=== PATIENT | female | born 1945 | race Caucasian/White ===

== ENCOUNTER → 2016-07-13 | Outpatient (CLI) | payer MEDICARE, BC ==
[2016-07-13 13:29] LABS: Basophils % (A) 1 %; CH 30.3; CHCM 31.4; Eosinophils # (A) 0.2 k/uL (0-0.7); Eosinophils % (A) 3 %; HCT 40.3 % (34.0-46.0); HDW 2.13; HGB 12.6 gm/dL (11.4-16.0); Luc # (Auto) 0.13; Luc % (Auto) 2; Lymphocytes # (A) 1.3 k/uL (1.0-4.8); Lymphocytes % (A) 18 %; MCH 30.4 pg (25.0-35.0); MCHC 31.3 g/dL (31.0-37.0); MCV 96.9 fL (80.0-100.0); Monocytes # (A) 0.4 k/uL (0-1.0); Monocytes % (A) 5 %; Neutrophils % (A) 72 %; RBC 4.16 m/uL (3.80-5.40); RDW 13.5 % (11.5-15.5); WBC (Perox) 7.72
[2016-07-13 13:45] LABS: ALT 46 U/L (9-52); AST 38 U/L (14-36); Alkaline Phosphatase 121 U/L (38-126); Anion Gap 8 mmol/L; Blood Urea Nitrogen 20 mg/dL (7-17); Calcium 9.8 mg/dL (8.4-10.2); Carbon Dioxide 29 mmol/L (22-30); Chloride 103 mmol/L (98-107); Cholesterol 197 mg/dL (<200); Glucose 152 mg/dL (74-99); HDL Cholesterol 80 mg/dL (40-60); Iron 117 ug/dL (37-170); Magnesium 1.7 mg/dL (1.6-2.3); Non-African American GFR(MDRD) >60 (>60 ml/min/1.73 sqM); Potassium 4.8 mmol/L (3.5-5.1); Sodium 140 mmol/L (137-145); Total Bilirubin 0.4 mg/dL (0.2-1.3); Total Protein 6.9 g/dL (6.3-8.2); Triglycerides 158 mg/dL (<150); Uric Acid 3.4 mg/dL (3.7-7.4)
[2016-07-13 13:54] LABS: % Iron Saturation 39.9 % (20-50); Total Iron Binding Capacity 293 ug/dL (265-497)
== END | disposition home or self-care (01) ==
LOC: LABWHC1 11:26
PROVIDERS: ATTEND Internal Medicine Nephrology
DX: N18.3 Chronic kidney disease, stage 3 (moderate) (principal); D64.9 Anemia, unspecified; E55.9 Vitamin D deficiency, unspecified; E11.65 Type 2 diabetes mellitus with hyperglycemia; N25.81 Secondary hyperparathyroidism of renal origin; M10.9 Gout, unspecified
CPT/HCPCS: 36415; 80053; 80061; 82306; 82728; 83540; 83550; 83735; 83970; 84100; 84443; 84550; 85025

== ENCOUNTER → 2016-10-18 | Outpatient (CLI) | payer MEDICARE, BC ==
[2016-10-18 12:18] LABS: ALT 34 U/L (9-52); AST 35 U/L (14-36); Alkaline Phosphatase 128 U/L (38-126); Anion Gap 9 mmol/L; Blood Urea Nitrogen 27 mg/dL (7-17); Calcium 9.7 mg/dL (8.4-10.2); Carbon Dioxide 29 mmol/L (22-30); Chloride 101 mmol/L (98-107); Cholesterol 220 mg/dL (<200); Glucose 217 mg/dL (74-99); HDL Cholesterol 85 mg/dL (40-60); Non-African American GFR(MDRD) >60 (>60 ml/min/1.73 sqM); Potassium 4.5 mmol/L (3.5-5.1); Sodium 139 mmol/L (137-145); Total Bilirubin 0.6 mg/dL (0.2-1.3); Total Protein 7.4 g/dL (6.3-8.2); Triglycerides 114 mg/dL (<150)
== END | disposition home or self-care (01) ==
LOC: LABWHC1 11:16
PROVIDERS: ATTEND Internal Medicine Endocrinology, Diabetes & Metabolism
DX: E11.65 Type 2 diabetes mellitus with hyperglycemia (principal)
CPT/HCPCS: 36415; 80053; 80061; 84443

== ENCOUNTER → 2016-11-05 | Outpatient (CLI) | payer MEDICARE, BC ==
[2016-11-05 11:51] LABS: Basophils % (A) 0 %; CH 30.6; CHCM 31.8; Eosinophils # (A) 0.2 k/uL (0-0.7); Eosinophils % (A) 3 %; HCT 40.8 % (34.0-46.0); HGB 12.8 gm/dL (11.4-16.0); Luc # (Auto) 0.12; Luc % (Auto) 2; Lymphocytes # (A) 1.5 k/uL (1.0-4.8); Lymphocytes % (A) 20 %; MCH 30.5 pg (25.0-35.0); MCHC 31.4 g/dL (31.0-37.0); MCV 96.9 fL (80.0-100.0); Monocytes # (A) 0.3 k/uL (0-1.0); Monocytes % (A) 4 %; Neutrophils # (A) 5.5 k/uL (1.3-7.7); Neutrophils % (A) 72 %; RBC 4.21 m/uL (3.80-5.40); RDW 13.3 % (11.5-15.5); WBC 7.7 k/uL (3.8-10.6); WBC (Perox) 7.88
[2016-11-05 12:10] LABS: Anion Gap 8 mmol/L; Blood Urea Nitrogen 20 mg/dL (7-17); Carbon Dioxide 30 mmol/L (22-30); Chloride 103 mmol/L (98-107); Glucose 134 mg/dL (74-99); Iron 143 ug/dL (37-170); Magnesium 1.8 mg/dL (1.6-2.3); Non-African American GFR(MDRD) >60 (>60 ml/min/1.73 sqM); Potassium 4.6 mmol/L (3.5-5.1); Sodium 141 mmol/L (137-145); Uric Acid 3.3 mg/dL (3.7-7.4)
[2016-11-05 12:21] LABS: % Iron Saturation 48.8 % (20-50); Prealbumin 19 mg/dL (18-36); Total Iron Binding Capacity 293 ug/dL (265-497)
[2016-11-05 12:26] LABS: Creatinine,Urine Random 198.4 mg/dL
[2016-11-05 12:59] LABS: Vitamin B12 625 pg/mL
== END | disposition home or self-care (01) ==
LOC: LABWHC1 10:56
PROVIDERS: ATTEND Nurse Practitioner Family
DX: D64.9 Anemia, unspecified (principal); M10.9 Gout, unspecified; N39.0 Urinary tract infection, site not specified; E55.9 Vitamin D deficiency, unspecified; N18.3 Chronic kidney disease, stage 3 (moderate); R53.83 Other fatigue; Z98.84 Bariatric surgery status
CPT/HCPCS: 36415; 80048; 82040; 82306; 82570; 82607; 82728; 82747; 83540; 83550; 83735; 83970; 84100; 84134; 84156; 84425; 84550; 84630; 85025

== ENCOUNTER 2016-12-16 02:56 | Observation (INO) | payer MEDICARE, BC ==
[2016-12-16 04:07] LABS: Appearance,Urine Clear (Clear); Bacteria,Urine Occasional /hpf; Bilirubin,Urine Negative (Negative); Glucose,Urine (UA) 4+ (Negative); Ketones,Urine Negative (Negative); Leukocyte Esterase,Urine Small (Negative); Nitrite,Urine Negative (Negative); Particle Count 7001; Protein,Urine 2+ (Negative); RBC,Urine 1 /hpf (0-5); Specific Gravity,Urine 1.018 (1.001-1.035); Squamous Epithelial Cell,Urine <1 /hpf (0-4); UA Billing (MACRO vs. MICRO) MICRO; Urobilinogen,Urine <2.0 mg/dL (<2.0); WBC,Urine 5 /hpf (0-5)
[2016-12-16] MEDS ORDERED: SODIUM CHLORIDE 0.9% 1,000 ML IV ONE (04:08)
--- NOTE | 2016-12-16 04:08 | ED ---
Fall HPI - General Chief Complaint: Fall Stated Complaint: altered mental status,fall Time Seen by Provider: 12/16/16 03:00 Source: EMS Mode of arrival: EMS - History of Present Illness Initial Comments: Patient is a 71-year-old woman brought by EMS to be evaluated after family found her lying on the floor. The patient does not recall how she came to be on the floor. She is denying any trauma or injury. MD Complaint: fall -: hour(s) When Fall Occurred: unsure Fall Witnessed: no Place Fall Occurred: home Loss of Consciousness: unsure Prolonged Down Time?: unclear - Related Data Home Medications Medication Instructions Recorded Confirmed Bumetanide [BUMEX] 2 mg PO QAM PRN 10/02/14 12/16/16 Cholecalciferol [Vitamin D3] 2,000 unit PO TID 10/02/14 12/16/16 Clopidogrel [Plavix] 75 mg PO AC-SUPPER 10/02/14 12/16/16 Doxercalciferol [Hectorol] 0.5 mcg PO MOTUWETHFR 10/02/14 12/16/16 Fluticasone Propionate [Flonase 2 spray EA NOSTRIL BID 10/02/14 12/16/16 Allergy Relief] Gabapentin [Neurontin] 100 mg PO QAM 10/02/14 12/16/16 Insulin Detemir [Levemir] 10 unit SQ HS 10/02/14 12/16/16 Loteprednol Etabonate [Lotemax] 1 drop BOTH EYES DAILY 10/02/14 12/16/16 Pantoprazole Sodium 40 mg PO AC-BRKFST 10/02/14 12/16/16 Refresh Optive Tears 1 drops BOTH EYES DAILY 10/02/14 12/16/16 cycloSPORINE [Restasis] 1 drop BOTH EYES BID 10/02/14 12/16/16 DULoxetine HCL [Cymbalta] 60 mg PO HS 04/16/15 12/16/16 hydrOXYzine PAMOATE [Vistaril] 50 mg PO TID PRN 04/16/15 12/16/16 traZODone HCL [Desyrel] 50 mg PO HS 06/06/15 12/16/16 ALPRAZolam [Xanax] 0.5 mg PO TID PRN 12/16/16 12/16/16 Diclofenac Sodium [Voltaren Gel] 2 gram TOPICAL DAILY PRN 12/16/16 12/16/16 Doxercalciferol [Hectorol] 0.5 mcg PO MOTUWETHFRSA 12/16/16 12/16/16 Gabapentin [Neurontin] 100 mg PO AC-SUPPER 12/16/16 12/16/16 Levothyroxine Sodium [Synthroid] 137 mcg PO AC-BRKFST 12/16/16 12/16/16 Milk Thistle 200 mg PO DAILY 12/16/16 12/16/16 amLODIPine BESYLATE [Norvasc] 5 tab PO AC-BRKFST 12/16/16 12/16/16 glipiZIDE [Glucotrol] 2.5 mg PO AC-BID 12/16/16 12/16/16 oxyCODONE-APAP 7.5-325MG [Percocet 1 tab PO BID 12/16/16 12/16/16 7.5-325 mg] Allergies Allergy/AdvReac Type Severity Reaction Status Date / Time triamcinolone Allergy Unknown Verified 12/16/16 07:59 caffeine AdvReac Nausea & Verified 12/16/16 07:59 Vomiting & Diarrhea hydrocodone bitartrate AdvReac Itching Verified 12/16/16 07:59 [From Lorcet (hydrocodone)] Penicillins AdvReac Nausea & Verified 12/16/16 07:59 Vomiting & Diarrhea tramadol HCl [From Ultram] AdvReac Itching Verified 12/16/16 07:59 ADHESIVE TAPE Allergy Rash/Hives Uncoded 12/16/16 03:20 BEE STINGS Allergy Swelling Uncoded 12/16/16 03:20 Review of Systems ROS Statement: Those systems with pertinent positive or pertinent negative responses have been documented in the HPI. ROS Other: All systems not noted in ROS Statement are negative. Constitutional: Denies: fever, chills, weakness Eyes: Denies: vision change Respiratory: Denies: cough, dyspnea Cardiovascular: Denies: chest pain Gastrointestinal: Denies: abdominal pain, vomiting Musculoskeletal: Denies: back pain Neurological: Denies: headache Past Medical History Past Medical History: Chest Pain / Angina, Diabetes Mellitus, Fibromyalgia, GERD /Reflux, Hyperlipidemia, Hypertension, Osteoarthritis (OA), Renal Disease, Rheumatoid Arthritis (RA), Thyroid Disorder Additional Past Medical History / Comment(s): BURSITIS, falls, chronic sacral wound(wcc) History of Any Multi-Drug Resistant Organisms: None Reported Past Surgical History: Adenoidectomy, Cholecystectomy, Hysterectomy, Orthopedic Surgery, Tonsillectomy Additional Past Surgical History / Comment(s): 3 RIGHT KNEE SURGERIES AND 2 LEFT TOTAL KNEE REPLACEMENTS SURGERIES. D&C'S. Lap Ignacio-en-Y gastric bypass [place] [address] Zambrano , total hysterectomy for fibroid tumor, tubal ligation Past Anesthesia/Blood Transfusion Reactions: Motion Sickness Past Psychological History: Anxiety, Depression Smoking Status: Never smoker Past Alcohol Use History: None Reported Past Drug Use History: None Reported - Past Family History Mother Family Medical History: Coronary Artery Disease (CAD) Additional Family Medical History / Comment(s): age 90 of heart failure. Had hx of Parkinsons and Narcolepsy Father Family Medical History: Coronary Artery Disease (CAD) Additional Family Medical History / Comment(s): age 73 of massive heart attack General Exam Limitations: altered mental status General appearance: alert, in no apparent distress, obese Head exam: Present: atraumatic, normocephalic, normal inspection Eye exam: Present: normal appearance, PERRL, EOMI. Absent: scleral icterus, conjunctival injection Neck exam: Present: normal inspection, tenderness (There is tenderness over the low cervical spine in the midline.), other (In cervical collar) Respiratory exam: Present: rales (Bilateral bases). Absent: respiratory distress, wheezes, rhonchi, stridor, chest wall tenderness Cardiovascular Exam: Present: regular rate, normal rhythm, systolic murmur GI/Abdominal exam: Present: soft. Absent: distended, tenderness, guarding, rebound, rigid Back exam: Present: normal inspection. Absent: CVA tenderness (R), CVA tenderness (L) Neurological exam: Present: alert, CN II-XII intact. Absent: oriented X3 ( Patient oriented to person and realizes that she is a hospital, she did not recall the exact date), motor sensory deficit Skin exam: Present: warm, dry, intact, normal color Course Vital Signs 12/16/16 12/16/16 12/16/16 03:14 04:12 06:24 Temperature 97.1 F L Pulse Rate 83 74 Respiratory 18 18 Rate Blood Pressure 188/74 179/81 170/81 O2 Sat by Pulse 94 L 98 94 L Oximetry 12/16/16 12/16/16 12/16/16 07:28 07:45 08:06 Temperature 97.9 F Pulse Rate 63 Respiratory 18 Rate Blood Pressure 200/94 186/89 O2 Sat by Pulse 97 Oximetry Medical Decision Making - Lab Data Result diagrams: 12/17/16 05:37 12/17/16 05:37 Lab Results 12/16/16 12/16/16 12/16/16 Range/Units 03:30 03:30 03:30 WBC 7.1 (3.8-10.6) k/uL RBC 3.95 (3.80-5.40) m/uL Hgb 12.3 (11.4-16.0) gm/dL Hct 37.0 (34.0-46.0) % MCV 93.6 (80.0-100.0) fL MCH 31.0 (25.0-35.0) pg MCHC 33.1 (31.0-37.0) g/dL RDW 13.8 (11.5-15.5) % Plt Count 240 (150-450) k/uL Neutrophils % 73 % Lymphocytes % 16 % Monocytes % 6 % Eosinophils % 3 % Basophils % 1 % Neutrophils # 5.2 (1.3-7.7) k/uL Lymphocytes # 1.2 (1.0-4.8) k/uL Monocytes # 0.4 (0-1.0) k/uL Eosinophils # 0.2 (0-0.7) k/uL Basophils # 0.1 (0-0.2) k/uL PT 10.1 (9.0-12.0) sec INR 1.0 (<1.1) APTT 23.1 (22.0-30.0) sec D-Dimer 0.99 H (<0.60) mg/L FEU Sodium 138 (137-145) mmol/L Potassium 4.7 (3.5-5.1) mmol/L Chloride 103 (98-107) mmol/L Carbon Dioxide 24 (22-30) mmol/L Anion Gap 11 mmol/L BUN 30 H (7-17) mg/dL Creatinine 0.80 (0.52-1.04) mg/dL Est GFR (MDRD) Af Amer >60 (>60 ml/min/1.73 sqM) Est GFR (MDRD) Non-Af >60 (>60 ml/min/1.73 sqM) Glucose 390 H (74-99) mg/dL Estimated Ave Glu mg/dL mg/dL Hemoglobin A1c (4.2-6.1) % Calcium 9.3 (8.4-10.2) mg/dL Magnesium 1.9 (1.6-2.3) mg/dL Iron (37-170) ug/dL TIBC (265-497) ug/dL % Saturation (20-50) % Total Bilirubin 0.4 (0.2-1.3) mg/dL AST 30 (14-36) U/L ALT 36 (9-52) U/L Alkaline Phosphatase 116 (38-126) U/L Troponin I (0.000-0.034) ng/mL Total Protein 6.4 (6.3-8.2) g/dL Albumin 3.7 (3.5-5.0) g/dL TSH (0.465-4.680) mIU/L Free T4 (0.78-2.19) ng/dL Free T3 pg/mL (2.8-5.3) pg/ml Urine Color Urine Appearance (Clear) Urine pH (5.0-8.0) Ur Specific [place] (1.001-1.035) Urine Protein (Negative) Urine Glucose (UA) (Negative) Urine Ketones (Negative) Urine Blood (Negative) Urine Nitrite (Negative) Urine Bilirubin (Negative) Urine Urobilinogen (<2.0) mg/dL Ur Leukocyte Esterase (Negative) Urine RBC (0-5) /hpf Urine WBC (0-5) /hpf Ur Squamous Epith Cells (0-4) /hpf Urine Bacteria (None) /hpf Hyaline Casts (0-2) /lpf 12/16/16 12/16/16 12/16/16 Range/Units 03:30 03:30 03:30 WBC (3.8-10.6) k/uL RBC (3.80-5.40) m/uL Hgb (11.4-16.0) gm/dL Hct (34.0-46.0) % MCV (80.0-100.0) fL MCH (25.0-35.0) pg MCHC (31.0-37.0) g/dL RDW (11.5-15.5) % Plt Count (150-450) k/uL Neutrophils % % Lymphocytes % % Monocytes % % Eosinophils % % Basophils % % Neutrophils # (1.3-7.7) k/uL Lymphocytes # (1.0-4.8) k/uL Monocytes # (0-1.0) k/uL Eosinophils # (0-0.7) k/uL Basophils # (0-0.2) k/uL PT (9.0-12.0) sec INR (<1.1) APTT (22.0-30.0) sec D-Dimer (<0.60) mg/L FEU Sodium (137-145) mmol/L Potassium (3.5-5.1) mmol/L Chloride (98-107) mmol/L Carbon Dioxide (22-30) mmol/L Anion Gap mmol/L BUN (7-17) mg/dL Creatinine (0.52-1.04) mg/dL Est GFR (MDRD) Af Amer (>60 ml/min/1.73 sqM) Est GFR (MDRD) Non-Af (>60 ml/min/1.73 sqM) Glucose (74-99) mg/dL Estimated Ave Glu mg/dL 186 mg/dL Hemoglobin A1c 8.1 H (4.2-6.1) % Calcium (8.4-10.2) mg/dL Magnesium (1.6-2.3) mg/dL Iron (37-170) ug/dL TIBC (265-497) ug/dL % Saturation (20-50) % Total Bilirubin (0.2-1.3) mg/dL AST (14-36) U/L ALT (9-52) U/L Alkaline Phosphatase (38-126) U/L Troponin I <0.012 (0.000-0.034) ng/mL Total Protein (6.3-8.2) g/dL Albumin (3.5-5.0) g/dL TSH (0.465-4.680) mIU/L Free T4 1.14 (0.78-2.19) ng/dL Free T3 pg/mL 2.6 L (2.8-5.3) pg/ml Urine Color Urine Appearance (Clear) Urine pH (5.0-8.0) Ur Specific [place] (1.001-1.035) Urine Protein (Negative) Urine Glucose (UA) (Negative) Urine Ketones (Negative) Urine Blood (Negative) Urine Nitrite (Negative) Urine Bilirubin (Negative) Urine Urobilinogen (<2.0) mg/dL Ur Leukocyte Esterase (Negative) Urine RBC (0-5) /hpf Urine WBC (0-5) /hpf Ur Squamous Epith Cells (0-4) /hpf Urine Bacteria (None) /hpf Hyaline Casts (0-2) /lpf 12/16/16 12/16/16 Range/Units 03:30 03:50 WBC (3.8-10.6) k/uL RBC (3.80-5.40) m/uL Hgb (11.4-16.0) gm/dL Hct (34.0-46.0) % MCV (80.0-100.0) fL MCH (25.0-35.0) pg MCHC (31.0-37.0) g/dL RDW (11.5-15.5) % Plt Count (150-450) k/uL Neutrophils % % Lymphocytes % % Monocytes % % Eosinophils % % Basophils % % Neutrophils # (1.3-7.7) k/uL Lymphocytes # (1.0-4.8) k/uL Monocytes # (0-1.0) k/uL Eosinophils # (0-0.7) k/uL Basophils # (0-0.2) k/uL PT (9.0-12.0) sec INR (<1.1) APTT (22.0-30.0) sec D-Dimer (<0.60) mg/L FEU Sodium (137-145) mmol/L Potassium (3.5-5.1) mmol/L Chloride (98-107) mmol/L Carbon Dioxide (22-30) mmol/L Anion Gap mmol/L BUN (7-17) mg/dL Creatinine (0.52-1.04) mg/dL Est GFR (MDRD) Af Amer (>60 ml/min/1.73 sqM) Est GFR (MDRD) Non-Af (>60 ml/min/1.73 sqM) Glucose (74-99) mg/dL Estimated Ave Glu mg/dL mg/dL Hemoglobin A1c (4.2-6.1) % Calcium (8.4-10.2) mg/dL Magnesium (1.6-2.3) mg/dL Iron 100 (37-170) ug/dL TIBC 293 (265-497) ug/dL % Saturation 34.1 (20-50) % Total Bilirubin (0.2-1.3) mg/dL AST (14-36) U/L ALT (9-52) U/L Alkaline Phosphatase (38-126) U/L Troponin I (0.000-0.034) ng/mL Total Protein (6.3-8.2) g/dL Albumin (3.5-5.0) g/dL TSH 2.090 (0.465-4.680) mIU/L Free T4 (0.78-2.19) ng/dL Free T3 pg/mL (2.8-5.3) pg/ml Urine Color Light Yellow Urine Appearance Clear (Clear) Urine pH 6.0 (5.0-8.0) Ur Specific [place] 1.018 (1.001-1.035) Urine Protein 2+ H (Negative) Urine Glucose (UA) 4+ H (Negative) Urine Ketones Negative (Negative) Urine Blood Negative (Negative) Urine Nitrite Negative (Negative) Urine Bilirubin Negative (Negative) Urine Urobilinogen <2.0 (<2.0) mg/dL Ur Leukocyte Esterase Small H (Negative) Urine RBC 1 (0-5) /hpf Urine WBC 5 (0-5) /hpf Ur Squamous Epith Cells <1 (0-4) /hpf Urine Bacteria Occasional H (None) /hpf Hyaline Casts 3 H (0-2) /lpf Disposition Clinical Impression: Syncope, Fall Disposition: ADMITTED IP TO THIS HOSP Condition: Fair
[2016-12-16 04:26] LABS: Basophils # (A) 0.1 k/uL (0-0.2); Basophils % (A) 1 %; CH 30.2; CHCM 32.5; Eosinophils # (A) 0.2 k/uL (0-0.7); Eosinophils % (A) 3 %; HDW 2.16; HGB 12.3 gm/dL (11.4-16.0); Luc # (Auto) 0.09; Luc % (Auto) 1; Lymphocytes # (A) 1.2 k/uL (1.0-4.8); Lymphocytes % (A) 16 %; MCHC 33.1 g/dL (31.0-37.0); MCV 93.6 fL (80.0-100.0); Mean Platelet Volume 7.6; Monocytes # (A) 0.4 k/uL (0-1.0); Monocytes % (A) 6 %; Neutrophils # (A) 5.2 k/uL (1.3-7.7); Neutrophils % (A) 73 %; RBC 3.95 m/uL (3.80-5.40); RDW 13.8 % (11.5-15.5); WBC 7.1 k/uL (3.8-10.6); WBC (Perox) 7.02
[2016-12-16 04:35] LABS: ALT 36 U/L (9-52); AST 30 U/L (14-36); Alkaline Phosphatase 116 U/L (38-126); Anion Gap 11 mmol/L; Blood Urea Nitrogen 30 mg/dL (7-17); Calcium 9.3 mg/dL (8.4-10.2); Carbon Dioxide 24 mmol/L (22-30); Chloride 103 mmol/L (98-107); Glucose 390 mg/dL (74-99); Magnesium 1.9 mg/dL (1.6-2.3); Non-African American GFR(MDRD) >60 (>60 ml/min/1.73 sqM); Potassium 4.7 mmol/L (3.5-5.1); Sodium 138 mmol/L (137-145); Total Bilirubin 0.4 mg/dL (0.2-1.3); Total Protein 6.4 g/dL (6.3-8.2)
[2016-12-16 04:42] LABS: Partial Thromboplastin Time 23.1 sec (22.0-30.0); Prothrombin Time 10.1 sec (9.0-12.0)
--- NOTE | 2016-12-16 05:04 | CT ---
EXAM: CT Head Without Intravenous Contrast CLINICAL HISTORY: Reason: syncope TECHNIQUE: Axial computed tomography images of the head/brain without intravenous contrast. CTDI is 60.30 mGy and DLP is 1072.30 mGy-cm. This CT exam was performed using one or more of the following dose reduction techniques: automated exposure control, adjustment of the mA and/or kV according to patient size, and/or use of iterative reconstruction technique. COMPARISON: 04/16/2015. FINDINGS: Brain: Probable mild microangiopathy.. No hemorrhage. No significant white matter disease. No edema. Ventricles: Unremarkable. No ventriculomegaly. Bones/joints: Unremarkable. No acute fracture. Soft tissues: Unremarkable. Sinuses: Unremarkable as visualized. No acute sinusitis. Mastoid air cells: Unremarkable as visualized. No mastoid effusion. IMPRESSION: Probable mild microangiopathy. No evidence of acute transcortical infarct or acute intracranial hemorrhage. EXAM: CT Cervical Spine Without Intravenous Contrast CLINICAL HISTORY: Reason: syncope TECHNIQUE: Axial computed tomography images of the cervical spine without intravenous contrast. CTDI is 21.40 mGy and DLP is 406.40mGy-cm. This CT exam was performed using one or more of the following dose reduction techniques: automated exposure control, adjustment of the mA and/or kV according to patient size, and/or use of iterative reconstruction technique. COMPARISON: 04/16/2015 FINDINGS: Vertebrae: Unremarkable. No acute fracture. Discs/spinal canal/neural foramina: Multilevel mild to moderate degenerative changes are again present in the cervical spine especially at the levels of C3-C4, C4-C5 and C5-C6. Findings are unchanged from the prior study. Mild narrowing of the canal is again seen. Soft tissues: Unremarkable. Vasculature: Carotid artery calcifications are again noted. Lung apices: Unremarkable as visualized. IMPRESSION: No acute findings. Multilevel mild to moderate iterative changes in cervical spine, as seen on prior study.
--- NOTE | 2016-12-16 05:06 | XR ---
EXAM: XR Chest, 1 View CLINICAL HISTORY: Reason: syncope TECHNIQUE: Frontal view of the chest. COMPARISON: 07/01/2015 FINDINGS: Lungs: Probable linear atelectasis involving the left lower lung zone, as seen on prior study. No evidence of consolidation. Pleural space: Unremarkable. No pneumothorax. Heart: Unremarkable. No cardiomegaly. Mediastinum: Unremarkable. Bones/joints: Unremarkable. IMPRESSION: No acute findings.
[2016-12-16] MEDS ORDERED: INSULIN REGULAR 100 UNIT/ML VIAL SQ STA (06:07)
[2016-12-16] MEDS ORDERED: RX INFO: IV CONTRAST WAS GIVEN 1 EACH MISC MISCELLANE PRN (06:08)
[2016-12-16] MEDS ORDERED: NITROGLYCERIN SL TABS 0.4 MG TAB SUBLINGUAL PRN (06:32)
[2016-12-16] MEDS ORDERED: SODIUM CHLORIDE 0.9% 1,000 ML IV SCH (06:45)
--- NOTE | 2016-12-16 07:27 | CT ---
EXAMINATION TYPE: CT chest angio for PE DATE OF EXAM: 12/16/2016 COMPARISON: NONE HISTORY: Elevated D dimer with pain CT DLP: 378.2 mGycm. Automated Exposure Control for Dose Reduction was Utilized. CONTRAST: CTA scan of the thorax is performed with IV Contrast, patient injected with 75 mL of Omnipaque 350, p ulmonary embolism protocol. MIP Images are created on CT scanner and reviewed. FINDINGS: LUNGS: There are some dependent and linear atelectasis in both lung bases. There is trace left-sided pleural effusion and/or thickening. There is mild biapical pleural thickening. No suspicious nodule o r mass is present bilaterally. No pneumothorax is seen bilaterally. No worrisome consolidation or foc al groundglass opacity is seen MEDIASTINUM: There is slightly suboptimal bolus with heterogeneity and contrast noted in left heart s ystem but there is no convincing CT evidence for pulmonary embolism. There are no greater than 1 cm hilar or mediastinal lymph nodes. No significant pericardial effusion is seen. Cardiomegaly is iden tified with mild to moderate left ventricular dilatation. Thyroid gland is small in size. There is pr ominent coronary artery calcification and/or stent in the LAD distribution. Main pulmonary artery ronal sures 3.0 cm diameter on axial image 51, adjacent ascending aorta measures 3.7 cm in diameter. OTHER: Surgical sutures from gastric bypass surgery are seen at epigastric region. Cholecystectomy cl ips are present. Osseous structures are demineralized. Multilevel spurring throughout the spine is pr esent. IMPRESSION: 1. No CT evidence for pulmonary embolism. 2. Scattered fibrosis and atelectatic change, no suspicious acute pulmonary process identified. There is cardiomegaly with left ventricular dilatation and trace left effusion noted.
[2016-12-16] MEDS ORDERED: hydrOXYzine PAMOATE 25 MG CAP PO PRN (07:36)
[2016-12-16] MEDS ORDERED: Acetaminophen-Codeine 300-30mg TAB PO PRN ×2 (07:36→14:51)
[2016-12-16] MEDS ORDERED: prednisoLONE ACETATE 1% OPHTH DROPS 1 ML BTL BOTH EYES PRN (07:36)
[2016-12-16] MEDS ORDERED: ALPRAZolam 0.25 MG TAB PO PRN ×2 (07:36→14:52)
[2016-12-16] MEDS ORDERED: cycloSPORINE 0.05% OPHTH 0.4 ML DROPERETTE BOTH EYES PRN (07:36)
[2016-12-16] MEDS ORDERED: IBUPROFEN 600 MG TAB PO PRN (07:36)
[2016-12-16] MEDS ORDERED: HEPARIN SODIUM,PORCINE 5,000 UNIT/ML 1 ML VIAL SQ SCH (08:00)
[2016-12-16 08:49] LABS: Glucose,Whole Blood 96 mg/dL (75-99)
[2016-12-16] MEDS ORDERED: amLODIPine 10 MG TAB PO SCH (09:00)
[2016-12-16] MEDS ORDERED: CYCLOBENZAPRINE 10 MG TAB PO SCH (09:00)
[2016-12-16] MEDS ORDERED: NON-FORMULARY DRUG (Dapagliflozin Propanediol [Farxiga] 5 MG) PO SCH (09:00)
[2016-12-16] MEDS ORDERED: DULoxetine HCL 60 MG CAPSULE.DR PO SCH ×2 (09:00→12:07)
[2016-12-16] MEDS ORDERED: CIPROFLOXACIN HCL 500 MG TAB PO SCH (09:00)
[2016-12-16 09:59] LABS: Creatine Kinase 88 U/L (30-135)
[2016-12-16 10:10] LABS: Creatine Kinase MB 1.3 ng/mL (0.0-2.4); Troponin I <0.012 ng/mL (0.000-0.034)
--- NOTE | 2016-12-16 11:36 | P.HPIM ---
History of Present Illness H&P Date: 12/16/16 Chief Complaint: Passed out This is a 71-year-old female with a known history of diabetes mellitus, fibromyalgia, hyperlipidemia, hypertension, rheumatoid arthritis and hypothyroidism. Patient was brought into the emergency room after syncopal episode. Patient reports she got up around midnight to go use the bathroom to urinate. She was walking across the kitchen to get to the bathroom when she passed out. Patient doesn't recall the event. She may have been on the floor for about 2 hours. was at bedside. It appears that their daughter is on that found the patient about 2:00 in the morning. And ambulance was called. When the ambulance arrived. Patient was awake and alert. Patient reports feeling very fatigued and drowsy throughout the day. She had a rough day. She had to put her dog down as well as attend her son's [id number] . Patient has been admitted to the observation unit. Initially her blood pressures were elevated in the emergency room. She had a blood pressure as high as 200/94. She was restarted on her home medications and blood pressures are 153/73. Patient was evaluated by cardiology they have decreased the Norvasc to 5 mg daily and started metoprolol 12.5 mg twice a day. Carotid and echo have been ordered a computed tomography scan the brain showed probable mild microangiopathy. And CTA of the chest was negative for PE did revealed scattered fibrosis and atelectatic changes. EKG showed sinus rhythm with PACs. Patient's blood sugar was 390. She received 8 units of NovoLog in the emergency room. Blood sugars have shown improvement. Patient reports that she had been eating and drinking yesterday. But she did eat a later dinner due to being at the home and falling asleep earlier in the day. Patient denies any chest pain or shortness of breath. Denies any nausea or vomiting. Denies any bowel movement changes or urinary symptoms. Denies any cough fever chills or sweats. Patient reports that she didn't trip or fall. She does not know why she fell to the floor except that she had been stressed earlier in the day. Nursing staff did mention that patient was having some episodes of forgetfulness. They gave the example of patient ordered lunch and then later asked "what did I order for lunch." Review of Systems Please refer to HPI otherwise unremarkable Past Medical History Past Medical History: Chest Pain / Angina, Diabetes Mellitus, Fibromyalgia, GERD /Reflux, Hyperlipidemia, Hypertension, Osteoarthritis (OA), Renal Disease, Rheumatoid Arthritis (RA), Skin Disorder, Thyroid Disorder Additional Past Medical History / Comment(s): IDDM type II, PUD, hemorrhoids, UTIs, R lower extremity cellulitis in past, chronic sacral wound now healed-tx in [facility] in past, iron deficiency anemia, eczema, DDD, chronic back pain, spinal stenosis C6-C7, bilateral shoulder bursitis, past L rib fracture, falls, hypothyroid, sinus problems. History of Any Multi-Drug Resistant Organisms: None Reported Past Surgical History: Adenoidectomy, Appendectomy, Bariatric Surgery, Breast Surgery, Cholecystectomy, Hysterectomy, Joint Replacement, Orthopedic Surgery, Tonsillectomy, Tubal Ligation Additional Past Surgical History / Comment(s): L knee scope and replacement, R knee 2 scopes and replaced, D&C'S, Lap Ignacio-en-Y gastric bypass [place] [address] Zambrano , total hysterectomy for fibroid tumor, tubal ligation, EGD/colonoscopy, L breast benign bx. Past Anesthesia/Blood Transfusion Reactions: Motion Sickness, Postoperative Nausea & Vomiting (PONV) Additional Past Anesthesia/Blood Transfusion Reaction / Comment(s): Pt received blood in 2012 without reaction. Smoking Status: Never smoker - Past Family History Mother Family Medical History: Coronary Artery Disease (CAD) Additional Family Medical History / Comment(s): age 90 of heart failure. Had hx of Parkinsons and Narcolepsy Father Family Medical History: Coronary Artery Disease (CAD) Additional Family Medical History / Comment(s): age 73 of massive heart attack Medications and Allergies Home Medications Medication Instructions Recorded Confirmed Type Bumetanide [BUMEX] 2 mg PO QAM PRN 10/02/14 12/16/16 History Cholecalciferol [Vitamin D3] 2,000 unit PO TID 10/02/14 12/16/16 History Clopidogrel [Plavix] 75 mg PO AC-SUPPER 10/02/14 12/16/16 History Doxercalciferol [Hectorol] 0.5 mcg PO MOTUWETHFR 10/02/14 12/16/16 History Fluticasone Propionate [Flonase 2 spray EA NOSTRIL BID 10/02/14 12/16/16 History Allergy Relief] Gabapentin [Neurontin] 100 mg PO QAM 10/02/14 12/16/16 History Insulin Detemir [Levemir] 10 unit SQ HS 10/02/14 12/16/16 History Loteprednol Etabonate [Lotemax] 1 drop BOTH EYES DAILY 10/02/14 12/16/16 History Pantoprazole Sodium 40 mg PO AC-BRKFST 10/02/14 12/16/16 History Refresh Optive Tears 1 drops BOTH EYES DAILY 10/02/14 12/16/16 History cycloSPORINE [Restasis] 1 drop BOTH EYES BID 10/02/14 12/16/16 History DULoxetine HCL [Cymbalta] 60 mg PO HS 04/16/15 12/16/16 History hydrOXYzine PAMOATE [Vistaril] 50 mg PO TID PRN 04/16/15 12/16/16 History traZODone HCL [Desyrel] 50 mg PO HS 06/06/15 12/16/16 History ALPRAZolam [Xanax] 0.5 mg PO TID PRN 12/16/16 12/16/16 History Diclofenac Sodium [Voltaren Gel] 2 gram TOPICAL DAILY PRN 12/16/16 12/16/16 History Doxercalciferol [Hectorol] 0.5 mcg PO MOTUWETHFRSA 12/16/16 12/16/16 History Gabapentin [Neurontin] 100 mg PO AC-SUPPER 12/16/16 12/16/16 History Levothyroxine Sodium [Synthroid] 137 mcg PO AC-BRKFST 12/16/16 12/16/16 History Milk Thistle 200 mg PO DAILY 12/16/16 12/16/16 History amLODIPine BESYLATE [Norvasc] 5 tab PO AC-BRKFST 12/16/16 12/16/16 History glipiZIDE [Glucotrol] 2.5 mg PO AC-BID 12/16/16 12/16/16 History oxyCODONE-APAP 7.5-325MG [Percocet 1 tab PO BID 12/16/16 12/16/16 History 7.5-325 mg] Allergies Allergy/AdvReac Type Severity Reaction Status Date / Time triamcinolone Allergy Unknown Verified 12/16/16 07:59 caffeine AdvReac Nausea & Verified 12/16/16 07:59 Vomiting & Diarrhea hydrocodone bitartrate AdvReac Itching Verified 12/16/16 07:59 [From Lorcet (hydrocodone)] Penicillins AdvReac Nausea & Verified 12/16/16 07:59 Vomiting & Diarrhea tramadol HCl [From Ultram] AdvReac Itching Verified 12/16/16 07:59 ADHESIVE TAPE Allergy Rash/Hives Uncoded 12/16/16 03:20 BEE STINGS Allergy Swelling Uncoded 12/16/16 03:20 Physical Exam Vitals: Vital Signs Temp Pulse Pulse Resp BP BP BP 12/16/16 09:59 74 153/73 12/16/16 08:55 63 18 12/16/16 08:34 97.4 F L 63 18 196/84 12/16/16 08:06 186/89 12/16/16 07:45 200/94 12/16/16 07:28 97.9 F 63 18 12/16/16 06:24 170/81 12/16/16 04:12 74 18 179/81 12/16/16 03:14 97.1 F L 83 18 188/74 Pulse Ox 12/16/16 09:59 12/16/16 08:55 12/16/16 08:34 99 12/16/16 08:06 12/16/16 07:45 12/16/16 07:28 97 12/16/16 06:24 94 L 12/16/16 04:12 98 12/16/16 03:14 94 L Intake and Output 12/15/16 12/16/16 12/16/16 22:59 06:59 14:59 Intake Total 420 Output Total 400 Balance 20 Intake: Oral 420 Output: Urine 400 Other: Voiding Method Toilet Weight 158.757 kg 83.9 kg Patient Weight 12/17/16 06:59 Weight 83.9 kg Head normocephalic Neck supple Lungs clear to auscultation bilaterally no wheezing or crackles Heart regular rate and rhythm S1-S2, no rub or gallop Abdomen is soft nontender nondistended positive bowel sounds no hepatosplenomegaly Extremities no edema Neuro alert and orientated to 3. Hand employment manager equal bilaterally lower extremity strength equal bilaterally no facial droop or slurred speech. Initially during exam patient was sleeping but she was arousable and able to answer questions appropriately Results CBC & Chem 7: 12/16/16 03:30 12/16/16 03:30 Labs: Abnormal Lab Results - Last 24 Hours (Table) 12/16/16 12/16/16 12/16/16 Range/Units 03:30 03:30 03:50 D-Dimer 0.99 H (<0.60) mg/L FEU BUN 30 H (7-17) mg/dL Glucose 390 H (74-99) mg/dL Urine Protein 2+ H (Negative) Urine Glucose (UA) 4+ H (Negative) Ur Leukocyte Esterase Small H (Negative) Urine Bacteria Occasional H (None) /hpf Hyaline Casts 3 H (0-2) /lpf Thrombosis Risk Factor Assmnt - Choose All That Apply Any of the Below Risk Factors Present?: Yes Each Factor Represents 1 point: Obesity (BMI >25) Other Risk Factors: Yes Each Risk Factor Represents 2 Points: Age 61-74 years Other congenital or acquired thrombophilia - If yes, enter type in comment: No Thrombosis Risk Factor Assessment Total Risk Factor Score: 3 Thrombosis Risk Factor Assessment Level: Moderate Risk Assessment and Plan Plan: 1. Syncopal episode: Workup in progress. EKG and telemetry is showing sinus rhythm. Check echo and carotid ultrasound. Computed tomography scan of the brain showed no acute Changes. It did show probable mild microangiopathy. CTA of the chest was negative for PE did show scattered fibrosis and atelectatic changes. Troponins are negative 3 sets. Cardiology and neurology have been consulted. Check for orthostatic hypotension. Patient admits to having a stressful day she had to put her dog down as well as attend a 2. Accelerated hypertension with hypertensive emergency on admission on patient was restarted on her Norvasc and Bumex. Cardiology has evaluated patient and has decreased the Norvasc to 5 mg daily and added metoprolol 12.5 mg twice a day. Blood pressures are showing improvement. Last blood pressure was 153/73. Continue to monitor. 3. Diabetes mellitus type 2: Patient did have elevated blood sugar on admission. She received an extra 8 units of Humalog. Continue with her Levemir 10 units at sliding scale coverage resume her glipizide. Check hemoglobin A1c. 4. Hypothyroidism resume her home Synthroid 137 g daily. Agree with checking a TSH and free T3 and T4 5. History of rheumatoid arthritis 6. History of fibromyalgia 7. Hyperlipidemia 8. Urinalysis showing small leukocyte esterase with no symptoms. Check urine culture. Hold off on antibiotics for now. 9. Hemorrhoids add Anusol suppositories GI prophylaxis protonix and DVT prophylaxis Lovenox Time with Patient: Greater than 30 (Greater than 50% of the total time spent in counseling and coordination of care.I performed an examination of the patient and discussed their management with the physician [employer]. I have reviewed the Physician [employer]'s notes and agree with the documented findings and plan of care)
[2016-12-16] MEDS: BUMETANIDE 1 MG TAB PO SCH ×2 (11:58→17:58)
[2016-12-16] MEDS: ARTIFICIAL TEARS-HYPROMELLOSE DROPS 15 ML BTL BOTH EYES SCH (11:58)
[2016-12-16] MEDS: CHOLECALCIFEROL 1,000 UNIT TAB PO SCH ×2 (11:58→21:14)
[2016-12-16] MEDS: GABAPENTIN 100 MG CAP PO SCH ×2 (11:59→21:15)
[2016-12-16] MEDS: FLUTICASONE 50MCG/SPRAY NASAL 16GM EA NOSTRIL SCH ×3 (11:59→21:15)
[2016-12-16] MEDS: PANTOPRAZOLE 40 MG TABLET PO SCH (11:59)
[2016-12-16] MEDS: LEVOTHYROXINE 137 MCG TAB PO SCH (12:00)
[2016-12-16] MEDS ORDERED: DOXERCALCIFEROL 0.5 MCG CAP PO SCH ×2 (12:00→21:00)
[2016-12-16] MEDS: MULTIVITAMINS, THERA 1 EACH TAB PO SCH (12:00)
[2016-12-16 12:02] LABS: Glucose,Whole Blood 93 mg/dL (75-99)
[2016-12-16] MEDS: HYDROCORTISONE SUPPOSITORY 25 MG SUPP RECTAL SCH ×2 (12:02→21:16)
[2016-12-16] MEDS: INSULIN LISPRO (humaLOG) 300 UNIT/3 ML VIAL SQ SCH ×3 (12:24→21:16)
[2016-12-16 13:03] LABS: Hemoglobin A1C 8.1 % (4.2-6.1)
--- NOTE | 2016-12-16 13:09 | US ---
EXAMINATION TYPE: US carotid duplex BILAT DATE OF EXAM: 12/16/2016 COMPARISON: Carotid ultrasound May 05, 2014. CTA chest from earlier today. CLINICAL HISTORY: syncope. EXAM MEASUREMENTS: RIGHT: Peak Systolic Velocity (PSV) cm/sec ----- Right CCA: 47.2 ----- Right ICA: 60.1 ----- Right ECA: 56.9 ICA/CCA ratio: 1.3 RIGHT: End Diastole cm/sec ----- Right CCA: 8.4 ----- Right ICA: 18.1 ----- Right ECA: 0 LEFT: Peak Systolic Velocity (PSV) cm/sec ----- Left CCA: 62.9 ----- Left ICA: 67.6 ----- Left ECA: 63.7 ICA/CCA ratio: 1.1 LEFT: End Diastole cm/sec ----- Left CCA: 11.2 ----- Left ICA: 19.7 ----- Left ECA: 0 VERTEBRALS (direction of flow): Right Vertebral: Antegrade Left Vertebral: Antegrade No significant stenosis visualized. Grayscale images show mild eccentric hyperechoic plaque at right carotid bulb which shadowing. Simila r mild eccentric shadowing hyperechoic plaque left carotid bulb is seen. Velocity measurements and ra tios remain within normal limits bilaterally. IMPRESSION: Mild atherosclerotic changes bilaterally without hemodynamically significant stenosis se en in either internal carotid artery. Criteria for Assigning % of Stenosis / Diameter reduction (Estimation based on the indirect measurements of the internal carotid artery velocities (ICA PSV). 1. Normal (no stenosis)=ICA PSV < 125 cm/s: ratio < 2.0: ICA EDV<40 cm/s. 2. Less than 50% stenosis=ICA PSV < 125 cm/s: ratio < 2.0: ICA EDV<40 cm/s. 3. 50 to 69% stenosis=ICA PSV of 125 to 230 cm/s: ration 2.0 ? 4.0: ICA EDV 40-100 cm/s. 4. Greater than 70% stenosis to near occlusion= ICA PSV > 230 cm/s: ratio > 4.0: ICA EDV > 100 cm/s. 5. Near occlusion= ICA PSV velocities may be low or undetectable: variable ratio and ICA EDV. 6. Total occlusion=unable to detect flow.
--- NOTE | 2016-12-16 14:32 | CONS ---
Mirian Briceno presents here with an episode of being found unresponsive at home by her daughter. Apparently, this lady went to her neurologist, Dr. Molina who evaluated her and did some EMG-type studies and she came home, was resting comfortably and she took a nap on her recliner and then she woke up and the next she remembers and she was trying to go to bed at about 2:30 in the morning , her daughter found her on the floor in the kitchen. Patient does not recall any information. She did feel exhausted all of yesterday, did not have much energy but does not have any recollection. There is no injury, there is no loss of bladder or bowel control. She is resting comfortably without symptoms. She has a history of type 2 diabetes, hypertension, hyperlipidemia, rheumatoid arthritis and thyroid disorder. There is no documented evidence of myocardial infarction or CVA. She is resting comfortably at the time of my evaluation gives some history but she is somewhat slow and seems a bit lethargic. ALLERGIES: She is allergic to CAFFEINE, HYDROCODONE, TRAMADOL and TRIAMCINOLONE. Past medical history includes type 2 diabetes mellitus, hypertension, hyperlipidemia and also has some neurological issues and is under the care of Dr. Molina. Medications include Protonix, trazodone, amlodipine, levothyroxine, insulin, gabapentin and she takes Bumex 1 mg b.i.d., Plavix 75 mg daily and Flonase inhaler. This patient also had a CT angiography performed because of elevated d-dimer and this was normal without any evidence of pulmonary embolism. She also had a CT of her head and cervical spine performed which did not reveal any significant abnormalities. On examination, blood pressure is 150/73, pulse rate is 70 per minute, regular. HEENT: Unremarkable. Fundus was not examined by me. Neck is supple, there is JVD of 1 cm, no carotid bruit. Heart exam reveals S1, S2 heard normally with irregular rhythm. Short systolic murmur at the base. Lungs reveal diminished air entry. Abdomen is distended, nontender, lower extremities reveal diminished pulses. Central system grossly no focal deficits. There is generalized weakness EKG reveals sinus mechanism, there are some PAC's, minor IVCD, poor R-wave progression. IMPRESSION: 1. Episode of unresponsiveness, unlikely to be cardiac, syncope. Rule out any neurologic issues. Patient is already under the care of a neurologist. 2. Probable sleep disorder. This needs to be investigated. 3. Type 2 diabetes mellitus. 4. Hypertension. 5. History of some recent workup for Neurology. Details are unclear. RECOMMENDATION: I am recommending that we place her on a small dose of beta annita, Lopressor 12.5 mg b.i.d., give her Lovenox subQ. Her troponin levels are normal. I will give a Lovenox, Lopressor and will also check thyroid function testing, await input from Neurology. I suspect were are probably dealing more with a neurological issue than a cardiac issue, but we will continue monitoring closely and check echocardiogram. Abnormal d-dimer was noted and CT angio did not reveal pulmonary embolism. Based on the echo findings and telemetry monitoring, I will make further recommendations. Thank you very much for the consult. HANK
[2016-12-16] MEDS ORDERED: CYCLOBENZAPRINE 10 MG TAB PO PRN (14:52)
[2016-12-16 16:40] LABS: % Iron Saturation 34.1 % (20-50)
[2016-12-16 17:06] LABS: Glucose,Whole Blood 160 mg/dL (75-99)
[2016-12-16 17:07] LABS: Creatine Kinase 83 U/L (30-135)
[2016-12-16 17:19] LABS: Creatine Kinase MB 1.2 ng/mL (0.0-2.4); Troponin I <0.012 ng/mL (0.000-0.034)
[2016-12-16] MEDS ORDERED: CLOPIDOGREL 75 MG TAB PO SCH (17:30)
[2016-12-16 20:56] LABS: Glucose,Whole Blood 142 mg/dL (75-99)
[2016-12-16] MEDS ORDERED: traZODone HCL 50 MG TAB PO SCH (21:00)
[2016-12-16] MEDS ORDERED: INSULIN DETEMIR 100 UNIT/ML 10 ML VIAL SQ SCH (21:00)
[2016-12-16] MEDS: ENOXAPARIN 80 MG/0.8 ML SYRINGE SQ SCH (21:15)
[2016-12-16] MEDS: METOPROLOL TARTRATE 12.5 MG TAB PO SCH (21:16)
--- NOTE | 2016-12-16 21:19 | P.CNNES ---
History of Present Illness Consult date: 12/16/16 Requesting physician: Sharona Clark Reason for Consult: Syncope Chief complaint: Syncope History of Present Illness: Patient is 71-year-old female with request for consultation by neurology for evaluation possible syncope. Patient also has a known history of diabetes mellitus, fibromyalgia, hyperlipidemia, hypertension, rheumatoid arthritis and hypothyroidism. Patient was transported to the ED post-syncopal episode while at home. Patient reportedly attempted to ambulate during nighttime within the home and was walking through the kitchen when she "passed out." Patient cannot recall the event or prior events before going to bed last night. It is approximated that she may have been on the floor for approximately 2 or more hours. The patient was found, EMS was summoned and on arrival of EMS patient was alert and oriented. Patient did have increased activity level yesterday and reportedly advised EMS that she was fatigued and drowsy throughout the day. Patient has multiple personal stressors within the last several days including of the family pet and a of a close family associate. Patient is currently supine in bed resting and in no acute distress. Patient is alert and oriented 3 But does appear to be very fatigued and has to be repeatedly prompted to answer questions and maintain thought. Her is also noted to be at the bedside. Spouse states that a similar incident occurred approximately 2 years ago while the couple was vacationing in [place]. She was taken to the hospital and numerous tests are conducted but no definitive diagnosis was able to be ascertained. Spouse also stated that the patient's meal pattern for a typical day was altered and her meal was pushed into the late evening hours prior to the occurrence. states that the patient's blood glucose is intermittently well controlled. However, after reviewing laboratory analysis results, patient's hemoglobin A1c is noted at 8.1. Further pertinent laboratory testing noted glucose at 390, T3 decreased at 2.6, urinalysis noted proteinuria at 2+ glucose at 4+ as well as positive leuk esterase and casts in the urine. Carotid Doppler studies were also completed and found to have no hemodynamically significant stenosis. Patient is currently on telemetry monitoring. Review of Systems Systems not noted in HPI or negative Past Medical History Past Medical History: Chest Pain / Angina, Diabetes Mellitus, Fibromyalgia, GERD /Reflux, Hyperlipidemia, Hypertension, Osteoarthritis (OA), Renal Disease, Rheumatoid Arthritis (RA), Skin Disorder, Thyroid Disorder Additional Past Medical History / Comment(s): IDDM type II, PUD, hemorrhoids, UTIs, R lower extremity cellulitis in past, chronic sacral wound now healed-tx in C in past, iron deficiency anemia, eczema, DDD, chronic back pain, spinal stenosis C6-C7, bilateral shoulder bursitis, past L rib fracture, falls, hypothyroid, sinus problems. History of Any Multi-Drug Resistant Organisms: None Reported Past Surgical History: Adenoidectomy, Appendectomy, Bariatric Surgery, Breast Surgery, Cholecystectomy, Hysterectomy, Joint Replacement, Orthopedic Surgery, Tonsillectomy, Tubal Ligation Additional Past Surgical History / Comment(s): L knee scope and replacement, R knee 2 scopes and replaced, D&C'S, Lap Ignacio-en-Y gastric bypass [place] [address] Zambrano , total hysterectomy for fibroid tumor, tubal ligation, EGD/colonoscopy, L breast benign bx. Past Anesthesia/Blood Transfusion Reactions: Motion Sickness, Postoperative Nausea & Vomiting (PONV) Additional Past Anesthesia/Blood Transfusion Reaction / Comment(s): Pt received blood in 2012 without reaction. Smoking Status: Never smoker - Past Family History Mother Family Medical History: Coronary Artery Disease (CAD) Additional Family Medical History / Comment(s): age 90 of heart failure. Had hx of Parkinsons and Narcolepsy Father Family Medical History: Coronary Artery Disease (CAD) Additional Family Medical History / Comment(s): age 73 of massive heart attack Medications and Allergies Home Medications Medication Instructions Recorded Confirmed Type Bumetanide [BUMEX] 2 mg PO QAM PRN 10/02/14 12/16/16 History Cholecalciferol [Vitamin D3] 2,000 unit PO TID 10/02/14 12/16/16 History Clopidogrel [Plavix] 75 mg PO AC-SUPPER 10/02/14 12/16/16 History Doxercalciferol [Hectorol] 0.5 mcg PO MOTUWETHFR 10/02/14 12/16/16 History Fluticasone Propionate [Flonase 2 spray EA NOSTRIL BID 10/02/14 12/16/16 History Allergy Relief] Gabapentin [Neurontin] 100 mg PO QAM 10/02/14 12/16/16 History Insulin Detemir [Levemir] 10 unit SQ HS 10/02/14 12/16/16 History Loteprednol Etabonate [Lotemax] 1 drop BOTH EYES DAILY 10/02/14 12/16/16 History Pantoprazole Sodium 40 mg PO AC-BRKFST 10/02/14 12/16/16 History Refresh Optive Tears 1 drops BOTH EYES DAILY 10/02/14 12/16/16 History cycloSPORINE [Restasis] 1 drop BOTH EYES BID 10/02/14 12/16/16 History DULoxetine HCL [Cymbalta] 60 mg PO HS 04/16/15 12/16/16 History hydrOXYzine PAMOATE [Vistaril] 50 mg PO TID PRN 04/16/15 12/16/16 History traZODone HCL [Desyrel] 50 mg PO HS 06/06/15 12/16/16 History ALPRAZolam [Xanax] 0.5 mg PO TID PRN 12/16/16 12/16/16 History Diclofenac Sodium [Voltaren Gel] 2 gram TOPICAL DAILY PRN 12/16/16 12/16/16 History Doxercalciferol [Hectorol] 0.5 mcg PO MOTUWETHFRSA 12/16/16 12/16/16 History Gabapentin [Neurontin] 100 mg PO AC-SUPPER 12/16/16 12/16/16 History Levothyroxine Sodium [Synthroid] 137 mcg PO AC-BRKFST 12/16/16 12/16/16 History Milk Thistle 200 mg PO DAILY 12/16/16 12/16/16 History amLODIPine BESYLATE [Norvasc] 5 tab PO AC-BRKFST 12/16/16 12/16/16 History glipiZIDE [Glucotrol] 2.5 mg PO AC-BID 12/16/16 12/16/16 History oxyCODONE-APAP 7.5-325MG [Percocet 1 tab PO BID 12/16/16 12/16/16 History 7.5-325 mg] Allergies Allergy/AdvReac Type Severity Reaction Status Date / Time triamcinolone Allergy Unknown Verified 12/16/16 07:59 caffeine AdvReac Nausea & Verified 12/16/16 07:59 Vomiting & Diarrhea hydrocodone bitartrate AdvReac Itching Verified 12/16/16 07:59 [From Lorcet (hydrocodone)] Penicillins AdvReac Nausea & Verified 12/16/16 07:59 Vomiting & Diarrhea tramadol HCl [From [facility]] AdvReac Itching Verified 12/16/16 07:59 ADHESIVE TAPE Allergy Rash/Hives Uncoded 12/16/16 03:20 BEE STINGS Allergy Swelling Uncoded 12/16/16 03:20 Physical Examination - Vital Signs Vital Signs: Vital Signs Temp Pulse Pulse Resp BP BP BP 12/16/16 19:43 97.7 F 70 16 146/70 12/16/16 16:00 97.4 F L 64 18 166/80 12/16/16 12:00 74 18 12/16/16 09:59 74 153/73 12/16/16 08:55 63 18 12/16/16 08:34 97.4 F L 63 18 196/84 12/16/16 08:06 186/89 12/16/16 07:45 200/94 12/16/16 07:28 97.9 F 63 18 12/16/16 06:24 170/81 12/16/16 04:12 74 18 179/81 12/16/16 03:14 97.1 F L 83 18 188/74 Pulse Ox 12/16/16 19:43 95 12/16/16 16:00 98 12/16/16 12:00 12/16/16 09:59 12/16/16 08:55 12/16/16 08:34 99 12/16/16 08:06 12/16/16 07:45 12/16/16 07:28 97 12/16/16 06:24 94 L 12/16/16 04:12 98 12/16/16 03:14 94 L Intake and Output 12/16/16 12/16/16 12/16/16 06:59 14:59 22:59 Intake Total 776 720 Output Total 400 Balance 376 720 Intake: Oral 776 720 Output: Urine 400 Other: Voiding Method Toilet Toilet # Voids 1 Weight 158.757 kg 83.9 kg Patient Weight 12/17/16 06:59 Weight 83.9 kg Constitutional: AOx3, cooperative, but very drowsy HEENT: NC/AT, no facial asymmetry is seen. Throat: Supple, no masses Respiratory: No increased work of breathing Cardiac: Regular rate and Rhythm GI: non tender, non distended Musculoskeletal: Sensitizer strengths are equal bilaterally 4/5, Lower extremity strengths are equal bilaterally at 4/5. Neurological: CN II-XII in tact, patient was AOx3, speech and language are normal but slow, no unilateralizing weakness, no seizure activity note on physical exam. Sensation was normal. Upper [place] nystagmus exam, patient was unable to track laterally or vertically at all. Visual guo do appear to be intact however. Integementary: no rash, no erythema Psychiatric: flat, appropriate Results - Laboratory Findings CBC and BMP: 12/16/16 03:30 12/16/16 03:30 Abnormal Lab Findings: Abnormal Labs 12/16/16 12/16/16 12/16/16 03:30 03:30 03:30 D-Dimer 0.99 H BUN 30 H Glucose 390 H POC Glucose (mg/dL) Hemoglobin A1c 8.1 H Free T3 pg/mL Urine Protein Urine Glucose (UA) Ur Leukocyte Esterase Urine Bacteria Hyaline Casts 12/16/16 12/16/16 12/16/16 03:30 03:50 17:04 D-Dimer BUN Glucose POC Glucose (mg/dL) 160 H Hemoglobin A1c Free T3 pg/mL 2.6 L Urine Protein 2+ H Urine Glucose (UA) 4+ H Ur Leukocyte Esterase Small H Urine Bacteria Occasional H Hyaline Casts 3 H Assessment and Plan (1) Fall Status: Acute (2) Syncope Status: Acute (3) Generalized weakness Status: Acute (4) Hypothyroidism Status: Acute (5) UTI (urinary tract infection) Status: Acute (6) Diabetes type 2, uncontrolled Status: Acute Plan: Patient does have a history of similar occurrence actually 2 years ago. Patient also has uncontrolled type 2 diabetes with noted A1c of 8.1 and a glucose on arrival at 390. Positive urine glucose at 4+. Patient also has hypothyroidism and is managed with Synthroid. Patient also has appears to be an infectious process based on the positive leuk esterase in the urine. Patient does have a history of fibromyalgia which is being managed With cymbalta and gabapentin. It does appear that the patient's current status may be multifactorial in etiology. Patient does have type 2 diabetes which does appear to be relatively uncontrolled. However, on physical exam, the patient was unable to visually track laterally or vertically. Given the predominance to female gender and the patient's ocular component, myasthenia gravis must also be ruled out. Ordered: EEG myasthenia gravis panel MRI of the Brain TSH iron Level CK Telemetry monitoring Orthostatics every shift Neuro checks every shift Status: Neurology will continue to follow him provide updates as needed or warranted. I discussed the patient's pertinent medical information with Dr. Seals. He agrees with the plan of care as implemented.
[2016-12-17 05:55] LABS: Basophils % (A) 1 %; CH 29.9; CHCM 32.2; Eosinophils # (A) 0.2 k/uL (0-0.7); Eosinophils % (A) 3 %; HCT 38.2 % (34.0-46.0); HDW 2.21; HGB 12.6 gm/dL (11.4-16.0); Luc # (Auto) 0.15; Luc % (Auto) 2; Lymphocytes # (A) 1.8 k/uL (1.0-4.8); Lymphocytes % (A) 22 %; MCH 30.7 pg (25.0-35.0); MCHC 32.9 g/dL (31.0-37.0); MCV 93.2 fL (80.0-100.0); Mean Platelet Volume 7.2; Monocytes # (A) 0.5 k/uL (0-1.0); Monocytes % (A) 6 %; Neutrophils # (A) 5.4 k/uL (1.3-7.7); Neutrophils % (A) 67 %; RBC 4.09 m/uL (3.80-5.40); RDW 13.6 % (11.5-15.5); WBC 8.1 k/uL (3.8-10.6); WBC (Perox) 8.13
[2016-12-17 06:33] LABS: Glucose,Whole Blood 79 mg/dL (75-99)
[2016-12-17 06:49] LABS: ALT 63 U/L (9-52); AST 155 U/L (14-36); Alkaline Phosphatase 140 U/L (38-126); Anion Gap 7 mmol/L; Blood Urea Nitrogen 22 mg/dL (7-17); Calcium 9.2 mg/dL (8.4-10.2); Carbon Dioxide 29 mmol/L (22-30); Chloride 105 mmol/L (98-107); Cholesterol 197 mg/dL (<200); Glucose 77 mg/dL (74-99); HDL Cholesterol 75 mg/dL (40-60); Non-African American GFR(MDRD) >60 (>60 ml/min/1.73 sqM); Potassium 3.8 mmol/L (3.5-5.1); Sodium 141 mmol/L (137-145); Total Bilirubin 0.4 mg/dL (0.2-1.3); Triglycerides 111 mg/dL (<150)
[2016-12-17 07:27] VITALS: RESP 16
[2016-12-17] MEDS ORDERED: LEVOTHYROXINE 125 MCG TAB PO SCH (07:30)
[2016-12-17] MEDS ORDERED: ASPIRIN 325 MG TAB PO SCH (09:00)
[2016-12-17] MEDS ORDERED: amLODIPine 5 MG TAB PO SCH (09:00)
[2016-12-17] MEDS: INSULIN LISPRO (humaLOG) 300 UNIT/3 ML VIAL SQ SCH ×2 (09:46→12:35)
[2016-12-17] MEDS: LEVOTHYROXINE 137 MCG TAB PO SCH (09:54)
[2016-12-17] MEDS: BUMETANIDE 1 MG TAB PO SCH ×2 (09:54→16:49)
[2016-12-17] MEDS: CHOLECALCIFEROL 1,000 UNIT TAB PO SCH (09:54)
[2016-12-17] MEDS: METOPROLOL TARTRATE 12.5 MG TAB PO SCH (09:54)
[2016-12-17] MEDS: ENOXAPARIN 80 MG/0.8 ML SYRINGE SQ SCH (09:55)
[2016-12-17] MEDS: GABAPENTIN 100 MG CAP PO SCH (09:55)
[2016-12-17] MEDS: PANTOPRAZOLE 40 MG TABLET PO SCH (09:55)
[2016-12-17] MEDS: FLUTICASONE 50MCG/SPRAY NASAL 16GM EA NOSTRIL SCH (09:56)
[2016-12-17] MEDS: ARTIFICIAL TEARS-HYPROMELLOSE DROPS 15 ML BTL BOTH EYES SCH (09:56)
[2016-12-17] MEDS: HYDROCORTISONE SUPPOSITORY 25 MG SUPP RECTAL SCH (09:57)
--- NOTE | 2016-12-17 11:51 | ECHOF ---
Referral Reason:syncope MEASUREMENTS -------- HEIGHT: 149.9 cm WEIGHT: 83.5 kg BP: RVIDd: 2.1 cm (< 3.3) IVSd: 1.0 cm (0.6 - 1.1) LVIDd: 5.3 cm (3.9 - 5.3) LVPWd: 1.0 cm (0.6 - 1.1) IVSs: 1.6 cm LVIDs: 3.7 cm LVPWs: 1.6 cm LAESV Index (A-L): 33.47 ml/m Ao Diam: 3.5 cm (2.0 - 3.7) AV Cusp: 1.9 cm (1.5 - 2.6) LA Diam: 3.4 cm (2.7 - 3.8) MV EXCURSION: 13.666 mm (> 18.000) MV EF SLOPE: 76 mm/s (70 - 150) EPSS: 1.6 cm MV E Ruben: 0.98 m/s MV DecT: 277 ms MV A Ruben: 0.66 m/s MV E/A Ratio: 1.47 RAP: 5.00 mmHg RVSP: 41.00 mmHg FINDINGS -------- Sinus rhythm. This was a technically adequate study. The left ventricular size is normal. Left ventricular wall thickness is normal. Overall left ventricular systolic function is low-normal with, an EF between 50 - 55 %. The right ventricle is normal in size and function. LA is midly dilated 29-33ml/m2. The right atrium is normal in size. There is mild aortic valve sclerosis. There is no evidence of aortic regurgitation. Mild mitral annular calcification present. Mild mitral regurgitation is present. Mild tricuspid regurgitation present. There is mild pulmonary hypertension. The right ventricular systolic pressure, as measured by Doppler, is 41.00mmHg. There is no pulmonic regurgitation present. The aortic root size is normal. Normal inferior vena cava with normal inspiratory collapse consistent with estimated right atrial pressure of 5 mmHg. There is no pericardial effusion. CONCLUSIONS -------- 1. Sinus rhythm. 2. There is no pericardial effusion. 3. This was a technically adequate study. 4. Overall left ventricular systolic function is low-normal with, an EF between 50 - 55 %. 5. LA is midly dilated 29-33ml/m2. 6. There is mild aortic valve sclerosis. 7. Mild mitral annular calcification present. 8. Mild tricuspid regurgitation present. 9. There is mild pulmonary hypertension. 10. There is no pulmonic regurgitation present. [employer] INTERFERENCE TROUBLE SHOOTER: Neal Hankins RDCS
[2016-12-17 11:58] LABS: Glucose,Whole Blood 231 mg/dL (75-99)
[2016-12-17] MEDS: MULTIVITAMINS, THERA 1 EACH TAB PO SCH (12:35)
--- NOTE | 2016-12-17 13:44 | PN ---
This is a 71-year-old lady who came in with episode of having been found unresponsive. No arrhythmia noted here on the telemetry unit. Echocardiogram will be performed today. She is having a neuro workup. Vital signs are stable. s1, S2 heard normally. Lungs are clear. Abdomen and lower extremity exam is unchanged. I do not believe we are dealing with any active cardiac problems. I agree with neuro workup and I will see her as needed or if any arrhythmia is noted. She had a CT performed which was negative for pulmonary embolism because of elevated d-dimer. MTDD
--- NOTE | 2016-12-17 14:52 | MR ---
EXAMINATION TYPE: MR brain wo con DATE OF EXAM: 12/17/2016 COMPARISON: NONE HISTORY: Dizziness, AMS T1-weighted sagittal, T2, FLAIR, and diffusion axial, and T2 coronal coronal views of the brain are s ubmitted. There is no evidence of acute ischemia. Mild to moderate generalized degenerative cyst change seen. There is diffuse and focal areas of abnormal signal within the white matter bilaterally. Confluent ar eas of signal the periventricular white matter seen. No callosal lesions. At least 30 focal areas of abnormal signal are noted. Craniocervical junction maintained. Sella turcica has a normal appearance. Abnormal signal the basal ganglia bilaterally may represent a prominent Virchow-Pollo space or tiny r emote lacunar infarction. No cerebellopontine angle mass. IMPRESSION: 1. No acute intracranial process. 2. Degenerative and nonspecific white matter changes. Remote microvascular ischemia is the most likel y etiology. Demyelinating process and other etiologies not entirely excluded.
--- NOTE | 2016-12-17 15:20 | P.PN ---
Progress Note - Text Patient was on at available to be examined today. Tried to evaluate patient on 2 different occasions. Once she was in the restroom. Second time she was down for her MRI.
[2016-12-17 15:49] VITALS: BP 159/81; PULSE 63; TEMP 98
--- NOTE | 2016-12-17 16:23 | P.DS ---
Providers Date of admission: 12/16/16 06:32 Expected date of discharge: 12/17/16 Attending physician: Taina Vergara Consults: 12/16/16 06:32 Consult Physician Routine Consulting Provider: Brian Catalan Consult Reason/Comments: syncope Do you want consulting provider notified?: Yes 12/16/16 10:44 Consult Physician Routine Consulting Provider: Allen Seals Consult Reason/Comments: syncope Do you want consulting provider notified?: Yes Primary care physician: Reji Bartholomew [facility] Course: Discharge diagnosis 1. Syncopal episode: Workup in progress. EKG and telemetry is showing sinus rhythm. Check echo and carotid ultrasound. Computed tomography scan of the brain showed no acute Changes. It did show probable mild microangiopathy. CTA of the chest was negative for PE did show scattered fibrosis and atelectatic changes. Troponins are negative 3 sets. Cardiology and neurology have been consulted. Patient admits to having a stressful day she had to put her dog down as well as attend a 2. Accelerated hypertension with hypertensive emergency on admission on patient was restarted on her Norvasc and Bumex. Cardiology has evaluated patient and has decreased the Norvasc to 5 mg daily and added metoprolol 12.5 mg twice a day. Blood pressures are showing improvement. Last blood pressure was 153/73. Continue to monitor. 3. Diabetes mellitus type 2: Patient did have elevated blood sugar on admission. She received an extra 8 units of Humalog. Continue with her Levemir 10 units at sliding scale coverage resume her glipizide. Check hemoglobin A1c. 4. Hypothyroidism resume her home Synthroid 137 g daily. 5. History of rheumatoid arthritis 6. History of fibromyalgia 7. Hyperlipidemia 8. UTI: Urine culture growing gram-negative bacilli. She'll be sent home with antibiotics Hospital course This is a 71-year-old female with a known history of diabetes mellitus, fibromyalgia, hyperlipidemia, hypertension, rheumatoid arthritis and hypothyroidism. Patient was brought into the emergency room after syncopal episode. Patient reports she got up around midnight to go use the bathroom to urinate. She was walking across the kitchen to get to the bathroom when she passed out. Patient doesn't recall the event. She may have been on the floor for about 2 hours. was at bedside. It appears that their daughter is on that found the patient about 2:00 in the morning. And ambulance was called. When the ambulance arrived. Patient was awake and alert. Patient reports feeling very fatigued and drowsy throughout the day. She had a rough day. She had to put her dog down as well as attend her son's [id number]'s . Patient has been admitted to the observation unit. Initially her blood pressures were elevated in the emergency room. She had a blood pressure as high as 200/94. She was restarted on her home medications and blood pressures are 153/73. Patient was evaluated by cardiology they have decreased the Norvasc to 5 mg daily and started metoprolol 12.5 mg twice a day. Carotid and echo have been ordered a computed tomography scan the brain showed probable mild microangiopathy. And CTA of the chest was negative for PE did revealed scattered fibrosis and atelectatic changes. EKG showed sinus rhythm with PACs. Patient's blood sugar was 390. She received 8 units of NovoLog in the emergency room. Blood sugars have shown improvement. Patient reports that she had been eating and drinking yesterday. But she did eat a later dinner due to being at the home and falling asleep earlier in the day. Patient denies any chest pain or shortness of breath. Denies any nausea or vomiting. Denies any bowel movement changes or urinary symptoms. Denies any cough fever chills or sweats. Patient reports that she didn't trip or fall. She does not know why she fell to the floor except that she had been stressed earlier in the day. Nursing staff did mention that patient was having some episodes of forgetfulness. They gave the example of patient ordered lunch and then later asked "what did I order for lunch." Patient was seen by cardiology and neurology. Cardiology is cleared for discharge. Neurology ordered an MRI of the brain which showed no acute intracranial process. Did reveal degenerative and nonspecific white matter changes. Remote microvascular ischemia is most likely etiology. Demyelinating process and other etiologies are not entirely excluded. Echo shows an EF of 50-55% and mild pulmonary hypertension. EEG results are pending. Carotid Doppler was negative. Patient's symptoms have improved 1. Back on a lot of her pain medications and anxiety medications. Her Xanax was decreased to 0.25 mg twice a day as needed. Change Flexeril to as needed. Percocets were made to as needed twice a day and Vistaril was changed to as needed. Patient is more awake and alert. She is eager for discharge. Patient will follow-up with her neurologist, Dr. Molina in 1 week. Patient also completed treatment for her UTI. She has elevated LFTs at discharge. AST 155 ALT 63 and alk phos 140 recommend repeating LFTs in 1 week. Patient has no abdominal pain and history of cholecystectomy. Patient is medical stable for discharge. Recommend checking LFTs in 1 week Patient Condition at Discharge: Stable Plan - Discharge Summary New Discharge Prescriptions: New ALPRAZolam [Xanax] 0.25 mg PO BID PRN #20 tab PRN Reason: Anxiety Cyclobenzaprine [Flexeril] 10 mg PO BID PRN tab PRN Reason: Muscle Spasm Dapagliflozin Propanediol [Farxiga] 5 mg PO DAILY Ibuprofen [Motrin] 600 mg PO Q6HR PRN tab PRN Reason: Pain Metoprolol Tartrate [Lopressor] 12.5 mg PO BID #60 tab Multivitamins, Thera [Multivitamin (formulary)] 1 each PO DAILY@1200 tab Continue Insulin Detemir [Levemir] 10 unit SQ HS Clopidogrel [Plavix] 75 mg PO AC-SUPPER Bumetanide [BUMEX] 2 mg PO QAM PRN PRN Reason: FLUID RETENTION cycloSPORINE [Restasis] 1 drop BOTH EYES BID Gabapentin [Neurontin] 100 mg PO QAM Doxercalciferol [Hectorol] 0.5 mcg PO MOTUWETHFR Cholecalciferol [Vitamin D3] 2,000 unit PO TID Fluticasone Propionate [Flonase Allergy Relief] 2 spray EA NOSTRIL BID Loteprednol Etabonate [Lotemax] 1 drop BOTH EYES DAILY Pantoprazole Sodium 40 mg PO AC-BRKFST Refresh Optive Tears 1 drops BOTH EYES DAILY DULoxetine HCL [Cymbalta] 60 mg PO HS traZODone HCL [Desyrel] 50 mg PO HS amLODIPine BESYLATE [Norvasc] 5 tab PO AC-BRKFST Gabapentin [Neurontin] 100 mg PO AC-SUPPER Milk Thistle 200 mg PO DAILY Doxercalciferol [Hectorol] 0.5 mcg PO MOTUWETHFRSA Levothyroxine Sodium [Synthroid] 137 mcg PO AC-BRKFST glipiZIDE [Glucotrol] 2.5 mg PO AC-BID Diclofenac Sodium [Voltaren Gel] 2 gram TOPICAL DAILY PRN PRN Reason: Pain Changed hydrOXYzine PAMOATE [Vistaril] 50 mg PO BID PRN #0 PRN Reason: Pain oxyCODONE-APAP 7.5-325MG [Percocet 7.5-325 mg] 1 tab PO BID PRN #0 PRN Reason: Pain Discontinued ALPRAZolam [Xanax] 0.5 mg PO TID PRN PRN Reason: Anxiety Discharge Medication List Bumetanide [BUMEX] 2 mg PO QAM PRN 10/02/14 [History] Cholecalciferol [Vitamin D3] 2,000 unit PO TID 10/02/14 [History] Clopidogrel [Plavix] 75 mg PO AC-SUPPER 10/02/14 [History] Doxercalciferol [Hectorol] 0.5 mcg PO MOTUWETHFR 10/02/14 [History] Fluticasone Propionate [Flonase Allergy Relief] 2 spray EA NOSTRIL BID 10/02/14 [History] Gabapentin [Neurontin] 100 mg PO QAM 10/02/14 [History] Insulin Detemir [Levemir] 10 unit SQ HS 10/02/14 [History] Loteprednol Etabonate [Lotemax] 1 drop BOTH EYES DAILY 10/02/14 [History] Pantoprazole Sodium 40 mg PO AC-BRKFST 10/02/14 [History] Refresh Optive Tears 1 drops BOTH EYES DAILY 10/02/14 [History] cycloSPORINE [Restasis] 1 drop BOTH EYES BID 10/02/14 [History] DULoxetine HCL [Cymbalta] 60 mg PO HS 04/16/15 [History] traZODone HCL [Desyrel] 50 mg PO HS 06/06/15 [History] Diclofenac Sodium [Voltaren Gel] 2 gram TOPICAL DAILY PRN 12/16/16 [History] Doxercalciferol [Hectorol] 0.5 mcg PO MOTUWETHFRSA 12/16/16 [History] Gabapentin [Neurontin] 100 mg PO AC-SUPPER 12/16/16 [History] Levothyroxine Sodium [Synthroid] 137 mcg PO AC-BRKFST 12/16/16 [History] Milk Thistle 200 mg PO DAILY 12/16/16 [History] amLODIPine BESYLATE [Norvasc] 5 tab PO AC-BRKFST 12/16/16 [History] glipiZIDE [Glucotrol] 2.5 mg PO AC-BID 12/16/16 [History] ALPRAZolam [Xanax] 0.25 mg PO BID PRN #20 tab 12/17/16 [Rx] Cyclobenzaprine [Flexeril] 10 mg PO BID PRN tab 12/17/16 [Rx] Dapagliflozin Propanediol [Farxiga] 5 mg PO DAILY 12/17/16 [Rx] Ibuprofen [Motrin] 600 mg PO Q6HR PRN tab 12/17/16 [Rx] Metoprolol Tartrate [Lopressor] 12.5 mg PO BID #60 tab 12/17/16 [Rx] Multivitamins, Thera [Multivitamin (formulary)] 1 each PO DAILY@1200 tab [Rx] hydrOXYzine PAMOATE [Vistaril] 50 mg PO BID PRN #0 12/17/16 [Rx] oxyCODONE-APAP 7.5-325MG [Percocet 7.5-325 mg] 1 tab PO BID PRN #0 12/17/16 [Rx ] Follow up Appointment(s)/Referral(s): Taina Vergara MD [STAFF PHYSICIAN] - 1 Week Khang Molina MD [STAFF PHYSICIAN] - 1 Week Activity/Diet/Wound Care/Special Instructions: Diet: diabetic, cardiac Activity: as tolerated Discharge Disposition: HOME SELF-CARE
== END 2016-12-17 16:56 | disposition home or self-care (01) ==
LOC: EC 02:56 → 3OBS 06:32
PROVIDERS: ADMIT Internal Medicine; ATTEND Internal Medicine
DX: R55 Syncope and collapse (principal); M19.90 Unspecified osteoarthritis, unspecified site; I10 Essential (primary) hypertension; E78.5 Hyperlipidemia, unspecified; F41.9 Anxiety disorder, unspecified; F32.9 Major depressive disorder, single episode, unspecified; M79.7 Fibromyalgia; M06.9 Rheumatoid arthritis, unspecified; I16.1 Hypertensive emergency; E03.9 Hypothyroidism, unspecified; E11.65 Type 2 diabetes mellitus with hyperglycemia; K64.9 Unspecified hemorrhoids; N39.0 Urinary tract infection, site not specified; K21.9 Gastro-esophageal reflux disease without esophagitis; Z98.84 Bariatric surgery status; I27.2 Other secondary pulmonary hypertension; Z87.11 Personal history of peptic ulcer disease; Z91.02 Food additives allergy status; Z79.899 Other long term (current) drug therapy; Z79.4 Long term (current) use of insulin; Z79.02 Long term (current) use of antithrombotics/antiplatelets; Z79.84 Long term (current) use of oral hypoglycemic drugs; Z79.891 Long term (current) use of opiate analgesic; Z91.030 Bee allergy status; Z88.5 Allergy status to narcotic agent; Z88.0 Allergy status to penicillin; Z88.8 Allergy status to other drugs, medicaments and biological substances; Z91.048 Other nonmedicinal substance allergy status; Z82.49 Family history of ischemic heart disease and other diseases of the circulatory system; Z91.81 History of falling
CPT/HCPCS: 96361 ×3; 96360 ×2; 99285 ×2; 96372 ×2; 36415; 94760; 95816; 93005; 93306; 85379; 84439; 83519; 84481; 80061; 80053 ×2; 84443; 83036; 82550; 82553; 83540; 83550; 83735; 84484; 85025 ×2; 85610; 85730; 81001; 83516; 87086; 87077; 87186; 71010; 93880; 72125; 70450; 71275; 70551; G0378 ×2; Q9967; J1650 ×2

== ENCOUNTER 2017-04-13 01:43 | Observation (INO) | payer MEDICARE, BC ==
[2017-04-13 02:01] LABS: Glucose,Whole Blood 242 mg/dL (75-99)
[2017-04-13] MEDS ORDERED: SODIUM CHLORIDE 0.9% 500 ML IV STA (02:01)
[2017-04-13] MEDS ORDERED: cloNIDine HCL 0.1 MG TAB PO STA (02:03)
--- NOTE | 2017-04-13 02:05 | ED ---
Weakness HPI - General Chief complaint: Weakness Stated complaint: Weakness Time Seen by Provider: 04/13/17 01:54 Source: patient, EMS, RN notes reviewed Mode of arrival: EMS Limitations: no limitations - History of Present Illness Initial comments: This is a 71-year-old female with multiple comorbidities who presents emergency department via EMS chief complaint weakness. Patient states that she normally has weakness per family states that she seems to be more weak than usual in the last hour. Patient does admit that she feels very tired and run down. She has no other specific complaints. She denies headache, dizziness, chest pain, shortness breath, blurred vision, nausea, vomiting, diarrhea constipation. She states she does have a history of high blood pressure and did take her Norvasc in the morning. Patient states that she's had no recent cold-like symptoms no sick contacts. Patient denies history of CVA/TIA. Patient states that she normally can ambulate with no difficulty states that she's had no change in this. - Related Data Home Medications Medication Instructions Recorded Confirmed Bumetanide [BUMEX] 1 mg PO QAM PRN 10/02/14 04/13/17 Cholecalciferol [Vitamin D3] 2,000 unit PO TID 10/02/14 12/16/16 Clopidogrel [Plavix] 75 mg PO AC-SUPPER 10/02/14 12/16/16 Fluticasone Propionate [Flonase 2 spray EA NOSTRIL BID 10/02/14 12/16/16 Allergy Relief] Gabapentin [Neurontin] 100 mg PO QAM 10/02/14 12/16/16 Insulin Detemir [Levemir] 10 unit SQ HS 10/02/14 12/16/16 Pantoprazole Sodium 40 mg PO AC-BRKFST 10/02/14 12/16/16 Refresh Optive Tears 1 drops BOTH EYES DAILY 10/02/14 12/16/16 cycloSPORINE [Restasis] 1 drop BOTH EYES BID 10/02/14 12/16/16 DULoxetine HCL [Cymbalta] 60 mg PO HS 04/16/15 12/16/16 traZODone HCL [Desyrel] 50 mg PO HS 06/06/15 12/16/16 Diclofenac Sodium [Voltaren Gel] 2 gram TOPICAL DAILY PRN 12/16/16 12/16/16 Doxercalciferol [Hectorol] 0.5 mcg PO MOTUWETHFRSA 12/16/16 12/16/16 Gabapentin [Neurontin] 100 mg PO AC-SUPPER 12/16/16 12/16/16 Levothyroxine Sodium [Synthroid] 137 mcg PO AC-BRKFST 12/16/16 12/16/16 Milk Thistle 200 mg PO DAILY 12/16/16 12/16/16 amLODIPine BESYLATE [Norvasc] 5 tab PO AC-BRKFST 12/16/16 12/16/16 glipiZIDE [Glucotrol] 2.5 mg PO AC-BID 12/16/16 12/16/16 hydrOXYzine PAMOATE [Vistaril] 50 mg PO TID 04/13/17 04/13/17 Previous Rx's Medication Instructions Recorded ALPRAZolam [Xanax] 0.25 mg PO BID PRN #20 tab 12/17/16 Cyclobenzaprine [Flexeril] 10 mg PO BID PRN tab 12/17/16 Ibuprofen [Motrin] 600 mg PO Q6HR PRN tab 12/17/16 Metoprolol Tartrate [Lopressor] 12.5 mg PO BID #60 tab 12/17/16 Multivitamins, Thera [Multivitamin 1 each PO DAILY@1200 tab 12/17/16 (formulary)] oxyCODONE-APAP 7.5-325MG [Percocet 1 tab PO BID PRN #0 12/17/16 7.5-325 mg] Allergies Allergy/AdvReac Type Severity Reaction Status Date / Time triamcinolone Allergy Unknown Verified 04/13/17 01:44 caffeine AdvReac Nausea & Verified 04/13/17 01:44 Vomiting & Diarrhea hydrocodone bitartrate AdvReac Itching Verified 04/13/17 01:44 [From Lorcet (hydrocodone)] Penicillins AdvReac Nausea & Verified 04/13/17 01:44 Vomiting & Diarrhea tramadol HCl [From Ultram] AdvReac Itching Verified 04/13/17 01:44 ADHESIVE TAPE Allergy Rash/Hives Uncoded 12/16/16 03:20 BEE STINGS Allergy Swelling Uncoded 12/16/16 03:20 Review of Systems ROS Statement: Those systems with pertinent positive or pertinent negative responses have been documented in the HPI. ROS Other: All systems not noted in ROS Statement are negative. Past Medical History Past Medical History: Chest Pain / Angina, Diabetes Mellitus, Fibromyalgia, GERD /Reflux, Hyperlipidemia, Hypertension, Osteoarthritis (OA), Renal Disease, Rheumatoid Arthritis (RA), Thyroid Disorder Additional Past Medical History / Comment(s): BURSITIS, falls, chronic sacral wound(wcc) History of Any Multi-Drug Resistant Organisms: None Reported Past Surgical History: Adenoidectomy, Cholecystectomy, Hysterectomy, Orthopedic Surgery, Tonsillectomy Additional Past Surgical History / Comment(s): 3 RIGHT KNEE SURGERIES AND 2 LEFT TOTAL KNEE REPLACEMENTS SURGERIES. D&C'S. Lap Ignacio-en-Y gastric [place] [address] Zambrano , total hysterectomy for fibroid tumor, tubal ligation Past Anesthesia/Blood Transfusion Reactions: Motion Sickness Additional Past Anesthesia/Blood Transfusion Reaction / Comment(s): Pt received blood in 2012 without reaction. Past Psychological History: Anxiety, Depression Smoking Status: Never smoker Past Alcohol Use History: None Reported Past Drug Use History: None Reported - Past Family History Mother Family Medical History: Coronary Artery Disease (CAD) Additional Family Medical History / Comment(s): age 90 of heart failure. Had hx of Parkinsons and Narcolepsy Father Family Medical History: Coronary Artery Disease (CAD) Additional Family Medical History / Comment(s): age 73 of massive heart attack General Exam Limitations: no limitations General appearance: alert, in no apparent distress Head exam: Present: atraumatic, normocephalic, normal inspection Eye exam: Present: normal appearance, PERRL, EOMI. Absent: scleral icterus, conjunctival injection, periorbital swelling Pupils: Present: normal accommodation ENT exam: Present: normal exam, normal oropharynx, mucous membranes moist Neck exam: Present: normal inspection, full ROM. Absent: tenderness, meningismus, lymphadenopathy Respiratory exam: Present: normal lung sounds bilaterally. Absent: respiratory distress, wheezes, rales, rhonchi, stridor Cardiovascular Exam: Present: regular rate, normal rhythm, normal heart sounds. Absent: systolic murmur, diastolic murmur, rubs, gallop, clicks GI/Abdominal exam: Present: soft, normal bowel sounds. Absent: distended, tenderness, guarding, rebound, rigid Neurological exam: Present: alert, oriented X3, CN II-XII intact, reflexes normal, other (Finger to nose intact bilaterally without shooting). Absent: motor sensory deficit Skin exam: Present: warm, dry, intact, normal color. Absent: rash Course Vital Signs 04/13/17 04/13/17 01:44 03:01 Temperature 97.2 F L Pulse Rate 66 56 L Respiratory 18 18 Rate Blood Pressure 203/96 160/76 O2 Sat by Pulse 98 100 Oximetry EKG Findings - EKG Comments: EKG Findings:: EKG performed at 1:48 sinus bradycardia with sinus arrhythmia, left axis deviation rate of 58 MA 172 QRS 116 QT/QTC 396/388 Medical Decision Making - Medical Decision Making 71-year-old female presented emergency from for weakness. Patient's laboratory does reveal some mild hyperglycemia CT no acute changes x-ray does show some mild pulmonary congestion. BNP at 339. Patient states that this is more of a sudden onset of weakness patient has no focal deficits on exam and H is 0 GCS 15. room states that she just seems to be more weak than usual but no specific complaints. Patient be admitted for observation. - Lab Data Result diagrams: 04/13/17 01:50 04/13/17 01:50 Lab Results 04/13/17 04/13/17 04/13/17 Range/Units 01:50 01:50 01:50 WBC 10.6 (3.8-10.6) k/uL RBC 4.36 (3.80-5.40) m/uL Hgb 13.0 (11.4-16.0) gm/dL Hct 43.0 (34.0-46.0) % MCV 98.5 (80.0-100.0) fL MCH 29.8 (25.0-35.0) pg MCHC 30.3 L (31.0-37.0) g/dL RDW 13.2 (11.5-15.5) % Plt Count 312 (150-450) k/uL Neutrophils % 72 % Lymphocytes % 17 % Monocytes % 6 % Eosinophils % 3 % Basophils % 1 % Neutrophils # 7.6 (1.3-7.7) k/uL Lymphocytes # 1.8 (1.0-4.8) k/uL Monocytes # 0.6 (0-1.0) k/uL Eosinophils # 0.3 (0-0.7) k/uL Basophils # 0.1 (0-0.2) k/uL PT (9.0-12.0) sec INR (<1.2) APTT (22.0-30.0) sec Sodium 137 (137-145) mmol/L Potassium 4.5 (3.5-5.1) mmol/L Chloride 103 (98-107) mmol/L Carbon Dioxide 27 (22-30) mmol/L Anion Gap 7 mmol/L BUN 24 H (7-17) mg/dL Creatinine 0.80 (0.52-1.04) mg/dL Est GFR (MDRD) Af Amer >60 (>60 ml/min/1.73 sqM) Est GFR (MDRD) Non-Af >60 (>60 ml/min/1.73 sqM) Glucose 265 H (74-99) mg/dL POC Glucose (mg/dL) (75-99) mg/dL POC Glu Electronic Induction Hardener ID Calcium 10.0 (8.4-10.2) mg/dL Magnesium 1.8 (1.6-2.3) mg/dL Total Bilirubin 0.2 (0.2-1.3) mg/dL AST 37 H (14-36) U/L ALT 48 (9-52) U/L Alkaline Phosphatase 117 (38-126) U/L Total Creatine Kinase 46 (30-135) U/L CK-MB (CK-2) 0.8 (0.0-2.4) ng/mL CK-MB (CK-2) Rel Index 1.7 Troponin I <0.012 (0.000-0.034) ng/mL NT-Pro-B Natriuret Pep pg/mL Total Protein 7.2 (6.3-8.2) g/dL Albumin 4.1 (3.5-5.0) g/dL Urine Color Urine Appearance (Clear) Urine pH (5.0-8.0) Ur Specific [place] (1.001-1.035) Urine Protein (Negative) Urine Glucose (UA) (Negative) Urine Ketones (Negative) Urine Blood (Negative) Urine Nitrite (Negative) Urine Bilirubin (Negative) Urine Urobilinogen (<2.0) mg/dL Ur Leukocyte Esterase (Negative) Urine RBC (0-5) /hpf Urine WBC (0-5) /hpf Ur Squamous Epith Cells (0-4) /hpf Hyaline Casts (0-2) /lpf Urine Mucus (None) /hpf 04/13/17 04/13/17 04/13/17 Range/Units 01:50 01:50 01:55 WBC (3.8-10.6) k/uL RBC (3.80-5.40) m/uL Hgb (11.4-16.0) gm/dL Hct (34.0-46.0) % MCV (80.0-100.0) fL MCH (25.0-35.0) pg MCHC (31.0-37.0) g/dL RDW (11.5-15.5) % Plt Count (150-450) k/uL Neutrophils % % Lymphocytes % % Monocytes % % Eosinophils % % Basophils % % Neutrophils # (1.3-7.7) k/uL Lymphocytes # (1.0-4.8) k/uL Monocytes # (0-1.0) k/uL Eosinophils # (0-0.7) k/uL Basophils # (0-0.2) k/uL PT 9.8 (9.0-12.0) sec INR 1.0 (<1.2) APTT 22.5 (22.0-30.0) sec Sodium (137-145) mmol/L Potassium (3.5-5.1) mmol/L Chloride (98-107) mmol/L Carbon Dioxide (22-30) mmol/L Anion Gap mmol/L BUN (7-17) mg/dL Creatinine (0.52-1.04) mg/dL Est GFR (MDRD) Af Amer (>60 ml/min/1.73 sqM) Est GFR (MDRD) Non-Af (>60 ml/min/1.73 sqM) Glucose (74-99) mg/dL POC Glucose (mg/dL) 242 H (75-99) mg/dL POC Glu Electronic Induction Hardener ID Maicol Shipman Calcium (8.4-10.2) mg/dL Magnesium (1.6-2.3) mg/dL Total Bilirubin (0.2-1.3) mg/dL AST (14-36) U/L ALT (9-52) U/L Alkaline Phosphatase (38-126) U/L Total Creatine Kinase (30-135) U/L CK-MB (CK-2) (0.0-2.4) ng/mL CK-MB (CK-2) Rel Index Troponin I (0.000-0.034) ng/mL NT-Pro-B Natriuret Pep 339 pg/mL Total Protein (6.3-8.2) g/dL Albumin (3.5-5.0) g/dL Urine Color Urine Appearance (Clear) Urine pH (5.0-8.0) Ur Specific [place] (1.001-1.035) Urine Protein (Negative) Urine Glucose (UA) (Negative) Urine Ketones (Negative) Urine Blood (Negative) Urine Nitrite (Negative) Urine Bilirubin (Negative) Urine Urobilinogen (<2.0) mg/dL Ur Leukocyte Esterase (Negative) Urine RBC (0-5) /hpf Urine WBC (0-5) /hpf Ur Squamous Epith Cells (0-4) /hpf Hyaline Casts (0-2) /lpf Urine Mucus (None) /hpf 04/13/17 Range/Units 02:30 WBC (3.8-10.6) k/uL RBC (3.80-5.40) m/uL Hgb (11.4-16.0) gm/dL Hct (34.0-46.0) % MCV (80.0-100.0) fL MCH (25.0-35.0) pg MCHC (31.0-37.0) g/dL RDW (11.5-15.5) % Plt Count (150-450) k/uL Neutrophils % % Lymphocytes % % Monocytes % % Eosinophils % % Basophils % % Neutrophils # (1.3-7.7) k/uL Lymphocytes # (1.0-4.8) k/uL Monocytes # (0-1.0) k/uL Eosinophils # (0-0.7) k/uL Basophils # (0-0.2) k/uL PT (9.0-12.0) sec INR (<1.2) APTT (22.0-30.0) sec Sodium (137-145) mmol/L Potassium (3.5-5.1) mmol/L Chloride (98-107) mmol/L Carbon Dioxide (22-30) mmol/L Anion Gap mmol/L BUN (7-17) mg/dL Creatinine (0.52-1.04) mg/dL Est GFR (MDRD) Af Amer (>60 ml/min/1.73 sqM) Est GFR (MDRD) Non-Af (>60 ml/min/1.73 sqM) Glucose (74-99) mg/dL POC Glucose (mg/dL) (75-99) mg/dL POC Glu Electronic Induction Hardener ID Calcium (8.4-10.2) mg/dL Magnesium (1.6-2.3) mg/dL Total Bilirubin (0.2-1.3) mg/dL AST (14-36) U/L ALT (9-52) U/L Alkaline Phosphatase (38-126) U/L Total Creatine Kinase (30-135) U/L CK-MB (CK-2) (0.0-2.4) ng/mL CK-MB (CK-2) Rel Index Troponin I (0.000-0.034) ng/mL NT-Pro-B Natriuret Pep pg/mL Total Protein (6.3-8.2) g/dL Albumin (3.5-5.0) g/dL Urine Color Light Yellow Urine Appearance Clear (Clear) Urine pH 6.0 (5.0-8.0) Ur Specific [place] 1.012 (1.001-1.035) Urine Protein 1+ H (Negative) Urine Glucose (UA) 3+ H (Negative) Urine Ketones Negative (Negative) Urine Blood Negative (Negative) Urine Nitrite Negative (Negative) Urine Bilirubin Negative (Negative) Urine Urobilinogen <2.0 (<2.0) mg/dL Ur Leukocyte Esterase Trace H (Negative) Urine RBC 1 (0-5) /hpf Urine WBC 6 H (0-5) /hpf Ur Squamous Epith Cells 1 (0-4) /hpf Hyaline Casts 1 (0-2) /lpf Urine Mucus Rare H (None) /hpf Disposition Clinical Impression: Weakness, Hyperglycemia, HTN (hypertension) Disposition: ADMITTED IP TO THIS HOSP Condition: Fair Referrals: Reji Bartholomew MD [Primary Care Provider] - 1-2 days
[2017-04-13 02:16] LABS: Basophils # (A) 0.1 k/uL (0-0.2); Basophils % (A) 1 %; CH 30.5; CHCM 31.2; Eosinophils # (A) 0.3 k/uL (0-0.7); Eosinophils % (A) 3 %; HDW 2.15; Luc # (Auto) 0.17; Luc % (Auto) 2; Lymphocytes # (A) 1.8 k/uL (1.0-4.8); Lymphocytes % (A) 17 %; MCH 29.8 pg (25.0-35.0); MCHC 30.3 g/dL (31.0-37.0); MCV 98.5 fL (80.0-100.0); Mean Platelet Volume 6.9; Monocytes # (A) 0.6 k/uL (0-1.0); Monocytes % (A) 6 %; Neutrophils # (A) 7.6 k/uL (1.3-7.7); Neutrophils % (A) 72 %; RBC 4.36 m/uL (3.80-5.40); RDW 13.2 % (11.5-15.5); WBC 10.6 k/uL (3.8-10.6); WBC (Perox) 10.24
[2017-04-13 02:24] LABS: Partial Thromboplastin Time 22.5 sec (22.0-30.0); Prothrombin Time 9.8 sec (9.0-12.0)
[2017-04-13 02:25] LABS: ALT 48 U/L (9-52); AST 37 U/L (14-36); Alkaline Phosphatase 117 U/L (38-126); Anion Gap 7 mmol/L; Blood Urea Nitrogen 24 mg/dL (7-17); Carbon Dioxide 27 mmol/L (22-30); Chloride 103 mmol/L (98-107); Glucose 265 mg/dL (74-99); Magnesium 1.8 mg/dL (1.6-2.3); Non-African American GFR(MDRD) >60 (>60 ml/min/1.73 sqM); Potassium 4.5 mmol/L (3.5-5.1); Sodium 137 mmol/L (137-145); Total Bilirubin 0.2 mg/dL (0.2-1.3); Total Protein 7.2 g/dL (6.3-8.2)
--- NOTE | 2017-04-13 02:34 | CT ---
EXAMINATION TYPE: CT brain wo con DATE OF EXAM: 04/13/2017 COMPARISON: 12/16/2016 HISTORY: weakness CT DLP: 1012 mGycm Automated exposure control for dose reduction was used. FINDINGS: There is patchy hypodensity in the periventricular white matter. There is no mass effect nor midline shift. There is no sign of intracranial hemorrhage. The calvarium is intact. IMPRESSION: CEREBRAL ATROPHY AND CHRONIC SMALL VESSEL ISCHEMIA. NO ACUTE INTRACRANIAL ABNORMALITY. NO CHANGE.
--- NOTE | 2017-04-13 02:36 | XR ---
EXAMINATION TYPE: XR chest 2V DATE OF EXAM: 04/13/2017 COMPARISON: 12/16/2016 HISTORY: Weakness TECHNIQUE: Frontal and lateral views of the chest are obtained. FINDINGS: Heart is enlarged. There is mild pulmonary vascular congestion. There is mild linear densi ty at the left lung base. There are chest leads. IMPRESSION: Mild pulmonary congestion without overt heart failure.. No pulmonary consolidation. Stab le mild scarring or subsegmental atelectasis at the left lung base.
[2017-04-13 02:38] LABS: Creatine Kinase 46 U/L (30-135)
[2017-04-13 02:44] LABS: Appearance,Urine Clear (Clear); Bilirubin,Urine Negative (Negative); Glucose,Urine (UA) 3+ (Negative); Ketones,Urine Negative (Negative); Leukocyte Esterase,Urine Trace (Negative); Mucus,Urine Rare /hpf; Nitrite,Urine Negative (Negative); Particle Count 862; Protein,Urine 1+ (Negative); RBC,Urine 1 /hpf (0-5); Specific Gravity,Urine 1.012 (1.001-1.035); Squamous Epithelial Cell,Urine 1 /hpf (0-4); UA Billing (MACRO vs. MICRO) MICRO; Urobilinogen,Urine <2.0 mg/dL (<2.0); WBC,Urine 6 /hpf (0-5)
[2017-04-13 02:51] LABS: Creatine Kinase MB 0.8 ng/mL (0.0-2.4); Troponin I <0.012 ng/mL (0.000-0.034)
[2017-04-13] MEDS ORDERED: ONDANSETRON 4 MG/2 ML VIAL IVP PRN (03:06)
[2017-04-13 05:25] VITALS: BMI 37.0
[2017-04-13 07:11] LABS: Glucose,Whole Blood 198 mg/dL (75-99)
[2017-04-13] MEDS: INSULIN LISPRO (humaLOG) 300 UNIT/3 ML VIAL SQ SCH ×2 (08:46→13:19)
[2017-04-13 10:57] LABS: Glucose,Whole Blood 191 mg/dL (75-99)
[2017-04-13] MEDS ORDERED: ALPRAZolam 0.5 MG TAB PO PRN (12:21)
[2017-04-13] MEDS ORDERED: FLUTICASONE 50MCG/SPRAY NASAL 16GM EA NOSTRIL PRN (12:21)
[2017-04-13] MEDS ORDERED: BUMETANIDE 1 MG TAB PO PRN (12:21)
[2017-04-13] MEDS ORDERED: DICLOFENAC SODIUM GEL 100 GM TUBE TOPICAL PRN (12:21)
--- NOTE | 2017-04-13 12:42 | P.HPIM ---
History of Present Illness H&P Date: 04/13/17 Chief Complaint: weakness Mirian Briceno is a 71 year old female who presented to [facility] emergency room with feeling of generalized weakness, patient states that for the last couple of days she was feeling very fatigued and weak, she was sleeping most of the time while she was sitting in her home, prior to presentation she walked to the bathroom she sat on the toilet, her found her later sitting on the toilet poorly responsive and leaning to the right , he tried to get her up but he was not successful EMS were called and patient was brought into emergency room. She was evaluated in the emergency room computed tomography scan of the brain revealed chronic atrophy but no acute changes, EKG reveals sinus bradycardia with QRS widening, troponin was negative, blood pressure on presentation was significantly high at 203/96 , glucose level was elevated at 265, otherwise no significant abnormality found . patient was admitted to medical floor for further evaluation. Past Medical History Past Medical History: Chest Pain / Angina, Diabetes Mellitus, Fibromyalgia, GERD /Reflux, Hyperlipidemia, Hypertension, Osteoarthritis (OA), Renal Disease, Rheumatoid Arthritis (RA), Thyroid Disorder Additional Past Medical History / Comment(s): BURSITIS, falls, chronic sacral wound(wcc) History of Any Multi-Drug Resistant Organisms: None Reported Past Surgical History: Adenoidectomy, Cholecystectomy, Hysterectomy, Orthopedic Surgery, Tonsillectomy Additional Past Surgical History / Comment(s): 3 RIGHT KNEE SURGERIES AND 2 LEFT TOTAL KNEE REPLACEMENTS SURGERIES. D&C'S. Lap Ignacio-en-Y gastric [place] [address] Zambrano , total hysterectomy for fibroid tumor, tubal ligation Past Anesthesia/Blood Transfusion Reactions: Motion Sickness Additional Past Anesthesia/Blood Transfusion Reaction / Comment(s): Pt received blood in 2012 without reaction. Past Psychological History: Anxiety, Depression Additional Psychological History / Comment(s): PT'S 44 YEAR OLD SON JANUARY 2014 AND THEY HAVE GAURDIANSHIP OF HIS DAUGHTER. Smoking Status: Never smoker Past Alcohol Use History: None Reported Past Drug Use History: None Reported - Past Family History Mother Family Medical History: Coronary Artery Disease (CAD) Additional Family Medical History / Comment(s): age 90 of heart failure. Had hx of Parkinsons and Narcolepsy Father Family Medical History: Coronary Artery Disease (CAD) Additional Family Medical History / Comment(s): age 73 of massive heart attack Medications and Allergies Home Medications Medication Instructions Recorded Confirmed Type Bumetanide [BUMEX] 1 - 2 mg PO DAILY PRN 10/02/14 04/13/17 History Cholecalciferol [Vitamin D3] 2,000 unit PO TID 10/02/14 04/13/17 History Clopidogrel [Plavix] 75 mg PO AC-SUPPER 10/02/14 04/13/17 History Fluticasone Propionate [Flonase 1 - 2 spray EA NOSTRIL DAILY PRN 10/02/14 History Allergy Relief] Gabapentin [Neurontin] 100 mg PO DAILY 10/02/14 04/13/17 History Insulin Detemir [Levemir] 10 unit SQ HS 10/02/14 04/13/17 History Pantoprazole Sodium 40 mg PO AC-BRKFST 10/02/14 04/13/17 History cycloSPORINE [Restasis] 1 drop BOTH EYES BID 10/02/14 04/13/17 History DULoxetine HCL [Cymbalta] 60 mg PO HS 04/16/15 04/13/17 History traZODone HCL [Desyrel] 50 mg PO HS 06/06/15 04/13/17 History Diclofenac Sodium [Voltaren Gel] 2 gram TOPICAL DAILY PRN 12/16/16 04/13/17 History Doxercalciferol [Hectorol] 0.5 mcg PO MOTUWETHFR 12/16/16 04/13/17 History Gabapentin [Neurontin] 100 mg PO AC-SUPPER 12/16/16 04/13/17 History Levothyroxine Sodium [Synthroid] 137 mcg PO AC-BRKFST 12/16/16 04/13/17 History Milk Thistle 200 mg PO DAILY 12/16/16 04/13/17 History amLODIPine BESYLATE [Norvasc] 5 tab PO AC-BRKFST 12/16/16 04/13/17 History glipiZIDE [Glucotrol] 2.5 mg PO AC-BID 12/16/16 04/13/17 History ALPRAZolam [Xanax] 0.5 mg PO Q8H PRN 04/13/17 04/13/17 History Estrogens, Conjugated [Premarin] 0.3 mg PO DAILY 04/13/17 04/13/17 History Ferrous Sulfate [Iron] 325 mg PO DAILY 04/13/17 04/13/17 History HYDROcodone/APAP 7.5-325MG [[place] 1 tab PO BID PRN 04/13/17 04/13/17 History 7.5-325] Loteprednol Etabonate [Lotemax] 1 drop OP DAILY 04/13/17 04/13/17 History Metoprolol Tartrate [Lopressor] 12.5 mg PO BID 04/13/17 04/13/17 History hydrOXYzine PAMOATE [Vistaril] 50 mg PO TID 04/13/17 04/13/17 History tiZANidine HCL [Zanaflex] 4 mg PO BID PRN 04/13/17 04/13/17 History Allergies Allergy/AdvReac Type Severity Reaction Status Date / Time triamcinolone Allergy Unknown Verified 04/13/17 08:52 caffeine AdvReac Nausea & Verified 04/13/17 08:52 Vomiting & Diarrhea hydrocodone bitartrate AdvReac Itching Verified 04/13/17 08:52 [From Lorcet (hydrocodone)] Penicillins AdvReac Nausea & Verified 04/13/17 08:52 Vomiting & Diarrhea tramadol HCl [From Ultram] AdvReac Itching Verified 04/13/17 08:52 ADHESIVE TAPE Allergy Rash/Hives Uncoded 12/16/16 03:20 BEE STINGS Allergy Swelling Uncoded 12/16/16 03:20 Physical Exam Vitals: Vital Signs Temp Pulse Pulse Resp BP BP Pulse Ox 04/13/17 07:00 97.7 F 64 16 142/76 96 04/13/17 04:25 18 04/13/17 04:11 98.3 F 56 L 18 180/88 98 04/13/17 03:48 97.6 F 72 16 142/64 100 04/13/17 03:01 56 L 18 160/76 100 04/13/17 01:44 97.2 F L 66 18 203/96 98 Intake and Output 04/12/17 04/13/17 04/13/17 22:59 06:59 14:59 Intake Total 240 Balance 240 Intake: Oral 240 Other: Voiding Method Toilet Toilet # Voids 1 Weight 80.558 kg In general patient is alert and oriented 3 in no apparent distress HEENT head normocephalic and atraumatic Neck is supple no JVD no goiter no lymphadenopathy Chest exam reveals a few scattered rhonchi no wheezing Cardiac exam reveals regular heart sounds S1 and S2 no gallops no murmurs Abdomen is soft nontender no organomegaly Extremity exam reveals no edema no cyanosis or clubbing Results CBC & Chem 7: 04/13/17 01:50 04/13/17 01:50 Labs: Abnormal Lab Results - Last 24 Hours (Table) 04/13/17 04/13/17 04/13/17 Range/Units 01:50 01:50 01:55 MCHC 30.3 L (31.0-37.0) g/dL BUN 24 H (7-17) mg/dL Glucose 265 H (74-99) mg/dL POC Glucose (mg/dL) 242 H (75-99) mg/dL AST 37 H (14-36) U/L Urine Protein (Negative) Urine Glucose (UA) (Negative) Ur Leukocyte Esterase (Negative) Urine WBC (0-5) /hpf Urine Mucus (None) /hpf 04/13/17 04/13/17 04/13/17 Range/Units 02:30 07:10 10:55 MCHC (31.0-37.0) g/dL BUN (7-17) mg/dL Glucose (74-99) mg/dL POC Glucose (mg/dL) 198 H 191 H (75-99) mg/dL AST (14-36) U/L Urine Protein 1+ H (Negative) Urine Glucose (UA) 3+ H (Negative) Ur Leukocyte Esterase Trace H (Negative) Urine WBC 6 H (0-5) /hpf Urine Mucus Rare H (None) /hpf Thrombosis Risk Factor Assmnt - Choose All That Apply Any of the Below Risk Factors Present?: Yes Each Factor Represents 1 point: Obesity (BMI >25) Other Risk Factors: Yes Each Risk Factor Represents 2 Points: Age 61-74 years Thrombosis Risk Factor Assessment Total Risk Factor Score: 3 Thrombosis Risk Factor Assessment Level: Moderate Risk Assessment and Plan Plan: #1 generalized weakness #2 episode of syncope prior to admission, it's not clear whether patient totally lost consciousness and for how long #3 hypertensive emergency on presentation #4 hyperglycemia #5 underlying history of diabetes mellitus requiring insulin At this time will check echocardiogram and carotid Doppler will consult cardiology with recheck labs in a.m. Will consult physical therapy and occupational therapy
[2017-04-13] MEDS: HYDROcodone/APAP 7.5-325MG 1 EACH TAB PO PRN ×2 (13:16→22:12)
[2017-04-13] MEDS: amLODIPine 5 MG TAB PO SCH (13:17)
[2017-04-13] MEDS: DOXERCALCIFEROL 0.5 MCG CAP PO SCH (13:17)
--- NOTE | 2017-04-13 14:00 | P.CRDCN ---
History of Present Illness Consult date: 04/13/17 History of present illness: This is a 71-year-old female with past medical history significant for diabetes mellitus, hypertension, hyperlipidemia, hypothyroid, rheumatoid arthritis and fibromyalgia. We have been asked to see her in consultation today for c/o weakness and near syncope. She apparently woke up in the night to go to the bathroom and became weak on the toilet and was unable to stand up. Her states she seemed loopy and sleepy but didn't lose consciousness. Per the patient she didn't have a bowel movement. She denies symptoms of chest pain , palpitations, dizziness, diaphoresis, nausea or vomiting prior to the event as well as after. At the time of my exam she is sitting up in bed in no acute distress. She was recently admitted in December with a similar episode and underwent a cardiac evaluation at that time which revealed normal carotid arteries and normal echocardiogram. EKG on arrival revealed sinus mechanism with criteria for left ventricular hypertrophy with QRS widening and nonspecific T-wave abnormalities. This is consistent with previous EKG. Chest x-ray reveals mild pulmonary congestion without heart failure. Blood pressure 142/76 with heart rate is 64. Hemoglobin 13.0, platelets 312, potassium 4.5, magnesium 1.8, BUN 24, creatinine 0.8, cardiac enzymes negative 2. Current cardiac medications include Norvasc 5 mg daily, Lopressor 12.5 mg twice a day, Plavix 75 mg daily and Bumex when necessary for lower extremity swelling. Review of Systems CONSTITUTIONAL: Denies fever. Denies chills. EYES: Denies blurred vision. Denies vision changes. Denies eye pain. EARS, NOSE, MOUTH & THROAT: Denies headache. Denies sore throat. Denies ear pain. CARDIOVASCULAR: Denies chest pain. Denies shortness of breath. Denies orthopnea. Denies PND. Denies palpitations. RESPIRATORY: Denies cough. GASTROINTESTINAL: Denies abdominal pain. Denies diarrhea. Denies constipation. Denies nausea. Denies vomiting. MUSCULOSKELETAL: Denies myalgias. INTEGUMENTARY: Denies pruitis. Denies rash. NEUROLOGIC: Denies numbness. Denies tingling. Complains of weakness. PSYCHIATRIC: Denies anxiety. Denies depression. ENDOCRINE: Denies fatigue. Denies weight change. Denies polydipsia. Denies polyurina. GENITOURINARY: Denies burning, hematuria or urgency with micturation. HEMATOLOGIC: Denies history of anemia. Denies bleeding. Past Medical History Past Medical History: Chest Pain / Angina, Diabetes Mellitus, Fibromyalgia, GERD /Reflux, Hyperlipidemia, Hypertension, Osteoarthritis (OA), Renal Disease, Rheumatoid Arthritis (RA), Thyroid Disorder Additional Past Medical History / Comment(s): BURSITIS, falls, chronic sacral wound(wcc) History of Any Multi-Drug Resistant Organisms: None Reported Past Surgical History: Adenoidectomy, Cholecystectomy, Hysterectomy, Orthopedic Surgery, Tonsillectomy Additional Past Surgical History / Comment(s): 3 RIGHT KNEE SURGERIES AND 2 LEFT TOTAL KNEE REPLACEMENTS SURGERIES. D&C'S. Lap Ignacio-en-Y gastric bypass [place] [address] Zambrano , total hysterectomy for fibroid tumor, tubal ligation Past Anesthesia/Blood Transfusion Reactions: Motion Sickness Additional Past Anesthesia/Blood Transfusion Reaction / Comment(s): Pt received blood in 2012 without reaction. Past Psychological History: Anxiety, Depression Additional Psychological History / Comment(s): PT'S 44 YEAR OLD SON JANUARY 2014 AND THEY HAVE GAURDIANSHIP OF HIS DAUGHTER. Smoking Status: Never smoker Past Alcohol Use History: None Reported Past Drug Use History: None Reported - Past Family History Mother Family Medical History: Coronary Artery Disease (CAD) Additional Family Medical History / Comment(s): age 90 of heart failure. Had hx of Parkinsons and Narcolepsy Father Family Medical History: Coronary Artery Disease (CAD) Additional Family Medical History / Comment(s): age 73 of massive heart attack Medications and Allergies Home Medications Medication Instructions Recorded Confirmed Type Bumetanide [BUMEX] 1 - 2 mg PO DAILY PRN 10/02/14 04/13/17 History Cholecalciferol [Vitamin D3] 2,000 unit PO TID 10/02/14 04/13/17 History Clopidogrel [Plavix] 75 mg PO AC-SUPPER 10/02/14 04/13/17 History Fluticasone Propionate [Flonase 1 - 2 spray EA NOSTRIL DAILY PRN 10/02/14 History Allergy Relief] Gabapentin [Neurontin] 100 mg PO DAILY 10/02/14 04/13/17 History Insulin Detemir [Levemir] 10 unit SQ HS 10/02/14 04/13/17 History Pantoprazole Sodium 40 mg PO AC-BRKFST 10/02/14 04/13/17 History cycloSPORINE [Restasis] 1 drop BOTH EYES BID 10/02/14 04/13/17 History DULoxetine HCL [Cymbalta] 60 mg PO HS 04/16/15 04/13/17 History traZODone HCL [Desyrel] 50 mg PO HS 06/06/15 04/13/17 History Diclofenac Sodium [Voltaren Gel] 2 gram TOPICAL DAILY PRN 12/16/16 04/13/17 History Doxercalciferol [Hectorol] 0.5 mcg PO MOTUWETHFR 12/16/16 04/13/17 History Gabapentin [Neurontin] 100 mg PO AC-SUPPER 12/16/16 04/13/17 History Levothyroxine Sodium [Synthroid] 137 mcg PO AC-BRKFST 12/16/16 04/13/17 History Milk Thistle 200 mg PO DAILY 12/16/16 04/13/17 History amLODIPine BESYLATE [Norvasc] 5 tab PO AC-BRKFST 12/16/16 04/13/17 History glipiZIDE [Glucotrol] 2.5 mg PO AC-BID 12/16/16 04/13/17 History ALPRAZolam [Xanax] 0.5 mg PO Q8H PRN 04/13/17 04/13/17 History Estrogens, Conjugated [Premarin] 0.3 mg PO DAILY 04/13/17 04/13/17 History Ferrous Sulfate [Iron] 325 mg PO DAILY 04/13/17 04/13/17 History HYDROcodone/APAP 7.5-325MG [[place] 1 tab PO BID PRN 04/13/17 04/13/17 History 7.5-325] Loteprednol Etabonate [Lotemax] 1 drop OP DAILY 04/13/17 04/13/17 History Metoprolol Tartrate [Lopressor] 12.5 mg PO BID 04/13/17 04/13/17 History hydrOXYzine PAMOATE [Vistaril] 50 mg PO TID 04/13/17 04/13/17 History tiZANidine HCL [Zanaflex] 4 mg PO BID PRN 04/13/17 04/13/17 History Allergies Allergy/AdvReac Type Severity Reaction Status Date / Time triamcinolone Allergy Unknown Verified 04/13/17 08:52 caffeine AdvReac Nausea & Verified 04/13/17 08:52 Vomiting & Diarrhea hydrocodone bitartrate AdvReac Itching Verified 04/13/17 08:52 [From Lorcet (hydrocodone)] Penicillins AdvReac Nausea & Verified 04/13/17 08:52 Vomiting & Diarrhea tramadol HCl [From Ultram] AdvReac Itching Verified 04/13/17 08:52 ADHESIVE TAPE Allergy Rash/Hives Uncoded 12/16/16 03:20 BEE STINGS Allergy Swelling Uncoded 12/16/16 03:20 Physical Exam Vitals: Vital Signs Temp Pulse Pulse Resp BP BP Pulse Ox 04/13/17 07:00 97.7 F 64 16 142/76 96 04/13/17 04:25 18 04/13/17 04:11 98.3 F 56 L 18 180/88 98 04/13/17 03:48 97.6 F 72 16 142/64 100 04/13/17 03:01 56 L 18 160/76 100 04/13/17 01:44 97.2 F L 66 18 203/96 98 Intake and Output 04/12/17 04/13/17 04/13/17 22:59 06:59 14:59 Intake Total 240 Balance 240 Intake: Oral 240 Other: Voiding Method Toilet Toilet # Voids 1 Weight 80.558 kg GENERAL: This is a 71-year-old female in no apparent distress at the time of my examination. HEENT: Head is atraumatic, normocephalic. Pupils are equal, round. Sclerae anicteric. Conjunctivae are clear. Mucous membranes of the mouth are moist. Neck is supple. There is no jugular venous distention. No carotid bruit is heard. LUNGS: Clear to auscultation no wheezes, rales or rhonchi. No chest wall tenderness is noted on palpation or with deep breathing. HEART: Regular rate and rhythm without murmurs, rubs or gallops. S1 and S2 heard. ABDOMEN: Soft, nontender. Bowel sounds are heard. No organomegaly noted. EXTREMITIES: 2+ peripheral pulses with no evidence of peripheral edema and no calf tenderness noted. NEUROLOGIC: Patient is awake, alert and oriented x3. Results 04/13/17 01:50 04/13/17 01:50 Cardiac Enzymes 04/13/17 04/13/17 04/13/17 Range/Units 01:50 01:50 10:44 AST 37 H (14-36) U/L CK-MB (CK-2) 0.8 (0.0-2.4) ng/mL Troponin I <0.012 <0.012 (0.000-0.034) ng/mL Coagulation 04/13/17 Range/Units 01:50 PT 9.8 (9.0-12.0) sec APTT 22.5 (22.0-30.0) sec CBC 04/13/17 Range/Units 01:50 WBC 10.6 (3.8-10.6) k/uL RBC 4.36 (3.80-5.40) m/uL Hgb 13.0 (11.4-16.0) gm/dL Hct 43.0 (34.0-46.0) % Plt Count 312 (150-450) k/uL Comprehensive Metabolic Panel 04/13/17 Range/Units 01:50 Sodium 137 (137-145) mmol/L Potassium 4.5 (3.5-5.1) mmol/L Chloride 103 (98-107) mmol/L Carbon Dioxide 27 (22-30) mmol/L BUN 24 H (7-17) mg/dL Creatinine 0.80 (0.52-1.04) mg/dL Glucose 265 H (74-99) mg/dL Calcium 10.0 (8.4-10.2) mg/dL AST 37 H (14-36) U/L ALT 48 (9-52) U/L Alkaline Phosphatase 117 (38-126) U/L Total Protein 7.2 (6.3-8.2) g/dL Albumin 4.1 (3.5-5.0) g/dL Current Medications Generic Name Dose Route Start Last Admin Trade Name Freq PRN Reason Stop Dose Admin Hydrocodone Bitart/Acetaminophen 1 each 04/13/17 13:05 04/13/17 13:16 [place] 7.5-325 PO 1 each Q6H PRN Administration Pain Alprazolam 0.5 mg 04/13/17 12:21 Xanax PO Q8H PRN Anxiety Amlodipine Besylate 5 mg 04/13/17 12:30 04/13/17 13:17 Norvasc PO 5 mg AC-BRKFST [facility] Administration Bumetanide 1 mg 04/13/17 12:21 Bumex PO DAILY PRN FLUID RETENTION Cholecalciferol 2,000 unit 04/13/17 16:00 Vitamin D3 PO TID [facility] Clopidogrel Bisulfate 75 mg 04/13/17 17:30 Plavix PO AC-SUPPER [facility] Cyclosporine 1 drops 04/13/17 21:00 Restasis 0.05% Ophth Soln BOTH EYES BID [facility] Diclofenac Sodium 2 gm 04/13/17 12:21 Voltaren Gel TOPICAL DAILY PRN Pain Doxercalciferol 0.5 mcg 04/13/17 12:30 04/13/17 13:17 Hectorol PO 0.5 mcg MOTUWETHFR [facility] Administration Duloxetine HCl 60 mg 04/13/17 21:00 Cymbalta PO HS [facility] Estrogens Conjugated 0.3 mg 04/14/17 09:00 Premarin PO DAILY [facility] Ferrous Sulfate 325 mg 04/14/17 09:00 Feosol PO DAILY [facility] Fluticasone Propionate 1 spray 04/13/17 12:21 Flonase Nasal [place] EA NOSTRIL DAILY PRN Allergy Symptoms Insulin Human Lispro 0 unit 04/13/17 07:30 04/13/17 13:19 Humalog SQ 2 unit [facility] Administration Protocol Ondansetron HCl 4 mg 04/13/17 03:06 Zofran IVP Q8HR PRN Nausea And Vomiting Intake and Output 04/12/17 04/13/17 04/13/17 22:59 06:59 14:59 Intake Total 240 Balance 240 Intake: Oral 240 Other: Voiding Method Toilet Toilet # Voids 1 Weight 80.558 kg 04/13/17 01:50 04/13/17 01:50 Assessment and Plan Assessment: ASSESSMENT 1. Weakness with near syncopal episode on the toilet most likely vasovagal hypotension 2. Essential hypertension 3. Diabetes mellitus type 2 4. Hyperlipidemia PLAN Apply cardiac cath lab radiology technologist to evaluate for arrhythmia. Obtain orthostatic vital signs. From a cardiac perspective this does not appear to have cardiac etiology. Her last admission it was recommended that the patient have a sleep study performed to evaluate for some sleep disorder. This again is recommended to be evaluated by her primary medical team. Follow-up with her neurologist, Dr. Molina is also recommended. Thank you kindly for this consultation. Nurse Practitioner note has been reviewed, I agree with a documented findings and plan of care. Patient was seen and examined.
--- NOTE | 2017-04-13 15:21 | US ---
EXAMINATION TYPE: US carotid duplex BILAT DATE OF EXAM: 04/13/2017 COMPARISON: US carotids 12/16/2016 CLINICAL HISTORY: syncope. Syncope EXAM MEASUREMENTS: RIGHT: Peak Systolic Velocity (PSV) cm/sec ----- Right CCA: 48.3 ----- Right ICA: 74.9 ----- Right ECA: 62.7 ICA/CCA ratio: 1.6 RIGHT: End Diastole cm/sec ----- Right CCA: 9.2 ----- Right ICA: 22.6 ----- Right ECA: 6.0 LEFT: Peak Systolic Velocity (PSV) cm/sec ----- Left CCA: 66.2 ----- Left ICA: 73.5 ----- Left ECA: 81.2 ICA/CCA ratio: 1.1 LEFT: End Diastole cm/sec ----- Left CCA: 17.4 ----- Left ICA: 20.8 ----- Left ECA: 7.6 VERTEBRALS (direction of flow): Right Vertebral: Antegrade Left Vertebral: Antegrade Rhythm: Arrhythmia No significant stenosis seen Grayscale, color Doppler, spectral Doppler imaging performed of the carotid arteries. IMPRESSION: No hemodynamic significant stenosis of the proximal internal carotid arteries bilaterall y by Doppler criteria, and indirect measurement of carotid stenosis Criteria for Assigning % of Stenosis / Diameter reduction (Estimation based on the indirect measurements of the internal carotid artery velocities (ICA PSV). 1. Normal (no stenosis)=ICA PSV < 125 cm/s: ratio < 2.0: ICA EDV<40 cm/s. 2. Less than 50% stenosis=ICA PSV < 125 cm/s: ratio < 2.0: ICA EDV<40 cm/s. 3. 50 to 69% stenosis=ICA PSV of 125 to 230 cm/s: ration 2.0 ? 4.0: ICA EDV 40-100 cm/s. 4. Greater than 70% stenosis to near occlusion= ICA PSV > 230 cm/s: ratio > 4.0: ICA EDV > 100 cm/s. 5. Near occlusion= ICA PSV velocities may be low or undetectable: variable ratio and ICA EDV. 6. Total occlusion=unable to detect flow.
[2017-04-13] MEDS: CHOLECALCIFEROL 1,000 UNIT TAB PO SCH ×2 (16:52→21:34)
[2017-04-13] MEDS: INSULIN ASPART 100 UNIT/ML 1 ML 10 ML VIAL SQ SCH ×2 (16:55→21:44)
[2017-04-13 16:57] LABS: Glucose,Whole Blood 112 mg/dL (75-99)
[2017-04-13] MEDS ORDERED: CLOPIDOGREL 75 MG TAB PO SCH (17:30)
[2017-04-13 19:54] LABS: Glucose,Whole Blood 180 mg/dL (75-99)
[2017-04-13] MEDS ORDERED: DULoxetine HCL 60 MG CAPSULE.DR PO SCH (21:00)
[2017-04-13] MEDS: cycloSPORINE 0.05% OPHTH 0.4 ML DROPERETTE BOTH EYES SCH (21:34)
[2017-04-14 08:05] LABS: Glucose,Whole Blood 140 mg/dL (75-99)
[2017-04-14] MEDS: amLODIPine 5 MG TAB PO SCH (08:06)
[2017-04-14] MEDS: cycloSPORINE 0.05% OPHTH 0.4 ML DROPERETTE BOTH EYES SCH (08:07)
[2017-04-14] MEDS: CHOLECALCIFEROL 1,000 UNIT TAB PO SCH (08:07)
[2017-04-14 08:16] VITALS: RESP 18; TEMP 98
[2017-04-14] MEDS: INSULIN ASPART 100 UNIT/ML 1 ML 10 ML VIAL SQ SCH ×2 (08:19→12:58)
[2017-04-14] MEDS: HYDROcodone/APAP 7.5-325MG 1 EACH TAB PO PRN (08:23)
[2017-04-14] MEDS ORDERED: ESTROGENS, CONJUGATED 0.3 MG TAB PO SCH (09:00)
[2017-04-14] MEDS ORDERED: FERROUS SULFATE 325 MG TAB PO SCH (09:00)
[2017-04-14] MEDS ORDERED: METOPROLOL TARTRATE 12.5 MG TAB PO SCH (10:00)
--- NOTE | 2017-04-14 10:03 | P.DS ---
Providers Date of admission: 04/13/17 03:06 Expected date of discharge: 04/14/17 Attending physician: Taina Vergara Consults: 04/13/17 12:34 Consult Physician Routine Consulting Provider: Eli Kebede Consult Reason/Comments: syncope Do you want consulting provider notified?: Yes Primary care physician: Reji May [facility] Course: Discharge diagnosis #1 generalized weakness with near syncopal episode on the toilet. Most likely vasovagal hypotension. Patient seen evaluated by cardiology. Carotid Doppler negative for any significant hemodynamic stenosis. Recent echo in December 2016 with no severe valvular abnormality. EF of 50-55%. Orthostatic blood pressures were checked and negative area cardiology has cleared her for discharge. #2 diabetes mellitus type 2 #3 hypertensive emergency on presentation #4 essential hypertension Hospital course This is a 71-year-old female with past medical history significant for diabetes mellitus, hypertension, hyperlipidemia, hypothyroid, rheumatoid arthritis and fibromyalgia. We have been asked to see her in consultation today for c/o weakness and near syncope. She apparently woke up in the night to go to the bathroom and became weak on the toilet and was unable to stand up. Her states she seemed loopy and sleepy but didn't lose consciousness. Per the patient she didn't have a bowel movement. She denies symptoms of chest pain , palpitations, dizziness, diaphoresis, nausea or vomiting prior to the event as well as after. At the time of my exam she is sitting up in bed in no acute distress. She was recently admitted in December with a similar episode and underwent a cardiac evaluation at that time which revealed normal carotid arteries and normal echocardiogram. EKG on arrival revealed sinus mechanism with criteria for left ventricular hypertrophy with QRS widening and nonspecific T-wave abnormalities. This is consistent with previous EKG. Chest x-ray reveals mild pulmonary congestion without heart failure. Blood pressure 142/76 with heart rate is 64. Hemoglobin 13.0, platelets 312, potassium 4.5, magnesium 1.8, BUN 24, creatinine 0.8, cardiac enzymes negative 2. Current cardiac medications include Norvasc 5 mg daily, Lopressor 12.5 mg twice a day, Plavix 75 mg daily and Bumex when necessary for lower extremity swelling. Patient seen evaluated by cardiology. He felt that her symptoms were likely related to vasovagal hypotension. Patient has been up and ambulating with no dizziness or chest pain. She's had no further near syncopal episodes. Orthostatic blood pressures were checked and negative. Carotid Doppler was negative. And her last echo was December 2016 with a normal EF and no significant valvular abnormality. Patient is feeling better and eager for discharge home. I performed an examination of the patient and discussed their management with the physician Hypo Dipper. I have reviewed the Physician Hypo Dipper's notes and agree with the documented findings and plan of care Patient Condition at Discharge: Stable Plan - Discharge Summary New Discharge Prescriptions: Continue Insulin Detemir [Levemir] 10 unit SQ HS Clopidogrel [Plavix] 75 mg PO AC-SUPPER Bumetanide [BUMEX] 1 - 2 mg PO DAILY PRN PRN Reason: FLUID RETENTION cycloSPORINE [Restasis] 1 drop BOTH EYES BID Gabapentin [Neurontin] 100 mg PO DAILY Cholecalciferol [Vitamin D3] 2,000 unit PO TID Fluticasone Propionate [Flonase Allergy Relief] 1 - 2 spray EA NOSTRIL DAILY PRN PRN Reason: Allergy Symptoms Pantoprazole Sodium 40 mg PO AC-BRKFST DULoxetine HCL [Cymbalta] 60 mg PO HS traZODone HCL [Desyrel] 50 mg PO HS amLODIPine BESYLATE [Norvasc] 5 tab PO AC-BRKFST Gabapentin [Neurontin] 100 mg PO AC-SUPPER Milk Thistle 200 mg PO DAILY Doxercalciferol [Hectorol] 0.5 mcg PO MOTUWETHFR Levothyroxine Sodium [Synthroid] 137 mcg PO AC-BRKFST glipiZIDE [Glucotrol] 2.5 mg PO AC-BID Diclofenac Sodium [Voltaren Gel] 2 gram TOPICAL DAILY PRN PRN Reason: Pain hydrOXYzine PAMOATE [Vistaril] 50 mg PO TID ALPRAZolam [Xanax] 0.5 mg PO Q8H PRN PRN Reason: Anxiety Estrogens, Conjugated [Premarin] 0.3 mg PO DAILY Ferrous Sulfate [Iron] 325 mg PO DAILY HYDROcodone/APAP 7.5-325MG [[place] 7.5-325] 1 tab PO BID PRN PRN Reason: Pain Loteprednol Etabonate [Lotemax] 1 drop OP DAILY Metoprolol Tartrate [Lopressor] 12.5 mg PO BID tiZANidine HCL [Zanaflex] 4 mg PO BID PRN PRN Reason: Pain/Spasms Discharge Medication List Bumetanide [BUMEX] 1 - 2 mg PO DAILY PRN 10/02/14 [History] Cholecalciferol [Vitamin D3] 2,000 unit PO TID 10/02/14 [History] Clopidogrel [Plavix] 75 mg PO AC-SUPPER 10/02/14 [History] Fluticasone Propionate [Flonase Allergy Relief] 1 - 2 spray EA NOSTRIL DAILY PRN 10/02/14 [History] Gabapentin [Neurontin] 100 mg PO DAILY 10/02/14 [History] Insulin Detemir [Levemir] 10 unit SQ HS 10/02/14 [History] Pantoprazole Sodium 40 mg PO AC-BRKFST 10/02/14 [History] cycloSPORINE [Restasis] 1 drop BOTH EYES BID 10/02/14 [History] DULoxetine HCL [Cymbalta] 60 mg PO HS 04/16/15 [History] traZODone HCL [Desyrel] 50 mg PO HS 06/06/15 [History] Diclofenac Sodium [Voltaren Gel] 2 gram TOPICAL DAILY PRN 12/16/16 [History] Doxercalciferol [Hectorol] 0.5 mcg PO MOTUWETHFR 12/16/16 [History] Gabapentin [Neurontin] 100 mg PO AC-SUPPER 12/16/16 [History] Levothyroxine Sodium [Synthroid] 137 mcg PO AC-BRKFST 12/16/16 [History] Milk Thistle 200 mg PO DAILY 12/16/16 [History] amLODIPine BESYLATE [Norvasc] 5 tab PO AC-BRKFST 12/16/16 [History] glipiZIDE [Glucotrol] 2.5 mg PO AC-BID 12/16/16 [History] ALPRAZolam [Xanax] 0.5 mg PO Q8H PRN 04/13/17 [History] Estrogens, Conjugated [Premarin] 0.3 mg PO DAILY 04/13/17 [History] Ferrous Sulfate [Iron] 325 mg PO DAILY 04/13/17 [History] HYDROcodone/APAP 7.5-325MG [[place] 7.5-325] 1 tab PO BID PRN 04/13/17 [History] Loteprednol Etabonate [Lotemax] 1 drop OP DAILY 04/13/17 [History] Metoprolol Tartrate [Lopressor] 12.5 mg PO BID 04/13/17 [History] hydrOXYzine PAMOATE [Vistaril] 50 mg PO TID 04/13/17 [History] tiZANidine HCL [Zanaflex] 4 mg PO BID PRN 04/13/17 [History] Follow up Appointment(s)/Referral(s): Reji Bartholomew MD [Primary Care Provider] - 1 Week Activity/Diet/Wound Care/Special Instructions: Diet: cardiac, diabetic Activity: as tolerated Discharge Disposition: HOME SELF-CARE
[2017-04-14] MEDS: DOXERCALCIFEROL 0.5 MCG CAP PO SCH (11:18)
[2017-04-14 11:41] LABS: Glucose,Whole Blood 231 mg/dL (75-99)
--- NOTE | 2017-04-14 12:59 | P.PN ---
Subjective Progress Note Date: 04/14/17 Mrs. Horowitz is a 8-year-old female with past medical history significant for diabetes mellitus, hypertension, hyper-lipidemia, hypothyroid, rheumatoid arthritis and fibromyalgia. We are seeing her today in follow-up from an initial consultation yesterday for complaints of weakness and near syncopal episode. We have monitored her on telemetry for the previous 24 hours and there has been no significant arrhythmia noted. Orthostatic vital signs and negative for changes. Although she did have hypertension this morning. After receiving her typical dose of amlodipine and this appeared to be resolved. At the time of my examination she is seen sitting up in the chairs socializing with her in no acute distress. She denies chest pain, shortness of breath, dizziness, palpitations or nausea. She states she has had no further episodes similar to what brought her to the hospital. She has been up ambulating without difficulty and denies symptoms with exertion. Objective - Vital Signs Vital signs: Vital Signs Temp 98 F 04/14/17 08:14 Pulse 66 04/14/17 10:10 Resp 18 04/14/17 08:14 BP 168/76 04/14/17 10:10 Pulse Ox 94 L 04/14/17 08:14 Intake & Output 04/13/17 04/14/17 04/14/17 18:59 06:59 18:59 Intake Total 710 Balance 710 Intake: Oral 710 Other: Voiding Method Toilet Toilet Toilet # Voids 3 2 - Exam GENERAL: Well-appearing, well-nourished and in no acute distress. NECK: Supple without JVD or thyromegaly. LUNGS: Breath sounds clear to auscultation bilaterally. Respiration equal and unlabored. No wheezes, rales or rhonchi. HEART: Regular rate and rhythm without murmurs, rubs or gallops. S1 and S2 heard. EXTREMITIES: Normal range of motion, no edema. No clubbing or cyanosis. Peripheral pulses intact and strong. - Labs CBC & Chem 7: 04/13/17 01:50 04/13/17 01:50 Labs: Abnormal Lab Results - Last 24 Hours (Table) 04/13/17 04/13/17 04/13/17 Range/Units 01:50 16:55 19:53 POC Glucose (mg/dL) 112 H 180 H (75-99) mg/dL Hemoglobin A1c 8.6 H (4.0-6.0) % 04/14/17 04/14/17 Range/Units 08:04 11:39 POC Glucose (mg/dL) 140 H 231 H (75-99) mg/dL Hemoglobin A1c (4.0-6.0) % Assessment and Plan Assessment: ASSESSMENT 1. Weakness with near syncopal episode on the toilet most likely vasovagal hypotension 2. Essential hypertension 3. Diabetes mellitus type 2 4. Hyperlipidemia PLAN Telemetry has shown no signs of significant arrhythmia. This episode is most likely secondary to a vasovagal reaction. She should follow-up with her neurologist and her primary care physician after discharge. Nurse Practitioner note has been reviewed, I agree with a documented findings and plan of care. Patient was seen and examined.
[2017-04-14 13:06] VITALS: BP 168/77; PULSE 51
== END 2017-04-14 14:00 | disposition home or self-care (01) ==
LOC: EC 01:43 → 5ONC 03:06 → 5MS5E 22:00
PROVIDERS: ADMIT Internal Medicine; ATTEND Internal Medicine
DX: R53.1 Weakness (principal); R55 Syncope and collapse; E11.65 Type 2 diabetes mellitus with hyperglycemia; I16.1 Hypertensive emergency; I10 Essential (primary) hypertension; E78.5 Hyperlipidemia, unspecified; M06.9 Rheumatoid arthritis, unspecified; E03.9 Hypothyroidism, unspecified; M79.7 Fibromyalgia; K21.9 Gastro-esophageal reflux disease without esophagitis; F41.9 Anxiety disorder, unspecified; F32.9 Major depressive disorder, single episode, unspecified; M19.90 Unspecified osteoarthritis, unspecified site; N28.9 Disorder of kidney and ureter, unspecified; E66.9 Obesity, unspecified; Z68.37 Body mass index [BMI] 37.0-37.9, adult; G47.9 Sleep disorder, unspecified; Z79.899 Other long term (current) drug therapy; Z79.01 Long term (current) use of anticoagulants; Z79.51 Long term (current) use of inhaled steroids; Z79.4 Long term (current) use of insulin; Z79.84 Long term (current) use of oral hypoglycemic drugs; Z91.030 Bee allergy status; Z88.5 Allergy status to narcotic agent; Z88.0 Allergy status to penicillin; Z88.8 Allergy status to other drugs, medicaments and biological substances; Z91.048 Other nonmedicinal substance allergy status; Z98.84 Bariatric surgery status; Z82.49 Family history of ischemic heart disease and other diseases of the circulatory system; Z82.0 Family history of epilepsy and other diseases of the nervous system
CPT/HCPCS: 36415; 70450; 71020; 80053; 81001; 82550; 82553; 83036; 83735; 83880; 84484; 85025; 85610; 85730; 93005; 93880; 96360; 99285

== ENCOUNTER 2017-04-22 13:03 | Emergency (ER) | payer MEDICARE, BC ==
[2017-04-22 13:09] VITALS: TEMP 98.5
[2017-04-22] MEDS ORDERED: ONDANSETRON 4 MG/2 ML VIAL IVP STA (13:51)
[2017-04-22] MEDS ORDERED: HYDROmorphone 1 MG/ML 1 ML SYRINGE IVP STA (13:51)
[2017-04-22 14:15] VITALS: RESP 18
[2017-04-22 14:16] LABS: Basophils % (A) 0 %; CH 29.6; CHCM 31.2; Eosinophils # (A) 0.2 k/uL (0-0.7); Eosinophils % (A) 2 %; HCT 37.7 % (34.0-46.0); HDW 2.12; HGB 11.8 gm/dL (11.4-16.0); Luc # (Auto) 0.12; Luc % (Auto) 1; Lymphocytes % (A) 8 %; MCH 29.9 pg (25.0-35.0); MCHC 31.3 g/dL (31.0-37.0); MCV 95.5 fL (80.0-100.0); Monocytes # (A) 0.7 k/uL (0-1.0); Monocytes % (A) 5 %; Neutrophils # (A) 10.4 k/uL (1.3-7.7); Neutrophils % (A) 84 %; RBC 3.95 m/uL (3.80-5.40); RDW 14.4 % (11.5-15.5); WBC 12.3 k/uL (3.8-10.6); WBC (Perox) 13.19
[2017-04-22 14:26] LABS: INR 1.1 (<1.2); Prothrombin Time 10.8 sec (9.0-12.0)
[2017-04-22 14:29] LABS: Amylase <30 U/L (30-110); Chloride 103 mmol/L (98-107); Glucose 279 mg/dL (74-99); Total Protein 6.3 g/dL (6.3-8.2)
[2017-04-22 14:30] LABS: ALT 35 U/L (9-52); AST 30 U/L (14-36); Alkaline Phosphatase 110 U/L (38-126); Anion Gap 8 mmol/L; Blood Urea Nitrogen 29 mg/dL (7-17); Calcium 9.5 mg/dL (8.4-10.2); Carbon Dioxide 25 mmol/L (22-30); Magnesium 1.9 mg/dL (1.6-2.3); Non-African American GFR(MDRD) >60 (>60 ml/min/1.73 sqM); Potassium 5.2 mmol/L (3.5-5.1); Sodium 136 mmol/L (137-145); Total Bilirubin 0.4 mg/dL (0.2-1.3)
--- NOTE | 2017-04-22 14:35 | XR ---
EXAMINATION TYPE: XR chest 2V DATE OF EXAM: 04/22/2017 COMPARISON: 04/13/2017 TECHNIQUE: PA and lateral views submitted. HISTORY: Shortness of breath FINDINGS: The lungs are clear and there is no pneumothorax, pleural effusion, or focal pneumonia. Arthropathy of the shoulders noted. Density overlying the left humerus may represent calcified patient or small bone island. Calcific tendinosis in the differential diagnosis. Degenerative change of the spine note d. Heart size stable. IMPRESSION: 1. No acute process.
[2017-04-22 14:36] LABS: Creatine Kinase 52 U/L (30-135)
[2017-04-22 14:48] LABS: Creatine Kinase MB 0.7 ng/mL (0.0-2.4); Troponin I <0.012 ng/mL (0.000-0.034)
[2017-04-22 15:25] VITALS: BP 137/62; PULSE 58
[2017-04-22 15:30] LABS: Appearance,Urine Cloudy (Clear); Bilirubin,Urine 1+ (Negative); Glucose,Urine (UA) Trace (Negative); Ketones,Urine Negative (Negative); Leukocyte Esterase,Urine Small (Negative); Mucus,Urine Rare /hpf; Nitrite,Urine Negative (Negative); PH, Urine 5.5 (5.0-8.0); Particle Count 7953; Protein,Urine 3+ (Negative); RBC,Urine 3 /hpf (0-5); Specific Gravity,Urine 1.023 (1.001-1.035); Squamous Epithelial Cell,Urine 6 /hpf (0-4); UA Billing (MACRO vs. MICRO) MICRO; WBC,Urine 5 /hpf (0-5)
--- NOTE | 2017-04-22 16:12 | ED ---
Back Pain HPI - General Chief Complaint: Back Pain/Injury Stated Complaint: shoulder pain/female Time Seen by Provider: 04/22/17 13:30 Source: patient, RN notes reviewed Mode of arrival: ambulatory Limitations: no limitations - History of Present Illness Initial Comments: 71-year-old female presents emergency Department with chief complaint of left- sided pain rating from her left shoulder to her left low back. She states she has 5 miles an the pain is worse with movement at this time. Denies a child. States that she's been having on and off issues last couple weeks. Patient was admitted to the hospital for evaluation approximate 9 days ago. Patient has equal episodes. He states that there was nothing found to be abnormal at that time. Patient denies chest pain, shortness breath, headache, dizziness, nausea vomiting. She does complain of some urinary frequency but no dysuria. - Related Data Home Medications Medication Instructions Recorded Confirmed Bumetanide [BUMEX] 1 - 2 mg PO DAILY PRN 10/02/14 04/22/17 Cholecalciferol [Vitamin D3] 2,000 unit PO TID 10/02/14 04/22/17 Clopidogrel [Plavix] 75 mg PO AC-SUPPER 10/02/14 04/22/17 Fluticasone Propionate [Flonase 1 - 2 spray EA NOSTRIL DAILY PRN 10/02/14 Allergy Relief] Insulin Detemir [Levemir] 10 unit SQ HS 10/02/14 04/22/17 Pantoprazole Sodium 40 mg PO AC-BRKFST 10/02/14 04/22/17 cycloSPORINE [Restasis] 1 drop BOTH EYES BID 10/02/14 04/22/17 DULoxetine HCL [Cymbalta] 60 mg PO HS 04/16/15 04/22/17 traZODone HCL [Desyrel] 50 mg PO HS 06/06/15 04/22/17 Diclofenac Sodium [Voltaren Gel] 2 gram TOPICAL DAILY PRN 12/16/16 04/22/17 Doxercalciferol [Hectorol] 0.5 mcg PO MOTUWETHFR 12/16/16 04/22/17 Gabapentin [Neurontin] 100 mg PO AC-BID 12/16/16 04/22/17 Levothyroxine Sodium [Synthroid] 137 mcg PO AC-BRKFST 12/16/16 04/22/17 Milk Thistle 200 mg PO DAILY 12/16/16 04/22/17 amLODIPine BESYLATE [Norvasc] 5 tab PO AC-BRKFST 12/16/16 04/22/17 glipiZIDE [Glucotrol] 2.5 mg PO AC-BID 12/16/16 04/22/17 ALPRAZolam [Xanax] 0.5 mg PO Q8H PRN 04/13/17 04/22/17 HYDROcodone/APAP 7.5-325MG [[place] 1 tab PO BID PRN 04/13/17 04/22/17 7.5-325] Loteprednol Etabonate [Lotemax] 1 drop OP DAILY 04/13/17 04/22/17 Metoprolol Tartrate [Lopressor] 12.5 mg PO BID 04/13/17 04/22/17 glipiZIDE [Glucotrol] 5 mg PO AC-SUPPER 04/22/17 04/22/17 Allergies Allergy/AdvReac Type Severity Reaction Status Date / Time triamcinolone Allergy Unknown Verified 04/22/17 13:19 caffeine AdvReac Nausea & Verified 04/22/17 13:19 Vomiting & Diarrhea hydrocodone bitartrate AdvReac Itching Verified 04/22/17 13:19 [From Lorcet (hydrocodone)] Penicillins AdvReac Nausea & Verified 04/22/17 13:19 Vomiting & Diarrhea tramadol HCl [From Ultram] AdvReac Itching Verified 04/22/17 13:19 ADHESIVE TAPE Allergy Rash/Hives Uncoded 04/22/17 13:10 BEE STINGS Allergy Swelling Uncoded 04/22/17 13:10 Review of Systems ROS Statement: Those systems with pertinent positive or pertinent negative responses have been documented in the HPI. ROS Other: All systems not noted in ROS Statement are negative. Past Medical History Past Medical History: Chest Pain / Angina, Diabetes Mellitus, Fibromyalgia, GERD /Reflux, Hyperlipidemia, Hypertension, Osteoarthritis (OA), Renal Disease, Rheumatoid Arthritis (RA), Thyroid Disorder Additional Past Medical History / Comment(s): BURSITIS, falls, chronic sacral wound(wcc) History of Any Multi-Drug Resistant Organisms: None Reported Past Surgical History: Adenoidectomy, Cholecystectomy, Hysterectomy, Orthopedic Surgery, Tonsillectomy Additional Past Surgical History / Comment(s): 3 RIGHT KNEE SURGERIES AND 2 LEFT TOTAL KNEE REPLACEMENTS SURGERIES. D&C'S. Lap Ignacio-en-Y gastric [place] [address] Zambrano , total hysterectomy for fibroid tumor, tubal ligation Past Anesthesia/Blood Transfusion Reactions: Motion Sickness Additional Past Anesthesia/Blood Transfusion Reaction / Comment(s): Pt received blood in 2013 without reaction. Past Psychological History: No Psychological Hx Reported Smoking Status: Never smoker Past Alcohol Use History: None Reported Past Drug Use History: None Reported - Past Family History Mother Family Medical History: Coronary Artery Disease (CAD) Additional Family Medical History / Comment(s): age 90 of heart failure. Had hx of Parkinsons and Narcolepsy Father Family Medical History: Coronary Artery Disease (CAD) Additional Family Medical History / Comment(s): age 73 of massive heart attack General Exam Limitations: no limitations General appearance: alert, in no apparent distress Head exam: Present: atraumatic, normocephalic, normal inspection Respiratory exam: Present: normal lung sounds bilaterally. Absent: respiratory distress, wheezes, rales, rhonchi, stridor Cardiovascular Exam: Present: regular rate, normal rhythm, normal heart sounds. Absent: systolic murmur, diastolic murmur, rubs, gallop, clicks GI/Abdominal exam: Present: soft, normal bowel sounds. Absent: distended, tenderness, guarding, rebound, rigid Extremities exam: Present: other (Tenderness over the left scapula, pain with range of motion of left shoulder) Back exam: Present: full ROM, tenderness, CVA tenderness (L). Absent: CVA tenderness (R) Neurological exam: Present: alert, oriented X3, CN II-XII intact, reflexes normal. Absent: motor sensory deficit Skin exam: Present: warm, dry, intact, normal color. Absent: rash Course Vital Signs 04/22/17 04/22/17 04/22/17 13:06 14:09 15:00 Temperature 98.5 F Pulse Rate 64 62 58 L Respiratory 16 18 18 Rate Blood Pressure 126/56 138/64 137/62 O2 Sat by Pulse 96 93 L 96 Oximetry Medical Decision Making - Medical Decision Making 71-year-old female presented emergency department for left-sided pain just not feeling well. Patient's labwork is essentially unremarkable other than some hyperglycemia in which she is poorly controlled diabetic. This most likely is causing urinary frequency. I discussed with patient that she is to control her blood sugars more closely that she is follow-up with Dr. Rodriguez her primary care physician and her pain is related to more muscular in nature as it is reproducible. She states that she's had problems with this in the past with her fibromyalgia. - Lab Data Result diagrams: 04/22/17 14:04 04/22/17 14:04 Lab Results 04/22/17 04/22/17 04/22/17 Range/Units 14:04 14:04 14:04 WBC 12.3 H (3.8-10.6) k/uL RBC 3.95 (3.80-5.40) m/uL Hgb 11.8 (11.4-16.0) gm/dL Hct 37.7 (34.0-46.0) % MCV 95.5 (80.0-100.0) fL MCH 29.9 (25.0-35.0) pg MCHC 31.3 (31.0-37.0) g/dL RDW 14.4 (11.5-15.5) % Plt Count 261 (150-450) k/uL Neutrophils % 84 % Lymphocytes % 8 % Monocytes % 5 % Eosinophils % 2 % Basophils % 0 % Neutrophils # 10.4 H (1.3-7.7) k/uL Lymphocytes # 1.0 (1.0-4.8) k/uL Monocytes # 0.7 (0-1.0) k/uL Eosinophils # 0.2 (0-0.7) k/uL Basophils # 0.0 (0-0.2) k/uL PT (9.0-12.0) sec INR (<1.2) APTT (22.0-30.0) sec Sodium 136 L (137-145) mmol/L Potassium 5.2 H (3.5-5.1) mmol/L Chloride 103 (98-107) mmol/L Carbon Dioxide 25 (22-30) mmol/L Anion Gap 8 mmol/L BUN 29 H (7-17) mg/dL Creatinine 0.90 (0.52-1.04) mg/dL Est GFR (MDRD) Af Amer >60 (>60 ml/min/1.73 sqM) Est GFR (MDRD) Non-Af >60 (>60 ml/min/1.73 sqM) Glucose 279 H (74-99) mg/dL Calcium 9.5 (8.4-10.2) mg/dL Magnesium 1.9 (1.6-2.3) mg/dL Total Bilirubin 0.4 (0.2-1.3) mg/dL AST 30 (14-36) U/L ALT 35 (9-52) U/L Alkaline Phosphatase 110 (38-126) U/L Total Creatine Kinase 52 (30-135) U/L CK-MB (CK-2) 0.7 (0.0-2.4) ng/mL CK-MB (CK-2) Rel Index 1.3 Troponin I <0.012 (0.000-0.034) ng/mL Total Protein 6.3 (6.3-8.2) g/dL Albumin 3.5 (3.5-5.0) g/dL Amylase <30 L (30-110) U/L Lipase 29 (23-300) U/L Urine Color Urine Appearance (Clear) Urine pH (5.0-8.0) Ur Specific [place] (1.001-1.035) Urine Protein (Negative) Urine Glucose (UA) (Negative) Urine Ketones (Negative) Urine Blood (Negative) Urine Nitrite (Negative) Urine Bilirubin (Negative) Urine Urobilinogen (<2.0) mg/dL Ur Leukocyte Esterase (Negative) Urine RBC (0-5) /hpf Urine WBC (0-5) /hpf Ur Squamous Epith Cells (0-4) /hpf Hyaline Casts (0-2) /lpf Urine Mucus (None) /hpf 04/22/17 04/22/17 Range/Units 14:04 15:16 WBC (3.8-10.6) k/uL RBC (3.80-5.40) m/uL Hgb (11.4-16.0) gm/dL Hct (34.0-46.0) % MCV (80.0-100.0) fL MCH (25.0-35.0) pg MCHC (31.0-37.0) g/dL RDW (11.5-15.5) % Plt Count (150-450) k/uL Neutrophils % % Lymphocytes % % Monocytes % % Eosinophils % % Basophils % % Neutrophils # (1.3-7.7) k/uL Lymphocytes # (1.0-4.8) k/uL Monocytes # (0-1.0) k/uL Eosinophils # (0-0.7) k/uL Basophils # (0-0.2) k/uL PT 10.8 (9.0-12.0) sec INR 1.1 (<1.2) APTT 25.0 (22.0-30.0) sec Sodium (137-145) mmol/L Potassium (3.5-5.1) mmol/L Chloride (98-107) mmol/L Carbon Dioxide (22-30) mmol/L Anion Gap mmol/L BUN (7-17) mg/dL Creatinine (0.52-1.04) mg/dL Est GFR (MDRD) Af Amer (>60 ml/min/1.73 sqM) Est GFR (MDRD) Non-Af (>60 ml/min/1.73 sqM) Glucose (74-99) mg/dL Calcium (8.4-10.2) mg/dL Magnesium (1.6-2.3) mg/dL Total Bilirubin (0.2-1.3) mg/dL AST (14-36) U/L ALT (9-52) U/L Alkaline Phosphatase (38-126) U/L Total Creatine Kinase (30-135) U/L CK-MB (CK-2) (0.0-2.4) ng/mL CK-MB (CK-2) Rel Index Troponin I (0.000-0.034) ng/mL Total Protein (6.3-8.2) g/dL Albumin (3.5-5.0) g/dL Amylase (30-110) U/L Lipase (23-300) U/L Urine Color Yellow Urine Appearance Cloudy H (Clear) Urine pH 5.5 (5.0-8.0) Ur Specific [place] 1.023 (1.001-1.035) Urine Protein 3+ H (Negative) Urine Glucose (UA) Trace H (Negative) Urine Ketones Negative (Negative) Urine Blood Negative (Negative) Urine Nitrite Negative (Negative) Urine Bilirubin 1+ H (Negative) Urine Urobilinogen 4.0 (<2.0) mg/dL Ur Leukocyte Esterase Small H (Negative) Urine RBC 3 (0-5) /hpf Urine WBC 5 (0-5) /hpf Ur Squamous Epith Cells 6 H (0-4) /hpf Hyaline Casts 10 H (0-2) /lpf Urine Mucus Rare H (None) /hpf 04/22/17 16:11 EKG performed at 614:07 sinus bradycardia with left axis deviation rate of 56 VA 146 QRS duration 108 [id number] Disposition Clinical Impression: Left shoulder pain, Hyperglycemia, Back pain Disposition: HOME SELF-CARE Condition: Stable Instructions: Back Pain (ED) Additional Instructions: Please return to the Emergency Department if symptoms worsen or any other concerns. Referrals: Reji Bartholomew MD [Primary Care Provider] - 1-2 days Time of Disposition: 16:11
== END 2017-04-22 16:15 | disposition home or self-care (01) ==
LOC: EC 13:03
DX: M54.5 Low back pain (principal); M25.512 Pain in left shoulder; E11.65 Type 2 diabetes mellitus with hyperglycemia; R00.1 Bradycardia, unspecified; K21.9 Gastro-esophageal reflux disease without esophagitis; E78.5 Hyperlipidemia, unspecified; I10 Essential (primary) hypertension; M19.90 Unspecified osteoarthritis, unspecified site; M06.9 Rheumatoid arthritis, unspecified; E07.9 Disorder of thyroid, unspecified; M79.7 Fibromyalgia; Z98.84 Bariatric surgery status; Z88.0 Allergy status to penicillin; Z88.5 Allergy status to narcotic agent; Z88.8 Allergy status to other drugs, medicaments and biological substances; Z91.030 Bee allergy status; Z91.048 Other nonmedicinal substance allergy status; Z79.02 Long term (current) use of antithrombotics/antiplatelets; Z79.4 Long term (current) use of insulin; Z79.84 Long term (current) use of oral hypoglycemic drugs; Z79.899 Other long term (current) drug therapy
CPT/HCPCS: 99284; 96374; 96375; 36415; 93005; 80053; 82150; 82550; 82553; 83690; 83735; 84484; 85025; 85610; 85730; 81001; 71020; J2405; J1170

== ENCOUNTER → 2017-06-17 | Outpatient (CLI) | payer MEDICARE, BC ==
--- NOTE | 2017-06-21 09:07 | MM ---
Reason for exam: screening (asymptomatic). Last mammogram was performed 1 year and 5 months ago. History: Patient is postmenopausal. MG discontinued stereo core RT of the right breast, October 14, 2014. Benign left mammotome panel of the left breast, April 24, 2007. Took estrogen for 21 years beginning at age 42. Physical Findings: A clinical breast exam by your physician is recommended on an annual basis and results should be correlated with mammographic findings. MG 3D Screening Mammo W/Cad Bilateral CC and MLO view(s) were taken. Prior study comparison: January 01, 2016, bilateral MG screening mammo w CAD. December 05, 2014, bilateral MG diagnostic mammo w CAD GAEL. The breast tissue is heterogeneously dense. This may lower the sensitivity of mammography. Finding: There are typically benign vascular, luis f-like calcifications. Stable grouped dystrophic calcifications posterior right breast. No significant changes in finding since January 01, 2016 and December 05, 2014. ASSESSMENT: Negative, BI-RAD 1 RECOMMENDATION: Routine screening mammogram of both breasts in 1 year.
== END | disposition home or self-care (01) ==
LOC: RADMAMWWP 13:25
PROVIDERS: ATTEND Internal Medicine
DX: Z12.31 Encounter for screening mammogram for malignant neoplasm of breast (principal)
CPT/HCPCS: 77063; 77067

== ENCOUNTER 2017-07-04 09:14 | Emergency (ER) | payer MEDICARE, BC ==
[2017-07-04] MEDS ORDERED: ACETAMINOPHEN TAB 325 MG TAB PO STA (09:34)
[2017-07-04] MEDS ORDERED: SODIUM CHLORIDE 0.9% 500 ML IV STA (09:34)
[2017-07-04 10:15] LABS: Basophils % (A) 0 %; Eosinophils # (A) 0.1 k/uL (0-0.7); Eosinophils % (A) 1 %; HCT 40.4 % (34.0-46.0); Lymphocytes # (A) 0.8 k/uL (1.0-4.8); Lymphocytes % (A) 8 %; MCH 29.8 pg (25.0-35.0); MCHC 32.2 g/dL (31.0-37.0); MCV 92.6 fL (80.0-100.0); Mean Platelet Volume 7.8; Monocytes # (A) 0.6 k/uL (0-1.0); Monocytes % (A) 6 %; Neutrophils % (A) 83 %; Platelet Count 300 k/uL (150-450); RBC 4.36 m/uL (3.80-5.40); RDW 15.1 % (11.5-15.5); WBC 9.6 k/uL (3.8-10.6)
--- NOTE | 2017-07-04 10:39 | XR ---
EXAMINATION TYPE: XR chest 2V DATE OF EXAM: 07/04/2017 COMPARISON: 04/22/2017 INDICATION: Cough and congestion TECHNIQUE: Frontal and lateral views of the chest are obtained. FINDINGS: The heart size is normal. The pulmonary vasculature is normal. There is some linear opacity near the cardiac apex. This can be compatible with scarring present prev iously in 2017. No suspicious acute infiltrates are evident.. IMPRESSION: 1. No acute pulmonary process.
[2017-07-04 10:41] LABS: ALT 27 U/L (9-52); AST 29 U/L (14-36); Albumin 3.8 g/dL (3.5-5.0); Alkaline Phosphatase 127 U/L (38-126); Anion Gap 11 mmol/L; Blood Urea Nitrogen 22 mg/dL (7-17); Calcium 9.8 mg/dL (8.4-10.2); Carbon Dioxide 25 mmol/L (22-30); Chloride 101 mmol/L (98-107); Glucose 262 mg/dL (74-99); Potassium 3.9 mmol/L (3.5-5.1); Sodium 137 mmol/L (137-145); Total Bilirubin 0.5 mg/dL (0.2-1.3); Total Protein 7.1 g/dL (6.3-8.2)
[2017-07-04] MEDS ORDERED: OSELTAMIVIR 75 MG CAP PO STA (10:47)
--- NOTE | 2017-07-04 11:33 | ED ---
Fever HPI - General Chief Complaint: Fever Stated Complaint: FLU LIKE SYMPTOMS Time Seen by Provider: 07/04/17 09:21 Source: patient, RN notes reviewed Mode of arrival: wheelchair Limitations: no limitations - History of Present Illness Initial Comments: 72-year-old female presents emergency Department with chief complaint of fever cough congestion started yesterday. Patient states that she did not take any Tylenol or Motrin as morning. Patient states her cough is nonproductive denies any ear pain does complain of mild sore throat. Patient denies any headache, dizziness or confusion. Patient denies any nausea vomiting diarrhea constipation. - Related Data Home Medications Medication Instructions Recorded Confirmed Bumetanide [BUMEX] 1 - 2 mg PO DAILY PRN 10/02/14 07/04/17 Cholecalciferol [Vitamin D3] 2,000 unit PO TID 10/02/14 07/04/17 Clopidogrel [Plavix] 75 mg PO AC-SUPPER 10/02/14 07/04/17 Fluticasone Propionate [Flonase 2 spray EA NOSTRIL DAILY 10/02/14 07/04/17 Allergy Relief] Insulin Detemir [Levemir] 10 unit SQ HS 10/02/14 07/04/17 Pantoprazole Sodium 40 mg PO AC-BRKFST 10/02/14 07/04/17 cycloSPORINE [Restasis] 1 drop BOTH EYES BID 10/02/14 07/04/17 DULoxetine HCL [Cymbalta] 60 mg PO HS 04/16/15 07/04/17 traZODone HCL [Desyrel] 50 mg PO HS 06/06/15 07/04/17 Diclofenac Sodium [Voltaren Gel] 2 gram TOPICAL DAILY PRN 12/16/16 07/04/17 Gabapentin [Neurontin] 100 mg PO AC-BID 12/16/16 07/04/17 Levothyroxine Sodium [Synthroid] 137 mcg PO AC-BRKFST 12/16/16 07/04/17 Milk Thistle 200 mg PO DAILY 12/16/16 07/04/17 ALPRAZolam [Xanax] 0.5 mg PO BID PRN 04/13/17 07/04/17 HYDROcodone/APAP 7.5-325MG [[place] 1 tab PO TID PRN 04/13/17 07/04/17 7.5-325] Loteprednol Etabonate [Lotemax] 1 drop BOTH EYES DAILY 04/13/17 07/04/17 Metoprolol Tartrate [Lopressor] 12.5 mg PO BID 04/13/17 07/04/17 Doxercalciferol [Hectorol] 0.5 mcg PO MOTUWETHFR@2100 07/04/17 07/04/17 Repaglinide [Prandin] 2 mg PO AC-TID 07/04/17 07/04/17 SILVER sulfADIAZINE Cream 1 applic TOPICAL DAILY PRN 07/04/17 07/04/17 [Silvadene 1% Cream] amLODIPine [Norvasc] 5 mg PO DAILY 07/04/17 07/04/17 Previous Rx's Medication Instructions Recorded Oseltamivir [Tamiflu] 75 mg PO Q12HR #10 cap 07/04/17 Allergies Allergy/AdvReac Type Severity Reaction Status Date / Time adhesive tape Allergy Rash/Hives Verified 07/04/17 09:58 insect venom Allergy Swelling Verified 07/04/17 09:58 triamcinolone Allergy Unknown Verified 07/04/17 09:58 venom-honey bee Allergy Swelling Verified 07/04/17 09:58 caffeine AdvReac Nausea & Verified 07/04/17 09:58 Vomiting & Diarrhea hydrocodone bitartrate AdvReac Itching Verified 07/04/17 09:58 [From Lorcet (hydrocodone)] Penicillins AdvReac Nausea & Verified 07/04/17 09:58 Vomiting & Diarrhea tramadol HCl [From Ultram] AdvReac Itching Verified 07/04/17 09:58 Review of Systems ROS Statement: Those systems with pertinent positive or pertinent negative responses have been documented in the HPI. ROS Other: All systems not noted in ROS Statement are negative. Past Medical History Past Medical History: Chest Pain / Angina, Diabetes Mellitus, Fibromyalgia, GERD /Reflux, Hyperlipidemia, Hypertension, Osteoarthritis (OA), Renal Disease, Rheumatoid Arthritis (RA), Thyroid Disorder Additional Past Medical History / Comment(s): BURSITIS, falls, chronic sacral wound(wcc) History of Any Multi-Drug Resistant Organisms: None Reported Past Surgical History: Adenoidectomy, Cholecystectomy, Hysterectomy, Orthopedic Surgery, Tonsillectomy Additional Past Surgical History / Comment(s): 3 RIGHT KNEE SURGERIES AND 2 LEFT TOTAL KNEE REPLACEMENTS SURGERIES. D&C'S. Lap Ignacio-en-Y gastric [place] [address] Zambrano , total hysterectomy for fibroid tumor, tubal ligation Past Anesthesia/Blood Transfusion Reactions: Motion Sickness Additional Past Anesthesia/Blood Transfusion Reaction / Comment(s): Pt received blood in 2013 without reaction. Past Psychological History: No Psychological Hx Reported Smoking Status: Never smoker Past Alcohol Use History: None Reported Past Drug Use History: None Reported - Past Family History Mother Family Medical History: Coronary Artery Disease (CAD) Additional Family Medical History / Comment(s): age 90 of heart failure. Had hx of Parkinsons and Narcolepsy Father Family Medical History: Coronary Artery Disease (CAD) Additional Family Medical History / Comment(s): age 73 of massive heart attack General Exam Limitations: no limitations General appearance: alert, in no apparent distress Head exam: Present: atraumatic, normocephalic, normal inspection Eye exam: Present: normal appearance, PERRL, EOMI. Absent: scleral icterus, conjunctival injection, periorbital swelling ENT exam: Present: normal exam, normal oropharynx, mucous membranes moist, TM's normal bilaterally Neck exam: Present: normal inspection, full ROM. Absent: tenderness, meningismus, lymphadenopathy Respiratory exam: Present: normal lung sounds bilaterally. Absent: respiratory distress, wheezes, rales, rhonchi, stridor Cardiovascular Exam: Present: regular rate, normal rhythm, normal heart sounds. Absent: systolic murmur, diastolic murmur, rubs, gallop, clicks GI/Abdominal exam: Present: soft, normal bowel sounds. Absent: distended, tenderness, guarding, rebound, rigid Neurological exam: Present: alert, oriented X3, CN II-XII intact, reflexes normal. Absent: motor sensory deficit Skin exam: Present: warm, dry, intact, normal color. Absent: rash Course Vital Signs 07/04/17 07/04/17 09:15 10:31 Temperature 98.2 F 99.5 F Pulse Rate 66 Respiratory 20 Rate Blood Pressure 128/79 O2 Sat by Pulse 100 Oximetry Medical Decision Making - Medical Decision Making 72-year-old female presented emergency from for fever cough congestion. Patient his influenza A+. Chest x-ray reviewed no acute abnormality. Patient stable she is normal sort of stress. We discussed patient was started on Tamiflu was given initial dose here. Patient follow-up with primary care physician tomorrow and return for any worsening symptoms. - Lab Data Result diagrams: 07/04/17 09:47 07/04/17 09:47 Lab Results 07/04/17 07/04/17 07/04/17 Range/Units 09:47 09:47 09:47 WBC 9.6 (3.8-10.6) k/uL RBC 4.36 (3.80-5.40) m/uL Hgb 13.0 (11.4-16.0) gm/dL Hct 40.4 (34.0-46.0) % MCV 92.6 (80.0-100.0) fL MCH 29.8 (25.0-35.0) pg MCHC 32.2 (31.0-37.0) g/dL RDW 15.1 (11.5-15.5) % Plt Count 300 (150-450) k/uL Neutrophils % 83 % Lymphocytes % 8 % Monocytes % 6 % Eosinophils % 1 % Basophils % 0 % Neutrophils # 8.0 H (1.3-7.7) k/uL Lymphocytes # 0.8 L (1.0-4.8) k/uL Monocytes # 0.6 (0-1.0) k/uL Eosinophils # 0.1 (0-0.7) k/uL Basophils # 0.0 (0-0.2) k/uL Sodium 137 (137-145) mmol/L Potassium 3.9 (3.5-5.1) mmol/L Chloride 101 (98-107) mmol/L Carbon Dioxide 25 (22-30) mmol/L Anion Gap 11 mmol/L BUN 22 H (7-17) mg/dL Creatinine 0.86 (0.52-1.04) mg/dL Est GFR (MDRD) Af Amer >60 (>60 ml/min/1.73 sqM) Est GFR (MDRD) Non-Af >60 (>60 ml/min/1.73 sqM) Glucose 262 H (74-99) mg/dL Plasma Lactic Acid [place] (0.7-2.0) mmol/L Calcium 9.8 (8.4-10.2) mg/dL Total Bilirubin 0.5 (0.2-1.3) mg/dL AST 29 (14-36) U/L ALT 27 (9-52) U/L Alkaline Phosphatase 127 H (38-126) U/L Total Protein 7.1 (6.3-8.2) g/dL Albumin 3.8 (3.5-5.0) g/dL Influenza Type A RNA Detected H (Not Detectd) Influenza Type B (PCR) Not Detected (Not Detectd) 07/04/17 Range/Units 09:47 WBC (3.8-10.6) k/uL RBC (3.80-5.40) m/uL Hgb (11.4-16.0) gm/dL Hct (34.0-46.0) % MCV (80.0-100.0) fL MCH (25.0-35.0) pg MCHC (31.0-37.0) g/dL RDW (11.5-15.5) % Plt Count (150-450) k/uL Neutrophils % % Lymphocytes % % Monocytes % % Eosinophils % % Basophils % % Neutrophils # (1.3-7.7) k/uL Lymphocytes # (1.0-4.8) k/uL Monocytes # (0-1.0) k/uL Eosinophils # (0-0.7) k/uL Basophils # (0-0.2) k/uL Sodium (137-145) mmol/L Potassium (3.5-5.1) mmol/L Chloride (98-107) mmol/L Carbon Dioxide (22-30) mmol/L Anion Gap mmol/L BUN (7-17) mg/dL Creatinine (0.52-1.04) mg/dL Est GFR (MDRD) Af Amer (>60 ml/min/1.73 sqM) Est GFR (MDRD) Non-Af (>60 ml/min/1.73 sqM) Glucose (74-99) mg/dL Plasma Lactic Acid [place] 1.5 (0.7-2.0) mmol/L Calcium (8.4-10.2) mg/dL Total Bilirubin (0.2-1.3) mg/dL AST (14-36) U/L ALT (9-52) U/L Alkaline Phosphatase (38-126) U/L Total Protein (6.3-8.2) g/dL Albumin (3.5-5.0) g/dL Influenza Type A RNA (Not Detectd) Influenza Type B (PCR) (Not Detectd) Disposition Clinical Impression: Influenza A Disposition: HOME SELF-CARE Condition: Stable Instructions: Influenza (ED) Additional Instructions: Please return to the Emergency Department if symptoms worsen or any other concerns. Prescriptions: Oseltamivir [Tamiflu] 75 mg PO Q12HR #10 cap Referrals: Reji Bartholomew MD [Primary Care Provider] - 1-2 days Time of Disposition: 11:33
[2017-07-04 11:44] LABS: Appearance,Urine Cloudy (Clear); Bacteria,Urine Many /hpf; Bilirubin,Urine 1+ (Negative); Blood,Urine Trace (Negative); Color,Urine Dark Yellow; Glucose,Urine (UA) Trace (Negative); Hyaline Casts,Urine 21 /lpf (0-2); Ketones,Urine Trace (Negative); Leukocyte Esterase,Urine Large (Negative); Mucus,Urine Many /hpf; Nitrite,Urine Positive (Negative); Protein,Urine 3+ (Negative); RBC,Urine 5 /hpf (0-5); Specific Gravity,Urine 1.025 (1.001-1.035); Squamous Epithelial Cell,Urine 7 /hpf (0-4); WBC,Urine 149 /hpf (0-5)
[2017-07-04 12:00] VITALS: BP 133/77; PULSE 77; RESP 16; TEMP 97
== END 2017-07-04 11:57 | disposition home or self-care (01) ==
LOC: EC 09:14
DX: J10.1 Influenza due to other identified influenza virus with other respiratory manifestations (principal); I10 Essential (primary) hypertension; E11.9 Type 2 diabetes mellitus without complications; K21.9 Gastro-esophageal reflux disease without esophagitis; M06.9 Rheumatoid arthritis, unspecified; M79.7 Fibromyalgia; E07.9 Disorder of thyroid, unspecified; Z79.02 Long term (current) use of antithrombotics/antiplatelets; Z79.51 Long term (current) use of inhaled steroids; Z79.4 Long term (current) use of insulin; Z79.52 Long term (current) use of systemic steroids; Z79.899 Other long term (current) drug therapy; Z88.0 Allergy status to penicillin; Z88.5 Allergy status to narcotic agent; Z88.8 Allergy status to other drugs, medicaments and biological substances; Z91.048 Other nonmedicinal substance allergy status; Z86.79 Personal history of other diseases of the circulatory system
CPT/HCPCS: 36415; 71046; 80053; 81001; 83605; 85025; 87040; 87502; 96360; 99283

== ENCOUNTER → 2017-08-22 | Outpatient (CLI) | payer MEDICARE, BC ==
[2017-08-22 12:46] LABS: Appearance,Urine Cloudy (Clear); Bacteria,Urine Moderate /hpf; Bilirubin,Urine 1+ (Negative); Blood,Urine Trace (Negative); Color,Urine Yellow; Glucose,Urine (UA) Negative (Negative); Ketones,Urine Negative (Negative); Leukocyte Esterase,Urine Large (Negative); Mucus,Urine Occasional /hpf; Nitrite,Urine Negative (Negative); Protein,Urine 3+ (Negative); RBC,Urine 25 /hpf (0-5); Specific Gravity,Urine 1.028 (1.001-1.035); Squamous Epithelial Cell,Urine 14 /hpf (0-4); WBC,Urine >182 /hpf (0-5)
[2017-08-22 12:51] LABS: Basophils # (A) 0.1 k/uL (0-0.2); Basophils % (A) 1 %; Eosinophils # (A) 0.2 k/uL (0-0.7); Eosinophils % (A) 2 %; HCT 39.2 % (34.0-46.0); HGB 12.7 gm/dL (11.4-16.0); Lymphocytes # (A) 1.4 k/uL (1.0-4.8); Lymphocytes % (A) 21 %; MCH 30.1 pg (25.0-35.0); MCHC 32.4 g/dL (31.0-37.0); Mean Platelet Volume 6.9; Monocytes # (A) 0.3 k/uL (0-1.0); Monocytes % (A) 5 %; Neutrophils # (A) 4.7 k/uL (1.3-7.7); Neutrophils % (A) 70 %; Platelet Count 302 k/uL (150-450); RBC 4.22 m/uL (3.80-5.40); WBC 6.7 k/uL (3.8-10.6)
[2017-08-22 13:08] LABS: Anion Gap 8 mmol/L; Blood Urea Nitrogen 22 mg/dL (7-17); Calcium 9.8 mg/dL (8.4-10.2); Carbon Dioxide 31 mmol/L (22-30); Chloride 102 mmol/L (98-107); Glucose 152 mg/dL (74-99); Magnesium 1.8 mg/dL (1.6-2.3); Phosphorus 3.9 mg/dL (2.5-4.5); Potassium 4.6 mmol/L (3.5-5.1); Sodium 141 mmol/L (137-145)
[2017-08-22 13:50] LABS: Creatinine,Urine Random 236.4 mg/dL
[2017-08-22 20:37] LABS: Iron Saturation 38.28 (12.00-45.00)
[2017-08-22 20:45] LABS: Vitamin D 25 Hydroxy 47.4 ng/mL (30.0-100.0)
[2017-08-22 21:17] LABS: Parathyroid Hormone Intact 99.4 pg/mL (14.0-72.0)
== END | disposition home or self-care (01) ==
LOC: LABWHC1 11:52
PROVIDERS: ATTEND Internal Medicine Nephrology
DX: N18.3 Chronic kidney disease, stage 3 (moderate) (principal); D64.9 Anemia, unspecified; N39.0 Urinary tract infection, site not specified; N25.81 Secondary hyperparathyroidism of renal origin; E55.9 Vitamin D deficiency, unspecified
CPT/HCPCS: 36415; 80048; 81001; 82306; 82570; 82728; 83540; 83550; 83735; 83970; 84100; 84156; 85025

== ENCOUNTER → 2017-11-21 | Outpatient (CLI) | payer MEDICARE, BC ==
[2017-11-21 11:39] LABS: HCT 37.8 % (34.0-46.0); HGB 12.1 gm/dL (11.4-16.0); MCH 30.3 pg (25.0-35.0); MCHC 32.1 g/dL (31.0-37.0); MCV 94.4 fL (80.0-100.0); Mean Platelet Volume 7.1; Platelet Count 312 k/uL (150-450); RBC 4.01 m/uL (3.80-5.40); RDW 13.7 % (11.5-15.5); WBC 6.8 k/uL (3.8-10.6)
[2017-11-21 11:46] LABS: ALT 50 U/L (9-52); AST 45 U/L (14-36); Albumin 3.8 g/dL (3.5-5.0); Alkaline Phosphatase 101 U/L (38-126); Anion Gap 10 mmol/L; Blood Urea Nitrogen 26 mg/dL (7-17); Calcium 9.6 mg/dL (8.4-10.2); Carbon Dioxide 29 mmol/L (22-30); Chloride 102 mmol/L (98-107); Glucose 85 mg/dL (74-99); Potassium 4.7 mmol/L (3.5-5.1); Sodium 141 mmol/L (137-145); Total Bilirubin 0.4 mg/dL (0.2-1.3); Total Protein 6.5 g/dL (6.3-8.2)
[2017-11-21 16:43] LABS: Iron Saturation 34.18 (12.00-45.00)
[2017-11-21 16:51] LABS: Vitamin D 25 Hydroxy 75.7 ng/mL (30.0-100.0)
[2017-11-24 10:13] LABS: Methylmalonic Acid 0.48 umol/L (<0.40)
== END | disposition home or self-care (01) ==
LOC: LABWHC1 10:06
PROVIDERS: ATTEND Internal Medicine
DX: D64.9 Anemia, unspecified (principal); R53.83 Other fatigue; E03.9 Hypothyroidism, unspecified; Z98.84 Bariatric surgery status
CPT/HCPCS: 36415; 80053; 82306; 82525; 82607; 82728; 82747; 83540; 83550; 83921; 84134; 84425; 84443; 84630; 85027

== ENCOUNTER → 2018-04-13 | Outpatient (CLI) | payer MEDICARE, BC ==
[2018-04-13 19:33] LABS: Albumin 4.2 g/dL (3.80-4.90); Albumin/Globulin Ratio 1.75 (1.20-2.10); Anion Gap 6.9 mmol/L (4.00-12.00); Calcium 9.8 mg/dL (8.7-10.3); Carbon Dioxide 29.1 mmol/L (21.6-31.8); Globulin 2.4 g/dL (2.1-3.7); Potassium 4.9 mmol/L (3.5-5.5); Total Bilirubin 0.4 mg/dL (0.3-1.2); Total Protein 6.6 g/dL (6.2-8.2)
[2018-04-14 01:31] LABS: Hemoglobin A1C 9.3 % (4.0-6.0)
== END | disposition home or self-care (01) ==
LOC: LABWHC1 11:02
PROVIDERS: ATTEND Internal Medicine Endocrinology, Diabetes & Metabolism
DX: E11.65 Type 2 diabetes mellitus with hyperglycemia (principal)
CPT/HCPCS: 36415; 80053; 80061; 82043; 82570; 83036

== ENCOUNTER → 2018-07-24 | Outpatient (CLI) | payer MEDICARE, BC ==
[2018-07-24 19:22] LABS: Albumin 3.9 g/dL (3.80-4.90); Albumin/Globulin Ratio 1.7 (1.60-3.17); Anion Gap 7.1 mmol/L (4.00-12.00); Calcium 9.7 mg/dL (8.7-10.3); Carbon Dioxide 30.9 mmol/L (21.6-31.8); Globulin 2.3 g/dL (1.6-3.3); Potassium 4.6 mmol/L (3.5-5.5); Total Bilirubin 0.3 mg/dL (0.2-1.2); Total Protein 6.2 g/dL (6.2-8.2)
[2018-07-24 22:14] LABS: Hemoglobin A1C 9.3 % (4.0-6.0)
== END | disposition home or self-care (01) ==
LOC: LABWHC1 11:23
PROVIDERS: ATTEND Internal Medicine Endocrinology, Diabetes & Metabolism
DX: E11.65 Type 2 diabetes mellitus with hyperglycemia (principal)
CPT/HCPCS: 36415; 80053; 80061; 83036; 84443

== ENCOUNTER → 2018-08-16 | Outpatient (CLI) | payer MEDICARE, BC ==
--- NOTE | 2018-08-16 14:59 | MM ---
Reason for exam: screening (asymptomatic). Last mammogram was performed 1 year and 2 months ago. History: Patient is postmenopausal. MG discontinued stereo core RT of the right breast, October 14, 2014. Benign left mammotome panel of the left breast, April 24, 2007. Took estrogen for 21 years beginning at age 42. Physical Findings: A clinical breast exam by your physician is recommended on an annual basis and results should be correlated with mammographic findings. MG 3D Screening Mammo W/Cad Bilateral CC and MLO view(s) were taken. Prior study comparison: June 17, 2017, bilateral MG 3d screening mammo w/cad. January 01, 2016, bilateral MG screening mammo w CAD. The breast tissue is heterogeneously dense. This may lower the sensitivity of mammography. Finding: There are typically benign dystrophic, round, linear calcifications. There is no discrete abnormality. ASSESSMENT: Benign, BI-RAD 2 RECOMMENDATION: Routine screening mammogram of both breasts in 1 year.
== END ==
LOC: RADMAMWWP 11:34
PROVIDERS: ATTEND Internal Medicine
DX: Z12.31 Encounter for screening mammogram for malignant neoplasm of breast (principal)
CPT/HCPCS: 77063; 77067

== ENCOUNTER → 2018-09-18 | Outpatient (CLI) | payer MEDICARE, BC ==
[2018-09-18 13:33] LABS: Basophils % (A) 1 %; Eosinophils # (A) 0.2 k/uL (0-0.7); Eosinophils % (A) 2 %; HCT 36.7 % (34.0-46.0); HGB 11.8 gm/dL (11.4-16.0); Lymphocytes # (A) 1.2 k/uL (1.0-4.8); Lymphocytes % (A) 14 %; MCH 30.9 pg (25.0-35.0); MCHC 32.1 g/dL (31.0-37.0); MCV 96.3 fL (80.0-100.0); Mean Platelet Volume 7.4; Monocytes # (A) 0.4 k/uL (0-1.0); Monocytes % (A) 5 %; Neutrophils # (A) 6.4 k/uL (1.3-7.7); Neutrophils % (A) 77 %; Platelet Count 310 k/uL (150-450); RBC 3.81 m/uL (3.80-5.40); RDW 13.9 % (11.5-15.5); WBC 8.3 k/uL (3.8-10.6)
[2018-09-18 13:48] LABS: Appearance,Urine Cloudy (Clear); Bacteria,Urine Many /hpf; Bilirubin,Urine Negative (Negative); Blood,Urine Negative (Negative); Color,Urine Yellow; Glucose,Urine (UA) Negative (Negative); Ketones,Urine Negative (Negative); Leukocyte Esterase,Urine Large (Negative); Mucus,Urine Rare /hpf; Nitrite,Urine Negative (Negative); PH, Urine 5.5 (5.0-8.0); Protein,Urine 2+ (Negative); RBC,Urine 7 /hpf (0-5); Specific Gravity,Urine 1.029 (1.001-1.035); Squamous Epithelial Cell,Urine 6 /hpf (0-4); Urobilinogen,Urine <2.0 mg/dL (<2.0); WBC,Urine 45 /hpf (0-5)
[2018-09-18 18:32] LABS: Iron Saturation 25.81 (12.00-45.00)
[2018-09-18 18:41] LABS: Vitamin D 25 Hydroxy 52.4 ng/mL (30.0-100.0)
[2018-09-18 18:51] LABS: Calcium 9.3 mg/dL (8.7-10.3); Magnesium 1.8 mg/dL (1.5-2.4); Phosphorus 4.4 mg/dL (2.4-5.1); Uric Acid 4.9 mg/dL (2.9-7.7)
[2018-09-18 18:59] LABS: T4, Free (Free Thyroxine) 1.5 ng/dL (0.80-1.80)
[2018-09-18 20:39] LABS: Parathyroid Hormone Intact 96.5 pg/mL (14.0-72.0)
[2018-09-18 20:53] LABS: Hemoglobin A1C 10.3 % (4.0-6.0)
== END | disposition home or self-care (01) ==
LOC: LABWHC1 11:51
PROVIDERS: ATTEND Internal Medicine Nephrology
DX: E11.22 Type 2 diabetes mellitus with diabetic chronic kidney disease (principal); N18.3 Chronic kidney disease, stage 3 (moderate); D63.1 Anemia in chronic kidney disease; N25.81 Secondary hyperparathyroidism of renal origin; N39.0 Urinary tract infection, site not specified; E11.29 Type 2 diabetes mellitus with other diabetic kidney complication; M10.9 Gout, unspecified; E03.9 Hypothyroidism, unspecified
CPT/HCPCS: 36415; 80048; 81001; 82306; 82728; 83036; 83540; 83550; 83735; 83970; 84100; 84439; 84443; 84550; 85025; 87086

== ENCOUNTER 2018-09-27 10:37 | Emergency (ER) | payer MEDICARE, BC ==
--- NOTE | 2018-09-27 11:19 | ED ---
Lower Extremity Injury HPI - General Chief Complaint: Extremity Injury, Lower Stated Complaint: Fall, hip pain Time Seen by Provider: 09/27/18 10:37 Source: patient, EMS, RN notes reviewed Mode of arrival: EMS Limitations: no limitations - History of Present Illness Initial Comments: This is a 73-year-old female history of multiple medical issues who states she was try to put on some pain goes when she fell off the top of her toilet onto the floor. She complained of pain to her right hip she later for about 5 minutes. She get assistance he not. She denies any head neck or back pain or other injuries. She was brought in by EMS for evaluation. She recently did start Eliquis 01 week ago. - Related Data Home Medications Medication Instructions Recorded Confirmed Bumetanide [BUMEX] 2 mg PO DAILY PRN 10/02/14 09/27/18 Cholecalciferol [Vitamin D3] 2,000 unit PO TID 10/02/14 09/27/18 Fluticasone Propionate [Flonase 2 spray EA NOSTRIL BID 10/02/14 09/27/18 Allergy Relief] Insulin Detemir (Levemir) [Levemir] 8 unit SQ HS 10/02/14 09/27/18 Pantoprazole Sodium 40 mg PO AC-BRKFST 10/02/14 09/27/18 cycloSPORINE [Restasis] 1 drop BOTH EYES BID 10/02/14 09/27/18 DULoxetine HCL [Cymbalta] 60 mg PO HS 04/16/15 09/27/18 traZODone HCL [Desyrel] 50 mg PO HS 06/06/15 09/27/18 Diclofenac Sodium [Voltaren Gel] 2 gram TOPICAL DAILY PRN 12/16/16 09/27/18 Gabapentin [Neurontin] 100 mg PO AC-BID 12/16/16 09/27/18 Levothyroxine Sodium [Synthroid] 137 mcg PO AC-BRKFST 12/16/16 09/27/18 HYDROcodone/APAP 7.5-325MG [[employer] 1 tab PO TID PRN 04/13/17 09/27/18 7.5-325] Loteprednol Etabonate [Lotemax] 1 drop BOTH EYES DAILY 04/13/17 09/27/18 Metoprolol Tartrate [Lopressor] 12.5 mg PO BID 04/13/17 09/27/18 Doxercalciferol [Hectorol] 0.5 mcg PO MOTUWETHFR@2100 07/04/17 09/27/18 Repaglinide [Prandin] 2 mg PO AC-TID 07/04/17 09/27/18 SILVER sulfADIAZINE Cream 1 applic TOPICAL DAILY PRN 07/04/17 09/27/18 [Silvadene 1% Cream] Apixaban [Eliquis] 5 mg PO BID 09/27/18 09/27/18 Diltiazem Cd [Cardizem Cd] 180 mg PO W/SUPPER 09/27/18 09/27/18 Milk Thistle 150 mg PO DAILY 09/27/18 09/27/18 Optive Eye Drop 1 drop BOTH EYES DAILY 09/27/18 09/27/18 Pravastatin Sodium [Pravachol] 20 mg PO AC-SUPPER 09/27/18 09/27/18 glipiZIDE [Glucotrol] 5 mg PO AC-BRKFST 09/27/18 09/27/18 Allergies Allergy/AdvReac Type Severity Reaction Status Date / Time adhesive tape Allergy Rash/Hives Verified 09/27/18 11:08 insect venom Allergy Swelling Verified 09/27/18 11:08 triamcinolone Allergy Unknown Verified 09/27/18 11:08 venom-honey bee Allergy Swelling Verified 09/27/18 11:08 caffeine AdvReac Nausea & Verified 09/27/18 11:08 Vomiting & Diarrhea hydrocodone bitartrate AdvReac Itching Verified 09/27/18 11:08 [From Lorcet (hydrocodone)] Penicillins AdvReac Nausea & Verified 09/27/18 11:08 Vomiting & Diarrhea tramadol HCl [From Ultram] AdvReac Itching Verified 09/27/18 11:08 Review of Systems ROS Statement: Those systems with pertinent positive or pertinent negative responses have been documented in the HPI. ROS Other: All systems not noted in ROS Statement are negative. Past Medical History Past Medical History: Chest Pain / Angina, Diabetes Mellitus, Fibromyalgia, GERD/Reflux, Hyperlipidemia, Hypertension, Osteoarthritis (OA), Renal Disease, Rheumatoid Arthritis (RA), Thyroid Disorder Additional Past Medical History / Comment(s): BURSITIS, falls, chronic sacral wound(wcc) History of Any Multi-Drug Resistant Organisms: None Reported Past Surgical History: Adenoidectomy, Cholecystectomy, Hysterectomy, Orthopedic Surgery, Tonsillectomy Additional Past Surgical History / Comment(s): 3 RIGHT KNEE SURGERIES AND 2 LEFT TOTAL KNEE REPLACEMENTS SURGERIES. D&C'S. Lap Ignacio-en-Y gastric bypass [place] [address] Zambrano , total hysterectomy for fibroid tumor, tubal ligation Past Anesthesia/Blood Transfusion Reactions: Motion Sickness Additional Past Anesthesia/Blood Transfusion Reaction / Comment(s): Pt received blood in 2013 without reaction. Past Psychological History: No Psychological Hx Reported Smoking Status: Never smoker Past Alcohol Use History: None Reported Past Drug Use History: None Reported - Past Family History Mother Family Medical History: Coronary Artery Disease (CAD) Additional Family Medical History / Comment(s): age 90 of heart failure. Had hx of Parkinsons and Narcolepsy Father Family Medical History: Coronary Artery Disease (CAD) Additional Family Medical History / Comment(s): age 73 of massive heart attack General Exam - General Exam Comments Initial Comments: This is a well-developed well-nourished awake alert oriented 3 female with a [place] Coma Scale of 15 Limitations: no limitations General appearance: alert, in no apparent distress Head exam: Present: atraumatic, normocephalic, normal inspection Eye exam: Present: normal appearance, PERRL, EOMI. Absent: scleral icterus, conjunctival injection, periorbital swelling ENT exam: Present: normal exam, mucous membranes moist Neck exam: Present: normal inspection. Absent: tenderness, meningismus, lymphadenopathy Respiratory exam: Present: normal lung sounds bilaterally. Absent: respiratory distress, wheezes, rales, rhonchi, stridor Cardiovascular Exam: Present: normal rhythm, bradycardia, normal heart sounds. Absent: systolic murmur, diastolic murmur, rubs, gallop, clicks GI/Abdominal exam: Present: soft, normal bowel sounds. Absent: distended, tenderness, guarding, rebound, rigid Extremities exam: Present: normal inspection, full ROM, tenderness (Tennis over both hips more so on the right than the left no step-off no crepitation no shortening or rotation of the lower extremities.), normal capillary refill. Absent: pedal edema, joint swelling, calf tenderness Back exam: Present: normal inspection. Absent: tenderness, CVA tenderness (R), CVA tenderness (L) Neurological exam: Present: alert, oriented X3, CN II-XII intact Psychiatric exam: Present: normal affect, normal mood Skin exam: Present: warm, dry, intact, normal color. Absent: rash Course Vital Signs 09/27/18 10:38 Temperature 98.8 F Pulse Rate 54 L Respiratory 17 Rate Blood Pressure 144/73 O2 Sat by Pulse 98 Oximetry Medical Decision Making - Medical Decision Making The patient was able ambulate with her usual gait she normally uses a walker. She will be discharged to a fracture - Radiology Data Radiology results: report reviewed (I did review the imaging and report no evidence of acute findings.), image reviewed Disposition Clinical Impression: Contusion of right hip Disposition: HOME SELF-CARE Condition: Good Instructions (If sedation given, give patient instructions): Hip Contusion (ED) Is patient prescribed a controlled substance at d/c from ED?: No Referrals: Reji Bartholomew MD [Primary Care Provider] - 1-2 days
--- NOTE | 2018-09-27 11:32 | XR ---
EXAMINATION TYPE: XR Hip Bilateral and AP pelvis DATE OF EXAM: 09/27/2018 COMPARISON: NONE HISTORY: Pelvic pain after fall TECHNIQUE: A single AP view of the pelvis is obtained. Two views of the bilateral hips were obtained. FINDINGS: There is no acute fracture/dislocation evident in the pelvis. The hip and sacroiliac join ts appear symmetric and unremarkable. The overlying soft tissue appears unremarkable. There is an ol d well-corticated left inferior pubic ramus fracture. Two views of bilateral hips show no acute fracture or dislocation. Moderate bilateral femoral acetabu lar arthropathy and degenerative change of the lumbosacral junction are seen. No focal lytic or scler otic lesion seen in either proximal femur. The overlying soft tissue is unremarkable. IMPRESSION: There is no acute fracture or dislocation in the pelvis or either hip. Old well-corticat ed inferior left pubic rami fracture.
[2018-09-27 12:58] VITALS: BP 155/83; PULSE 65; RESP 18; TEMP 98.1
== END 2018-09-27 12:49 | disposition home or self-care (01) ==
LOC: EC 10:37
DX: S70.01XA Contusion of right hip, initial encounter (principal); E11.9 Type 2 diabetes mellitus without complications; K21.9 Gastro-esophageal reflux disease without esophagitis; E78.5 Hyperlipidemia, unspecified; I10 Essential (primary) hypertension; M19.90 Unspecified osteoarthritis, unspecified site; E07.9 Disorder of thyroid, unspecified; Z79.51 Long term (current) use of inhaled steroids; Z79.4 Long term (current) use of insulin; Z79.01 Long term (current) use of anticoagulants; Z79.899 Other long term (current) drug therapy; Z91.048 Other nonmedicinal substance allergy status; Z88.0 Allergy status to penicillin; Z88.8 Allergy status to other drugs, medicaments and biological substances; Z91.018 Allergy to other foods; Z91.030 Bee allergy status; Z88.5 Allergy status to narcotic agent; Z96.652 Presence of left artificial knee joint; Z98.84 Bariatric surgery status; W18.11XA Fall from or off toilet without subsequent striking against object, initial encounter
CPT/HCPCS: 73521; 99283

== ENCOUNTER 2018-11-14 16:59 | Emergency (ER) | payer MEDICARE, BC ==
[2018-11-14] MEDS ORDERED: SODIUM CHLORIDE 0.9% 1,000 ML IV STA (17:10)
[2018-11-14 17:13] VITALS: RESP 16; TEMP 97.9
[2018-11-14 17:45] LABS: Basophils % (A) 0 %; Eosinophils # (A) 0.2 k/uL (0-0.7); Eosinophils % (A) 2 %; HCT 34.4 % (34.0-46.0); HGB 10.8 gm/dL (11.4-16.0); Lymphocytes # (A) 1.2 k/uL (1.0-4.8); Lymphocytes % (A) 13 %; MCH 29.6 pg (25.0-35.0); MCHC 31.6 g/dL (31.0-37.0); MCV 93.9 fL (80.0-100.0); Mean Platelet Volume 7.1; Monocytes # (A) 0.5 k/uL (0-1.0); Monocytes % (A) 5 %; Neutrophils # (A) 6.8 k/uL (1.3-7.7); Neutrophils % (A) 77 %; Platelet Count 324 k/uL (150-450); RBC 3.66 m/uL (3.80-5.40); RDW 13.8 % (11.5-15.5); WBC 8.8 k/uL (3.8-10.6)
[2018-11-14 17:46] LABS: ALT 48 U/L (9-52); AST 46 U/L (14-36); African American GFR (CKD) >90 (>60 ml/min/1.73 sqM); Albumin 3.6 g/dL (3.5-5.0); Alkaline Phosphatase 112 U/L (38-126); Anion Gap 5 mmol/L; Blood Urea Nitrogen 22 mg/dL (7-17); Calcium 9.4 mg/dL (8.4-10.2); Carbon Dioxide 27 mmol/L (22-30); Chloride 103 mmol/L (98-107); Glucose 313 mg/dL (74-99); Magnesium 1.8 mg/dL (1.6-2.3); Phosphorus 3.1 mg/dL (2.5-4.5); Potassium 4.5 mmol/L (3.5-5.1); Sodium 135 mmol/L (137-145); Total Bilirubin 0.2 mg/dL (0.2-1.3); Total Protein 6.4 g/dL (6.3-8.2)
[2018-11-14 17:51] LABS: INR 0.9 (<1.2); Partial Thromboplastin Time 24.6 sec (22.0-30.0); Prothrombin Time 9.8 sec (9.0-12.0)
--- NOTE | 2018-11-14 18:19 | ED ---
Syncope HPI - General Chief Complaint: Dizziness Stated Complaint: Dizziness Time Seen by Provider: 11/14/18 17:10 Source: EMS, RN notes reviewed, old records reviewed Mode of arrival: EMS Limitations: physical limitation - History of Present Illness Initial Comments: This is a 73-year-old female the ER for evaluation. Patient resents today for evaluation of dizziness. No history of CVA, patient does admit history of prior vertigo. States the room does spin around significantly. No headaches. No recent change in medications no travel she no sick contacts. No prior history of similar complaint. Patient symptoms were resolved upon prior to upon arrival to emergency room. Patient has no history of fevers. Patient again states symptoms are resolved, EMS deny patient having complained prior to arrival MD Complaint: other (Vertigo) -: minutes(s) Prodromal Symptoms: none -: second(s) Witnessed: no Current Symptoms: none, vertigo Context: standing up Treatments Prior to Arrival: none - Related Data Home Medications Medication Instructions Recorded Confirmed Bumetanide [BUMEX] 2 mg PO DAILY PRN 10/02/14 11/14/18 Cholecalciferol [Vitamin D3 (25 2,000 unit PO TID 10/02/14 11/14/18 Mcg = 1000 Iu)] Fluticasone Propionate [Flonase 2 spray EA NOSTRIL BID 10/02/14 11/14/18 Allergy Relief] Insulin Detemir (Levemir) [Levemir] 8 unit SQ HS 10/02/14 11/14/18 Pantoprazole Sodium 40 mg PO AC-BRKFST 10/02/14 11/14/18 cycloSPORINE [Restasis] 1 drop BOTH EYES BID 10/02/14 11/14/18 DULoxetine HCL [Cymbalta] 60 mg PO HS 04/16/15 11/14/18 traZODone HCL [Desyrel] 50 mg PO HS 06/06/15 11/14/18 Diclofenac Sodium [Voltaren Gel] 2 gram TOPICAL DAILY PRN 12/16/16 11/14/18 Gabapentin [Neurontin] 100 mg PO AC-BID 12/16/16 11/14/18 Levothyroxine Sodium [Synthroid] 137 mcg PO AC-BRKFST 12/16/16 11/14/18 HYDROcodone/APAP 7.5-325MG [[place] 1 tab PO TID PRN 04/13/17 11/14/18 7.5-325] Loteprednol Etabonate [Lotemax] 1 drop BOTH EYES DAILY 04/13/17 11/14/18 Metoprolol Tartrate [Lopressor] 12.5 mg PO BID 04/13/17 11/14/18 Doxercalciferol [Hectorol] 0.5 mcg PO MOTUWETHFR@2100 07/04/17 11/14/18 Repaglinide [Prandin] 2 mg PO AC-TID 07/04/17 11/14/18 SILVER sulfADIAZINE Cream 1 applic TOPICAL DAILY PRN 07/04/17 11/14/18 [Silvadene 1% Cream] Apixaban [Eliquis] 5 mg PO BID 09/27/18 11/14/18 Diltiazem Cd [Cardizem Cd] 180 mg PO W/SUPPER 09/27/18 11/14/18 Milk Thistle 150 mg PO DAILY 09/27/18 11/14/18 Optive Eye Drop 1 drop BOTH EYES DAILY 09/27/18 11/14/18 Pravastatin Sodium [Pravachol] 20 mg PO AC-SUPPER 09/27/18 11/14/18 glipiZIDE [Glucotrol] 5 mg PO AC-BRKFST 09/27/18 11/14/18 Allergies Allergy/AdvReac Type Severity Reaction Status Date / Time adhesive tape Allergy Rash/Hives Verified 11/14/18 17:40 insect venom Allergy Swelling Verified 11/14/18 17:40 triamcinolone Allergy Unknown Verified 11/14/18 17:40 venom-honey bee Allergy Swelling Verified 11/14/18 17:40 caffeine AdvReac Nausea & Verified 11/14/18 17:40 Vomiting & Diarrhea hydrocodone bitartrate AdvReac Itching Verified 11/14/18 17:40 [From Lorcet (hydrocodone)] Penicillins AdvReac Nausea & Verified 11/14/18 17:40 Vomiting & Diarrhea tramadol HCl [From Ultram] AdvReac Itching Verified 11/14/18 17:40 Review of Systems ROS Statement: Those systems with pertinent positive or pertinent negative responses have been documented in the HPI. ROS Other: All systems not noted in ROS Statement are negative. Past Medical History Past Medical History: Chest Pain / Angina, Diabetes Mellitus, Fibromyalgia, GERD/Reflux, Hyperlipidemia, Hypertension, Osteoarthritis (OA), Renal Disease, Rheumatoid Arthritis (RA), Thyroid Disorder Additional Past Medical History / Comment(s): BURSITIS, falls, chronic sacral wound(wcc) Vertigo History of Any Multi-Drug Resistant Organisms: None Reported Past Surgical History: Adenoidectomy, Cholecystectomy, Hysterectomy, Orthopedic Surgery, Tonsillectomy Additional Past Surgical History / Comment(s): 3 RIGHT KNEE SURGERIES AND 2 LEFT TOTAL KNEE REPLACEMENTS SURGERIES. D&C'S. Lap Ignacio-en-Y gastric [place] [address] Zambrano , total hysterectomy for fibroid tumor, tubal ligation Past Anesthesia/Blood Transfusion Reactions: Motion Sickness Additional Past Anesthesia/Blood Transfusion Reaction / Comment(s): Pt received blood in 2012 without reaction. Past Psychological History: No Psychological Hx Reported Smoking Status: Never smoker Past Alcohol Use History: None Reported Past Drug Use History: None Reported - Past Family History Mother Family Medical History: Coronary Artery Disease (CAD) Additional Family Medical History / Comment(s): age 90 of heart failure. Had hx of Parkinsons and Narcolepsy Father Family Medical History: Coronary Artery Disease (CAD) Additional Family Medical History / Comment(s): age 73 of massive heart attack General Exam Limitations: physical limitation General appearance: alert, in no apparent distress Head exam: Present: atraumatic, normocephalic, normal inspection Eye exam: Present: normal appearance, PERRL, EOMI. Absent: scleral icterus, conjunctival injection, nystagmus, periorbital swelling ENT exam: Present: normal exam, mucous membranes moist Neck exam: Present: normal inspection. Absent: tenderness, meningismus, lymphadenopathy Respiratory exam: Present: normal lung sounds bilaterally. Absent: respiratory distress, wheezes, rales, rhonchi, stridor Cardiovascular Exam: Present: regular rate, normal rhythm, normal heart sounds. Absent: systolic murmur, diastolic murmur, rubs, gallop, clicks GI/Abdominal exam: Present: soft, normal bowel sounds. Absent: distended, tenderness, guarding, rebound, rigid Extremities exam: Present: normal inspection, full ROM, normal capillary refill. Absent: tenderness, pedal edema, joint swelling, calf tenderness Back exam: Present: normal inspection Neurological exam: Present: alert, oriented X3, CN II-XII intact Psychiatric exam: Present: normal affect, normal mood Skin exam: Present: warm, dry, intact, normal color. Absent: rash Course Vital Signs 11/14/18 11/14/18 11/14/18 17:03 19:28 20:34 Temperature 97.9 F Pulse Rate 58 L 59 L 68 Respiratory 16 16 16 Rate Blood Pressure 178/101 188/87 198/103 O2 Sat by Pulse 98 100 98 Oximetry - Reevaluation(s) Reevaluation #1: 11/14/18 20:49 Medical record is reviewed Reevaluation #2: 11/14/18 20:49 Patient with no nystagmus heel to monae and finger-nose negative EKG Findings - EKG Comments: EKG Findings:: EKG shows sinus rhythm at 61, KS 156, QRS 08, QTc 434 Medical Decision Making - Medical Decision Making 73 female the ER for evaluation. Patient resents today for evaluation regarding dizziness vertigo history of vertigo, patient is able to ambulate without difficulty and can be discharged home - Lab Data Result diagrams: 11/14/18 17:25 11/14/18 17:25 Lab Results 11/14/18 11/14/18 11/14/18 Range/Units 17:25 17:25 17:25 WBC 8.8 (3.8-10.6) k/uL RBC 3.66 L (3.80-5.40) m/uL Hgb 10.8 L (11.4-16.0) gm/dL Hct 34.4 (34.0-46.0) % MCV 93.9 (80.0-100.0) fL MCH 29.6 (25.0-35.0) pg MCHC 31.6 (31.0-37.0) g/dL RDW 13.8 (11.5-15.5) % Plt Count 324 (150-450) k/uL Neutrophils % 77 % Lymphocytes % 13 % Monocytes % 5 % Eosinophils % 2 % Basophils % 0 % Neutrophils # 6.8 (1.3-7.7) k/uL Lymphocytes # 1.2 (1.0-4.8) k/uL Monocytes # 0.5 (0-1.0) k/uL Eosinophils # 0.2 (0-0.7) k/uL Basophils # 0.0 (0-0.2) k/uL PT (9.0-12.0) sec INR (<1.2) APTT (22.0-30.0) sec Sodium 135 L (137-145) mmol/L Potassium 4.5 (3.5-5.1) mmol/L Chloride 103 (98-107) mmol/L Carbon Dioxide 27 (22-30) mmol/L Anion Gap 5 mmol/L BUN 22 H (7-17) mg/dL Creatinine 0.71 (0.52-1.04) mg/dL Est GFR (CKD-EPI)AfAm >90 (>60 ml/min/1.73 sqM) Est GFR (CKD-EPI)NonAf 86 (>60 ml/min/1.73 sqM) Glucose 313 H (74-99) mg/dL Plasma Lactic Acid [place] 1.7 (0.7-2.0) mmol/L Calcium 9.4 (8.4-10.2) mg/dL Phosphorus 3.1 (2.5-4.5) mg/dL Magnesium 1.8 (1.6-2.3) mg/dL Total Bilirubin 0.2 (0.2-1.3) mg/dL AST 46 H (14-36) U/L ALT 48 (9-52) U/L Alkaline Phosphatase 112 (38-126) U/L Troponin I (0.000-0.034) ng/mL Total Protein 6.4 (6.3-8.2) g/dL Albumin 3.6 (3.5-5.0) g/dL Urine Color Urine Appearance (Clear) Urine pH (5.0-8.0) Ur Specific [place] (1.001-1.035) Urine Protein (Negative) Urine Glucose (UA) (Negative) Urine Ketones (Negative) Urine Blood (Negative) Urine Nitrite (Negative) Urine Bilirubin (Negative) Urine Urobilinogen (<2.0) mg/dL Ur Leukocyte Esterase (Negative) Urine RBC (0-5) /hpf Urine WBC (0-5) /hpf Urine Bacteria (None) /hpf 11/14/18 11/14/18 11/14/18 Range/Units 17:25 17:25 18:30 WBC (3.8-10.6) k/uL RBC (3.80-5.40) m/uL Hgb (11.4-16.0) gm/dL Hct (34.0-46.0) % MCV (80.0-100.0) fL MCH (25.0-35.0) pg MCHC (31.0-37.0) g/dL RDW (11.5-15.5) % Plt Count (150-450) k/uL Neutrophils % % Lymphocytes % % Monocytes % % Eosinophils % % Basophils % % Neutrophils # (1.3-7.7) k/uL Lymphocytes # (1.0-4.8) k/uL Monocytes # (0-1.0) k/uL Eosinophils # (0-0.7) k/uL Basophils # (0-0.2) k/uL PT 9.8 (9.0-12.0) sec INR 0.9 (<1.2) APTT 24.6 (22.0-30.0) sec Sodium (137-145) mmol/L Potassium (3.5-5.1) mmol/L Chloride (98-107) mmol/L Carbon Dioxide (22-30) mmol/L Anion Gap mmol/L BUN (7-17) mg/dL Creatinine (0.52-1.04) mg/dL Est GFR (CKD-EPI)AfAm (>60 ml/min/1.73 sqM) Est GFR (CKD-EPI)NonAf (>60 ml/min/1.73 sqM) Glucose (74-99) mg/dL Plasma Lactic Acid [place] (0.7-2.0) mmol/L Calcium (8.4-10.2) mg/dL Phosphorus (2.5-4.5) mg/dL Magnesium (1.6-2.3) mg/dL Total Bilirubin (0.2-1.3) mg/dL AST (14-36) U/L ALT (9-52) U/L Alkaline Phosphatase (38-126) U/L Troponin I <0.012 (0.000-0.034) ng/mL Total Protein (6.3-8.2) g/dL Albumin (3.5-5.0) g/dL Urine Color Light Yellow Urine Appearance Clear (Clear) Urine pH 6.5 (5.0-8.0) Ur Specific [place] 1.009 (1.001-1.035) Urine Protein 1+ H (Negative) Urine Glucose (UA) 4+ H (Negative) Urine Ketones Negative (Negative) Urine Blood Negative (Negative) Urine Nitrite Negative (Negative) Urine Bilirubin Negative (Negative) Urine Urobilinogen <2.0 (<2.0) mg/dL Ur Leukocyte Esterase Small H (Negative) Urine RBC 1 (0-5) /hpf Urine WBC 6 H (0-5) /hpf Urine Bacteria Occasional H (None) /hpf - Radiology Data Radiology results: report reviewed (CT brain chest x-rays negative for acute disease), image reviewed Disposition Clinical Impression: Benign paroxysmal positional vertigo Disposition: HOME SELF-CARE Condition: Good Instructions (If sedation given, give patient instructions): Vertigo (ED) Is patient prescribed a controlled substance at d/c from ED?: No Referrals: Reji Bartholomew MD [Primary Care Provider] - 1-2 days
[2018-11-14 18:42] LABS: Appearance,Urine Clear (Clear); Bacteria,Urine Occasional /hpf; Bilirubin,Urine Negative (Negative); Blood,Urine Negative (Negative); Color,Urine Light Yellow; Glucose,Urine (UA) 4+ (Negative); Ketones,Urine Negative (Negative); Leukocyte Esterase,Urine Small (Negative); Nitrite,Urine Negative (Negative); PH, Urine 6.5 (5.0-8.0); Protein,Urine 1+ (Negative); RBC,Urine 1 /hpf (0-5); Specific Gravity,Urine 1.009 (1.001-1.035); Urobilinogen,Urine <2.0 mg/dL (<2.0); WBC,Urine 6 /hpf (0-5)
--- NOTE | 2018-11-14 18:58 | CT ---
EXAMINATION: CT brain wo con DATE AND TIME: 11/14/2018 6:45 PM CLINICAL INDICATION: PHH; weakness TECHNIQUE: Standard departmental protocol.; 1129.4; COMPARISON: CT 02/12/2018 FINDINGS: The calvarium is intact. There is no intracranial hemorrhage. There is no intracranial mass or mass effect. No definite new intra-axial or extra-axial attenuation defect. The paranasal sinuses, middle ear cavities, and mastoid sinus air cells are clear. The orbits are unremarkable. IMPRESSION: NO ACUTE PROCESS.
--- NOTE | 2018-11-14 19:18 | XR ---
EXAMINATION: XR chest 2V DATE AND TIME: 11/14/2018 6:44 PM CLINICAL INDICATION: PHH; Weakness TECHNIQUE: Departmental protocol COMPARISON: 02/12/2018 FINDINGS: The lungs are clear. The pleural spaces are negative. The cardiac silhouette is mild moderately enlarged. The remainder of the mediastinal silhouette is un remarkable. The skeletal structures and soft tissues are negative for acute findings. IMPRESSION: NO ACUTE PROCESS.
[2018-11-14 20:42] VITALS: BP 198/103; PULSE 68
== END 2018-11-14 20:42 | disposition home or self-care (01) ==
LOC: EC 16:59
DX: H81.10 Benign paroxysmal vertigo, unspecified ear (principal); E11.9 Type 2 diabetes mellitus without complications; M79.7 Fibromyalgia; K21.9 Gastro-esophageal reflux disease without esophagitis; E78.5 Hyperlipidemia, unspecified; I10 Essential (primary) hypertension; M19.90 Unspecified osteoarthritis, unspecified site; E07.9 Disorder of thyroid, unspecified; Z88.0 Allergy status to penicillin; Z88.5 Allergy status to narcotic agent; Z88.8 Allergy status to other drugs, medicaments and biological substances; Z91.030 Bee allergy status; Z91.038 Other insect allergy status; Z91.048 Other nonmedicinal substance allergy status; Z79.01 Long term (current) use of anticoagulants; Z79.4 Long term (current) use of insulin; Z79.51 Long term (current) use of inhaled steroids; Z79.890 Hormone replacement therapy; Z79.899 Other long term (current) drug therapy; Z96.652 Presence of left artificial knee joint
CPT/HCPCS: 36415; 70450; 71046; 80053; 81001; 83605; 83735; 84100; 84484; 85025; 85610; 85730; 87086; 93005; 96360; 96361; 99285

== ENCOUNTER 2018-11-25 09:13 | Emergency (ER) | payer MEDICARE, BC ==
[2018-11-25 09:20] LABS: Glucose,Whole Blood 311 mg/dL (75-99)
[2018-11-25 10:34] LABS: Basophils % (A) 0 %; Eosinophils # (A) 0.2 k/uL (0-0.7); Eosinophils % (A) 2 %; HGB 11.7 gm/dL (11.4-16.0); Lymphocytes # (A) 1.3 k/uL (1.0-4.8); Lymphocytes % (A) 14 %; MCH 29.4 pg (25.0-35.0); MCHC 31.6 g/dL (31.0-37.0); MCV 93.1 fL (80.0-100.0); Monocytes # (A) 0.7 k/uL (0-1.0); Monocytes % (A) 8 %; Neutrophils # (A) 6.4 k/uL (1.3-7.7); Neutrophils % (A) 73 %; Platelet Count 360 k/uL (150-450); RBC 3.97 m/uL (3.80-5.40); RDW 13.2 % (11.5-15.5); WBC 8.8 k/uL (3.8-10.6)
[2018-11-25 10:36] LABS: INR 0.9 (<1.2); Partial Thromboplastin Time 25.2 sec (22.0-30.0)
[2018-11-25 10:44] LABS: African American GFR (CKD) 56 (>60 ml/min/1.73 sqM); Albumin 4.2 g/dL (3.5-5.0); Anion Gap 8 mmol/L; Blood Urea Nitrogen 45 mg/dL (7-17); Calcium 9.9 mg/dL (8.4-10.2); Carbon Dioxide 31 mmol/L (22-30); Chloride 96 mmol/L (98-107); Glucose 333 mg/dL (74-99); Sodium 135 mmol/L (137-145); Total Bilirubin 0.5 mg/dL (0.2-1.3); Total Protein 7.9 g/dL (6.3-8.2)
[2018-11-25 10:58] LABS: ALT 42 U/L (9-52); AST 49 U/L (14-36); Alkaline Phosphatase 118 U/L (38-126); Magnesium 2.1 mg/dL (1.6-2.3)
[2018-11-25] MEDS ORDERED: SODIUM CHLORIDE 0.9% 1,000 ML IV ONE (11:17)
--- NOTE | 2018-11-25 11:43 | ED ---
General Adult HPI - General Chief complaint: Recheck/Abnormal Lab/Rx Stated complaint: high blood sugar Time Seen by Provider: 11/25/18 09:49 Source: EMS Mode of arrival: EMS Limitations: no limitations - History of Present Illness Initial comments: 73-year-old female with history of fibromyalgia, diabetes, high blood pressure residing today for elevated blood glucose. Family also states he did not feel she has been acting normal since the of her son, who in the home. Patient family states she was sobbing in the mirror and would not stop today. They states she has had memory changes since her son , more foregetful for months, increasing at night. Patient AAOx3 on arrival. Patient family was concerned that her blood glucose was elevated today and patient was not acting like herself, so they presented to the ER for evaluation. Upon arrival patient has no complaints. She appears well, no acute distress. Patient denies any recent fever, chills, shortness of breath, chest pain, back pain, abdominal pain, nausea or vomiting, numbness or tingling, dysuria or hematuria, constipation or diarrhea, headaches or visual changes, suicidal ideations or any other complaints. - Related Data Home Medications Medication Instructions Recorded Confirmed Bumetanide [BUMEX] 1 mg PO BID 10/02/14 11/25/18 Cholecalciferol [Vitamin D3 (25 2,000 unit PO TID 10/02/14 11/25/18 Mcg = 1000 Iu)] Fluticasone Propionate [Flonase 2 spray EA NOSTRIL BID 10/02/14 11/25/18 Allergy Relief] Insulin Detemir (Levemir) [Levemir] 5 unit SQ HS 10/02/14 11/25/18 Pantoprazole Sodium 40 mg PO AC-BRKFST 10/02/14 11/25/18 cycloSPORINE [Restasis] 1 drop BOTH EYES BID 10/02/14 11/25/18 DULoxetine HCL [Cymbalta] 60 mg PO HS 04/16/15 11/25/18 traZODone HCL [Desyrel] 50 mg PO HS 06/06/15 11/25/18 Diclofenac Sodium [Voltaren Gel] 2 gram TOPICAL DAILY PRN 12/16/16 11/25/18 Gabapentin [Neurontin] 100 mg PO AC-BID 12/16/16 11/25/18 Levothyroxine Sodium [Synthroid] 137 mcg PO AC-BRKFST 12/16/16 11/25/18 HYDROcodone/APAP 7.5-325MG [[place] 1 tab PO TID PRN 04/13/17 11/25/18 7.5-325] Loteprednol Etabonate [Lotemax] 1 drop BOTH EYES DAILY 04/13/17 11/25/18 Metoprolol Tartrate [Lopressor] 12.5 mg PO BID 04/13/17 11/25/18 Doxercalciferol [Hectorol] 0.5 mcg PO MOTUWETHFR@2100 07/04/17 11/25/18 Repaglinide [Prandin] 2 mg PO AC-TID 07/04/17 11/25/18 SILVER sulfADIAZINE Cream 1 applic TOPICAL DAILY PRN 07/04/17 11/25/18 [Silvadene 1% Cream] Apixaban [Eliquis] 5 mg PO BID 09/27/18 11/25/18 Diltiazem Cd [Cardizem Cd] 180 mg PO W/SUPPER 09/27/18 11/25/18 Milk Thistle 150 mg PO DAILY 09/27/18 11/25/18 Optive Eye Drop 1 drop BOTH EYES DAILY 09/27/18 11/25/18 Pravastatin Sodium [Pravachol] 20 mg PO AC-SUPPER 09/27/18 11/25/18 glipiZIDE [Glucotrol] 5 mg PO BID 09/27/18 11/25/18 Cephalexin [Keflex] 500 mg PO Q6HR 11/25/18 11/25/18 Allergies Allergy/AdvReac Type Severity Reaction Status Date / Time adhesive tape Allergy Rash/Hives Verified 11/25/18 09:24 insect venom Allergy Swelling Verified 11/25/18 09:24 triamcinolone Allergy Unknown Verified 11/25/18 09:24 venom-honey bee Allergy Swelling Verified 11/25/18 09:24 caffeine AdvReac Nausea & Verified 11/25/18 09:24 Vomiting & Diarrhea hydrocodone bitartrate AdvReac Itching Verified 11/25/18 09:24 [From Lorcet (hydrocodone)] Penicillins AdvReac Nausea & Verified 11/25/18 09:24 Vomiting & Diarrhea tramadol HCl [From Ultram] AdvReac Itching Verified 11/25/18 09:24 Review of Systems ROS Statement: Those systems with pertinent positive or pertinent negative responses have been documented in the HPI. ROS Other: All systems not noted in ROS Statement are negative. Past Medical History Past Medical History: Chest Pain / Angina, Diabetes Mellitus, Fibromyalgia, GERD/Reflux, Hyperlipidemia, Hypertension, Osteoarthritis (OA), Renal Disease, Rheumatoid Arthritis (RA), Thyroid Disorder Additional Past Medical History / Comment(s): BURSITIS, falls, chronic sacral wound(wcc) Vertigo History of Any Multi-Drug Resistant Organisms: None Reported Past Surgical History: Adenoidectomy, Cholecystectomy, Hysterectomy, Orthopedic Surgery, Tonsillectomy Additional Past Surgical History / Comment(s): 3 RIGHT KNEE SURGERIES AND 2 LEFT TOTAL KNEE REPLACEMENTS SURGERIES. D&C'S. Lap Ignacio-en-Y gastric bypass [place] [address] Zambrano , total hysterectomy for fibroid tumor, tubal ligation Past Anesthesia/Blood Transfusion Reactions: Motion Sickness Additional Past Anesthesia/Blood Transfusion Reaction / Comment(s): Pt received blood in 2012 without reaction. Past Psychological History: No Psychological Hx Reported Smoking Status: Never smoker Past Alcohol Use History: None Reported Past Drug Use History: None Reported - Past Family History Mother Family Medical History: Coronary Artery Disease (CAD) Additional Family Medical History / Comment(s): age 90 of heart failure. Had hx of Parkinsons and Narcolepsy Father Family Medical History: Coronary Artery Disease (CAD) Additional Family Medical History / Comment(s): age 73 of massive heart attack General Exam - General Exam Comments Initial Comments: General: The patient is awake and alert, in no distress, and does not appear acutely ill. Eye: +3 mm pupils are equal, round and reactive to light, extra-ocular movements are intact. No nystagmus. There is normal conjunctiva bilaterally. No signs of icterus. Ears, nose, mouth and throat: There are moist mucous membranes and no oral lesions. Neck: The neck is supple, there is no tenderness or JVD. Cardiovascular: There is a regular rate and rhythm. No murmur, rub or gallop is appreciated. Respiratory: Lungs are clear to auscultation, respirations are non-labored, breath sounds are equal. No wheezes, stridor, rales, or rhonchi. Gastrointestinal: Soft, non-distended, non-tender abdomen without masses or organomegaly noted. There is no rebound or guarding present. No CVA tenderness. Bowel sounds are unremarkable. Musculoskeletal: Normal ROM, no tenderness. Strength 5/5 of the upper extremity is and lower extremities equal comparison bilaterally. Sensation intact. Radila pulses equal bilaterally 2+. Neurological: A&O x 3. CN II-XII intact, There are no obvious motor or sensory deficits. Coordination appears grossly intact. Speech is normal. No pronator drift. Ambulatory without difficulty no signs of ataxia smooth and coronary [id number] finger to nose. Skin: Skin is warm and dry and no rashes or lesions are noted. Psychiatric: Cooperative, appropriate mood & affect, normal judgment. Limitations: no limitations Course Vital Signs 11/25/18 11/25/18 11/25/18 09:14 09:30 10:00 Temperature 98.5 F Pulse Rate 54 L 48 L 51 L Respiratory 18 16 7 L Rate Blood Pressure 163/68 163/68 158/65 O2 Sat by Pulse 100 97 100 Oximetry 11/25/18 11/25/18 11/25/18 10:30 11:00 13:34 Temperature Pulse Rate 51 L 63 65 Respiratory 9 L 12 18 Rate Blood Pressure 172/89 173/76 143/75 O2 Sat by Pulse 98 94 L 98 Oximetry EKG Findings - EKG Comments: EKG Findings:: Ventricular rate 54 bpm, SC interval 158 ms, QRS administration 114 ms, QT/QTC 474/449. This is sinus bradycardia with premature atrial complexes left axis noted. No ST elevation or depression. Premature atrial co mplex is more in the pattern of bigeminy. I reviewed EKG with Dr. Zuñiga. Medical Decision Making - Medical Decision Making 73-year-old female presented for elevated blood glucose. Patient blood glucose elevated on arrival. Patient given IV fluids. Family felt patient has had memory changes over the past few months. Denies any focal neurological deficits. CT of the brain was obtained revealing no acute changes. Patient had no focal neurological deficits on examination. Patient is currently being treated for urinary tract infection that was recently diagnosed. Urinalysis reveals findings consistent with a mild urinary tract infection. Patient will be instructed to continue antibiotic for treatment and follow-up with primary care provider. Otherwise laboratory studies appear near baseline. There is a slight increase in creatinine. Chest x-ray within normal limits. EKG no acute findings. Patient was denied by EPS nurse give her family stating they feel patient has been crying uncontrollably not acting like herself. They recommended outpatient counseling and feel patient be best at home with her family. Patient denies any suicidal ideation. After discussing the case in detail with attending provider Dr. Zuñiga reviewed EKG and laboratory studies patient will be discharged home patient is requesting discharge home and is agreeable care. At this time. Patient was picked up by her . - Lab Data Result diagrams: 11/25/18 09:24 11/25/18 09:24 Lab Results 11/25/18 11/25/18 11/25/18 Range/Units 09:18 09:24 09:24 WBC 8.8 (3.8-10.6) k/uL RBC 3.97 (3.80-5.40) m/uL Hgb 11.7 (11.4-16.0) gm/dL Hct 37.0 (34.0-46.0) % MCV 93.1 (80.0-100.0) fL MCH 29.4 (25.0-35.0) pg MCHC 31.6 (31.0-37.0) g/dL RDW 13.2 (11.5-15.5) % Plt Count 360 (150-450) k/uL Neutrophils % 73 % Lymphocytes % 14 % Monocytes % 8 % Eosinophils % 2 % Basophils % 0 % Neutrophils # 6.4 (1.3-7.7) k/uL Lymphocytes # 1.3 (1.0-4.8) k/uL Monocytes # 0.7 (0-1.0) k/uL Eosinophils # 0.2 (0-0.7) k/uL Basophils # 0.0 (0-0.2) k/uL PT (9.0-12.0) sec INR (<1.2) APTT (22.0-30.0) sec Sodium 135 L (137-145) mmol/L Potassium (3.5-5.1) mmol/L Chloride 96 L (98-107) mmol/L Carbon Dioxide 31 H (22-30) mmol/L Anion Gap 8 mmol/L BUN 45 H (7-17) mg/dL Creatinine 1.14 H (0.52-1.04) mg/dL Est GFR (CKD-EPI)AfAm 56 (>60 ml/min/1.73 sqM) Est GFR (CKD-EPI)NonAf 48 (>60 ml/min/1.73 sqM) Glucose 333 H (74-99) mg/dL POC Glucose (mg/dL) 311 H (75-99) mg/dL POC Glu Web Project Manager ID Kelly Ramirez Plasma Lactic Acid Chucky (0.7-2.0) mmol/L Calcium 9.9 (8.4-10.2) mg/dL Magnesium 2.1 (1.6-2.3) mg/dL Total Bilirubin 0.5 (0.2-1.3) mg/dL AST 49 H (14-36) U/L ALT 42 (9-52) U/L Alkaline Phosphatase 118 (38-126) U/L Troponin I (0.000-0.034) ng/mL NT-Pro-B Natriuret Pep pg/mL Total Protein 7.9 (6.3-8.2) g/dL Albumin 4.2 (3.5-5.0) g/dL Urine Color Urine Appearance (Clear) Urine pH (5.0-8.0) Ur Specific Hiller (1.001-1.035) Urine Protein (Negative) Urine Glucose (UA) (Negative) Urine Ketones (Negative) Urine Blood (Negative) Urine Nitrite (Negative) Urine Bilirubin (Negative) Urine Urobilinogen (<2.0) mg/dL Ur Leukocyte Esterase (Negative) Urine WBC (0-5) /hpf Ur Squamous Epith Cells (0-4) /hpf Hyaline Casts (0-2) /lpf Urine Mucus (None) /hpf Acetone, Qual Negative (Negative) 11/25/18 11/25/18 11/25/18 Range/Units 09:24 09:24 09:24 WBC (3.8-10.6) k/uL RBC (3.80-5.40) m/uL Hgb (11.4-16.0) gm/dL Hct (34.0-46.0) % MCV (80.0-100.0) fL MCH (25.0-35.0) pg MCHC (31.0-37.0) g/dL RDW (11.5-15.5) % Plt Count (150-450) k/uL Neutrophils % % Lymphocytes % % Monocytes % % Eosinophils % % Basophils % % Neutrophils # (1.3-7.7) k/uL Lymphocytes # (1.0-4.8) k/uL Monocytes # (0-1.0) k/uL Eosinophils # (0-0.7) k/uL Basophils # (0-0.2) k/uL PT 10.0 (9.0-12.0) sec INR 0.9 (<1.2) APTT 25.2 (22.0-30.0) sec Sodium (137-145) mmol/L Potassium (3.5-5.1) mmol/L Chloride (98-107) mmol/L Carbon Dioxide (22-30) mmol/L Anion Gap mmol/L BUN (7-17) mg/dL Creatinine (0.52-1.04) mg/dL Est GFR (CKD-EPI)AfAm (>60 ml/min/1.73 sqM) Est GFR (CKD-EPI)NonAf (>60 ml/min/1.73 sqM) Glucose (74-99) mg/dL POC Glucose (mg/dL) (75-99) mg/dL POC Glu Web Project Manager ID Plasma Lactic Acid Chucky 1.2 (0.7-2.0) mmol/L Calcium (8.4-10.2) mg/dL Magnesium (1.6-2.3) mg/dL Total Bilirubin (0.2-1.3) mg/dL AST (14-36) U/L ALT (9-52) U/L Alkaline Phosphatase (38-126) U/L Troponin I <0.012 (0.000-0.034) ng/mL NT-Pro-B Natriuret Pep pg/mL Total Protein (6.3-8.2) g/dL Albumin (3.5-5.0) g/dL Urine Color Urine Appearance (Clear) Urine pH (5.0-8.0) Ur Specific Hiller (1.001-1.035) Urine Protein (Negative) Urine Glucose (UA) (Negative) Urine Ketones (Negative) Urine Blood (Negative) Urine Nitrite (Negative) Urine Bilirubin (Negative) Urine Urobilinogen (<2.0) mg/dL Ur Leukocyte Esterase (Negative) Urine WBC (0-5) /hpf Ur Squamous Epith Cells (0-4) /hpf Hyaline Casts (0-2) /lpf Urine Mucus (None) /hpf Acetone, Qual (Negative) 11/25/18 11/25/18 11/25/18 Range/Units 09:24 12:50 15:32 WBC (3.8-10.6) k/uL RBC (3.80-5.40) m/uL Hgb (11.4-16.0) gm/dL Hct (34.0-46.0) % MCV (80.0-100.0) fL MCH (25.0-35.0) pg MCHC (31.0-37.0) g/dL RDW (11.5-15.5) % Plt Count (150-450) k/uL Neutrophils % % Lymphocytes % % Monocytes % % Eosinophils % % Basophils % % Neutrophils # (1.3-7.7) k/uL Lymphocytes # (1.0-4.8) k/uL Monocytes # (0-1.0) k/uL Eosinophils # (0-0.7) k/uL Basophils # (0-0.2) k/uL PT (9.0-12.0) sec INR (<1.2) APTT (22.0-30.0) sec Sodium (137-145) mmol/L Potassium (3.5-5.1) mmol/L Chloride (98-107) mmol/L Carbon Dioxide (22-30) mmol/L Anion Gap mmol/L BUN (7-17) mg/dL Creatinine (0.52-1.04) mg/dL Est GFR (CKD-EPI)AfAm (>60 ml/min/1.73 sqM) Est GFR (CKD-EPI)NonAf (>60 ml/min/1.73 sqM) Glucose (74-99) mg/dL POC Glucose (mg/dL) 259 H (75-99) mg/dL POC Glu Web Project Manager ID [place], Subha Plasma Lactic Acid Chucky (0.7-2.0) mmol/L Calcium (8.4-10.2) mg/dL Magnesium (1.6-2.3) mg/dL Total Bilirubin (0.2-1.3) mg/dL AST (14-36) U/L ALT (9-52) U/L Alkaline Phosphatase (38-126) U/L Troponin I (0.000-0.034) ng/mL NT-Pro-B Natriuret Pep 356 pg/mL Total Protein (6.3-8.2) g/dL Albumin (3.5-5.0) g/dL Urine Color Light Yellow Urine Appearance Clear (Clear) Urine pH 6.5 (5.0-8.0) Ur Specific Hiller 1.014 (1.001-1.035) Urine Protein 1+ H (Negative) Urine Glucose (UA) 3+ H (Negative) Urine Ketones Negative (Negative) Urine Blood Negative (Negative) Urine Nitrite Negative (Negative) Urine Bilirubin Negative (Negative) Urine Urobilinogen <2.0 (<2.0) mg/dL Ur Leukocyte Esterase Small H (Negative) Urine WBC 6 H (0-5) /hpf Ur Squamous Epith Cells 1 (0-4) /hpf Hyaline Casts 1 (0-2) /lpf Urine Mucus Rare H (None) /hpf Acetone, Qual (Negative) Disposition Clinical Impression: UTI (urinary tract infection), Depression, Blood glucose elevated Disposition: HOME SELF-CARE Condition: Good Instructions (If sedation given, give patient instructions): Urinary Tract Infection in Women (ED), Depression (ED), Diabetes and Nutrition (ED) Additional Instructions: Please use medication as discussed. Please follow-up with family doctor in the next 2 days.. Please return to emergency room if the symptoms increase or worsen or for any other concerns. Is patient prescribed a controlled substance at d/c from ED?: No Referrals: Reji Bartholomew MD [Primary Care Provider] - 1-2 days Time of Disposition: 15:39
--- NOTE | 2018-11-25 12:48 | CT ---
EXAMINATION TYPE: CT brain wo con DATE OF EXAM: 11/25/2018 COMPARISON: Previous study dated 11/14/2018 HISTORY: elevated blood sugar, weakness CT DLP: Not supplied mGycm Automated exposure control for dose reduction was used. FINDINGS: There are mild, generalized changes of sulcal prominence and ventriculomegaly, compatible with mild a trophic change. There is diffuse periventricular white matter lucency, compatible small vessel ischem ic change. There is no acute focal lesion, mass effect or midline shift identified. I do not see evid ence of intracranial blood Visualized portions of the paranasal sinuses and mastoids are clear. The bony calvarium is intact. IMPRESSION: 1. NO ACUTE INTRACRANIAL ABNORMALITY. 2. MILD ATROPHIC CHANGE. 3. CHRONIC WHITE MATTER ISCHEMIC CHANGE.
[2018-11-25 13:07] LABS: Appearance,Urine Clear (Clear); Bilirubin,Urine Negative (Negative); Blood,Urine Negative (Negative); Color,Urine Light Yellow; Glucose,Urine (UA) 3+ (Negative); Hyaline Casts,Urine 1 /lpf (0-2); Ketones,Urine Negative (Negative); Leukocyte Esterase,Urine Small (Negative); Mucus,Urine Rare /hpf; Nitrite,Urine Negative (Negative); PH, Urine 6.5 (5.0-8.0); Protein,Urine 1+ (Negative); Specific Gravity,Urine 1.014 (1.001-1.035); Squamous Epithelial Cell,Urine 1 /hpf (0-4); Urobilinogen,Urine <2.0 mg/dL (<2.0); WBC,Urine 6 /hpf (0-5)
[2018-11-25 13:34] VITALS: BP 143/75; RESP 18
--- NOTE | 2018-11-25 14:08 | XR ---
EXAMINATION TYPE: XR chest 2V DATE OF EXAM: 11/25/2018 COMPARISON: 11/14/2018 HISTORY: Weakness TECHNIQUE: Frontal and lateral views of the chest are obtained. FINDINGS: There is no heart failure nor confluent pneumonic infiltrate. Costophrenic angles are luis angel r. Bony thorax is intact. IMPRESSION: No active cardiopulmonary disease. No change.
[2018-11-25 15:35] LABS: Glucose,Whole Blood 259 mg/dL (75-99)
[2018-11-25 16:01] VITALS: PULSE 72; TEMP 98.3
== END 2018-11-25 16:01 | disposition home or self-care (01) ==
LOC: EC 09:13
DX: E11.65 Type 2 diabetes mellitus with hyperglycemia (principal); N39.0 Urinary tract infection, site not specified; F32.9 Major depressive disorder, single episode, unspecified; E78.5 Hyperlipidemia, unspecified; E07.9 Disorder of thyroid, unspecified; I10 Essential (primary) hypertension; K21.9 Gastro-esophageal reflux disease without esophagitis; Z79.01 Long term (current) use of anticoagulants; Z79.4 Long term (current) use of insulin; Z79.899 Other long term (current) drug therapy; Z88.0 Allergy status to penicillin; Z79.890 Hormone replacement therapy; Z88.5 Allergy status to narcotic agent; Z88.6 Allergy status to analgesic agent; Z91.030 Bee allergy status; Z91.048 Other nonmedicinal substance allergy status; Z88.8 Allergy status to other drugs, medicaments and biological substances; Z98.84 Bariatric surgery status; Z96.653 Presence of artificial knee joint, bilateral; Z98.51 Tubal ligation status
CPT/HCPCS: 36415; 70450; 71046; 80053; 81001; 82009; 83605; 83735; 83880; 84484; 85025; 85610; 85730; 93005; 96360; 99285

== ENCOUNTER → 2019-03-13 | Outpatient (CLI) | payer MEDICARE, BC ==
[2019-03-13 11:45] LABS: Basophils % (A) 0 %; Eosinophils # (A) 0.2 k/uL (0-0.7); Eosinophils % (A) 3 %; HCT 33.7 % (34.0-46.0); Hypochromasia Moderate; Lymphocytes # (A) 1.4 k/uL (1.0-4.8); Lymphocytes % (A) 15 %; MCH 27.7 pg (25.0-35.0); MCHC 29.6 g/dL (31.0-37.0); MCV 93.7 fL (80.0-100.0); Monocytes # (A) 0.6 k/uL (0-1.0); Monocytes % (A) 6 %; Neutrophils # (A) 6.9 k/uL (1.3-7.7); Neutrophils % (A) 74 %; Platelet Count 379 k/uL (150-450); RBC 3.59 m/uL (3.80-5.40); RDW 13.7 % (11.5-15.5); WBC 9.4 k/uL (3.8-10.6)
[2019-03-13 11:47] LABS: Appearance,Urine Cloudy (Clear); Bilirubin,Urine Negative (Negative); Blood,Urine Moderate (Negative); Color,Urine Yellow; Glucose,Urine (UA) Negative (Negative); Hyaline Casts,Urine 5 /lpf (0-2); Ketones,Urine Negative (Negative); Leukocyte Esterase,Urine Large (Negative); Mucus,Urine Rare /hpf; Nitrite,Urine Negative (Negative); Protein,Urine 3+ (Negative); RBC,Urine >182 /hpf (0-5); Specific Gravity,Urine 1.028 (1.001-1.035); Squamous Epithelial Cell,Urine 8 /hpf (0-4); WBC,Urine 36 /hpf (0-5)
[2019-03-13 17:40] LABS: Iron Saturation 8.06 (12.00-45.00)
[2019-03-13 17:49] LABS: African American GFR (CKD) 58.1 (60.0-200.0); Albumin 4.1 g/dL (3.80-4.90); Albumin/Globulin Ratio 1.86 (1.60-3.17); Anion Gap 6.5 mmol/L (4.00-12.00); BUN/Creat Ratio 29.09 Ratio (12.00-20.00); Calcium 9.2 mg/dL (8.7-10.3); Carbon Dioxide 27.5 mmol/L (21.6-31.8); Chol/HDL Ratio 2.21; Globulin 2.2 g/dL (1.6-3.3); Magnesium 1.8 mg/dL (1.5-2.4); Phosphorus 4.3 mg/dL (2.4-5.1); Potassium 4.7 mmol/L (3.5-5.5); Total Bilirubin 0.2 mg/dL (0.3-1.2); Total Protein 6.3 g/dL (6.2-8.2); Uric Acid 4.4 mg/dL (2.9-7.7); Vitamin D 25 Hydroxy 37.8 ng/mL (30.0-100.0)
[2019-03-13 17:52] LABS: Ferritin 12.5 ng/mL (10.0-291.0)
[2019-03-13 19:31] LABS: Creatinine,Urine Random 189.6 mg/dL
[2019-03-13 19:35] LABS: Total Protein,Urine Random 467.3 mg/dL (0.0-13.5)
[2019-03-13 23:09] LABS: Hemoglobin A1C 9.1 % (4.0-6.0)
[2019-03-14 13:49] LABS: Zinc, Serum 57 ug/dL (60-130)
[2019-03-14 14:44] LABS: Vit B1(Thiamine) 70 ug/L (38-122)
[2019-03-15 09:50] LABS: Methylmalonic Acid 0.59 umol/L (<0.40)
== END | disposition home or self-care (01) ==
LOC: LABWHC1 10:19
PROVIDERS: ATTEND Internal Medicine Nephrology
DX: N39.0 Urinary tract infection, site not specified (principal); N18.3 Chronic kidney disease, stage 3 (moderate); E11.65 Type 2 diabetes mellitus with hyperglycemia; R53.83 Other fatigue; E55.9 Vitamin D deficiency, unspecified; N25.81 Secondary hyperparathyroidism of renal origin; M10.9 Gout, unspecified; D63.1 Anemia in chronic kidney disease; R80.9 Proteinuria, unspecified; Z98.84 Bariatric surgery status
CPT/HCPCS: 36415; 80053; 80061; 81001; 82306; 82525; 82570; 82607; 82728; 82747; 83036; 83540; 83550; 83735; 83921; 83970; 84100; 84134; 84156; 84425; 84443; 84550; 84630; 85025

== ENCOUNTER 2019-04-04 23:26 | Emergency (ER) | payer MEDICARE, BC ==
[2019-04-04 23:33] VITALS: RESP 18; TEMP 98.4
[2019-04-04] MEDS ORDERED: HYDROmorphone 1 MG/ML 1 ML SYRINGE IVP STA (23:51)
--- NOTE | 2019-04-05 00:02 | ED ---
Extremity Problem HPI - General Source: patient, RN notes reviewed Mode of arrival: EMS Limitations: no limitations - History of Present Illness MD Complaint: extremity pain <Brodie Parikh - Last Filed: 04/05/19 01:04> <Deyanira Belcher - Last Filed: 04/05/19 03:17> - General Chief complaint: Extremity Problem,Nontraumatic Stated complaint: Hip pain Time Seen by Provider: 04/04/19 23:32 - History of Present Illness Initial comments: This is a 73-year-old female with a history of chronic low back and hip pain who states she's had increasing pain over last month or so and get really bad tonight 67/10 severity sharp and achy in nature radiating down her lateral right leg no loss of function no urinary or fecal incontinence. He states is an exacerbation of her chronic pain per her and made been triggered when she was pulled by a small dog about a month ago. She has tried Tylenol she does use hydrocodone without much relief tonight no fevers chills sweats or other symptomatology (Brodie Parikh) - Related Data Home Medications Medication Instructions Recorded Confirmed Bumetanide [BUMEX] 1 mg PO BID 10/02/14 04/03/19 Cholecalciferol [Vitamin D3 (25 2,000 unit PO TID 10/02/14 04/03/19 Mcg = 1000 Iu)] Fluticasone Propionate [Flonase 2 spray EA NOSTRIL BID 10/02/14 04/03/19 Allergy Relief] Pantoprazole Sodium 40 mg PO AC-BRKFST 10/02/14 04/03/19 cycloSPORINE [Restasis] 1 drop BOTH EYES BID 10/02/14 04/03/19 DULoxetine HCL [Cymbalta] 60 mg PO HS 04/16/15 04/03/19 traZODone HCL [Desyrel] 50 mg PO HS 06/06/15 04/03/19 Diclofenac Sodium [Voltaren Gel] 2 gram TOPICAL DAILY PRN 12/16/16 04/03/19 Gabapentin [Neurontin] 100 mg PO AC-BID 12/16/16 04/03/19 Levothyroxine Sodium [Synthroid] 137 mcg PO AC-BRKFST 12/16/16 04/03/19 HYDROcodone/APAP 7.5-325MG [[place] 1 tab PO TID PRN 04/13/17 04/03/19 7.5-325] Loteprednol Etabonate [Lotemax] 1 drop BOTH EYES DAILY 04/13/17 04/03/19 Metoprolol Tartrate [Lopressor] 12.5 mg PO BID 04/13/17 04/03/19 Doxercalciferol [Hectorol] 0.5 mcg PO MOTUWETHFR@2100 07/04/17 04/03/19 Repaglinide [Prandin] 2 mg PO AC-TID 07/04/17 04/03/19 SILVER sulfADIAZINE Cream 1 applic TOPICAL DAILY PRN 07/04/17 04/03/19 [Silvadene 1% Cream] Apixaban [Eliquis] 5 mg PO BID 09/27/18 04/03/19 Milk Thistle 200 mg PO DAILY 09/27/18 04/03/19 Optive Eye Drop 1 drop BOTH EYES DAILY 09/27/18 04/03/19 Pravastatin Sodium [Pravachol] 20 mg PO AC-SUPPER 09/27/18 04/03/19 Acetaminophen [Tylenol] 500 mg PO Q4-6H PRN 04/03/19 04/03/19 Cinnamon Bark [Cinnamon] 250 mg PO BID 04/03/19 04/03/19 Insulin Aspart [NovoLOG Flexpen] 6 units SQ AC-BRKFST 04/03/19 04/03/19 Insulin Aspart [NovoLOG Flexpen] 12 units SQ AC-SUPPER 04/03/19 04/03/19 Insulin Detemir [Levemir Flextouch] 26 units SQ AC-SUPPER 04/03/19 04/03/19 Allergies Allergy/AdvReac Type Severity Reaction Status Date / Time adhesive tape Allergy Rash/Hives Verified 04/04/19 23:28 insect venom Allergy Swelling Verified 04/04/19 23:28 triamcinolone Allergy Unknown Verified 04/04/19 23:28 venom-honey bee Allergy Swelling Verified 04/04/19 23:28 caffeine AdvReac Nausea & Verified 04/04/19 23:28 Vomiting & Diarrhea hydrocodone bitartrate AdvReac Itching Verified 04/04/19 23:28 [From Lorcet (hydrocodone)] Penicillins AdvReac Nausea & Verified 04/04/19 23:28 Vomiting & Diarrhea tramadol HCl [From Ultram] AdvReac Itching Verified 04/04/19 23:28 Review of Systems ROS Other: All systems not noted in ROS Statement are negative. <Brodie Parikh - Last Filed: 04/05/19 01:04> ROS Other: All systems not noted in ROS Statement are negative. <BelcherKimberlyDeyanira P - Last Filed: 04/05/19 03:17> ROS Statement: Those systems with pertinent positive or pertinent negative responses have been documented in the HPI. Past Medical History Past Medical History: Chest Pain / Angina, Diabetes Mellitus, Fibromyalgia, GERD/Reflux, Hyperlipidemia, Hypertension, Osteoarthritis (OA), Renal Disease, Rheumatoid Arthritis (RA), Thyroid Disorder Additional Past Medical History / Comment(s): BURSITIS, falls, chronic sacral wound(wcc) Vertigo, anemia History of Any Multi-Drug Resistant Organisms: None Reported Past Surgical History: Adenoidectomy, Cholecystectomy, Hysterectomy, Orthopedic Surgery, Tonsillectomy Additional Past Surgical History / Comment(s): 3 RIGHT KNEE SURGERIES AND 2 LEFT TOTAL KNEE REPLACEMENTS SURGERIES. D&C'S. Lap Ignacio-en-Y gastric bypass [place] [address] Zambrano , total hysterectomy for fibroid tumor, tubal ligation Past Anesthesia/Blood Transfusion Reactions: Motion Sickness Additional Past Anesthesia/Blood Transfusion Reaction / Comment(s): Pt received blood in 2012 without reaction. Past Psychological History: No Psychological Hx Reported Smoking Status: Never smoker Past Alcohol Use History: None Reported Past Drug Use History: None Reported - Past Family History Mother Family Medical History: Coronary Artery Disease (CAD) Additional Family Medical History / Comment(s): age 90 of heart failure. Had hx of Parkinsons and Narcolepsy Father Family Medical History: Coronary Artery Disease (CAD) Additional Family Medical History / Comment(s): age 73 of massive heart attack <Brodie Parikh - Last Filed: 04/05/19 01:04> General Exam Limitations: no limitations General appearance: alert, anxious Head exam: Present: atraumatic, normocephalic, normal inspection Eye exam: Present: normal appearance, PERRL, EOMI. Absent: scleral icterus, conjunctival injection, periorbital swelling ENT exam: Present: normal exam, mucous membranes moist Neck exam: Present: normal inspection. Absent: tenderness, meningismus, l ymphadenopathy Respiratory exam: Present: normal lung sounds bilaterally. Absent: respiratory distress, wheezes, rales, rhonchi, stridor Cardiovascular Exam: Present: regular rate, normal rhythm, normal heart sounds. Absent: systolic murmur, diastolic murmur, rubs, gallop, clicks GI/Abdominal exam: Present: soft, normal bowel sounds. Absent: distended, tenderness, guarding, rebound, rigid Rectal exam: Present: deferred Extremities exam: Present: normal inspection, tenderness (Tennis palpation of the lateral leg musculature on the right no overt hip pain or pelvis pain to rock some mild gluteal pain and paraspinous muscle pain in the right lumbar region. No step-off or crepitation), normal capillary refill. Absent: pedal edema, joint swelling, calf tenderness Back exam: Present: normal inspection Neurological exam: Present: alert, oriented X3, CN II-XII intact Psychiatric exam: Present: normal affect, normal mood Skin exam: Present: warm, dry, intact, normal color. Absent: rash <Brodie Parikh - Last Filed: 04/05/19 01:04> - General Exam Comments Initial Comments: This is a well-developed well-nourished awake alert oriented 3 female (Brodie Parikh) Course <Brodie Parikh - Last Filed: 04/05/19 01:04> Vital Signs 04/04/19 04/05/19 04/05/19 23:29 01:02 02:40 Temperature 98.4 F Pulse Rate 61 66 61 Respiratory 18 18 18 Rate Blood Pressure 179/82 206/87 171/76 O2 Sat by Pulse 100 95 95 Oximetry - Reevaluation(s) Reevaluation #1: 04/05/19 01:04 The case is endorsed to Dr. Belcher at shift change (Brodie Parikh) Medical Decision Making - Lab Data Result diagrams: 04/05/19 00:20 <Brodie Parikh - Last Filed: 04/05/19 01:04> - Lab Data Result diagrams: 04/05/19 00:20 04/05/19 00:20 <Deyanira Belcher - Last Filed: 04/05/19 03:17> - Medical Decision Making Patient care was signed out to me by Dr. Parikh. This is 73-year-old female who presented with worsening left hip pain, patient has developed chronic pain for a long period of time, today she was walking when her small dog pulled on her and she feels a pulling which did not cause her to fall to the ground may have exacerbated her hip pain. Patient was treated with Dilaudid with minimal improvement, patient was then given Fentanyl. On my evaluation the patient repo rts her only pain now is listening to the crying baby in the neighboring room, her hip pains much better she's been able to ambulate independently to the restroom. All questions pertaining care were answered, return parameters were discussed patient was discharged home in stable condition and advised to follow-up with her primary care physician for reevaluation of her chronic hip pain. (Deyanira Belcher) - Lab Data Lab Results 04/05/19 04/05/19 04/05/19 Range/Units 00:20 00:20 00:40 WBC 9.8 (3.8-10.6) k/uL RBC 3.82 (3.80-5.40) m/uL Hgb 10.3 L (11.4-16.0) gm/dL Hct 33.4 L (34.0-46.0) % MCV 87.4 D (80.0-100.0) fL MCH 26.8 (25.0-35.0) pg MCHC 30.7 L (31.0-37.0) g/dL RDW 14.4 (11.5-15.5) % Plt Count 394 (150-450) k/uL Neutrophils % 73 % Lymphocytes % 16 % Monocytes % 6 % Eosinophils % 2 % Basophils % 0 % Neutrophils # 7.2 (1.3-7.7) k/uL Lymphocytes # 1.6 (1.0-4.8) k/uL Monocytes # 0.6 (0-1.0) k/uL Eosinophils # 0.2 (0-0.7) k/uL Basophils # 0.0 (0-0.2) k/uL Sodium 141 (137-145) mmol/L Potassium 4.8 (3.5-5.1) mmol/L Chloride 108 H (98-107) mmol/L Carbon Dioxide 26 (22-30) mmol/L Anion Gap 7 mmol/L BUN 27 H (7-17) mg/dL Creatinine 0.91 (0.52-1.04) mg/dL Est GFR (CKD-EPI)AfAm 73 (>60 ml/min/1.73 sqM) Est GFR (CKD-EPI)NonAf 63 (>60 ml/min/1.73 sqM) Glucose 85 (74-99) mg/dL Calcium 10.5 H (8.4-10.2) mg/dL Magnesium 2.0 (1.6-2.3) mg/dL Total Bilirubin 0.4 (0.2-1.3) mg/dL AST 36 (14-36) U/L ALT 20 (9-52) U/L Alkaline Phosphatase 108 (38-126) U/L Creatine Kinase 155 H (30-135) U/L Total Protein 7.6 (6.3-8.2) g/dL Albumin 4.1 (3.5-5.0) g/dL Urine Color Light Yellow Urine Appearance Clear (Clear) Urine pH 7.0 (5.0-8.0) Ur Specific [place] 1.015 (1.001-1.035) Urine Protein 2+ H (Negative) Urine Glucose (UA) Negative (Negative) Urine Ketones Negative (Negative) Urine Blood Trace H (Negative) Urine Nitrite Negative (Negative) Urine Bilirubin Negative (Negative) Urine Urobilinogen <2.0 (<2.0) mg/dL Ur Leukocyte Esterase Small H (Negative) Urine RBC 1 (0-5) /hpf Urine WBC 6 H (0-5) /hpf Ur Squamous Epith Cells 1 (0-4) /hpf Urine Bacteria Rare H (None) /hpf Disposition <Brodie Parikh - Last Filed: 04/05/19 01:04> Is patient prescribed a controlled substance at d/c from ED?: No <Deyanira Belcher - Last Filed: 04/05/19 03:17> Clinical Impression: Chronic hip pain Disposition: HOME SELF-CARE Condition: Stable Instructions (If sedation given, give patient instructions): Hip Pain (ED) Referrals: Reji Bartholomew MD [Primary Care Provider] - 1-2 days
[2019-04-05 00:45] LABS: Basophils % (A) 0 %; Eosinophils # (A) 0.2 k/uL (0-0.7); Eosinophils % (A) 2 %; HCT 33.4 % (34.0-46.0); HGB 10.3 gm/dL (11.4-16.0); Lymphocytes # (A) 1.6 k/uL (1.0-4.8); Lymphocytes % (A) 16 %; MCH 26.8 pg (25.0-35.0); MCHC 30.7 g/dL (31.0-37.0); Mean Platelet Volume 6.5; Monocytes # (A) 0.6 k/uL (0-1.0); Monocytes % (A) 6 %; Neutrophils # (A) 7.2 k/uL (1.3-7.7); Neutrophils % (A) 73 %; Platelet Count 394 k/uL (150-450); RBC 3.82 m/uL (3.80-5.40); RDW 14.4 % (11.5-15.5); WBC 9.8 k/uL (3.8-10.6)
[2019-04-05 00:46] LABS: MCV 87.4 fL (80.0-100.0)
[2019-04-05 00:48] LABS: Appearance,Urine Clear (Clear); Bacteria,Urine Rare /hpf; Bilirubin,Urine Negative (Negative); Blood,Urine Trace (Negative); Color,Urine Light Yellow; Glucose,Urine (UA) Negative (Negative); Ketones,Urine Negative (Negative); Leukocyte Esterase,Urine Small (Negative); Nitrite,Urine Negative (Negative); Protein,Urine 2+ (Negative); RBC,Urine 1 /hpf (0-5); Specific Gravity,Urine 1.015 (1.001-1.035); Squamous Epithelial Cell,Urine 1 /hpf (0-4); Urobilinogen,Urine <2.0 mg/dL (<2.0); WBC,Urine 6 /hpf (0-5)
[2019-04-05] MEDS ORDERED: fentaNYL (PF) 50 MCG/ML 2 ML AMP IV STA (00:52)
[2019-04-05 01:31] LABS: Albumin 4.1 g/dL (3.5-5.0); Calcium 10.5 mg/dL (8.4-10.2); Potassium 4.8 mmol/L (3.5-5.1); Total Bilirubin 0.4 mg/dL (0.2-1.3); Total Protein 7.6 g/dL (6.3-8.2)
[2019-04-05 02:48] VITALS: BP 171/76; PULSE 61
== END 2019-04-05 03:15 | disposition home or self-care (01) ==
LOC: EC 23:26
DX: G89.29 Other chronic pain (principal); M25.551 Pain in right hip; E11.9 Type 2 diabetes mellitus without complications; M79.7 Fibromyalgia; K21.9 Gastro-esophageal reflux disease without esophagitis; E78.5 Hyperlipidemia, unspecified; I10 Essential (primary) hypertension; M19.90 Unspecified osteoarthritis, unspecified site; M06.9 Rheumatoid arthritis, unspecified; E07.9 Disorder of thyroid, unspecified; Z88.0 Allergy status to penicillin; Z88.5 Allergy status to narcotic agent; Z88.8 Allergy status to other drugs, medicaments and biological substances; Z91.030 Bee allergy status; Z91.038 Other insect allergy status; Z91.048 Other nonmedicinal substance allergy status; Z79.01 Long term (current) use of anticoagulants; Z79.4 Long term (current) use of insulin; Z79.51 Long term (current) use of inhaled steroids; Z79.890 Hormone replacement therapy; Z79.899 Other long term (current) drug therapy; Z96.652 Presence of left artificial knee joint
CPT/HCPCS: 36415; 80053; 81001; 82550; 83735; 85025; 96374; 96375; 99284

== ENCOUNTER 2019-04-30 20:16 | Inpatient (IN) | payer MEDICARE, BC ==
[2019-04-30] MEDS ORDERED: SODIUM CHLORIDE 0.9% 500 ML 500 ML IV ONE (20:31)
[2019-04-30 20:47] LABS: Anisocytosis Slight; Basophils # (A) 0.1 k/uL (0-0.2); Basophils % (A) 1 %; Eosinophils # (A) 0.2 k/uL (0-0.7); Eosinophils % (A) 3 %; HCT 37.6 % (34.0-46.0); HGB 12.1 gm/dL (11.4-16.0); Lymphocytes # (A) 1.1 k/uL (1.0-4.8); Lymphocytes % (A) 13 %; MCH 30.2 pg (25.0-35.0); MCHC 32.1 g/dL (31.0-37.0); Monocytes # (A) 0.6 k/uL (0-1.0); Monocytes % (A) 7 %; Neutrophils # (A) 6.5 k/uL (1.3-7.7); Neutrophils % (A) 76 %; Platelet Count 282 k/uL (150-450); RDW 17.5 % (11.5-15.5); WBC 8.5 k/uL (3.8-10.6)
[2019-04-30 20:51] LABS: MCV 93.9 fL (80.0-100.0)
[2019-04-30 20:55] LABS: Albumin 3.9 g/dL (3.5-5.0); Calcium 9.7 mg/dL (8.4-10.2); Potassium 3.8 mmol/L (3.5-5.1); Total Bilirubin 0.3 mg/dL (0.2-1.3)
[2019-04-30 20:56] LABS: INR 0.9 (<1.2); Partial Thromboplastin Time 25.4 sec (22.0-30.0); Prothrombin Time 9.8 sec (9.0-12.0)
--- NOTE | 2019-04-30 20:56 | CT ---
EXAMINATION TYPE: CT brain wo con DATE OF EXAM: 04/30/2019 COMPARISON: 11/25/2018 HISTORY: ALTERED MENTAL STATUS CT DLP: 1066.4 mGycm Automated exposure control for dose reduction was used. FINDINGS: There is some patchy hypodensity in the periventricular white matter. There is no mass effect nor mid line shift. There is no sign of intracranial hemorrhage. Calvarium is intact. IMPRESSION: PATCHY WHITE MATTER HYPODENSITY THAT COULD RELATE TO CHRONIC SMALL VESSEL ISCHEMIA. NO ACUTE INTRACRA NIAL ABNORMALITY. NO CHANGE.
--- NOTE | 2019-04-30 21:05 | XR ---
EXAMINATION TYPE: XR chest 1V portable DATE OF EXAM: 04/30/2019 COMPARISON: 11/25/2018 HISTORY: Altered mental status TECHNIQUE: Single frontal view of the chest is obtained. FINDINGS: There is some mild infiltrate left lower lobe. The other lung guo are clear. There is n o heart failure. There are chest leads. There is no pleural effusion. IMPRESSION: Mild left lower lobe pneumonia. No heart failure seen. Inspiration decreased compared to old exam.
[2019-04-30] MEDS ORDERED: AZITHROMYCIN 500 MG in SODIUM CHLORIDE 0.9% 250 ML IVPB STA (21:36)
[2019-04-30 21:46] LABS: Appearance,Urine Clear (Clear); Bilirubin,Urine Negative (Negative); Blood,Urine Negative (Negative); Color,Urine Light Yellow; Glucose,Urine (UA) Negative (Negative); Ketones,Urine Negative (Negative); Leukocyte Esterase,Urine Trace (Negative); Mucus,Urine Rare /hpf; Nitrite,Urine Negative (Negative); PH, Urine 6.5 (5.0-8.0); Protein,Urine 2+ (Negative); RBC,Urine <1 /hpf (0-5); Specific Gravity,Urine 1.011 (1.001-1.035); Squamous Epithelial Cell,Urine <1 /hpf (0-4); Urobilinogen,Urine <2.0 mg/dL (<2.0); WBC,Urine 4 /hpf (0-5)
[2019-04-30 21:57] LABS: Amphetamine Screen,Urine Not Detected (NotDetected); Barbiturate Screen,Urine Not Detected (NotDetected); Benzodiazepines Screen,Urine Not Detected (NotDetected); Cocaine Screen,Urine Not Detected (NotDetected); Methadone Screen, Urine Not Detected (NotDetected); Opiate Screen,Urine Detected (NotDetected); Oxycodone Screen, Urine Not Detected (NotDetected); Phencyclidine Screen,Urine Not Detected (NotDetected); Tricyclic Antidepressant,Urine Not Detected (NotDetected); Urn Cannabinoid Scrn Not Detected (NotDetected)
[2019-04-30] MEDS ORDERED: ACETAMINOPHEN TAB 325 MG TAB PO PRN (22:15)
[2019-04-30] MEDS ORDERED: PNEUMONIA PROTOCOL UTILIZED 1 EACH MISC PO PRN (22:15)
[2019-04-30] MEDS ORDERED: NALOXONE 0.4 MG/ML 1 ML VIAL IV PRN (22:15)
[2019-04-30] MEDS ORDERED: SODIUM CHLORIDE 0.9% 1,000 ML IV SCH (22:15)
--- NOTE | 2019-04-30 22:18 | ED ---
General Adult HPI - General Chief complaint: Recheck/Abnormal Lab/Rx Stated complaint: hypoglycemia Time Seen by Provider: 04/30/19 20:21 Source: patient, EMS, RN notes reviewed, old records reviewed Mode of arrival: EMS - History of Present Illness Initial comments: 73-year-old female patient with past history of type 2 diabetes, fibromyalgia, hypertension hyperlipidemia chronic kidney disease presents ED chief complaint altered mental status. Per patient did not eat dinner then became acting strange. He checked her blood sugar and it was approximately 31. Patient reports that he gave her something to drink but is not improved. They then called EMS. About an EMS she was given 1 amp of dextrose. On review of systems patient complains of a mild headache. However does not complain of any other focal symptoms reports that she does not feel well. Denies any chest pain or abdominal pain. Declines any other complaints. Systemic: Pt denies fatigue, fever/chills, rash. Pt denies weakness, night sweats, weight loss. Neuro: Pt denies visual disturbances, syncope or pre-syncope. HEENT: Pt denies ocular discharge or irritation, otalgia, rhinorrhea, pharyngit is or notable lymphadenopathy. Cardiopulmonary: Pt denies chest pain, SOB, heart palpitations, dyspnea on exertion. Abdominal/GI: Pt denies abdominal pain, n/v/d. : Pt denies dysuria, burning w/ urination, frequency/urgency. Denies new onset urinary or bowel incontinence. MSK: Pt denies myalgia, loss of strength or function in extremities. Neuro: Pt denies new onset weakness, paresthesias. - Related Data Home Medications Medication Instructions Recorded Confirmed Bumetanide [BUMEX] 1 mg PO BID 10/02/14 04/09/19 Cholecalciferol [Vitamin D3 (25 2,000 unit PO TID 10/02/14 04/09/19 Mcg = 1000 Iu)] Fluticasone Propionate [Flonase 2 spray EA NOSTRIL BID 10/02/14 04/09/19 Allergy Relief] Pantoprazole Sodium 40 mg PO AC-BRKFST 10/02/14 04/09/19 cycloSPORINE [Restasis] 1 drop BOTH EYES BID 10/02/14 04/09/19 DULoxetine HCL [Cymbalta] 60 mg PO HS 04/16/15 04/09/19 traZODone HCL [Desyrel] 50 mg PO HS 06/06/15 04/09/19 Diclofenac Sodium [Voltaren Gel] 2 gram TOPICAL DAILY PRN 12/16/16 04/09/19 Gabapentin [Neurontin] 100 mg PO AC-BID 12/16/16 04/09/19 Levothyroxine Sodium [Synthroid] 137 mcg PO AC-BRKFST 12/16/16 04/09/19 HYDROcodone/APAP 7.5-325MG [[place] 1 tab PO TID PRN 04/13/17 04/09/19 7.5-325] Loteprednol Etabonate [Lotemax] 1 drop BOTH EYES DAILY 04/13/17 04/09/19 Metoprolol Tartrate [Lopressor] 12.5 mg PO BID 04/13/17 04/09/19 Doxercalciferol [Hectorol] 0.5 mcg PO MOTUWETHFR@2100 07/04/17 04/09/19 Repaglinide [Prandin] 2 mg PO AC-TID 07/04/17 04/09/19 SILVER sulfADIAZINE Cream 1 applic TOPICAL DAILY PRN 07/04/17 04/09/19 [Silvadene 1% Cream] Apixaban [Eliquis] 5 mg PO BID 09/27/18 04/09/19 Milk Thistle 200 mg PO DAILY 09/27/18 04/09/19 Optive Eye Drop 1 drop BOTH EYES DAILY 09/27/18 04/09/19 Pravastatin Sodium [Pravachol] 20 mg PO AC-SUPPER 09/27/18 04/09/19 Acetaminophen [Tylenol] 500 mg PO Q4-6H PRN 04/03/19 04/09/19 Cinnamon Bark [Cinnamon] 250 mg PO BID 04/03/19 04/09/19 Insulin Aspart [NovoLOG Flexpen] 6 units SQ AC-BRKFST 04/03/19 04/09/19 Insulin Aspart [NovoLOG Flexpen] 12 units SQ AC-SUPPER 04/03/19 04/09/19 Insulin Detemir [Levemir Flextouch] 26 units SQ AC-SUPPER 04/03/19 04/09/19 Allergies Allergy/AdvReac Type Severity Reaction Status Date / Time adhesive tape Allergy Rash/Hives Verified 04/09/19 11:46 insect venom Allergy Swelling Verified 04/09/19 11:46 triamcinolone Allergy Unknown Verified 04/09/19 11:46 venom-honey bee Allergy Swelling Verified 04/09/19 11:46 caffeine AdvReac Nausea & Verified 04/09/19 11:46 Vomiting & Diarrhea hydrocodone bitartrate AdvReac Itching Verified 04/09/19 11:46 [From Lorcet (hydrocodone)] Penicillins AdvReac Nausea & Verified 04/09/19 11:46 Vomiting & Diarrhea tramadol HCl [From Ultram] AdvReac Itching Verified 04/09/19 11:46 Review of Systems ROS Statement: Those systems with pertinent positive or pertinent negative responses have been documented in the HPI. ROS Other: All systems not noted in ROS Statement are negative. Past Medical History Past Medical History: Chest Pain / Angina, Diabetes Mellitus, Fibromyalgia, GERD/Reflux, Hyperlipidemia, Hypertension, Osteoarthritis (OA), Renal Disease, Rheumatoid Arthritis (RA), Thyroid Disorder Additional Past Medical History / Comment(s): BURSITIS, falls, chronic sacral wound(wcc) Vertigo, anemia History of Any Multi-Drug Resistant Organisms: None Reported Past Surgical History: Adenoidectomy, Cholecystectomy, Hysterectomy, Orthopedic Surgery, Tonsillectomy Additional Past Surgical History / Comment(s): 3 RIGHT KNEE SURGERIES AND 2 LEFT TOTAL KNEE REPLACEMENTS SURGERIES. D&C'S. Lap Ignacio-en-Y gastric [place] [address] Zambrano , total hysterectomy for fibroid tumor, tubal ligation Past Anesthesia/Blood Transfusion Reactions: Motion Sickness Additional Past Anesthesia/Blood Transfusion Reaction / Comment(s): Pt received blood in 2012 without reaction. Past Psychological History: No Psychological Hx Reported Smoking Status: Never smoker - Past Family History Mother Family Medical History: Coronary Artery Disease (CAD) Additional Family Medical History / Comment(s): age 90 of heart failure. Had hx of Parkinsons and Narcolepsy Father Family Medical History: Coronary Artery Disease (CAD) Additional Family Medical History / Comment(s): age 73 of massive heart attack General Exam - General Exam Comments Initial Comments: Constitutional: NAD, AOX3. HEENT: NC/AT, trachea midline, neck supple, no lymphadenopathy. Posterior pharynx non erythematous, without exudates. External ears appear normal, without discharge. Mucous membranes moist. Eyes PERRLA, EOM intact. There is no scleral icterus. No pallor noted. Cardiopulmonary: RRR, no murmurs, rubs or gallops, no JVD noted. Lungs CTAB in anterior and posterior guo. No peripheral edema. Abdominal exam: Abdomen soft and non-distended. Abdomen non-tender to palpation in all 4 quadrants. Bowel sounds active in LLQ. No hepatosplenomegaly. No ecc hymosis Neuro: CN II-XII intact. No nuchal rigidity. No raccon eyes, no goldsmith sign, no hemotympanum. No cervical spinal tenderness. MSK: No posterior calf tenderness bilaterally, homans sign negative bilaterally. Posterior tibialis and radial pulse +2 bilaterally. Sensation intact in upper and lower extremities. Full active ROM in upper and lower extremities, 5/5 stregnth. Course Vital Signs 04/30/19 04/30/19 04/30/19 20:17 20:26 20:30 Temperature 97 F L Pulse Rate 60 60 Respiratory 16 18 Rate Blood Pressure 176/82 176/82 168/98 O2 Sat by Pulse 99 99 97 Oximetry 04/30/19 04/30/19 21:00 21:30 Temperature Pulse Rate 65 60 Respiratory 16 16 Rate Blood Pressure 178/93 181/88 O2 Sat by Pulse 99 Oximetry Medical Decision Making - Medical Decision Making 73-year-old female patient with past history of type 2 diabetes, fibromyalgia, hypertension hyperlipidemia chronic kidney disease presents ED chief complaint altered mental status. Per patient did not eat dinner then became acting strange. He checked her blood sugar and it was approximately 31. Patient reports that he gave her something to drink but is not improved. They then called EMS. About an EMS she was given 1 amp of dextrose. On review of systems patient complains of a mild headache. However does not complain of any other focal symptoms reports that she does not feel well. Denies any chest pain or abdominal pain. Declines any other complaints. Patient also displayed mild hypertension otherwise stable. Physical exam displayed neurologic exam within normal limits. NIH is 0. No acute pathology displayed. Laboratory investigations revealed mildly increased BUN. Otherwise noncompressive. EKG nonischemic. CT brain displayed patchy white matter hypodensity likely related to chronic small vessel ischemia. No acute intracranial abnormality. No change. Chest x-ray displayed mild left lower lobe pneumonia. Patient be admitted for continued quite pneumonia. Initiated on azithromycin. Case discussed with Dr. Belcher. - Lab Data Result diagrams: 04/30/19 20:23 04/30/19 20:23 Lab Results 04/30/19 04/30/19 04/30/19 Range/Units 20:23 20:23 20:23 WBC 8.5 (3.8-10.6) k/uL RBC 4.00 (3.80-5.40) m/uL Hgb 12.1 (11.4-16.0) gm/dL Hct 37.6 (34.0-46.0) % MCV 93.9 D (80.0-100.0) fL MCH 30.2 (25.0-35.0) pg MCHC 32.1 (31.0-37.0) g/dL RDW 17.5 H (11.5-15.5) % Plt Count 282 (150-450) k/uL Neutrophils % 76 % Lymphocytes % 13 % Monocytes % 7 % Eosinophils % 3 % Basophils % 1 % Neutrophils # 6.5 (1.3-7.7) k/uL Lymphocytes # 1.1 (1.0-4.8) k/uL Monocytes # 0.6 (0-1.0) k/uL Eosinophils # 0.2 (0-0.7) k/uL Basophils # 0.1 (0-0.2) k/uL Anisocytosis Slight PT 9.8 (9.0-12.0) sec INR 0.9 (<1.2) APTT 25.4 (22.0-30.0) sec Sodium 141 (137-145) mmol/L Potassium 3.8 (3.5-5.1) mmol/L Chloride 109 H (98-107) mmol/L Carbon Dioxide 25 (22-30) mmol/L Anion Gap 7 mmol/L BUN 27 H (7-17) mg/dL Creatinine 0.81 (0.52-1.04) mg/dL Est GFR (CKD-EPI)AfAm 85 (>60 ml/min/1.73 sqM) Est GFR (CKD-EPI)NonAf 73 (>60 ml/min/1.73 sqM) Glucose 105 H (74-99) mg/dL Calcium 9.7 (8.4-10.2) mg/dL Total Bilirubin 0.3 (0.2-1.3) mg/dL AST 52 H (14-36) U/L ALT 51 (9-52) U/L Alkaline Phosphatase 86 (38-126) U/L Troponin I (0.000-0.034) ng/mL Total Protein 7.0 (6.3-8.2) g/dL Albumin 3.9 (3.5-5.0) g/dL Urine Color Urine Appearance (Clear) Urine pH (5.0-8.0) Ur Specific Gilbert (1.001-1.035) Urine Protein (Negative) Urine Glucose (UA) (Negative) Urine Ketones (Negative) Urine Blood (Negative) Urine Nitrite (Negative) Urine Bilirubin (Negative) Urine Urobilinogen (<2.0) mg/dL Ur Leukocyte Esterase (Negative) Urine RBC (0-5) /hpf Urine WBC (0-5) /hpf Ur Squamous Epith Cells (0-4) /hpf Urine Mucus (None) /hpf Urine Opiates Screen (NotDetected) Ur Oxycodone Screen (NotDetected) Urine Methadone Screen (NotDetected) Ur Propoxyphene Screen (NotDetected) Ur Barbiturates Screen (NotDetected) U Tricyclic Antidepress (NotDetected) Ur Phencyclidine Scrn (NotDetected) Ur Amphetamines Screen (NotDetected) U Methamphetamines Scrn (NotDetected) U Benzodiazepines Scrn (NotDetected) Urine Cocaine Screen (NotDetected) U Marijuana (THC) Screen (NotDetected) 04/30/19 04/30/19 04/30/19 Range/Units 20:23 21:30 21:30 WBC (3.8-10.6) k/uL RBC (3.80-5.40) m/uL Hgb (11.4-16.0) gm/dL Hct (34.0-46.0) % MCV (80.0-100.0) fL MCH (25.0-35.0) pg MCHC (31.0-37.0) g/dL RDW (11.5-15.5) % Plt Count (150-450) k/uL Neutrophils % % Lymphocytes % % Monocytes % % Eosinophils % % Basophils % % Neutrophils # (1.3-7.7) k/uL Lymphocytes # (1.0-4.8) k/uL Monocytes # (0-1.0) k/uL Eosinophils # (0-0.7) k/uL Basophils # (0-0.2) k/uL Anisocytosis PT (9.0-12.0) sec INR (<1.2) APTT (22.0-30.0) sec Sodium (137-145) mmol/L Potassium (3.5-5.1) mmol/L Chloride (98-107) mmol/L Carbon Dioxide (22-30) mmol/L Anion Gap mmol/L BUN (7-17) mg/dL Creatinine (0.52-1.04) mg/dL Est GFR (CKD-EPI)AfAm (>60 ml/min/1.73 sqM) Est GFR (CKD-EPI)NonAf (>60 ml/min/1.73 sqM) Glucose (74-99) mg/dL Calcium (8.4-10.2) mg/dL Total Bilirubin (0.2-1.3) mg/dL AST (14-36) U/L ALT (9-52) U/L Alkaline Phosphatase (38-126) U/L Troponin I <0.012 (0.000-0.034) ng/mL Total Protein (6.3-8.2) g/dL Albumin (3.5-5.0) g/dL Urine Color Light Yellow Urine Appearance Clear (Clear) Urine pH 6.5 (5.0-8.0) Ur Specific Gilbert 1.011 (1.001-1.035) Urine Protein 2+ H (Negative) Urine Glucose (UA) Negative (Negative) Urine Ketones Negative (Negative) Urine Blood Negative (Negative) Urine Nitrite Negative (Negative) Urine Bilirubin Negative (Negative) Urine Urobilinogen <2.0 (<2.0) mg/dL Ur Leukocyte Esterase Trace H (Negative) Urine RBC <1 (0-5) /hpf Urine WBC 4 (0-5) /hpf Ur Squamous Epith Cells <1 (0-4) /hpf Urine Mucus Rare H (None) /hpf Urine Opiates Screen Detected H (NotDetected) Ur Oxycodone Screen Not Detected (NotDetected) Urine Methadone Screen Not Detected (NotDetected) Ur Propoxyphene Screen Not Detected (NotDetected) Ur Barbiturates Screen Not Detected (NotDetected) U Tricyclic Antidepress Not Detected (NotDetected) Ur Phencyclidine Scrn Not Detected (NotDetected) Ur Amphetamines Screen Not Detected (NotDetected) U Methamphetamines Scrn Not Detected (NotDetected) U Benzodiazepines Scrn Not Detected (NotDetected) Urine Cocaine Screen Not Detected (NotDetected) U Marijuana (THC) Screen Not Detected (NotDetected) - EKG Data -: EKG Interpreted by Me (and Dr. Belcher) EKG Comments: Integrate 60, when necessary for 160, QRS 118, QT/QTc 464/464. Dorsalis rhythm with sinus arrhythmia. Left axis deviation. Left ventricular hypertrophy with QRS widening. cannot Rule out septal infarct. No significant change from prior. No concern for acute ischemia. Disposition Clinical Impression: Community acquired pneumonia Disposition: ADMITTED IP TO THIS HOSP Condition: Serious Is patient prescribed a controlled substance at d/c from ED?: No Referrals: Reji Bartholomew MD [Primary Care Provider] - 1-2 days
[2019-04-30 22:51] LABS: Glucose,Whole Blood 123 mg/dL (75-99)
[2019-05-01 06:04] LABS: Glucose,Whole Blood 105 mg/dL (75-99)
[2019-05-01] MEDS ORDERED: ACETAMINOPHEN TAB 500 MG TAB PO PRN (08:13)
[2019-05-01] MEDS ORDERED: BUMETANIDE 1 MG TAB PO PRN (08:13)
[2019-05-01] MEDS ORDERED: IPRATROPIUM-ALBUTEROL 3 ML NEB INHALATION PRN (08:21)
[2019-05-01] MEDS: HYDROcodone/APAP 7.5-325MG 1 EACH TAB PO PRN ×2 (08:53→16:54)
[2019-05-01 09:00] LABS: Glucose,Whole Blood 142 mg/dL (75-99)
[2019-05-01] MEDS ORDERED: prednisoLONE ACETATE 1% OPHTH DROPS 5 ML BTL BOTH EYES SCH (09:00)
[2019-05-01] MEDS: CARVEDILOL 6.25 MG TAB PO SCH ×2 (09:07→16:54)
[2019-05-01] MEDS: PANTOPRAZOLE 40 MG TABLET PO SCH (09:07)
[2019-05-01] MEDS: CHOLECALCIFEROL 1,000 UNIT TAB PO SCH ×3 (09:07→20:25)
[2019-05-01] MEDS: amLODIPine 5 MG TAB PO SCH (09:07)
[2019-05-01] MEDS: INSULIN ASPART (NovoLOG) 100 UNIT/ML VIAL SQ SCH ×4 (09:12→20:31)
--- NOTE | 2019-05-01 11:17 | P.HPIM ---
History of Present Illness H&P Date: 05/01/19 This is a 73-year-old female patient of Dr. Bartholomew. Patient presented with altered mental status changes. Per patient's patient was acting strange and was found to have a low blood sugar of 31. patient also reports that she overall has not been feeling well including nausea and some coughing. Patient also having chills. Patient also has extensive medical history including chest pain, diabetes mellitus, fibromyalgia, GERD, hyperlipidemia, hypertension, arthritis, renal disease, rheumatoid arthritis, hypothyroidism, cholecystectomy and previous Ignacio-en-Y gastric bypass surgery. Patient also is currently on eliquis in which patient and patient's unable to state why. 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 Denies any history of atrial fibrillation, PE or DVT. CT completed showing patchy white matter hypodensity that could relate to chronic small vessel ischemia. No acute intracranial abnormality. No change. Chest x-ray completed showing mild left lower lobe pneumonia. No heart failure seen. Inspiration decreased compared to old exam. Urinary analysis showing trace amount of leukocyte Estrace. Urine culture will be ordered. Started on Rocephin and azithromycin for pneumonia. DuoNeb breathing treatments ordered. Pulmonary and cardiology services have been consulted. Blood and sputum cultures ordered. Review of Systems please refer to HPI otherwise unremarkable Past Medical History Past Medical History: Chest Pain / Angina, Diabetes Mellitus, Fibromyalgia, GERD/Reflux, Hyperlipidemia, Hypertension, Osteoarthritis (OA), Renal Disease, Rheumatoid Arthritis (RA), Thyroid Disorder Additional Past Medical History / Comment(s): BURSITIS, falls, chronic sacral wound(wcc) Vertigo, anemia History of Any Multi-Drug Resistant Organisms: None Reported Past Surgical History: Adenoidectomy, Cholecystectomy, Hysterectomy, Orthopedic Surgery, Tonsillectomy Additional Past Surgical History / Comment(s): 3 RIGHT KNEE SURGERIES AND 2 LEFT TOTAL KNEE REPLACEMENTS SURGERIES. D&C'S. Lap Ignacio-en-Y gastric [place] [address] Zambrano , total hysterectomy for fibroid tumor, tubal ligation Past Anesthesia/Blood Transfusion Reactions: Motion Sickness Additional Past Anesthesia/Blood Transfusion Reaction / Comment(s): Pt received blood in 2012 without reaction. Past Psychological History: No Psychological Hx Reported Smoking Status: Never smoker - Past Family History Mother Family Medical History: Coronary Artery Disease (CAD) Additional Family Medical History / Comment(s): age 90 of heart failure. Had hx of Parkinsons and Narcolepsy Father Family Medical History: Coronary Artery Disease (CAD) Additional Family Medical History / Comment(s): age 73 of massive heart attack Medications and Allergies Home Medications Medication Instructions Recorded Confirmed Type Bumetanide [BUMEX] 1 mg PO BID PRN 10/02/14 05/01/19 History Cholecalciferol [Vitamin D3 (25 2,000 unit PO TID 10/02/14 05/01/19 History Mcg = 1000 Iu)] Fluticasone Propionate [Flonase 2 spray EA NOSTRIL BID 10/02/14 05/01/19 History Allergy Relief] Pantoprazole Sodium 40 mg PO AC-BRKFST 10/02/14 05/01/19 History cycloSPORINE [Restasis] 1 drop BOTH EYES BID 10/02/14 05/01/19 History DULoxetine HCL [Cymbalta] 60 mg PO HS 04/16/15 05/01/19 History traZODone HCL [Desyrel] 50 mg PO HS 06/06/15 05/01/19 History Diclofenac Sodium [Voltaren Gel] 2 gram TOPICAL DAILY PRN 12/16/16 05/01/19 History Gabapentin [Neurontin] 100 mg PO AC-BID@1200,1800 12/16/16 05/01/19 History Levothyroxine Sodium [Synthroid] 137 mcg PO AC-BRKFST 12/16/16 05/01/19 History HYDROcodone/APAP 7.5-325MG [[place] 1 tab PO TID PRN 04/13/17 05/01/19 History 7.5-325] Loteprednol Etabonate [Lotemax] 1 drop BOTH EYES DAILY 04/13/17 05/01/19 History Doxercalciferol [Hectorol] 0.5 mcg PO MOTUWETHFR@2100 07/04/17 05/01/19 History Repaglinide [Prandin] 2 mg PO AC-TID 07/04/17 05/01/19 History SILVER sulfADIAZINE Cream 1 applic TOPICAL DAILY PRN 07/04/17 05/01/19 History [Silvadene 1% Cream] Apixaban [Eliquis] 5 mg PO BID-W/MEALS 09/27/18 05/01/19 History Optive Eye Drop 1 drop BOTH EYES DAILY 09/27/18 05/01/19 History Pravastatin Sodium [Pravachol] 20 mg PO AC-SUPPER 09/27/18 05/01/19 History Acetaminophen [Tylenol] 500 mg PO Q4H PRN 04/03/19 05/01/19 History Insulin Aspart [NovoLOG Flexpen] See Protocol SQ AC-TID 04/03/19 05/01/19 History Insulin Detemir [Levemir Flextouch] See Protocol SQ HS 04/03/19 05/01/19 History Carvedilol [Coreg] 6.25 mg PO BID-W/MEALS 05/01/19 05/01/19 History Cinnamon 250 Mg 250 mg PO AC-BID@0700,1200 05/01/19 05/01/19 History Milk Thistle 200 Mg 200 mg PO W/LUNCH 05/01/19 05/01/19 History amLODIPine [Norvasc] 5 mg PO DAILY 05/01/19 05/01/19 History Allergies Allergy/AdvReac Type Severity Reaction Status Date / Time adhesive tape Allergy Rash/Hives Verified 05/01/19 07:47 insect venom Allergy Swelling Verified 05/01/19 07:47 triamcinolone Allergy Unknown Verified 05/01/19 07:47 venom-honey bee Allergy Swelling Verified 05/01/19 07:47 caffeine AdvReac Nausea & Verified 05/01/19 07:47 Vomiting & Diarrhea hydrocodone bitartrate AdvReac Itching Verified 05/01/19 07:47 [From Lorcet (hydrocodone)] Penicillins AdvReac Nausea & Verified 05/01/19 07:47 Vomiting & Diarrhea tramadol HCl [From Ultram] AdvReac Itching Verified 05/01/19 07:47 Physical Exam Vitals: Vital Signs Temp Pulse Resp BP Pulse Ox 05/01/19 08:15 98.1 F 82 18 142/78 97 05/01/19 07:15 71 16 160/75 99 04/30/19 22:00 60 17 158/84 100 04/30/19 21:30 60 16 181/88 04/30/19 21:00 65 16 178/93 99 04/30/19 20:30 60 18 168/98 97 04/30/19 20:26 176/82 99 04/30/19 20:17 97 F L 60 16 176/82 99 Intake and Output 04/30/19 05/01/19 05/01/19 22:59 06:59 14:59 Other: Weight 95.254 kg Head normocephalic Neck supple Lungs diminished bilaterally Heart regular rate and rhythm S1-S2, no rub or gallop Abdomen is soft nontender nondistended positive bowel sounds no hepatosplenomegaly Extremities +1 bilateral lower extremity edema. Per patient and family this is chronic Neuro alert and orientated to 3 Results CBC & Chem 7: 04/30/19 20:23 04/30/19 20:23 Labs: Abnormal Lab Results - Last 24 Hours (Table) 04/30/19 04/30/19 04/30/19 Range/Units 20:23 20:23 21:30 RDW 17.5 H (11.5-15.5) % Chloride 109 H (98-107) mmol/L BUN 27 H (7-17) mg/dL Glucose 105 H (74-99) mg/dL POC Glucose (mg/dL) (75-99) mg/dL AST 52 H (14-36) U/L Urine Protein (Negative) Ur Leukocyte Esterase (Negative) Urine Mucus (None) /hpf Urine Opiates Screen Detected H (NotDetected) 04/30/19 04/30/19 05/01/19 Range/Units 21:30 22:48 06:02 RDW (11.5-15.5) % Chloride (98-107) mmol/L BUN (7-17) mg/dL Glucose (74-99) mg/dL POC Glucose (mg/dL) 123 H 105 H (75-99) mg/dL AST (14-36) U/L Urine Protein 2+ H (Negative) Ur Leukocyte Esterase Trace H (Negative) Urine Mucus Rare H (None) /hpf Urine Opiates Screen (NotDetected) 05/01/19 Range/Units 08:58 RDW (11.5-15.5) % Chloride (98-107) mmol/L BUN (7-17) mg/dL Glucose (74-99) mg/dL POC Glucose (mg/dL) 142 H (75-99) mg/dL AST (14-36) U/L Urine Protein (Negative) Ur Leukocyte Esterase (Negative) Urine Mucus (None) /hpf Urine Opiates Screen (NotDetected) Assessment and Plan Assessment: 1. Altered mental status changes likely secondary to hypoglycemia and pneumonia. Head CT completed showing patchy white matter hypodensity that could relate to chronic small vessel ischemia. No acute intracranial abnormality. No change. 2. Left lower lobe Pneumonia. Chest x-ray completed showing mild left lower lobe pneumonia. No heart failure seen. Inspiration decreased compared to old exam. Patient on azithromycin and Rocephin. Sputum culture ordered. Blood culture ordered. Pulmonary service is consulted 3. Diabetes mellitus type 2. All home medications currently on hold sliding scale insulin added. Will order hemoglobin A1c 4. Urinary tract infection. Urine showing small amount of leukocyte Estrace. Urine culture added. Patient currently covered with Rocephin 5. Currently maintained on eliquis. Patient and family unsure of reasoning for eliquis. 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 Denies any history of atrial fibrillation, PE or DVT. Will consult cardiology services to further investigate. EKG has been ordered 6. History of essential hypertension. Home medications resumed 7. History of fibromyalgia 8. History of hyperlipidemia. Maintained on statin 9. History of rheumatoid arthritis 10. History of hypothyroidism. Maintained on Synthroid. TSH level ordered DVT prophylaxis eliquis. GI prophylaxis Protonix Time with Patient: Greater than 30 (Greater than 60% of the total time spent in counseling and coordination of care. I performed an examination of the patient and discussed their management with the Nurse Practitioner. I have reviewed the Nurse Practitioner's notes and agree with the documented findings and plan of care)
[2019-05-01] MEDS: IPRATROPIUM-ALBUTEROL 3 ML NEB INHALATION SCH ×3 (11:24→20:24)
[2019-05-01] MEDS: SODIUM CHLORIDE 0.9% 1,000 ML IV SCH (11:27)
[2019-05-01] MEDS: cycloSPORINE 0.05% OPHTH 0.4 ML DROPERETTE BOTH EYES SCH ×2 (11:30→23:08)
[2019-05-01] MEDS: LEVOTHYROXINE 137 MCG TAB PO SCH (11:30)
[2019-05-01] MEDS: FLUTICASONE 50MCG/SPRAY NASAL 16GM EA NOSTRIL SCH ×2 (11:32→20:25)
[2019-05-01] MEDS: GABAPENTIN 100 MG CAP PO SCH ×2 (11:32→17:50)
[2019-05-01 13:08] LABS: T4, Free (Free Thyroxine) 1.35 ng/dL (0.78-2.19)
[2019-05-01 13:44] LABS: Glucose,Whole Blood 186 mg/dL (75-99)
--- NOTE | 2019-05-01 14:25 | CDI ---
Documentation Clarification Form Date: 05/01/2019 2:01:59 PM From: Sharlene Marcos RN, CCDS Admit Date: 04/30/2019 10:15:00 PM Patient Name: Mirian Briceno Visit Number: [id number] Discharge Date: ATTENTION: The Clinical Documentation Specialists (CDI) and [facility] Coding Staff appreciate your assistance in clarifying documentation. Please respond to the clarification below the line at the bottom and electronically sign. The CDI & [facility] Coding staff will review the response and follow-up if needed. Please note: Queries are made part of the Legal Health Record. If you have any questions, please contact the author of this message via ITS. Dr. Taina Vergara Altered Mental Status was documented in the ER evaluation and your History and Physical and further clarification is needed. History/Risk Factors: Diabetes Mellitus type 2, Hypertension Clinical Indicators: 73-year-old female with present with altered mental status changes found blood sugar of 31. In our History and Physical you have indicated it is likely secondary to hypoglycemia and pneumonia. Urine also showing small amount of leukocyte Esterace and you have indicated urinary tract infection. Labs: WBC 8.5, Glucose 123, 105, 142, 186 Urine Drug screen positive for Opiates; UA Trace leukocyte Esterase Chest X Ray: Mild left lower lobe pneumonia CT brain: Chronic small vessel ischemia Treatment: Neurovascular checks per protocol Monitor Blood sugars, (cover per orders) Rocephin IV, Azithromycin PO In your professional opinion, please clarify the etiology of the Altered Mental Status, if known. Metabolic Encephalopathy ( and Underlying Medical Illness) Other condition (please specify) Unable to determine (Last Revision: September 2017) Unable to determine MTDD
[2019-05-01 16:45] LABS: Glucose,Whole Blood 174 mg/dL (75-99)
[2019-05-01] MEDS: APIXABAN 5 MG TAB PO SCH (16:54)
[2019-05-01] MEDS ORDERED: PRAVASTATIN SODIUM 20 MG TAB PO SCH (17:30)
[2019-05-01 19:44] LABS: Hemoglobin A1C 7.2 % (4.0-6.0)
[2019-05-01] MEDS ORDERED: HYDROmorphone 0.5 MG/0.5 ML SYRINGE IVP PRN (20:04)
[2019-05-01 20:11] LABS: Glucose,Whole Blood 187 mg/dL (75-99)
[2019-05-01] MEDS: AZITHROMYCIN 500 MG TAB PO SCH (20:24)
[2019-05-01] MEDS ORDERED: DOXERCALCIFEROL 0.5 MCG CAP PO SCH (21:00)
[2019-05-01] MEDS ORDERED: DULoxetine HCL 60 MG CAPSULE.DR PO SCH (21:00)
[2019-05-01] MEDS ORDERED: traZODone HCL 50 MG TAB PO SCH (21:00)
[2019-05-01] MEDS ORDERED: AZITHROMYCIN 500 MG in SODIUM CHLORIDE 0.9% 250 ML IVPB SCH (21:00)
[2019-05-02] MEDS: HYDROcodone/APAP 7.5-325MG 1 EACH TAB PO PRN (02:06)
[2019-05-02] MEDS: SODIUM CHLORIDE 0.9% 1,000 ML IV SCH (03:58)
[2019-05-02 06:42] LABS: Glucose,Whole Blood 178 mg/dL (75-99)
[2019-05-02 07:31] VITALS: BP 192/81; PULSE 74; RESP 12; TEMP 97.8
[2019-05-02] MEDS: INSULIN ASPART (NovoLOG) 100 UNIT/ML VIAL SQ SCH (07:52)
[2019-05-02] MEDS: CARVEDILOL 6.25 MG TAB PO SCH (07:53)
[2019-05-02] MEDS: APIXABAN 5 MG TAB PO SCH (07:53)
[2019-05-02] MEDS: CHOLECALCIFEROL 1,000 UNIT TAB PO SCH (07:53)
[2019-05-02 07:54] LABS: African American GFR (CKD) >90 (>60 ml/min/1.73 sqM); Albumin 3.6 g/dL (3.5-5.0); Anion Gap 9 mmol/L; Blood Urea Nitrogen 18 mg/dL (7-17); Calcium 9.4 mg/dL (8.4-10.2); Carbon Dioxide 22 mmol/L (22-30); Chloride 109 mmol/L (98-107); Glucose 182 mg/dL (74-99); Non-African American GFR(CKD) 79 (>60 ml/min/1.73 sqM); Sodium 140 mmol/L (137-145); Total Bilirubin 0.6 mg/dL (0.2-1.3); Total Protein 6.7 g/dL (6.3-8.2)
[2019-05-02] MEDS: AZITHROMYCIN 500 MG TAB PO SCH (07:54)
[2019-05-02] MEDS: PANTOPRAZOLE 40 MG TABLET PO SCH (07:54)
[2019-05-02] MEDS: LEVOTHYROXINE 137 MCG TAB PO SCH (07:54)
[2019-05-02] MEDS: amLODIPine 5 MG TAB PO SCH (07:54)
[2019-05-02] MEDS: cycloSPORINE 0.05% OPHTH 0.4 ML DROPERETTE BOTH EYES SCH (07:55)
[2019-05-02] MEDS: FLUTICASONE 50MCG/SPRAY NASAL 16GM EA NOSTRIL SCH (07:57)
[2019-05-02 08:28] LABS: ALT 44 U/L (9-52); AST 58 U/L (14-36); Potassium 4.1 mmol/L (3.5-5.1)
[2019-05-02 08:29] LABS: Alkaline Phosphatase 89 U/L (38-126)
[2019-05-02] MEDS: IPRATROPIUM-ALBUTEROL 3 ML NEB INHALATION SCH ×3 (08:36→12:16)
[2019-05-02 09:25] LABS: Anisocytosis Slight; Basophils % (A) 1 %; Eosinophils # (A) 0.2 k/uL (0-0.7); Eosinophils % (A) 3 %; HCT 38.7 % (34.0-46.0); HGB 12.5 gm/dL (11.4-16.0); Lymphocytes # (A) 1.4 k/uL (1.0-4.8); Lymphocytes % (A) 23 %; MCH 30.1 pg (25.0-35.0); MCHC 32.3 g/dL (31.0-37.0); MCV 93.3 fL (80.0-100.0); Mean Platelet Volume 9.3; Monocytes # (A) 0.5 k/uL (0-1.0); Monocytes % (A) 8 %; Neutrophils # (A) 4.1 k/uL (1.3-7.7); Neutrophils % (A) 64 %; Platelet Count 179 k/uL (150-450); RBC 4.15 m/uL (3.80-5.40); RDW 17.9 % (11.5-15.5); WBC 6.4 k/uL (3.8-10.6)
--- NOTE | 2019-05-02 11:58 | P.CRDCN ---
History of Present Illness History of present illness: HISTORY OF PRESENTING ILLNESS This is a 73-year-old female past medical history significant for paroxysmal atrial fibrillation on long-term anticoagulation, dyslipidemia, hypertension, diabetes mellitus and pulmonary hypertension. She presented with hypoglycemia. She follows in the office with Alisia. We have been asked to see him in consultation secondary to being on eliquis for unknown reason. We request records from her primary oracle database manager and it indicated she has paroxysmal atrial fibrillation. She is seen and examined sitting up in bed in no acute distress. She denies chest pain, shortness of breath, dizziness, palpitations or cough. She has been diagnosed with pneumonia. The patient is quite rude and unwilling to allow complete exam to be completed. DIAGNOSTICS EKG reveals sinus mechanism with left axis deviation and wide QRS pattern and poor R-wave progression. Compared to EKG from her oracle database manager office in October 2018 and no acute changes. Chest xray left lower lobe pneumonia. CT brain with patchy white matter hypodensity could be related to chronic small vessel ischemia with no acute intracranial abnormality. Laboratory reviewed,WBC 6.4, hemoglobin 12.5, platelets 179, sodium 140, potassium 4.1, creatinine 0.76, troponin negative 1, TSH 0.248 and free T4 1 0.35. Current cardiac medications include Eliquis 5 mg twice a day, Bumex 1 mg twice a day as needed, carvedilol 6.25 mg twice a day, pravastatin 20 mg daily and amlodipine 5 mg daily. Most recent echocardiogram obtained with her primary oracle database manager in September 2018 reveals preserved LV systolic function with ejection fraction 60%, mild MR, mild left atrial enlargement, mild right atrial enlargement, mild aortic sclerosis. Most recent Lexiscan stress test performed with her primary oracle database manager in the office in October 2018 was negative for reversible cardiac ischemia. REVIEW OF SYSTEMS At the time of my exam: CONSTITUTIONAL: Denies fever or chills. CARDIOVASCULAR: Denies chest pain, shortness of breath, orthopnea, PND or palpitations. RESPIRATORY: Denies cough. GASTROINTESTINAL: Denies abdominal pain, diarrhea, constipation, nausea or vomiting. MUSCULOSKELETAL: Denies myalgias. NEUROLOGIC: Denies numbness, tingling or weakness. ENDOCRINE: Denies fatigue, weight change, polydipsia or polyurina. GENITOURINARY: Denies burning, hematuria or urgency with micturation. HEMATOLOGIC: Denies history of anemia or bleeding. PHYSICAL EXAMINATION Blood pressure 192/81 heart rate and before afebrile and maintaining oxygen saturation on room air. CONSTITUTIONAL: No apparent distress. HEENT: Head is normocephalic. Pupils are equal, round. Sclerae anicteric. Mucous membranes of the mouth are moist. No JVD. No carotid bruit. CHEST EXAMINATION: Lungs are clear to auscultation. No chest wall tenderness is noted on palpation or with deep breathing. HEART EXAMINATION: Regular rate and rhythm. S1, S2 heard. Systolic ejection murmur at the left sternal border, no gallops or rub. ABDOMEN: Soft, nontender. Positive bowel sounds. EXTREMITIES: 2+ peripheral pulses, trace bilateraly lower extremity non pitting edema with genearlized erythema and no hair growth suggestive of poor circu lation. No calf tenderness. NEUROLOGIC EXAMINATION: Patient is awake, alert and oriented to self, unwilling to answer questions about date and time. Quite agitated. ASSESSMENT Left lobe pneumonia Urinary trace infection Altered mental status Paroxysmal atrial fibrillation on correction anti-coagulation with Eliquis. Currently maintaining sinus mechanism. Hypertension Dyslipidemia Fibromyalgia Diabetes mellitus Obesity, BMI 38 PLAN Records requested from her oracle database manager indicate she has a history of paroxysmal atrial fibrillation and that is the reason for Eliquis. The patient herself is a poor historian. monitoring and evaluation advisor can be discontinued. Ongoing medical management of pneumonia and other co-morbid conditions. We will follow as needed, please call with further questions or concerns. Thank you kindly for this consultation. Nurse Practitioner note has been reviewed, I agree with a documented findings and plan of care. Patient was seen and examined. Past Medical History Past Medical History: Chest Pain / Angina, Diabetes Mellitus, Fibromyalgia, GERD/Reflux, Hyperlipidemia, Hypertension, Osteoarthritis (OA), Renal Disease, Rheumatoid Arthritis (RA), Thyroid Disorder Additional Past Medical History / Comment(s): BURSITIS, falls, chronic sacral wound, Vertigo, anemia History of Any Multi-Drug Resistant Organisms: None Reported Past Surgical History: Adenoidectomy, Cholecystectomy, Hysterectomy, Orthopedic Surgery, Tonsillectomy Additional Past Surgical History / Comment(s): 3 RIGHT KNEE SURGERIES AND 2 LEFT TOTAL KNEE REPLACEMENTS SURGERIES. D&C'S. Lap Ignacio-en-Y gastric bypass [place] [address] Zambrano , total hysterectomy for fibroid tumor, tubal ligation Past Anesthesia/Blood Transfusion Reactions: Motion Sickness Additional Past Anesthesia/Blood Transfusion Reaction / Comment(s): Pt received blood in 2012 without reaction. Past Psychological History: No Psychological Hx Reported Additional Psychological History / Comment(s): PT'S 44 YEAR OLD SON JANUARY 2014 AND THEY HAVE GAURDIANSHIP OF HIS DAUGHTER. Smoking Status: Never smoker Past Alcohol Use History: None Reported Past Drug Use History: None Reported - Past Family History Mother Family Medical History: Coronary Artery Disease (CAD) Additional Family Medical History / Comment(s): age 90 of heart failure. Had hx of Parkinsons and Narcolepsy Father Family Medical History: Coronary Artery Disease (CAD) Additional Family Medical History / Comment(s): age 73 of massive heart attack Medications and Allergies Home Medications Medication Instructions Recorded Confirmed Type Bumetanide [BUMEX] 1 mg PO BID PRN 10/02/14 05/01/19 History Cholecalciferol [Vitamin D3 (25 2,000 unit PO TID 10/02/14 05/01/19 History Mcg = 1000 Iu)] Fluticasone Propionate [Flonase 2 spray EA NOSTRIL BID 10/02/14 05/01/19 History Allergy Relief] Pantoprazole Sodium 40 mg PO AC-BRKFST 10/02/14 05/01/19 History cycloSPORINE [Restasis] 1 drop BOTH EYES BID 10/02/14 05/01/19 History DULoxetine HCL [Cymbalta] 60 mg PO HS 04/16/15 05/01/19 History traZODone HCL [Desyrel] 50 mg PO HS 06/06/15 05/01/19 History Diclofenac Sodium [Voltaren Gel] 2 gram TOPICAL DAILY PRN 12/16/16 05/01/19 History Gabapentin [Neurontin] 100 mg PO AC-BID@1200,1800 12/16/16 05/01/19 History Levothyroxine Sodium [Synthroid] 137 mcg PO AC-BRKFST 12/16/16 05/01/19 History HYDROcodone/APAP 7.5-325MG [M[place]ry 1 tab PO TID PRN 04/13/17 05/01/19 History 7.5-325] Loteprednol Etabonate [Lotemax] 1 drop BOTH EYES DAILY 04/13/17 05/01/19 History Doxercalciferol [Hectorol] 0.5 mcg PO MOTUWETHFR@2100 07/04/17 05/01/19 History Repaglinide [Prandin] 2 mg PO AC-TID 07/04/17 05/01/19 History SILVER sulfADIAZINE Cream 1 applic TOPICAL DAILY PRN 07/04/17 05/01/19 History [Silvadene 1% Cream] Apixaban [Eliquis] 5 mg PO BID-W/MEALS 09/27/18 05/01/19 History Optive Eye Drop 1 drop BOTH EYES DAILY 09/27/18 05/01/19 History Pravastatin Sodium [Pravachol] 20 mg PO AC-SUPPER 09/27/18 05/01/19 History Acetaminophen [Tylenol] 500 mg PO Q4H PRN 04/03/19 05/01/19 History Insulin Aspart [NovoLOG Flexpen] See Protocol SQ AC-TID 04/03/19 05/01/19 History Insulin Detemir [Levemir Flextouch] See Protocol SQ HS 04/03/19 05/01/19 History Carvedilol [Coreg] 6.25 mg PO BID-W/MEALS 05/01/19 05/01/19 History Cinnamon 250 Mg 250 mg PO AC-BID@0700,1200 05/01/19 05/01/19 History Milk Thistle 200 Mg 200 mg PO W/LUNCH 05/01/19 05/01/19 History amLODIPine [Norvasc] 5 mg PO DAILY 05/01/19 05/01/19 History Allergies Allergy/AdvReac Type Severity Reaction Status Date / Time adhesive tape Allergy Rash/Hives Verified 05/01/19 07:47 insect venom Allergy Swelling Verified 05/01/19 07:47 triamcinolone Allergy Unknown Verified 05/01/19 07:47 venom-honey bee Allergy Swelling Verified 05/01/19 07:47 caffeine AdvReac Nausea & Verified 05/01/19 07:47 Vomiting & Diarrhea hydrocodone bitartrate AdvReac Itching Verified 05/01/19 07:47 [From Lorcet (hydrocodone)] Penicillins AdvReac Nausea & Verified 05/01/19 07:47 Vomiting & Diarrhea tramadol HCl [From Ultram] AdvReac Itching Verified 05/01/19 07:47 Physical Exam Vitals: Vital Signs Temp Pulse Pulse Resp BP BP Pulse Ox 05/02/19 07:00 97.8 F 74 12 192/81 94 L 05/02/19 00:45 97.7 F 70 16 160/78 95 05/02/19 00:00 16 05/01/19 19:28 98.3 F 70 16 167/78 100 05/01/19 16:57 80 05/01/19 16:46 80 05/01/19 15:00 97.7 F 71 29 H 177/93 100 05/01/19 14:54 97.6 F 70 18 136/76 98 Intake and Output 05/01/19 05/02/19 05/02/19 22:59 06:59 14:59 Intake Total 1680 240 Balance 1680 240 Intake: IV 50 cefTRIAXone 1 gm In 50 Sodium Chloride 0.9% 50 ml @ 100 mls/hr IVPB Q24HR [facility] Rx#:[id number] Intake, IV Titration 650 Amount Sodium Chloride 0.9% 1, 650 000 ml @ 50 mls/hr IV . Q20H [facility] Rx#:[id number] Oral 980 240 Other: Voiding Method Toilet Toilet # Voids 1 1 # Bowel Movements 1 Weight 95.254 kg Results 05/02/19 07:05 05/02/19 07:05 Cardiac Enzymes 05/02/19 Range/Units 07:05 AST 58 H (14-36) U/L CBC 05/02/19 Range/Units 07:05 WBC 6.4 (3.8-10.6) k/uL RBC 4.15 (3.80-5.40) m/uL Hgb 12.5 (11.4-16.0) gm/dL Hct 38.7 (34.0-46.0) % Plt Count 179 (150-450) k/uL Comprehensive Metabolic Panel 05/02/19 Range/Units 07:05 Sodium 140 (137-145) mmol/L Potassium 4.1 (3.5-5.1) mmol/L Chloride 109 H (98-107) mmol/L Carbon Dioxide 22 (22-30) mmol/L BUN 18 H (7-17) mg/dL Creatinine 0.76 (0.52-1.04) mg/dL Glucose 182 H (74-99) mg/dL Calcium 9.4 (8.4-10.2) mg/dL AST 58 H (14-36) U/L ALT 44 (9-52) U/L Alkaline Phosphatase 89 (38-126) U/L Total Protein 6.7 (6.3-8.2) g/dL Albumin 3.6 (3.5-5.0) g/dL Current Medications Generic Name Dose Route Start Last Admin Trade Name Freq PRN Reason Stop Dose Admin Acetaminophen 650 mg 04/30/19 22:15 05/01/19 13:43 Tylenol Tab PO 650 mg Q6HR PRN Administration Mild Pain or Fever > 100.5 Hydrocodone Bitart/Acetaminophen 1 each 05/01/19 08:13 05/02/19 02:06 Mchenry 7.5-325 PO 1 each TID PRN Administration Pain Albuterol/Ipratropium 3 ml 05/01/19 12:00 05/02/19 08:36 Duoneb 0.5 Mg-3 Mg/3 Ml Soln INHALATION Not Given RT-QID BUTCH Albuterol/Ipratropium 3 ml 05/01/19 08:21 Duoneb 0.5 Mg-3 Mg/3 Ml Soln INHALATION RT-Q2H PRN Shortness Of Breath Or Wheezing Amlodipine Besylate 5 mg 05/01/19 09:00 05/02/19 07:54 Norvasc PO 5 mg DAILY BUTCH Administration Apixaban 5 mg 05/01/19 17:30 05/02/19 07:53 Eliquis PO 5 mg BID-W/MEALS BUTCH Administration Azithromycin 500 mg 05/01/19 22:16 05/02/19 07:54 Zithromax PO 500 mg DAILY BUTCH Administration Bumetanide 1 mg 05/01/19 08:13 Bumex PO BID PRN Edema Carvedilol 6.25 mg 05/01/19 08:30 05/02/19 07:53 Coreg PO 6.25 mg BID-W/MEALS BUTCH Administration Cholecalciferol 2,000 unit 05/01/19 09:00 05/02/19 07:53 Vitamin D3 (25 Mcg = 1000 Iu) PO 2,000 unit TID BUTCH Administration Cyclosporine 1 drops 05/01/19 09:00 05/02/19 07:55 Restasis 0.05% Ophth Soln BOTH EYES 1 drops BID BUTCH Administration Doxercalciferol 0.5 mcg 05/01/19 21:00 05/01/19 23:08 Hectorol PO 0.5 mcg MOTUWETHFR@2100 BUTCH Administration Duloxetine HCl 60 mg 05/01/19 21:00 05/01/19 20:24 Cymbalta PO 60 mg HS BUTCH Administration Fluticasone Propionate 2 spray 05/01/19 09:00 05/02/19 07:57 Flonase Nasal [place] EA NOSTRIL Not Given BID BUTCH Gabapentin 100 mg 05/01/19 12:00 05/01/19 17:50 Neurontin PO 100 mg AC-BID@1200,1800 BUTCH Administration Hydromorphone HCl 0.5 mg 05/01/19 20:04 05/01/19 20:26 Dilaudid IVP 0.5 mg Q3HR PRN Administration Pain Sodium Chloride 1,000 mls @ 50 mls/hr 04/30/19 22:15 05/02/19 03:58 Saline 0.9% IV Not Given .Q20H BUTCH Ceftriaxone Sodium 1 gm/ 50 mls @ 100 mls/hr 05/01/19 22:16 05/02/19 07:53 Sodium Chloride IVPB 05/04/19 22:17 100 mls/hr Q24HR BUTCH Administration Insulin Aspart 0 unit 05/01/19 07:30 05/02/19 07:52 Novolog SQ 2 unit ACHS BUTCH Administration Protocol Levothyroxine Sodium 137 mcg 05/01/19 08:30 05/02/19 07:54 Synthroid PO 137 mcg AC-BRKFST BUTCH Administration Miscellaneous Information 1 each 04/30/19 22:15 Pneumonia Protocol Utilized PO ONCE PRN Per Protocol Naloxone HCl 0.2 mg 04/30/19 22:15 Narcan IV Q2M PRN Opioid Reversal Pantoprazole Sodium 40 mg 05/01/19 08:30 05/02/19 07:54 Protonix PO 40 mg AC-BRKFST BUTCH Administration Pravastatin Sodium 20 mg 05/01/19 17:30 05/01/19 16:54 Pravachol PO 20 mg AC-SUPPER BUTCH Administration Prednisolone Acetate 1 drops 05/01/19 09:00 05/01/19 11:32 Pred Forte 1% BOTH EYES 1 drops DAILY BUTCH Administration Silver Sulfadiazine 1 applic 05/01/19 08:13 Silvadene Cream TOPICAL DAILY PRN Skin Irritation Trazodone HCl 50 mg 05/01/19 21:00 05/01/19 20:25 Desyrel PO 50 mg HS BUTCH Administration Intake and Output 05/01/19 05/02/19 05/02/19 22:59 06:59 14:59 Intake Total 1680 240 Balance 1680 240 Intake: IV 50 cefTRIAXone 1 gm In 50 Sodium Chloride 0.9% 50 ml @ 100 mls/hr IVPB Q24HR [facility] Rx#:[id number] Intake, IV Titration 650 Amount Sodium Chloride 0.9% 1, 650 000 ml @ 50 mls/hr IV . Q20H [facility] Rx#:[id number] Oral 980 240 Other: Voiding Method Toilet Toilet # Voids 1 1 # Bowel Movements 1 Weight 95.254 kg 05/02/19 07:05 05/02/19 07:05
--- NOTE | 2019-05-02 14:59 | P.DS ---
Providers Date of admission: 04/30/19 22:15 Expected date of discharge: 05/02/19 Attending physician: Taina Vergara Consults: 05/01/19 10:49 Consult Physician Routine Consulting Provider: Eli Kebede Consult Reason/Comments: On eliquis, follows with personal banking advisor out of [facility] Do you want consulting provider notified?: Yes 05/01/19 10:50 Consult Physician Routine Consulting Provider: Leilani Bailey Consult Reason/Comments: Pneumonia Do you want consulting provider notified?: Yes Primary care physician: Reji Bartholomew [facility] Course: Discharge diagnosis Patient left AGAINST MEDICAL ADVICE 1. Altered mental status changes likely secondary to hypoglycemia and pneumonia. Head CT completed showing patchy white matter hypodensity that could relate to chronic small vessel ischemia. No acute intracranial abnormality. No change. 2. Left lower lobe Pneumonia. Chest x-ray completed showing mild left lower lobe pneumonia. No heart failure seen. Inspiration decreased compared to old exam. Patient on azithromycin and Rocephin. Sputum culture ordered. Blood culture ordered. Pulmonary service is consulted 3. Diabetes mellitus type 2. All home medications currently on hold sliding scale insulin added. Will order hemoglobin A1c 4. Urinary tract infection. Urine showing small amount of leukocyte Estrace. Urine culture added. Patient currently covered with Rocephin 5. Currently maintained on eliquis. Patient and family unsure of reasoning for eliquis. Reports that this was started per her personal banking advisor out of her district. Denies any history of atrial fibrillation, PE or DVT. Will consult cardiology services to further investigate. EKG has been ordered 6. History of essential hypertension. Home medications resumed 7. History of fibromyalgia 8. History of hyperlipidemia. Maintained on statin 9. History of rheumatoid arthritis 10. History of hypothyroidism. Maintained on Synthroid. TSH level ordered Hospital course This is a 73-year-old female patient of Dr. Bartholomew. Patient presented with altered mental status changes. Per patient's patient was acting strange and was found to have a low blood sugar of 31. patient also reports that she overall has not been feeling well including nausea and some coughing. Patient also having chills. Patient also has extensive medical history including chest pain, diabetes mellitus, fibromyalgia, GERD, hyperlipidemia, hypertension, arthritis, renal disease, rheumatoid arthritis, hypothyroidism, cholecystectomy and previous Ignacio-en-Y gastric bypass surgery. Patient also is currently on eliquis in which patient and patient's unable to state why. Per patient's this was started per her personal banking advisor out of [facility]. Denies any history of atrial fibrillation, PE or DVT. CT completed showing patchy white matter hypodensity that could relate to chronic small vessel ischemia. No acute intracranial abnormality. No change. Chest x-ray completed showing mild left lower lobe pneumonia. No heart failure seen. Inspiration decreased compared to old exam. Urinary analysis showing trace amount of leukocyte Estrace. Urine culture will be ordered. Started on Rocephin and azithromycin for pneumonia. DuoNeb breathing treatments ordered. Pulmonary and cardiology services have been consulted. Blood and sputum cultures ordered. Patient has been verbally aggressive and uncooperative with multiple staff members including cardiology consult and nursing staff insisting that she is going to leave A. It was explained to patient she was diagnosed with pneumonia and pulmonary services are to see her. Patient insists that she is not a child and she is leaving. Patient's at bedside willing to take her home at this time. Per nursing staff it was advised that she follow-up closely with PCP I performed an examination of the patient and discussed their management with the Nurse Practitioner. I have reviewed the Nurse Practitioner's notes and agree with the documented findings and plan of care Patient Condition at Discharge: Stable Plan - Discharge Summary Discharge Rx Participant: No New Discharge Prescriptions: No Action Bumetanide [BUMEX] 1 mg PO BID PRN PRN Reason: Edema cycloSPORINE [Restasis] 1 drop BOTH EYES BID Cholecalciferol [Vitamin D3 (25 Mcg = 1000 Iu)] 2,000 unit PO TID Fluticasone Propionate [Flonase Allergy Relief] 2 spray EA NOSTRIL BID Pantoprazole Sodium 40 mg PO AC-BRKFST DULoxetine HCL [Cymbalta] 60 mg PO HS traZODone HCL [Desyrel] 50 mg PO HS Gabapentin [Neurontin] 100 mg PO AC-BID@1200,1800 Levothyroxine Sodium [Synthroid] 137 mcg PO AC-BRKFST Diclofenac Sodium [Voltaren Gel] 2 gram TOPICAL DAILY PRN PRN Reason: Pain HYDROcodone/APAP 7.5-325MG [[place] 7.5-325] 1 tab PO TID PRN PRN Reason: Pain Loteprednol Etabonate [Lotemax] 1 drop BOTH EYES DAILY SILVER sulfADIAZINE Cream [Silvadene 1% Cream] 1 applic TOPICAL DAILY PRN PRN Reason: Skin Irritation Doxercalciferol [Hectorol] 0.5 mcg PO MOTUWETHFR@2100 Repaglinide [Prandin] 2 mg PO AC-TID Optive Eye Drop 1 drop BOTH EYES DAILY Apixaban [Eliquis] 5 mg PO BID-W/MEALS Pravastatin Sodium [Pravachol] 20 mg PO AC-SUPPER Acetaminophen [Tylenol] 500 mg PO Q4H PRN PRN Reason: Pain Insulin Detemir [Levemir Flextouch] See Protocol SQ HS Insulin Aspart [NovoLOG Flexpen] See Protocol SQ AC-TID Cinnamon 250 Mg 250 mg PO AC-BID@0700,1200 Milk Thistle 200 Mg 200 mg PO W/LUNCH amLODIPine [Norvasc] 5 mg PO DAILY Carvedilol [Coreg] 6.25 mg PO BID-W/MEALS Discharge Medication List Bumetanide [BUMEX] 1 mg PO BID PRN 10/02/14 [History] Cholecalciferol [Vitamin D3 (25 Mcg = 1000 Iu)] 2,000 unit PO TID 10/02/14 [History] Fluticasone Propionate [Flonase Allergy Relief] 2 spray EA NOSTRIL BID 10/02/14 [History] Pantoprazole Sodium 40 mg PO AC-BRKFST 10/02/14 [History] cycloSPORINE [Restasis] 1 drop BOTH EYES BID 10/02/14 [History] DULoxetine HCL [Cymbalta] 60 mg PO HS 04/16/15 [History] traZODone HCL [Desyrel] 50 mg PO HS 06/06/15 [History] Diclofenac Sodium [Voltaren Gel] 2 gram TOPICAL DAILY PRN 12/16/16 [History] Gabapentin [Neurontin] 100 mg PO AC-BID@1200,1800 12/16/16 [History] Levothyroxine Sodium [Synthroid] 137 mcg PO AC-BRKFST 12/16/16 [History] HYDROcodone/APAP 7.5-325MG [[place] 7.5-325] 1 tab PO TID PRN 04/13/17 [History] Loteprednol Etabonate [Lotemax] 1 drop BOTH EYES DAILY 04/13/17 [History] Doxercalciferol [Hectorol] 0.5 mcg PO MOTUWETHFR@2100 07/04/17 [History] Repaglinide [Prandin] 2 mg PO AC-TID 07/04/17 [History] SILVER sulfADIAZINE Cream [Silvadene 1% Cream] 1 applic TOPICAL DAILY PRN 07/04/17 [History] Apixaban [Eliquis] 5 mg PO BID-W/MEALS 09/27/18 [History] Optive Eye Drop 1 drop BOTH EYES DAILY 09/27/18 [History] Pravastatin Sodium [Pravachol] 20 mg PO AC-SUPPER 09/27/18 [History] Acetaminophen [Tylenol] 500 mg PO Q4H PRN 04/03/19 [History] Insulin Aspart [NovoLOG Flexpen] See Protocol SQ AC-TID 04/03/19 [History] Insulin Detemir [Levemir Flextouch] See Protocol SQ HS 04/03/19 [History] Carvedilol [Coreg] 6.25 mg PO BID-W/MEALS 05/01/19 [History] Cinnamon 250 Mg 250 mg PO AC-BID@0700,1200 05/01/19 [History] Milk Thistle 200 Mg 200 mg PO W/LUNCH 05/01/19 [History] amLODIPine [Norvasc] 5 mg PO DAILY 05/01/19 [History] Follow up Appointment(s)/Referral(s): Reji Bartholomew MD [Primary Care Provider] - 1-2 days Discharge Disposition: Left Against Medical Advice
== END 2019-05-02 12:45 | disposition left against medical advice (07) | DRG 194 ==
LOC: EC 20:16 → 4SSUR 22:15
PROVIDERS: ADMIT Internal Medicine; ATTEND Internal Medicine
DX: J18.9 Pneumonia, unspecified organism (principal); N39.0 Urinary tract infection, site not specified; E03.9 Hypothyroidism, unspecified; E11.22 Type 2 diabetes mellitus with diabetic chronic kidney disease; E11.649 Type 2 diabetes mellitus with hypoglycemia without coma; E66.9 Obesity, unspecified; Z68.38 Body mass index [BMI] 38.0-38.9, adult; E78.5 Hyperlipidemia, unspecified; I12.9 Hypertensive chronic kidney disease with stage 1 through stage 4 chronic kidney disease, or unspecified chronic kidney disease; I27.20 Pulmonary hypertension, unspecified; I48.0 Paroxysmal atrial fibrillation; M06.9 Rheumatoid arthritis, unspecified; M79.7 Fibromyalgia; N18.9 Chronic kidney disease, unspecified; Z79.01 Long term (current) use of anticoagulants; Z79.4 Long term (current) use of insulin; Z79.890 Hormone replacement therapy; Z79.899 Other long term (current) drug therapy; Z82.0 Family history of epilepsy and other diseases of the nervous system; Z82.49 Family history of ischemic heart disease and other diseases of the circulatory system; Z90.710 Acquired absence of both cervix and uterus; Z98.84 Bariatric surgery status; Z91.81 History of falling; Z96.652 Presence of left artificial knee joint; I08.0 Rheumatic disorders of both mitral and aortic valves; Z88.5 Allergy status to narcotic agent; Z88.0 Allergy status to penicillin; Z91.030 Bee allergy status; M19.90 Unspecified osteoarthritis, unspecified site
CPT/HCPCS: 36415; 70450; 71045; 80053; 80306; 81001; 83036; 84439; 84443; 84484; 85025; 85610; 85730; 87040; 87086; 93005; 94640; 96361; 96365; 96366; 99285

== ENCOUNTER 2019-06-08 21:14 | Observation (INO) | payer MEDICARE, BC ==
[2019-06-08] MEDS ORDERED: SODIUM CHLORIDE 0.9% 1,000 ML IV STA (21:41)
--- NOTE | 2019-06-08 21:45 | ED ---
Altered Mental Status HPI - General Stated Complaint: Altered Mental Status Time Seen by Provider: 06/08/19 21:41 Source: RN notes reviewed, old records reviewed Limitations: no limitations - History of Present Illness Initial Comments: This is a 74-year-old female here for evaluation patient is a poor historian brought in with bedbugs, patient is cleaned here in the ER and brought into room. Patient is unresponsive is found to have low blood sugar which, due to poor mental status is patient is poor historian, brought to ED by EMS MD Complaint: confusion, decreased responsiveness, weakness -: unknown Severity: severe Context: history of similar presentation Associated Symptoms: nausea/vomiting, weakness Treatments Prior to Arrival: glucose - Related Data Home Medications Medication Instructions Recorded Confirmed Bumetanide [BUMEX] 1 mg PO BID PRN 10/02/14 06/09/19 Cholecalciferol [Vitamin D3 (25 2,000 unit PO TID 10/02/14 06/09/19 Mcg = 1000 Iu)] Fluticasone Propionate [Flonase 2 spray EA NOSTRIL BID 10/02/14 06/09/19 Allergy Relief] Pantoprazole Sodium 40 mg PO AC-BRKFST 10/02/14 06/09/19 cycloSPORINE [Restasis] 1 drop BOTH EYES BID 10/02/14 06/09/19 DULoxetine HCL [Cymbalta] 60 mg PO HS 04/16/15 06/09/19 traZODone HCL [Desyrel] 50 mg PO HS 06/06/15 06/09/19 Diclofenac Sodium [Voltaren Gel] 2 gram TOPICAL DAILY PRN 12/16/16 06/09/19 Gabapentin [Neurontin] 100 mg PO AC-BID@1200,1800 12/16/16 06/09/19 Levothyroxine Sodium [Synthroid] 137 mcg PO AC-BRKFST 12/16/16 06/09/19 HYDROcodone/APAP 7.5-325MG [[place] 1 tab PO TID PRN 04/13/17 06/09/19 7.5-325] Loteprednol Etabonate [Lotemax] 1 drop BOTH EYES DAILY 04/13/17 06/09/19 Doxercalciferol [Hectorol] 0.5 mcg PO MOTUWETHFR@2100 07/04/17 06/09/19 SILVER sulfADIAZINE Cream 1 applic TOPICAL DAILY PRN 07/04/17 06/09/19 [Silvadene 1% Cream] Apixaban [Eliquis] 5 mg PO BID-W/MEALS 09/27/18 06/09/19 Optive Eye Drop 1 drop BOTH EYES DAILY 09/27/18 06/09/19 Pravastatin Sodium [Pravachol] 20 mg PO AC-SUPPER 09/27/18 06/09/19 Acetaminophen [Tylenol] 500 mg PO Q4H PRN 04/03/19 06/09/19 Carvedilol [Coreg] 6.25 mg PO BID-W/MEALS 05/01/19 06/09/19 Cinnamon 250 Mg 250 mg PO AC-BID@0700,1200 05/01/19 06/09/19 Milk Thistle 200 Mg 200 mg PO W/LUNCH 05/01/19 06/09/19 Previous Rx's Medication Instructions Recorded Insulin Aspart [NovoLOG Flexpen] See Protocol SQ AC-TID #0 06/11/19 Insulin Detemir [Levemir Flextouch] 10 units SQ HS #0 06/11/19 Levofloxacin [Levaquin] 250 mg PO DAILY #5 tab 06/11/19 amLODIPine [Norvasc] 5 mg PO BID #60 tab 06/11/19 Allergies Allergy/AdvReac Type Severity Reaction Status Date / Time adhesive tape Allergy Rash/Hives Verified 06/09/19 10:17 insect venom Allergy Swelling Verified 06/09/19 10:17 triamcinolone Allergy Unknown Verified 06/09/19 10:17 venom-honey bee Allergy Swelling Verified 06/09/19 10:17 caffeine AdvReac Nausea & Verified 06/09/19 10:17 Vomiting & Diarrhea hydrocodone bitartrate AdvReac Itching Verified 06/09/19 10:17 [From Lorcet (hydrocodone)] Penicillins AdvReac Nausea & Verified 06/09/19 10:17 Vomiting & Diarrhea tramadol HCl [From Ultram] AdvReac Itching Verified 06/09/19 10:17 Review of Systems ROS Statement: Those systems with pertinent positive or pertinent negative responses have been documented in the HPI. ROS Other: All systems not noted in ROS Statement are negative. Past Medical History Past Medical History: Chest Pain / Angina, Diabetes Mellitus, Fibromyalgia, GERD/Reflux, Hyperlipidemia, Hypertension, Osteoarthritis (OA), Renal Disease, Rheumatoid Arthritis (RA), Thyroid Disorder Additional Past Medical History / Comment(s): BURSITIS, falls, chronic sacral wound, Vertigo, anemia History of Any Multi-Drug Resistant Organisms: None Reported Past Surgical History: Adenoidectomy, Cholecystectomy, Hysterectomy, Orthopedic Surgery, Tonsillectomy Additional Past Surgical History / Comment(s): 3 RIGHT KNEE SURGERIES AND 2 LEFT TOTAL KNEE REPLACEMENTS SURGERIES. D&C'S. Lap Ignacio-en-Y gastric bypass [place] [address] Zambrano , total hysterectomy for fibroid tumor, tubal ligation Past Anesthesia/Blood Transfusion Reactions: Motion Sickness Additional Past Anesthesia/Blood Transfusion Reaction / Comment(s): Pt received blood in 2012 without reaction. Past Psychological History: No Psychological Hx Reported Additional Psychological History / Comment(s): PT'S 44 YEAR OLD SON JANUARY 2014 AND THEY HAVE GAURDIANSHIP OF HIS DAUGHTER. Smoking Status: Never smoker Past Alcohol Use History: None Reported Past Drug Use History: None Reported - Past Family History Mother Family Medical History: Coronary Artery Disease (CAD) Additional Family Medical History / Comment(s): age 90 of heart failure. Had hx of Parkinsons and Narcolepsy Father Family Medical History: Coronary Artery Disease (CAD) Additional Family Medical History / Comment(s): age 73 of massive heart attack General Exam Limitations: altered mental status General appearance: alert, in no apparent distress Head exam: Present: atraumatic, normocephalic, normal inspection Eye exam: Present: normal appearance, PERRL, EOMI. Absent: scleral icterus, conjunctival injection, periorbital swelling ENT exam: Present: normal exam, mucous membranes moist Neck exam: Present: normal inspection. Absent: tenderness, meningismus, lymphadenopathy Respiratory exam: Present: normal lung sounds bilaterally. Absent: respiratory distress, wheezes, rales, rhonchi, stridor Cardiovascular Exam: Present: regular rate, normal rhythm, normal heart sounds. Absent: systolic murmur, diastolic murmur, rubs, gallop, clicks GI/Abdominal exam: Present: soft, normal bowel sounds. Absent: distended, tenderness, guarding, rebound, rigid Extremities exam: Present: normal inspection, full ROM, normal capillary refill. Absent: tenderness, pedal edema, joint swelling, calf tenderness Back exam: Present: normal inspection Neurological exam: Present: alert, oriented X3, CN II-XII intact Psychiatric exam: Present: normal affect, normal mood Skin exam: Present: warm, dry, intact, normal color. Absent: rash Course Vital Signs 06/08/19 06/09/19 21:43 01:28 Temperature 98.7 F 97.4 F L Pulse Rate 53 L Pulse Rate [ 65 Left Sitting Pulse Oximetery ] Respiratory 18 16 Rate Blood Pressure 148/93 Blood Pressure 150/77 [Left Arm Sitting] O2 Sat by Pulse 96 98 Oximetry - Reevaluation(s) Reevaluation #1: 06/08/19 23:23 Medical record is reviewed Reevaluation #2: 06/08/19 23:23 Sugar low which is improved here in the ER with administration of sugar Medical Decision Making - Medical Decision Making 74 female here for evaluation of altered mental status significant hypoglycemia symptoms are improved here in the ER patient distal anterior feel weak, does not feel herself. She does take medication as prescribed - Lab Data Result diagrams: 06/09/19 00:00 06/11/19 09:00 Lab Results 06/08/19 06/08/19 06/09/19 Range/Units 21:47 22:50 00:00 WBC 9.4 (3.8-10.6) k/uL RBC 4.20 (3.80-5.40) m/uL Hgb 12.5 (11.4-16.0) gm/dL Hct 40.1 (34.0-46.0) % MCV 95.6 (80.0-100.0) fL MCH 29.9 (25.0-35.0) pg MCHC 31.3 (31.0-37.0) g/dL RDW 16.8 H (11.5-15.5) % Plt Count 237 (150-450) k/uL Neutrophils % 84 % Lymphocytes % 9 % Monocytes % 4 % Eosinophils % 2 % Basophils % 0 % Neutrophils # 7.9 H (1.3-7.7) k/uL Lymphocytes # 0.8 L (1.0-4.8) k/uL Monocytes # 0.4 (0-1.0) k/uL Eosinophils # 0.1 (0-0.7) k/uL Basophils # 0.0 (0-0.2) k/uL Anisocytosis Slight Sodium (137-145) mmol/L Potassium (3.5-5.1) mmol/L Chloride (98-107) mmol/L Carbon Dioxide (22-30) mmol/L Anion Gap mmol/L BUN (7-17) mg/dL Creatinine (0.52-1.04) mg/dL Est GFR (CKD-EPI)AfAm (>60 ml/min/1.73 sqM) Est GFR (CKD-EPI)NonAf (>60 ml/min/1.73 sqM) Glucose (74-99) mg/dL POC Glucose (mg/dL) 85 56 L (75-99) mg/dL POC Glu Steel Rod Buster ID Callewaert, Nika Callmichelleaert, Nika Calcium (8.4-10.2) mg/dL Phosphorus (2.5-4.5) mg/dL Magnesium (1.6-2.3) mg/dL Total Bilirubin (0.2-1.3) mg/dL AST (14-36) U/L ALT (4-34) U/L Alkaline Phosphatase (38-126) U/L Troponin I (0.000-0.034) ng/mL Total Protein (6.3-8.2) g/dL Albumin (3.5-5.0) g/dL TSH (0.465-4.680) mIU/L 06/09/19 06/09/19 06/09/19 Range/Units 00:00 00:00 00:01 WBC (3.8-10.6) k/uL RBC (3.80-5.40) m/uL Hgb (11.4-16.0) gm/dL Hct (34.0-46.0) % MCV (80.0-100.0) fL MCH (25.0-35.0) pg MCHC (31.0-37.0) g/dL RDW (11.5-15.5) % Plt Count (150-450) k/uL Neutrophils % % Lymphocytes % % Monocytes % % Eosinophils % % Basophils % % Neutrophils # (1.3-7.7) k/uL Lymphocytes # (1.0-4.8) k/uL Monocytes # (0-1.0) k/uL Eosinophils # (0-0.7) k/uL Basophils # (0-0.2) k/uL Anisocytosis Sodium 137 (137-145) mmol/L Potassium 3.9 (3.5-5.1) mmol/L Chloride 102 (98-107) mmol/L Carbon Dioxide 26 (22-30) mmol/L Anion Gap 9 mmol/L BUN 39 H (7-17) mg/dL Creatinine 1.14 H (0.52-1.04) mg/dL Est GFR (CKD-EPI)AfAm 55 (>60 ml/min/1.73 sqM) Est GFR (CKD-EPI)NonAf 48 (>60 ml/min/1.73 sqM) Glucose 165 H (74-99) mg/dL POC Glucose (mg/dL) 177 H (75-99) mg/dL POC Glu Steel Rod Buster Jennifer Anderson Calcium 9.7 (8.4-10.2) mg/dL Phosphorus 4.2 (2.5-4.5) mg/dL Magnesium 1.9 (1.6-2.3) mg/dL Total Bilirubin 0.6 (0.2-1.3) mg/dL AST 358 H (14-36) U/L ALT 106 H (4-34) U/L Alkaline Phosphatase 164 H (38-126) U/L Troponin I <0.012 (0.000-0.034) ng/mL Total Protein 7.1 (6.3-8.2) g/dL Albumin 4.0 (3.5-5.0) g/dL TSH 2.170 (0.465-4.680) mIU/L - EKG Data -: EKG Interpreted by Me (EKG shows sinus bradycardia rate of 51,MN 176, QRS 126, QTc 449) - Radiology Data Radiology results: report reviewed (Chest x-ray CT brain negative for acute disease), image reviewed Disposition Clinical Impression: Hypoglycemia, Insulin dependent type 2 diabetes mellitus, Altered mental status Disposition: ADMITTED IP TO THIS HOSP Condition: Stable Is patient prescribed a controlled substance at d/c from ED?: No
[2019-06-08 21:48] LABS: Glucose,Whole Blood 85 mg/dL (75-99)
--- NOTE | 2019-06-08 22:29 | CT ---
EXAMINATION TYPE: CT brain wo con DATE OF EXAM: 06/08/2019 COMPARISON: 04/30/2019 HISTORY: Weakness and altered mental status. CT DLP: 1047.4 mGycm Automated exposure control for dose reduction was used. There is mild hypodensity in the periventricular white matter. There is no mass effect or midline leonela ft. There is no sign of intracranial hemorrhage. There is no evidence of cortical infarct. Calvarium is intact. IMPRESSION: White matter hypodensity could relate to chronic small vessel ischemia or demyelinating disease. No a cute intracranial abnormality. No significant change.
--- NOTE | 2019-06-08 22:40 | XR ---
EXAMINATION TYPE: XR chest 2V DATE OF EXAM: 06/08/2019 COMPARISON: 04/30/2019 HISTORY: Altered mental status TECHNIQUE: 2 views FINDINGS: There is some linear density at the left lung base. There is no heart failure. There are ch est leads. Heart is probably enlarged. Bony thorax is intact. IMPRESSION: There is mild atelectasis left lung base improved compared to last exam. No heart failure seen. Inspiration improved compared to last exam.
[2019-06-08] MEDS ORDERED: DEXTROSE 50% SYRINGE 50 ML IVP STA (22:55)
[2019-06-08 23:01] LABS: Glucose,Whole Blood 56 mg/dL (75-99)
[2019-06-09 00:11] LABS: Glucose,Whole Blood 177 mg/dL (75-99)
[2019-06-09 00:42] LABS: Anisocytosis Slight; Basophils % (A) 0 %; Eosinophils # (A) 0.1 k/uL (0-0.7); Eosinophils % (A) 2 %; HCT 40.1 % (34.0-46.0); HGB 12.5 gm/dL (11.4-16.0); Lymphocytes # (A) 0.8 k/uL (1.0-4.8); Lymphocytes % (A) 9 %; MCH 29.9 pg (25.0-35.0); MCHC 31.3 g/dL (31.0-37.0); MCV 95.6 fL (80.0-100.0); Mean Platelet Volume 8.6; Monocytes # (A) 0.4 k/uL (0-1.0); Monocytes % (A) 4 %; Neutrophils # (A) 7.9 k/uL (1.3-7.7); Neutrophils % (A) 84 %; Platelet Count 237 k/uL (150-450); RDW 16.8 % (11.5-15.5); WBC 9.4 k/uL (3.8-10.6)
[2019-06-09 00:46] LABS: Calcium 9.7 mg/dL (8.4-10.2); Magnesium 1.9 mg/dL (1.6-2.3); Phosphorus 4.2 mg/dL (2.5-4.5); Potassium 3.9 mmol/L (3.5-5.1); Total Bilirubin 0.6 mg/dL (0.2-1.3); Total Protein 7.1 g/dL (6.3-8.2)
[2019-06-09 00:50] LABS: Appearance,Urine Clear (Clear); Bacteria,Urine Rare /hpf; Bilirubin,Urine Negative (Negative); Blood,Urine Small (Negative); Color,Urine Light Yellow; Glucose,Urine (UA) Negative (Negative); Hyaline Casts,Urine 1 /lpf (0-2); Ketones,Urine Negative (Negative); Leukocyte Esterase,Urine Moderate (Negative); Nitrite,Urine Negative (Negative); PH, Urine 6.5 (5.0-8.0); Protein,Urine 1+ (Negative); RBC,Urine 1 /hpf (0-5); Specific Gravity,Urine 1.009 (1.001-1.035); Squamous Epithelial Cell,Urine 2 /hpf (0-4); Urobilinogen,Urine <2.0 mg/dL (<2.0); WBC,Urine 2 /hpf (0-5)
[2019-06-09 01:24] LABS: Glucose,Whole Blood 186 mg/dL (75-99)
[2019-06-09 02:53] LABS: Glucose,Whole Blood 180 mg/dL (75-99)
[2019-06-09 07:03] LABS: Glucose,Whole Blood 162 mg/dL (75-99)
[2019-06-09] MEDS ORDERED: BUMETANIDE 1 MG TAB PO PRN (10:59)
[2019-06-09] MEDS ORDERED: DICLOFENAC SODIUM GEL 100 GM TUBE TOPICAL PRN (10:59)
[2019-06-09] MEDS ORDERED: ACETAMINOPHEN TAB 500 MG TAB PO PRN (10:59)
[2019-06-09 11:14] LABS: Glucose,Whole Blood 304 mg/dL (75-99)
[2019-06-09] MEDS ORDERED: LEVOFLOXACIN 500MG-D5W PMX 500 MG in DEXTROSE/WATER 1 100ML.BAG IVPB SCH (12:00)
[2019-06-09] MEDS: cycloSPORINE 0.05% OPHTH 0.4 ML DROPERETTE BOTH EYES SCH ×2 (12:14→20:05)
[2019-06-09] MEDS: CHOLECALCIFEROL 1,000 UNIT TAB PO SCH ×3 (12:14→22:45)
[2019-06-09] MEDS: REPAGLINIDE 1 MG TAB PO SCH ×2 (12:14→17:10)
[2019-06-09] MEDS: amLODIPine 5 MG TAB PO SCH (12:14)
[2019-06-09] MEDS: GABAPENTIN 100 MG CAP PO SCH ×2 (12:14→17:10)
[2019-06-09] MEDS: INSULIN ASPART (NovoLOG) 100 UNIT/ML VIAL SQ SCH ×3 (12:15→20:09)
--- NOTE | 2019-06-09 14:03 | HP ---
HISTORY AND PHYSICAL Mirian Briceno is a 74-year-old female who presented to the ER when she had some emesis. She had been doing fairly well when she had emesis and subsequently felt woozy. She was unresponsive per her and subsequently brought into the ER and found to have low blood sugar. They had been dealing with a bedbug problem at home. She has a known history of diabetes mellitus. She subsequently was admitted for further evaluation and management. PAST MEDICAL HISTORY: Positive for diabetes mellitus type 2 for which she is on insulin, history of angina and chest pain. History of fibromyalgia, rheumatoid arthritis, hypothyroidism, hyperlipidemia, hypertension, bursitis, chronic sacral wound, adenoidectomy, cholecystectomy, hysterectomy, tonsillectomy, 3 right knee surgeries, two left total knee replacement surgeries, D and C, laparoscopic Ignacio-en-Y gastric bypass, tubal ligation. SOCIAL HISTORY: Patient is a never smoker. Does not drink alcohol excessively. FAMILY HISTORY: Positive for coronary artery disease in her mother and father. REVIEW OF SYSTEMS: Noncontributory, other than for what is described in the history of present illness and past medical history. MEDICATIONS: Prior to admission were trazodone, Restasis, Norvasc, Silvadene cream, Prandin, Pravachol, pantoprazole, Lotemax, Synthroid, Levemir, NovoLog, [place], Neurontin, Flonase, Hectorol, Voltaren, Cymbalta, cinnamon, coli calciferol, Coreg, Bumex, Eliquis, and Tylenol. PHYSICAL EXAMINATION: She was lying in bed. She was relatively comfortable. She had some mild epigastric distress. Her blood pressure is 145/84, respiratory rate of 16, pulse 87, temperature 97.8, O2 saturation on room air is 100%. HEENT reveals pupils are equal. No jugular venous distention. Chest reveals decreased breath sounds. No clear wheeze. Cardiovascular system reveals an S1, S2. Abdomen is soft. There is no pedal edema. UA showed small blood, moderate leukocyte esterases. AST was 358, ALT 106, alkaline phosphatase 164. Glucose is 56. White count 9.4, hemoglobin of 12.5. IMPRESSION: 1. Metabolic encephalopathy. 2. Hypoglycemia, recurrent. 3. Possible bedbug infestation. 4. Acute gastritis. 5. Elevated liver enzymes, etiology which is unclear. 6. Urinary tract infection. 7. History of decubitus ulcer. At this point in time, would keep the patient in the hospital with the expectation that she would stay for at least 2 midnights, adjust her insulin. Start her on antibiotics, while checking her urine culture and sensitivity. Have GI and ID further evaluate the patient. Depending on how she does, we shall make further changes to her care. MMODL / IJN: [id number] /
--- NOTE | 2019-06-09 16:00 | CONS ---
CONSULTATION REASON FOR CONSULT: Chronic kidney disease. HISTORY OF PRESENT ILLNESS: Patient is a 74-year-old female who was admitted to the hospital with complaints of not feeling well and confusion. She was also hypoglycemic at home. Blood sugar here was 56 at one time. Patient's creatinine has been 1.14. She does have underlying CKD stage III, with previous creatinine at 1.1-0.9 mg/dL. The patient denies any other significant complaints. She was, however, found to have bedbugs and has been treated in the ER. PAST MEDICAL HISTORY: CKD stage 3, hypertension, type 2 diabetes, fibromyalgia, gastroesophageal reflux disease, osteoarthritis, rheumatoid arthritis, hyperlipidemia, hypertension, history of sacral wound, history of bursitis. PAST SURGICAL HISTORY: Adenoidectomy, cholecystectomy, hysterectomy, tonsillectomy, right knee surgery, left total knee arthroplasty, Ignacio-en-Y gastric bypass, tubal ligation. SOCIAL HISTORY: Negative for smoking, drug abuse or alcohol abuse. MEDICATIONS: Medications at home prior to admission included Bumex, vitamin D3, Flonase, pantoprazole, Cymbalta, Desyrel, Voltaren, Neurontin, Synthroid, Hectorol, Prandin, Eliquis, Pravachol, Tylenol, insulin, Coreg, amlodipine. ALLERGIES: Are multiple including ADHESIVE TAPE, INSECT VENOM, HONEY BEE VENOM, CAFFEINE, HYDROCODONE, PENICILLIN, TRAMADOL. REVIEW OF SYSTEMS: As per HPI. Other systems negative. PHYSICAL EXAMINATION: On examination, patient is comfortable, awake, alert, oriented x3, not in any acute distress. Blood pressure is 145/84, heart rate 71 per minute, she is afebrile. Examination of the heart S1, S2. Examination of the lungs, bilateral breath sounds are heard. Abdomen is soft, nontender. Examination of lower extremities shows no significant edema. EMERGENCY OPERATOR exam grossly intact. LAB: Show sodium 137, potassium 3.9, chloride 102, BUN 39, creatinine 1.14, hemoglobin 12.5 g/dL. ASSESSMENT: 1. Chronic kidney disease stage 3 with an element of acute kidney injury, possibly prerenal, currently continue without IV fluids. Renal function is not far from baseline. The patient does have mild lower extremity edema. No nephrotoxic agents on board. Okay to resume all home medications. 2. Hypoglycemia, currently improved. Medications will be adjusted per primary service. 3. History of chronic lower extremity edema, maintained on Bumex at home. 4. Hypertension, currently controlled. 5. Bed bug infestation status post treatment in ER. PLAN: Continue home medications. Continue off IV fluids. Avoid nephrotoxic medications. Repeat labs in a.m. KM / MARCO: [id number] /
[2019-06-09 16:52] LABS: Glucose,Whole Blood 221 mg/dL (75-99)
[2019-06-09] MEDS ORDERED: ALPRAZolam 0.25 MG TAB PO PRN (17:07)
[2019-06-09] MEDS: CARVEDILOL 6.25 MG TAB PO SCH (17:10)
[2019-06-09] MEDS: APIXABAN 5 MG TAB PO SCH (17:10)
[2019-06-09] MEDS: FLUTICASONE 50MCG/SPRAY NASAL 16GM EA NOSTRIL SCH (20:00)
[2019-06-09] MEDS: traZODone HCL 50 MG TAB PO SCH (20:00)
[2019-06-09] MEDS: DULoxetine HCL 60 MG CAPSULE.DR PO SCH (20:01)
[2019-06-09 20:05] LABS: Glucose,Whole Blood 286 mg/dL (75-99)
[2019-06-09] MEDS ORDERED: INSULIN DETEMIR SQ SCH (21:00)
[2019-06-09] MEDS: HYDROcodone/APAP 7.5-325MG 1 EACH TAB PO PRN (22:51)
[2019-06-10 01:55] LABS: Glucose,Whole Blood 169 mg/dL (75-99)
[2019-06-10] MEDS: INSULIN ASPART (NovoLOG) 100 UNIT/ML VIAL SQ SCH ×5 (02:07→20:13)
[2019-06-10 06:58] LABS: Glucose,Whole Blood 123 mg/dL (75-99)
[2019-06-10] MEDS: CHOLECALCIFEROL 1,000 UNIT TAB PO SCH ×3 (08:47→20:13)
[2019-06-10] MEDS: PANTOPRAZOLE 40 MG TABLET PO SCH (08:47)
[2019-06-10] MEDS: APIXABAN 5 MG TAB PO SCH ×2 (08:47→18:51)
[2019-06-10] MEDS: amLODIPine 5 MG TAB PO SCH (08:47)
[2019-06-10] MEDS: cycloSPORINE 0.05% OPHTH 0.4 ML DROPERETTE BOTH EYES SCH ×2 (08:48→20:11)
[2019-06-10] MEDS: LEVOTHYROXINE 137 MCG TAB PO SCH (08:48)
[2019-06-10] MEDS: CARVEDILOL 6.25 MG TAB PO SCH ×2 (08:48→18:51)
[2019-06-10] MEDS: REPAGLINIDE 1 MG TAB PO SCH ×3 (08:48→18:51)
[2019-06-10] MEDS: FLUTICASONE 50MCG/SPRAY NASAL 16GM EA NOSTRIL SCH ×2 (08:49→20:12)
[2019-06-10] MEDS: prednisoLONE ACETATE 1% OPHTH DROPS 5 ML BTL BOTH EYES SCH (08:49)
[2019-06-10] MEDS: LEVOFLOXACIN 250 MG TAB PO SCH (08:49)
[2019-06-10] MEDS: HYDROcodone/APAP 7.5-325MG 1 EACH TAB PO PRN (08:54)
[2019-06-10 11:08] LABS: Glucose,Whole Blood 230 mg/dL (75-99)
[2019-06-10] MEDS: GABAPENTIN 100 MG CAP PO SCH ×2 (11:57→18:51)
--- NOTE | 2019-06-10 12:47 | PN ---
PROGRESS NOTE She was seen on 06/10/2019. She has right hip pain at this time. She feels somewhat jittery and anxious. PHYSICAL EXAMINATION: Vitals are stable. She is afebrile. Her chest is clear. Cardiovascular system reveals an S1, S2. Abdomen is soft. There is no pedal edema. IMPRESSION: 1. Recurrent hypoglycemia for which we will be adjusting her current medications. 2. Elevated liver enzymes. 3. Urinary tract infection. 4. Metabolic encephalopathy. At this point in time continue her on her current medications and antibiotics. Await final recommendations by ID. Will send off a urine C and S or ensure there it has already been sent. Depending on how she does we should make further changes to her care. MMODL / IJN: [id number] /
--- NOTE | 2019-06-10 13:56 | P.CONS ---
History of Present Illness - Reason for Consult Consult date: 06/10/19 urinary tract infection and wound Requesting physician: Kishore Momin - Chief Complaint low blood sugar and mental status changes - History of Present Illness Patient is a 74-year-old female who was brought into the ER at [facility] 06/08/2019 for evaluation of her mental status changes and low blood sugar apparently the patient was noticed to be unresponsive and did have a low blood sugar she was also noticed to have some bedbugs and the patient was cleaned in the ER and brought into the room and the patient did have low blood sugar of 56 per who provided most of the history mentioning that she did have a weakness off and on for the last week and so however there is no clear history of any fever or chills oral intake has been about the same no history of nausea vomiting abdominal pain or any diarrhea she did have occasional burning of the urine no significant frequency suprapubic or flank pain some nausea but no vomiting further evaluation and D she was patient did have mildly elevated liver enzymes white count was normal, the patient did have positive UA with moderate leukocyte esterase and rare bacteria, the patient did have a mild atelectasis left lung on the basis of the chest x-ray the patient to be started on Levaquin and admitted to hospital for disease was consulted for further recommendation regarding urinary tract infection apparently the baby did have previous history of a wound to the segmental which is currently healed and patient has no symptoms referable to that, RN mention no bedbugs was noticed on the patient when she was brought to this room Review of Systems Positive point has been mentioned in the HPI rest of the systems are negative Past Medical History Past Medical History: Chest Pain / Angina, Diabetes Mellitus, Fibromyalgia, GERD/Reflux, Hyperlipidemia, Hypertension, Osteoarthritis (OA), Renal Disease, Rheumatoid Arthritis (RA), Thyroid Disorder Additional Past Medical History / Comment(s): BURSITIS, falls, chronic sacral wound, Vertigo, anemia, marina celluitis History of Any Multi-Drug Resistant Organisms: None Reported Past Surgical History: Adenoidectomy, Cholecystectomy, Hysterectomy, Orthopedic Surgery, Tonsillectomy Additional Past Surgical History / Comment(s): 3 RIGHT KNEE SURGERIES AND 2 LEFT TOTAL KNEE REPLACEMENTS SURGERIES. D&C'S. Lap Ignacio-en-Y gastric bypass [place] [address] Zambrano , total hysterectomy for fibroid tumor, tubal ligation Past Anesthesia/Blood Transfusion Reactions: Motion Sickness Additional Past Anesthesia/Blood Transfusion Reaction / Comm: Pt received blood in 2012 without reaction. Past Psychological History: No Psychological Hx Reported Additional Psychological History / Comment(s): PT'S 44 YEAR OLD SON JANUARY 2014 AND THEY HAVE GAURDIANSHIP OF HIS DAUGHTER. Smoking Status: Never smoker Past Alcohol Use History: None Reported Past Drug Use History: None Reported - Past Family History Mother Family Medical History: Coronary Artery Disease (CAD) Additional Family Medical History / Comment(s): age 90 of heart failure. Had hx of Parkinsons and Narcolepsy Father Family Medical History: Coronary Artery Disease (CAD) Additional Family Medical History / Comment(s): age 73 of massive heart attack Medications and Allergies Home Medications Medication Instructions Recorded Confirmed Type Bumetanide [BUMEX] 1 mg PO BID PRN 10/02/14 06/09/19 History Cholecalciferol [Vitamin D3 (25 2,000 unit PO TID 10/02/14 06/09/19 History Mcg = 1000 Iu)] Fluticasone Propionate [Flonase 2 spray EA NOSTRIL BID 10/02/14 06/09/19 History Allergy Relief] Pantoprazole Sodium 40 mg PO AC-BRKFST 10/02/14 06/09/19 History cycloSPORINE [Restasis] 1 drop BOTH EYES BID 10/02/14 06/09/19 History DULoxetine HCL [Cymbalta] 60 mg PO HS 04/16/15 06/09/19 History traZODone HCL [Desyrel] 50 mg PO HS 06/06/15 06/09/19 History Diclofenac Sodium [Voltaren Gel] 2 gram TOPICAL DAILY PRN 12/16/16 06/09/19 History Gabapentin [Neurontin] 100 mg PO AC-BID@1200,1800 12/16/16 06/09/19 History Levothyroxine Sodium [Synthroid] 137 mcg PO AC-BRKFST 12/16/16 06/09/19 History HYDROcodone/APAP 7.5-325MG [[place] 1 tab PO TID PRN 04/13/17 06/09/19 History 7.5-325] Loteprednol Etabonate [Lotemax] 1 drop BOTH EYES DAILY 04/13/17 06/09/19 History Doxercalciferol [Hectorol] 0.5 mcg PO MOTUWETHFR@2100 07/04/17 06/09/19 History Repaglinide [Prandin] 2 mg PO AC-TID 07/04/17 06/09/19 History SILVER sulfADIAZINE Cream 1 applic TOPICAL DAILY PRN 07/04/17 06/09/19 History [Silvadene 1% Cream] Apixaban [Eliquis] 5 mg PO BID-W/MEALS 09/27/18 06/09/19 History Optive Eye Drop 1 drop BOTH EYES DAILY 09/27/18 06/09/19 History Pravastatin Sodium [Pravachol] 20 mg PO AC-SUPPER 09/27/18 06/09/19 History Acetaminophen [Tylenol] 500 mg PO Q4H PRN 04/03/19 06/09/19 History Insulin Aspart [NovoLOG Flexpen] See Protocol SQ AC-TID 04/03/19 06/09/19 History Insulin Detemir [Levemir Flextouch] See Protocol SQ HS 04/03/19 06/09/19 History Carvedilol [Coreg] 6.25 mg PO BID-W/MEALS 05/01/19 06/09/19 History Cinnamon 250 Mg 250 mg PO AC-BID@0700,1200 05/01/19 06/09/19 History Milk Thistle 200 Mg 200 mg PO W/LUNCH 05/01/19 06/09/19 History amLODIPine [Norvasc] 5 mg PO DAILY 05/01/19 06/09/19 History Allergies Allergy/AdvReac Type Severity Reaction Status Date / Time adhesive tape Allergy Rash/Hives Verified 06/09/19 10:17 insect venom Allergy Swelling Verified 06/09/19 10:17 triamcinolone Allergy Unknown Verified 06/09/19 10:17 venom-honey bee Allergy Swelling Verified 06/09/19 10:17 caffeine AdvReac Nausea & Verified 06/09/19 10:17 Vomiting & Diarrhea hydrocodone bitartrate AdvReac Itching Verified 06/09/19 10:17 [From Lorcet (hydrocodone)] Penicillins AdvReac Nausea & Verified 06/09/19 10:17 Vomiting & Diarrhea tramadol HCl [From Ultram] AdvReac Itching Verified 06/09/19 10:17 Physical Exam Vitals: Vital Signs Temp Pulse Resp BP BP Pulse Ox 06/10/19 06:57 98.1 F 64 16 150/74 96 06/10/19 03:40 16 06/10/19 01:42 98.4 F 71 17 144/73 06/10/19 00:35 72 16 06/09/19 20:30 16 06/09/19 19:57 158/77 06/09/19 19:55 98.3 F 72 16 175/79 99 06/09/19 15:00 97.4 F L 66 16 132/64 100 Intake and Output 06/09/19 06/10/19 06/10/19 22:59 06:59 14:59 Intake Total 236 Balance 236 Intake: Oral 236 Other: Voiding Method Bedside Commode Bedside Commode # Voids 1 3 GENERAL DESCRIPTION: An elderly female up in bed, no distress. No tachypnea or accessory muscle of respiration use. HEENT: Shows Pallor , no scleral icterus. Oral mucous membrane is dry. No pharyngeal erythema or thrush NECK: Trachea central, no thyromegaly. LUNGS: Unlabored breathing. Clear to auscultation anteriorly. No wheeze or crackle. HEART: S1, S2, regular rate and rhythm. No loud murmur ABDOMEN: Soft, no tenderness , guarding or rigidity, no organomegaly EXTREMITIES: No edema of feet. SKIN: No rash, no masses palpable. NEUROLOGICAL: The patient is awake, alert, oriented x3, mood and affect normal. Results CBC & Chem 7: 06/09/19 00:00 06/09/19 00:00 Labs: Abnormal Lab Results - Last 24 Hours (Table) 06/09/19 06/09/19 06/10/19 Range/Units 16:51 20:04 01:54 POC Glucose (mg/dL) 221 H 286 H 169 H (75-99) mg/dL 06/10/19 06/10/19 Range/Units 06:57 11:07 POC Glucose (mg/dL) 123 H 230 H (75-99) mg/dL Assessment and Plan Assessment: 1-patient admitted to hospital with mental status changes she was noticed to have a low blood sugar did have a mildly positive UA with mild burning of urine the patient also elevated liver enzymes however no right upper quadrant abdominal pain and no tenderness was noticed (1) Elevated LFTs Current Visit: Yes Status: Acute Code(s): R94.5 - ABNORMAL RESULTS OF LIVER FUNCTION STUDIES SNOMED Code(s): 946860658 (2) UTI (lower urinary tract infection) Current Visit: No Status: Acute Code(s): N39.0 - URINARY TRACT INFECTION, SITE NOT SPECIFIED SNOMED Code(s): 3278180 Plan: 1-we'll obtain ultrasound of the liver and gallbladder area 2-Levaquin 250 by mouth daily to continue on waiting for the culture finalized 3-check hepatitis panel We will follow on clinical condition and cultures to further adjust medication if needed Thank you for this consultation will follow this patient with you Time with Patient: Greater than 30
--- NOTE | 2019-06-10 16:02 | XR ---
EXAMINATION TYPE: XR Hip RT and AP Pelvis DATE OF EXAM: 06/10/2019 COMPARISON: None HISTORY: Right hip pain TECHNIQUE: AP pelvis is performed. 2 views of the right hip are obtained. FINDINGS: Femoral head articulates with the acetabulum. No acute fracture or dislocation is evident. Large fecal bolus is present at the rectum. Correlate for fecal impaction. Symphysis pubis and sacroi liac joints are intact. IMPRESSION: 1. No acute osseous abnormality right hip. 2. Clinical consideration for fecal impaction is recommended.
[2019-06-10 16:38] LABS: Glucose,Whole Blood 210 mg/dL (75-99)
--- NOTE | 2019-06-10 19:04 | US ---
EXAMINATION TYPE: US abdomen complete DATE OF EXAM: 06/10/2019 COMPARISON: NONE CLINICAL HISTORY: elevated LFT and UTI. Nausea, elevated liver enzymes, UTI, history of gastric bypas s surgery and cholecystectomy EXAM MEASUREMENTS: Liver Length: 15.9 cm Gallbladder Wall: Surgically absent CBD: 0.9 cm Spleen: 9.2 cm Right Kidney: 9.4 x 4.4 x 5.2 cm Left Kidney: 10.5 x 4.8 x 4.2 cm Technical limitations due to patient's body habitus, large amount of overlying bowel content, and p atient uncooperative - unable to tolerate any pressure Pancreas: duct = 0.3cm Liver: appears wnl as visualized, only seen intercostally Gallbladder: Surgically absent Evidence for sonographic Vivas's sign: no CBD: appears wnl as visualized Spleen: appears wnl Right Kidney: no evidence of hydronephrosis Left Kidney: no evidence of hydronephrosis Upper IVC: wnl Abd Aorta: visualized portions appear wnl, bifurcation obscured IMPRESSION: 1. Normal abdomen ultrasound
[2019-06-10 20:07] LABS: Glucose,Whole Blood 279 mg/dL (75-99)
[2019-06-10] MEDS: DULoxetine HCL 60 MG CAPSULE.DR PO SCH (20:11)
[2019-06-10] MEDS: traZODone HCL 50 MG TAB PO SCH (20:11)
[2019-06-11 01:16] LABS: Glucose,Whole Blood 156 mg/dL (75-99)
[2019-06-11] MEDS: INSULIN ASPART (NovoLOG) 100 UNIT/ML VIAL SQ SCH ×3 (01:18→12:03)
[2019-06-11 06:56] LABS: Glucose,Whole Blood 153 mg/dL (75-99)
[2019-06-11 08:15] VITALS: RESP 16
[2019-06-11] MEDS: amLODIPine 5 MG TAB PO SCH (08:47)
[2019-06-11] MEDS: LEVOFLOXACIN 250 MG TAB PO SCH (08:48)
[2019-06-11] MEDS: PANTOPRAZOLE 40 MG TABLET PO SCH (08:48)
[2019-06-11] MEDS: CARVEDILOL 6.25 MG TAB PO SCH (08:48)
[2019-06-11] MEDS: CHOLECALCIFEROL 1,000 UNIT TAB PO SCH (08:48)
[2019-06-11] MEDS: APIXABAN 5 MG TAB PO SCH (08:48)
[2019-06-11] MEDS: LEVOTHYROXINE 137 MCG TAB PO SCH (08:49)
[2019-06-11] MEDS: cycloSPORINE 0.05% OPHTH 0.4 ML DROPERETTE BOTH EYES SCH (08:56)
[2019-06-11] MEDS: prednisoLONE ACETATE 1% OPHTH DROPS 5 ML BTL BOTH EYES SCH (08:56)
[2019-06-11] MEDS: FLUTICASONE 50MCG/SPRAY NASAL 16GM EA NOSTRIL SCH (08:56)
[2019-06-11] MEDS: REPAGLINIDE 1 MG TAB PO SCH ×2 (09:25→12:07)
[2019-06-11 09:34] LABS: Albumin 3.6 g/dL (3.5-5.0); Calcium 9.9 mg/dL (8.4-10.2); Total Bilirubin 0.5 mg/dL (0.2-1.3); Total Protein 6.5 g/dL (6.3-8.2)
[2019-06-11 11:54] LABS: Glucose,Whole Blood 235 mg/dL (75-99)
[2019-06-11] MEDS: GABAPENTIN 100 MG CAP PO SCH (12:03)
[2019-06-11 14:52] VITALS: BP 165/87; PULSE 68; TEMP 97.9
--- NOTE | 2019-06-11 15:26 | P.CNOR ---
History of Present Illness - [facility] Consult date: 06/11/19 Consult reason: joint pain History of present illness: Patient is a pleasant 74 year old female seen at bedside today in consultation for right hip pain. She states she has had intermittent right hip pain for past few months. It is not daily. She has minimal pain today. She describes pain at the outside of her right hip. She denies groin pain, numbness, tingling, or radicular symptoms. She has no other complaints Past Medical History Past Medical History: Chest Pain / Angina, Diabetes Mellitus, Fibromyalgia, GERD/Reflux, Hyperlipidemia, Hypertension, Osteoarthritis (OA), Renal Disease, Rheumatoid Arthritis (RA), Thyroid Disorder Additional Past Medical History / Comment(s): BURSITIS, falls, chronic sacral wound, Vertigo, anemia, marina celluitis History of Any Multi-Drug Resistant Organisms: None Reported Past Surgical History: Adenoidectomy, Cholecystectomy, Hysterectomy, Orthopedic Surgery, Tonsillectomy Additional Past Surgical History / Comment(s): 3 RIGHT KNEE SURGERIES AND 2 LEFT TOTAL KNEE REPLACEMENTS SURGERIES. D&C'S. Lap Ignacio-en-Y gastric [place] [address] Zambrano , total hysterectomy for fibroid tumor, tubal ligation Past Anesthesia/Blood Transfusion Reactions: Motion Sickness Additional Past Anesthesia/Blood Transfusion Reaction / Comm: Pt received blood in 2012 without reaction. Past Psychological History: No Psychological Hx Reported Additional Psychological History / Comment(s): PT'S 44 YEAR OLD SON JANUARY 2014 AND THEY HAVE GAURDIANSHIP OF HIS DAUGHTER. Smoking Status: Never smoker Past Alcohol Use History: None Reported Past Drug Use History: None Reported - Past Family History Mother Family Medical History: Coronary Artery Disease (CAD) Additional Family Medical History / Comment(s): age 90 of heart failure. Had hx of Parkinsons and Narcolepsy Father Family Medical History: Coronary Artery Disease (CAD) Additional Family Medical History / Comment(s): age 73 of massive heart attack Medications and Allergies Home Medications Medication Instructions Recorded Confirmed Type Bumetanide [BUMEX] 1 mg PO BID PRN 10/02/14 06/09/19 History Cholecalciferol [Vitamin D3 (25 2,000 unit PO TID 10/02/14 06/09/19 History Mcg = 1000 Iu)] Fluticasone Propionate [Flonase 2 spray EA NOSTRIL BID 10/02/14 06/09/19 History Allergy Relief] Pantoprazole Sodium 40 mg PO AC-BRKFST 10/02/14 06/09/19 History cycloSPORINE [Restasis] 1 drop BOTH EYES BID 10/02/14 06/09/19 History DULoxetine HCL [Cymbalta] 60 mg PO HS 04/16/15 06/09/19 History traZODone HCL [Desyrel] 50 mg PO HS 06/06/15 06/09/19 History Diclofenac Sodium [Voltaren Gel] 2 gram TOPICAL DAILY PRN 12/16/16 06/09/19 History Gabapentin [Neurontin] 100 mg PO AC-BID@1200,1800 12/16/16 06/09/19 History Levothyroxine Sodium [Synthroid] 137 mcg PO AC-BRKFST 12/16/16 06/09/19 History HYDROcodone/APAP 7.5-325MG [[place] 1 tab PO TID PRN 04/13/17 06/09/19 History 7.5-325] Loteprednol Etabonate [Lotemax] 1 drop BOTH EYES DAILY 04/13/17 06/09/19 History Doxercalciferol [Hectorol] 0.5 mcg PO MOTUWETHFR@2100 07/04/17 06/09/19 History Repaglinide [Prandin] 2 mg PO AC-TID 07/04/17 06/09/19 History SILVER sulfADIAZINE Cream 1 applic TOPICAL DAILY PRN 07/04/17 06/09/19 History [Silvadene 1% Cream] Apixaban [Eliquis] 5 mg PO BID-W/MEALS 09/27/18 06/09/19 History Optive Eye Drop 1 drop BOTH EYES DAILY 09/27/18 06/09/19 History Pravastatin Sodium [Pravachol] 20 mg PO AC-SUPPER 09/27/18 06/09/19 History Acetaminophen [Tylenol] 500 mg PO Q4H PRN 04/03/19 06/09/19 History Insulin Aspart [NovoLOG Flexpen] See Protocol SQ AC-TID 04/03/19 06/09/19 History Insulin Detemir [Levemir Flextouch] See Protocol SQ HS 04/03/19 06/09/19 History Carvedilol [Coreg] 6.25 mg PO BID-W/MEALS 05/01/19 06/09/19 History Cinnamon 250 Mg 250 mg PO AC-BID@0700,1200 05/01/19 06/09/19 History Milk Thistle 200 Mg 200 mg PO W/LUNCH 05/01/19 06/09/19 History amLODIPine [Norvasc] 5 mg PO DAILY 05/01/19 06/09/19 History Allergies Allergy/AdvReac Type Severity Reaction Status Date / Time adhesive tape Allergy Rash/Hives Verified 06/09/19 10:17 insect venom Allergy Swelling Verified 06/09/19 10:17 triamcinolone Allergy Unknown Verified 06/09/19 10:17 venom-honey bee Allergy Swelling Verified 06/09/19 10:17 caffeine AdvReac Nausea & Verified 06/09/19 10:17 Vomiting & Diarrhea hydrocodone bitartrate AdvReac Itching Verified 06/09/19 10:17 [From Lorcet (hydrocodone)] Penicillins AdvReac Nausea & Verified 06/09/19 10:17 Vomiting & Diarrhea tramadol HCl [From Ultram] AdvReac Itching Verified 06/09/19 10:17 Physical Examination Inspection of the right hip is benign. There are no wounds or erythema. There is tenderness at the greater trochanteric bursa. She has painless passive range of motion of the right hip with flexion to 90, IR 30, ER 40, abduction and adduction. Motor and sensation is intact throughout the lower extremity. Calf is SNT. 2+ DP pulse and less than 2 sec cap refill present. Results Xray of the pelvis and right hip show no acute bony injury. She has moderate DJD of the hip joint. No fractures or lesions - Labs Labs: Abnormal Lab Results - Last 24 Hours (Table) 06/10/19 06/10/19 06/11/19 Range/Units 16:38 20:06 01:13 BUN (7-17) mg/dL Glucose (74-99) mg/dL POC Glucose (mg/dL) 210 H 279 H 156 H (75-99) mg/dL AST (14-36) U/L ALT (4-34) U/L 06/11/19 06/11/19 06/11/19 Range/Units 06:55 09:00 11:53 BUN 20 H (7-17) mg/dL Glucose 234 H (74-99) mg/dL POC Glucose (mg/dL) 153 H 235 H (75-99) mg/dL AST 73 H (14-36) U/L ALT 87 H (4-34) U/L Microbiology - Last 24 Hours (Table) 06/10/19 17:15 Urine Culture - Preliminary Urine,Clean Catch H & H 06/09/19 Range/Units 00:00 Hgb 12.5 (11.4-16.0) gm/dL Hct 40.1 (34.0-46.0) % Result Diagrams: 06/09/19 00:00 06/11/19 09:00 - Diagnostic results Hip x-ray: report reviewed, image reviewed Assessment and Plan (1) Trochanteric bursitis of right hip Narrative/Plan: Recommend applying ice to the outside right hip 15-20 mins a few times per day prn. Also advised to avoid lying on that side. She cannot take NSAIDs due to being on Eloquis. She may follow up as an outpatient for possible injection, further evaluation and management. Current Visit: Yes Status: Acute Priority: Medium Code(s): M70.61 - TROCHANTERIC BURSITIS, RIGHT HIP SNOMED Code(s): 6161822 Time with Patient: Less than 30
--- NOTE | 2019-06-11 15:35 | P.DS ---
Providers Date of admission: 06/09/19 00:23 Expected date of discharge: 06/11/19 Attending physician: Taina Vergara Consults: 06/09/19 11:21 Consult Physician Routine Consulting Provider: Ajay Mead Consult Reason/Comments: bed bug, uti, wound Do you want consulting provider notified?: Yes 06/09/19 11:22 Consult Physician Routine Consulting Provider: Dami Treviño Consult Reason/Comments: elevated lft, gastritis Do you want consulting provider notified?: Yes 06/10/19 09:11 Consult Physician Routine Consulting Provider: Howard Vivas Consult Reason/Comments: hip pain Do you want consulting provider notified?: Yes Primary care physician: Reji May [facility] Course: Discharge diagnosis 1. UTI: Urine culture is pending. Patient will be discharged on Levaquin 250 daily for 5 more days. Follow up on urine culture results and office 2. Diabetes mellitus type 2: Patient has had episodes of hypoglycemia on admission. Initially her Levemir was held. She had been having some poor oral intake. Possibly related to her infection. Appetite is starting to improve. Blood sugars are now in the 200s. A1c is 7.2. Patient is reporting that she does not take the Prandin at home. This will be discontinued. She'll be discharged on Levemir 10 units at bedtime. And her sliding scale with NovoLog has been adjusted a new sliding scale has been given to patient. Patient will start receiving 1 unit of insulin for a blood sugar of 150. And if sugars greater than 300 she can receive 6 units. Patient to continue monitoring blood sugars at home will have her follow-up in the office for review. 3. Metabolic encephalopathy present on admission secondary to UTI now improved. Computed tomography scan of the brain was negative 4. Elevated LFTs possibly related to an underlying fatty liver. Patient has been seen by GI service. Abdominal ultrasound was essentially unremarkable. Hepatitis panel is pending. Patient follow-up with those results in the GI office in 2 weeks. LFTs are trending down. Per GI service patient can continue on her statin and Tylenol. 5. Acute kidney injury: Now resolved. Patient seen by nephrology. 6. Essential hypertension: Blood pressures have been elevated. Patient is currently on Norvasc and Coreg. Patient's Norvasc will be increased to 5 mg twice a day. We'll hold off on SHARMILA inhibitor at this time due to her recent acute kidney injury. 7. He had bug infestation status post treatment in ER 8. Chronic lower extremity edema maintained on Bumex at home as needed 9. History of paroxysmal atrial fibrillation anticoagulated with Eliquis 10. Right hip bursitis: X-ray of hip negative. Hospital course Patient presented to the emergency room with confusion and emesis. She was found to have a low blood sugar. She also was found have a bedbug problem at home. She has a history of diabetes. Her Levemir was initially held. A1c was 7.2. Blood sugars initially were in the 50s. And are now in the 200s. For discharge patient will be discharged on Levemir 10 units at bedtime which she was on at home. And her NovoLog sliding scale has been adjusted. Insulin will not be started until blood sugar is 150 and at that time 1 unit will be given and then continue following scale. Patient reports not being on Prandin at home. Patient will follow-up in the office for further adjustments. He did have elevated LFTs present on admission. Abdominal ultrasound was negative. Patient had hepatitis panel completed which is pending and she'll follow-up with GI service for those results and further workup on the elevated LFTs. She also is having some right hip pain and was seen by orthopedics and they felt that likely was up her sinus and recommended applying ice to the hip. They will follow up with her in 1 week in the office. Patient follow-up with Dr. Bartholomew tomorrow Follow-up with orthopedics in 1-2 weeks Follow-up with GI service in 2 weeks I performed an examination of the patient and discussed their management with the physician Rn Research. I have reviewed the Physician Rn Research's notes and agree with the documented findings and plan of care Patient Condition at Discharge: Stable Plan - Discharge Summary Discharge Rx Participant: No New Discharge Prescriptions: New Levofloxacin [Levaquin] 250 mg PO DAILY #5 tab Lisinopril [Zestril] 5 mg PO DAILY #30 tablet Continue Bumetanide [BUMEX] 1 mg PO BID PRN PRN Reason: Edema cycloSPORINE [Restasis] 1 drop BOTH EYES BID Cholecalciferol [Vitamin D3 (25 Mcg = 1000 Iu)] 2,000 unit PO TID Fluticasone Propionate [Flonase Allergy Relief] 2 spray EA NOSTRIL BID Pantoprazole Sodium 40 mg PO AC-BRKFST DULoxetine HCL [Cymbalta] 60 mg PO HS traZODone HCL [Desyrel] 50 mg PO HS Gabapentin [Neurontin] 100 mg PO AC-BID@1200,1800 Levothyroxine Sodium [Synthroid] 137 mcg PO AC-BRKFST Diclofenac Sodium [Voltaren Gel] 2 gram TOPICAL DAILY PRN PRN Reason: Pain HYDROcodone/APAP 7.5-325MG [Forest 7.5-325] 1 tab PO TID PRN PRN Reason: Pain Loteprednol Etabonate [Lotemax] 1 drop BOTH EYES DAILY SILVER sulfADIAZINE Cream [Silvadene 1% Cream] 1 applic TOPICAL DAILY PRN PRN Reason: Skin Irritation Doxercalciferol [Hectorol] 0.5 mcg PO MOTUWETHFR@2100 Optive Eye Drop 1 drop BOTH EYES DAILY Apixaban [Eliquis] 5 mg PO BID-W/MEALS Pravastatin Sodium [Pravachol] 20 mg PO AC-SUPPER Acetaminophen [Tylenol] 500 mg PO Q4H PRN PRN Reason: Pain Cinnamon 250 Mg 250 mg PO AC-BID@0700,1200 Milk Thistle 200 Mg 200 mg PO W/LUNCH amLODIPine [Norvasc] 5 mg PO DAILY Carvedilol [Coreg] 6.25 mg PO BID-W/MEALS Insulin Aspart [NovoLOG Flexpen] See Protocol SQ AC-TID #0 Changed Insulin Detemir [Levemir Flextouch] 10 units SQ HS #0 Discontinued Repaglinide [Prandin] 2 mg PO AC-TID Discharge Medication List Bumetanide [BUMEX] 1 mg PO BID PRN 10/02/14 [History] Cholecalciferol [Vitamin D3 (25 Mcg = 1000 Iu)] 2,000 unit PO TID 10/02/14 [History] Fluticasone Propionate [Flonase Allergy Relief] 2 spray EA NOSTRIL BID 10/02/14 [History] Pantoprazole Sodium 40 mg PO AC-BRKFST 10/02/14 [History] cycloSPORINE [Restasis] 1 drop BOTH EYES BID 10/02/14 [History] DULoxetine HCL [Cymbalta] 60 mg PO HS 04/16/15 [History] traZODone HCL [Desyrel] 50 mg PO HS 06/06/15 [History] Diclofenac Sodium [Voltaren Gel] 2 gram TOPICAL DAILY PRN 12/16/16 [History] Gabapentin [Neurontin] 100 mg PO AC-BID@1200,1800 12/16/16 [History] Levothyroxine Sodium [Synthroid] 137 mcg PO AC-BRKFST 12/16/16 [History] HYDROcodone/APAP 7.5-325MG [Forest 7.5-325] 1 tab PO TID PRN 04/13/17 [History] Loteprednol Etabonate [Lotemax] 1 drop BOTH EYES DAILY 04/13/17 [History] Doxercalciferol [Hectorol] 0.5 mcg PO MOTUWETHFR@2100 07/04/17 [History] SILVER sulfADIAZINE Cream [Silvadene 1% Cream] 1 applic TOPICAL DAILY PRN 07/04/17 [History] Apixaban [Eliquis] 5 mg PO BID-W/MEALS 09/27/18 [History] Optive Eye Drop 1 drop BOTH EYES DAILY 09/27/18 [History] Pravastatin Sodium [Pravachol] 20 mg PO AC-SUPPER 09/27/18 [History] Acetaminophen [Tylenol] 500 mg PO Q4H PRN 04/03/19 [History] Carvedilol [Coreg] 6.25 mg PO BID-W/MEALS 05/01/19 [History] Cinnamon 250 Mg 250 mg PO AC-BID@0700,1200 05/01/19 [History] Milk Thistle 200 Mg 200 mg PO W/LUNCH 05/01/19 [History] amLODIPine [Norvasc] 5 mg PO DAILY 05/01/19 [History] Insulin Aspart [NovoLOG Flexpen] See Protocol SQ AC-TID #0 06/11/19 [Rx] Insulin Detemir [Levemir Flextouch] 10 units SQ HS #0 06/11/19 [Rx] Levofloxacin [Levaquin] 250 mg PO DAILY #5 tab 06/11/19 [Rx] Lisinopril [Zestril] 5 mg PO DAILY #30 tablet 06/11/19 [Rx] Follow up Appointment(s)/Referral(s): None,Stated [REFERRING] - 1-2 days Katrin Doshi NPC [Nurse Practitioner] - 2 Weeks Howard Vivas MD [STAFF PHYSICIAN] - 2 Weeks Reji Bartholomew MD [Primary Care Provider] - 1-2 Days Activity/Diet/Wound Care/Special Instructions: Diet Diabetic Activity: as tolerated Discharge Disposition: HOME SELF-CARE
--- NOTE | 2019-06-11 19:09 | PN ---
PROGRESS NOTE DATE OF SERVICE: 06/11/2019. REASON FOR FOLLOWUP: Urinary tract infection. INTERVAL HISTORY: The patient is currently afebrile. The patient has been breathing comfortably. The patient denies having any chest pain, shortness of breath or cough. No nausea, vomiting, abdominal pain, no diarrhea. PHYSICAL EXAMINATION: Blood pressure is 165/87 with a pulse of 68. Temperature 97.9. She is 99% on room air. General description is an elderly female, lying in bed in no distress. Respiratory system: Unlabored breathing, clear to auscultation anteriorly. Heart S1, S2. Regular rate and rhythm. ABDOMEN: Soft. No tenderness. LABS: BUN of 27, creatinine 0.79. Urine culture is currently pending. DIAGNOSTIC IMPRESSION AND PLAN: Patient admitted to the hospital with mental status changes, confusion, which is likely multifactorial in this patient who did have hypoglycemia, positive urinalysis and concern for urinary tract infection. Patient is currently covered with Rocephin, however the patient insisting on going home. Antibiotic will be switched to oral Ceftin 500 mg twice a day for about a week and close outpatient followup. Plan of care discussed with the admitting physician. MMODL / IJN: [id number] /
--- NOTE | 2019-06-11 20:24 | CONS ---
CONSULTATION DATE OF DICTATION: June 11, 2019. REQUESTING PHYSICIAN: Dr. Vergara. REASON FOR CONSULTATION: Elevated LFTs. HISTORY OF PRESENT ILLNESS: The patient is a 74-year-old pleasant white female came to the emergency room for altered mental status. The states that he found the somewhat obtunded and foam in her mouth, became very concerned and brought her into the emergency room and she was noted to have hyperglycemia. She was subsequently treated and her symptoms have significantly improved. While in the hospital, she was noted to have elevated LFTs and hence we are consulted in regards to this issue. According to the patient, she states that 3 years ago she was noted to have elevated LFTs and did have workup done by her shareholder who recommended her to take . Apparently, she did have repeat LFTs done subsequently and they were all back to normal. No definitive diagnosis was made. She had her LFTs monitored on an outpatient basis and they were normal and as of April of 2019, serum transaminases was within normal limits. During this hospitalization, she was noted to have elevated ALT and AST in the range of 360 and 280 respectively and repeat labs from today showed significant improvement with AST and ALT at 73 and 87 respectively. The patient denies any abdominal pain. Reports no nausea, vomiting. No history of jaundice or hepatitis in the past. No history of alcohol use. No history of high-risk behavior. PAST MEDICAL HISTORY: Past medical history is significant with longstanding history of diabetes mellitus, hypertension, hyperlipidemia, has been on cholesterol medications for many years. She has history of degenerative joint disease, chronic kidney disease, gastroesophageal reflux disease, hypothyroidism and degenerative joint disease. PAST SURGICAL HISTORY: Had history of cholecystectomy, adenoidectomy, hysterectomy, 3 right knee surgeries, gastric bypass surgery, tubal ligation. FAMILY HISTORY: Mother had coronary artery disease. Father had coronary artery disease status post HI. MEDICATIONS: At home include Bumex, vitamin D3, Flonase, pantoprazole, Restasis, Lotemax, Synthroid, , Voltaren, Desyrel, Cymbalta, Prandin, Hectorol, Eliquis, Pravachol, Tylenol, NovoLog, Levemir, Coreg, milk thistle, and Norvasc. ALLERGIES: TO CAFFEINE, HYDROCODONE, PENICILLIN, TRAMADOL, TRIAMCINOLONE. SOCIAL HISTORY: No smoking. No alcohol use. FAMILY HISTORY: As mentioned above. REVIEW OF SYSTEMS: CARDIOPULMONARY: No chest pain, shortness of breath. GENITOURINARY: No dysuria or hematuria. MUSCULOSKELETAL unremarkable. SKIN unremarkable. ENDOCRINE unremarkable. PSYCHIATRIC unremarkable. NEUROLOGY unremarkable. ENT/vision unremarkable. CONSTITUTIONAL: No recent weight loss. No fever, chills, night sweats. PHYSICAL EXAMINATION: She appears comfortable. No apparent distress. VITAL SIGNS stable. Blood pressure is 167/73, pulse is 75, temperature 97.3. HEENT examination unremarkable. Conjunctivae pink. Sclerae anicteric. Oral cavity no lesions. NECK: No JVD or lymph node enlargement. CHEST was clear to auscultation. HEART: Regular rate and rhythm. ABDOMEN was soft, there was mild diastasis recti noted. The liver was not palpable. Spleen not palpable. EXTREMITIES no pedal edema. SKIN no rashes. NEUROLOGIC: Alert and oriented x3. No focal deficits. LABS: Done at the time of admission to the hospital WBC 9.4, hemoglobin 12.5, platelets are normal. Basic metabolic panel showed a BUN of 39, creatinine 1.14, AST 358, ALT 106, alkaline phosphatase 164, T- bilirubin is normal. Today AST and ALT are 73 and 84 respectively. Ultrasound of the right upper quadrant showed normal-appearing liver with no evidence of biliary ductal dilation. IMPRESSION: 1. Asymptomatic elevation of serum transaminases at the time of admission to the hospital which have significantly improved on today's labs. As per the patient as well as the family, she was noted to have elevated LFTs about 3 years ago, but no definite diagnosis was made at that time. She remains on milk thistle since then. At this time, possibility of medication induced hepatitis or a component of fatty liver disease because of the underlying history of obesity and a longstanding history of diabetes mellitus needs to be considered. In any event, her serum transaminases have significantly improved today. 2. Hypoglycemia. 3. History of urinary tract infection on antibiotics presently. RECOMMENDATIONS: 1. In regards to elevated serum transaminases have significantly improved. We will continue to watch them closely. We will obtain hepatitis viral serology for A, B and C. She was advised to continue with her current medication and based on her serum transaminases, we will consider if statins have to be discontinued, but for now we will repeat labs in the morning and further recommendations will follow. Thank you for this consultation. MMODL / IJN: [id number] /
[2019-06-11 20:41] LABS: Hepatitis A Antibody IgM Non-Reactive (Non-Reactive); Hepatitis B Core IgM Non-Reactive (Non-Reactive); Hepatitis B Surface Antigen Non-Reactive (Non-Reactive); Hepatitis C IgG Antibody Non-Reactive (Non-Reactive)
== END 2019-06-11 16:14 | disposition home or self-care (01) ==
LOC: EC 21:14 → 4SSUR 06-09 00:23
PROVIDERS: ADMIT Internal Medicine; ATTEND Internal Medicine
DX: N39.0 Urinary tract infection, site not specified (principal); E11.649 Type 2 diabetes mellitus with hypoglycemia without coma; G93.41 Metabolic encephalopathy; N17.9 Acute kidney failure, unspecified; R79.89 Other specified abnormal findings of blood chemistry; K76.0 Fatty (change of) liver, not elsewhere classified; M79.7 Fibromyalgia; K21.9 Gastro-esophageal reflux disease without esophagitis; E78.5 Hyperlipidemia, unspecified; M19.90 Unspecified osteoarthritis, unspecified site; M06.9 Rheumatoid arthritis, unspecified; I12.9 Hypertensive chronic kidney disease with stage 1 through stage 4 chronic kidney disease, or unspecified chronic kidney disease; N18.3 Chronic kidney disease, stage 3 (moderate); E03.9 Hypothyroidism, unspecified; T14.8XXA Other injury of unspecified body region, initial encounter; W57.XXXA Bitten or stung by nonvenomous insect and other nonvenomous arthropods, initial encounter; M70.61 Trochanteric bursitis, right hip; R60.0 Localized edema; I48.0 Paroxysmal atrial fibrillation; Z98.84 Bariatric surgery status; Z96.652 Presence of left artificial knee joint; Z82.49 Family history of ischemic heart disease and other diseases of the circulatory system; Z82.0 Family history of epilepsy and other diseases of the nervous system; Z90.710 Acquired absence of both cervix and uterus; Z88.5 Allergy status to narcotic agent; Z88.8 Allergy status to other drugs, medicaments and biological substances; Z91.030 Bee allergy status; Z79.01 Long term (current) use of anticoagulants; Z79.891 Long term (current) use of opiate analgesic; Z79.899 Other long term (current) drug therapy; Z79.890 Hormone replacement therapy; Z91.048 Other nonmedicinal substance allergy status; Z79.4 Long term (current) use of insulin; Z90.49 Acquired absence of other specified parts of digestive tract; Z90.89 Acquired absence of other organs
CPT/HCPCS: 96365; 96376; 96361 ×2; 99285; 36415 ×2; 93005; 97161; 80053 ×2; 80074; 83605; 83735; 84100; 84443; 84484; 85025; 81001; 87086; 73502; 71046; 76700; 70450; G0378 ×3; J1956

== ENCOUNTER → 2019-07-09 | Outpatient (CLI) | payer MEDICARE, BC ==
[2019-07-09 12:07] LABS: Basophils % (A) 1 %; Eosinophils # (A) 0.2 k/uL (0-0.7); Eosinophils % (A) 4 %; HCT 41.6 % (34.0-46.0); HGB 12.9 gm/dL (11.4-16.0); Lymphocytes # (A) 1.1 k/uL (1.0-4.8); Lymphocytes % (A) 17 %; MCH 30.1 pg (25.0-35.0); MCHC 30.9 g/dL (31.0-37.0); MCV 97.4 fL (80.0-100.0); Monocytes # (A) 0.3 k/uL (0-1.0); Monocytes % (A) 5 %; Neutrophils # (A) 4.5 k/uL (1.3-7.7); Neutrophils % (A) 72 %; Platelet Count 287 k/uL (150-450); RBC 4.27 m/uL (3.80-5.40); RDW 14.4 % (11.5-15.5); WBC 6.2 k/uL (3.8-10.6)
[2019-07-09 12:08] LABS: Appearance,Urine Cloudy (Clear); Bilirubin,Urine Negative (Negative); Blood,Urine Negative (Negative); Color,Urine Yellow; Glucose,Urine (UA) 2+ (Negative); Hyaline Casts,Urine 19 /lpf (0-2); Ketones,Urine Negative (Negative); Leukocyte Esterase,Urine Large (Negative); Mucus,Urine Rare /hpf; Nitrite,Urine Negative (Negative); PH, Urine 5.5 (5.0-8.0); Protein,Urine 2+ (Negative); RBC,Urine 4 /hpf (0-5); Specific Gravity,Urine 1.017 (1.001-1.035); Squamous Epithelial Cell,Urine 7 /hpf (0-4); Urobilinogen,Urine <2.0 mg/dL (<2.0); WBC,Urine 11 /hpf (0-5)
[2019-07-09 12:52] LABS: Protein/Creatinine Ratio,Urine 2.1
[2019-07-09 17:55] LABS: % Iron Saturation 31.17 (12.00-45.00); African American GFR (CKD) 64.7 (60.0-200.0); Albumin 4.3 g/dL (3.80-4.90); Anion Gap 5.9 mmol/L (4.00-12.00); Calcium 9.8 mg/dL (8.7-10.3); Carbon Dioxide 32.1 mmol/L (21.6-31.8); Magnesium 1.9 mg/dL (1.5-2.4); Non-African American GFR(CKD) 55.8 (60.0-200.0); Phosphorus 3.7 mg/dL (2.4-5.1); Potassium 4.5 mmol/L (3.5-5.5); Uric Acid 6.8 mg/dL (2.9-7.7)
[2019-07-09 18:04] LABS: Ferritin 101.6 ng/mL (10.0-291.0)
[2019-07-10 15:29] LABS: Zinc, Serum 71 ug/dL (60-130)
== END | disposition home or self-care (01) ==
LOC: LABWHC1 10:31
PROVIDERS: ATTEND Internal Medicine Nephrology
DX: D50.9 Iron deficiency anemia, unspecified (principal); D63.8 Anemia in other chronic diseases classified elsewhere; N18.3 Chronic kidney disease, stage 3 (moderate); Z98.84 Bariatric surgery status
CPT/HCPCS: 36415; 80048; 81001; 82040; 82306; 82570; 82607; 82728; 82747; 83540; 83550; 83735; 83970; 84100; 84134; 84156; 84425; 84550; 84630; 85025

== ENCOUNTER → 2019-08-08 | Day surgery (SDC) | payer MEDICARE, BC ==
[2019-08-06 17:42] VITALS: BMI 36.1
[~2019-08-08] MED LIST: LACTATED RINGERS 1,000 ML IV SCH; LIDOCAINE 1% (10MG/ML) FOR IV START INTRADERMA PRN; LIDOCAINE 1% INJ 10MG/ML (20 ML MDV) ONE; PROPOFOL 10 MG/ML 20 ML VIAL IV ONE
--- NOTE | 2019-08-08 08:29 | P.GSHP ---
History of Present Illness H&P Date: 08/08/19 CHIEF COMPLAINT: GERD and colon screen HISTORY OF PRESENT ILLNESS: The patient is a 74-year-old female who presents with gastroesophageal reflux disease and need for colon screen. Upper and lower endoscopy were offered for further evaluation and management. PAST MEDICAL HISTORY: Please see list. PAST SURGICAL HISTORY: Please see list. MEDICATIONS: Please see list. ALLERGIES: Please see list. SOCIAL HISTORY: No illicit drug use FAMILY HISTORY: No reports of Crohn disease or ulcerative colitis. REVIEW OF ORGAN SYSTEMS: CONSTITUTIONAL: No reports of fevers or chills. GI: Denies any blood in stools or constipation. PHYSICAL EXAM: VITAL SIGNS: Stable GENERAL: Well-developed pleasant in no acute distress. HEENT: No scleral icterus. Extraocular movements grossly intact. Moist buccal mucosa. NECK: Supple without lymphadenopathy. CHEST: Unlabored respirations. Equal bilateral excursions. CARDIOVASCULAR: Regular rate and rhythm. Distal 2+ pulses. ABDOMEN: Soft, nondistended. MUSCULOSKELETAL: No clubbing, cyanosis, or edema. ASSESSMENT: 1. Gastroesophageal reflux disease 2. Colon screen. PLAN: 1. Recommend proceeding with an upper and lower endoscopy Past Medical History Past Medical History: Atrial Fibrillation, Chest Pain / Angina, Diabetes Mellitus, Eye Disorder, Fibromyalgia, GERD/Reflux, Hyperlipidemia, Hypertension, Osteoarthritis (OA), Pneumonia, Renal Disease, Rheumatoid Arthritis (RA), Thyroid Disorder Additional Past Medical History / Comment(s): Mild glaucoma stabe. BURSITIS, hx falls, past chronic sacral wound, occ Vertigo, anemia, Constipation History of Any Multi-Drug Resistant Organisms: None Reported Past Surgical History: Adenoidectomy, Cholecystectomy, Hysterectomy, Joint Replacement, Orthopedic Surgery, Tonsillectomy Additional Past Surgical History / Comment(s): 3 RIGHT KNEE SURGERIES AND 2 LEFT, TOTAL KNEE REPLACEMENTS SURGERIES. D&C'S. Lap Ignacio-en-Y gastric bypass [place] [address] Zambrano , total hysterectomy for fibroid tumor, tubal ligation Past Anesthesia/Blood Transfusion Reactions: Motion Sickness Additional Past Anesthesia/Blood Transfusion Reaction / Comment(s): Pt received blood in 2012 without reaction. Smoking Status: Never smoker - Past Family History Mother Family Medical History: Coronary Artery Disease (CAD) Additional Family Medical History / Comment(s): age 90 of heart failure. Had hx of Parkinsons and Narcolepsy Father Family Medical History: Coronary Artery Disease (CAD) Additional Family Medical History / Comment(s): age 73 of massive heart attack Medications and Allergies Home Medications Medication Instructions Recorded Confirmed Type Bumetanide [BUMEX] 1 mg PO DAILY 10/02/14 08/06/19 History Cholecalciferol [Vitamin D3 (25 2,000 unit PO TID 10/02/14 08/06/19 History Mcg = 1000 Iu)] Fluticasone Propionate [Flonase 2 spray EA NOSTRIL BID PRN 10/02/14 08/06/19 H istory Allergy Relief] Pantoprazole Sodium 40 mg PO AC-BRKFST 10/02/14 08/06/19 History cycloSPORINE [Restasis] 1 drop BOTH EYES BID PRN 10/02/14 08/06/19 History DULoxetine HCL [Cymbalta] 60 mg PO HS 04/16/15 08/06/19 History traZODone HCL [Desyrel] 50 mg PO HS 06/06/15 08/06/19 History Diclofenac Sodium [Voltaren Gel] 2 gram TOPICAL DAILY PRN 12/16/16 08/06/19 History Gabapentin [Neurontin] 100 mg PO AC-BID@1200,1800 12/16/16 08/06/19 History Levothyroxine Sodium [Synthroid] 137 mcg PO AC-BRKFST 12/16/16 08/06/19 History Loteprednol Etabonate [Lotemax] 1 drop BOTH EYES DAILY 04/13/17 08/06/19 History Doxercalciferol [Hectorol] 0.5 mcg PO MOTUWETHFR@2100 07/04/17 08/06/19 History SILVER sulfADIAZINE Cream 1 applic TOPICAL DAILY PRN 07/04/17 08/06/19 History [Silvadene 1% Cream] Apixaban [Eliquis] 5 mg PO BID-W/MEALS 09/27/18 08/06/19 History Optive Eye Drop 1 drop BOTH EYES DAILY PRN 09/27/18 08/06/19 History Pravastatin Sodium [Pravachol] 20 mg PO AC-SUPPER 09/27/18 08/06/19 History Acetaminophen [Tylenol] 500 mg PO Q4H PRN 04/03/19 08/06/19 History Carvedilol [Coreg] 6.25 mg PO BID-W/MEALS 05/01/19 08/06/19 History Cinnamon 250 Mg 250 mg PO AC-BID@0700,1200 05/01/19 08/06/19 History Milk Thistle 200 Mg 200 mg PO BID 05/01/19 08/06/19 History Insulin Aspart [NovoLOG Flexpen] See Protocol SQ AC-TID #0 06/11/19 08/06/19 Rx amLODIPine [Norvasc] 5 mg PO BID #60 tab 06/11/19 08/06/19 Rx Hydrocodone/Acetaminophen [[place] 1 tab PO TID PRN 08/06/19 08/06/19 History 10-325] Insulin Detemir [Levemir Flextouch] 1 - 12 units SQ HS 08/06/19 08/06/19 History Allergies Allergy/AdvReac Type Severity Reaction Status Date / Time adhesive tape Allergy Rash/Hives Verified 08/06/19 17:06 triamcinolone Allergy Unknown Verified 08/06/19 17:06 venom-honey bee Allergy Swelling Verified 08/06/19 17:06 caffeine AdvReac Nausea & Verified 08/06/19 17:06 Vomiting & Diarrhea hydrocodone bitartrate AdvReac Itching Verified 08/06/19 17:06 [From Lorcet (hydrocodone)] Penicillins AdvReac Nausea & Verified 08/06/19 17:06 Vomiting & Diarrhea tramadol HCl [From Ultram] AdvReac Itching Verified 08/06/19 17:06
[2019-08-08 08:57] VITALS: TEMP 97.2
[2019-08-08 08:58] LABS: Glucose,Whole Blood 189 mg/dL (75-99)
--- NOTE | 2019-08-08 09:14 | P.PCN ---
Date of Procedure: 08/08/19 Description of Procedure: PREOPERATIVE DIAGNOSIS: Dysphagia. Nausea with vomiting. Morbid obesity. Chronic anticoagulant use POSTOPERATIVE DIAGNOSIS: Dysphagia. Nausea with vomiting. Morbid obesity. 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 SURGEON: Evelyn Weathers MD ANESTHESIA: MAC. INDICATIONS: The patient is a 74-year-old female who presents with a history of dysphagia including nausea and vomiting. Benefits and risks of the procedure were described. Informed consent was obtained. DESCRIPTION: The patient was brought into the endoscopy suite and laid in the left lateral decubitus position. After a timeout was confirmed, the procedure was initiated. An Olympus gastroscope was passed along the posterior oropharynx down to the distal esophagus where the squamocolumnar junction was unremarkable. The gastric pouch was entered. A gastrojejunal stricture of 15 mm was found as the adult gastroscope was 9.5 mm in size. A EPS balloon dilator was placed through the scope. Final insufflation up to 20 mm was performed with a total of 2 minutes. The scope was advanced up to 60 cm from the incisors into the Ignacio limb. The mucosa of the gastrojejunal anastomosis was intact. No chronic gastrojejunal marginal ulcer was encountered. No full-thickness injury was encountered. The GI tract was desufflated. The patient tolerated the procedure well. FINDINGS: Squamocolumnar junction unremarkable at 37 cm. Stricture of approximately 15 mm encountered. No chronic gastrojejunal ulceration encountered. Successful balloon dilatation to 20 mm. Gastric pouch 6 cm. Tertiary contractions of the esophagus, consistent with presbyesophagus RECOMMENDATIONS: Upper endoscopy as needed
--- NOTE | 2019-08-08 09:36 | P.PCN ---
Date of Procedure: 08/08/19 Description of Procedure: PREOPERATIVE DIAGNOSIS: Colonoscopy screening. POSTOPERATIVE DIAGNOSIS: Colonoscopy screening. Diverticulosis, scattered. External/internal hemorrhoids, grade 2 OPERATION: Colonoscopy to the ascending colon SURGEON: Evelyn Weathers MD. ANESTHESIA: MAC. INDICATIONS: The patient is a 74-year-old female who presents for colonoscopy screening. Last colonoscopy over 10 years ago. Benefits and risks were described and informed consent was obtained. DESCRIPTION OF PROCEDURE: The patient had undergone Gatorade, MiraLAX and Dulcolax prep. She had been brought into the operating room and laid in the left lateral decubitus position. After adequate intravenous sedation, the rectum was examined with 2% lidocaine jelly. External hemorrhoids were encountered. The rectal tone was within normal limits. No lesions were palpated in the rectal vault. An Olympus colonoscope was advanced to the ascending colon despite abdominal pressure. She had moderate redundant sigmoid colon. The prep was fair. Scattered diverticulosis was encountered. No large colonic polyps were found. No evidence of focal colitis was found. Retroflexion of the scope demonstrated grade 2 internal hemorrhoids without active bleeding or inflammation. The colon was desufflated. The patient had tolerated the procedure well. Withdrawal time was over 6 minutes. FINDINGS: Aronchick preparation quality scale 2 (1-5) Internal hemorrhoids, grade 2 External prolapsed hemorrhoids. Arteriovenous malformations along sigmoid colon without bleeding No large adenomatous polyps. No focal colitis. RECOMMENDATIONS: Recommend Cologaurd in 2 years, 2021 Barium enema for visualization of the cecum Plan - Discharge Summary Discharge Rx Participant: No New Discharge Prescriptions: Continue Bumetanide [BUMEX] 1 mg PO DAILY cycloSPORINE [Restasis] 1 drop BOTH EYES BID PRN PRN Reason: Eye Irritation Cholecalciferol [Vitamin D3 (25 Mcg = 1000 Iu)] 2,000 unit PO TID Fluticasone Propionate [Flonase Allergy Relief] 2 spray EA NOSTRIL BID PRN PRN Reason: ALLERGY SX Pantoprazole Sodium 40 mg PO AC-BRKFST DULoxetine HCL [Cymbalta] 60 mg PO HS traZODone HCL [Desyrel] 50 mg PO HS Gabapentin [Neurontin] 100 mg PO AC-BID@1200,1800 Levothyroxine Sodium [Synthroid] 137 mcg PO AC-BRKFST Diclofenac Sodium [Voltaren Gel] 2 gram TOPICAL DAILY PRN PRN Reason: Pain Loteprednol Etabonate [Lotemax] 1 drop BOTH EYES DAILY SILVER sulfADIAZINE Cream [Silvadene 1% Cream] 1 applic TOPICAL DAILY PRN PRN Reason: Skin Irritation Doxercalciferol [Hectorol] 0.5 mcg PO MOTUWETHFR@2100 Optive Eye Drop 1 drop BOTH EYES DAILY PRN PRN Reason: DRY EYES Apixaban [Eliquis] 5 mg PO BID-W/MEALS Pravastatin Sodium [Pravachol] 20 mg PO AC-SUPPER Acetaminophen [Tylenol] 500 mg PO Q4H PRN PRN Reason: Pain Cinnamon 250 Mg 250 mg PO AC-BID@0700,1200 Milk Thistle 200 Mg 200 mg PO BID Carvedilol [Coreg] 6.25 mg PO BID-W/MEALS Insulin Aspart [NovoLOG Flexpen] See Protocol SQ AC-TID #0 amLODIPine [Norvasc] 5 mg PO BID #60 tab Hydrocodone/Acetaminophen [[place] 10-325] 1 tab PO TID PRN PRN Reason: Pain Insulin Detemir [Levemir Flextouch] 1 - 12 units SQ HS Discharge Medication List Bumetanide [BUMEX] 1 mg PO DAILY 10/02/14 [History] Cholecalciferol [Vitamin D3 (25 Mcg = 1000 Iu)] 2,000 unit PO TID 10/02/14 [History] Fluticasone Propionate [Flonase Allergy Relief] 2 spray EA NOSTRIL BID PRN 10/02/14 [History] Pantoprazole Sodium 40 mg PO AC-BRKFST 10/02/14 [History] cycloSPORINE [Restasis] 1 drop BOTH EYES BID PRN 10/02/14 [History] DULoxetine HCL [Cymbalta] 60 mg PO HS 04/16/15 [History] traZODone HCL [Desyrel] 50 mg PO HS 06/06/15 [History] Diclofenac Sodium [Voltaren Gel] 2 gram TOPICAL DAILY PRN 12/16/16 [History] Gabapentin [Neurontin] 100 mg PO AC-BID@1200,1800 12/16/16 [History] Levothyroxine Sodium [Synthroid] 137 mcg PO AC-BRKFST 12/16/16 [History] Loteprednol Etabonate [Lotemax] 1 drop BOTH EYES DAILY 04/13/17 [History] Doxercalciferol [Hectorol] 0.5 mcg PO MOTUWETHFR@2100 07/04/17 [History] SILVER sulfADIAZINE Cream [Silvadene 1% Cream] 1 applic TOPICAL DAILY PRN 07/04/17 [History] Apixaban [Eliquis] 5 mg PO BID-W/MEALS 09/27/18 [History] Optive Eye Drop 1 drop BOTH EYES DAILY PRN 09/27/18 [History] Pravastatin Sodium [Pravachol] 20 mg PO AC-SUPPER 09/27/18 [History] Acetaminophen [Tylenol] 500 mg PO Q4H PRN 04/03/19 [History] Carvedilol [Coreg] 6.25 mg PO BID-W/MEALS 05/01/19 [History] Cinnamon 250 Mg 250 mg PO AC-BID@0700,1200 05/01/19 [History] Milk Thistle 200 Mg 200 mg PO BID 05/01/19 [History] Insulin Aspart [NovoLOG Flexpen] See Protocol SQ AC-TID #0 06/11/19 [Rx] amLODIPine [Norvasc] 5 mg PO BID #60 tab 06/11/19 [Rx] Hydrocodone/Acetaminophen [[place] 10-325] 1 tab PO TID PRN 08/06/19 [History] Insulin Detemir [Levemir Flextouch] 1 - 12 units SQ HS 08/06/19 [History] Follow up Appointment(s)/Referral(s): Evelyn Weathers MD [STAFF PHYSICIAN] - 08/21/19 Patient Instructions/Handouts: Diverticulosis (DC), Diverticulosis Diet (GEN), Esophageal Dilation (DC) Activity/Diet/Wound Care/Special Instructions: Start Eliquis tomorrow. Recommend Cologaurd in 2 years, 2021 Discharge Disposition: HOME SELF-CARE
[2019-08-08 09:59] LABS: Glucose,Whole Blood 152 mg/dL (75-99)
[2019-08-08 10:03] VITALS: PULSE 82; RESP 18
[2019-08-08 11:04] VITALS: BP 142/81
--- NOTE | 2019-08-08 12:56 | XR ---
EXAMINATION TYPE: XR abdomen 1V DATE OF EXAM: 08/08/2019 12:37 PM CLINICAL HISTORY: Failed colonoscopy. TECHNIQUE: Single upright image of the abdomen is obtained. COMPARISON: None. FINDINGS: Supine imaging limits evaluation for pneumoperitoneum. No gross evidence of pneumoperitoneu m is seen. Cholecystectomy clips are noted. Lung bases are well aerated. Surgical sutures in the left upper abdomen. Dextroscoliosis of the thoracolumbar junction and severe degenerative changes of the spine. Diffuse osseous demineralization noted. Surgical sutures are also seen in the left lower abdom en. IMPRESSION: Nonobstructive bowel gas pattern.
== END | disposition home or self-care (01) ==
LOC: ORWHC2ENDO 08:09
PROVIDERS: ATTEND Surgery Plastic and Reconstructive Surgery
DX: K56.699 Other intestinal obstruction unspecified as to partial versus complete obstruction (principal); K31.89 Other diseases of stomach and duodenum; K22.8 Other specified diseases of esophagus; Z12.11 Encounter for screening for malignant neoplasm of colon; K21.9 Gastro-esophageal reflux disease without esophagitis; K55.20 Angiodysplasia of colon without hemorrhage; K64.4 Residual hemorrhoidal skin tags; K57.30 Diverticulosis of large intestine without perforation or abscess without bleeding; K64.1 Second degree hemorrhoids; I48.91 Unspecified atrial fibrillation; I20.9 Angina pectoris, unspecified; I10 Essential (primary) hypertension; E11.9 Type 2 diabetes mellitus without complications; E78.5 Hyperlipidemia, unspecified; H40.9 Unspecified glaucoma; M79.7 Fibromyalgia; M19.90 Unspecified osteoarthritis, unspecified site; M06.9 Rheumatoid arthritis, unspecified; E07.9 Disorder of thyroid, unspecified; N28.9 Disorder of kidney and ureter, unspecified; D64.9 Anemia, unspecified; K59.00 Constipation, unspecified; M71.9 Bursopathy, unspecified; E66.01 Morbid (severe) obesity due to excess calories; Z87.01 Personal history of pneumonia (recurrent); Z91.81 History of falling; Z90.89 Acquired absence of other organs; Z90.49 Acquired absence of other specified parts of digestive tract; Z90.710 Acquired absence of both cervix and uterus; Z96.652 Presence of left artificial knee joint; Z98.84 Bariatric surgery status; Z98.51 Tubal ligation status; Z82.49 Family history of ischemic heart disease and other diseases of the circulatory system; Z82.0 Family history of epilepsy and other diseases of the nervous system; Z79.01 Long term (current) use of anticoagulants; Z79.890 Hormone replacement therapy; Z79.4 Long term (current) use of insulin; Z79.899 Other long term (current) drug therapy; Z91.030 Bee allergy status; Z88.5 Allergy status to narcotic agent; Z88.0 Allergy status to penicillin; Z88.8 Allergy status to other drugs, medicaments and biological substances; Z91.09 Other allergy status, other than to drugs and biological substances; Z68.35 Body mass index [BMI] 35.0-35.9, adult
CPT/HCPCS: 43245; 74018; G0121; J2001; J2704; C1726; 43249; 45378

== ENCOUNTER → 2019-11-05 | Outpatient (CLI) | payer MEDICARE, BC ==
[2019-11-05 12:36] LABS: HCT 37.6 % (34.0-46.0); HGB 12.2 gm/dL (11.4-16.0); MCH 32.7 pg (25.0-35.0); MCHC 32.5 g/dL (31.0-37.0); MCV 100.8 fL (80.0-100.0); Mean Platelet Volume 8.7; Platelet Count 298 k/uL (150-450); RBC 3.73 m/uL (3.80-5.40); RDW 13.2 % (11.5-15.5)
[2019-11-05 18:52] LABS: ALT 33 U/L (8-44); AST 36 U/L (13-35); African American GFR (CKD) 64.7 (60.0-200.0); Albumin/Globulin Ratio 1.79 (1.60-3.17); Alkaline Phosphatase 111 U/L (41-126); Bilirubin, Conjugated <0.20 mg/dL (0.20-0.40); Calcium 9.6 mg/dL (8.7-10.3); Chloride 102 mmol/L (96-109); Chol/HDL Ratio 2.27; Cholesterol 175 mg/dL (0-200); Globulin 2.4 g/dL (1.6-3.3); Glucose 145 mg/dL (70-110); LDL Cholesterol,Calculated 76.2 mg/dL (0.0-131.0); Non-African American GFR(CKD) 55.8 (60.0-200.0); Potassium 4.2 mmol/L (3.5-5.5); Sodium 139 mmol/L (135-145); Total Bilirubin 0.3 mg/dL (0.2-1.2); Total Protein 6.7 g/dL (6.2-8.2)
[2019-11-05 20:27] LABS: Hemoglobin A1C 8.6 % (4.0-6.0)
== END | disposition home or self-care (01) ==
LOC: LABWHC1 10:01
PROVIDERS: ATTEND Internal Medicine Endocrinology, Diabetes & Metabolism
DX: E11.65 Type 2 diabetes mellitus with hyperglycemia (principal); N18.9 Chronic kidney disease, unspecified; E11.22 Type 2 diabetes mellitus with diabetic chronic kidney disease; I48.0 Paroxysmal atrial fibrillation; E78.2 Mixed hyperlipidemia
CPT/HCPCS: 36415; 80053; 80061; 82248; 83036; 84443; 85027

== ENCOUNTER → 2019-12-11 | Outpatient (CLI) | payer MEDICARE, BC ==
[2019-12-11 12:37] LABS: Basophils % (A) 0 %; Eosinophils # (A) 0.2 k/uL (0-0.7); Eosinophils % (A) 2 %; HCT 38.1 % (34.0-46.0); HGB 11.8 gm/dL (11.4-16.0); Hypochromasia Slight; Lymphocytes # (A) 1.1 k/uL (1.0-4.8); Lymphocytes % (A) 13 %; MCH 31.4 pg (25.0-35.0); MCV 101.3 fL (80.0-100.0); Macrocytosis Slight; Mean Platelet Volume 7.4; Monocytes # (A) 0.6 k/uL (0-1.0); Monocytes % (A) 7 %; Neutrophils # (A) 6.7 k/uL (1.3-7.7); Neutrophils % (A) 76 %; Platelet Count 292 k/uL (150-450); RBC 3.76 m/uL (3.80-5.40); RDW 13.4 % (11.5-15.5); WBC 8.9 k/uL (3.8-10.6)
[2019-12-11 12:40] LABS: Appearance,Urine Clear (Clear); Bacteria,Urine Rare /hpf; Bilirubin,Urine Negative (Negative); Blood,Urine Moderate (Negative); Color,Urine Yellow; Glucose,Urine (UA) Negative (Negative); Hyaline Casts,Urine 4 /lpf (0-2); Ketones,Urine Negative (Negative); Leukocyte Esterase,Urine Small (Negative); Mucus,Urine Rare /hpf; Nitrite,Urine Negative (Negative); PH, Urine 5.5 (5.0-8.0); Protein,Urine 2+ (Negative); RBC,Urine 7 /hpf (0-5); Specific Gravity,Urine 1.024 (1.001-1.035); Squamous Epithelial Cell,Urine 3 /hpf (0-4); Urobilinogen,Urine <2.0 mg/dL (<2.0); WBC,Urine 6 /hpf (0-5)
[2019-12-11 12:42] LABS: Protein/Creatinine Ratio,Urine 0.784
[2019-12-11 20:15] LABS: % Iron Saturation 8.54 (12.00-45.00); African American GFR (CKD) 51.9 (60.0-200.0); Albumin 4.2 g/dL (3.80-4.90); Anion Gap 9.1 mmol/L (4.00-12.00); BUN/Creat Ratio 23.33 Ratio (12.00-20.00); Calcium 9.8 mg/dL (8.7-10.3); Carbon Dioxide 28.9 mmol/L (21.6-31.8); Ferritin 42.8 ng/mL (10.0-291.0); Magnesium 1.8 mg/dL (1.5-2.4); Non-African American GFR(CKD) 44.8 (60.0-200.0); Phosphorus 4.3 mg/dL (2.4-5.1); Potassium 4.3 mmol/L (3.5-5.5)
== END | disposition home or self-care (01) ==
LOC: LABWHC1 11:07
PROVIDERS: ATTEND Nurse Practitioner Family
DX: N18.3 Chronic kidney disease, stage 3 (moderate) (principal); E55.9 Vitamin D deficiency, unspecified; N25.81 Secondary hyperparathyroidism of renal origin; M10.9 Gout, unspecified; N39.0 Urinary tract infection, site not specified; R80.9 Proteinuria, unspecified; D50.9 Iron deficiency anemia, unspecified; D63.1 Anemia in chronic kidney disease
CPT/HCPCS: 36415; 80048; 81001; 82040; 82306; 82570; 82728; 83540; 83550; 83735; 83970; 84100; 84156; 84550; 85025

== ENCOUNTER → 2020-02-25 | Outpatient (CLI) | payer MEDICARE, BC ==
--- NOTE | 2020-02-25 18:21 | BD ---
EXAMINATION TYPE: Axial Bone Density DATE OF EXAM: 02/25/2020 COMPARISON: NONE CLINICAL HISTORY: Postmenopausal screening Height: 59 Weight: 190.3 FRAX RISK QUESTIONS: Alcohol (3 or more units per day): no Family History (Parent hip fracture): no Glucocorticoids (More than 3mos): no (Ex: prednisone, prednisolone, methylprednisolone, dexamethasone, and hydrocortisone). History of Fracture in Adulthood: yes Secondary Osteoporosis: 1. Type 1 Diabetes: yes 2. Hyperthyroidism: no 3. Menopause before 45: yes 4. Malnutrition: no 5. Chronic liver disease: no Rheumatoid Arthritis: yes Current Tobacco Use: no RISK FACTORS HISTORY OF: Family History of Osteoporosis: yes mother Active: no Diet low in dairy products/other sources of calcium: no Postmenopausal woman: hysterectomy age 41 Lost more than 2 inches in height since high school: yes Frequent falls: yes MEDICATIONS: cholesterol meds, rheumatoid meds, Thyroid Medications: synthroid How Lon plus years Additional History: EXAM MEASUREMENTS: Bone mineral densitometry was performed using the [email or web address] System. Bone mineral density as measured about the Lumbar spine is: ----- L1-L4(G/cm2): 1.223 T Score Values are as follows: ----- L2: 0.1 ----- L3: 1.2 ----- L4: 0.4 ----- L1-L4: 0.4 Bone mineral density has: decreased -5.9 % since study of: 04.18.2013 Bone mineral density about the R hip (g/cm2): 0.836 Bone mineral density about the L hip (g/cm2): 0.873 T Score values are as follows: -----R Neck: -1.5 -----L Neck: -1.2 -----R Total: -1.0 -----L Total: -1.2 Bone mineral density has: decreased -13.3 % since study of: 04.18.2013 IMPRESSION: Osteopenia (T Score between -2.5 and -1). There is slightly increased risk of fracture and the patient may be considered for treatment. Re-Screen 2-5 years. NOTE: T-SCORE=SD OF THE YOUNG ADULT MEAN.
--- NOTE | 2020-02-26 11:46 | MM ---
Reason for exam: screening (asymptomatic). Last mammogram was performed 1 year and 6 months ago. History: Patient is postmenopausal. MG discontinued stereo core RT of the right breast, October 14, 2014. Benign left mammotome panel of the left breast, April 24, 2007. Took estrogen for 21 years beginning at age 42. Physical Findings: A clinical breast exam by your physician is recommended on an annual basis and results should be correlated with mammographic findings. MG 3D Screening Mammo W/Cad Bilateral CC and MLO view(s) were taken. Prior study comparison: August 16, 2018, bilateral MG 3d screening mammo w/cad. June 17, 2017, bilateral MG 3d screening mammo w/cad. The breast tissue is heterogeneously dense. This may lower the sensitivity of mammography. Benign appearing bilateral calcifications. No significant changes when compared with prior studies. ASSESSMENT: Benign, BI-RAD 2 RECOMMENDATION: Routine screening mammogram of both breasts in 1 year.
== END | disposition home or self-care (01) ==
LOC: RADMAMWWP 10:00
PROVIDERS: ATTEND Internal Medicine
DX: Z12.31 Encounter for screening mammogram for malignant neoplasm of breast (principal); M85.80 Other specified disorders of bone density and structure, unspecified site; Z78.0 Asymptomatic menopausal state
CPT/HCPCS: 77063; 77067; 77080

== ENCOUNTER → 2020-04-22 | Outpatient (CLI) | payer MEDICARE, BC ==
[2020-04-22 12:41] LABS: Basophils % (A) 1 %; Eosinophils # (A) 0.3 k/uL (0-0.7); Eosinophils % (A) 4 %; HCT 38.7 % (34.0-46.0); HGB 12.3 gm/dL (11.4-16.0); Lymphocytes # (A) 1.2 k/uL (1.0-4.8); Lymphocytes % (A) 19 %; MCH 31.5 pg (25.0-35.0); MCHC 31.8 g/dL (31.0-37.0); MCV 99.1 fL (80.0-100.0); Mean Platelet Volume 7.6; Monocytes # (A) 0.4 k/uL (0-1.0); Monocytes % (A) 6 %; Neutrophils # (A) 4.4 k/uL (1.3-7.7); Neutrophils % (A) 68 %; Platelet Count 314 k/uL (150-450); RBC 3.91 m/uL (3.80-5.40); RDW 13.3 % (11.5-15.5); WBC 6.4 k/uL (3.8-10.6)
[2020-04-22 12:51] LABS: Appearance,Urine Clear (Clear); Bacteria,Urine Rare /hpf; Bilirubin,Urine Negative (Negative); Blood,Urine Negative (Negative); Color,Urine Yellow; Glucose,Urine (UA) Negative (Negative); Ketones,Urine Negative (Negative); Leukocyte Esterase,Urine Small (Negative); Mucus,Urine Rare /hpf; Nitrite,Urine Negative (Negative); PH, Urine 6.5 (5.0-8.0); Protein,Urine 1+ (Negative); RBC,Urine <1 /hpf (0-5); Specific Gravity,Urine 1.018 (1.001-1.035); Squamous Epithelial Cell,Urine 1 /hpf (0-4); Urobilinogen,Urine <2.0 mg/dL (<2.0); WBC,Urine 3 /hpf (0-5)
[2020-04-22 13:06] LABS: Creatinine,Urine Random 59.4 mg/dL; Protein/Creatinine Ratio,Urine 0.892
[2020-04-22 18:42] LABS: % Iron Saturation 34.98 (12.00-45.00); African American GFR (CKD) 57.7 (60.0-200.0); Albumin 4.2 g/dL (3.80-4.90); Anion Gap 8.3 mmol/L (4.00-12.00); BUN/Creat Ratio 26.36 Ratio (12.00-20.00); Carbon Dioxide 28.7 mmol/L (21.6-31.8); Non-African American GFR(CKD) 49.8 (60.0-200.0); Phosphorus 4.1 mg/dL (2.4-5.1); Potassium 4.5 mmol/L (3.5-5.5); Uric Acid 5.5 mg/dL (2.9-7.7)
[2020-04-22 18:50] LABS: Ferritin 173.7 ng/mL (10.0-291.0)
== END | disposition home or self-care (01) ==
LOC: LABWHC1 10:14
PROVIDERS: ATTEND Nurse Practitioner Family
DX: D63.8 Anemia in other chronic diseases classified elsewhere (principal); N18.30 Chronic kidney disease, stage 3 unspecified; E55.9 Vitamin D deficiency, unspecified; N25.81 Secondary hyperparathyroidism of renal origin; M10.9 Gout, unspecified; N39.0 Urinary tract infection, site not specified; R80.9 Proteinuria, unspecified
CPT/HCPCS: 36415; 80048; 81001; 82040; 82306; 82570; 82728; 83540; 83550; 83735; 83970; 84100; 84156; 84550; 85025

== ENCOUNTER → 2020-07-11 | Outpatient (CLI) | payer MEDICARE, BC ==
--- NOTE | 2020-07-11 13:33 | XR ---
EXAMINATION TYPE: XR chest 2V DATE OF EXAM: 07/11/2020 COMPARISON: 06/08/2019 HISTORY: Shortness of breath TECHNIQUE: Frontal and lateral views of the chest are obtained. FINDINGS: Scattered senescent parenchymal changes noted. Hyperinflation compatible with COPD. No evidence for infiltrate. No evidence for atelectasis. Heart size is stable. Mediastinal structures are stable and grossly unremarkable. No evidence for hilar prominence. Degenerative changes dorsal spine. IMPRESSION: 1. No evidence for acute pulmonary disease.
== END | disposition home or self-care (01) ==
LOC: RADXRMAIN 13:06
PROVIDERS: ATTEND Internal Medicine
DX: R06.02 Shortness of breath (principal); R06.2 Wheezing
CPT/HCPCS: 71046

== ENCOUNTER → 2020-07-29 | Outpatient (CLI) | payer MEDICARE, BC ==
[2020-07-29 13:18] LABS: Appearance,Urine Clear (Clear); Bacteria,Urine Rare /hpf; Bilirubin,Urine Negative (Negative); Blood,Urine Negative (Negative); Color,Urine Yellow; Glucose,Urine (UA) Negative (Negative); Ketones,Urine Negative (Negative); Leukocyte Esterase,Urine Small (Negative); Nitrite,Urine Negative (Negative); PH, Urine 7.5 (5.0-8.0); Protein,Urine 1+ (Negative); RBC,Urine 1 /hpf (0-5); Specific Gravity,Urine 1.016 (1.001-1.035); Squamous Epithelial Cell,Urine 1 /hpf (0-4); Urobilinogen,Urine <2.0 mg/dL (<2.0); WBC,Urine 4 /hpf (0-5)
[2020-07-29 13:54] LABS: Creatinine,Urine Random 67.3 mg/dL; Protein/Creatinine Ratio,Urine 0.773
[2020-07-29 19:17] LABS: HGB 11.3 g/dL (12.0-15.0); MCH 31.5 pg (27.0-32.0); MCHC 31.4 g/dL (32.0-37.0); MCV 100.3 fL (80.0-97.0); RBC 3.59 X 10*6/uL (4.10-5.20); RDW 14.1 % (11.5-14.5); WBC 6.75 X 10*3/uL (4.50-10.00)
[2020-07-29 19:18] LABS: Basophils # (A) 0.05 X 10*3/uL (0.00-0.10); Basophils % (A) 0.7 %; Eosinophils # (A) 0.28 X 10*3/uL (0.04-0.35); Eosinophils % (A) 4.1 %; Lymphocytes % (A) 20.7 %; Mean Platelet Volume 10.9 fL (9.5-12.2); Monocytes # (A) 0.64 X 10*3/uL (0.20-1.00); Monocytes % (A) 9.5 %; Neutrophils # (A) 4.36 X 10*3/uL (1.80-7.70); Neutrophils % (A) 64.7 %; Platelet Count 318 X 10*3/uL (140-440)
[2020-07-29 21:31] LABS: % Iron Saturation 24.07 (12.00-45.00); ALT 27 U/L (8-44); AST 35 U/L (13-35); African American GFR (CKD) 64.3 (60.0-200.0); Albumin/Globulin Ratio 1.91 (1.60-3.17); Alkaline Phosphatase 94 U/L (41-126); Bilirubin, Conjugated <0.20 mg/dL (0.20-0.40); Calcium 9.7 mg/dL (8.7-10.3); Chloride 103 mmol/L (96-109); Chol/HDL Ratio 2.33; Cholesterol 186 mg/dL (0-200); Globulin 2.3 g/dL (1.6-3.3); Glucose 135 mg/dL (70-110); Iron 71 ug/dL (50-170); LDL Cholesterol,Calculated 85.8 mg/dL (0.0-131.0); Non-African American GFR(CKD) 55.5 (60.0-200.0); Phosphorus 4.2 mg/dL (2.4-5.1); Potassium 4.5 mmol/L (3.5-5.5); Sodium 142 mmol/L (135-145); Total Bilirubin 0.3 mg/dL (0.2-1.2); Total Iron Binding Capacity 295 ug/dL (228-460); Total Protein 6.7 g/dL (6.2-8.2); Uric Acid 6.8 mg/dL (2.9-7.7)
== END | disposition home or self-care (01) ==
LOC: LABWHC1 10:54
PROVIDERS: ATTEND Internal Medicine Nephrology
DX: N25.81 Secondary hyperparathyroidism of renal origin (principal); E55.9 Vitamin D deficiency, unspecified; N18.30 Chronic kidney disease, stage 3 unspecified; M10.9 Gout, unspecified; N39.0 Urinary tract infection, site not specified; D63.1 Anemia in chronic kidney disease; R80.9 Proteinuria, unspecified; R41.3 Other amnesia; I48.0 Paroxysmal atrial fibrillation; I11.9 Hypertensive heart disease without heart failure
CPT/HCPCS: 36415; 80053; 80061; 81001; 82248; 82306; 82570; 82607; 82728; 83540; 83550; 83735; 83970; 84100; 84156; 84443; 84550; 85025

== ENCOUNTER → 2020-10-06 | Outpatient (CLI) | payer MEDICARE, BC ==
[2020-10-06 22:10] LABS: Chol/HDL Ratio 2.45; LDL Cholesterol,Calculated 91.4 mg/dL (0.0-131.0); VLDL Calculation 18.6 mg/dL (5.00-40.00)
== END | disposition home or self-care (01) ==
LOC: LABWHC1 10:52
PROVIDERS: ATTEND Psychiatry & Neurology Neurology
DX: E78.2 Mixed hyperlipidemia (principal); R41.3 Other amnesia
CPT/HCPCS: 36415; 80061; 82607; 84450; 84460

== ENCOUNTER → 2020-10-21 | Outpatient (CLI) | payer MEDICARE, BC ==
[2020-10-21 21:04] LABS: Albumin 4.5 g/dL (3.80-4.90); Albumin/Globulin Ratio 1.73 (1.60-3.17); Anion Gap 8.6 mmol/L (4.00-12.00); BUN/Creat Ratio 26.67 Ratio (12.00-20.00); Calcium 10.2 mg/dL (8.7-10.3); Carbon Dioxide 29.4 mmol/L (21.6-31.8); Chol/HDL Ratio 2.24; Globulin 2.6 g/dL (1.6-3.3); Potassium 4.2 mmol/L (3.5-5.5); Total Bilirubin 0.4 mg/dL (0.3-1.2); Total Protein 7.1 g/dL (6.2-8.2)
[2020-10-21 22:13] LABS: Hemoglobin A1C 6.7 % (4.0-6.0)
== END | disposition home or self-care (01) ==
LOC: LABWHC1 12:09
PROVIDERS: ATTEND Internal Medicine Endocrinology, Diabetes & Metabolism
DX: E11.65 Type 2 diabetes mellitus with hyperglycemia (principal)
CPT/HCPCS: 36415; 80053; 80061; 83036; 84443

== ENCOUNTER 2020-12-31 06:04 | Inpatient (IN) | payer MEDICARE, BC ==
[2020-12-31] MEDS ORDERED: SODIUM CHLORIDE 0.9% 500 ML 500 ML IV ONE (06:34)
--- NOTE | 2020-12-31 06:54 | ED ---
Altered Mental Status HPI - General Chief Complaint: Altered Mental Status Stated Complaint: Weakness Time Seen by Provider: 12/31/20 06:22 Source: patient, EMS, RN notes reviewed Mode of arrival: EMS Limitations: altered mental status - History of Present Illness Initial Comments: This is a 75-year-old female presents emergency Department via EMS with chief complaint of confusion. Patient states that she just has not felt last few days she has no specific complaints. Patient denies any headache, dizziness, blurred vision, abdominal pain, chest or shortness breath. Family states that she's been altered per EMS. This is unclear how long this has been going on Patient does ramble on about different things without making any clear complaint. Patient states of swelling in her legs is chronic. Denies any medications. Information is very limited. - Related Data Home Medications Medication Instructions Recorded Confirmed Bumetanide [BUMEX] 1 mg PO DAILY 10/02/14 01/03/20 Cholecalciferol [Vitamin D3 (25 2,000 unit PO TID 10/02/14 01/03/20 Mcg = 1000 Iu)] Fluticasone Propionate [Flonase 2 spray EA NOSTRIL BID PRN 10/02/14 01/03/20 Allergy Relief] Pantoprazole Sodium 40 mg PO AC-BRKFST 10/02/14 01/03/20 cycloSPORINE [Restasis] 1 drop BOTH EYES BID PRN 10/02/14 01/03/20 DULoxetine HCL [Cymbalta] 60 mg PO HS 04/16/15 01/03/20 traZODone HCL [Desyrel] 50 mg PO HS 06/06/15 01/03/20 Diclofenac Sodium [Voltaren Gel] 2 gram TOPICAL DAILY PRN 12/16/16 01/03/20 Gabapentin [Neurontin] 100 mg PO AC-BID@1200,1800 12/16/16 01/03/20 Levothyroxine Sodium [Synthroid] 137 mcg PO AC-BRKFST 12/16/16 01/03/20 Loteprednol Etabonate [Lotemax] 1 drop BOTH EYES DAILY 04/13/17 01/03/20 SILVER sulfADIAZINE Cream 1 applic TOPICAL DAILY PRN 07/04/17 01/03/20 [Silvadene 1% Cream] doxercalciferoL [Hectorol] 0.5 mcg PO MOTUWETHFR@2100 07/04/17 01/03/20 Apixaban [Eliquis] 5 mg PO BID-W/MEALS 09/27/18 01/03/20 Optive Eye Drop 1 drop BOTH EYES DAILY PRN 09/27/18 01/03/20 Pravastatin Sodium [Pravachol] 20 mg PO AC-SUPPER 09/27/18 01/03/20 Acetaminophen [Tylenol] 500 mg PO Q4H PRN 04/03/19 01/03/20 Cinnamon 250 Mg 250 mg PO AC-BID@0700,1200 05/01/19 01/03/20 Milk Thistle 200 Mg 200 mg PO BID 05/01/19 01/03/20 carvediloL [Coreg] 6.25 mg PO BID-W/MEALS 05/01/19 01/03/20 Hydrocodone/Acetaminophen [[place] 1 tab PO TID PRN 08/06/19 01/03/20 10-325] Insulin Detemir [Levemir Flextouch] 1 - 12 units SQ HS 08/06/19 01/03/20 Previous Rx's Medication Instructions Recorded Insulin Aspart [NovoLOG Flexpen] See Protocol SQ AC-TID #0 06/11/19 amLODIPine [Norvasc] 5 mg PO BID #60 tab 06/11/19 Allergies Allergy/AdvReac Type Severity Reaction Status Date / Time adhesive tape Allergy Rash/Hives Verified 01/03/20 11:11 triamcinolone Allergy Unknown Verified 01/03/20 11:11 venom-honey bee Allergy Swelling Verified 01/03/20 11:11 caffeine AdvReac Nausea & Verified 01/03/20 11:11 Vomiting & Diarrhea hydrocodone bitartrate AdvReac Itching Verified 01/03/20 11:11 [From Lorcet (hydrocodone)] Penicillins AdvReac Nausea & Verified 01/03/20 11:11 Vomiting & Diarrhea tramadol HCl [From Ultram] AdvReac Itching Verified 01/03/20 11:11 Review of Systems ROS Statement: Those systems with pertinent positive or pertinent negative responses have been documented in the HPI. ROS Other: All systems not noted in ROS Statement are negative. Past Medical History Past Medical History: Atrial Fibrillation, Chest Pain / Angina, Diabetes Mellitus, Eye Disorder, Fibromyalgia, GERD/Reflux, Hyperlipidemia, Hypertension, Osteoarthritis (OA), Pneumonia, Renal Disease, Rheumatoid Arthritis (RA), Thyroid Disorder Additional Past Medical History / Comment(s): Mild glaucoma stabe. BURSITIS, hx falls, past chronic sacral wound, occ Vertigo, anemia, Constipation History of Any Multi-Drug Resistant Organisms: None Reported Past Surgical History: Adenoidectomy, Cholecystectomy, Hysterectomy, Joint Replacement, Orthopedic Surgery, Tonsillectomy Additional Past Surgical History / Comment(s): 3 RIGHT KNEE SURGERIES AND 2 LEFT, TOTAL KNEE REPLACEMENTS SURGERIES. D&C'S. Lap Ignacio-en-Y gastric bypass [place] [address] Zambrano , total hysterectomy for fibroid tumor, tubal ligation Past Anesthesia/Blood Transfusion Reactions: Motion Sickness Additional Past Anesthesia/Blood Transfusion Reaction / Comment(s): Pt received blood in 2012 without reaction. Smoking Status: Never smoker - Past Family History Mother Family Medical History: Coronary Artery Disease (CAD) Additional Family Medical History / Comment(s): age 90 of heart failure. Had hx of Parkinsons and Narcolepsy Father Family Medical History: Coronary Artery Disease (CAD) Additional Family Medical History / Comment(s): age 73 of massive heart attack General Exam Limitations: altered mental status General appearance: alert, in no apparent distress Head exam: Present: atraumatic, normocephalic, normal inspection Eye exam: Present: normal appearance, PERRL, EOMI. Absent: scleral icterus, conjunctival injection, periorbital swelling ENT exam: Present: normal exam, normal oropharynx, mucous membranes moist Neck exam: Present: normal inspection, full ROM. Absent: tenderness, meningismus, lymphadenopathy Respiratory exam: Present: normal lung sounds bilaterally. Absent: respiratory distress, wheezes, rales, rhonchi, stridor Cardiovascular Exam: Present: regular rate, normal rhythm, normal heart sounds. Absent: systolic murmur, diastolic murmur, rubs, gallop, clicks GI/Abdominal exam: Present: soft, tenderness, normal bowel sounds. Absent: distended, guarding, rebound, rigid Extremities exam: Present: pedal edema (2+ with mild erythema distal portion) Neurological exam: Present: alert, CN II-XII intact, reflexes normal. Absent: oriented X3, motor sensory deficit Expanded Patient oriented to: Present: person, place. Absent: time Speech: Present: fluid speech Cranial nerves: EOM's Intact: Normal, Gag Reflex: Normal, Facial Sensation: Normal Cerebellar function: Finger to Nose: Normal Sensory exam: Upper Extremity Light Touch: Normal Motor strength exam: RUE: 5, LUE: 5, RLE: 5, LLE: 5 Eye Response: (4) open spontaneously Motor Response: (6) obeys commands Verbal Response: (5) oriented Ivy Total: 15 (NIH 1) Skin exam: Present: warm, dry, intact, normal color. Absent: rash Course Vital Signs 12/31/20 12/31/20 12/31/20 06:06 07:18 09:41 Temperature 98.2 F Pulse Rate 72 75 76 Respiratory 16 16 14 Rate Blood Pressure 172/81 176/87 143/77 O2 Sat by Pulse 99 96 97 Oximetry Medical Decision Making - Medical Decision Making Patient CT shows evidence of acute infarct. Patient has intermittent confusion. Patient be admitted for further evaluation and neurology evaluation. phlegm but does not reveal any acute changes. - Lab Data Result diagrams: 12/31/20 07:06 12/31/20 07:06 Lab Results 12/31/20 12/31/20 12/31/20 Range/Units 07:06 07:06 07:06 WBC 6.6 (3.8-10.6) k/uL RBC 3.71 L (3.80-5.40) m/uL Hgb 11.9 (11.4-16.0) gm/dL Hct 36.7 (34.0-46.0) % MCV 98.8 (80.0-100.0) fL MCH 32.0 (25.0-35.0) pg MCHC 32.4 (31.0-37.0) g/dL RDW 13.4 (11.5-15.5) % Plt Count 250 (150-450) k/uL MPV 8.5 Neutrophils % 66 % Lymphocytes % 19 % Monocytes % 8 % Eosinophils % 3 % Basophils % 1 % Neutrophils # 4.4 (1.3-7.7) k/uL Lymphocytes # 1.3 (1.0-4.8) k/uL Monocytes # 0.6 (0-1.0) k/uL Eosinophils # 0.2 (0-0.7) k/uL Basophils # 0.1 (0-0.2) k/uL PT 10.4 (9.0-12.0) sec INR 1.0 (<1.2) APTT 24.2 (22.0-30.0) sec Sodium 138 (137-145) mmol/L Potassium 4.3 (3.5-5.1) mmol/L Chloride 101 (98-107) mmol/L Carbon Dioxide 27 (22-30) mmol/L Anion Gap 10 mmol/L BUN 33 H (7-17) mg/dL Creatinine 0.77 (0.52-1.04) mg/dL Est GFR (CKD-EPI)AfAm 88 (>60 ml/min/1.73 sqM) Est GFR (CKD-EPI)NonAf 76 (>60 ml/min/1.73 sqM) Glucose 245 H (74-99) mg/dL Plasma Lactic Acid Chucky (0.7-2.0) mmol/L Calcium 10.6 H (8.4-10.2) mg/dL Total Bilirubin 0.3 (0.2-1.3) mg/dL AST 51 H (14-36) U/L ALT 38 H (4-34) U/L Alkaline Phosphatase 111 (38-126) U/L Ammonia (<30) umol/L Troponin I (0.000-0.034) ng/mL NT-Pro-B Natriuret Pep pg/mL Total Protein 7.4 (6.3-8.2) g/dL Albumin 4.5 (3.5-5.0) g/dL Urine Color Urine Appearance (Clear) Urine pH (5.0-8.0) Ur Specific [place] (1.001-1.035) Urine Protein (Negative) Urine Glucose (UA) (Negative) Urine Ketones (Negative) Urine Blood (Negative) Urine Nitrite (Negative) Urine Bilirubin (Negative) Urine Urobilinogen (<2.0) mg/dL Ur Leukocyte Esterase (Negative) Urine WBC (0-5) /hpf Ur Squamous Epith Cells (0-4) /hpf Urine Mucus (None) /hpf Urine Opiates Screen (NotDetected) Ur Oxycodone Screen (NotDetected) Urine Methadone Screen (NotDetected) Ur Propoxyphene Screen (NotDetected) Ur Barbiturates Screen (NotDetected) U Tricyclic Antidepress (NotDetected) Ur Phencyclidine Scrn (NotDetected) Ur Amphetamines Screen (NotDetected) U Methamphetamines Scrn (NotDetected) U Benzodiazepines Scrn (NotDetected) Urine Cocaine Screen (NotDetected) U Marijuana (THC) Screen (NotDetected) 12/31/20 12/31/20 12/31/20 Range/Units 07:06 07:06 07:22 WBC (3.8-10.6) k/uL RBC (3.80-5.40) m/uL Hgb (11.4-16.0) gm/dL Hct (34.0-46.0) % MCV (80.0-100.0) fL MCH (25.0-35.0) pg MCHC (31.0-37.0) g/dL RDW (11.5-15.5) % Plt Count (150-450) k/uL MPV Neutrophils % % Lymphocytes % % Monocytes % % Eosinophils % % Basophils % % Neutrophils # (1.3-7.7) k/uL Lymphocytes # (1.0-4.8) k/uL Monocytes # (0-1.0) k/uL Eosinophils # (0-0.7) k/uL Basophils # (0-0.2) k/uL PT (9.0-12.0) sec INR (<1.2) APTT (22.0-30.0) sec Sodium (137-145) mmol/L Potassium (3.5-5.1) mmol/L Chloride (98-107) mmol/L Carbon Dioxide (22-30) mmol/L Anion Gap mmol/L BUN (7-17) mg/dL Creatinine (0.52-1.04) mg/dL Est GFR (CKD-EPI)AfAm (>60 ml/min/1.73 sqM) Est GFR (CKD-EPI)NonAf (>60 ml/min/1.73 sqM) Glucose (74-99) mg/dL Plasma Lactic Acid Chucky 1.8 (0.7-2.0) mmol/L Calcium (8.4-10.2) mg/dL Total Bilirubin (0.2-1.3) mg/dL AST (14-36) U/L ALT (4-34) U/L Alkaline Phosphatase (38-126) U/L Ammonia 10 (<30) umol/L Troponin I <0.012 (0.000-0.034) ng/mL NT-Pro-B Natriuret Pep 362 pg/mL Total Protein (6.3-8.2) g/dL Albumin (3.5-5.0) g/dL Urine Color Urine Appearance (Clear) Urine pH (5.0-8.0) Ur Specific [place] (1.001-1.035) Urine Protein (Negative) Urine Glucose (UA) (Negative) Urine Ketones (Negative) Urine Blood (Negative) Urine Nitrite (Negative) Urine Bilirubin (Negative) Urine Urobilinogen (<2.0) mg/dL Ur Leukocyte Esterase (Negative) Urine WBC (0-5) /hpf Ur Squamous Epith Cells (0-4) /hpf Urine Mucus (None) /hpf Urine Opiates Screen (NotDetected) Ur Oxycodone Screen (NotDetected) Urine Methadone Screen (NotDetected) Ur Propoxyphene Screen (NotDetected) Ur Barbiturates Screen (NotDetected) U Tricyclic Antidepress (NotDetected) Ur Phencyclidine Scrn (NotDetected) Ur Amphetamines Screen (NotDetected) U Methamphetamines Scrn (NotDetected) U Benzodiazepines Scrn (NotDetected) Urine Cocaine Screen (NotDetected) U Marijuana (THC) Screen (NotDetected) 12/31/20 Range/Units 08:03 WBC (3.8-10.6) k/uL RBC (3.80-5.40) m/uL Hgb (11.4-16.0) gm/dL Hct (34.0-46.0) % MCV (80.0-100.0) fL MCH (25.0-35.0) pg MCHC (31.0-37.0) g/dL RDW (11.5-15.5) % Plt Count (150-450) k/uL MPV Neutrophils % % Lymphocytes % % Monocytes % % Eosinophils % % Basophils % % Neutrophils # (1.3-7.7) k/uL Lymphocytes # (1.0-4.8) k/uL Monocytes # (0-1.0) k/uL Eosinophils # (0-0.7) k/uL Basophils # (0-0.2) k/uL PT (9.0-12.0) sec INR (<1.2) APTT (22.0-30.0) sec Sodium (137-145) mmol/L Potassium (3.5-5.1) mmol/L Chloride (98-107) mmol/L Carbon Dioxide (22-30) mmol/L Anion Gap mmol/L BUN (7-17) mg/dL Creatinine (0.52-1.04) mg/dL Est GFR (CKD-EPI)AfAm (>60 ml/min/1.73 sqM) Est GFR (CKD-EPI)NonAf (>60 ml/min/1.73 sqM) Glucose (74-99) mg/dL Plasma Lactic Acid Chucky (0.7-2.0) mmol/L Calcium (8.4-10.2) mg/dL Total Bilirubin (0.2-1.3) mg/dL AST (14-36) U/L ALT (4-34) U/L Alkaline Phosphatase (38-126) U/L Ammonia (<30) umol/L Troponin I (0.000-0.034) ng/mL NT-Pro-B Natriuret Pep pg/mL Total Protein (6.3-8.2) g/dL Albumin (3.5-5.0) g/dL Urine Color Light Yellow Urine Appearance Clear (Clear) Urine pH 7.0 (5.0-8.0) Ur Specific [place] 1.009 (1.001-1.035) Urine Protein Trace H (Negative) Urine Glucose (UA) 2+ H (Negative) Urine Ketones Negative (Negative) Urine Blood Negative (Negative) Urine Nitrite Negative (Negative) Urine Bilirubin Negative (Negative) Urine Urobilinogen <2.0 (<2.0) mg/dL Ur Leukocyte Esterase Small H (Negative) Urine WBC 9 H (0-5) /hpf Ur Squamous Epith Cells <1 (0-4) /hpf Urine Mucus Rare H (None) /hpf Urine Opiates Screen Detected H (NotDetected) Ur Oxycodone Screen Not Detected (NotDetected) Urine Methadone Screen Not Detected (NotDetected) Ur Propoxyphene Screen Not Detected (NotDetected) Ur Barbiturates Screen Not Detected (NotDetected) U Tricyclic Antidepress Not Detected (NotDetected) Ur Phencyclidine Scrn Not Detected (NotDetected) Ur Amphetamines Screen Not Detected (NotDetected) U Methamphetamines Scrn Not Detected (NotDetected) U Benzodiazepines Scrn Not Detected (NotDetected) Urine Cocaine Screen Not Detected (NotDetected) U Marijuana (THC) Screen Not Detected (NotDetected) Disposition Clinical Impression: CVA (cerebral vascular accident) Disposition: ADMITTED IP TO THIS HOSP Condition: Fair Referrals: Taina Vergara MD [Primary Care Provider] - 1-2 days
--- NOTE | 2020-12-31 07:14 | XR ---
EXAMINATION TYPE: XR chest 2V DATE OF EXAM: 12/31/2020 COMPARISON: 07/11/2019 INDICATION: Altered mental status TECHNIQUE: Single frontal view of the chest is obtained. FINDINGS: The heart size is normal. The pulmonary vasculature is prominent. Mild diffuse increased lung markings are present and some linear opacity at the left base, present pr eviously, could represent some scarring. IMPRESSION: 1. Correlate for mild volume overload.
--- NOTE | 2020-12-31 07:16 | CT ---
EXAMINATION TYPE: CT brain wo con DATE OF EXAM: 12/31/2020 COMPARISON: 06/08/2019 INDICATION: Altered mental status DLP: 1088.4 mGycm, Automated exposure control for dose reduction was used. CONTRAST: None CT of the brain is performed utilizing 3 mm thick sections through the posterior fossa and 3 mm thick sections through the remaining calvarium. Study is performed within 24 hours of arrival to the hosp [facility]. No abnormal hyperdensity is present to suggest an acute intracranial hemorrhage. No mass lesion is evident. There is periventricular white matter hypodensity, likely on the basis of chronic white matter ischem ic change. There is some hypodensity within the right basal ganglion. Consider lacunar infarct. This is an inter ana finding. Ventricles and sulci are appropriate for the patient age. Paranasal sinuses and mastoid air cells within the [id number] are clear. IMPRESSIONS: 1. Clinical consideration for acute right basal ganglion lacunar infarct. This is a new finding in comparison 2. Chronic appearing. Ventricular white matter ischemic type changes present previously.
[2020-12-31 07:34] LABS: Basophils # (A) 0.1 k/uL (0-0.2); Basophils % (A) 1 %; Eosinophils # (A) 0.2 k/uL (0-0.7); Eosinophils % (A) 3 %; HCT 36.7 % (34.0-46.0); HGB 11.9 gm/dL (11.4-16.0); Lymphocytes # (A) 1.3 k/uL (1.0-4.8); Lymphocytes % (A) 19 %; MCHC 32.4 g/dL (31.0-37.0); MCV 98.8 fL (80.0-100.0); Mean Platelet Volume 8.5; Monocytes # (A) 0.6 k/uL (0-1.0); Monocytes % (A) 8 %; Neutrophils # (A) 4.4 k/uL (1.3-7.7); Neutrophils % (A) 66 %; Platelet Count 250 k/uL (150-450); RBC 3.71 m/uL (3.80-5.40); RDW 13.4 % (11.5-15.5); WBC 6.6 k/uL (3.8-10.6)
[2020-12-31 07:50] LABS: Partial Thromboplastin Time 24.2 sec (22.0-30.0); Prothrombin Time 10.4 sec (9.0-12.0)
[2020-12-31 07:52] LABS: Lactic Acid, Venous 1.8 mmol/L (0.7-2.0)
[2020-12-31 07:55] LABS: Albumin 4.5 g/dL (3.5-5.0); Calcium 10.6 mg/dL (8.4-10.2); Potassium 4.3 mmol/L (3.5-5.1); Total Bilirubin 0.3 mg/dL (0.2-1.3); Total Protein 7.4 g/dL (6.3-8.2)
[2020-12-31 09:27] LABS: Appearance,Urine Clear (Clear); Bilirubin,Urine Negative (Negative); Blood,Urine Negative (Negative); Color,Urine Light Yellow; Glucose,Urine (UA) 2+ (Negative); Ketones,Urine Negative (Negative); Leukocyte Esterase,Urine Small (Negative); Mucus,Urine Rare /hpf; Nitrite,Urine Negative (Negative); Protein,Urine Trace (Negative); Specific Gravity,Urine 1.009 (1.001-1.035); Squamous Epithelial Cell,Urine <1 /hpf (0-4); Urobilinogen,Urine <2.0 mg/dL (<2.0); WBC,Urine 9 /hpf (0-5)
[2020-12-31 09:29] LABS: Amphetamine Screen,Urine Not Detected (NotDetected); Barbiturate Screen,Urine Not Detected (NotDetected); Benzodiazepines Screen,Urine Not Detected (NotDetected); Cocaine Screen,Urine Not Detected (NotDetected); Methadone Screen, Urine Not Detected (NotDetected); Opiate Screen,Urine Detected (NotDetected); Oxycodone Screen, Urine Not Detected (NotDetected); Phencyclidine Screen,Urine Not Detected (NotDetected); Tricyclic Antidepressant,Urine Not Detected (NotDetected); Urn Cannabinoid Scrn Not Detected (NotDetected)
[2020-12-31] MEDS ORDERED: ASPIRIN 325 MG TAB PO STA (09:48)
[2020-12-31] MEDS ORDERED: ACETAMINOPHEN TAB 500 MG TAB PO PRN (12:42)
[2020-12-31] MEDS ORDERED: HYDROcodone/APAP 5-325MG 1 EACH TAB PO PRN (12:42)
--- NOTE | 2020-12-31 13:22 | P.HPIM ---
History of Present Illness H&P Date: 12/31/20 Chief Complaint: Altered mental status This is a 75-year-old female patient of Dr. Bartholomew. Patient presented to the ER with complaints of confusion. Patient reports that she has not felt like herself over the past few days. Patient denies any other neurological symptoms. Patient does appear to be a poor historian and unable to tell exactly when she felt the symptoms started. Patient does have past medical history of atrial fibrillation, chest pain, eye disorder, carbamazepine GERD, hyperlipidemia, osteoarthritis, renal disease, rheumatoid arthritis, hypothyroidism and Ignacio-en-Y gastric bypass surgery in 2011. Chest x-ray completed showing correlation for mild volume overload. Head CT completed showing clinical consideration for acute right basal ganglionic leukon or infarct this is a new finding in comparison. Chronic appearing ventricular white matter ischemic type changes present previously. EKG showing normal sinus rhythm. Patient noted to have +3 peripheral edema. Patient reports this is chronic for her some erythema noted to bilateral legs. At that time neurology service is consulted. Carotid Doppler and 2-D echo ordered. Repeat labs ordered. Urine culture ordered. Patient denies chest pain or shortness of breath. Patient denies nausea vomiting or diarrhea. Patient denies any urinary burning or frequency Review of Systems Please refer to HPI otherwise unremarkable Past Medical History Past Medical History: Atrial Fibrillation, Chest Pain / Angina, Diabetes Callie litus, Eye Disorder, Fibromyalgia, GERD/Reflux, Hyperlipidemia, Hypertension, Osteoarthritis (OA), Pneumonia, Renal Disease, Rheumatoid Arthritis (RA), Thyroid Disorder Additional Past Medical History / Comment(s): Mild glaucoma stabe. BURSITIS, hx falls, past chronic sacral wound, occ Vertigo, anemia, Constipation History of Any Multi-Drug Resistant Organisms: None Reported Past Surgical History: Adenoidectomy, Cholecystectomy, Hysterectomy, Joint Replacement, Orthopedic Surgery, Tonsillectomy Additional Past Surgical History / Comment(s): 3 RIGHT KNEE SURGERIES AND 2 LEFT, TOTAL KNEE REPLACEMENTS SURGERIES. D&C'S. Lap Ignacio-en-Y gastric bypass [place] [address] Zambrano , total hysterectomy for fibroid tumor, tubal ligation Past Anesthesia/Blood Transfusion Reactions: Motion Sickness Additional Past Anesthesia/Blood Transfusion Reaction / Comment(s): Pt received blood in 2012 without reaction. Past Psychological History: No Psychological Hx Reported Smoking Status: Never smoker - Past Family History Mother Family Medical History: Coronary Artery Disease (CAD) Additional Family Medical History / Comment(s): age 90 of heart failure. Had hx of Parkinsons and Narcolepsy Father Family Medical History: Coronary Artery Disease (CAD) Additional Family Medical History / Comment(s): age 73 of massive heart attack Medications and Allergies Home Medications Medication Instructions Recorded Confirmed Type Bumetanide [BUMEX] 1 mg PO BID@0700,1200 10/02/14 12/31/20 History Pantoprazole Sodium 40 mg PO AC-BRKFST 10/02/14 12/31/20 History DULoxetine HCL [Cymbalta] 60 mg PO HS 04/16/15 12/31/20 History traZODone HCL [Desyrel] 50 mg PO HS 06/06/15 12/31/20 History Gabapentin [Neurontin] 100 mg PO BID@1200,1800 12/16/16 12/31/20 History SILVER sulfADIAZINE Cream 1 applic TOPICAL DAILY PRN 07/04/17 12/31/20 History [Silvadene 1% Cream] Apixaban [Eliquis] 5 mg PO BID-W/MEALS 09/27/18 12/31/20 History Pravastatin Sodium [Pravachol] 20 mg PO W/SUPPER 09/27/18 12/31/20 History Acetaminophen [Tylenol] 500 mg PO Q4H PRN 04/03/19 12/31/20 History Cinnamon 250 Mg 250 mg PO AC-BID@0700,1200 05/01/19 12/31/20 History carvediloL [Coreg] 6.25 mg PO BID-W/MEALS 05/01/19 12/31/20 History Insulin Detemir [Levemir Flextouch] 12 units SQ HS 08/06/19 12/31/20 History Cholecalciferol [Vitamin D3 (25 125 mcg PO HS 12/31/20 12/31/20 History Mcg = 1000 Iu)] Cyanocobalamin (Vitamin B-12) 1,000 mcg PO AC-BRKFST 12/31/20 12/31/20 History [Vitamin B-12] Diclofenac Sodium [Voltaren 2 gm TOPICAL DAILY 12/31/20 12/31/20 History Arthritis Pain 1% Gel] HYDROcodone/APAP 5-325MG [[place] 1 tab PO TID PRN 12/31/20 12/31/20 History 5-325] Insulin Aspart [NovoLOG Flexpen] 12 units SQ AC-TID 12/31/20 12/31/20 History Levothyroxine Sodium [Synthroid] 125 mcg PO AC-BRKFST 12/31/20 12/31/20 History Milk Thistle 250mg 250 mg PO BID-W/MEALS 12/31/20 12/31/20 History Mupirocin 2% Oint [Bactroban 2% 1 applic TOPICAL TID 12/31/20 12/31/20 History Oint] Travoprost [Travatan Z 0.004%] 1 drop BOTH EYES HS 12/31/20 12/31/20 History amLODIPine [Norvasc] 5 mg PO BID-W/MEALS 12/31/20 12/31/20 History hydrALAZINE HCL [Apresoline] 10 mg PO BID-W/MEALS 12/31/20 12/31/20 History Allergies Allergy/AdvReac Type Severity Reaction Status Date / Time adhesive tape Allergy Rash/Hives Verified 12/31/20 10:56 triamcinolone Allergy Unknown Verified 12/31/20 10:56 venom-honey bee Allergy Swelling Verified 12/31/20 10:56 caffeine AdvReac Nausea & Verified 12/31/20 10:56 Vomiting & Diarrhea hydrocodone bitartrate AdvReac Itching Verified 12/31/20 10:56 [From Lorcet (hydrocodone)] Penicillins AdvReac Nausea & Verified 12/31/20 10:56 Vomiting & Diarrhea tramadol HCl [From Ultram] AdvReac Itching Verified 12/31/20 10:56 Physical Exam Vitals: Vital Signs Temp Pulse Resp BP Pulse Ox 12/31/20 11:26 98.0 F 77 16 155/83 95 12/31/20 09:41 76 14 143/77 97 12/31/20 07:18 75 16 176/87 96 12/31/20 06:06 98.2 F 72 16 172/81 99 Intake and Output 12/30/20 12/31/20 12/31/20 22:59 06:59 14:59 Other: Weight 81.647 kg Head normocephalic Neck supple Lungs clear to auscultation bilaterally no wheezing or crackles Heart regular rate and rhythm S1-S2, no rub or gallop Abdomen is soft nontender nondistended positive bowel sounds no hepatosplenomegaly Extremities no edema Neuro alert and orientated to 2. Intermittent episodes of confusion difficulty finding words. Motor strength 5 out of 5 to all extremities. No signs of facial droop Results CBC & Chem 7: 12/31/20 07:06 12/31/20 07:06 Labs: Abnormal Lab Results - Last 24 Hours (Table) 12/31/20 12/31/20 12/31/20 Range/Units 07:06 07:06 08:03 RBC 3.71 L (3.80-5.40) m/uL BUN 33 H (7-17) mg/dL Glucose 245 H (74-99) mg/dL Calcium 10.6 H (8.4-10.2) mg/dL AST 51 H (14-36) U/L ALT 38 H (4-34) U/L Urine Protein Trace H (Negative) Urine Glucose (UA) 2+ H (Negative) Ur Leukocyte Esterase Small H (Negative) Urine WBC 9 H (0-5) /hpf Urine Mucus Rare H (None) /hpf Urine Opiates Screen Detected H (NotDetected) Assessment and Plan Assessment: 1. Mental status changes secondary to acute right lacunar infarct. Neurology services consulted. 2-D echo and carotid Doppler ordered 2. Bilateral lower extremity edema. Patient reports this is chronic for her. Patient is maintained on Bumex 3. History of paroxysmal atrial fibrillation. Patient has been maintained on eliquis 4. History of essential hypertension 5. History of chronic renal disease 6. History of fibromyalgia 7. History of hyperlipidemia. Patient is maintained on statin 8. History of hypothyroidism. DVT prophylaxis eliquis. GI prophylaxis Protonix Neurology services consulted. Carotid and 2-D echo ordered. Repeat labs ordered TSH level ordered Urine Culture ordered Time with Patient: Greater than 30 (Greater than 60% of the total time spent in counseling and coordination of care)
[2020-12-31 16:38] LABS: Glucose,Whole Blood 246 mg/dL (75-99)
--- NOTE | 2020-12-31 17:00 | ECHOF ---
Referral Reason:cva MEASUREMENTS -------- HEIGHT: 165.1 cm WEIGHT: 81.6 kg BP: IVSd: 1.3 cm (0.6 - 1.1) LVIDd: 5.0 cm (3.9 - 5.3) LVPWd: 1.9 cm (0.6 - 1.1) IVSs: 1.7 cm LVIDs: 3.0 cm LVPWs: 1.8 cm LA Diam: 4.7 cm (2.7 - 3.8) Ao Diam: 3.3 cm (2.0 - 3.7) AV Cusp: 1.6 cm (1.5 - 2.6) MV EXCURSION: 15.618 mm (> 18.000) MV EF SLOPE: 49 mm/s (70 - 150) EPSS: 1.0 cm MV E Ruben: 0.93 m/s MV DecT: 204 ms MV A Ruben: 0.71 m/s MV E/A Ratio: 1.31 RAP: 5.00 mmHg RVSP: 51.73 mmHg FINDINGS -------- Sinus rhythm. This was a technically good study. LV size, wall thickness and systolic function are normal, with an EF greater than 55%. The left mag tricular size is normal. The right ventricle is normal in size. LA is moderately dilated 34-39 ml/m2 The right atrial size is normal. There is mild aortic valve sclerosis. There is no evidence of aortic regurgitation. Bicuspid aort ic valve Mild mitral regurgitation is present. Mild tricuspid regurgitation present. There is moderate pulmonary hypertension. The right ventric ular systolic pressure, as measured by Doppler, is 51.73mmHg. Trace/mild (physiologic) pulmonic regurgitation. The aortic root size is normal. There is a trivial pericardial effusion present. CONCLUSIONS -------- 1. LV size, wall thickness and systolic function are normal, with an EF greater than 55%. 2. The left ventricular size is normal. 3. The right ventricle is normal in size. 4. LA is moderately dilated 34-39 ml/m2 5. The right atrial size is normal. 6. There is mild aortic valve sclerosis. 7. Bicuspid aortic valve 8. Mild mitral regurgitation is present. 9. Mild tricuspid regurgitation present. 10. There is moderate pulmonary hypertension. 11. The right ventricular systolic pressure, as measured by Doppler, is 51.73mmHg. 12. Trace/mild (physiologic) pulmonic regurgitation. 13. The aortic root size is normal. 14. There is a trivial pericardial effusion present. [employer]: Tana Arellano RDCS
--- NOTE | 2020-12-31 17:04 | P.CNNES ---
History of Present Illness Consult date: 12/31/20 Requesting physician: Andrea Adame Reason for Consult: CVA History of Present Illness: Patient is a 75-year-old female came to the hospital because she was not feeling well for 1 week. Yesterday she started having trouble breathing. Patient denies any focal numbness tingling, weakness, slurred speech problem with the vision or facial droop. She gets headache "now and then", but does not have any headache now. No trauma. Denies any chest pain, nausea vomiting. As per EMS flow sheet, when they arrived patient was in a seated position accompanied by family in some distress and she makes eye contact upon greeting. She was alert 3 with chief complaints of altered mental status. The patient displayed some unusual behavior the previous evening per family, with some continued thought patterns irregularities this morning. Her blood glucose was 326 mg/dL blood pressure 179/105, pulse rate 76, respirations 16, saturation 100. Patient has history of diabetes for 10 years, hypertension. She was light smok er long time ago. She drinks alcohol very little. Patient states that she walks with a cane outside her home, but inside does not use any assistive device. Does not take any aspirin. CT head revealed clinical consideration for acute right basal ganglia on lacunar infarct. This is new finding in comparison to the previous computed tomography scan from 06/08/2019. On my review, it appears chronic rather than acute. There is periventricular white matter ischemic type changes. EKG shows anterior septal infarct, age indeterminate. Chest x-ray showed correlate for mild volume overload. Blood test shows WBC 6.6, hemoglobin 11.9, platelets 250. PT/PTT normal. Electrolytes normal, renal functions normal. AST 51, ALT 38. Troponin negative. TSH normal, UA small leukocyte Estrace. Urine drug screen positive for opiate. Patient's recent vitamin B12 1087 on 10/06/2020. Vitamin B1 62 which is normal. Vitamin D 46. RBC folate normal. Methylmalonic acid was mildly elevated 0.59 on 03/13/2019 Review of Systems As mentioned above in detail. Patient states she has history of strep throat infection numerous time in his childhood, that she was taken out of kindergarten. Denies any fever or chills. No abdominal pain. No chest pain. She has trouble breathing. Past Medical History Past Medical History: Atrial Fibrillation, Chest Pain / Angina, Diabetes Mellitus, Eye Disorder, Fibromyalgia, GERD/Reflux, Hyperlipidemia, Hypertension, Osteoarthritis (OA), Pneumonia, Renal Disease, Rheumatoid Arthritis (RA), T hyroid Disorder Additional Past Medical History / Comment(s): Mild glaucoma stabe. BURSITIS, hx falls, past chronic sacral wound, occ Vertigo, anemia, Constipation History of Any Multi-Drug Resistant Organisms: None Reported Past Surgical History: Adenoidectomy, Cholecystectomy, Hysterectomy, Joint Replacement, Orthopedic Surgery, Tonsillectomy Additional Past Surgical History / Comment(s): 3 RIGHT KNEE SURGERIES AND 2 LEFT, TOTAL KNEE REPLACEMENTS SURGERIES. D&C'S. Lap Ignacio-en-Y gastric [place] [address] Zambrano , total hysterectomy for fibroid tumor, tubal ligation Past Anesthesia/Blood Transfusion Reactions: Motion Sickness Additional Past Anesthesia/Blood Transfusion Reaction / Comment(s): Pt received blood in 2012 without reaction. Past Psychological History: No Psychological Hx Reported Smoking Status: Never smoker - Past Family History Mother Family Medical History: Coronary Artery Disease (CAD) Additional Family Medical History / Comment(s): age 90 of heart failure. Had hx of Parkinsons and Narcolepsy Father Family Medical History: Coronary Artery Disease (CAD) Additional Family Medical History / Comment(s): age 73 of massive heart attack Medications and Allergies Home Medications Medication Instructions Recorded Confirmed Type Bumetanide [BUMEX] 1 mg PO BID@0700,1200 10/02/14 12/31/20 History Pantoprazole Sodium 40 mg PO AC-BRKFST 10/02/14 12/31/20 History DULoxetine HCL [Cymbalta] 60 mg PO HS 04/16/15 12/31/20 History traZODone HCL [Desyrel] 50 mg PO HS 06/06/15 12/31/20 History Gabapentin [Neurontin] 100 mg PO BID@1200,1800 12/16/16 12/31/20 History SILVER sulfADIAZINE Cream 1 applic TOPICAL DAILY PRN 07/04/17 12/31/20 History [Silvadene 1% Cream] Apixaban [Eliquis] 5 mg PO BID-W/MEALS 09/27/18 12/31/20 History Pravastatin Sodium [Pravachol] 20 mg PO W/SUPPER 09/27/18 12/31/20 History Acetaminophen [Tylenol] 500 mg PO Q4H PRN 04/03/19 12/31/20 History Cinnamon 250 Mg 250 mg PO AC-BID@0700,1200 05/01/19 12/31/20 History carvediloL [Coreg] 6.25 mg PO BID-W/MEALS 05/01/19 12/31/20 History Insulin Detemir [Levemir Flextouch] 12 units SQ HS 08/06/19 12/31/20 History Cholecalciferol [Vitamin D3 (25 125 mcg PO HS 12/31/20 12/31/20 History Mcg = 1000 Iu)] Cyanocobalamin (Vitamin B-12) 1,000 mcg PO AC-BRKFST 12/31/20 12/31/20 History [Vitamin B-12] Diclofenac Sodium [Voltaren 2 gm TOPICAL DAILY 12/31/20 12/31/20 History Arthritis Pain 1% Gel] HYDROcodone/APAP 5-325MG [[place] 1 tab PO TID PRN 12/31/20 12/31/20 History 5-325] Insulin Aspart [NovoLOG Flexpen] 12 units SQ AC-TID 12/31/20 12/31/20 History Levothyroxine Sodium [Synthroid] 125 mcg PO AC-BRKFST 12/31/20 12/31/20 History Milk Thistle 250mg 250 mg PO BID-W/MEALS 12/31/20 12/31/20 History Mupirocin 2% Oint [Bactroban 2% 1 applic TOPICAL TID 12/31/20 12/31/20 History Oint] Travoprost [Travatan Z 0.004%] 1 drop BOTH EYES HS 12/31/20 12/31/20 History amLODIPine [Norvasc] 5 mg PO BID-W/MEALS 12/31/20 12/31/20 History hydrALAZINE HCL [Apresoline] 10 mg PO BID-W/MEALS 12/31/20 12/31/20 History Allergies Allergy/AdvReac Type Severity Reaction Status Date / Time adhesive tape Allergy Rash/Hives Verified 12/31/20 10:56 triamcinolone Allergy Unknown Verified 12/31/20 10:56 venom-honey bee Allergy Swelling Verified 12/31/20 10:56 caffeine AdvReac Nausea & Verified 12/31/20 10:56 Vomiting & Diarrhea hydrocodone bitartrate AdvReac Itching Verified 12/31/20 10:56 [From Lorcet (hydrocodone)] Penicillins AdvReac Nausea & Verified 12/31/20 10:56 Vomiting & Diarrhea tramadol HCl [From Ultram] AdvReac Itching Verified 12/31/20 10:56 Physical Examination - Vital Signs Vital Signs: Vital Signs Temp Pulse Pulse Resp BP BP Pulse Ox 12/31/20 13:15 98.2 F 71 20 156/77 98 12/31/20 11:26 98.0 F 77 16 155/83 95 12/31/20 09:41 76 14 143/77 97 12/31/20 07:18 75 16 176/87 96 12/31/20 06:06 98.2 F 72 16 172/81 99 Intake and Output 12/31/20 12/31/20 12/31/20 06:59 14:59 22:59 Other: Weight 81.647 kg 81.647 kg Patient is an elderly female, who is slightly edgy, gets upset easily. Patient is alert awake oriented to time place and person. Speech and language functions are normal. Attention, concentration and fund of knowledge is adequate. On cranial examination, pupils are equal, round and reacting to light, visual guo are full on confrontation, extraocular muscles are intact with no nystagmus. Face is symmetric, tongue protrudes to the midline. Palatal elevation and sensation normal, hearing and shoulder shrug normal, facial sensation normal. Shoulder shrug normal. On muscle strength testing, there is no pronator drift and the strength is no rmal in arms and legs distally and proximally. Deep tendon reflexes are 1 in the upper and lower limbs and plantars downgoing bilaterally. Sensory to touch is equal with no neglect. Cerebellar function showed no ataxia for [id number] testing. No dysdiadochokinesia. Tone and bulk of muscles normal. Gait not checked. On general examination, there is no carotid bruit or murmur, S1-S2 audible. Abdomen is soft nontender. Chest is clear. Patient has peripheral edema. Patient is some redness of the skin of the monae bilaterally. Results - Laboratory Findings CBC and BMP: 12/31/20 07:06 12/31/20 07:06 Abnormal Lab Findings: Abnormal Labs 12/31/20 12/31/2021 07:06 07:06 08:03 RBC 3.71 L BUN 33 H Glucose 245 H Calcium 10.6 H AST 51 H ALT 38 H Urine Protein Trace H Urine Glucose (UA) 2+ H Ur Leukocyte Esterase Small H Urine WBC 9 H Urine Mucus Rare H Urine Opiates Screen Detected H Assessment and Plan Assessment: * Abnormal computed tomography scan of head, revealed evidence of a possible lacunar CVA in the right basal ganglia. This is new as compared to the previ ous computed tomography scan from 06/08/2019, but appears chronic, not acute at this time. * Hypertension * Diabetes * Hyperlipidemia * Atrial fibrillation on anticoagulation. * History of B12 deficiency, on B12. Plan: * Agree with checking carotid Doppler. * 2-D echo pending. * Continue Apixaban 5 mg twice a day. * Patient was not on any antiplatelet medication at home. Consider adding aspirin 81 mg for stroke prevention related to small vessel disease. * Aggressive control of all of stroke risk factors * Hemoglobin A1c 6.7 on 10/21/2020. * Lipid panel with cholesterol 184, LDL 88, HDL 82 and triglycerides 70. Continue Pravachol 20 mg. * Telemetry monitoring * We will follow.
[2020-12-31] MEDS: INSULIN ASPART (NovoLOG) 100 UNIT/ML VIAL SQ SCH (17:28)
[2020-12-31] MEDS: PRAVASTATIN SODIUM 20 MG TAB PO SCH (17:29)
[2020-12-31] MEDS: hydrALAZINE HCL 10 MG TAB PO SCH (17:29)
[2020-12-31] MEDS: APIXABAN 5 MG TAB PO SCH (17:29)
[2020-12-31] MEDS: GABAPENTIN 100 MG CAP PO SCH (17:29)
[2020-12-31] MEDS: carvediloL 6.25 MG TAB PO SCH (17:29)
[2020-12-31] MEDS: amLODIPine 5 MG TAB PO SCH (17:30)
[2020-12-31] MEDS ORDERED: MILK THISTLE PO SCH (17:30)
--- NOTE | 2020-12-31 19:17 | US ---
EXAMINATION TYPE: US carotid duplex BILAT DATE OF EXAM: 12/31/2020 COMPARISON: NONE CLINICAL HISTORY: CVA. TIA EXAM MEASUREMENTS: RIGHT: Peak Systolic Velocity (PSV) cm/sec ----- Right CCA: 76.9 ----- Right ICA: 66.7 ----- Right ECA: 62.4 ICA/CCA ratio: 0.9 RIGHT: End Diastole cm/sec ----- Right CCA: 11.5 ----- Right ICA: 15.9 ----- Right ECA: 0 LEFT: Peak Systolic Velocity (PSV) cm/sec ----- Left CCA: 66.7 ----- Left ICA: 76.9 ----- Left ECA: 58.0 ICA/CCA ratio: 1.2 LEFT: End Diastole cm/sec ----- Left CCA: 14.4 ----- Left ICA: 17.3 ----- Left ECA: 8.6 VERTEBRALS (direction of flow): Right Vertebral: Antegrade Left Vertebral: Antegrade Rhythm: Normal No significant stenosis seen IMPRESSION: There is antegrade flow in the vertebral arteries. The images and measurements suggest less than 25% stenosis in both internal carotid arteries. NASCET criteria was used in interpretation of this exam? Criteria for Assigning % of Stenosis / Diameter reduction (Estimation based on the indirect measurements of the internal carotid artery velocities (ICA PSV). 1. Normal (no stenosis)=ICA PSV < 125 cm/s: ratio < 2.0: ICA EDV<40 cm/s. 2. Less than 50% stenosis=ICA PSV < 125 cm/s: ratio < 2.0: ICA EDV<40 cm/s. 3. 50 to 69% stenosis=ICA PSV of 125 to 230 cm/s: ration 2.0 ? 4.0: ICA EDV 40-100 cm/s. 4. Greater than 70% stenosis to near occlusion= ICA PSV > 230 cm/s: ratio > 4.0: ICA EDV > 100 cm/s. 5. Near occlusion= ICA PSV velocities may be low or undetectable: variable ratio and ICA EDV. 6. Total occlusion=unable to detect flow.
[2020-12-31 19:53] LABS: Glucose,Whole Blood 106 mg/dL (75-99)
[2020-12-31] MEDS: DULoxetine HCL 60 MG CAPSULE.DR PO SCH (20:30)
[2020-12-31] MEDS: CHOLECALCIFEROL 25 MCG (1000 IU) TABLET PO SCH (20:30)
[2020-12-31] MEDS: INSULIN DETEMIR (LEVEMIR) 100 UNIT/ML SYR SQ SCH (20:30)
[2020-12-31] MEDS: traZODone HCL 50 MG TAB PO SCH (20:30)
[2020-12-31] MEDS: LATANOPROST 0.005% OPHTH DROPS 2.5 ML BTL BOTH EYES SCH (20:30)
[2021-01-01 06:08] LABS: Glucose,Whole Blood 84 mg/dL (75-99)
[2021-01-01] MEDS: APIXABAN 5 MG TAB PO SCH ×2 (06:31→17:07)
[2021-01-01] MEDS: amLODIPine 5 MG TAB PO SCH ×2 (06:31→17:07)
[2021-01-01] MEDS: BUMETANIDE 1 MG TAB PO SCH ×2 (06:31→13:06)
[2021-01-01] MEDS: hydrALAZINE HCL 10 MG TAB PO SCH ×2 (06:32→17:07)
[2021-01-01] MEDS: LEVOTHYROXINE 125 MCG TAB PO SCH (06:32)
[2021-01-01] MEDS: PANTOPRAZOLE 40 MG TABLET PO SCH (06:32)
[2021-01-01] MEDS: carvediloL 6.25 MG TAB PO SCH ×2 (06:32→17:07)
[2021-01-01] MEDS: INSULIN ASPART (NovoLOG) 100 UNIT/ML VIAL SQ SCH ×3 (07:30→17:30)
[2021-01-01 07:43] LABS: Basophils % (A) 1 %; Eosinophils # (A) 0.3 k/uL (0-0.7); Eosinophils % (A) 4 %; HCT 38.6 % (34.0-46.0); HGB 12.5 gm/dL (11.4-16.0); Lymphocytes # (A) 1.6 k/uL (1.0-4.8); Lymphocytes % (A) 23 %; MCH 32.2 pg (25.0-35.0); MCHC 32.3 g/dL (31.0-37.0); MCV 99.7 fL (80.0-100.0); Mean Platelet Volume 8.5; Monocytes # (A) 0.5 k/uL (0-1.0); Monocytes % (A) 7 %; Neutrophils # (A) 4.4 k/uL (1.3-7.7); Neutrophils % (A) 64 %; Platelet Count 234 k/uL (150-450); RBC 3.87 m/uL (3.80-5.40); RDW 13.4 % (11.5-15.5); WBC 6.9 k/uL (3.8-10.6)
[2021-01-01 08:03] LABS: ALT 34 U/L (4-34); AST 42 U/L (14-36); African American GFR (CKD) >90 (>60 ml/min/1.73 sqM); Albumin 3.7 g/dL (3.5-5.0); Alkaline Phosphatase 105 U/L (38-126); Anion Gap 6 mmol/L; Blood Urea Nitrogen 18 mg/dL (7-17); Calcium 9.9 mg/dL (8.4-10.2); Carbon Dioxide 29 mmol/L (22-30); Chloride 105 mmol/L (98-107); Glucose 84 mg/dL (74-99); Non-African American GFR(CKD) >90 (>60 ml/min/1.73 sqM); Potassium 3.8 mmol/L (3.5-5.1); Sodium 140 mmol/L (137-145); Total Bilirubin 0.4 mg/dL (0.2-1.3); Total Protein 6.4 g/dL (6.3-8.2)
--- NOTE | 2021-01-01 09:11 | P.PN ---
Subjective Progress Note Date: 01/01/21 This is a 75-year-old female patient of Dr. Bartholomew. Patient presented to the ER with complaints of confusion. Patient reports that she has not felt like herself over the past few days. Patient denies any other neurological symptoms. Patient does appear to be a poor historian and unable to tell exactly when she felt the symptoms started. Patient does have past medical history of atrial fibrillation, chest pain, eye disorder, carbamazepine GERD, hyperlipidemia, osteoarthritis, renal disease, rheumatoid arthritis, hypothyroidism and Ignacio-en-Y gastric bypass surgery in 2011. Chest x-ray completed showing correlation for mild volume overload. Head CT completed showing clinical consideration for acute right basal ganglionic leukon or infarct this is a new finding in comparison. Chronic appearing ventricular white matter ischemic type changes present previously. EKG showing normal sinus rhythm. Patient noted to have +3 peripheral edema. Patient reports this is chronic for her some erythema noted to bilateral legs. At that time neurology service is consulted. Carotid Doppler and 2-D echo ordered. Repeat labs ordered. Urine culture ordered. Patient denies chest pain or shortness of breath. Patient denies nausea vomiting or diarrhea. Patient denies any urinary burning or frequency Objective - Vital Signs Vital signs: Vital Signs Temp 98 F 01/01/21 04:00 Pulse 66 01/01/21 04:00 Resp 18 01/01/21 04:00 BP 126/71 01/01/21 04:00 Pulse Ox 95 01/01/21 04:00 Intake & Output 12/31/20 12/31/20 01/01/21 06:59 18:59 06:59 Intake Total 180 Balance 180 Weight 81.647 kg 81.647 kg 81.7 kg Intake: Oral 180 Other: # Voids 5 1 - Exam In general patient is alert and oriented 3 in no apparent distress Head normocephalic and atraumatic Neck supple no JVD no goiter no lymphadenopathy Lungs clear to auscultation bilaterally no wheezing or crackles Heart regular rate and rhythm S1-S2, no rub or gallop Abdomen is soft nontender nondistended positive bowel sounds no hepatosplenomegaly Extremities no edema Neuro alert and orientated x 3 Intermittent episodes of confusion difficulty finding words yesterday, speech is fluent today. Motor strength 5 out of 5 to all extremities. No signs of facial droop, there is no sensory deficit - Labs CBC & Chem 7: 01/01/21 06:39 01/01/21 06:39 Labs: Abnormal Lab Results - Last 24 Hours (Table) 12/31/20 12/31/20 12/31/20 Range/Units 07:06 07:06 08:03 RBC 3.71 L (3.80-5.40) m/uL BUN 33 H (7-17) mg/dL Glucose 245 H (74-99) mg/dL POC Glucose (mg/dL) (75-99) mg/dL Calcium 10.6 H (8.4-10.2) mg/dL AST 51 H (14-36) U/L ALT 38 H (4-34) U/L Urine Protein Trace H (Negative) Urine Glucose (UA) 2+ H (Negative) Ur Leukocyte Esterase Small H (Negative) Urine WBC 9 H (0-5) /hpf Urine Mucus Rare H (None) /hpf Urine Opiates Screen Detected H (NotDetected) 12/31/20 12/31/20 Range/Units 16:34 19:51 RBC (3.80-5.40) m/uL BUN (7-17) mg/dL Glucose (74-99) mg/dL POC Glucose (mg/dL) 246 H 106 H (75-99) mg/dL Calcium (8.4-10.2) mg/dL AST (14-36) U/L ALT (4-34) U/L Urine Protein (Negative) Urine Glucose (UA) (Negative) Ur Leukocyte Esterase (Negative) Urine WBC (0-5) /hpf Urine Mucus (None) /hpf Urine Opiates Screen (NotDetected) Assessment and Plan Assessment: 1. Mental status changes secondary to acute right lacunar infarct. Neurology services consulted. 2-D echo and carotid Doppler ordered 2. Bilateral lower extremity edema. Patient reports this is chronic for her. Patient is maintained on Bumex 3. History of paroxysmal atrial fibrillation. Patient has been maintained on eliquis 4. History of essential hypertension 5. History of chronic renal disease 6. History of fibromyalgia 7. History of hyperlipidemia. Patient is maintained on statin 8. History of hypothyroidism. 9. Urinary tract infection urine culture is pending will start Levaquin 500 mg once daily by mouth patient has a penicillin ALLERGY DVT prophylaxis eliquis. GI prophylaxis Protonix Neurology services consulted. Carotid and 2-D echo ordered. Repeat labs ordered TSH level ordered Urine Culture ordered
[2021-01-01] MEDS: ASPIRIN 325 MG TAB PO SCH (09:24)
[2021-01-01] MEDS: LEVOFLOXACIN 500 MG TAB PO SCH (09:24)
--- NOTE | 2021-01-01 12:49 | CDI ---
Documentation Clarification Form Date: 01/01/2021 12:43:05 PM From: Ivy Ferreira RN, CCDS Admit Date: 12/31/2020 10:34:00 AM Patient Name: Mirian Briceno Visit Number: [id number] ATTENTION: The Clinical Documentation Specialists (CDI) and [facility] Coding Staff appreciate your assistance in clarifying documentation. Please respond to the clarification below the line at the bottom and electronically sign. The CDI & [facility] Coding staff will review the response and follow-up if needed. Please note: Queries are made part of the Legal Health Record. If you have any questions, please contact the author of this message via ITS. Dr. Taina Vergara Unspecified CKD is documented in the 12/31 H&P. Additional clarification regarding the stage of CKD is requested. History/Risk Factors: 10/21/20 Patients Historical BUN/CR/GFR 27/02/63 Chronic renal disease, Vitamin b12 deficiency, paroxysmal atrial fib, HTN, HLD, Hypothyroidism, Fibromyalgia, RA, Vertigo, anemia Clinical Indicators: Current BUN: 3318 CR: .77/.6 GFR: 76/>90 Treatment: Bumex 1 mg PO BID Vitamin D3 125mcg PO Q HS Apresoline 10 mg PO BID Please clarify the stage of the CKD, if known: [ ] CKD Stage 1 (GFR > 90) [ ] CKD Stage 2 (GFR 60-89) [ ] CKD Stage 3 (GFR 30-59) [ ] CKD Stage 3a (GFR 45-59) [ ] CKD Stage 3b (GFR 30-44) [ ] CKD Stage 4 (GFR 15-29) [ ] CKD Stage 5 (GFR <15) [ ] ESRD [ ] Other, please specify [ ] Unable to determine (Template Last revised: July 2020) CKD stage 2 MTDD
[2021-01-01] MEDS: GABAPENTIN 100 MG CAP PO SCH ×2 (13:07→17:07)
[2021-01-01 13:15] LABS: Glucose,Whole Blood 133 mg/dL (75-99)
[2021-01-01] MEDS: PRAVASTATIN SODIUM 20 MG TAB PO SCH (17:07)
[2021-01-01 17:10] LABS: Glucose,Whole Blood 79 mg/dL (75-99)
--- NOTE | 2021-01-01 17:53 | P.PN ---
Subjective Progress Note Date: 01/01/21 Patient was seen for a follow-up. Patient's is also present. Patient's provided additional piece of history. He states that for the last 2 years patient has been delusional, stating that her son who in 2013 and both of her parents are alive and living with them. Patient at this time is sitting comfortably in the bed, states her mother and father both are in 70s, alive and lives in a town, where they have lived before. Patient's denies depression. Patient apparently cooks for 7 people although there are only 4 people living in the house, including patient, her , their daughter and her boyfriend. Patient's also mentions that on the day of admission, at 5:30 AM she wanted to go to the bathroom. She grabbed her purse like she was going somewhere. After her visit to the bathroom, he got her back to the recliner. She sat there and was not responding, like "not there", "out of it". She did not pass out. It took half an hour for her to come around. This is the reason he brought her to the hospital. Objective - Vital Signs Vital signs: Vital Signs Temp 98.1 F 01/01/21 16:00 Pulse 70 01/01/21 16:00 Resp 20 01/01/21 16:00 BP 132/67 01/01/21 16:00 Pulse Ox 96 01/01/21 16:00 Intake & Output 12/31/20 01/01/21 01/01/21 18:59 06:59 18:59 Intake Total 180 236 Output Total 350 Balance 180 -114 Weight 81.647 kg 81.7 kg Intake: Oral 180 236 Output: Urine 350 Other: # Voids 5 1 1 - Exam Patient is alert and awake. Patient actually believes that her mother and father both in their 70s year of age and alive and lives in their home. - Labs CBC & Chem 7: 01/01/21 06:39 01/01/21 06:39 Labs: Abnormal Lab Results - Last 24 Hours (Table) 12/31/20 01/01/21 01/01/21 Range/Units 19:51 06:39 12:55 BUN 18 H (7-17) mg/dL POC Glucose (mg/dL) 106 H 133 H (75-99) mg/dL AST 42 H (14-36) U/L Microbiology - Last 24 Hours (Table) 01/01/21 08:31 Urine Culture - Preliminary Urine,Clean Catch Assessment and Plan Assessment: * Abnormal computed tomography scan of head, revealed evidence of a possible lacunar CVA in the right basal ganglia. This is new as compared to the previous computed tomography scan from 06/08/2019, but appears chronic, not acute at this time. * Delusional disorder, patient actually believes that her parents in her 70s are alive, and living in their home. She also believes her son is also alive. denies depression, but needs further evaluation. * Episode of unresponsiveness, uncertain related to hyperglycemia or some other process. * Hypertension * Diabetes * Hyperlipidemia * Atrial fibrillation on anticoagulation. * History of B12 deficiency, on B12. Plan: * Carotid Doppler showed antegrade flow in the vertebral arteries. Less than 25% stenosis in both ICA. * 2-D echo revealed normal left-ventricular size, wall thickness and systolic function. EF is greater than 55%. Telemetry is moderately dilated. Bicuspid aortic valve. Moderate pulmonary hypertension.. * Continue Apixaban 5 mg twice a day. * Patient was not on any antiplatelet medication at home. Consider adding aspirin 81 mg for stroke prevention related to small vessel disease. * Aggressive control of all of stroke risk factors * Hemoglobin A1c 6.7 on 10/21/2020. * Lipid panel with cholesterol 184, LDL 88, HDL 82 and triglycerides 70. Continue Pravachol 20 mg. * EEG to rule out epileptiform activity. MRI of the brain because of altered mentation, abnormal computed tomography scan for further evaluation. * Psychiatry consultation for delusional disorder. * Dr. Khang Borrero will follow patient in the morning.
[2021-01-01 20:45] LABS: Glucose,Whole Blood 273 mg/dL (75-99)
[2021-01-01] MEDS: CHOLECALCIFEROL 25 MCG (1000 IU) TABLET PO SCH (20:58)
[2021-01-01] MEDS: INSULIN DETEMIR (LEVEMIR) 100 UNIT/ML SYR SQ SCH (20:58)
[2021-01-01] MEDS: DULoxetine HCL 60 MG CAPSULE.DR PO SCH (20:58)
[2021-01-01] MEDS: LATANOPROST 0.005% OPHTH DROPS 2.5 ML BTL BOTH EYES SCH (20:59)
[2021-01-01] MEDS: traZODone HCL 50 MG TAB PO SCH (20:59)
[2021-01-01 22:47] LABS: Cholesterol 175 mg/dL (0-200); LDL Cholesterol,Calculated 82.6 mg/dL (0.0-131.0)
[2021-01-02 06:14] LABS: Glucose,Whole Blood 107 mg/dL (75-99)
[2021-01-02] MEDS: BUMETANIDE 1 MG TAB PO SCH ×2 (06:47→15:05)
[2021-01-02] MEDS: APIXABAN 5 MG TAB PO SCH ×2 (06:47→16:38)
[2021-01-02] MEDS: PANTOPRAZOLE 40 MG TABLET PO SCH (06:47)
[2021-01-02] MEDS: amLODIPine 5 MG TAB PO SCH ×2 (06:47→16:39)
[2021-01-02] MEDS: hydrALAZINE HCL 10 MG TAB PO SCH ×2 (06:47→16:39)
[2021-01-02] MEDS: carvediloL 6.25 MG TAB PO SCH ×2 (06:47→16:38)
[2021-01-02] MEDS: LEVOTHYROXINE 125 MCG TAB PO SCH (06:47)
[2021-01-02 07:26] LABS: Albumin 3.8 g/dL (3.5-5.0); Calcium 9.6 mg/dL (8.4-10.2); Potassium 3.7 mmol/L (3.5-5.1); Total Bilirubin 0.3 mg/dL (0.2-1.3); Total Protein 6.5 g/dL (6.3-8.2)
[2021-01-02 07:28] LABS: Basophils % (A) 1 %; Eosinophils # (A) 0.2 k/uL (0-0.7); Eosinophils % (A) 3 %; HCT 38.8 % (34.0-46.0); HGB 12.9 gm/dL (11.4-16.0); Lymphocytes # (A) 1.3 k/uL (1.0-4.8); Lymphocytes % (A) 17 %; MCH 32.9 pg (25.0-35.0); MCHC 33.3 g/dL (31.0-37.0); MCV 98.8 fL (80.0-100.0); Monocytes # (A) 0.7 k/uL (0-1.0); Monocytes % (A) 9 %; Neutrophils # (A) 5.2 k/uL (1.3-7.7); Neutrophils % (A) 68 %; Platelet Count 266 k/uL (150-450); RBC 3.93 m/uL (3.80-5.40); RDW 13.2 % (11.5-15.5); WBC 7.6 k/uL (3.8-10.6)
[2021-01-02] MEDS: LEVOFLOXACIN 500 MG TAB PO SCH (08:29)
[2021-01-02] MEDS: INSULIN ASPART (NovoLOG) 100 UNIT/ML VIAL SQ SCH ×3 (08:30→17:27)
[2021-01-02] MEDS: ASPIRIN 325 MG TAB PO SCH (08:30)
--- NOTE | 2021-01-02 09:55 | P.PN ---
Subjective Progress Note Date: 01/02/21 This is a 75-year-old female patient of Dr. Bartholomew. Patient presented to the ER with complaints of confusion. Patient reports that she has not felt like herself over the past few days. Patient denies any other neurological symptoms. Patient does appear to be a poor historian and unable to tell exactly when she felt the symptoms started. Patient does have past medical history of atrial fibrillation, chest pain, eye disorder, carbamazepine GERD, hyperlipidemia, osteoarthritis, renal disease, rheumatoid arthritis, hypothyroidism and Ignacio-en-Y gastric bypass surgery in 2011. Chest x-ray completed showing correlation for mild volume overload. Head CT completed showing clinical consideration for acute right basal ganglionic leukon or infarct this is a new finding in comparison. Chronic appearing ventricular white matter ischemic type changes present previously. EKG showing normal sinus rhythm. Patient noted to have +3 peripheral edema. Patient reports this is chronic for her some erythema noted to bilateral legs. At that time neurology service is consulted. Carotid Doppler and 2-D echo ordered. Repeat labs ordered. Urine culture ordered. Patient denies chest pain or shortness of breath. Patient denies nausea vomiting or diarrhea. Patient denies any urinary burning or frequency On 01/02/2021 patient alert and oriented 3 with intermittent episodes of confusion. Neurology services are following MRI and EEG has been ordered patient also currently on Levaquin for urinary tract infection. At this time patient denies chest pain or shortness of breath. Patient denies nausea vomiting or diarrhea. Patient denies any urinary burning or frequency Objective - Vital Signs Vital signs: Vital Signs Temp 97.3 F L 01/02/21 08:00 Pulse 82 01/02/21 08:00 Resp 16 01/02/21 08:00 BP 156/75 01/02/21 08:00 Pulse Ox 95 01/02/21 08:00 Intake & Output 01/01/21 01/02/21 01/02/21 18:59 06:59 18:59 Intake Total 472 120 Output Total 1475 300 Balance -1003 -300 120 Weight 79.5 kg Intake: Oral 472 120 Output: Urine 1475 300 Other: # Voids 4 0 - Exam In general patient is alert and oriented 3 in no apparent distress Head normocephalic and atraumatic Neck supple no JVD no goiter no lymphadenopathy Lungs clear to auscultation bilaterally no wheezing or crackles Heart regular rate and rhythm S1-S2, no rub or gallop Abdomen is soft nontender nondistended positive bowel sounds no hepatosplenomegaly Extremities no edema Neuro alert and orientated x 3 Intermittent episodes of confusion difficulty finding words yesterday, speech is fluent today. Motor strength 5 out of 5 to all extremities. No signs of facial droop, there is no sensory deficit - Labs CBC & Chem 7: 01/02/21 06:31 01/02/21 06:31 Labs: Abnormal Lab Results - Last 24 Hours (Table) 01/01/21 01/01/21 01/01/21 Range/Units 06:39 12:55 20:37 Carbon Dioxide (22-30) mmol/L BUN (7-17) mg/dL Glucose (74-99) mg/dL POC Glucose (mg/dL) 133 H 273 H (75-99) mg/dL HDL Cholesterol 73.0 H (40.0-60.0) mg/dL 01/02/21 01/02/21 Range/Units 06:01 06:31 Carbon Dioxide 32 H (22-30) mmol/L BUN 23 H (7-17) mg/dL Glucose 122 H (74-99) mg/dL POC Glucose (mg/dL) 107 H (75-99) mg/dL HDL Cholesterol (40.0-60.0) mg/dL Microbiology - Last 24 Hours (Table) 01/01/21 08:31 Urine Culture - Preliminary Urine,Clean Catch Assessment and Plan Assessment: 1. Mental status changes secondary to acute right lacunar infarct. Neurology services consulted. 2-D echo and carotid Doppler ordered 2. Bilateral lower extremity edema. Patient reports this is chronic for her. Patient is maintained on Bumex 3. History of paroxysmal atrial fibrillation. Patient has been maintained on eliquis 4. History of essential hypertension 5. History of chronic renal disease 6. History of fibromyalgia 7. History of hyperlipidemia. Patient is maintained on statin 8. History of hypothyroidism. 9. Urinary tract infection urine culture is pending will start Levaquin 500 mg once daily by mouth patient has a penicillin ALLERGY DVT prophylaxis eliquis. GI prophylaxis Protonix Neurology services consulted. MRI and EEG has been ordered
[2021-01-02 11:58] LABS: Glucose,Whole Blood 75 mg/dL (75-99)
--- NOTE | 2021-01-02 12:34 | P.PN ---
Subjective Progress Note Date: 01/02/21 I am seeing the patient for the first time. Please refer to Dr. Rodriguez's note for further neurological history and assessment and plan. The patient is accompanied by her and she feels she back to her baseline and denies of any new weakness, numbness, tingling, difficulty getting her words out, visual disturbance. She denies of any headaches. She is still pending MRI Brain and routine EEG. Objective - Vital Signs Vital signs: Vital Signs Temp 97.3 F L 01/02/21 08:00 Pulse 82 01/02/21 08:00 Resp 16 01/02/21 08:00 BP 156/75 01/02/21 08:00 Pulse Ox 95 01/02/21 08:00 Intake & Output 01/01/21 01/02/21 01/02/21 18:59 06:59 18:59 Intake Total 472 120 Output Total 1475 300 Balance -1003 -300 120 Weight 79.5 kg Intake: Oral 472 120 Output: Urine 1475 300 Other: # Voids 4 0 - Exam GENERAL: The patient is lying in bed and is not in acute distress. NEUROLOGICAL: Higher mental function: The patient is awake, alert, oriented to self and place. For the month she stated it was June and for the year with options she stated it was 2049. Patient is able to name some objects (pen, watch and glasses). She is following simple commands. No aphasia and no neglect. Cranial nerves: The pupils are round, equal and reactive to light. Visual guo are full to confrontation throughout. Extraocular movement is intact no nystagmus is noted. Facial sensation is normal to touch throughout. The facial strength is normal throughout. Hearing is moderated decreased bilaterally to hand rub. Tongue is midline and moved [id number] without any difficulty. No dysarthria is noted. Motor: The strength is 5 over 5 throughout. Normal tone and bulk. Cerebellum: Normal finger to nose bilaterally. Sensation: Sensation is normal to touch throughout. WORK-UP: * CT head revealed clinical consideration for acute right basal ganglia on lacunar infarct. This is new finding in comparison to the previous computed tomography scan from 06/08/2019. Per Dr. Rodriguez, it appears chronic rather than acute. There is periventricular white matter ischemic type changes. * Carotid duplex was reported as there is antegrade flow in the vertebral arteries. The images and measurements suggest less than 25% stenosis in both internal carotid arteries. * 2-D echo revealed normal left-ventricular size, wall thickness and systolic function. EF is greater than 55%. Telemetry is moderately dilated. Bicuspid aortic valve. Moderate pulmonary hypertension.. * Hemoglobin A1c 6.7 on 10/21/2020. * Lipid panel with cholesterol 184, LDL 88, HDL 82 and triglycerides 70. Continue Pravachol 20 mg. - Labs CBC & Chem 7: 01/02/21 06:31 01/02/21 06:31 Labs: Abnormal Lab Results - Last 24 Hours (Table) 01/01/21 01/01/21 01/01/21 Range/Units 06:39 12:55 20:37 Carbon Dioxide (22-30) mmol/L BUN (7-17) mg/dL Glucose (74-99) mg/dL POC Glucose (mg/dL) 133 H 273 H (75-99) mg/dL HDL Cholesterol 73.0 H (40.0-60.0) mg/dL 01/02/21 01/02/21 Range/Units 06:01 06:31 Carbon Dioxide 32 H (22-30) mmol/L BUN 23 H (7-17) mg/dL Glucose 122 H (74-99) mg/dL POC Glucose (mg/dL) 107 H (75-99) mg/dL HDL Cholesterol (40.0-60.0) mg/dL Microbiology - Last 24 Hours (Table) 01/01/21 08:31 Urine Culture - Final Urine,Clean Catch Assessment and Plan Assessment: * Abnormal computed tomography scan of head, revealed evidence of a possible lacunar CVA in the right basal ganglia. This is [facility] as [facility], but appears chronic, not acute at this time. * Delusional disorder, patient actually believes that her parents in her 70s are alive, and living in their home. She also believes her son is also alive. * Episode of unresponsiveness, uncertain related to hyperglycemia or some other process. * Hypertension * Diabetes * Hyperlipidemia * Atrial fibrillation on anticoagulation. * History of B12 deficiency, on B12. Plan: * Continue Apixaban 5 mg twice a day (home med) and was added on aspirin 325mg daily mg for stroke prevention related to small vessel disease (recommend decreasing to 81mg daily from neurological stand point). Continue Pravachol 20 mg. * Pending EEG to rule out epileptiform activity. MRI of the brain because of altered mentation, abnormal computed tomography scan for further evaluation. * Psychiatry was consulted for delusional disorder. The plan is discussed with the patient's nurse. UPDATE: Routine EEG (preliminary): The background slowing is suggestive of mild encephalopathy of unspecified etiology. There are no focal slowing, epileptiform discharges or seizures on the EEG. Pending MRI Brain. Dr. Rodriguez will provide neurology coverage tomorrow in the AM. Khang Borrero MD Neuro-Hospitalist. Time with Patient: Less than 30
[2021-01-02] MEDS: GABAPENTIN 100 MG CAP PO SCH ×2 (15:04→16:40)
--- NOTE | 2021-01-02 16:21 | EEG ---
ELECTROENCEPHALOGRAM REPORT DATE OF SERVICE: 01/02/2021. CLINICAL HISTORY: This is a 75-year-old woman with episode of confusion. The video EEG is obtained to evaluate for seizure and epileptiform activity. RELEVANT MEDICATION: The patient is not on any antiepileptic drugs. EEG TYPE: A routine 21 channel EEG is performed with video using the 10/20 electrode [employer] placement system. DESCRIPTION: Wakefulness is only obtained. During wakefulness, there is a posterior dominant rhythm of moderate voltage of 9.5-10.5 hertz activity that is well modulated and well sustained. Also the background at times consists of diffuse theta activity. There is no sleep architecture seen. There is no focal slowing. Interictal and ictal is none. ACTIVATION PROCEDURES: Photic stimulation did not evoke a posterior driving response. There is no abnormality during photic stimulation. Hyperventilation is not performed. CLINICAL INTERPRETATION: This is an abnormal routine EEG. The background slowing is suggestive of mild encephalopathy of unspecified etiology. There are no focal slowing, epileptiform discharges or seizure on the EEG. Clinical correlation is recommended. MMFARIDEH / VALERIAN: [id number] / MTDD
[2021-01-02] MEDS: PRAVASTATIN SODIUM 20 MG TAB PO SCH (16:44)
[2021-01-02 17:11] LABS: Glucose,Whole Blood 170 mg/dL (75-99)
--- NOTE | 2021-01-02 17:38 | MR ---
EXAMINATION TYPE: MR brain wo con DATE OF EXAM: 01/02/2021 COMPARISON: Correlation CT 12/31/2020 and 06/08/2019 HISTORY: 75-year-old female altered mental status, confusion, rule out CVA. TECHNIQUE: Multiplanar, multisequence images of the brain and brainstem were acquired without IV con trast. Fast brain protocol was utilized. Diffusion weighted imaging is performed. FINDINGS: There is an oblong focus of mild increased signal on DWI along the right noonan radiata measuring 2.3 x 0.8 cm, new or increased as compared to 06/08/2019 CT. There is corresponding increased T2/FLAIR connie ghted sequences as well. The signal here is new compared to prior MRI 12/17/2016. T2/FLAIR weighted sequences otherwise show background of moderate patchy and confluent burden of whit e matter change especially in the periventricular and deep white matter regions of both cerebral sahil spheres. There is moderate generalized supratentorial volume loss with secondary mild prominence of the ventri cular system. No evidence for mass, mass effect, midline shift, herniation, or effacement of the basal subarachnoid cisterns. No extra-axial fluid collection is seen. Major intracranial flow voids are intact. Midline structures demonstrate normal morphology. The craniocervical junction is normal. Paranasal sinuses appear clear. Globes are intact. IMPRESSION: 1. Holly focus of mild restricted diffusion along the right noonan radiata measuring 2.3 x 0.8 cm ne w from the 2017 MRI. Corresponding hypodensity on the patient's 12/31/2020 CT is new from 06/08/2019. Gi mag mild increased signal, an acute to subacute deep white matter infarct is suggested. No mass effec t or midline shift. 2. Moderate generalized atrophy and moderate patchy and confluent burden of chronic small vessel isch emic disease.
[2021-01-02 20:43] LABS: Glucose,Whole Blood 95 mg/dL (75-99)
[2021-01-02] MEDS: CHOLECALCIFEROL 25 MCG (1000 IU) TABLET PO SCH (20:53)
[2021-01-02] MEDS: INSULIN DETEMIR (LEVEMIR) 100 UNIT/ML SYR SQ SCH (20:53)
[2021-01-02] MEDS: DULoxetine HCL 60 MG CAPSULE.DR PO SCH (20:53)
[2021-01-02] MEDS: traZODone HCL 50 MG TAB PO SCH (20:54)
[2021-01-02] MEDS: LATANOPROST 0.005% OPHTH DROPS 2.5 ML BTL BOTH EYES SCH (20:54)
[2021-01-03 06:05] LABS: Glucose,Whole Blood 130 mg/dL (75-99)
[2021-01-03] MEDS: LEVOTHYROXINE 125 MCG TAB PO SCH (06:51)
[2021-01-03] MEDS: hydrALAZINE HCL 10 MG TAB PO SCH (06:51)
[2021-01-03] MEDS: carvediloL 6.25 MG TAB PO SCH (06:51)
[2021-01-03] MEDS: APIXABAN 5 MG TAB PO SCH (06:51)
[2021-01-03] MEDS: BUMETANIDE 1 MG TAB PO SCH ×2 (06:51→12:15)
[2021-01-03] MEDS: amLODIPine 5 MG TAB PO SCH (06:51)
[2021-01-03] MEDS: PANTOPRAZOLE 40 MG TABLET PO SCH (06:52)
[2021-01-03 07:59] VITALS: RESP 16; TEMP 97.8
[2021-01-03] MEDS: ASPIRIN 325 MG TAB PO SCH (08:00)
[2021-01-03] MEDS: INSULIN ASPART (NovoLOG) 100 UNIT/ML VIAL SQ SCH ×2 (08:00→11:55)
[2021-01-03] MEDS: LEVOFLOXACIN 500 MG TAB PO SCH (08:00)
[2021-01-03 08:28] LABS: HCT 40.1 % (34.0-46.0); HGB 12.7 gm/dL (11.4-16.0); MCH 32.1 pg (25.0-35.0); MCHC 31.7 g/dL (31.0-37.0); MCV 101.3 fL (80.0-100.0); Macrocytosis Slight; Mean Platelet Volume 7.8; Platelet Count 279 k/uL (150-450); RBC 3.96 m/uL (3.80-5.40); RDW 13.5 % (11.5-15.5); WBC 7.5 k/uL (3.8-10.6)
[2021-01-03 08:44] LABS: Albumin 3.7 g/dL (3.5-5.0); Calcium 9.4 mg/dL (8.4-10.2); Potassium 3.7 mmol/L (3.5-5.1); Total Bilirubin 0.4 mg/dL (0.2-1.3); Total Protein 6.4 g/dL (6.3-8.2)
--- NOTE | 2021-01-03 10:38 | P.DS ---
Providers Date of admission: 12/31/20 10:34 Expected date of discharge: 01/03/21 Attending physician: Taina Vergara Consults: 12/31/20 09:50 Consult Physician Urgent Consulting Provider: Alessandro Rodriguez Consult Reason/Comments: CVA Do you want consulting provider notified?: Yes 01/01/21 16:34 Consult Physician Routine Consulting Provider: Tunde Chisholm Consult Reason/Comments: AMS, two-year history of hallucinations, believing parent alive Do you want consulting provider notified?: Yes Primary care physician: [facility] Course: Diagnosis on discharge: 1. Mental status changes secondary to acute right lacunar infarct. Neurology services consulted. 2-D echo and carotid Doppler ordered 2. Bilateral lower extremity edema. Patient reports this is chronic for her. Patient is maintained on Bumex 3. History of paroxysmal atrial fibrillation. Patient has been maintained on eliquis 4. History of essential hypertension 5. History of chronic renal disease 6. History of fibromyalgia 7. History of hyperlipidemia. Patient is maintained on statin 8. History of hypothyroidism. 9. Urinary tract infection urine culture is pending will start Levaquin 500 mg once daily by mouth patient has a penicillin ALLERGY Hospital course: This is a 75-year-old female patient of Dr. Bartholomew. Patient presented to the ER with complaints of confusion. Patient reports that she has not felt like herself over the past few days. Patient denies any other neurological symptoms. Patient does appear to be a poor historian and unable to tell exactly when she felt the symptoms started. Patient does have past medical history of atrial fibrillation, chest pain, eye disorder, carbamazepine GERD, hyperlipidemia, osteoarthritis, renal disease, rheumatoid arthritis, hypothyroidism and Ignacio-en-Y gastric bypass surgery in 2011. Chest x-ray completed showing correlation for mild volume overload. Head CT completed showing clinical consideration for acute right basal ganglionic leukon or infarct this is a new finding in comparison. Chronic appearing ventricular white matter ischemic type changes present previously. EKG showing normal sinus rhythm. Patient noted to have +3 peripheral edema. Patient reports this is chronic for her some erythema noted to bilateral legs. At that time neurology service is consulted. Carotid Doppler and 2-D echo ordered. Repeat labs ordered. Urine culture ordered. Patient denies chest pain or shortness of breath. Patient denies nausea vomiting or diarrhea. Patient denies any urinary burning or frequency On 01/02/2021 patient alert and oriented 3 with intermittent episodes of confusion. Neurology services are following MRI and EEG has been ordered patient also currently on Levaquin for urinary tract infection. At this time patient denies chest pain or shortness of breath. Patient denies nausea vomiting or diarrhea. Patient denies any urinary burning or frequency On 01/03/2021 patient was seen and examined on the medical floor she is alert and oriented 3 in no apparent distress she denies any symptoms she is requesting to go home there is no fever or chills no headache or dizziness no chest pain or shortness of breath no cough no nausea or vomiting no abdominal pain no diarrhea and no urinary symptoms. MRI and EEG reports reviewed, patient will be discharged home today pending neurology clearance for discharge Patient Condition at Discharge: Fair Plan - Discharge Summary New Discharge Prescriptions: New Aspirin 325 mg PO DAILY tab Levofloxacin [Levaquin] 500 mg PO Q24H 4 Days #4 tab Continue Bumetanide [BUMEX] 1 mg PO BID@0700,1200 Pantoprazole Sodium 40 mg PO AC-BRKFST DULoxetine HCL [Cymbalta] 60 mg PO HS traZODone HCL [Desyrel] 50 mg PO HS Gabapentin [Neurontin] 100 mg PO BID@1200,1800 SILVER sulfADIAZINE Cream [Silvadene 1% Cream] 1 applic TOPICAL DAILY PRN PRN Reason: Skin Irritation Apixaban [Eliquis] 5 mg PO BID-W/MEALS Pravastatin Sodium [Pravachol] 20 mg PO W/SUPPER Acetaminophen [Tylenol] 500 mg PO Q4H PRN PRN Reason: Pain Or Fever > 100.5 Cinnamon 250 Mg 250 mg PO AC-BID@0700,1200 carvediloL [Coreg] 6.25 mg PO BID-W/MEALS Insulin Detemir [Levemir Flextouch] 12 units SQ HS HYDROcodone/APAP 5-325MG [[place] 5-325] 1 tab PO TID PRN PRN Reason: Pain Diclofenac Sodium [Voltaren Arthritis Pain 1% Gel] 2 gm TOPICAL DAILY Insulin Aspart [NovoLOG Flexpen] 12 units SQ AC-TID amLODIPine [Norvasc] 5 mg PO BID-W/MEALS Milk Thistle 250mg 250 mg PO BID-W/MEALS Travoprost [Travatan Z 0.004%] 1 drop BOTH EYES HS Levothyroxine Sodium [Synthroid] 125 mcg PO AC-BRKFST Cyanocobalamin (Vitamin B-12) [Vitamin B-12] 1,000 mcg PO AC-BRKFST Mupirocin 2% Oint [Bactroban 2% Oint] 1 applic TOPICAL TID hydrALAZINE HCL [Apresoline] 10 mg PO BID-W/MEALS Cholecalciferol [Vitamin D3 (25 Mcg = 1000 Iu)] 125 mcg PO HS Discharge Medication List Bumetanide [BUMEX] 1 mg PO BID@0700,1200 10/02/14 [History] Pantoprazole Sodium 40 mg PO AC-BRKFST 10/02/14 [History] DULoxetine HCL [Cymbalta] 60 mg PO HS 04/16/15 [History] traZODone HCL [Desyrel] 50 mg PO HS 06/06/15 [History] Gabapentin [Neurontin] 100 mg PO BID@1200,1800 12/16/16 [History] SILVER sulfADIAZINE Cream [Silvadene 1% Cream] 1 applic TOPICAL DAILY PRN 07/04/17 [History] Apixaban [Eliquis] 5 mg PO BID-W/MEALS 09/27/18 [History] Pravastatin Sodium [Pravachol] 20 mg PO W/SUPPER 09/27/18 [History] Acetaminophen [Tylenol] 500 mg PO Q4H PRN 04/03/19 [History] Cinnamon 250 Mg 250 mg PO AC-BID@0700,1200 05/01/19 [History] carvediloL [Coreg] 6.25 mg PO BID-W/MEALS 05/01/19 [History] Insulin Detemir [Levemir Flextouch] 12 units SQ HS 08/06/19 [History] Cholecalciferol [Vitamin D3 (25 Mcg = 1000 Iu)] 125 mcg PO HS 12/31/20 [History] Cyanocobalamin (Vitamin B-12) [Vitamin B-12] 1,000 mcg PO AC-BRKFST 12/31/20 [History] Diclofenac Sodium [Voltaren Arthritis Pain 1% Gel] 2 gm TOPICAL DAILY 12/31/20 [History] HYDROcodone/APAP 5-325MG [[place] 5-325] 1 tab PO TID PRN 12/31/20 [History] Insulin Aspart [NovoLOG Flexpen] 12 units SQ AC-TID 12/31/20 [History] Levothyroxine Sodium [Synthroid] 125 mcg PO AC-BRKFST 12/31/20 [History] Milk Thistle 250mg 250 mg PO BID-W/MEALS 12/31/20 [History] Mupirocin 2% Oint [Bactroban 2% Oint] 1 applic TOPICAL TID 12/31/20 [History] Travoprost [Travatan Z 0.004%] 1 drop BOTH EYES HS 12/31/20 [History] amLODIPine [Norvasc] 5 mg PO BID-W/MEALS 12/31/20 [History] hydrALAZINE HCL [Apresoline] 10 mg PO BID-W/MEALS 12/31/20 [History] Aspirin 325 mg PO DAILY tab 01/03/21 [Rx] Levofloxacin [Levaquin] 500 mg PO Q24H 4 Days #4 tab 01/03/21 [Rx] Follow up Appointment(s)/Referral(s): Taina Vergara MD [Primary Care Provider] - 1-2 days
[2021-01-03 10:55] LABS: Band Neutrophils % 1 %; Eosinophils # (M) 0.08 k/uL (0-0.7); Lymphocytes # (M) 1.05 k/uL (1.0-4.8); Neutrophils % (M) 76 %; Nucleated Red Blood Cells 0 /100 WBC (0-0); Total Cells Counted 100
[2021-01-03 11:45] VITALS: BP 117/69; PULSE 70
[2021-01-03 11:54] LABS: Glucose,Whole Blood 67 mg/dL (75-99)
[2021-01-03 12:12] LABS: Glucose,Whole Blood 84 mg/dL (75-99)
[2021-01-03] MEDS: GABAPENTIN 100 MG CAP PO SCH (12:15)
--- NOTE | 2021-01-03 17:07 | P.CN ---
Psychiatric Consult - . Consult date: 01/03/21 Consult:: 01/03/21 15:05 IDENTIFYING DATA: This patient is a [75-year-old female. She is the mother of 2 surviving children and also has a son. REASON FOR REFERRAL: Psychiatry was consulted for hallucinations HISTORY OF PRESENT ILLNESS: The patient presented to the hospital [due to altered mental status. The patient was found to have acute lacunar infarct and urinary tract infection. Neurology was consulted. According to the nurse on duty, the patient is a pleasant with no evidence of hallucinations. Met with the patient in the presence of her King . According to King the patient memory has been declining for about 2 years. At times the patient confused her as being her father. On number of occasions she thought her son still alive. The patient stopped driving due to her memory issues. It was reported that the patient is capable of taking her own showers and change her on close. She can feed herself and use the bathroom with no issues. The patient is oriented to self and location but not to time. It was reported that her confusion comes and goes . Patient denies having hallucinations. The patient's verified the patient reported. According to the the patient's neurologist mentioned that she might have dementia. Patient denies feeling depressed or anxious. At this time patient denies any suicidal or homical ideations, intent or plan. Patient denies any a uditory, visual hallucinations and denies any paranoia or delusions. PAST PSYCHIATRIC HISTORY: No history of inpatient psychiatric admissions. No history of having psychiatric issues such as depression, anxiety, bipolar or thought disorder. No history of receiving medications for any psychiatric issues. Should be noted the patient is currently on Cymbalta for fibromyalgia. No history of suicide attempts. PAST MEDICAL HISTORY: Patient was found to have acute lacunar infarct and urinary tract infection and she also has history of A. fib, angina, diabetes, I disorder, fibromyalgia, GERD/ReFlex, hyperlipidemia, hypertension, osteoarthritis, history of pneumonia and renal disease and thyroid disease ALLERGIES: as per EMR. CHEMICAL DEPENDENCY HISTORY: as per HPI. FAMILY PSYCHIATRIC/SUBSTANCE USE HISTORY: None reported SOCIAL HISTORY: Patient was born and raised in [place]. She has 2 brothers. Patient is currently to her current for over 50 years. They have 2 surviving children and one son who at the age of 14. MENTAL STATUS EXAM: General Appearance: Patient appears to be stated age is alert self and location but not to time. She appeared confused at times, cooperative. Patient appears to have fair hygiene Behavior: Patient is calmly lying in bed without any agitated behavior. Speech: Patient's speech is fluent and nonpressured. Mood/Affect: Patient reports their mood is " Fine ", affect is congruent Suicidality/Homicidality: Patient denies having any suicidal or homicidal ideation intent or plan. Perceptions: Patient denies any visual hallucinations and denies any auditory hallucinations Though content/process: There is no evidence of any delusional thought content and thought process is linear and goal-directed. Memory and concentration: Was difficult to assess her memory due to being confused Judgment and insight: limited IMPRESSIONS: Delirium due to general medical conditions Rule out dementia superimposed by delirium PLAN: -Delirium precautions recommended with patient including - avoiding use of narcotics and [employer] sedatives, limit anticholinergic medications when possible, frequent re-orientation, minimize use of restraints, open window shades during the day and close them at night. At the patient had hallucinations it would be most likely related to her delirium. Would recommend an antipsychotic such as Haldol if the patient becomes agitated. -Would recommend the following medication changes/additions: None -Communicated plan to patient's nurse -Will continue to follow along -Please contact with any questions. 01/03/21 16:51
--- NOTE | 2021-01-05 00:01 | P.PN ---
Subjective Progress Note Date: 01/03/21 01/03/2021: Patient was seen via Tele-neurology today on 01/03/2021. Patient is doing much better. She is more calm and pleasant. She knows her name and where at. Don't know the date. Psychiatrist also has seen the patient. Patient was mixing up her with her father. It was felt patient has delirium, rule out underlying dementia. Telemetry monitoring showing sinus rhythm. Patient at present believes her parents are alive, stating they are "hanging around for 50 years". Patient believes they are in their 70s. Patient does admit that her son , and that he is not alive. 01/01/2021: Patient was seen for a follow-up. Patient's is also pres ent. Patient's provided additional piece of history. He states that for the last 2 years patient has been delusional, stating that her son who in 2013 and both of her parents are alive and living with them. Patient at this time is sitting comfortably in the bed, states her mother and father both are in 70s, alive and lives in a town, where they have lived before. Patient's denies depression. Patient apparently cooks for 7 people although there are only 4 people living in the house, including patient, her , their daughter and her boyfriend. Patient's also mentions that on the day of admission, at 5:30 AM she wanted to go to the bathroom. She grabbed her purse like she was going somewhere. After her visit to the bathroom, he got her back to the recliner. She sat there and was not responding, like "not there", "out of it". She did not pass out. It took half an hour for her to come around. This is the reason he brought her to the hospital. Objective - Vital Signs Vital signs: Vital Signs Temp 97.8 F 01/03/21 07:58 Pulse 70 01/03/21 13:05 Resp 16 01/03/21 13:05 BP 117/69 01/03/21 11:42 Pulse Ox 98 01/03/21 11:42 - Exam Patient is alert and awake. Patient states it's June, then changes into December and the year is 1969 but then said "I don't know". Patient knows she is in [facility]. She was able to recognize her who was standing by her side. Results of the examination is unchanged. - Labs CBC & Chem 7: 01/03/21 08:08 01/03/21 08:08 Assessment and Plan Assessment: * Abnormal computed tomography scan of head, revealed evidence of a possible lacunar CVA in the right basal ganglia. MRI of the brain confirmed oblong focus of mild restricted diffusion along the right noonan radiate to measuring 2.3 x 0.8 cm, new from the 2017 MRI. Given mild increased signal, an acute to subacute deep white matter infarct is suggested. No mass effect or midline shift. * Delusional disorder, patient actually believes that her parents in her 70s are alive, and living in their home. She also believes her son is also alive. denies depression, but needs further evaluation. Patient seen by psychiatrist, who believes patient has delirium, rule out underlying dementia. * Episode of unresponsiveness, uncertain related to hyperglycemia or some other process. * Hypertension * Diabetes * Hyperlipidemia * Atrial fibrillation on anticoagulation. * History of B12 deficiency, on B12. Plan: * MRI report mentioned above. * EEG was abnormal. Background slowing is suggestive of mild encephalopathy of unspecified etiology. There are no focal slowing, epileptiform discharges or seizures on the EEG. Clinical correlation is recommended. * Carotid Doppler showed antegrade flow in the vertebral arteries. Less than 25% stenosis in both ICA. * 2-D echo revealed normal left-ventricular size, wall thickness and systolic function. EF is greater than 55%. Telemetry is moderately dilated. Bicuspid aortic valve. Moderate pulmonary hypertension.. * Continue Apixaban 5 mg twice a day. * Patient was not on any antiplatelet medication at home. Consider adding aspirin 81 mg for stroke prevention related to small vessel disease. * Aggressive control of all of stroke risk factors * Hemoglobin A1c 6.7 on 10/21/2020. * Lipid panel with cholesterol 184, LDL 88, HDL 82 and triglycerides 70. Continue Pravachol 20 mg. * Neurologically clear for discharge. Recommend follow-up with neurologist in 2-4 weeks.
== END 2021-01-03 15:36 | disposition home or self-care (01) | DRG 65 ==
LOC: EC 06:04 → 3SCARD 10:34
PROVIDERS: ADMIT Internal Medicine; ATTEND Internal Medicine
DX: I63.81 Other cerebral infarction due to occlusion or stenosis of small artery (principal); R44.3 Hallucinations, unspecified; F05 Delirium due to known physiological condition; N39.0 Urinary tract infection, site not specified; E53.8 Deficiency of other specified B group vitamins; E03.9 Hypothyroidism, unspecified; E11.22 Type 2 diabetes mellitus with diabetic chronic kidney disease; E78.5 Hyperlipidemia, unspecified; E87.70 Fluid overload, unspecified; F17.200 Nicotine dependence, unspecified, uncomplicated; F22 Delusional disorders; I12.9 Hypertensive chronic kidney disease with stage 1 through stage 4 chronic kidney disease, or unspecified chronic kidney disease; I48.0 Paroxysmal atrial fibrillation; M19.90 Unspecified osteoarthritis, unspecified site; M79.7 Fibromyalgia; N18.9 Chronic kidney disease, unspecified; Z79.01 Long term (current) use of anticoagulants; Z79.4 Long term (current) use of insulin; Z79.890 Hormone replacement therapy; Z79.899 Other long term (current) drug therapy; Z82.0 Family history of epilepsy and other diseases of the nervous system; Z82.49 Family history of ischemic heart disease and other diseases of the circulatory system; Z88.0 Allergy status to penicillin; Z90.710 Acquired absence of both cervix and uterus; Z98.84 Bariatric surgery status; M06.9 Rheumatoid arthritis, unspecified; K59.00 Constipation, unspecified; K21.9 Gastro-esophageal reflux disease without esophagitis
CPT/HCPCS: 36415; 70450; 70551; 71046; 80053; 80061; 80306; 81001; 82140; 83605; 83880; 84443; 84484; 85025; 85610; 85730; 87086; 93005; 93306; 93880; 95816; 96360; 96361; 99285

== ENCOUNTER → 2021-03-09 | Outpatient (CLI) | payer MEDICARE, BC ==
[2021-03-09 12:26] LABS: Appearance,Urine Clear (Clear); Bilirubin,Urine Negative (Negative); Blood,Urine Negative (Negative); Color,Urine Yellow; Glucose,Urine (UA) Negative (Negative); Ketones,Urine Negative (Negative); Leukocyte Esterase,Urine Small (Negative); Nitrite,Urine Negative (Negative); Protein,Urine 1+ (Negative); Specific Gravity,Urine 1.015 (1.001-1.035); Squamous Epithelial Cell,Urine 1 /hpf (0-4); Urobilinogen,Urine <2.0 mg/dL (<2.0); WBC,Urine 1 /hpf (0-5)
[2021-03-09 12:47] LABS: Creatinine,Urine Random 54.6 mg/dL; Protein/Creatinine Ratio,Urine 0.623
[2021-03-09 20:39] LABS: Basophils # (A) 0.06 X 10*3/uL (0.00-0.10); Basophils % (A) 0.9 %; Eosinophils # (A) 0.53 X 10*3/uL (0.04-0.35); Eosinophils % (A) 8.2 %; HCT 36.3 % (37.2-46.3); HGB 11.3 g/dL (12.0-15.0); Lymphocytes # (A) 1.31 X 10*3/uL (0.90-5.00); Lymphocytes % (A) 20.2 %; MCH 31.6 pg (27.0-32.0); MCHC 31.1 g/dL (32.0-37.0); MCV 101.4 fL (80.0-97.0); Mean Platelet Volume 10.9 fL (9.5-12.2); Monocytes # (A) 0.55 X 10*3/uL (0.20-1.00); Monocytes % (A) 8.5 %; Neutrophils # (A) 4.01 X 10*3/uL (1.80-7.70); Platelet Count 295 X 10*3/uL (140-440); RBC 3.58 X 10*6/uL (4.10-5.20); RDW 14.5 % (11.5-14.5); WBC 6.47 X 10*3/uL (4.50-10.00)
[2021-03-09 21:27] LABS: Chol/HDL Ratio 2.09 Ratio; Ferritin 87.5 ng/mL (10.0-291.0); HDL Cholesterol 91.4 mg/dL (40.00-60.00); Triglycerides 82.9 mg/dL (0.00-149.00); VLDL Calculation 16.58 mg/dL (5.00-40.00)
[2021-03-10 07:57] LABS: Albumin 4.2 g/dL (3.8-4.9); Albumin/Globulin Ratio 1.53 (1.60-3.17); BUN/Creat Ratio 32.17 Ratio (12.00-20.00); Blood Urea Nitrogen 27.7 mg/dL (9.0-27.0); Calcium 9.8 mg/dL (8.7-10.3); Globulin 2.7 g/dL (1.6-3.3); Magnesium 2.4 mg/dL (1.5-2.4); Non-African American GFR(CKD) 66.5 (60.0-200.0); Phosphorus 4.7 mg/dL (2.4-5.1); Potassium 4.6 mmol/L (3.5-5.5); Total Bilirubin 0.2 mg/dL (0.30-1.20); Total Protein 6.9 g/dL (6.2-8.2); Uric Acid 5.8 mg/dL (2.9-7.7)
[2021-03-10 18:22] LABS: % Iron Saturation 32.77 (12.00-45.00)
== END | disposition home or self-care (01) ==
LOC: LABWHC1 11:14
PROVIDERS: ATTEND Internal Medicine Nephrology
DX: I12.9 Hypertensive chronic kidney disease with stage 1 through stage 4 chronic kidney disease, or unspecified chronic kidney disease (principal); E11.22 Type 2 diabetes mellitus with diabetic chronic kidney disease; E03.9 Hypothyroidism, unspecified; E78.5 Hyperlipidemia, unspecified; N25.81 Secondary hyperparathyroidism of renal origin; N18.31 Chronic kidney disease, stage 3a; M10.9 Gout, unspecified; N39.0 Urinary tract infection, site not specified; D64.9 Anemia, unspecified; R80.9 Proteinuria, unspecified
CPT/HCPCS: 36415; 80053; 80061; 81001; 82306; 82570; 82728; 83036; 83540; 83550; 83735; 83970; 84100; 84156; 84443; 84550; 85025

== ENCOUNTER 2021-03-14 21:30 | Observation (INO) | payer MEDICARE, BC ==
[2021-03-14] MEDS ORDERED: DEXTROSE 50% SYRINGE 50 ML IVP STA (21:35)
[2021-03-14 21:45] LABS: Glucose,Whole Blood 185 mg/dL (75-99)
[2021-03-14 21:54] VITALS: RESP 18
[2021-03-14] MEDS ORDERED: SODIUM CHLORIDE 0.9% 1,000 ML IV STA (21:57)
[2021-03-14 22:09] LABS: Glucose,Whole Blood 106 mg/dL (75-99)
[2021-03-14] MEDS ORDERED: DEXTROSE 5%-0.45% NACL 1,000 ML IV ONE (22:10)
[2021-03-14 22:14] LABS: Basophils % (A) 1 %; Eosinophils # (A) 0.8 k/uL (0-0.7); Eosinophils % (A) 8 %; HCT 40.5 % (34.0-46.0); HGB 13.3 gm/dL (11.4-16.0); Lymphocytes # (A) 2.5 k/uL (1.0-4.8); Lymphocytes % (A) 26 %; MCH 32.6 pg (25.0-35.0); MCHC 32.9 g/dL (31.0-37.0); MCV 99.1 fL (80.0-100.0); Mean Platelet Volume 8.5; Monocytes # (A) 0.7 k/uL (0-1.0); Monocytes % (A) 7 %; Neutrophils # (A) 5.5 k/uL (1.3-7.7); Neutrophils % (A) 57 %; Platelet Count 327 k/uL (150-450); RBC 4.08 m/uL (3.80-5.40); RDW 13.4 % (11.5-15.5); WBC 9.7 k/uL (3.8-10.6)
--- NOTE | 2021-03-14 22:16 | ED ---
Altered Mental Status HPI - General Chief Complaint: Recheck/Abnormal Lab/Rx Stated Complaint: diaphoretic Time Seen by Provider: 03/14/21 21:47 Source: patient, RN notes reviewed, old records reviewed, Caregiver Mode of arrival: wheelchair Limitations: altered mental status, physical limitation - History of Present Illness Initial Comments: This is a 75-year-old female to the emergency department today. She presents today for evaluation regarding altered mental status. Patient's brought in by her to the emergency department not acting appropriately. Patient is unable to provide history history is provided by who states that she has not feeling awake and alert for [facility] all day and finally was able to take her. On arrival patient's blood sugar is noted to be low in the 30s MD Complaint: altered mental status, confusion, decreased responsiveness, weakness -: hour(s) Severity: moderate Consistency of Symptoms: getting worse Context: history of similar presentation Associated Symptoms: malaise - Related Data Home Medications Medication Instructions Recorded Confirmed Bumetanide [BUMEX] 1 mg PO BID@0700,1200 10/02/14 12/31/20 Pantoprazole Sodium 40 mg PO AC-BRKFST 10/02/14 12/31/20 DULoxetine HCL [Cymbalta] 60 mg PO HS 04/16/15 12/31/20 traZODone HCL [Desyrel] 50 mg PO HS 06/06/15 12/31/20 Gabapentin [Neurontin] 100 mg PO BID@1200,1800 12/16/16 12/31/20 SILVER sulfADIAZINE Cream 1 applic TOPICAL DAILY PRN 07/04/17 12/31/20 [Silvadene 1% Cream] Apixaban [Eliquis] 5 mg PO BID-W/MEALS 09/27/18 12/31/20 Pravastatin Sodium [Pravachol] 20 mg PO W/SUPPER 09/27/18 12/31/20 Acetaminophen [Tylenol] 500 mg PO Q4H PRN 04/03/19 12/31/20 Cinnamon 250 Mg 250 mg PO AC-BID@0700,1200 05/01/19 12/31/20 carvediloL [Coreg] 6.25 mg PO BID-W/MEALS 05/01/19 12/31/20 Insulin Detemir [Levemir Flextouch 12 units SQ HS 08/06/19 12/31/20 Pen] Cholecalciferol [Vitamin D3 (25 125 mcg PO HS 12/31/20 12/31/20 Mcg = 1000 Iu)] Cyanocobalamin (Vitamin B-12) 1,000 mcg PO AC-BRKFST 12/31/20 12/31/20 [Vitamin B-12] Diclofenac Sodium [Voltaren 2 gm TOPICAL DAILY 12/31/20 12/31/20 Arthritis Pain 1% Gel] HYDROcodone/APAP 5-325MG [[place] 1 tab PO TID PRN 12/31/20 12/31/20 5-325] Insulin Aspart [NovoLOG Flexpen] 12 units SQ AC-TID 12/31/20 12/31/20 Levothyroxine Sodium [Synthroid] 125 mcg PO AC-BRKFST 12/31/20 12/31/20 Milk Thistle 250mg 250 mg PO BID-W/MEALS 12/31/20 12/31/20 Mupirocin 2% Oint [Bactroban 2% 1 applic TOPICAL TID 12/31/20 12/31/20 Oint] Travoprost [Travatan Z 0.004%] 1 drop BOTH EYES HS 12/31/20 12/31/20 amLODIPine [Norvasc] 5 mg PO BID-W/MEALS 12/31/20 12/31/20 hydrALAZINE HCL [Apresoline] 10 mg PO BID-W/MEALS 12/31/20 12/31/20 Previous Rx's Medication Instructions Recorded Aspirin 81 mg PO DAILY #0 chewable 01/03/21 Aspirin 325 mg PO DAILY tab 01/03/21 Levofloxacin [Levaquin] 500 mg PO Q24H 4 Days #4 tab 01/03/21 Allergies Allergy/AdvReac Type Severity Reaction Status Date / Time adhesive tape Allergy Rash/Hives Verified 03/14/21 21:54 triamcinolone Allergy Unknown Verified 03/14/21 21:54 venom-honey bee Allergy Swelling Verified 03/14/21 21:54 caffeine AdvReac Nausea & Verified 03/14/21 21:54 Vomiting & Diarrhea hydrocodone bitartrate AdvReac Itching Verified 03/14/21 21:54 [From Lorcet (hydrocodone)] Penicillins AdvReac Nausea & Verified 10/09/21 21:54 Vomiting & Diarrhea tramadol HCl [From Ultram] AdvReac Itching Verified 03/14/21 21:54 Review of Systems ROS Statement: Those systems with pertinent positive or pertinent negative responses have been documented in the HPI. ROS Other: All systems not noted in ROS Statement are negative. Past Medical History Past Medical History: Atrial Fibrillation, Chest Pain / Angina, Diabetes Mellitus, Eye Disorder, Fibromyalgia, GERD/Reflux, Hyperlipidemia, Hypertension, Osteoarthritis (OA), Pneumonia, Renal Disease, Rheumatoid Arthritis (RA), Thyr oid Disorder Additional Past Medical History / Comment(s): Mild glaucoma stabe. BURSITIS, hx falls, past chronic sacral wound, occ Vertigo, anemia, Constipation History of Any Multi-Drug Resistant Organisms: None Reported Past Surgical History: Adenoidectomy, Cholecystectomy, Hysterectomy, Joint Replacement, Orthopedic Surgery, Tonsillectomy Additional Past Surgical History / Comment(s): 3 RIGHT KNEE SURGERIES AND 2 LEFT, TOTAL KNEE REPLACEMENTS SURGERIES. D&C'S. Lap Ignacio-en-Y gastric bypass [place] [address] Zambrano , total hysterectomy for fibroid tumor, tubal ligation Past Anesthesia/Blood Transfusion Reactions: Motion Sickness Additional Past Anesthesia/Blood Transfusion Reaction / Comment(s): Pt received blood in 2013 without reaction. Past Psychological History: No Psychological Hx Reported Smoking Status: Never smoker Past Alcohol Use History: Unable to Obtain Past Drug Use History: Unable to Obtain - Past Family History Mother Family Medical History: Coronary Artery Disease (CAD) Additional Family Medical History / Comment(s): age 90 of heart failure. Had hx of Parkinsons and Narcolepsy Father Family Medical History: Coronary Artery Disease (CAD) Additional Family Medical History / Comment(s): age 73 of massive heart attack General Exam Limitations: altered mental status, physical limitation General appearance: alert, in no apparent distress, lethargic Head exam: Present: atraumatic, normocephalic, normal inspection Eye exam: Present: normal appearance, PERRL, EOMI. Absent: scleral icterus, conjunctival injection, periorbital swelling ENT exam: Present: normal exam, mucous membranes moist Neck exam: Present: normal inspection. Absent: tenderness, meningismus, lymphadenopathy Respiratory exam: Present: normal lung sounds bilaterally. Absent: respiratory distress, wheezes, rales, rhonchi, stridor Cardiovascular Exam: Present: regular rate, normal rhythm, normal heart sounds. Absent: systolic murmur, diastolic murmur, rubs, gallop, clicks GI/Abdominal exam: Present: soft, normal bowel sounds. Absent: distended, tenderness, guarding, rebound, rigid Extremities exam: Present: normal inspection, full ROM, normal capillary refill. Absent: tenderness, pedal edema, joint swelling, calf tenderness Back exam: Present: normal inspection Neurological exam: Present: alert, oriented X3, CN II-XII intact Psychiatric exam: Present: normal affect, normal mood Skin exam: Present: warm, dry, intact, normal color. Absent: rash Course Vital Signs 03/14/21 03/14/21 21:52 23:58 Temperature 97.4 F L Pulse Rate 68 66 Respiratory 18 18 Rate Blood Pressure 158/78 115/59 O2 Sat by Pulse 97 97 Oximetry - Reevaluation(s) Reevaluation #1: 03/14/21 22:15 Medical records reviewed Reevaluation #2: 03/14/21 22:15 Initial blood sugar being low is corrected with blood sugar did drop back down Started on IV dextrose 03/15/21 00:18 Patient continues to remain borderline here in the emergency department Reevaluation #3: 03/15/21 00:18 patient patient informed results and questions answered - Consultations Consultation #1: Spoke with Dr. Vergara who will admit this patient Medical Decision Making - Medical Decision Making 75 female to the emergency department today. Patient presents today for evaluation regards to altered mental status found to be significantly hypoglycemic. With recurrent hypoglycemia started on IV dextrose and admitted f or further monitoring - Lab Data Result diagrams: 03/14/21 22:00 03/14/21 22:00 Lab Results 03/14/21 03/14/21 03/14/21 Range/Units 21:44 22:00 22:00 WBC 9.7 (3.8-10.6) k/uL RBC 4.08 (3.80-5.40) m/uL Hgb 13.3 (11.4-16.0) gm/dL Hct 40.5 (34.0-46.0) % MCV 99.1 (80.0-100.0) fL MCH 32.6 (25.0-35.0) pg MCHC 32.9 (31.0-37.0) g/dL RDW 13.4 (11.5-15.5) % Plt Count 327 (150-450) k/uL MPV 8.5 Neutrophils % 57 % Lymphocytes % 26 % Monocytes % 7 % Eosinophils % 8 % Basophils % 1 % Neutrophils # 5.5 (1.3-7.7) k/uL Lymphocytes # 2.5 (1.0-4.8) k/uL Monocytes # 0.7 (0-1.0) k/uL Eosinophils # 0.8 H (0-0.7) k/uL Basophils # 0.0 (0-0.2) k/uL PT 10.1 (9.0-12.0) sec INR 0.9 (<1.2) APTT 23.8 (22.0-30.0) sec Sodium (137-145) mmol/L Potassium (3.5-5.1) mmol/L Chloride (98-107) mmol/L Carbon Dioxide (22-30) mmol/L Anion Gap mmol/L BUN (7-17) mg/dL Creatinine (0.52-1.04) mg/dL Est GFR (CKD-EPI)AfAm (>60 ml/min/1.73 sqM) Est GFR (CKD-EPI)NonAf (>60 ml/min/1.73 sqM) Glucose (74-99) mg/dL POC Glucose (mg/dL) 185 H (75-99) mg/dL POC Glu Weaving Supervisor ID Alejo Mustafa Plasma Lactic Acid Chucky (0.7-2.0) mmol/L Calcium (8.4-10.2) mg/dL Phosphorus (2.5-4.5) mg/dL Magnesium (1.6-2.3) mg/dL Total Bilirubin (0.2-1.3) mg/dL AST (14-36) U/L ALT (4-34) U/L Alkaline Phosphatase (38-126) U/L Troponin I (0.000-0.034) ng/mL Total Protein (6.3-8.2) g/dL Albumin (3.5-5.0) g/dL 03/14/21 03/14/21 03/14/21 Range/Units 22:00 22:00 22:00 WBC (3.8-10.6) k/uL RBC (3.80-5.40) m/uL Hgb (11.4-16.0) gm/dL Hct (34.0-46.0) % MCV (80.0-100.0) fL MCH (25.0-35.0) pg MCHC (31.0-37.0) g/dL RDW (11.5-15.5) % Plt Count (150-450) k/uL MPV Neutrophils % % Lymphocytes % % Monocytes % % Eosinophils % % Basophils % % Neutrophils # (1.3-7.7) k/uL Lymphocytes # (1.0-4.8) k/uL Monocytes # (0-1.0) k/uL Eosinophils # (0-0.7) k/uL Basophils # (0-0.2) k/uL PT (9.0-12.0) sec INR (<1.2) APTT (22.0-30.0) sec Sodium 141 (137-145) mmol/L Potassium 3.6 (3.5-5.1) mmol/L Chloride 103 (98-107) mmol/L Carbon Dioxide 28 (22-30) mmol/L Anion Gap 10 mmol/L BUN 24 H (7-17) mg/dL Creatinine 0.84 (0.52-1.04) mg/dL Est GFR (CKD-EPI)AfAm 79 (>60 ml/min/1.73 sqM) Est GFR (CKD-EPI)NonAf 69 (>60 ml/min/1.73 sqM) Glucose 30 L* (74-99) mg/dL POC Glucose (mg/dL) (75-99) mg/dL POC Glu Weaving Supervisor ID Plasma Lactic Acid Chucky 1.3 (0.7-2.0) mmol/L Calcium 10.2 (8.4-10.2) mg/dL Phosphorus 3.8 (2.5-4.5) mg/dL Magnesium 2.0 (1.6-2.3) mg/dL Total Bilirubin 0.5 (0.2-1.3) mg/dL AST 57 H (14-36) U/L ALT 40 H (4-34) U/L Alkaline Phosphatase 95 (38-126) U/L Troponin I <0.012 (0.000-0.034) ng/mL Total Protein 8.5 H (6.3-8.2) g/dL Albumin 4.7 (3.5-5.0) g/dL 03/14/21 03/14/21 03/14/21 Range/Units 22:07 22:26 22:45 WBC (3.8-10.6) k/uL RBC (3.80-5.40) m/uL Hgb (11.4-16.0) gm/dL Hct (34.0-46.0) % MCV (80.0-100.0) fL MCH (25.0-35.0) pg MCHC (31.0-37.0) g/dL RDW (11.5-15.5) % Plt Count (150-450) k/uL MPV Neutrophils % % Lymphocytes % % Monocytes % % Eosinophils % % Basophils % % Neutrophils # (1.3-7.7) k/uL Lymphocytes # (1.0-4.8) k/uL Monocytes # (0-1.0) k/uL Eosinophils # (0-0.7) k/uL Basophils # (0-0.2) k/uL PT (9.0-12.0) sec INR (<1.2) APTT (22.0-30.0) sec Sodium (137-145) mmol/L Potassium (3.5-5.1) mmol/L Chloride (98-107) mmol/L Carbon Dioxide (22-30) mmol/L Anion Gap mmol/L BUN (7-17) mg/dL Creatinine (0.52-1.04) mg/dL Est GFR (CKD-EPI)AfAm (>60 ml/min/1.73 sqM) Est GFR (CKD-EPI)NonAf (>60 ml/min/1.73 sqM) Glucose (74-99) mg/dL POC Glucose (mg/dL) 106 H 94 79 (75-99) mg/dL POC Glu Weaving Supervisor Ayana Fitzgerald, Ayana Zelaya Plasma Lactic Acid Chucky (0.7-2.0) mmol/L Calcium (8.4-10.2) mg/dL Phosphorus (2.5-4.5) mg/dL Magnesium (1.6-2.3) mg/dL Total Bilirubin (0.2-1.3) mg/dL AST (14-36) U/L ALT (4-34) U/L Alkaline Phosphatase (38-126) U/L Troponin I (0.000-0.034) ng/mL Total Protein (6.3-8.2) g/dL Albumin (3.5-5.0) g/dL - EKG Data -: EKG Interpreted by Me (EKG is sinus rhythm 61 OK 136 QRS 124 QTc 479) - Radiology Data Radiology results: report reviewed (CT brain is negative for acute disease), image reviewed Critical Care Time Critical Care Time: Yes Total Critical Care Time: 31 Disposition Clinical Impression: Insulin dependent type 2 diabetes mellitus, Altered mental status, Generalized weakness, Hypoglycemia Narrative: Recurrent AMS w Hypoglycemia Disposition: ADMITTED IP TO THIS [facility] Condition: Fair Is patient prescribed a controlled substance at d/c from ED?: No
[2021-03-14 22:27] LABS: Glucose,Whole Blood 94 mg/dL (75-99)
[2021-03-14 22:35] LABS: INR 0.9 (<1.2); Partial Thromboplastin Time 23.8 sec (22.0-30.0); Prothrombin Time 10.1 sec (9.0-12.0)
[2021-03-14 22:39] LABS: Albumin 4.7 g/dL (3.5-5.0); Calcium 10.2 mg/dL (8.4-10.2); Phosphorus 3.8 mg/dL (2.5-4.5); Potassium 3.6 mmol/L (3.5-5.1); Total Bilirubin 0.5 mg/dL (0.2-1.3); Total Protein 8.5 g/dL (6.3-8.2)
[2021-03-14 22:46] LABS: Glucose,Whole Blood 79 mg/dL (75-99)
--- NOTE | 2021-03-14 23:13 | CT ---
EXAMINATION TYPE: CT brain wo con DATE OF EXAM: 03/14/2021 COMPARISON: 12/31/2020 HISTORY: AMS CT DLP: 1092.40 mGycm Automated exposure control for dose reduction was used. Ventricles have fairly normal size. There is patchy hypodensity in the periventricular white matter. There is no mass effect nor midline shift. There is no evidence of intracranial hemorrhage. Calvarium is intact. IMPRESSION: Mild atrophy. White matter patchy hypodensity consistent with chronic small vessel ischemia. No barrera e compared to old exam. No acute abnormality.
[2021-03-14] MEDS ORDERED: NALOXONE 0.4 MG/ML 1 ML VIAL IV PRN (23:18)
[2021-03-14] MEDS ORDERED: ONDANSETRON 4 MG/2 ML VIAL IVP PRN (23:18)
[2021-03-14 23:26] LABS: Glucose,Whole Blood 85 mg/dL (75-99)
[2021-03-15 00:42] LABS: Glucose,Whole Blood 148 mg/dL (75-99)
[2021-03-15 02:56] LABS: Glucose,Whole Blood 173 mg/dL (75-99)
[2021-03-15 04:53] LABS: Glucose,Whole Blood 226 mg/dL (75-99)
[2021-03-15 06:07] LABS: Glucose,Whole Blood 218 mg/dL (75-99)
[2021-03-15 06:35] VITALS: TEMP 97.9
[2021-03-15 07:30] LABS: Glucose,Whole Blood 197 mg/dL (75-99)
[2021-03-15] MEDS: INSULIN ASPART (NovoLOG) 100 UNIT/ML VIAL SQ SCH ×2 (07:47→16:37)
[2021-03-15 09:05] LABS: Basophils # (A) 0.1 k/uL (0-0.2); Basophils % (A) 1 %; Eosinophils # (A) 0.3 k/uL (0-0.7); Eosinophils % (A) 4 %; HCT 37.9 % (34.0-46.0); HGB 12.5 gm/dL (11.4-16.0); Lymphocytes # (A) 1.3 k/uL (1.0-4.8); Lymphocytes % (A) 17 %; MCH 32.7 pg (25.0-35.0); MCV 99.2 fL (80.0-100.0); Mean Platelet Volume 7.6; Monocytes # (A) 0.4 k/uL (0-1.0); Monocytes % (A) 4 %; Neutrophils # (A) 5.9 k/uL (1.3-7.7); Neutrophils % (A) 74 %; Platelet Count 291 k/uL (150-450); RBC 3.82 m/uL (3.80-5.40)
[2021-03-15 09:13] LABS: ALT 28 U/L (4-34); AST 44 U/L (14-36); African American GFR (CKD) >90 (>60 ml/min/1.73 sqM); Albumin 3.7 g/dL (3.5-5.0); Alkaline Phosphatase 84 U/L (38-126); Anion Gap 7 mmol/L; Blood Urea Nitrogen 22 mg/dL (7-17); Calcium 9.3 mg/dL (8.4-10.2); Carbon Dioxide 27 mmol/L (22-30); Chloride 103 mmol/L (98-107); Glucose 232 mg/dL (74-99); Magnesium 1.8 mg/dL (1.6-2.3); Non-African American GFR(CKD) 85 (>60 ml/min/1.73 sqM); Phosphorus 3.7 mg/dL (2.5-4.5); Potassium 4.1 mmol/L (3.5-5.1); Sodium 137 mmol/L (137-145); Total Bilirubin 0.4 mg/dL (0.2-1.3); Total Protein 6.5 g/dL (6.3-8.2)
[2021-03-15 09:40] LABS: Glucose,Whole Blood 140 mg/dL (75-99)
[2021-03-15 11:49] LABS: Glucose,Whole Blood 166 mg/dL (75-99)
[2021-03-15 16:39] LABS: Glucose,Whole Blood 345 mg/dL (75-99)
--- NOTE | 2021-03-15 16:53 | P.HPIM ---
History of Present Illness H&P Date: 03/15/21 Mirian Briceno, is a 75-year-old female who presented to [facility] emergency room with a chief complaint of altered mental status and confusion, state that her sugar was 106, she had 12 units of NovoLog and ate her meal subsequence reveals they are went out to a store, patient wear walking and she was getting disoriented and confused, she was brought into emergency room glucose level was down to 30, she received 1 amp of D50 and glucose went up to 150 however it went down to 30 again at that time decision was made to proceed with admitting patient to medical floor she was kept on D5W drip and her insulin were held. She was evaluated in the emergency room vital examination on presentation revealed a temperature of 97.4 pulse 68 respiration 18 blood pressure 158/78 pu lse ox 97% on room air Laboratory data revealed a white blood count of 9.7 hemoglobin 13.3 platelet count 327 sodium 141 potassium 3.6 chloride 103 CO2 28 BUN 24 creatinine 0.84 glucose was down to 30 AST 57 ALT 40 coronavirus PCR was negative Testing in the emergency room revealed computed tomography scan of the brain done in the emergency room without contrast revealed mild atrophy and white mat ter patchy hypodensity consistent with chronic small vessel ischemia no change to old exam no acute abnormality. EKG revealed normal sinus rhythm with left bundle branch block Patient was admitted to medical floor for further evaluation and treatment Past medical history is significant for atrial fibrillation maintained on Eliquis, history of hypertension, history of hyperlipidemia, history of insulin- dependent diabetes mellitus, history of rheumatoid arthritis, history of hypothyroidism and history of fibromyalgia On review of systems at this time patient is alert and oriented 3 in no appar ent distress glucose level is up to 200 and patient is denying any complaints there is no fever or chills no headache or dizziness no chest pain no shortness of breath no cough no nausea or vomiting no abdominal pain no diarrhea no blood in the stools no burning with urination no frequency or urgency and no hematuria Past Medical History Past Medical History: Atrial Fibrillation, Chest Pain / Angina, Diabetes Mellitus, Eye Disorder, Fibromyalgia, GERD/Reflux, Hyperlipidemia, Hypertension, Osteoarthritis (OA), Pneumonia, Renal Disease, Rheumatoid Arthritis (RA), Thyroid Disorder Additional Past Medical History / Comment(s): Mild glaucoma stabe. BURSITIS, hx falls, past chronic sacral wound, occ Vertigo, anemia, Constipation History of Any Multi-Drug Resistant Organisms: None Reported Past Surgical History: Adenoidectomy, Cholecystectomy, Hysterectomy, Joint Replacement, Orthopedic Surgery, Tonsillectomy Additional Past Surgical History / Comment(s): 3 RIGHT KNEE SURGERIES AND 2 LEFT, TOTAL KNEE REPLACEMENTS SURGERIES. D&C'S. Lap Ignacio-en-Y gastric [place] [address] Zambrano , total hysterectomy for fibroid tumor, tubal ligation Past Anesthesia/Blood Transfusion Reactions: Motion Sickness Additional Past Anesthesia/Blood Transfusion Reaction / Comment(s): Pt received blood in 2013 without reaction. Past Psychological History: No Psychological Hx Reported Smoking Status: Never smoker Past Alcohol Use History: Unable to Obtain Past Drug Use History: Unable to Obtain - Past Family History Mother Family Medical History: Coronary Artery Disease (CAD) Additional Family Medical History / Comment(s): age 90 of heart failure. Had hx of Parkinsons and Narcolepsy Father Family Medical History: Coronary Artery Disease (CAD) Additional Family Medical History / Comment(s): age 73 of massive heart attack Medications and Allergies Home Medications Medication Instructions Recorded Confirmed Type Bumetanide [BUMEX] 1 mg PO TID 10/02/14 03/15/21 History Pantoprazole Sodium 40 mg PO AC-BRKFST 10/02/14 03/15/21 History DULoxetine HCL [Cymbalta] 60 mg PO HS 04/16/15 03/15/21 History traZODone HCL [Desyrel] 50 mg PO HS 06/06/15 03/15/21 History Gabapentin [Neurontin] 100 mg PO BID-W/MEALS 12/16/16 03/15/21 History Apixaban [Eliquis] 5 mg PO BID-W/MEALS 09/27/18 03/15/21 History Pravastatin Sodium [Pravachol] 20 mg PO W/SUPPER 09/27/18 03/15/21 History carvediloL [Coreg] 6.25 mg PO BID-W/MEALS 05/01/19 03/15/21 History Insulin Detemir [Levemir Flextouch 12 units SQ W/SUPPER 08/06/19 03/15/21 History Pen] HYDROcodone/APAP 5-325MG [[place] 1 tab PO BID 12/31/20 03/15/21 History 5-325] Insulin Aspart [NovoLOG Flexpen] 12 units SQ AC-TID 12/31/20 03/15/21 History Levothyroxine Sodium [Synthroid] 125 mcg PO AC-BRKFST 12/31/20 03/15/21 History Milk Thistle 250mg 250 mg PO BID-W/MEALS 12/31/20 03/15/21 History amLODIPine [Norvasc] 5 mg PO BID-W/MEALS 12/31/20 03/15/21 History hydrALAZINE HCL [Apresoline] 10 mg PO BID-W/MEALS 12/31/20 03/15/21 History Aspirin 81 mg PO W/LUNCH 03/15/21 03/15/21 History Cholecalciferol (Vitamin D3) 125 mcg PO HS 03/15/21 03/15/21 History [Vitamin D3 (125 MCG = 5,000 IU)] Cinnamon Bark [Cinnamon] 500 mg PO BID@0700,1200 03/15/21 03/15/21 History Cyanocobalamin (Vitamin B-12) 500 mcg PO AC-BRKFST 03/15/21 03/15/21 History [Vitamin B-12] Allergies Allergy/AdvReac Type Severity Reaction Status Date / Time adhesive tape Allergy Rash/Hives Verified 03/15/21 09:23 triamcinolone Allergy Unknown Verified 03/15/21 09:23 venom-honey bee Allergy Swelling Verified 03/15/21 09:23 caffeine AdvReac Nausea & Verified 03/15/21 09:23 Vomiting & Diarrhea hydrocodone bitartrate AdvReac Itching Verified 03/15/21 09:23 [From Lorcet (hydrocodone)] Penicillins AdvReac Nausea & Verified 03/15/21 09:23 Vomiting & Diarrhea tramadol HCl [From Ultram] AdvReac Itching Verified 03/15/21 09:23 Physical Exam Vitals: Vital Signs Temp Pulse Resp BP Pulse Ox 03/15/21 07:43 18 03/15/21 06:30 97.9 F 74 18 135/72 98 03/15/21 04:45 71 18 152/84 99 03/14/21 23:58 66 18 115/59 97 03/14/21 21:52 97.4 F L 68 18 158/78 97 Intake and Output 03/14/21 03/15/2103/15/21 22:59 06:59 14:59 Other: Weight 113.398 kg In general patient is alert and oriented x 3 in no distress HEENT head normocephalic and atraumatic Neck is supple no JVD no goiter no lymphadenopathy no carotid bruit Chest examination is clear to auscultation no crackles no wheezing Cardiac exam reveals regular heart sounds S1 and S2 no gallops no murmurs Abdomen is soft nontender no organomegaly with normal bowel sounds Extremity exam reveals no edema no cyanosis or clubbing Neurological examination reveals no gross focal deficits Results CBC & Chem 7: 03/15/21 08:23 03/15/21 08:23 Labs: Abnormal Lab Results - Last 24 Hours (Table) 03/14/21 03/14/21 03/14/21 Range/Units 21:44 22:00 22:00 Eosinophils # 0.8 H (0-0.7) k/uL BUN 24 H (7-17) mg/dL Glucose 30 L* (74-99) mg/dL POC Glucose (mg/dL) 185 H (75-99) mg/dL AST 57 H (14-36) U/L ALT 40 H (4-34) U/L Total Protein 8.5 H (6.3-8.2) g/dL 03/14/21 03/15/21 03/15/21 Range/Units 22:07 00:40 02:55 Eosinophils # (0-0.7) k/uL BUN (7-17) mg/dL Glucose (74-99) mg/dL POC Glucose (mg/dL) 106 H 148 H 173 H (75-99) mg/dL AST (14-36) U/L ALT (4-34) U/L Total Protein (6.3-8.2) g/dL 03/15/21 03/15/21 03/15/21 Range/Units 04:51 06:05 07:29 Eosinophils # (0-0.7) k/uL BUN (7-17) mg/dL Glucose (74-99) mg/dL POC Glucose (mg/dL) 226 H 218 H 197 H (75-99) mg/dL AST (14-36) U/L ALT (4-34) U/L Total Protein (6.3-8.2) g/dL Assessment and Plan Plan: Episodes of hypoglycemia Altered mental status Underlying history of hypertension Underlying history of insulin-dependent diabetes mellitus Underlying history of hyperlipidemia Underlying history of hypothyroidism Underlying history of atrial fibrillation maintained on Eliquis Underlying history of rheumatoid arthritis Underlying history of osteoarthritis and fibromyalgia At this time patient is admitted to medical floor Home insulin were held Patient was started on D5W drip Will monitor glucose closely Home medications otherwise were reviewed and reordered
--- NOTE | 2021-03-15 16:56 | P.DS ---
Providers Date of admission: 03/14/21 23:18 Expected date of discharge: 03/15/21 Attending physician: Taina Vergara Primary care physician: Taina Vergara [facility] Course: Diagnosis on discharge: Episodes of hypoglycemia Altered mental status Underlying history of hypertension Underlying history of insulin-dependent diabetes mellitus Underlying history of hyperlipidemia Underlying history of hypothyroidism Underlying history of atrial fibrillation maintained on Eliquis Underlying history of rheumatoid arthritis Underlying history of osteoarthritis and fibromyalgia Hospital course: Mirian Briceno, is a 75-year-old female who presented to [facility] emergency room with a chief complaint of altered mental status and confusion, state that her sugar was 106, she had 12 units of NovoLog and ate her meal subsequence reveals they are went out to a store, patient wear walking and she was getting disoriented and confused, she was brought into e mergency room glucose level was down to 30, she received 1 amp of D50 and glucose went up to 150 however it went down to 30 again at that time decision was made to proceed with admitting patient to medical floor she was kept on D5W drip and her insulin were held. She was evaluated in the emergency room vital examination on presentation revealed a temperature of 97.4 pulse 68 respiration 18 blood pressure 158/78 pulse ox 97% on room air Laboratory data revealed a white blood count of 9.7 hemoglobin 13.3 platelet count 327 sodium 141 potassium 3.6 chloride 103 CO2 28 BUN 24 creatinine 0.84 glucose was down to 30 AST 57 ALT 40 coronavirus PCR was negative Testing in the emergency room revealed computed tomography scan of the brain done in the emergency room without contrast revealed mild atrophy and white matter patchy hypodensity consistent with chronic small vessel ischemia no change to old exam no acute abnormality. EKG revealed normal sinus rhythm with left bundle branch block Patient was admitted to medical floor for further evaluation and treatment Past medical history is significant for atrial fibrillation maintained on Eliquis, history of hypertension, history of hyperlipidemia, history of insulin- dependent diabetes mellitus, history of rheumatoid arthritis, history of hypothyroidism and history of fibromyalgia On review of systems at this time patient is alert and oriented 3 in no apparent distress glucose level is up to 200 and patient is denying any complaints there is no fever or chills no headache or dizziness no chest pain no shortness of breath no cough no nausea or vomiting no abdominal pain no diarrhea no blood in the stools no burning with urination no frequency or urgency and no hematuria On 03/15/2021 patient was seen and examined on the medical floor she is alert and oriented 3 in no apparent distress there is no fever or chills no headache or dizziness no chest pain no shortness of breath no cough no nausea or vomiting no abdominal pain no diarrhea and no urinary symptoms. Patient is feeling well at this time and is asking about going home, her glucose level has been consistently up between 150-250, at this point we are going to increase her dose of Levemir from 12-15 units once daily at bedtime and we are going to change her NovoLog to a sliding scale before meals. A copy of a sliding scale was provided to her and her and was explained in details, she will be followed in our office within 1-2 days, she was told to bring in old glucose numbers with her when she comes to the office, otherwise she will continue on her home medications as prior to admission. Patient Condition at Discharge: Fair Plan - Discharge Summary New Discharge Prescriptions: New Insulin Detemir (Levemir) [Levemir] 15 unit SQ HS #10 ml Insulin Aspart Scale Rx Form [NovoLOG Outpatient Scale Rx Form] 1 each MISCELLANE DIRECTED 30 Days #1 each Continue Bumetanide [BUMEX] 1 mg PO TID Pantoprazole Sodium 40 mg PO AC-BRKFST DULoxetine HCL [Cymbalta] 60 mg PO HS traZODone HCL [Desyrel] 50 mg PO HS Gabapentin [Neurontin] 100 mg PO BID-W/MEALS Apixaban [Eliquis] 5 mg PO BID-W/MEALS Pravastatin Sodium [Pravachol] 20 mg PO W/SUPPER carvediloL [Coreg] 6.25 mg PO BID-W/MEALS HYDROcodone/APAP 5-325MG [[place] 5-325] 1 tab PO BID amLODIPine [Norvasc] 5 mg PO BID-W/MEALS Milk Thistle 250mg 250 mg PO BID-W/MEALS Aspirin 81 mg PO W/LUNCH Levothyroxine Sodium [Synthroid] 125 mcg PO AC-BRKFST hydrALAZINE HCL [Apresoline] 10 mg PO BID-W/MEALS Cholecalciferol (Vitamin D3) [Vitamin D3 (125 MCG = 5,000 IU)] 125 mcg PO HS Cinnamon Bark [Cinnamon] 500 mg PO BID@0700,1200 Cyanocobalamin (Vitamin B-12) [Vitamin B-12] 500 mcg PO AC-BRKFST Discontinued Insulin Detemir [Levemir Flextouch Pen] 12 units SQ W/SUPPER Insulin Aspart [NovoLOG Flexpen] 12 units SQ AC-TID Discharge Medication List Bumetanide [BUMEX] 1 mg PO TID 10/02/14 [History] Pantoprazole Sodium 40 mg PO AC-BRKFST 10/02/14 [History] DULoxetine HCL [Cymbalta] 60 mg PO HS 04/16/15 [History] traZODone HCL [Desyrel] 50 mg PO HS 06/06/15 [History] Gabapentin [Neurontin] 100 mg PO BID-W/MEALS 12/16/16 [History] Apixaban [Eliquis] 5 mg PO BID-W/MEALS 09/27/18 [History] Pravastatin Sodium [Pravachol] 20 mg PO W/SUPPER 09/27/18 [History] carvediloL [Coreg] 6.25 mg PO BID-W/MEALS 05/01/19 [History] HYDROcodone/APAP 5-325MG [[place] 5-325] 1 tab PO BID 12/31/20 [History] Levothyroxine Sodium [Synthroid] 125 mcg PO AC-BRKFST 12/31/20 [History] Milk Thistle 250mg 250 mg PO BID-W/MEALS 12/31/20 [History] amLODIPine [Norvasc] 5 mg PO BID-W/MEALS 12/31/20 [History] hydrALAZINE HCL [Apresoline] 10 mg PO BID-W/MEALS 12/31/20 [History] Aspirin 81 mg PO W/LUNCH 03/15/21 [History] Cholecalciferol (Vitamin D3) [Vitamin D3 (125 MCG = 5,000 IU)] 125 mcg PO HS 03/15/21 [History] Cinnamon Bark [Cinnamon] 500 mg PO BID@0700,1200 03/15/21 [History] Cyanocobalamin (Vitamin B-12) [Vitamin B-12] 500 mcg PO AC-BRKFST 03/15/21 [History] Insulin Aspart Scale Rx Form [NovoLOG Outpatient Scale Rx Form] 1 each MISCELLANE DIRECTED 30 Days #1 each 03/15/21 [Rx] Insulin Detemir (Levemir) [Levemir] 15 unit SQ HS #10 ml 03/15/21 [Rx] Follow up Appointment(s)/Referral(s): Taina Vergara MD [Primary Care Provider] - 1-2 days
[2021-03-15 17:12] VITALS: BP 170/80; PULSE 87
[2021-03-15] MEDS ORDERED: hydrALAZINE HCL 10 MG TAB PO SCH (17:30)
[2021-03-15] MEDS ORDERED: amLODIPine 5 MG TAB PO SCH (17:30)
[2021-03-15] MEDS ORDERED: PRAVASTATIN SODIUM 20 MG TAB PO SCH (17:30)
[2021-03-15] MEDS ORDERED: APIXABAN 5 MG TAB PO SCH (17:30)
[2021-03-15] MEDS ORDERED: MILK THISTLE PO SCH (17:30)
[2021-03-15] MEDS ORDERED: carvediloL 6.25 MG TAB PO SCH (17:30)
[2021-03-15] MEDS ORDERED: GABAPENTIN 100 MG CAP PO SCH (17:30)
[2021-03-15] MEDS ORDERED: traZODone HCL 50 MG TAB PO SCH (21:00)
[2021-03-15] MEDS ORDERED: CHOLECALCIFEROL 25 MCG (1000 IU) TABLET PO SCH (21:00)
[2021-03-15] MEDS ORDERED: DULoxetine HCL 60 MG CAPSULE.DR PO SCH (21:00)
[2021-03-15] MEDS ORDERED: HYDROcodone/APAP 5-325MG 1 EACH TAB PO SCH (21:00)
[2021-03-15] MEDS ORDERED: BUMETANIDE 1 MG TAB PO SCH (22:00)
[2021-03-16] MEDS ORDERED: LEVOTHYROXINE 125 MCG TAB PO SCH (06:30)
[2021-03-16] MEDS ORDERED: NON FORMULARY DRUG (Cinnamon Bark [Cinnamon] 500 MG Capsule) PO SCH (07:00)
[2021-03-16] MEDS ORDERED: CYANOCOBALAMIN 500 MCG TAB PO SCH (07:30)
[2021-03-16] MEDS ORDERED: PANTOPRAZOLE 40 MG TABLET PO SCH (07:30)
[2021-03-16 11:07] LABS: Glucose,Whole Blood 32 mg/dL (75-99)
[2021-03-16] MEDS ORDERED: ASPIRIN 81 MG PO SCH (12:30)
== END 2021-03-15 17:11 | disposition home or self-care (01) ==
LOC: EC 21:30 → 6NMEDSUR 23:18
PROVIDERS: ADMIT Internal Medicine; ATTEND Internal Medicine
DX: E11.649 Type 2 diabetes mellitus with hypoglycemia without coma (principal); I10 Essential (primary) hypertension; E78.5 Hyperlipidemia, unspecified; Z20.822 Contact with and (suspected) exposure to COVID-19; E03.9 Hypothyroidism, unspecified; I48.91 Unspecified atrial fibrillation; M06.9 Rheumatoid arthritis, unspecified; I44.7 Left bundle-branch block, unspecified; M19.90 Unspecified osteoarthritis, unspecified site; K21.9 Gastro-esophageal reflux disease without esophagitis; N28.9 Disorder of kidney and ureter, unspecified; M79.7 Fibromyalgia; H40.9 Unspecified glaucoma; Z79.899 Other long term (current) drug therapy; Z79.890 Hormone replacement therapy; Z79.82 Long term (current) use of aspirin; Z79.4 Long term (current) use of insulin; Z79.01 Long term (current) use of anticoagulants; Z91.048 Other nonmedicinal substance allergy status; Z88.0 Allergy status to penicillin; Z88.5 Allergy status to narcotic agent; Z91.030 Bee allergy status; Z88.1 Allergy status to other antibiotic agents; Z96.652 Presence of left artificial knee joint; Z91.018 Allergy to other foods; Z90.710 Acquired absence of both cervix and uterus; Z98.84 Bariatric surgery status; Z87.01 Personal history of pneumonia (recurrent); Z90.49 Acquired absence of other specified parts of digestive tract; Z82.0 Family history of epilepsy and other diseases of the nervous system; Z82.49 Family history of ischemic heart disease and other diseases of the circulatory system
CPT/HCPCS: 99291; 96365; 96366; 96375; 36415; 93005; 80053 ×2; 83605; 83735 ×2; 84100 ×2; 84484 ×2; 85025 ×2; 85610; 85730; 87635; 70450; G0378; 99285

== ENCOUNTER → 2021-03-18 | Outpatient (CLI) | payer MEDICARE, BC ==
--- NOTE | 2021-03-20 09:48 | MM ---
Reason for exam: screening (asymptomatic). Last mammogram was performed 1 year and 1 month ago. History: Patient is postmenopausal. MG discontinued stereo core RT of the right breast, October 14, 2014. Benign left mammotome panel of the left breast, April 24, 2007. Took estrogen for 21 years beginning at age 42. Physical Findings: A clinical breast exam by your physician is recommended on an annual basis and results should be correlated with mammographic findings. MG 3D Screening Mammo W/Cad Bilateral CC and MLO view(s) were taken. Prior study comparison: February 25, 2020, bilateral MG 3d screening mammo w/cad. August 16, 2018, bilateral MG 3d screening mammo w/cad. June 17, 2017, bilateral MG 3d screening mammo w/cad. The breast tissue is heterogeneously dense. This may lower the sensitivity of mammography. Finding: There are typically benign vascular, dystrophic, linear calcifications in both breasts. There is no discrete abnormality. ASSESSMENT: Benign, BI-RAD 2 RECOMMENDATION: Routine screening mammogram of both breasts in 1 year.
== END | disposition home or self-care (01) ==
LOC: RADMAMWWP 13:16
PROVIDERS: ATTEND Internal Medicine
DX: Z12.31 Encounter for screening mammogram for malignant neoplasm of breast (principal); Z78.0 Asymptomatic menopausal state
CPT/HCPCS: 77063; 77067

== ENCOUNTER → 2021-05-06 | Outpatient (CLI) | payer MEDICARE, BC ==
[2021-05-06 19:13] LABS: ALT 30 U/L (8-44); AST 31 U/L (13-35); African American GFR (CKD) 70.1 (60.0-200.0); Albumin 4.2 g/dL (3.8-4.9); Albumin/Globulin Ratio 1.61 (1.60-3.17); Alkaline Phosphatase 111 U/L (41-126); BUN/Creat Ratio 37.81 Ratio (12.00-20.00); Blood Urea Nitrogen 35.2 mg/dL (9.0-27.0); Calcium 9.8 mg/dL (8.7-10.3); Carbon Dioxide 27.4 mmol/L (20.0-27.5); Chloride 101 mmol/L (96-109); Chol/HDL Ratio 2.26 Ratio; Globulin 2.6 g/dL (1.6-3.3); Glucose 190 mg/dL (70-110); LDL Cholesterol,Calculated 86.4 mg/dL (0.0-131.0); Non-African American GFR(CKD) 60.5 (60.0-200.0); Potassium 4.8 mmol/L (3.5-5.5); Sodium 139 mmol/L (135-145); Total Protein 6.8 g/dL (6.2-8.2)
[2021-05-06 23:18] LABS: Urine Creatinine 93.3 mg/dL (28.0-217.0)
== END | disposition home or self-care (01) ==
LOC: LABWHC1 11:34
PROVIDERS: ATTEND Internal Medicine Endocrinology, Diabetes & Metabolism
DX: E11.65 Type 2 diabetes mellitus with hyperglycemia (principal)
CPT/HCPCS: 36415; 80053; 80061; 82043; 82570; 83036; 84443

== ENCOUNTER 2021-07-27 11:15 | Inpatient (IN) | payer MEDICARE, BC ==
--- NOTE | 2021-07-27 11:43 | ED ---
General Adult HPI - General Chief complaint: Altered Mental Status Stated complaint: altered Time Seen by Provider: 07/27/21 11:30 Source: EMS Mode of arrival: EMS Limitations: altered mental status - History of Present Illness Initial comments: Dictation was produced using [employer] dictation software. please excuse any grammatical, word or spelling errors. Chief Complaint: 76-year-old female with multiple comorbidities presents emerg ency department for altered mental status History of Present Illness: 76-year-old female she was brought in by EMS. Patient allegedly lives home by herself. Daughter called EMS after patient was discovered to be altered. Patient unable to provide history of present illness at this time. EMS reports that patient had the smell of malodorous urine concerning for UTI. Patient confused and she denies any symptoms. It is unclear what patient's baseline mental status is. The ROS documented in this emergency department record has been reviewed and confirmed by me. Those systems with pertinent positive or negative responses have been documented in the HPI. All other systems are other negative and/or noncontributory. PHYSICAL EXAM: General Impression: Alert and oriented x1/4, not in acute distress, cooperative, yelling at me during the physical exam HEENT: Normocephalic atraumatic, extra-ocular movements intact, pupils equal and reactive to light bilaterally, mucous membranes moist. Cardiovascular: Heart regular rate and rhythm Chest: Able to complete full sentences, no retractions, no tachypnea Abdomen: abdomen soft, non-tender, non-distended, no organomegaly Musculoskeletal: Pulses present and equal in all extremities, no peripheral edema Motor: no focal deficits noted Neurological: CN II-XII grossly intact, no focal motor or sensory deficits noted, no Kernig's, no Brudzinski, negative lhermittes Skin: Intact with no visualized rashes Psych: Normal affect and mood ED course: 76-year-old female presents emergency department for altered mental status. Patient has not focal findings neurologically. Unclear when patient's symptoms began. She allegedly lives by herself. Vital signs upon arrival are within acceptable limits. Laboratory evaluation obtained. Mild leukocytosis of 21.5. Coag panel is negative. Metabolic panel shows lactic acidosis 2.9. Rest metabolic panel within acceptable limits. Urinalysis shows 14 white blood cells. Computed tomography scan of brain is unremarkable. Chest x-ray shows no acute infiltrates. Patient reevaluated bedside still confused. Clinical presentation consistent with acute delirium. Suspect that her delirium is secondary to urinary tract infection. Patient started on cefepime. She is diabetic. Concern of pseudomonas infection. Pending urine cultures. Patient will be admitted to Dr. Vergara. EKG interpretation: Ventricular rate 86, sinus rhythm,. 155, QRS 126, QTC 410. No MD prolongation, no QTC prolongation, no ST or T-wave changes noted. EKG compared to June 24 2021 showing no changes. Overall, this EKG is unremarkable - Related Data Home Medications Medication Instructions Recorded Confirmed Bumetanide [BUMEX] 1 mg PO BID-W/MEALS 10/02/14 07/27/21 Pantoprazole Sodium 40 mg PO W/BRKFST 10/02/14 07/27/21 DULoxetine HCL [Cymbalta] 60 mg PO HS 04/16/15 07/27/21 traZODone HCL [Desyrel] 50 mg PO HS 06/06/15 07/27/21 Gabapentin [Neurontin] 100 mg PO BID-W/MEALS 12/16/16 07/27/21 Apixaban [Eliquis] 5 mg PO BID-W/MEALS 09/27/18 07/27/21 Pravastatin Sodium [Pravachol] 20 mg PO W/SUPPER 09/27/18 07/27/21 carvediloL [Coreg] 6.25 mg PO BID-W/MEALS 05/01/19 07/27/21 HYDROcodone/APAP 5-325MG [[place] 1 tab PO BID-W/MEALS 12/31/20 07/27/21 5-325] Levothyroxine Sodium [Synthroid] 125 mcg PO DAILY@0800 12/31/20 07/27/21 Milk Thistle 250mg 250 mg PO BID-W/MEALS 12/31/20 07/27/21 amLODIPine [Norvasc] 5 mg PO BID-W/MEALS 12/31/20 07/27/21 hydrALAZINE HCL [Apresoline] 10 mg PO BID-W/MEALS 12/31/20 07/27/21 Aspirin 81 mg PO W/LUNCH 03/15/21 07/27/21 Cholecalciferol (Vitamin D3) 125 mcg PO HS 03/15/21 07/27/21 [Vitamin D3 (125 MCG = 5,000 IU)] Cyanocobalamin (Vitamin B-12) 500 mcg PO DAILY@0800 03/15/21 07/27/21 [Vitamin B-12] Acetaminophen [Tylenol] 500 mg PO TID PRN 06/24/21 07/27/21 Cinnamon 250mg 250 mg PO BID-W/MEALS 06/24/21 07/27/21 Diclofenac Sodium Gel [Voltaren 2 gm TOPICAL DAILY PRN 06/24/21 07/27/21 Gel] Insulin Aspart [NovoLOG Flexpen] 12 units SQ BID-W/MEALS 06/24/21 07/27/21 Insulin Detemir [Levemir Flextouch 14 units SQ HS 06/24/21 07/27/21 Pen] Latanoprost/Pf [Latanoprost 0.005% 1 drop BOTH EYES HS 06/24/21 07/27/21 Eye Drop] calcitrioL [Rocaltrol] 0.25 mcg PO BHATTI 06/24/21 07/27/21 Allergies Allergy/AdvReac Type Severity Reaction Status Date / Time adhesive tape Allergy Rash/Hives Verified 07/27/21 12:58 triamcinolone Allergy Unknown Verified 07/27/21 12:58 venom-honey bee Allergy Swelling Verified 07/27/21 12:58 caffeine AdvReac Nausea & Verified 07/27/21 12:58 Vomiting & Diarrhea hydrocodone bitartrate AdvReac Itching Verified 07/27/21 12:58 [From Lorcet (hydrocodone)] Penicillins AdvReac Nausea & Verified 07/27/21 12:58 Vomiting & Diarrhea tramadol HCl [From Ultram] AdvReac Itching Verified 07/27/21 12:58 Review of Systems ROS Statement: Those systems with pertinent positive or pertinent negative responses have been documented in the HPI. ROS Other: All systems not noted in ROS Statement are negative. Past Medical History Past Medical History: Atrial Fibrillation, Chest Pain / Angina, Diabetes Mellitus, Eye Disorder, Fibromyalgia, GERD/Reflux, Hyperlipidemia, Hypertension, Osteoarthritis (OA), Pneumonia, Renal Disease, Rheumatoid Arthritis (RA), Thyroid Disorder Additional Past Medical History / Comment(s): Mild glaucoma stabe. BURSITIS, hx falls, past chronic sacral wound, occ Vertigo, anemia, Constipation History of Any Multi-Drug Resistant Organisms: None Reported Past Surgical History: Adenoidectomy, Cholecystectomy, Hysterectomy, Joint Replacement, Orthopedic Surgery, Tonsillectomy Additional Past Surgical History / Comment(s): 3 RIGHT KNEE SURGERIES AND 2 LEFT, TOTAL KNEE REPLACEMENTS SURGERIES. D&C'S. Lap Ignacio-en-Y gastric bypass [place] [address] Zambrano , total hysterectomy for fibroid tumor, tubal ligation Past Anesthesia/Blood Transfusion Reactions: Motion Sickness Additional Past Anesthesia/Blood Transfusion Reaction / Comment(s): Pt received blood in 2012 without reaction. Past Psychological History: No Psychological Hx Reported Smoking Status: Never smoker Past Alcohol Use History: Unable to Obtain Past Drug Use History: Unable to Obtain - Past Family History Mother Family Medical History: Coronary Artery Disease (CAD) Additional Family Medical History / Comment(s): age 90 of heart failure. Had hx of Parkinsons and Narcolepsy Father Family Medical History: Coronary Artery Disease (CAD) Additional Family Medical History / Comment(s): age 73 of massive heart attack General Exam Limitations: altered mental status Course Vital Signs 07/27/21 07/27/21 11:16 12:29 Temperature 100 F H Pulse Rate 89 67 Respiratory 16 14 Rate Blood Pressure 155/78 138/70 O2 Sat by Pulse 98 94 L Oximetry Medical Decision Making - Lab Data Result diagrams: 07/27/21 11:42 07/27/21 11:42 Lab Results 07/27/21 07/27/21 07/27/21 Range/Units 11:42 11:42 11:42 WBC 21.5 H (3.8-10.6) k/uL RBC 3.79 L (3.80-5.40) m/uL Hgb 12.4 (11.4-16.0) gm/dL Hct 38.3 (34.0-46.0) % MCV 101.1 H (80.0-100.0) fL MCH 32.7 (25.0-35.0) pg MCHC 32.4 (31.0-37.0) g/dL RDW 13.6 (11.5-15.5) % Plt Count 254 (150-450) k/uL MPV 8.2 Neutrophils % 94 % Lymphocytes % 2 % Monocytes % 3 % Eosinophils % 1 % Basophils % 0 % Neutrophils # 20.2 H (1.3-7.7) k/uL Lymphocytes # 0.5 L (1.0-4.8) k/uL Monocytes # 0.6 (0-1.0) k/uL Eosinophils # 0.1 (0-0.7) k/uL Basophils # 0.1 (0-0.2) k/uL Macrocytosis Slight PT 10.4 (9.0-12.0) sec INR 0.9 (<1.2) APTT 19.5 L (22.0-30.0) sec Sodium (137-145) mmol/L Potassium (3.5-5.1) mmol/L Chloride (98-107) mmol/L Carbon Dioxide (22-30) mmol/L Anion Gap mmol/L BUN (7-17) mg/dL Creatinine (0.52-1.04) mg/dL Est GFR (CKD-EPI)AfAm (>60 ml/min/1.73 sqM) Est GFR (CKD-EPI)NonAf (>60 ml/min/1.73 sqM) Glucose (74-99) mg/dL Plasma Lactic Acid [place] (0.7-2.0) mmol/L Calcium (8.4-10.2) mg/dL Magnesium (1.6-2.3) mg/dL Total Bilirubin (0.2-1.3) mg/dL AST (14-36) U/L ALT (4-34) U/L Alkaline Phosphatase (38-126) U/L Ammonia (<30) umol/L Troponin I (0.000-0.034) ng/mL Total Protein (6.3-8.2) g/dL Albumin (3.5-5.0) g/dL Urine Color Yellow Urine Appearance Clear (Clear) Urine pH 6.5 (5.0-8.0) Ur Specific [place] 1.014 (1.001-1.035) Urine Protein 2+ H (Negative) Urine Glucose (UA) 3+ H (Negative) Urine Ketones Negative (Negative) Urine Blood Trace H (Negative) Urine Nitrite Negative (Negative) Urine Bilirubin Negative (Negative) Urine Urobilinogen <2.0 (<2.0) mg/dL Ur Leukocyte Esterase Large H (Negative) Urine RBC 2 (0-5) /hpf Urine WBC 14 H (0-5) /hpf Ur Squamous Epith Cells 2 (0-4) /hpf 07/27/21 07/27/21 07/27/21 Range/Units 11:42 11:42 11:42 WBC (3.8-10.6) k/uL RBC (3.80-5.40) m/uL Hgb (11.4-16.0) gm/dL Hct (34.0-46.0) % MCV (80.0-100.0) fL MCH (25.0-35.0) pg MCHC (31.0-37.0) g/dL RDW (11.5-15.5) % Plt Count (150-450) k/uL MPV Neutrophils % % Lymphocytes % % Monocytes % % Eosinophils % % Basophils % % Neutrophils # (1.3-7.7) k/uL Lymphocytes # (1.0-4.8) k/uL Monocytes # (0-1.0) k/uL Eosinophils # (0-0.7) k/uL Basophils # (0-0.2) k/uL Macrocytosis PT (9.0-12.0) sec INR (<1.2) APTT (22.0-30.0) sec Sodium 134 L (137-145) mmol/L Potassium 4.3 (3.5-5.1) mmol/L Chloride 102 (98-107) mmol/L Carbon Dioxide 24 (22-30) mmol/L Anion Gap 8 mmol/L BUN 26 H (7-17) mg/dL Creatinine 0.87 (0.52-1.04) mg/dL Est GFR (CKD-EPI)AfAm 76 (>60 ml/min/1.73 sqM) Est GFR (CKD-EPI)NonAf 66 (>60 ml/min/1.73 sqM) Glucose 200 H (74-99) mg/dL Plasma Lactic Acid [place] 2.9 H* (0.7-2.0) mmol/L Calcium 9.9 (8.4-10.2) mg/dL Magnesium 1.9 (1.6-2.3) mg/dL Total Bilirubin 0.5 (0.2-1.3) mg/dL AST 39 H (14-36) U/L ALT 23 (4-34) U/L Alkaline Phosphatase 76 (38-126) U/L Ammonia 10 (<30) umol/L Troponin I 0.014 (0.000-0.034) ng/mL Total Protein 7.9 (6.3-8.2) g/dL Albumin 4.2 (3.5-5.0) g/dL Urine Color Urine Appearance (Clear) Urine pH (5.0-8.0) Ur Specific [place] (1.001-1.035) Urine Protein (Negative) Urine Glucose (UA) (Negative) Urine Ketones (Negative) Urine Blood (Negative) Urine Nitrite (Negative) Urine Bilirubin (Negative) Urine Urobilinogen (<2.0) mg/dL Ur Leukocyte Esterase (Negative) Urine RBC (0-5) /hpf Urine WBC (0-5) /hpf Ur Squamous Epith Cells (0-4) /hpf Disposition Clinical Impression: Acute delirium, UTI (urinary tract infection) Disposition: ADMITTED IP TO THIS HOSP Condition: Fair Referrals: Taina Vergara MD [Primary Care Provider] - 1-2 days
--- NOTE | 2021-07-27 11:58 | XR ---
EXAMINATION TYPE: XR chest 1V portable DATE OF EXAM: 07/27/2021 COMPARISON: 06/24/2021 INDICATION: Acute mental status changes TECHNIQUE: Single frontal view of the chest is obtained. FINDINGS: The heart size is upper limits of normal. The pulmonary vasculature is normal. Minimal linear platelike atelectasis may be near the cardiac apex. Lungs otherwise are clear. IMPRESSION: 1. Suggestion of minimal plate atelectasis left lateral base
[2021-07-27 12:15] LABS: Basophils # (A) 0.1 k/uL (0-0.2); Basophils % (A) 0 %; Eosinophils # (A) 0.1 k/uL (0-0.7); Eosinophils % (A) 1 %; HCT 38.3 % (34.0-46.0); HGB 12.4 gm/dL (11.4-16.0); Lymphocytes # (A) 0.5 k/uL (1.0-4.8); Lymphocytes % (A) 2 %; MCH 32.7 pg (25.0-35.0); MCHC 32.4 g/dL (31.0-37.0); MCV 101.1 fL (80.0-100.0); Macrocytosis Slight; Mean Platelet Volume 8.2; Monocytes # (A) 0.6 k/uL (0-1.0); Monocytes % (A) 3 %; Neutrophils # (A) 20.2 k/uL (1.3-7.7); Neutrophils % (A) 94 %; Platelet Count 254 k/uL (150-450); RBC 3.79 m/uL (3.80-5.40); RDW 13.6 % (11.5-15.5); WBC 21.5 k/uL (3.8-10.6)
[2021-07-27 12:17] LABS: Albumin 4.2 g/dL (3.5-5.0); Calcium 9.9 mg/dL (8.4-10.2); Magnesium 1.9 mg/dL (1.6-2.3); Potassium 4.3 mmol/L (3.5-5.1); Total Bilirubin 0.5 mg/dL (0.2-1.3); Total Protein 7.9 g/dL (6.3-8.2)
[2021-07-27 12:36] LABS: INR 0.9 (<1.2); Prothrombin Time 10.4 sec (9.0-12.0)
[2021-07-27 12:37] LABS: Partial Thromboplastin Time 19.5 sec (22.0-30.0)
[2021-07-27 12:38] LABS: Lactic Acid, Venous 2.9 mmol/L (0.7-2.0)
[2021-07-27 12:41] LABS: Appearance,Urine Clear (Clear); Bilirubin,Urine Negative (Negative); Blood,Urine Trace (Negative); Color,Urine Yellow; Glucose,Urine (UA) 3+ (Negative); Ketones,Urine Negative (Negative); Leukocyte Esterase,Urine Large (Negative); Nitrite,Urine Negative (Negative); PH, Urine 6.5 (5.0-8.0); Protein,Urine 2+ (Negative); RBC,Urine 2 /hpf (0-5); Specific Gravity,Urine 1.014 (1.001-1.035); Squamous Epithelial Cell,Urine 2 /hpf (0-4); Urobilinogen,Urine <2.0 mg/dL (<2.0); WBC,Urine 14 /hpf (0-5)
--- NOTE | 2021-07-27 12:49 | CT ---
EXAMINATION TYPE: CT brain wo con DATE OF EXAM: 07/27/2021 COMPARISON: 06/24/2021 HISTORY: Altered mental status. CT DLP: 1848.5 mGycm Automated exposure control for dose reduction was used. FINDINGS: Mild generalized degenerative change with nonspecific low attenuation in the white matter most typica l of remote white matter ischemia. IMPRESSION: DEGENERATIVE AND NONSPECIFIC WHITE MATTER CHANGES MOST TYPICAL OF REMOTE ISCHEMIA. CORRELATE WITH MRI CLINICALLY WARRANTED IF CONCERN FOR ACUTE ISCHEMIA.
[2021-07-27] MEDS ORDERED: CEFEPIME 2 GM in SODIUM CHLORIDE 0.9% 100 ML IVPB STA (12:52)
[2021-07-27] MEDS ORDERED: ONDANSETRON 4 MG/2 ML VIAL IVP PRN (13:02)
[2021-07-27] MEDS ORDERED: NALOXONE 0.4 MG/ML 1 ML VIAL IV PRN (13:02)
[2021-07-27] MEDS ORDERED: ACETAMINOPHEN TAB 325 MG TAB PO PRN (13:02)
[2021-07-27] MEDS: SODIUM CHLORIDE 0.9% 1,000 ML IV SCH ×2 (13:48→22:44)
[2021-07-27] MEDS: INSULIN ASPART (NovoLOG) 100 UNIT/ML VIAL SQ SCH (18:32)
[2021-07-27 18:33] LABS: Glucose,Whole Blood 359 mg/dL (75-99)
[2021-07-28] MEDS ORDERED: DICLOFENAC SODIUM GEL 100 GM TUBE TOPICAL PRN (00:30)
[2021-07-28] MEDS: SODIUM CHLORIDE 0.9% 1,000 ML IV SCH ×3 (06:11→20:34)
[2021-07-28] MEDS: LEVOTHYROXINE 125 MCG TAB PO SCH (06:12)
[2021-07-28] MEDS ORDERED: CINNAMON PO SCH (07:30)
[2021-07-28] MEDS ORDERED: MILK THISTLE PO SCH (07:30)
[2021-07-28] MEDS: INSULIN ASPART (NovoLOG) 100 UNIT/ML VIAL SQ SCH ×3 (10:00→17:16)
[2021-07-28] MEDS: GABAPENTIN 100 MG CAP PO SCH ×2 (10:06→17:16)
[2021-07-28] MEDS: APIXABAN 5 MG TAB PO SCH ×2 (10:06→17:16)
[2021-07-28] MEDS: HYDROcodone/APAP 5-325MG 1 EACH TAB PO SCH ×2 (10:06→17:16)
[2021-07-28] MEDS: PANTOPRAZOLE 40 MG TABLET PO SCH (10:07)
[2021-07-28] MEDS: CYANOCOBALAMIN 500 MCG TAB PO SCH (10:07)
[2021-07-28] MEDS: carvediloL 6.25 MG TAB PO SCH ×2 (10:07→17:16)
[2021-07-28] MEDS: amLODIPine 5 MG TAB PO SCH ×2 (10:07→17:16)
[2021-07-28] MEDS: hydrALAZINE HCL 10 MG TAB PO SCH ×2 (10:07→17:16)
[2021-07-28] MEDS: BUMETANIDE 1 MG TAB PO SCH ×2 (10:54→17:16)
[2021-07-28] MEDS: ASPIRIN 81 MG PO SCH (10:56)
[2021-07-28 11:02] LABS: Basophils % (A) 0 %; Eosinophils # (A) 0.1 k/uL (0-0.7); Eosinophils % (A) 1 %; HCT 33.4 % (34.0-46.0); Lymphocytes # (A) 1.1 k/uL (1.0-4.8); Lymphocytes % (A) 11 %; MCH 33.2 pg (25.0-35.0); MCHC 32.8 g/dL (31.0-37.0); MCV 101.2 fL (80.0-100.0); Macrocytosis Slight; Mean Platelet Volume 7.9; Monocytes # (A) 0.5 k/uL (0-1.0); Monocytes % (A) 5 %; Neutrophils # (A) 8.5 k/uL (1.3-7.7); Neutrophils % (A) 82 %; Platelet Count 213 k/uL (150-450); RDW 13.8 % (11.5-15.5); WBC 10.5 k/uL (3.8-10.6)
[2021-07-28 11:14] LABS: ALT 20 U/L (4-34); AST 30 U/L (14-36); African American GFR (CKD) >90 (>60 ml/min/1.73 sqM); Albumin 3.2 g/dL (3.5-5.0); Alkaline Phosphatase 80 U/L (38-126); Anion Gap 5 mmol/L; Blood Urea Nitrogen 16 mg/dL (7-17); Calcium 9.1 mg/dL (8.4-10.2); Carbon Dioxide 25 mmol/L (22-30); Chloride 104 mmol/L (98-107); Globulin 3.1 g/dL; Glucose 233 mg/dL (74-99); Non-African American GFR(CKD) 84 (>60 ml/min/1.73 sqM); Potassium 3.6 mmol/L (3.5-5.1); Sodium 134 mmol/L (137-145); Total Bilirubin 0.4 mg/dL (0.2-1.3); Total Protein 6.3 g/dL (6.3-8.2)
[2021-07-28 11:49] LABS: Glucose,Whole Blood 113 mg/dL (75-99)
[2021-07-28 17:09] LABS: Glucose,Whole Blood 179 mg/dL (75-99)
[2021-07-28] MEDS ORDERED: PRAVASTATIN SODIUM 20 MG TAB PO SCH (17:30)
--- NOTE | 2021-07-28 19:21 | P.HPIM ---
History of Present Illness H&P Date: 07/28/21 Mirian Briceno, is a 76-year-old female who presented to [facility] emergency room with a chief complaint of altered mental status She was evaluated in the emergency room vital examination on presentation revealed a temperature of 98.5 pulse 75 respiration 16 blood pressure 134/66 pul se ox 97% on room air Laboratory data revealed a white blood count of 21.5 hemoglobin 12.4 platelet count 254 sodium 134 potassium 4.3 chloride 102 CO2 24 BUN 26 creatinine 0.87 glucose 200 urine analysis revealed evidence of urinary tract infection COVID-19 PCR testing was negative Testing in the emergency room revealed chest x-ray did not reveal any evidence of pneumonia computed tomography scan of the brain revealed evidence of nonspecific white matter changes most typical of remote ischemia Patient was admitted to medical floor for further evaluation and treatment, she was started on IV cefepime in the emergency room Past Medical History Past Medical History: Atrial Fibrillation, Chest Pain / Angina, Dementia, Diabetes Mellitus, Eye Disorder, Fibromyalgia, GERD/Reflux, Hyperlipidemia, Hypertension, Osteoarthritis (OA), Pneumonia, Renal Disease, Rheumatoid Arthritis (RA), Thyroid Disorder Additional Past Medical History / Comment(s): Mild glaucoma stable. BURSITIS, hx falls, past chronic sacral wound, occ Vertigo, anemia, Constipation History of Any Multi-Drug Resistant Organisms: None Reported Past Surgical History: Adenoidectomy, Cholecystectomy, Hysterectomy, Joint Replacement, Orthopedic Surgery, Tonsillectomy Additional Past Surgical History / Comment(s): 3 RIGHT KNEE SURGERIES AND 2 LEFT, TOTAL KNEE REPLACEMENTS SURGERIES. D&C'S. Lap Ignacio-en-Y gastric bypass [place] [address] Zambrano , total hysterectomy for fibroid tumor, tubal ligation Past Anesthesia/Blood Transfusion Reactions: Motion Sickness Additional Past Anesthesia/Blood Transfusion Reaction / Comment(s): Pt received blood in 2012 without reaction. Past Psychological History: Depression Additional Psychological History / Comment(s): Pt's 44 year old son in 2013, pt's daughter states that's when pt's mental health started to decline. She has become more forgetful, confused to the point of getting mean, doesn't recognize her spouse at times and has gone outside at night looking for her dogs that have . Smoking Status: Never smoker Past Alcohol Use History: Unable to Obtain Past Drug Use History: Unable to Obtain - Past Family History Mother Family Medical History: Coronary Artery Disease (CAD) Additional Family Medical History / Comment(s): age 90 of heart failure. Had hx of Parkinsons and Narcolepsy Father Family Medical History: Coronary Artery Disease (CAD) Additional Family Medical History / Comment(s): age 73 of massive heart attack Medications and Allergies Home Medications Medication Instructions Recorded Confirmed Type Bumetanide [BUMEX] 1 mg PO BID-W/MEALS 10/02/14 07/27/21 History Pantoprazole Sodium 40 mg PO W/BRKFST 10/02/14 07/27/21 History DULoxetine HCL [Cymbalta] 60 mg PO HS 04/16/15 07/27/21 History traZODone HCL [Desyrel] 50 mg PO HS 06/06/15 07/27/21 History Gabapentin [Neurontin] 100 mg PO BID-W/MEALS 12/16/16 07/27/21 History Apixaban [Eliquis] 5 mg PO BID-W/MEALS 09/27/18 07/27/21 History Pravastatin Sodium [Pravachol] 20 mg PO W/SUPPER 09/27/18 07/27/21 History carvediloL [Coreg] 6.25 mg PO BID-W/MEALS 05/01/19 07/27/21 History HYDROcodone/APAP 5-325MG [[place] 1 tab PO BID-W/MEALS 12/31/20 07/27/21 History 5-325] Levothyroxine Sodium [Synthroid] 125 mcg PO DAILY@0800 12/31/20 07/27/21 History Milk Thistle 250mg 250 mg PO BID-W/MEALS 12/31/20 07/27/21 History amLODIPine [Norvasc] 5 mg PO BID-W/MEALS 12/31/20 07/27/21 History hydrALAZINE HCL [Apresoline] 10 mg PO BID-W/MEALS 12/31/20 07/27/21 History Aspirin 81 mg PO W/LUNCH 03/15/21 07/27/21 History Cholecalciferol (Vitamin D3) 125 mcg PO HS 03/15/21 07/27/21 History [Vitamin D3 (125 MCG = 5,000 IU)] Cyanocobalamin (Vitamin B-12) 500 mcg PO DAILY@0800 03/15/21 07/27/21 History [Vitamin B-12] Acetaminophen [Tylenol] 500 mg PO TID PRN 06/24/21 07/27/21 History Cinnamon 250mg 250 mg PO BID-W/MEALS 06/24/21 07/27/21 History Diclofenac Sodium Gel [Voltaren 2 gm TOPICAL DAILY PRN 06/24/21 07/27/21 History Gel] Insulin Aspart [NovoLOG Flexpen] 12 units SQ BID-W/MEALS 06/24/21 07/27/21 History Insulin Detemir [Levemir Flextouch 14 units SQ HS 06/24/21 07/27/21 History Pen] Latanoprost/Pf [Latanoprost 0.005% 1 drop BOTH EYES HS 06/24/21 07/27/21 History Eye Drop] calcitrioL [Rocaltrol] 0.25 mcg PO BHATTI 06/24/21 07/27/21 History Allergies Allergy/AdvReac Type Severity Reaction Status Date / Time adhesive tape Allergy Rash/Hives Verified 07/27/21 12:58 triamcinolone Allergy Unknown Verified 07/27/21 12:58 venom-honey bee Allergy Swelling Verified 07/27/21 12:58 caffeine AdvReac Nausea & Verified 07/27/21 12:58 Vomiting & Diarrhea hydrocodone bitartrate AdvReac Itching Verified 07/27/21 12:58 [From Lorcet (hydrocodone)] Penicillins AdvReac Nausea & Verified 07/27/21 12:58 Vomiting & Diarrhea tramadol HCl [From Ultram] AdvReac Itching Verified 07/27/21 12:58 Physical Exam Vitals: Vital Signs Temp Pulse Pulse Resp BP BP Pulse Ox 07/28/21 08:00 98.9 F 80 16 160/81 96 07/28/21 02:52 98.6 F 82 16 142/65 94 L 07/27/21 22:40 16 07/27/21 22:05 98.5 F 75 16 134/66 97 07/27/21 17:00 79 16 122/64 98 07/27/21 16:00 83 20 121/61 99 07/27/21 13:49 99 F 74 15 141/76 98 07/27/21 12:29 67 14 138/70 94 L 07/27/21 11:16 100 F H 89 16 155/78 98 Intake and Output 02/21/22 02/22/22 02/22/22 22:59 06:59 14:59 Other: Voiding Method Toilet Toilet # Voids 3 Weight 84.368 kg In general patient is alert confused in no apparent distress HEENT head normocephalic and atraumatic Neck is supple no JVD no goiter no lymphadenopathy no carotid bruit Chest examination is clear to auscultation no crackles no wheezing Cardiac exam reveals regular heart sounds S1 and S2 no gallops no murmurs Abdomen is soft nontender no organomegaly with normal bowel sounds Extremity exam reveals no edema no cyanosis or clubbing Neurological examination reveals no gross focal deficits Results CBC & Chem 7: 07/28/21 10:30 07/28/21 10:30 Labs: Abnormal Lab Results - Last 24 Hours (Table) 07/27/21 07/27/21 07/27/21 Range/Units 11:42 11:42 11:42 WBC 21.5 H (3.8-10.6) k/uL RBC 3.79 L (3.80-5.40) m/uL MCV 101.1 H (80.0-100.0) fL Neutrophils # 20.2 H (1.3-7.7) k/uL Lymphocytes # 0.5 L (1.0-4.8) k/uL APTT 19.5 L (22.0-30.0) sec Sodium (137-145) mmol/L BUN (7-17) mg/dL Glucose (74-99) mg/dL POC Glucose (mg/dL) (75-99) mg/dL Plasma Lactic Acid Chucky (0.7-2.0) mmol/L AST (14-36) U/L Urine Protein 2+ H (Negative) Urine Glucose (UA) 3+ H (Negative) Urine Blood Trace H (Negative) Ur Leukocyte Esterase Large H (Negative) Urine WBC 14 H (0-5) /hpf 07/27/21 07/27/21 07/27/21 Range/Units 11:42 11:42 18:32 WBC (3.8-10.6) k/uL RBC (3.80-5.40) m/uL MCV (80.0-100.0) fL Neutrophils # (1.3-7.7) k/uL Lymphocytes # (1.0-4.8) k/uL APTT (22.0-30.0) sec Sodium 134 L (137-145) mmol/L BUN 26 H (7-17) mg/dL Glucose 200 H (74-99) mg/dL POC Glucose (mg/dL) 359 H (75-99) mg/dL Plasma Lactic Acid Chucky 2.9 H* (0.7-2.0) mmol/L AST 39 H (14-36) U/L Urine Protein (Negative) Urine Glucose (UA) (Negative) Urine Blood (Negative) Ur Leukocyte Esterase (Negative) Urine WBC (0-5) /hpf Microbiology - Last 24 Hours (Table) 07/27/21 11:42 Urine Culture - Preliminary Urine,Catheterized Thrombosis Risk Factor Assmnt - Choose All That Apply Each Factor Represents 1 point: Obesity (BMI >25), Sepsis (< 1month), Swollen legs (current) Each Risk Factor Represents 3 Points: Age 75 years or older Thrombosis Risk Factor Assessment Total Risk Factor Score: 6 Thrombosis Risk Factor Assessment Level: High Risk Assessment and Plan Plan: Urinary tract infection Altered mental status Underlying history of hypertension Underlying history of hypothyroidism Underlying history of insulin-dependent diabetes mellitus Underlying history of osteoarthritis Underlying history of diastolic congestive heart failure Underlying history of chronic kidney disease stage IIIA Underlying history of atrial fibrillation maintained on Eliquis At this time patient is improving gradually She was started with IV cefepime in the emergency room will continue with the same antibiotic at this time Awaiting urine culture infectious disease consultation requested Will recheck labs and follow in a.m.
[2021-07-28 20:28] LABS: Glucose,Whole Blood 114 mg/dL (75-99)
[2021-07-28] MEDS ORDERED: LATANOPROST 0.005% OPHTH DROPS 2.5 ML BTL BOTH EYES SCH (21:00)
[2021-07-28] MEDS ORDERED: traZODone HCL 50 MG TAB PO SCH (21:00)
[2021-07-28] MEDS ORDERED: INSULIN DETEMIR (LEVEMIR) 100 UNIT/ML SYR SQ SCH (21:00)
[2021-07-28] MEDS ORDERED: CHOLECALCIFEROL 125 MCG (5000 IU) TABLET PO SCH (21:00)
[2021-07-28] MEDS ORDERED: DULoxetine HCL 60 MG CAPSULE.DR PO SCH (21:00)
[2021-07-28] MEDS: CEFEPIME 1 GM in SODIUM CHLORIDE 0.9% 50 ML IVPB SCH (22:02)
[2021-07-29] MEDS: SODIUM CHLORIDE 0.9% 1,000 ML IV SCH ×2 (04:29→10:45)
[2021-07-29] MEDS: LEVOTHYROXINE 125 MCG TAB PO SCH (05:43)
[2021-07-29 06:49] LABS: Glucose,Whole Blood 78 mg/dL (75-99)
[2021-07-29] MEDS: INSULIN ASPART (NovoLOG) 100 UNIT/ML VIAL SQ SCH (07:17)
[2021-07-29] MEDS: carvediloL 6.25 MG TAB PO SCH (08:05)
[2021-07-29] MEDS: APIXABAN 5 MG TAB PO SCH (08:05)
[2021-07-29] MEDS: HYDROcodone/APAP 5-325MG 1 EACH TAB PO SCH (08:05)
[2021-07-29] MEDS: GABAPENTIN 100 MG CAP PO SCH (08:06)
[2021-07-29] MEDS: BUMETANIDE 1 MG TAB PO SCH (08:06)
[2021-07-29] MEDS: PANTOPRAZOLE 40 MG TABLET PO SCH (08:06)
[2021-07-29] MEDS: hydrALAZINE HCL 10 MG TAB PO SCH (08:06)
[2021-07-29] MEDS: CYANOCOBALAMIN 500 MCG TAB PO SCH (08:06)
[2021-07-29] MEDS: amLODIPine 5 MG TAB PO SCH (08:06)
[2021-07-29] MEDS: CEFEPIME 1 GM in SODIUM CHLORIDE 0.9% 50 ML IVPB SCH (08:07)
[2021-07-29 08:54] VITALS: BP 150/73; PULSE 70; RESP 18; TEMP 97.6
[2021-07-29 09:25] LABS: Basophils # (A) 0.05 X 10*3/uL (0.00-0.10); Basophils % (A) 0.7 %; Eosinophils # (A) 0.38 X 10*3/uL (0.04-0.35); Eosinophils % (A) 5.4 %; HGB 10.7 g/dL (12.0-15.0); Immature Grans, Automated 0.3 %; Lymphocytes # (A) 1.55 X 10*3/uL (0.90-5.00); Lymphocytes % (A) 21.9 %; MCH 30.7 pg (27.0-32.0); MCHC 30.6 g/dL (32.0-37.0); MCV 100.3 fL (80.0-97.0); Mean Platelet Volume 10.8 fL (9.5-12.2); Monocytes # (A) 0.91 X 10*3/uL (0.20-1.00); Monocytes % (A) 12.8 %; NRBC Per 100 WBC 0 /100 WBCS (0.0-0.0); Neutrophils # (A) 4.18 X 10*3/uL (1.80-7.70); Neutrophils % (A) 58.9 %; Platelet Count 233 X 10*3/uL (140-440); RBC 3.49 X 10*6/uL (4.10-5.20); RDW 14.6 % (11.5-14.5); WBC 7.09 X 10*3/uL (4.50-10.00)
[2021-07-29 09:47] LABS: ALT 20 U/L (8-44); AST 23 U/L (13-35); African American GFR (CKD) 83.6 (60.0-200.0); Albumin 3.5 g/dL (3.8-4.9); Alkaline Phosphatase 71 U/L (41-126); BUN/Creat Ratio 17.88 Ratio (12.00-20.00); Blood Urea Nitrogen 14.3 mg/dL (9.0-27.0); Calcium 9.5 mg/dL (8.7-10.3); Carbon Dioxide 26.8 mmol/L (20.0-27.5); Chloride 103 mmol/L (96-109); Globulin 2.5 g/dL (1.6-3.3); Glucose 79 mg/dL (70-110); Non-African American GFR(CKD) 72.1 (60.0-200.0); Potassium 3.4 mmol/L (3.5-5.5); Sodium 140 mmol/L (135-145); Total Bilirubin <0.15 mg/dL (0.30-1.20)
[2021-07-29] MEDS: POTASSIUM CHLORIDE ER 20 MEQ TAB.ER PO SCH ×2 (10:41→10:42)
[2021-07-29] MEDS: ASPIRIN 81 MG PO SCH (11:56)
== END 2021-07-29 14:20 | disposition home or self-care (01) | DRG 690 ==
LOC: EC 11:15 → 4SSUR 13:02
PROVIDERS: ADMIT Internal Medicine; ATTEND Internal Medicine
DX: N39.0 Urinary tract infection, site not specified (principal); I50.32 Chronic diastolic (congestive) heart failure; E87.2 Acidosis; F05 Delirium due to known physiological condition; I13.0 Hypertensive heart and chronic kidney disease with heart failure and stage 1 through stage 4 chronic kidney disease, or unspecified chronic kidney disease; E03.9 Hypothyroidism, unspecified; E11.22 Type 2 diabetes mellitus with diabetic chronic kidney disease; E78.5 Hyperlipidemia, unspecified; F03.90 Unspecified dementia, unspecified severity, without behavioral disturbance, psychotic disturbance, mood disturbance, and anxiety; F32.A Depression, unspecified; I48.91 Unspecified atrial fibrillation; M06.9 Rheumatoid arthritis, unspecified; M79.7 Fibromyalgia; N18.31 Chronic kidney disease, stage 3a; Z20.822 Contact with and (suspected) exposure to COVID-19; K21.9 Gastro-esophageal reflux disease without esophagitis; H40.9 Unspecified glaucoma; Z79.01 Long term (current) use of anticoagulants; Z79.4 Long term (current) use of insulin; Z79.890 Hormone replacement therapy; Z79.899 Other long term (current) drug therapy; Z82.0 Family history of epilepsy and other diseases of the nervous system; Z82.49 Family history of ischemic heart disease and other diseases of the circulatory system; Z90.710 Acquired absence of both cervix and uterus; Z98.84 Bariatric surgery status; Z96.652 Presence of left artificial knee joint; Z91.81 History of falling; Z98.51 Tubal ligation status; Z90.89 Acquired absence of other organs; Z79.891 Long term (current) use of opiate analgesic; Z88.8 Allergy status to other drugs, medicaments and biological substances; Z91.030 Bee allergy status
CPT/HCPCS: 36415; 70450; 71045; 80053; 81001; 82140; 83605; 83735; 84484; 85025; 85610; 85730; 87040; 87086; 87635; 93005; 96374; 99285

== ENCOUNTER 2021-10-29 09:20 | Inpatient (IN) | payer MEDICARE, BC ==
[2021-10-29 09:37] LABS: Glucose,Whole Blood 183 mg/dL (75-99)
--- NOTE | 2021-10-29 09:48 | ED ---
Altered Mental Status HPI <Brodie Parikh - Last Filed: 10/29/21 16:48> - General Source: EMS Mode of arrival: EMS Limitations: altered mental status <Karmen Lopezkristin Desir - Last Filed: 10/31/21 00:14> - General Chief Complaint: Altered Mental Status Stated Complaint: AMS Time Seen by Provider: 10/29/21 09:29 - History of Present Illness Initial Comments: 76-year-old female with multiple medical conditions presents to the emergency department after she was found down at home. is at bedside and provides a history. States that the patient was found down in her bathroom by her daughter's boyfriend. Unknown if the patient had passed out or fallen. The patient cannot provide a history. EMS was called. She is alert and oriented 1 on arrival. She is normally alert and oriented 4 per family. She was covered in urine. She did have a temp of 100.3. She describes pain as being everywhere. The remainder of the HPI is limited because the patient's current condition (Madhuri Lopez) - Related Data Home Medications Medication Instructions Recorded Confirmed Bumetanide [BUMEX] 1 mg PO BID@0900,1200 10/02/14 10/29/21 Pantoprazole Sodium 40 mg PO W/BRKFST 10/02/14 10/29/21 DULoxetine HCL [Cymbalta] 60 mg PO HS 04/16/15 10/29/21 traZODone HCL [Desyrel] 50 mg PO HS 06/06/15 10/29/21 Gabapentin [Neurontin] 100 mg PO BID@1200,1700 12/16/16 10/29/21 Apixaban [Eliquis] 5 mg PO BID-W/MEALS 09/27/18 10/29/21 Pravastatin Sodium [Pravachol] 20 mg PO W/SUPPER 09/27/18 10/29/21 carvediloL [Coreg] 6.25 mg PO BID-W/MEALS 05/01/19 10/29/21 HYDROcodone/APAP 5-325MG [[place] 1 tab PO BID@0900,2100 12/31/20 10/29/21 5-325] Levothyroxine Sodium [Synthroid] 125 mcg PO DAILY@0800 12/31/20 10/29/21 Milk Thistle 250mg 250 mg PO BID@1200,1700 12/31/20 10/29/21 amLODIPine [Norvasc] 5 mg PO BID-W/MEALS 12/31/20 10/29/21 hydrALAZINE HCL [Apresoline] 10 mg PO BID-W/MEALS 12/31/20 10/29/21 Aspirin 81 mg PO W/LUNCH 03/15/21 10/29/21 Cholecalciferol (Vitamin D3) 125 mcg PO HS 03/15/21 10/29/21 [Vitamin D3 (125 MCG = 5,000 IU)] Cyanocobalamin (Vitamin B-12) 500 mcg PO Q48H 03/15/21 10/29/21 [Vitamin B-12] Acetaminophen [Tylenol] 500 mg PO TID PRN 06/24/21 10/29/21 Cinnamon 250mg 250 mg PO BID@0900,1200 06/24/21 10/29/21 Diclofenac Sodium Gel [Voltaren 2 gm TOPICAL DAILY PRN 06/24/21 10/29/21 Gel] Insulin Aspart [NovoLOG Flexpen] 12 units SQ BID-W/MEALS 06/24/21 10/29/21 Insulin Detemir [Levemir Flextouch 14 units SQ HS 06/24/21 10/29/21 Pen] Latanoprost/Pf [Latanoprost 0.005% 1 drop BOTH EYES HS 06/24/21 10/29/21 Eye Drop] calcitrioL [Rocaltrol] 0.25 mcg PO BHATTI 06/24/21 10/29/21 Fluticasone Nasal [place] [Flonase 2 spray EA NOSTRIL DAILY PRN 10/29/21 10/29/21 Nasal [place]] Insulin Aspart [NovoLOG Flexpen] 5 units SQ W/LUNCH PRN 10/29/21 10/29/21 Mupirocin 2% Oint [Bactroban 2% 1 applic TOPICAL TID 10/29/21 10/29/21 Oint] clindamycin HCL [Cleocin] 600 mg PO DIRECTED PRN 10/29/21 10/29/21 diphenhydrAMINE HCL [Benadryl] 25 mg PO DAILY PRN 10/29/21 10/29/21 Allergies Allergy/AdvReac Type Severity Reaction Status Date / Time adhesive tape Allergy Rash/Hives Verified 10/29/21 17:33 Penicillins Allergy Anaphylaxis Verified 10/29/21 17:33 triamcinolone Allergy Unknown Verified 10/29/21 17:33 venom-honey bee Allergy Swelling Verified 10/29/21 17:33 caffeine AdvReac Nausea & Verified 10/29/21 17:33 Vomiting & Diarrhea hydrocodone bitartrate AdvReac Itching Verified 10/29/21 17:33 [From Lorcet (hydrocodone)] tramadol HCl [From Ultram] AdvReac Itching Verified 10/29/21 17:33 Review of Systems ROS Other: All systems not noted in ROS Statement are negative. <Brodie Parikh - Last Filed: 10/29/21 16:48> ROS Other: All systems not noted in ROS Statement are negative. <Madhuri Lopez - Last Filed: 10/31/21 00:14> ROS Statement: Those systems with pertinent positive or pertinent negative responses have been documented in the HPI. Past Medical History Past Medical History: Atrial Fibrillation, Chest Pain / Angina, Dementia, Diabetes Mellitus, Eye Disorder, Fibromyalgia, GERD/Reflux, Hyperlipidemia, Hypertension, Osteoarthritis (OA), Pneumonia, Renal Disease, Rheumatoid Arthritis (RA), Thyroid Disorder Additional Past Medical History / Comment(s): Mild glaucoma stable. BURSITIS, hx falls, past chronic sacral wound, occ Vertigo, anemia, Constipation History of Any Multi-Drug Resistant Organisms: None Reported Past Surgical History: Adenoidectomy, Cholecystectomy, Hysterectomy, Joint Replacement, Orthopedic Surgery, Tonsillectomy Additional Past Surgical History / Comment(s): 3 RIGHT KNEE SURGERIES AND 2 LEFT, TOTAL KNEE REPLACEMENTS SURGERIES. D&C'S. Lap Ignacio-en-Y gastric bypass [place] [address] Zambrano , total hysterectomy for fibroid tumor, tubal ligation Past Anesthesia/Blood Transfusion Reactions: Motion Sickness Additional Past Anesthesia/Blood Transfusion Reaction / Comment(s): Pt received blood in 2013 without reaction. Past Psychological History: Depression Smoking Status: Never smoker Past Alcohol Use History: None Reported Past Drug Use History: None Reported - Past Family History Mother Family Medical History: Coronary Artery Disease (CAD) Additional Family Medical History / Comment(s): age 90 of heart failure. Had hx of Parkinsons and Narcolepsy Father Family Medical History: Coronary Artery Disease (CAD) Additional Family Medical History / Comment(s): age 73 of massive heart attack <Madhuri Lopez - Last Filed: 10/31/21 00:14> General Exam Limitations: altered mental status General appearance: alert, in no apparent distress Head exam: Present: atraumatic, normocephalic, normal inspection Eye exam: Present: normal appearance, PERRL, EOMI. Absent: scleral icterus, conjunctival injection, periorbital swelling ENT exam: Present: normal exam, mucous membranes moist Neck exam: Present: normal inspection. Absent: tenderness, meningismus, lymphadenopathy Respiratory exam: Present: normal lung sounds bilaterally. Absent: respiratory distress, wheezes, rales, rhonchi, stridor Cardiovascular Exam: Present: regular rate, normal rhythm, normal heart sounds. Absent: systolic murmur, diastolic murmur, rubs, gallop, clicks GI/Abdominal exam: Present: soft, normal bowel sounds. Absent: distended, tenderness, guarding, rebound, rigid Extremities exam: Present: normal inspection, full ROM, normal capillary refill. Absent: tenderness, pedal edema, joint swelling, calf tenderness Back exam: Present: normal inspection Neurological exam: Present: alert, CN II-XII intact Psychiatric exam: Present: flat affect Skin exam: Present: warm, dry, intact, normal color. Absent: rash <Madhuri Lopez - Last Filed: 10/31/21 00:14> Course <Brodie Parikh - Last Filed: 10/29/21 16:48> Vital Signs 10/29/21 10/29/21 10/29/21 09:23 09:48 16:05 Temperature 100.0 F H 98.8 F Pulse Rate 93 87 87 Respiratory 20 20 18 Rate Blood Pressure 138/71 148/77 145/80 O2 Sat by Pulse 95 98 100 Oximetry 10/29/21 18:49 Temperature 99.0 F Pulse Rate 103 H Respiratory 20 Rate Blood Pressure 175/86 O2 Sat by Pulse 99 Oximetry - Reevaluation(s) Reevaluation #1: 10/29/21 16:48 Patient did have a UA that was sent there is evidence of UTI patient be started on IV antibiotics. Patient is to be admitted Dr. Vergara. (Brodie Parikh) Medical Decision Making - Lab Data Result diagrams: 10/29/21 09:52 10/29/21 09:52 <Brodie Parikh - Last Filed: 10/29/21 16:48> - Lab Data Result diagrams: 10/30/21 06:25 10/30/21 06:25 <Madhuri Lopez - Last Filed: 10/31/21 00:14> - Medical Decision Making Upon arrival patient is placed into room 2. A thorough history and physical exam was performed. Unknown if the patient hit her head and is on anticoagulation and therefore she is sent for a CT of her head and cervical spine. Chest and pelvic x-ray performed. Laboratory studies are reviewed. CT of the head, chest and pelvic x-ray negative for any acute injuries. Results are discussed the patient. Did recommend admission for possible syncopal episode. Patient will be admitted to Dr. Vergara (Madhuri Lopez) - Lab Data Lab Results 10/29/21 10/29/21 10/29/21 Range/Units 09:36 09:52 09:52 WBC 10.3 (3.8-10.6) k/uL RBC 3.92 (3.80-5.40) m/uL Hgb 12.4 (11.4-16.0) gm/dL Hct 39.1 (34.0-46.0) % MCV 99.8 (80.0-100.0) fL MCH 31.7 (25.0-35.0) pg MCHC 31.8 (31.0-37.0) g/dL RDW 14.5 (11.5-15.5) % Plt Count 258 (150-450) k/uL Plt Count Comment MPV 7.6 Immature Gran % (Auto) % Absolute Nucleated RBC (0.00-0.00) X 10*3/uL Neutrophils % 96 % Lymphocytes % 2 % Monocytes % 1 % Eosinophils % 0 % Basophils % 0 % Immature Gran # (0.00-0.04) X 10*3/uL Neutrophils # 9.9 H (1.3-7.7) k/uL Lymphocytes # 0.2 L (1.0-4.8) k/uL Monocytes # 0.1 (0-1.0) k/uL Eosinophils # 0.0 (0-0.7) k/uL Basophils # 0.0 (0-0.2) k/uL NRBC/100 WBC Diff (0.0-0.0) /100 WBCS Manual Slide Review Performed RBC Morphology Macrocytosis Slight PT 10.5 (9.0-12.0) sec INR 1.0 (<1.2) APTT 23.8 (22.0-30.0) sec Sodium (137-145) mmol/L Potassium (3.5-5.1) mmol/L Chloride (98-107) mmol/L Carbon Dioxide (22-30) mmol/L Anion Gap mmol/L BUN (7-17) mg/dL Creatinine (0.52-1.04) mg/dL Est GFR (CKD-EPI)AfAm (>60 ml/min/1.73 sqM) Est GFR (CKD-EPI)NonAf (>60 ml/min/1.73 sqM) BUN/Creatinine Ratio (12.00-20.00) Ratio Glucose (74-99) mg/dL POC Glucose (mg/dL) 183 H (75-99) mg/dL POC Glu Soap Slabber ID Koki Esparza Calcium (8.4-10.2) mg/dL Total Bilirubin (0.2-1.3) mg/dL AST (14-36) U/L ALT (4-34) U/L Alkaline Phosphatase (38-126) U/L Troponin I (0.000-0.034) ng/mL NT-Pro-B Natriuret Pep (0-450) pg/mL Total Protein (6.3-8.2) g/dL Albumin (3.5-5.0) g/dL Globulin (1.6-3.3) g/dL Albumin/Globulin Ratio (1.60-3.17) g/dL TSH (0.465-4.680) mIU/L Urine Color Urine Appearance (Clear) Urine pH (5.0-8.0) Ur Specific [place] (1.001-1.035) Urine Protein (Negative) Urine Glucose (UA) (Negative) Urine Ketones (Negative) Urine Blood (Negative) Urine Nitrite (Negative) Urine Bilirubin (Negative) Urine Urobilinogen (<2.0) mg/dL Ur Leukocyte Esterase (Negative) Urine RBC (0-5) /hpf Urine WBC (0-5) /hpf Urine WBC Clumps (None) /hpf Ur Squamous Epith Cells (0-4) /hpf Amorphous Sediment (None) /hpf Urine Bacteria (None) /hpf Urine Mucus (None) /hpf 10/29/21 10/29/21 10/29/21 Range/Units 09:52 09:52 14:10 WBC (3.8-10.6) k/uL RBC (3.80-5.40) m/uL Hgb (11.4-16.0) gm/dL Hct (34.0-46.0) % MCV (80.0-100.0) fL MCH (25.0-35.0) pg MCHC (31.0-37.0) g/dL RDW (11.5-15.5) % Plt Count (150-450) k/uL Plt Count Comment MPV Immature Gran % (Auto) % Absolute Nucleated RBC (0.00-0.00) X 10*3/uL Neutrophils % % Lymphocytes % % Monocytes % % Eosinophils % % Basophils % % Immature Gran # (0.00-0.04) X 10*3/uL Neutrophils # (1.3-7.7) k/uL Lymphocytes # (1.0-4.8) k/uL Monocytes # (0-1.0) k/uL Eosinophils # (0-0.7) k/uL Basophils # (0-0.2) k/uL NRBC/100 WBC Diff (0.0-0.0) /100 WBCS Manual Slide Review RBC Morphology Macrocytosis PT (9.0-12.0) sec INR (<1.2) APTT (22.0-30.0) sec Sodium 138 (137-145) mmol/L Potassium 3.7 (3.5-5.1) mmol/L Chloride 105 (98-107) mmol/L Carbon Dioxide 24 (22-30) mmol/L Anion Gap 9 mmol/L BUN 28 H (7-17) mg/dL Creatinine 1.01 (0.52-1.04) mg/dL Est GFR (CKD-EPI)AfAm 63 (>60 ml/min/1.73 sqM) Est GFR (CKD-EPI)NonAf 55 (>60 ml/min/1.73 sqM) BUN/Creatinine Ratio (12.00-20.00) Ratio Glucose 191 H (74-99) mg/dL POC Glucose (mg/dL) (75-99) mg/dL POC Glu Soap Slabber ID Calcium 9.5 (8.4-10.2) mg/dL Total Bilirubin 0.6 (0.2-1.3) mg/dL AST 72 H (14-36) U/L ALT 38 H (4-34) U/L Alkaline Phosphatase 144 H (38-126) U/L Troponin I 0.021 (0.000-0.034) ng/mL NT-Pro-B Natriuret Pep (0-450) pg/mL Total Protein 7.3 (6.3-8.2) g/dL Albumin 4.1 (3.5-5.0) g/dL Globulin (1.6-3.3) g/dL Albumin/Globulin Ratio (1.60-3.17) g/dL TSH 0.616 (0.465-4.680) mIU/L Urine Color Yellow Urine Appearance Turbid H (Clear) Urine pH 6.0 (5.0-8.0) Ur Specific [place] 1.014 (1.001-1.035) Urine Protein 2+ H (Negative) Urine Glucose (UA) Negative (Negative) Urine Ketones Negative (Negative) Urine Blood Moderate H (Negative) Urine Nitrite Negative (Negative) Urine Bilirubin Negative (Negative) Urine Urobilinogen <2.0 (<2.0) mg/dL Ur Leukocyte Esterase Large H (Negative) Urine RBC 7 H (0-5) /hpf Urine WBC >182 H (0-5) /hpf Urine WBC Clumps Many H (None) /hpf Ur Squamous Epith Cells 1 (0-4) /hpf Amorphous Sediment Rare H (None) /hpf Urine Bacteria Moderate H (None) /hpf Urine Mucus Rare H (None) /hpf 10/29/21 10/30/21 10/30/21 Range/Units 21:24 06:25 06:25 WBC 24.88 H (3.8-10.6) k/uL RBC 3.74 L (3.80-5.40) m/uL Hgb 11.8 L (11.4-16.0) gm/dL Hct 37.1 L (34.0-46.0) % MCV 99.2 H (80.0-100.0) fL MCH 31.6 (25.0-35.0) pg MCHC 31.8 L (31.0-37.0) g/dL RDW 15.0 H (11.5-15.5) % Plt Count 262 (150-450) k/uL Plt Count Comment DECREASED A MPV 11.2 Immature Gran % (Auto) 1.7 % Absolute Nucleated RBC 0 (0.00-0.00) X 10*3/uL Neutrophils % 84.9 % Lymphocytes % 5.4 % Monocytes % 7.4 % Eosinophils % 0.3 % Basophils % 0.3 % Immature Gran # 0.43 H (0.00-0.04) X 10*3/uL Neutrophils # 21.09 H (1.3-7.7) k/uL Lymphocytes # 1.35 (1.0-4.8) k/uL Monocytes # 1.85 H (0-1.0) k/uL Eosinophils # 0.08 (0-0.7) k/uL Basophils # 0.08 (0-0.2) k/uL NRBC/100 WBC Diff 0 (0.0-0.0) /100 WBCS Manual Slide Review RBC Morphology NORMAL Macrocytosis PT (9.0-12.0) sec INR (<1.2) APTT (22.0-30.0) sec Sodium 143 (137-145) mmol/L Potassium 4.0 (3.5-5.1) mmol/L Chloride 104 (98-107) mmol/L Carbon Dioxide 27.2 (22-30) mmol/L Anion Gap 11.80 mmol/L BUN 23.9 (7-17) mg/dL Creatinine 1.0 (0.52-1.04) mg/dL Est GFR (CKD-EPI)AfAm 63.8 (>60 ml/min/1.73 sqM) Est GFR (CKD-EPI)NonAf 55.1 L (>60 ml/min/1.73 sqM) BUN/Creatinine Ratio 23.90 H (12.00-20.00) Ratio Glucose 217 H (74-99) mg/dL POC Glucose (mg/dL) 302 H (75-99) mg/dL POC Glu Soap Slabber ID Lopez Salud Calcium 9.6 (8.4-10.2) mg/dL Total Bilirubin 0.20 L (0.2-1.3) mg/dL AST 34 (14-36) U/L ALT 36 (4-34) U/L Alkaline Phosphatase 137 H (38-126) U/L Troponin I (0.000-0.034) ng/mL NT-Pro-B Natriuret Pep (0-450) pg/mL Total Protein 6.9 (6.3-8.2) g/dL Albumin 3.8 (3.5-5.0) g/dL Globulin 3.1 (1.6-3.3) g/dL Albumin/Globulin Ratio 1.23 L (1.60-3.17) g/dL TSH (0.465-4.680) mIU/L Urine Color Urine Appearance (Clear) Urine pH (5.0-8.0) Ur Specific [place] (1.001-1.035) Urine Protein (Negative) Urine Glucose (UA) (Negative) Urine Ketones (Negative) Urine Blood (Negative) Urine Nitrite (Negative) Urine Bilirubin (Negative) Urine Urobilinogen (<2.0) mg/dL Ur Leukocyte Esterase (Negative) Urine RBC (0-5) /hpf Urine WBC (0-5) /hpf Urine WBC Clumps (None) /hpf Ur Squamous Epith Cells (0-4) /hpf Amorphous Sediment (None) /hpf Urine Bacteria (None) /hpf Urine Mucus (None) /hpf 10/30/21 10/30/21 10/30/21 Range/Units 06:25 08:14 11:46 WBC (3.8-10.6) k/uL RBC (3.80-5.40) m/uL Hgb (11.4-16.0) gm/dL Hct (34.0-46.0) % MCV (80.0-100.0) fL MCH (25.0-35.0) pg MCHC (31.0-37.0) g/dL RDW (11.5-15.5) % Plt Count (150-450) k/uL Plt Count Comment MPV Immature Gran % (Auto) % Absolute Nucleated RBC (0.00-0.00) X 10*3/uL Neutrophils % % Lymphocytes % % Monocytes % % Eosinophils % % Basophils % % Immature Gran # (0.00-0.04) X 10*3/uL Neutrophils # (1.3-7.7) k/uL Lymphocytes # (1.0-4.8) k/uL Monocytes # (0-1.0) k/uL Eosinophils # (0-0.7) k/uL Basophils # (0-0.2) k/uL NRBC/100 WBC Diff (0.0-0.0) /100 WBCS Manual Slide Review RBC Morphology Macrocytosis PT (9.0-12.0) sec INR (<1.2) APTT (22.0-30.0) sec Sodium (137-145) mmol/L Potassium (3.5-5.1) mmol/L Chloride (98-107) mmol/L Carbon Dioxide (22-30) mmol/L Anion Gap mmol/L BUN (7-17) mg/dL Creatinine (0.52-1.04) mg/dL Est GFR (CKD-EPI)AfAm (>60 ml/min/1.73 sqM) Est GFR (CKD-EPI)NonAf (>60 ml/min/1.73 sqM) BUN/Creatinine Ratio (12.00-20.00) Ratio Glucose (74-99) mg/dL POC Glucose (mg/dL) 186 H 193 H (75-99) mg/dL POC Glu Soap Slabber ID Salinas, Subha Salinas, Subha Calcium (8.4-10.2) mg/dL Total Bilirubin (0.2-1.3) mg/dL AST (14-36) U/L ALT (4-34) U/L Alkaline Phosphatase (38-126) U/L Troponin I (0.000-0.034) ng/mL NT-Pro-B Natriuret Pep 6475 H (0-450) pg/mL Total Protein (6.3-8.2) g/dL Albumin (3.5-5.0) g/dL Globulin (1.6-3.3) g/dL Albumin/Globulin Ratio (1.60-3.17) g/dL TSH (0.465-4.680) mIU/L Urine Color Urine Appearance (Clear) Urine pH (5.0-8.0) Ur Specific [place] (1.001-1.035) Urine Protein (Negative) Urine Glucose (UA) (Negative) Urine Ketones (Negative) Urine Blood (Negative) Urine Nitrite (Negative) Urine Bilirubin (Negative) Urine Urobilinogen (<2.0) mg/dL Ur Leukocyte Esterase (Negative) Urine RBC (0-5) /hpf Urine WBC (0-5) /hpf Urine WBC Clumps (None) /hpf Ur Squamous Epith Cells (0-4) /hpf Amorphous Sediment (None) /hpf Urine Bacteria (None) /hpf Urine Mucus (None) /hpf - EKG Data EKG Comments: EKG demonstrates sinus rhythm with a rate of 93. Pr interval 140. QRS 122. QTC of 405. Left bundle branch block. Negative for sgarbossa criteria (Madhuri Lopez) Disposition <Brodie Parikh - Last Filed: 10/29/21 16:48> Is patient prescribed a controlled substance at d/c from ED?: No Decision to Admit Reason: Admit from EC Decision Date: 10/29/21 Decision Time: 15:46 <Madhuri Lopez - Last Filed: 10/31/21 00:14> Clinical Impression: Acute encephalopathy, Fall, Syncope, Urinary tract infection Disposition: ADMITTED IP TO THIS HOSP Condition: Stable
[2021-10-29 10:32] LABS: Partial Thromboplastin Time 23.8 sec (22.0-30.0); Prothrombin Time 10.5 sec (9.0-12.0)
[2021-10-29 10:46] LABS: Basophils % (A) 0 %; Eosinophils % (A) 0 %; HCT 39.1 % (34.0-46.0); HGB 12.4 gm/dL (11.4-16.0); Lymphocytes # (A) 0.2 k/uL (1.0-4.8); Lymphocytes % (A) 2 %; MCH 31.7 pg (25.0-35.0); MCHC 31.8 g/dL (31.0-37.0); MCV 99.8 fL (80.0-100.0); Macrocytosis Slight; Mean Platelet Volume 7.6; Monocytes # (A) 0.1 k/uL (0-1.0); Monocytes % (A) 1 %; Neutrophils # (A) 9.9 k/uL (1.3-7.7); Neutrophils % (A) 96 %; Platelet Count 258 k/uL (150-450); RBC 3.92 m/uL (3.80-5.40); RDW 14.5 % (11.5-15.5); WBC 10.3 k/uL (3.8-10.6)
--- NOTE | 2021-10-29 10:54 | CT ---
EXAMINATION TYPE: CT brain cspine wo con DATE OF EXAM: 10/29/2021 COMPARISON: CT dated 07/27/2021 HISTORY: AMS. Unwitnessed fall in bathroom today CT DLP: 1311.7 mGycm Automated exposure control for dose reduction was used. TECHNIQUE: CT scan of the head and cervical spine are performed without contrast. FINDINGS: Brain: Bilateral cerebral white matter hypodensities likely representing chronic microvascular ischemic sevilla ges with suspected tiny lacunar infarcts. No acute intracranial hemorrhage or gross acute cortical in farct. No midline shift or herniation. Unremarkable basal cisterns, sella and CP angles. No gross space-occupying lesion, vasogenic edema or mass effect. Grossly unremarkable orbits. Clear v isualized paranasal sinuses and mastoid cells. No definite acute calvarial bone fracture identified. Cervical spine: Mild anterior wedging of T3 vertebral body, likely chronic, please correlate clinically. No definite cervical vertebral body collapse or acute displaced fracture. Unremarkable atlantoaxial and atlantooc cipital articulations. Marked degenerative changes of cervical spine with multilevel opposing endplate osteophytosis, degene rated discs and uncovertebral arthropathy. Left C3-4, bilateral C4-5, bilateral C5-6 and left C6-7 ne uroforaminal stenosis. Multilevel facet osteoarthropathy and spinal canal stenosis is also noted. Degenerative changes of th e atlantoodontoid articulation and sternoclavicular joints. IMPRESSION: 1. No acute intracranial posttraumatic sequela or acute calvarial bone fracture. 2. No evidence of acute traumatic bony injury of the cervical spine. 3. Degenerative changes of the cervical spine with other incidental findings as described above.
[2021-10-29 14:42] LABS: ALT 38 U/L (4-34); AST 72 U/L (14-36); African American GFR (CKD) 63 (>60 ml/min/1.73 sqM); Albumin 4.1 g/dL (3.5-5.0); Alkaline Phosphatase 144 U/L (38-126); Anion Gap 9 mmol/L; Blood Urea Nitrogen 28 mg/dL (7-17); Calcium 9.5 mg/dL (8.4-10.2); Carbon Dioxide 24 mmol/L (22-30); Chloride 105 mmol/L (98-107); Glucose 191 mg/dL (74-99); Non-African American GFR(CKD) 55 (>60 ml/min/1.73 sqM); Potassium 3.7 mmol/L (3.5-5.1); Sodium 138 mmol/L (137-145); Total Bilirubin 0.6 mg/dL (0.2-1.3); Total Protein 7.3 g/dL (6.3-8.2)
--- NOTE | 2021-10-29 15:06 | XR ---
EXAMINATION TYPE: XR chest 2V DATE OF EXAM: 10/29/2021 COMPARISON: X-ray dated 07/27/2021 HISTORY: Cough/pain TECHNIQUE: Frontal and lateral views of the chest are obtained. FINDINGS: Congested pulmonary vasculature with prominent interstitial lung markings suggestive of pulmonary kelly ma, please correlate clinically. Small atelectasis in the left lung base, appreciated previously. No sizable pleural effusion or definite pneumothorax. Slightly increased cardiac transverse diameter. Degenerative changes of the thoracic spine. Osteopenia. IMPRESSION: Suspected pulmonary edema as described above, please correlate clinically.
--- NOTE | 2021-10-29 15:08 | XR ---
EXAMINATION TYPE: XR pelvis AP view DATE OF EXAM: 10/29/2021 COMPARISON: CT dated 06/14/2021 and x-ray dated 09/27/2018 INDICATION: Fall TECHNIQUE: Single AP view of the pelvis FINDINGS: Diffuse osteopenia. Degenerative changes of the hip joints, more on the right side. Bilateral femoral greater trochanteric enthesophytosis. Suspected chronic fractures of the left superior and left infe rior pubic rami, stable. No definite acute pelvic bone fracture identified. Severe degenerative changes of the lower lumbar sp ine. Bilateral pelvic phleboliths rather than urinary calculi. Arterial atherosclerotic calcification s. IMPRESSION: No definite acute pelvic bone fracture identified.
[2021-10-29] MEDS ORDERED: NALOXONE 0.4 MG/ML 1 ML VIAL IV PRN (15:49)
[2021-10-29] MEDS ORDERED: cefTRIAXone IN SWFI 1,000 MG/10 ML SYRINGE IVP STA (16:47)
[2021-10-29] MEDS ORDERED: LORazepam 2 MG/ML INJ IV STA (17:04)
[2021-10-29 18:47] LABS: Amorphous Sediment,Urine Rare /hpf; Appearance,Urine Turbid (Clear); Bacteria,Urine Moderate /hpf; Bilirubin,Urine Negative (Negative); Blood,Urine Moderate (Negative); Color,Urine Yellow; Glucose,Urine (UA) Negative (Negative); Ketones,Urine Negative (Negative); Leukocyte Esterase,Urine Large (Negative); Mucus,Urine Rare /hpf; Nitrite,Urine Negative (Negative); Protein,Urine 2+ (Negative); RBC,Urine 7 /hpf (0-5); Specific Gravity,Urine 1.014 (1.001-1.035); Squamous Epithelial Cell,Urine 1 /hpf (0-4); Urobilinogen,Urine <2.0 mg/dL (<2.0); WBC,Urine >182 /hpf (0-5)
[2021-10-29] MEDS ORDERED: diphenhydrAMINE 25 MG CAP PO PRN (20:06)
[2021-10-29] MEDS ORDERED: ACETAMINOPHEN TAB 500 MG TAB PO PRN (20:06)
[2021-10-29] MEDS ORDERED: FLUTICASONE 50MCG/SPRAY NASAL 16GM EA NOSTRIL PRN (20:06)
[2021-10-29] MEDS ORDERED: CLINDAMYCIN HCL 300 MG PO PRN (20:06)
[2021-10-29 21:27] LABS: Glucose,Whole Blood 302 mg/dL (75-99)
[2021-10-29] MEDS: LATANOPROST 0.005% OPHTH DROPS 2.5 ML BTL BOTH EYES SCH (21:43)
[2021-10-29] MEDS: CHOLECALCIFEROL 25 MCG (1000 IU) TABLET PO SCH (21:48)
[2021-10-29] MEDS: traZODone HCL 50 MG TAB PO SCH (21:48)
[2021-10-29] MEDS: DULoxetine HCL 60 MG CAPSULE.DR PO SCH (21:48)
[2021-10-29] MEDS: INSULIN DETEMIR (LEVEMIR) 100 UNIT/ML SYR SQ SCH (21:49)
[2021-10-29] MEDS: HYDROcodone/APAP 5-325MG 1 EACH TAB PO SCH (21:49)
[2021-10-30] MEDS: traZODone HCL 50 MG TAB PO SCH ×2 (05:46→20:35)
[2021-10-30] MEDS: CINNAMON PO SCH ×2 (08:06→12:08)
[2021-10-30 08:16] LABS: Glucose,Whole Blood 186 mg/dL (75-99)
[2021-10-30] MEDS: INSULIN ASPART (NovoLOG) 100 UNIT/ML VIAL SQ SCH ×2 (08:17→17:52)
[2021-10-30] MEDS: APIXABAN 5 MG TAB PO SCH ×2 (08:17→17:52)
[2021-10-30] MEDS: carvediloL 6.25 MG TAB PO SCH ×2 (08:17→17:51)
[2021-10-30] MEDS: amLODIPine 5 MG TAB PO SCH ×2 (08:17→17:52)
[2021-10-30] MEDS: hydrALAZINE HCL 10 MG TAB PO SCH ×2 (08:17→17:52)
[2021-10-30] MEDS: BUMETANIDE 1 MG TAB PO SCH ×2 (08:18→12:51)
[2021-10-30] MEDS: PANTOPRAZOLE 40 MG TABLET PO SCH (08:18)
[2021-10-30] MEDS: LEVOTHYROXINE 125 MCG TAB PO SCH (08:18)
[2021-10-30] MEDS: CYANOCOBALAMIN 500 MCG TAB PO SCH (08:44)
[2021-10-30] MEDS: HYDROcodone/APAP 5-325MG 1 EACH TAB PO SCH ×2 (08:44→20:35)
[2021-10-30 08:56] LABS: HCT 37.1 % (37.2-46.3); HGB 11.8 g/dL (12.0-15.0); MCH 31.6 pg (27.0-32.0); MCHC 31.8 g/dL (32.0-37.0); MCV 99.2 fL (80.0-97.0); Mean Platelet Volume 11.2 fL (9.5-12.2); NRBC Per 100 WBC 0 /100 WBCS (0.0-0.0); Platelet Count 262 X 10*3/uL (140-440); RBC 3.74 X 10*6/uL (4.10-5.20); WBC 24.88 X 10*3/uL (4.50-10.00)
[2021-10-30 09:51] LABS: African American GFR (CKD) 63.8 (60.0-200.0); Albumin 3.8 g/dL (3.8-4.9); Albumin/Globulin Ratio 1.23 (1.60-3.17); Anion Gap 11.8 mmol/L (10.00-18.00); BUN/Creat Ratio 23.9 Ratio (12.00-20.00); Blood Urea Nitrogen 23.9 mg/dL (9.0-27.0); Calcium 9.6 mg/dL (8.7-10.3); Carbon Dioxide 27.2 mmol/L (20.0-27.5); Globulin 3.1 g/dL (1.6-3.3); Non-African American GFR(CKD) 55.1 (60.0-200.0); Total Bilirubin 0.2 mg/dL (0.30-1.20); Total Protein 6.9 g/dL (6.2-8.2)
[2021-10-30 10:18] LABS: Basophils # (A) 0.08 X 10*3/uL (0.00-0.10); Basophils % (A) 0.3 %; Eosinophils # (A) 0.08 X 10*3/uL (0.04-0.35); Eosinophils % (A) 0.3 %; Immature Grans, Automated 1.7 %; Lymphocytes # (A) 1.35 X 10*3/uL (0.90-5.00); Lymphocytes % (A) 5.4 %; Monocytes # (A) 1.85 X 10*3/uL (0.20-1.00); Monocytes % (A) 7.4 %; Neutrophils # (A) 21.09 X 10*3/uL (1.80-7.70); Neutrophils % (A) 84.9 %
[2021-10-30 10:19] LABS: RBC Morphology NORMAL
--- NOTE | 2021-10-30 10:32 | P.PN ---
Subjective Progress Note Date: 10/30/21 On 10/30/2021 patient is resting comfortably in bed intermittent episodes of confusion. Blood culture positive for gram-negative rods. Infectious disease services have been consulted. White blood cell increasing to 24.8. Patient currently on IV Rocephin. Will order COVID-19 and influenza At this time patient denies chest pain or shortness of breath. Patient denies nausea vomiting or diarrhea. Patient denies any urinary burning or frequency Objective - Vital Signs Vital signs: Vital Signs Temp 97.8 F 10/30/21 07:00 Pulse 79 10/30/21 07:00 Resp 18 10/30/21 07:00 BP 155/79 10/30/21 07:00 Pulse Ox 97 10/30/21 07:00 FiO2 Intake & Output 10/29/21 10/30/21 10/30/21 18:59 06:59 18:59 Intake Total 240 Output Total 1000 Balance -1000 240 Weight 81.647 kg Intake: Oral 240 Output: Urine 1000 Other: Voiding Method External Catheter External Catheter - Exam In general patient is alert and oriented ?-3 in no distress HEENT head normocephalic and atraumatic Neck is supple no JVD no goiter no lymphadenopathy no carotid bruit Chest examination is clear to auscultation no crackles no wheezing Cardiac exam reveals regular heart sounds S1 and S2 no gallops no murmurs Abdomen is soft nontender no organomegaly with normal bowel sounds Extremity exam reveals no edema no cyanosis or clubbing Neurological examination reveals no gross focal deficits - Labs CBC & Chem 7: 10/30/21 06:25 10/30/21 06:25 Labs: Abnormal Lab Results - Last 24 Hours (Table) 10/29/21 10/29/21 10/29/21 Range/Units 09:52 09:52 14:10 WBC (4.50-10.00) X 10*3/uL RBC (4.10-5.20) X 10*6/uL Hgb (12.0-15.0) g/dL Hct (37.2-46.3) % MCV (80.0-97.0) fL MCHC (32.0-37.0) g/dL RDW (11.5-14.5) % Plt Count Comment Immature Gran # (0.00-0.04) X 10*3/uL Neutrophils # 9.9 H (1.3-7.7) k/uL Lymphocytes # 0.2 L (1.0-4.8) k/uL Monocytes # (0.20-1.00) X 10*3/uL BUN 28 H (7-17) mg/dL Est GFR (CKD-EPI)NonAf (60.0-200.0) BUN/Creatinine Ratio (12.00-20.00) Ratio Glucose 191 H (74-99) mg/dL POC Glucose (mg/dL) (75-99) mg/dL Total Bilirubin (0.30-1.20) mg/dL AST 72 H (14-36) U/L ALT 38 H (4-34) U/L Alkaline Phosphatase 144 H (38-126) U/L Albumin/Globulin Ratio (1.60-3.17) g/dL Urine Appearance Turbid H (Clear) Urine Protein 2+ H (Negative) Urine Blood Moderate H (Negative) Ur Leukocyte Esterase Large H (Negative) Urine RBC 7 H (0-5) /hpf Urine WBC >182 H (0-5) /hpf Urine WBC Clumps Many H (None) /hpf Amorphous Sediment Rare H (None) /hpf Urine Bacteria Moderate H (None) /hpf Urine Mucus Rare H (None) /hpf 10/29/21 10/30/21 10/30/21 Range/Units 21:24 06:25 06:25 WBC 24.88 H (4.50-10.00) X 10*3/uL RBC 3.74 L (4.10-5.20) X 10*6/uL Hgb 11.8 L (12.0-15.0) g/dL Hct 37.1 L (37.2-46.3) % MCV 99.2 H (80.0-97.0) fL MCHC 31.8 L (32.0-37.0) g/dL RDW 15.0 H (11.5-14.5) % Plt Count Comment DECREASED A Immature Gran # 0.43 H (0.00-0.04) X 10*3/uL Neutrophils # 21.09 H (1.3-7.7) k/uL Lymphocytes # (1.0-4.8) k/uL Monocytes # 1.85 H (0.20-1.00) X 10*3/uL BUN (7-17) mg/dL Est GFR (CKD-EPI)NonAf 55.1 L (60.0-200.0) BUN/Creatinine Ratio 23.90 H (12.00-20.00) Ratio Glucose 217 H (74-99) mg/dL POC Glucose (mg/dL) 302 H (75-99) mg/dL Total Bilirubin 0.20 L (0.30-1.20) mg/dL AST (14-36) U/L ALT (4-34) U/L Alkaline Phosphatase 137 H (38-126) U/L Albumin/Globulin Ratio 1.23 L (1.60-3.17) g/dL Urine Appearance (Clear) Urine Protein (Negative) Urine Blood (Negative) Ur Leukocyte Esterase (Negative) Urine RBC (0-5) /hpf Urine WBC (0-5) /hpf Urine WBC Clumps (None) /hpf Amorphous Sediment (None) /hpf Urine Bacteria (None) /hpf Urine Mucus (None) /hpf 10/30/21 Range/Units 08:14 WBC (4.50-10.00) X 10*3/uL RBC (4.10-5.20) X 10*6/uL Hgb (12.0-15.0) g/dL Hct (37.2-46.3) % MCV (80.0-97.0) fL MCHC (32.0-37.0) g/dL RDW (11.5-14.5) % Plt Count Comment Immature Gran # (0.00-0.04) X 10*3/uL Neutrophils # (1.3-7.7) k/uL Lymphocytes # (1.0-4.8) k/uL Monocytes # (0.20-1.00) X 10*3/uL BUN (7-17) mg/dL Est GFR (CKD-EPI)NonAf (60.0-200.0) BUN/Creatinine Ratio (12.00-20.00) Ratio Glucose (74-99) mg/dL POC Glucose (mg/dL) 186 H (75-99) mg/dL Total Bilirubin (0.30-1.20) mg/dL AST (14-36) U/L ALT (4-34) U/L Alkaline Phosphatase (38-126) U/L Albumin/Globulin Ratio (1.60-3.17) g/dL Urine Appearance (Clear) Urine Protein (Negative) Urine Blood (Negative) Ur Leukocyte Esterase (Negative) Urine RBC (0-5) /hpf Urine WBC (0-5) /hpf Urine WBC Clumps (None) /hpf Amorphous Sediment (None) /hpf Urine Bacteria (None) /hpf Urine Mucus (None) /hpf Microbiology - Last 24 Hours (Table) 10/29/21 14:10 Urine Culture - Preliminary Urine,Voided 10/29/21 19:00 Blood Culture Gram Stain - Preliminary Blood 10/29/21 19:00 Blood Culture - Final Blood Assessment and Plan Assessment: 1. Altered mental status changes 2. Fall at home 3. Urinary tract infection 4. Positive blood culture 5. History of hypertension 6. History of hypothyroidism 7. History of insulin-dependent diabetes mellitus 8. History of osteoarthritis 9. History of diastolic congestive heart failure 10. History of chronic kidney disease stage III 11. History of atrial fibrillation maintained on eliquis DVT prophylaxis eliquis. GI prophylaxis Protonix Patient started on IV antibiotics Infectious disease service is consulted Repeat labs ordered
[2021-10-30 11:47] LABS: Glucose,Whole Blood 193 mg/dL (75-99)
[2021-10-30] MEDS: MILK THISTLE PO SCH ×2 (12:09→17:35)
[2021-10-30] MEDS: GABAPENTIN 100 MG CAP PO SCH ×2 (12:51→17:51)
[2021-10-30] MEDS: ASPIRIN 81 MG PO SCH (12:51)
[2021-10-30] MEDS: IOPAMIDOL CONTRAST (ORAL USE) VIAL PO PRN ×2 (14:29→15:18)
--- NOTE | 2021-10-30 14:36 | P.HPIM ---
History of Present Illness H&P Date: 10/29/21 Mirian Briceno, is a 76-year-old female who presented to [facility] emergency room with a chief complaint of confusion and mental status changes, patient had a fall with head trauma at home He was evaluated in the emergency room vital examination on presentation revealed a temperature of 100 heart rate 93 respiration 20 blood pressure 138/71 pulse ox 95% on room air Laboratory data revealed white blood count 10.3 hemoglobin 12.4 platelet count 258 BUN 28 creatinine 1.01 urine analysis revealed evidence of urinary tract infection Testing in the emergency room revealed the head and cervical spine computed tomography scan without contrast was done in the emergency room and did not reveal any acute abnormality, chest x-ray was done in emergency room and revealed suspected pulmonary edema, pelvic x-ray didn't reveal any evidence of acute fracture. EKG revealed sinus rhythm, with left ventricular hypertrophy and left axis deviation. Patient was admitted to medical floor for further evaluation and treatment, she was started on IV Rocephin for urinary tract infection Past Medical History Past Medical History: Atrial Fibrillation, Chest Pain / Angina, Dementia, Diabetes Mellitus, Eye Disorder, Fibromyalgia, GERD/Reflux, Hyperlipidemia, Hypertension, Osteoarthritis (OA), Pneumonia, Renal Disease, Rheumatoid Arthritis (RA), Thyroid Disorder Additional Past Medical History / Comment(s): Mild glaucoma stable. BURSITIS, hx falls, past chronic sacral wound, occ Vertigo, anemia, Constipation History of Any Multi-Drug Resistant Organisms: None Reported Past Surgical History: Adenoidectomy, Cholecystectomy, Hysterectomy, Joint Replacement, Orthopedic Surgery, Tonsillectomy Additional Past Surgical History / Comment(s): 3 RIGHT KNEE SURGERIES AND 2 LEFT, TOTAL KNEE REPLACEMENTS SURGERIES. D&C'S. Lap Ignacio-en-Y gastric bypass [place] [address] Zambrano , total hysterectomy for fibroid tumor, tubal ligation Past Anesthesia/Blood Transfusion Reactions: Motion Sickness Additional Past Anesthesia/Blood Transfusion Reaction / Comment(s): Pt received blood in 2012 without reaction. Past Psychological History: Depression Smoking Status: Never smoker Past Alcohol Use History: None Reported Past Drug Use History: None Reported - Past Family History Mother Family Medical History: Coronary Artery Disease (CAD) Additional Family Medical History / Comment(s): age 90 of heart failure. Had hx of Parkinsons and Narcolepsy Father Family Medical History: Coronary Artery Disease (CAD) Additional Family Medical History / Comment(s): age 73 of massive heart attack Medications and Allergies Home Medications Medication Instructions Recorded Confirmed Type Bumetanide [BUMEX] 1 mg PO BID@0900,1200 10/02/14 10/29/21 History Pantoprazole Sodium 40 mg PO W/BRKFST 10/02/14 10/29/21 History DULoxetine HCL [Cymbalta] 60 mg PO HS 04/16/15 10/29/21 History traZODone HCL [Desyrel] 50 mg PO HS 06/06/15 10/29/21 History Gabapentin [Neurontin] 100 mg PO BID@1200,1700 12/16/16 10/29/21 History Apixaban [Eliquis] 5 mg PO BID-W/MEALS 09/27/18 10/29/21 History Pravastatin Sodium [Pravachol] 20 mg PO W/SUPPER 09/27/18 10/29/21 History carvediloL [Coreg] 6.25 mg PO BID-W/MEALS 05/01/19 10/29/21 History HYDROcodone/APAP 5-325MG [[place] 1 tab PO BID@0900,2100 12/31/20 10/29/21 History 5-325] Levothyroxine Sodium [Synthroid] 125 mcg PO DAILY@0800 12/31/20 10/29/21 History Milk Thistle 250mg 250 mg PO BID@1200,1700 12/31/20 10/29/21 History amLODIPine [Norvasc] 5 mg PO BID-W/MEALS 12/31/20 10/29/21 History hydrALAZINE HCL [Apresoline] 10 mg PO BID-W/MEALS 12/31/20 10/29/21 History Aspirin 81 mg PO W/LUNCH 03/15/21 10/29/21 History Cholecalciferol (Vitamin D3) 125 mcg PO HS 03/15/21 10/29/21 History [Vitamin D3 (125 MCG = 5,000 IU)] Cyanocobalamin (Vitamin B-12) 500 mcg PO Q48H 03/15/21 10/29/21 History [Vitamin B-12] Acetaminophen [Tylenol] 500 mg PO TID PRN 06/24/21 10/29/21 History Cinnamon 250mg 250 mg PO BID@0900,1200 06/24/21 10/29/21 History Diclofenac Sodium Gel [Voltaren 2 gm TOPICAL DAILY PRN 06/24/21 10/29/21 History Gel] Insulin Aspart [NovoLOG Flexpen] 12 units SQ BID-W/MEALS 06/24/21 10/29/21 History Insulin Detemir [Levemir Flextouch 14 units SQ HS 06/24/21 10/29/21 History Pen] Latanoprost/Pf [Latanoprost 0.005% 1 drop BOTH EYES HS 06/24/21 10/29/21 History Eye Drop] calcitrioL [Rocaltrol] 0.25 mcg PO BHATTI 06/24/21 10/29/21 History Fluticasone Nasal [facility] [Flonase 2 spray EA NOSTRIL DAILY PRN 10/29/21 10/29/21 History Nasal [facility]] Insulin Aspart [NovoLOG Flexpen] 5 units SQ W/LUNCH PRN 10/29/21 10/29/21 History Mupirocin 2% Oint [Bactroban 2% 1 applic TOPICAL TID 10/29/21 10/29/21 History Oint] clindamycin HCL [Cleocin] 600 mg PO DIRECTED PRN 10/29/21 10/29/21 History diphenhydrAMINE HCL [Benadryl] 25 mg PO DAILY PRN 10/29/21 10/29/21 History Allergies Allergy/AdvReac Type Severity Reaction Status Date / Time adhesive tape Allergy Rash/Hives Verified 10/29/21 17:33 Penicillins Allergy Anaphylaxis Verified 10/29/21 17:33 triamcinolone Allergy Unknown Verified 10/29/21 17:33 venom-honey bee Allergy Swelling Verified 10/29/21 17:33 caffeine AdvReac Nausea & Verified 10/29/21 17:33 Vomiting & Diarrhea hydrocodone bitartrate AdvReac Itching Verified 10/29/21 17:33 [From Lorcet (hydrocodone)] tramadol HCl [From Ultram] AdvReac Itching Verified 10/29/21 17:33 Physical Exam Vitals: Vital Signs Temp Pulse Resp BP Pulse Ox 10/29/21 18:49 99.0 F 103 H 20 175/86 99 10/29/21 16:05 98.8 F 87 18 145/80 100 05/26/22 09:48 87 20 148/77 98 10/29/21 09:23 100.0 F H 93 20 138/71 95 Intake and Output 10/29/21 10/29/21 10/29/21 06:59 14:59 22:59 Other: Weight 81.647 kg In general patient is alert and oriented x 3 in no distress HEENT head normocephalic and atraumatic Neck is supple no JVD no goiter no lymphadenopathy no carotid bruit Chest examination is clear to auscultation no crackles no wheezing Cardiac exam reveals regular heart sounds S1 and S2 no gallops no murmurs Abdomen is soft nontender no organomegaly with normal bowel sounds Extremity exam reveals no edema no cyanosis or clubbing Neurological examination reveals no gross focal deficits Results CBC & Chem 7: 10/30/21 06:25 10/30/21 06:25 Labs: Abnormal Lab Results - Last 24 Hours (Table) 10/29/21 10/29/21 10/29/21 Range/Units 09:36 09:52 09:52 Neutrophils # 9.9 H (1.3-7.7) k/uL Lymphocytes # 0.2 L (1.0-4.8) k/uL BUN 28 H (7-17) mg/dL Glucose 191 H (74-99) mg/dL POC Glucose (mg/dL) 183 H (75-99) mg/dL AST 72 H (14-36) U/L ALT 38 H (4-34) U/L Alkaline Phosphatase 144 H (38-126) U/L Urine Appearance (Clear) Urine Protein (Negative) Urine Blood (Negative) Ur Leukocyte Esterase (Negative) Urine RBC (0-5) /hpf Urine WBC (0-5) /hpf Urine WBC Clumps (None) /hpf Amorphous Sediment (None) /hpf Urine Bacteria (None) /hpf Urine Mucus (None) /hpf 10/29/21 Range/Units 14:10 Neutrophils # (1.3-7.7) k/uL Lymphocytes # (1.0-4.8) k/uL BUN (7-17) mg/dL Glucose (74-99) mg/dL POC Glucose (mg/dL) (75-99) mg/dL AST (14-36) U/L ALT (4-34) U/L Alkaline Phosphatase (38-126) U/L Urine Appearance Turbid H (Clear) Urine Protein 2+ H (Negative) Urine Blood Moderate H (Negative) Ur Leukocyte Esterase Large H (Negative) Urine RBC 7 H (0-5) /hpf Urine WBC >182 H (0-5) /hpf Urine WBC Clumps Many H (None) /hpf Amorphous Sediment Rare H (None) /hpf Urine Bacteria Moderate H (None) /hpf Urine Mucus Rare H (None) /hpf Assessment and Plan Assessment: 1. Altered mental status changes 2. Fall at home 3. Urinary tract infection 4. Positive blood culture 5. History of hypertension 6. History of hypothyroidism 7. History of insulin-dependent diabetes mellitus 8. History of osteoarthritis 9. History of diastolic congestive heart failure 10. History of chronic kidney disease stage III 11. History of atrial fibrillation maintained on eliquis DVT prophylaxis eliquis. GI prophylaxis Protonix Patient started on IV antibiotics Infectious disease service is consulted Repeat labs ordered
--- NOTE | 2021-10-30 16:41 | CT ---
EXAMINATION TYPE: CT abdomen pelvis wo con DATE OF EXAM: 10/30/2021 COMPARISON: 06/24/2021 HISTORY: h/o RLQ pain CT DLP: 1312 mGycm Automated exposure control for dose reduction was used. TECHNIQUE: Helical acquisition of images was performed from the lung bases through the pelvis. FINDINGS: The visualized lung bases are clear. There are surgical absence of the gallbladder. There is no organomegaly involving the liver, pancreas, spleen or adrenal glands. There are postsurgical changes involving the stomach. There is malrotation of the right kidney. There is significant stranding of the perinephric fat raisi ng the question of acute inflammation, possibly pyelonephritis. There is no renal calcification or hy dronephrosis. The bowel loops are normal in caliber and there is no evidence of obstruction. There is no free intraperitoneal air or fluid. There is no pelvic mass or adenopathy. There is diverticulosis of the sigmoid colon without CT eviden ce of diverticulitis The visualized osseous structures are intact. IMPRESSION: 1. Interval development of significant stranding of the perinephric fat of the right kidney raising t he question of acute inflammation possibly pyelonephritis. Clinical correlation is recommended. 2. Surgical absence of the gallbladder and bariatric surgery involving the stomach. 3. Diverticulosis of the colon without CT evidence of diverticulitis.
[2021-10-30 17:35] LABS: Glucose,Whole Blood 140 mg/dL (75-99)
[2021-10-30] MEDS: PRAVASTATIN SODIUM 20 MG TAB PO SCH (17:52)
[2021-10-30 20:32] LABS: Glucose,Whole Blood 122 mg/dL (75-99)
[2021-10-30] MEDS: INSULIN DETEMIR (LEVEMIR) 100 UNIT/ML SYR SQ SCH (20:33)
[2021-10-30] MEDS: CHOLECALCIFEROL 25 MCG (1000 IU) TABLET PO SCH (20:34)
[2021-10-30] MEDS: LATANOPROST 0.005% OPHTH DROPS 2.5 ML BTL BOTH EYES SCH (20:35)
[2021-10-30] MEDS: DULoxetine HCL 60 MG CAPSULE.DR PO SCH (20:35)
[2021-10-31 07:54] LABS: Glucose,Whole Blood 138 mg/dL (75-99)
[2021-10-31 08:36] LABS: ALT 25 U/L (4-34); AST 33 U/L (14-36); African American GFR (CKD) 73 (>60 ml/min/1.73 sqM); Albumin 3.5 g/dL (3.5-5.0); Albumin/Globulin Ratio 1.2; Alkaline Phosphatase 123 U/L (38-126); Anion Gap 8 mmol/L; Blood Urea Nitrogen 30 mg/dL (7-17); Calcium 9.5 mg/dL (8.4-10.2); Carbon Dioxide 27 mmol/L (22-30); Chloride 104 mmol/L (98-107); Globulin 2.9 g/dL; Glucose 138 mg/dL (74-99); Non-African American GFR(CKD) 63 (>60 ml/min/1.73 sqM); Potassium 4.4 mmol/L (3.5-5.1); Sodium 139 mmol/L (137-145); Total Bilirubin 0.3 mg/dL (0.2-1.3); Total Protein 6.4 g/dL (6.3-8.2)
[2021-10-31] MEDS: INSULIN ASPART (NovoLOG) 100 UNIT/ML VIAL SQ SCH ×2 (09:05→17:59)
[2021-10-31] MEDS: LEVOTHYROXINE 125 MCG TAB PO SCH (09:06)
[2021-10-31] MEDS: APIXABAN 5 MG TAB PO SCH ×2 (09:06→17:59)
[2021-10-31] MEDS: amLODIPine 5 MG TAB PO SCH ×2 (09:06→17:59)
[2021-10-31] MEDS: hydrALAZINE HCL 10 MG TAB PO SCH ×2 (09:06→17:59)
[2021-10-31] MEDS: PANTOPRAZOLE 40 MG TABLET PO SCH (09:06)
[2021-10-31] MEDS: carvediloL 6.25 MG TAB PO SCH ×2 (09:06→17:59)
[2021-10-31] MEDS: CINNAMON PO SCH ×2 (09:07→12:46)
[2021-10-31] MEDS: BUMETANIDE 1 MG TAB PO SCH ×2 (09:07→12:51)
[2021-10-31] MEDS: HYDROcodone/APAP 5-325MG 1 EACH TAB PO SCH ×2 (09:13→20:41)
[2021-10-31 09:19] LABS: Basophils # (A) 0.1 k/uL (0-0.2); Basophils % (A) 0 %; Eosinophils # (A) 0.4 k/uL (0-0.7); Eosinophils % (A) 3 %; HCT 38.5 % (34.0-46.0); HGB 12.2 gm/dL (11.4-16.0); Lymphocytes # (A) 0.9 k/uL (1.0-4.8); Lymphocytes % (A) 5 %; MCH 31.1 pg (25.0-35.0); MCHC 31.7 g/dL (31.0-37.0); MCV 98.2 fL (80.0-100.0); Mean Platelet Volume 9.6; Monocytes # (A) 1.2 k/uL (0-1.0); Monocytes % (A) 7 %; Neutrophils # (A) 13.1 k/uL (1.3-7.7); Neutrophils % (A) 82 %; Platelet Count 196 k/uL (150-450); RBC 3.92 m/uL (3.80-5.40); RDW 13.9 % (11.5-15.5)
--- NOTE | 2021-10-31 09:26 | P.CONS ---
History of Present Illness - Reason for Consult Consult date: 10/30/21 - History of Present Illness Patient is a 76 year old female with multiple comorbidities patient was brought into the ER 2 nights ago after pending the patient was noticed to be on floor by the family member patient complaining of feeling weak and legs giving out leading to the fall patient denies having any trauma to the head or any loss of consciousness patient mentioned has been feeling weak over the last few days and noticed the urine has becoming more darker but denies any suprapubic or flank pain and some nausea but no vomiting denies having any chest pain or shortness of breath or cough and no diarrhea with a the patient was evaluated by the ER physician on arrival to the ER patient did have a low-grade fever did have elevated white count of 24,000 patient did have a positive UA patient was started on Rocephin has been admitted to the hospital infectious disease was consulted for further management of antibiotic therapy Past Medical History Past Medical History: Atrial Fibrillation, Chest Pain / Angina, Dementia, Diabetes Mellitus, Eye Disorder, Fibromyalgia, GERD/Reflux, Hyperlipidemia, Hypertension, Osteoarthritis (OA), Pneumonia, Renal Disease, Rheumatoid Arthritis (RA), Thyroid Disorder Additional Past Medical History / Comment(s): Mild glaucoma stable. BURSITIS, hx falls, past chronic sacral wound, occ Vertigo, anemia, Constipation History of Any Multi-Drug Resistant Organisms: None Reported Past Surgical History: Adenoidectomy, Cholecystectomy, Hysterectomy, Joint Replacement, Orthopedic Surgery, Tonsillectomy Additional Past Surgical History / Comment(s): 3 RIGHT KNEE SURGERIES AND 2 LEFT, TOTAL KNEE REPLACEMENTS SURGERIES. D&C'S. Lap Ignacio-en-Y gastric bypass [place] [address] Zambrano , total hysterectomy for fibroid tumor, tubal ligation Past Anesthesia/Blood Transfusion Reactions: Motion Sickness Additional Past Anesthesia/Blood Transfusion Reaction / Comm: Pt received blood in 2013 without reaction. Past Psychological History: Depression Smoking Status: Never smoker Past Alcohol Use History: None Reported Past Drug Use History: None Reported - Past Family History Mother Family Medical History: Coronary Artery Disease (CAD) Additional Family Medical History / Comment(s): age 90 of heart failure. Had hx of Parkinsons and Narcolepsy Father Family Medical History: Coronary Artery Disease (CAD) Additional Family Medical History / Comment(s): age 73 of massive heart attack Medications and Allergies Home Medications Medication Instructions Recorded Confirmed Type Bumetanide [BUMEX] 1 mg PO BID@0900,1200 10/02/14 10/29/21 History Pantoprazole Sodium 40 mg PO W/BRKFST 10/02/14 10/29/21 History DULoxetine HCL [Cymbalta] 60 mg PO HS 04/16/15 10/29/21 History traZODone HCL [Desyrel] 50 mg PO HS 06/06/15 10/29/21 History Gabapentin [Neurontin] 100 mg PO BID@1200,1700 12/16/16 10/29/21 History Apixaban [Eliquis] 5 mg PO BID-W/MEALS 09/27/18 10/29/21 History Pravastatin Sodium [Pravachol] 20 mg PO W/SUPPER 09/27/18 10/29/21 History carvediloL [Coreg] 6.25 mg PO BID-W/MEALS 05/01/19 10/29/21 History HYDROcodone/APAP 5-325MG [[place] 1 tab PO BID@0900,2100 12/31/20 10/29/21 History 5-325] Levothyroxine Sodium [Synthroid] 125 mcg PO DAILY@0800 12/31/20 10/29/21 History Milk Thistle 250mg 250 mg PO BID@1200,1700 12/31/20 10/29/21 History amLODIPine [Norvasc] 5 mg PO BID-W/MEALS 12/31/20 10/29/21 History hydrALAZINE HCL [Apresoline] 10 mg PO BID-W/MEALS 12/31/20 10/29/21 History Aspirin 81 mg PO W/LUNCH 03/15/21 10/29/21 History Cholecalciferol (Vitamin D3) 125 mcg PO HS 03/15/21 10/29/21 History [Vitamin D3 (125 MCG = 5,000 IU)] Cyanocobalamin (Vitamin B-12) 500 mcg PO Q48H 03/15/21 10/29/21 History [Vitamin B-12] Acetaminophen [Tylenol] 500 mg PO TID PRN 06/24/21 10/29/21 History Cinnamon 250mg 250 mg PO BID@0900,1200 06/24/21 10/29/21 History Diclofenac Sodium Gel [Voltaren 2 gm TOPICAL DAILY PRN 06/24/21 10/29/21 History Gel] Insulin Aspart [NovoLOG Flexpen] 12 units SQ BID-W/MEALS 06/24/21 10/29/21 History Insulin Detemir [Levemir Flextouch 14 units SQ HS 06/24/21 10/29/21 History Pen] Latanoprost/Pf [Latanoprost 0.005% 1 drop BOTH EYES HS 06/24/21 10/29/21 History Eye Drop] calcitrioL [Rocaltrol] 0.25 mcg PO BHATTI 06/24/21 10/29/21 History Fluticasone Nasal [place] [Flonase 2 spray EA NOSTRIL DAILY PRN 10/29/21 10/29/21 History Nasal [place]] Insulin Aspart [NovoLOG Flexpen] 5 units SQ W/LUNCH PRN 10/29/21 10/29/21 History Mupirocin 2% Oint [Bactroban 2% 1 applic TOPICAL TID 10/29/21 10/29/21 History Oint] clindamycin HCL [Cleocin] 600 mg PO DIRECTED PRN 10/29/21 10/29/21 History diphenhydrAMINE HCL [Benadryl] 25 mg PO DAILY PRN 10/29/21 10/29/21 History Allergies Allergy/AdvReac Type Severity Reaction Status Date / Time adhesive tape Allergy Rash/Hives Verified 10/29/21 17:33 Penicillins Allergy Anaphylaxis Verified 10/29/21 17:33 triamcinolone Allergy Unknown Verified 10/29/21 17:33 venom-honey bee Allergy Swelling Verified 10/29/21 17:33 caffeine AdvReac Nausea & Verified 10/29/21 17:33 Vomiting & Diarrhea hydrocodone bitartrate AdvReac Itching Verified 10/29/21 17:33 [From Lorcet (hydrocodone)] tramadol HCl [From Ultram] AdvReac Itching Verified 10/29/21 17:33 Physical Exam Vitals: Vital Signs Temp Pulse Pulse Resp BP BP Pulse Ox 10/30/21 07:00 97.8 F 79 18 155/79 97 10/30/21 02:22 97.9 F 74 16 124/76 98 10/29/21 21:19 100.4 F H 108 H 16 172/84 96 10/29/21 18:49 99.0 F 103 H 20 175/86 99 10/29/21 16:05 98.8 F 87 18 145/80 100 Intake and Output 10/29/21 10/30/21 10/30/21 22:59 06:59 14:59 Intake Total 240 Output Total 800 200 Balance -800 -200 240 Intake: Oral 240 Output: Urine 800 200 Other: Voiding Method External Catheter External Catheter Weight 81.647 kg Results CBC & Chem 7: 10/31/21 07:27 10/31/21 07:27 Labs: Abnormal Lab Results - Last 24 Hours (Table) 10/29/21 10/29/21 10/29/21 Range/Units 09:52 09:52 14:10 WBC (4.50-10.00) X 10*3/uL RBC (4.10-5.20) X 10*6/uL Hgb (12.0-15.0) g/dL Hct (37.2-46.3) % MCV (80.0-97.0) fL MCHC (32.0-37.0) g/dL RDW (11.5-14.5) % Plt Count Comment Immature Gran # (0.00-0.04) X 10*3/uL Neutrophils # 9.9 H (1.3-7.7) k/uL Lymphocytes # 0.2 L (1.0-4.8) k/uL Monocytes # (0.20-1.00) X 10*3/uL BUN 28 H (7-17) mg/dL Est GFR (CKD-EPI)NonAf (60.0-200.0) BUN/Creatinine Ratio (12.00-20.00) Ratio Glucose 191 H (74-99) mg/dL POC Glucose (mg/dL) (75-99) mg/dL Total Bilirubin (0.30-1.20) mg/dL AST 72 H (14-36) U/L ALT 38 H (4-34) U/L Alkaline Phosphatase 144 H (38-126) U/L Albumin/Globulin Ratio (1.60-3.17) g/dL Urine Appearance Turbid H (Clear) Urine Protein 2+ H (Negative) Urine Blood Moderate H (Negative) Ur Leukocyte Esterase Large H (Negative) Urine RBC 7 H (0-5) /hpf Urine WBC >182 H (0-5) /hpf Urine WBC Clumps Many H (None) /hpf Amorphous Sediment Rare H (None) /hpf Urine Bacteria Moderate H (None) /hpf Urine Mucus Rare H (None) /hpf 10/29/21 10/30/21 10/30/21 Range/Units 21:24 06:25 06:25 WBC 24.88 H (4.50-10.00) X 10*3/uL RBC 3.74 L (4.10-5.20) X 10*6/uL Hgb 11.8 L (12.0-15.0) g/dL Hct 37.1 L (37.2-46.3) % MCV 99.2 H (80.0-97.0) fL MCHC 31.8 L (32.0-37.0) g/dL RDW 15.0 H (11.5-14.5) % Plt Count Comment DECREASED A Immature Gran # 0.43 H (0.00-0.04) X 10*3/uL Neutrophils # 21.09 H (1.3-7.7) k/uL Lymphocytes # (1.0-4.8) k/uL Monocytes # 1.85 H (0.20-1.00) X 10*3/uL BUN (7-17) mg/dL Est GFR (CKD-EPI)NonAf 55.1 L (60.0-200.0) BUN/Creatinine Ratio 23.90 H (12.00-20.00) Ratio Glucose 217 H (74-99) mg/dL POC Glucose (mg/dL) 302 H (75-99) mg/dL Total Bilirubin 0.20 L (0.30-1.20) mg/dL AST (14-36) U/L ALT (4-34) U/L Alkaline Phosphatase 137 H (38-126) U/L Albumin/Globulin Ratio 1.23 L (1.60-3.17) g/dL Urine Appearance (Clear) Urine Protein (Negative) Urine Blood (Negative) Ur Leukocyte Esterase (Negative) Urine RBC (0-5) /hpf Urine WBC (0-5) /hpf Urine WBC Clumps (None) /hpf Amorphous Sediment (None) /hpf Urine Bacteria (None) /hpf Urine Mucus (None) /hpf 10/30/21 10/30/21 Range/Units 08:14 11:46 WBC (4.50-10.00) X 10*3/uL RBC (4.10-5.20) X 10*6/uL Hgb (12.0-15.0) g/dL Hct (37.2-46.3) % MCV (80.0-97.0) fL MCHC (32.0-37.0) g/dL RDW (11.5-14.5) % Plt Count Comment Immature Gran # (0.00-0.04) X 10*3/uL Neutrophils # (1.3-7.7) k/uL Lymphocytes # (1.0-4.8) k/uL Monocytes # (0.20-1.00) X 10*3/uL BUN (7-17) mg/dL Est GFR (CKD-EPI)NonAf (60.0-200.0) BUN/Creatinine Ratio (12.00-20.00) Ratio Glucose (74-99) mg/dL POC Glucose (mg/dL) 186 H 193 H (75-99) mg/dL Total Bilirubin (0.30-1.20) mg/dL AST (14-36) U/L ALT (4-34) U/L Alkaline Phosphatase (38-126) U/L Albumin/Globulin Ratio (1.60-3.17) g/dL Urine Appearance (Clear) Urine Protein (Negative) Urine Blood (Negative) Ur Leukocyte Esterase (Negative) Urine RBC (0-5) /hpf Urine WBC (0-5) /hpf Urine WBC Clumps (None) /hpf Amorphous Sediment (None) /hpf Urine Bacteria (None) /hpf Urine Mucus (None) /hpf Microbiology - Last 24 Hours (Table) 10/29/21 19:00 Blood Culture Gram Stain - Preliminary Blood 10/29/21 14:10 Urine Culture - Preliminary Urine,Voided 10/29/21 19:00 Blood Culture - Final Blood Assessment and Plan Plan: 1patient is in the hospital after patient did have a fall complaining of weakness did have urinary symptoms positive UA with concern for possible underlying nephritis however the patient was noticed to be tender in the right upper quadrant area underlying other abdominal etiologies need to be ruled out. 2patient with penicillin ALLERGY that would limit the number of antibiotic safety use. 3we will obtain a CT of abdominal pelvis with oral contrast. 4continue with Rocephin while waiting for the cultures to finalize. We will follow on clinical condition and cultures to further adjust medication if needed Thank you for this consultation will follow this patient with you Time with Patient: Greater than 30
--- NOTE | 2021-10-31 09:34 | P.PN ---
Subjective Progress Note Date: 10/31/21 Mirian Briceno, is a 76-year-old female who presented to [facility] emergency room with a chief complaint of confusion and mental status changes, patient had a fall with head trauma at home He was evaluated in the emergency room vital examination on presentation revealed a temperature of 100 heart rate 93 respiration 20 blood pressure 138/71 pulse ox 95% on room air Laboratory data revealed white blood count 10.3 hemoglobin 12.4 platelet count 258 BUN 28 creatinine 1.01 urine analysis revealed evidence of urinary tract infection Testing in the emergency room revealed the head and cervical spine computed tomography scan without contrast was done in the emergency room and did not reveal any acute abnormality, chest x-ray was done in emergency room and revealed suspected pulmonary edema, pelvic x-ray didn't reveal any evidence of acute fracture. EKG revealed sinus rhythm, with left ventricular hypertrophy and left axis deviation. Patient was admitted to medical floor for further evaluation and treatment, she was started on IV Rocephin for urinary tract infection On 10/30/2021 patient is resting comfortably in bed intermittent episodes of confusion. Blood culture positive for gram-negative rods. Infectious disease services have been consulted. White blood cell increasing to 24.8. Patient currently on IV Rocephin. Will order COVID-19 and influenza At this time patient denies chest pain or shortness of breath. Patient denies nausea vomiting or diarrhea. Patient denies any urinary burning or frequency 10/31/2021 patient is resting comfortably in bed denies any acute complaints. White blood cell slightly improving to 16.0. Infectious disease services are following patient remains on IV Rocephin. COVID and influenza negative. BNP is elevated at 6475. 2-D echo has been ordered cardiology services have been consulted. At this time patient denies chest pain or shortness breath. Patient denies nausea vomiting or diarrhea. Patient denies any urinary burning or frequency. Current vitals temp 97.6, heart rate 83, respiratory rate 16, blood pressure 148/87 with a pulse ox of 98% on room air Objective - Vital Signs Vital signs: Vital Signs Temp 97.6 F 10/31/21 08:29 Pulse 83 10/31/21 08:29 Resp 16 10/31/21 08:29 BP 148/87 10/31/21 08:29 Pulse Ox 98 10/31/21 08:29 FiO2 Intake & Output 05/27/22 05/28/22 05/28/22 18:59 06:59 18:59 Intake Total 460 118 Balance 460 118 Intake: Oral 460 118 Other: Voiding Method External Catheter External Catheter # Voids 1 2 - Exam In general patient is alert and oriented ?-3 in no distress HEENT head normocephalic and atraumatic Neck is supple no JVD no goiter no lymphadenopathy no carotid bruit Chest examination is clear to auscultation no crackles no wheezing Cardiac exam reveals regular heart sounds S1 and S2 no gallops no murmurs Abdomen is soft nontender no organomegaly with normal bowel sounds Extremity exam reveals no edema no cyanosis or clubbing Neurological examination reveals no gross focal deficits - Labs CBC & Chem 7: 10/31/21 07:27 10/31/21 07:27 Labs: Abnormal Lab Results - Last 24 Hours (Table) 10/30/21 10/30/21 10/30/21 Range/Units 06:25 06:25 06:25 WBC (3.8-10.6) k/uL Plt Count Comment DECREASED A Immature Gran # 0.43 H (0.00-0.04) X 10*3/uL Neutrophils # 21.09 H (1.80-7.70) X 10*3/uL Lymphocytes # (1.0-4.8) k/uL Monocytes # 1.85 H (0.20-1.00) X 10*3/uL BUN (7-17) mg/dL Est GFR (CKD-EPI)NonAf 55.1 L (60.0-200.0) BUN/Creatinine Ratio 23.90 H (12.00-20.00) Ratio Glucose 217 H (70-110) mg/dL POC Glucose (mg/dL) (75-99) mg/dL Total Bilirubin 0.20 L (0.30-1.20) mg/dL Alkaline Phosphatase 137 H (41-126) U/L NT-Pro-B Natriuret Pep 6475 H (0-450) pg/mL Albumin/Globulin Ratio 1.23 L (1.60-3.17) g/dL 10/30/21 10/30/21 10/30/21 Range/Units 11:46 17:27 20:30 WBC (3.8-10.6) k/uL Plt Count Comment Immature Gran # (0.00-0.04) X 10*3/uL Neutrophils # (1.80-7.70) X 10*3/uL Lymphocytes # (1.0-4.8) k/uL Monocytes # (0.20-1.00) X 10*3/uL BUN (7-17) mg/dL Est GFR (CKD-EPI)NonAf (60.0-200.0) BUN/Creatinine Ratio (12.00-20.00) Ratio Glucose (70-110) mg/dL POC Glucose (mg/dL) 193 H 140 H 122 H (75-99) mg/dL Total Bilirubin (0.30-1.20) mg/dL Alkaline Phosphatase (41-126) U/L NT-Pro-B Natriuret Pep (0-450) pg/mL Albumin/Globulin Ratio (1.60-3.17) g/dL 10/31/21 10/31/21 10/31/21 Range/Units 07:27 07:27 07:53 WBC 16.0 H (3.8-10.6) k/uL Plt Count Comment Immature Gran # (0.00-0.04) X 10*3/uL Neutrophils # 13.1 H (1.80-7.70) X 10*3/uL Lymphocytes # 0.9 L (1.0-4.8) k/uL Monocytes # 1.2 H (0.20-1.00) X 10*3/uL BUN 30 H (7-17) mg/dL Est GFR (CKD-EPI)NonAf (60.0-200.0) BUN/Creatinine Ratio (12.00-20.00) Ratio Glucose 138 H (70-110) mg/dL POC Glucose (mg/dL) 138 H (75-99) mg/dL Total Bilirubin (0.30-1.20) mg/dL Alkaline Phosphatase (41-126) U/L NT-Pro-B Natriuret Pep (0-450) pg/mL Albumin/Globulin Ratio (1.60-3.17) g/dL Microbiology - Last 24 Hours (Table) 10/29/21 19:15 Blood Culture - Preliminary Blood No Growth after 24 hours 10/29/21 19:00 Blood Culture Gram Stain - Preliminary Blood 10/29/21 14:10 Urine Culture - Preliminary Urine,Voided 10/29/21 19:00 Blood Culture - Final Blood Assessment and Plan Assessment: 1. Altered mental status changes 2. Fall at home 3. Urinary tract infection 4. Positive blood culture 5. History of hypertension 6. History of hypothyroidism 7. History of insulin-dependent diabetes mellitus 8. History of osteoarthritis 9. Acute on chronic diastolic congestive heart failure 10. History chronic kidney disease stage III 11. History of atrial fibrillation maintained on eliquis DVT prophylaxis eliquis. GI prophylaxis Protonix Patient started on IV antibiotics Infectious disease service is consulted 2-D echo ordered Cardiology services consulted Repeat labs ordered
[2021-10-31] MEDS: CEFEPIME 2 GM in SODIUM CHLORIDE 0.9% 100 ML IVPB SCH ×2 (10:14→20:41)
--- NOTE | 2021-10-31 11:26 | CA ---
Transthoracic Echo Report Name: Mirian Briceno Age: 76 Gender: F : 1945 Exam Date: 10/31/2021 10:18 Exam Location: [facility] Ht (in): 61 Wt (lb): 180 Ordering Physician: Taina Vergara MD Attending/Referring Phys: Dynamite Cartridge Crimper Elisa Ledesma RDCS Procedure CPT: Indications: chf Cardiac Hx: Technical Quality: Good Contrast 1: Total Dose (mL): Contrast 2: Total Dose (mL): MEASUREMENTS (Male / Female) Normal Values 2D ECHO LV Diastolic Diameter PLAX 4.7 cm 4.2 - 5.9 / 3.9 - 5.3 cm LV Systolic Diameter PLAX 2.6 cm IVS Diastolic Thickness 1.0 cm 0.6 - 1.0 / 0.6 - 0.9 cm LVPW Diastolic Thickness 1.5 cm 0.6 - 1.0 / 0.6 - 0.9 cm LV Relative Wall Thickness 0.5 RV Internal Dim ED PLAX 2.1 cm M-MODE Aortic Root Diameter MM 3.3 cm LA Systolic Diameter MM 3.9 cm LA Ao Ratio MM 1.2 MV E Point Septal Separation 1.0 cm AV Cusp Separation MM 2.2 cm DOPPLER AV Peak Velocity 88.4 cm/s AV Peak Gradient 3.1 mmHg MV Area PHT 4.4 cm??? MR Peak Velocity 92.2 cm/s MR Peak Gradient 3.4 mmHg Mitral E Point Velocity 73.4 cm/s Mitral A Point Velocity 43.6 cm/s Mitral E to A Ratio 1.7 MV Deceleration Time 171.9 ms TR Peak Velocity 274.8 cm/s TR Peak Gradient 30.2 mmHg Right Ventricular Systolic Press 34.3 mmHg FINDINGS Left Ventricle Mildly increased septal wall thickness. Moderately increased posterior wall thickness. Left ventricular ejection fraction is estimated at 55-60 %. Right Ventricle The right ventricle is normal in size and function. Right Atrium The right atrium is normal in size. Left Atrium The left atrium is normal in size. Mitral Valve Structurally normal mitral valve without significant stenosis or prolapse. There is mild mitral regurgitation. Aortic Valve Structurally normal aortic valve without significant sclerosis or stenosis. There is no aortic regurgitation. Tricuspid Valve Structurally normal tricuspid valve without significant stenosis. Pulmonary artery systolic pressure is normal. Moderate tricuspid regurgitation. Pulmonic Valve Structurally normal pulmonic valve without significant stenosis. There is no pulmonic regurgitation. Pericardium Small pericardial effusion. Aorta Normal aortic root dimension. CONCLUSIONS Concentric left ventricular hypertrophy with normal LV systolic function. Mild mitral regurgitation. Moderate tricuspid regurgitation. Normal pulmonary pressure. Previewed by: Dr. Jensen Arana MD (Electronically Signed) Final Date: 31 Oct 2021 11:25
[2021-10-31 12:00] LABS: Glucose,Whole Blood 209 mg/dL (75-99)
--- NOTE | 2021-10-31 12:34 | P.CRDCN ---
History of Present Illness Consult date: 10/31/21 History of present illness: This is a 76-year-old woman with multiple medical conditions including proximal atrial fibrillation, diabetes, dementia, renal disease, rheumatoid arthritis, thyroid disorder, pulmonary hypertension who is brought into the ER when she was found on the bathroom floor by her family. Patient follows with Dr. Crump in [place]. Patient was confused and alert and orientated 1, her baseline is alert and orientated 4. Patient was found to be covered in urine. It was unsure whether or not she fell or had a syncopal episode. We have been consult to see the patient due to possible CHF exacerbation and syncopal episode. Her chest x-ray showed suspected pulmonary edema and her proBNP was 6475. Patient does not have any symptoms correlating with congestive heart failure. She denies shortness of breath, chest pain, lower extremity edema. She had an echocardiogram in June of this year which showed normal LV function with an ejection fraction of 55-60% with mild tricuspid regurgitation. Her echocardiograma shows concentrated left ventricular hypertrophy with a normal LV function mild mitral regurgitation mild tricuspid regurgitation and normal pulmonary pressure. She is not believed to be in acute heart failure. Patient's troponins were negative. EKG shows sinus rhythm with left axis deviation no change from prior. Patient is on Eliquis for atrial fibrillation. Her CT of the head and neck was negative for acute process. Review of Systems REVIEW OF SYSTEMS At the time of my exam patient is a no 1 and information is limited due to her being unable to answer questions: CONSTITUTIONAL: Denies fever or chills. EYES: Negative for vision changes ENT: Negative for hearing loss CARDIOVASCULAR: Denies chest pain, shortness of breath, diaphoresis, orthopnea, PND or palpitations. VASCULAR: Denies edema RESPIRATORY: Denies cough. GASTROINTESTINAL: Denies abdominal pain, diarrhea, constipation, nausea or vomiting. MUSCULOSKELETAL: Denies myalgias. NEUROLOGIC: Denies numbness, tingling, headache or weakness. ENDOCRINE: Denies fatigue, weight change, polydipsia or polyurina. GENITOURINARY: Denies burning, hematuria or urgency with micturation. HEMATOLOGIC: Denies history of anemia or bleeding. DERMATOLOGY: Denies rash or skin sores PSYCH: Negative for depression or hallucinations. Past Medical History Past Medical History: Atrial Fibrillation, Chest Pain / Angina, Dementia, Diabetes Mellitus, Eye Disorder, Fibromyalgia, GERD/Reflux, Hyperlipidemia, Hypertension, Osteoarthritis (OA), Pneumonia, Renal Disease, Rheumatoid Arthri tis (RA), Thyroid Disorder Additional Past Medical History / Comment(s): Mild glaucoma stable. BURSITIS, hx falls, past chronic sacral wound, occ Vertigo, anemia, Constipation History of Any Multi-Drug Resistant Organisms: None Reported Past Surgical History: Adenoidectomy, Cholecystectomy, Hysterectomy, Joint Replacement, Orthopedic Surgery, Tonsillectomy Additional Past Surgical History / Comment(s): 3 RIGHT KNEE SURGERIES AND 2 LEFT, TOTAL KNEE REPLACEMENTS SURGERIES. D&C'S. Lap Ignacio-en-Y gastric bypass [place] [address] Zambrano , total hysterectomy for fibroid tumor, tubal ligation Past Anesthesia/Blood Transfusion Reactions: Motion Sickness Additional Past Anesthesia/Blood Transfusion Reaction / Comment(s): Pt received blood in 2012 without reaction. Past Psychological History: Depression Smoking Status: Never smoker Past Alcohol Use History: None Reported Past Drug Use History: None Reported - Past Family History Mother Family Medical History: Coronary Artery Disease (CAD) Additional Family Medical History / Comment(s): age 90 of heart failure. H ad hx of Parkinsons and Narcolepsy Father Family Medical History: Coronary Artery Disease (CAD) Additional Family Medical History / Comment(s): age 73 of massive heart attack Medications and Allergies Home Medications Medication Instructions Recorded Confirmed Type Bumetanide [BUMEX] 1 mg PO BID@0900,1200 10/02/14 10/29/21 History Pantoprazole Sodium 40 mg PO W/BRKFST 10/02/14 10/29/21 History DULoxetine HCL [Cymbalta] 60 mg PO HS 04/16/15 10/29/21 History traZODone HCL [Desyrel] 50 mg PO HS 06/06/15 10/29/21 History Gabapentin [Neurontin] 100 mg PO BID@1200,1700 12/16/16 10/29/21 History Apixaban [Eliquis] 5 mg PO BID-W/MEALS 09/27/18 10/29/21 History Pravastatin Sodium [Pravachol] 20 mg PO W/SUPPER 09/27/18 10/29/21 History carvediloL [Coreg] 6.25 mg PO BID-W/MEALS 05/01/19 10/29/21 History HYDROcodone/APAP 5-325MG [Jackson 1 tab PO BID@0900,2100 12/31/20 10/29/21 History 5-325] Levothyroxine Sodium [Synthroid] 125 mcg PO DAILY@0800 12/31/20 10/29/21 History Milk Thistle 250mg 250 mg PO BID@1200,1700 12/31/20 10/29/21 History amLODIPine [Norvasc] 5 mg PO BID-W/MEALS 12/31/20 10/29/21 History hydrALAZINE HCL [Apresoline] 10 mg PO BID-W/MEALS 12/31/20 10/29/21 History Aspirin 81 mg PO W/LUNCH 03/15/21 10/29/21 History Cholecalciferol (Vitamin D3) 125 mcg PO HS 03/15/21 10/29/21 History [Vitamin D3 (125 MCG = 5,000 IU)] Cyanocobalamin (Vitamin B-12) 500 mcg PO Q48H 03/15/21 10/29/21 History [Vitamin B-12] Acetaminophen [Tylenol] 500 mg PO TID PRN 06/24/21 10/29/21 History Cinnamon 250mg 250 mg PO BID@0900,1200 06/24/21 10/29/21 History Diclofenac Sodium Gel [Voltaren 2 gm TOPICAL DAILY PRN 06/24/21 10/29/21 History Gel] Insulin Aspart [NovoLOG Flexpen] 12 units SQ BID-W/MEALS 06/24/21 10/29/21 History Insulin Detemir [Levemir Flextouch 14 units SQ HS 06/24/21 10/29/21 History Pen] Latanoprost/Pf [Latanoprost 0.005% 1 drop BOTH EYES HS 06/24/21 10/29/21 History Eye Drop] calcitrioL [Rocaltrol] 0.25 mcg PO BHATTI 06/24/21 10/29/21 History Fluticasone Nasal [place] [Flonase 2 spray EA NOSTRIL DAILY PRN 10/29/21 10/29/21 History Nasal [place]] Insulin Aspart [NovoLOG Flexpen] 5 units SQ W/LUNCH PRN 10/29/21 10/29/21 History Mupirocin 2% Oint [Bactroban 2% 1 applic TOPICAL TID 10/29/21 10/29/21 History Oint] clindamycin HCL [Cleocin] 600 mg PO DIRECTED PRN 10/29/21 10/29/21 History diphenhydrAMINE HCL [Benadryl] 25 mg PO DAILY PRN 10/29/21 10/29/21 History Allergies Allergy/AdvReac Type Severity Reaction Status Date / Time adhesive tape Allergy Rash/Hives Verified 10/29/21 17:33 Penicillins Allergy Anaphylaxis Verified 10/29/21 17:33 triamcinolone Allergy Unknown Verified 10/29/21 17:33 venom-honey bee Allergy Swelling Verified 10/29/21 17:33 caffeine AdvReac Nausea & Verified 10/29/21 17:33 Vomiting & Diarrhea hydrocodone bitartrate AdvReac Itching Verified 10/29/21 17:33 [From Lorcet (hydrocodone)] tramadol HCl [From Ultram] AdvReac Itching Verified 10/29/21 17:33 Physical Exam Vitals: Vital Signs Temp Pulse Resp BP Pulse Ox 10/31/21 08:29 97.6 F 83 16 148/87 98 10/31/21 02:11 97.7 F 78 17 132/77 95 10/31/21 02:06 67 16 10/30/21 20:35 67 16 10/30/21 20:29 97.8 F 72 18 100/63 97 10/30/21 14:00 16 10/30/21 13:10 98.7 F 67 16 117/73 98 Intake and Output 10/30/21 10/31/21 10/31/21 22:59 06:59 14:59 Intake Total 118 Balance 118 Intake: Oral 118 Other: Voiding Method External Catheter External Catheter # Voids 1 2 PHYSICAL EXAMINATION VITAL SIGNS: Reviewed General: The patient is awake and alert to person, in no distress, and does not appear acutely ill. Skin: Skin is warm and dry and no rashes or lesions are noted. Eye: Pupils are equal, round and reactive to light, extra-ocular movements are intact; there is normal conjunctiva bilaterally. Ears, nose, mouth and throat: There are moist mucous membranes and no oral lesions. Neck: The neck is supple, there is no tenderness or JVD. Cardiovascular: There is irregular regular rate and rhythm. No murmur, rub or gallop is appreciated. Respiratory: Lungs are clear to auscultation, respirations are non-labored, breath sounds are equal. Gastrointestinal: Soft, non-distended, non-tender abdomen without masses or organomegaly noted. There is no rebound or guarding present. Bowel sounds are unremarkable. Back: There is no tenderness to palpation in the midline. There is no obvious deformity. Musculoskeletal: Normal ROM, no tenderness, There is no pedal edema. There is no calf tenderness or swelling. Extremities: Mild bilateral pitting edema Vascular: Femoral pulse is normal. Posterior tibial pulses are normal .Dorsalis pedis is palpable. Neurological: CN II-XII intact. There are no obvious motor or sensory deficits. Speech is normal. Psychiatric: Cooperative, appropriate mood & affect, normal judgment Results 10/31/21 07:27 10/31/21 07:27 Cardiac Enzymes 10/31/21 Range/Units 07:27 AST 33 (14-36) U/L CBC 10/31/21 Range/Units 07:27 WBC 16.0 H (3.8-10.6) k/uL RBC 3.92 (3.80-5.40) m/uL Hgb 12.2 (11.4-16.0) gm/dL Hct 38.5 (34.0-46.0) % Plt Count 196 (150-450) k/uL Comprehensive Metabolic Panel 10/31/21 Range/Units 07:27 Sodium 139 (137-145) mmol/L Potassium 4.4 (3.5-5.1) mmol/L Chloride 104 (98-107) mmol/L Carbon Dioxide 27 (22-30) mmol/L BUN 30 H (7-17) mg/dL Creatinine 0.90 (0.52-1.04) mg/dL Glucose 138 H (74-99) mg/dL Calcium 9.5 (8.4-10.2) mg/dL AST 33 (14-36) U/L ALT 25 (4-34) U/L Alkaline Phosphatase 123 (38-126) U/L Total Protein 6.4 (6.3-8.2) g/dL Albumin 3.5 (3.5-5.0) g/dL Current Medications Generic Name Dose Route Start Last Admin Trade Name Freq PRN Reason Stop Dose Admin Acetaminophen 500 mg 10/29/21 20:06 10/30/21 08:21 Acetaminophen Tab 500 Mg Tab PO 500 mg TID PRN Administration Pain Hydrocodone Bitart/Acetaminophen 1 each 10/29/21 21:00 10/31/21 09:13 Hydrocodone/Apap 5-325mg 1 Each Tab PO 1 each BID@0900,2100 [facility] Administration Amlodipine Besylate 5 mg 10/30/21 07:30 10/31/21 09:06 Amlodipine 5 Mg Tab PO 5 mg BID-W/MEALS [facility] Administration Apixaban 5 mg 10/30/21 07:30 10/31/21 09:06 Apixaban 5 Mg Tab PO 5 mg BID-W/MEALS [facility] Administration Protocol Aspirin 81 mg 10/30/21 12:30 10/30/21 12:51 Aspirin 81 Mg PO 81 mg W/LUNCH [facility] Administration Bumetanide 1 mg 10/30/21 09:00 10/31/21 09:07 Bumetanide 1 Mg Tab PO 1 mg BID@0900,1200 [facility] Administration Calcitriol 0.25 mcg 11/01/21 09:00 Calcitriol 0.25 Mcg Cap PO BHATTI [facility] Carvedilol 6.25 mg 10/30/21 07:30 10/31/21 09:06 Carvedilol 6.25 Mg Tab PO 6.25 mg BID-W/MEALS [facility] Administration Cholecalciferol 125 mcg 10/29/21 21:00 10/30/21 20:34 Cholecalciferol 25 Mcg (1000 Iu) Tablet PO 125 mcg HS [facility] Administration Cyanocobalamin 500 mcg 10/30/21 09:00 10/30/21 08:44 Cyanocobalamin 500 Mcg Tab PO 500 mcg Q48H [facility] Administration Diphenhydramine HCl 25 mg 10/29/21 20:06 Diphenhydramine 25 Mg Cap PO DAILY PRN Allergy Symptoms Duloxetine HCl 60 mg 10/29/21 21:00 10/30/21 20:35 Duloxetine Hcl 60 Mg Capsule.Dr PO 60 mg HS BUT[facility] Administration Fluticasone Propionate 2 spray 10/29/21 20:06 Fluticasone 50mcg/[place] Nasal 16gm EA NOSTRIL DAILY PRN Allergy Symptoms Gabapentin 100 mg 10/30/21 12:00 10/30/21 17:51 Gabapentin 100 Mg Cap PO 100 mg BID@1200,1700 [facility] Administration Hydralazine HCl 10 mg 10/30/21 07:30 10/31/21 09:06 Hydralazine Hcl 10 Mg Tab PO 10 mg BID-W/MEALS [facility] Administration Cefepime HCl 2 gm/ Sodium 100 mls @ 25 mls/hr 10/31/21 09:30 10/31/21 10:14 Chloride IVPB 25 mls/hr Q12HR [facility] Administration Protocol Insulin Aspart 12 unit 10/30/21 07:30 10/31/21 09:05 Insulin Aspart (Novolog) 100 Unit/Ml Vial SQ 12 unit BID-W/MEALS [facility] Administration Insulin Aspart 5 unit 10/29/21 20:06 Insulin Aspart (Novolog) 100 Unit/Ml Vial SQ W/LUNCH PRN IF EATING LUNCH Insulin Detemir 14 unit 10/29/21 21:00 10/30/21 20:33 Insulin Detemir (Levemir) 100 Unit/Ml Syr SQ Not Given HS [facility] Latanoprost 1 drops 10/29/21 21:00 10/30/21 20:35 Latanoprost 0.005% Ophth Drops 2.5 Ml Btl BOTH EYES 1 drops HS [facility] Administration Levothyroxine Sodium 125 mcg 10/30/21 08:00 10/31/21 09:06 Levothyroxine 125 Mcg Tab PO 125 mcg DAILY@0800 [facility] Administration Naloxone HCl 0.2 mg 10/29/21 15:49 Naloxone 0.4 Mg/Ml 1 Ml Vial IV Q2M PRN Opioid Reversal Non-Formulary Medication 250 mg 10/30/21 09:00 10/31/21 09:07 Cinnamon 250mg PO Not Given BID@0900,1200 [facility] Non-Formulary Medication 250 mg 10/30/21 12:00 10/30/21 17:35 Milk Thistle 250mg PO Not Given BID@1200,1700 [facility] Pantoprazole Sodium 40 mg 10/30/21 07:30 10/31/21 09:06 Pantoprazole 40 Mg Tablet PO 40 mg W/BRKFST [facility] Administration Pravastatin Sodium 20 mg 10/30/21 17:30 10/30/21 17:52 Pravastatin Sodium 20 Mg Tab PO 20 mg W/SUPPER [facility] Administration Trazodone HCl 50 mg 10/29/21 21:00 10/30/21 20:35 Trazodone Hcl 50 Mg Tab PO 50 mg HS BUTCH Administration Intake and Output 10/30/21 10/31/21 10/31/21 22:59 06:59 14:59 Intake Total 118 Balance 118 Intake: Oral 118 Other: Voiding Method External Catheter External Catheter # Voids 1 2 10/31/21 07:27 10/31/21 07:27 Assessment and Plan Assessment: Syncopal episode Proximal atrial fibrillation Urinary tract infection with concerns for possible underlying nephritis Plan: Reviewed echocardiogram Continue with Eliquis Continue with all current cardiac medications Will continue with telemetry monitoring Further recommendations based on clinical course The above impression and plan of care have been discussed and directed by the signing physician. Nika Langston, nurse practitioner, acting as scribe for signing physician.
[2021-10-31] MEDS: MILK THISTLE PO SCH ×2 (12:47→17:48)
[2021-10-31] MEDS: GABAPENTIN 100 MG CAP PO SCH ×2 (12:51→17:59)
[2021-10-31] MEDS: INSULIN ASPART (NovoLOG) 100 UNIT/ML VIAL SQ PRN (12:51)
[2021-10-31] MEDS: ASPIRIN 81 MG PO SCH (12:51)
[2021-10-31 17:07] LABS: Glucose,Whole Blood 190 mg/dL (75-99)
[2021-10-31] MEDS: PRAVASTATIN SODIUM 20 MG TAB PO SCH (17:59)
[2021-10-31 19:31] LABS: Glucose,Whole Blood 172 mg/dL (75-99)
[2021-10-31] MEDS: DULoxetine HCL 60 MG CAPSULE.DR PO SCH (20:41)
[2021-10-31] MEDS: CHOLECALCIFEROL 25 MCG (1000 IU) TABLET PO SCH (20:41)
[2021-10-31] MEDS: LATANOPROST 0.005% OPHTH DROPS 2.5 ML BTL BOTH EYES SCH (20:42)
[2021-10-31] MEDS: traZODone HCL 50 MG TAB PO SCH (20:42)
[2021-10-31] MEDS: INSULIN DETEMIR (LEVEMIR) 100 UNIT/ML SYR SQ SCH (20:42)
--- NOTE | 2021-10-31 22:22 | P.PN ---
Subjective Progress Note Date: 10/31/21 Principal diagnosis: Right-sided pyelonephritis with bacteremia Patient is a 76-year-old patient female presented to the hospital with weakness follow in this patient noticed to have elevated white count and positive UA, concerning for symptomatic UTI CT abdominal pelvis suspicious for right-sided pyelonephritis, blood cultures reported positive for gram-negative bacilli On today's evaluation that is 10/31/2021, the patient denies having any fevers or any chills, the patient is breathing comfortably, denies any chest pain shortness of breath or cough no nausea no vomiting no abdominal pain or diarrhea Objective - Vital Signs Vital signs: Vital Signs Temp 97.5 F L 10/31/21 14:11 Pulse 75 10/31/21 14:11 Resp 16 10/31/21 14:11 BP 115/65 10/31/21 14:11 Pulse Ox 97 10/31/21 14:11 FiO2 Intake & Output 10/31/21 10/31/21 11/01/21 06:59 18:59 06:59 Intake Total 386 Balance 386 Intake: Intake, IV Titration 150 Amount Cefepime 2 gm In Sodium 100 Chloride 0.9% 100 ml @ 25 mls/hr IVPB Q12HR [facility] Rx #:[id number] cefTRIAXone 1 gm In 50 Sodium Chloride 0.9% 50 ml @ 100 mls/hr IVPB Q24HR [facility] Rx#:[id number] Oral 236 Other: Voiding Method External Catheter # Voids 2 - Exam GENERAL DESCRIPTION: An elderly female lying in bed in no distress RESPIRATORY SYSTEM: Unlabored breathing , decreased breath sounds at bases HEART: S1 S2 regular rate and rhythm , ABDOMEN: Soft , no tenderness EXTREMITIES: No edema feet - Labs CBC & Chem 7: 10/31/21 07:27 10/31/21 07:27 Labs: Abnormal Lab Results - Last 24 Hours (Table) 10/30/21 10/31/21 10/31/21 Range/Units 20:30 07:27 07:27 WBC 16.0 H (3.8-10.6) k/uL Neutrophils # 13.1 H (1.3-7.7) k/uL Lymphocytes # 0.9 L (1.0-4.8) k/uL Monocytes # 1.2 H (0-1.0) k/uL BUN 30 H (7-17) mg/dL Glucose 138 H (74-99) mg/dL POC Glucose (mg/dL) 122 H (75-99) mg/dL 10/31/21 10/31/21 10/31/21 Range/Units 07:53 11:56 17:06 WBC (3.8-10.6) k/uL Neutrophils # (1.3-7.7) k/uL Lymphocytes # (1.0-4.8) k/uL Monocytes # (0-1.0) k/uL BUN (7-17) mg/dL Glucose (74-99) mg/dL POC Glucose (mg/dL) 138 H 209 H 190 H (75-99) mg/dL 10/31/21 Range/Units 19:29 WBC (3.8-10.6) k/uL Neutrophils # (1.3-7.7) k/uL Lymphocytes # (1.0-4.8) k/uL Monocytes # (0-1.0) k/uL BUN (7-17) mg/dL Glucose (74-99) mg/dL POC Glucose (mg/dL) 172 H (75-99) mg/dL Microbiology - Last 24 Hours (Table) 10/29/21 14:10 Urine Culture - Preliminary Urine,Voided Gram Neg Bacilli 10/29/21 19:00 Blood Culture Gram Stain - Preliminary Blood Blood Culture - Preliminary Gram Neg Bacilli 10/29/21 19:15 Blood Culture - Preliminary Blood No Growth after 24 hours Assessment and Plan (1) Bacteremia Current Visit: Yes Status: Acute Code(s): R78.81 - BACTEREMIA SNOMED Code(s): 0656519 (2) UTI (urinary tract infection) Current Visit: Yes Status: Acute Code(s): N39.0 - URINARY TRACT INFECTION, SITE NOT SPECIFIED SNOMED Code(s): 51276005 Plan: 1patient is in the hospital after patient did have a fall complaining of weakness did have urinary symptoms positive UA with concern for possible underlying pyelonephritis which has been confirmed on a CT in no other acute abnormality 2patient with penicillin ALLERGY that would limit the number of antibiotic safety use. 3gram-negative bacteremia likely secondary to right-sided pyelonephritis. 4discontinue Rocephin and start the patient on cefepime while waiting for the cultures to finalize Time with Patient: Less than 30
[2021-11-01 07:24] LABS: Glucose,Whole Blood 71 mg/dL (75-99)
[2021-11-01] MEDS: INSULIN ASPART (NovoLOG) 100 UNIT/ML VIAL SQ SCH ×2 (08:23→17:59)
[2021-11-01 09:24] LABS: Basophils # (A) 0.06 X 10*3/uL (0.00-0.10); Basophils % (A) 0.5 %; Eosinophils # (A) 0.46 X 10*3/uL (0.04-0.35); HCT 36.5 % (37.2-46.3); HGB 11.2 g/dL (12.0-15.0); Immature Grans, Automated 0.4 %; Lymphocytes # (A) 1.03 X 10*3/uL (0.90-5.00); Lymphocytes % (A) 8.9 %; MCH 29.8 pg (27.0-32.0); MCHC 30.7 g/dL (32.0-37.0); MCV 97.1 fL (80.0-97.0); Mean Platelet Volume 11.4 fL (9.5-12.2); Monocytes # (A) 1.44 X 10*3/uL (0.20-1.00); Monocytes % (A) 12.5 %; NRBC Per 100 WBC 0 /100 WBCS (0.0-0.0); Neutrophils % (A) 73.7 %; Platelet Count 244 X 10*3/uL (140-440); RBC 3.76 X 10*6/uL (4.10-5.20); RDW 14.3 % (11.5-14.5); WBC 11.54 X 10*3/uL (4.50-10.00)
[2021-11-01 09:28] LABS: ALT 24 U/L (8-44); AST 23 U/L (13-35); African American GFR (CKD) 78.9 (60.0-200.0); Albumin 3.5 g/dL (3.8-4.9); Albumin/Globulin Ratio 1.26 (1.60-3.17); Alkaline Phosphatase 113 U/L (41-126); BUN/Creat Ratio 27.65 Ratio (12.00-20.00); Blood Urea Nitrogen 23.2 mg/dL (9.0-27.0); Calcium 9.4 mg/dL (8.7-10.3); Carbon Dioxide 27.5 mmol/L (20.0-27.5); Chloride 101 mmol/L (96-109); Globulin 2.8 g/dL (1.6-3.3); Glucose 68 mg/dL (70-110); Non-African American GFR(CKD) 68.1 (60.0-200.0); Potassium 3.6 mmol/L (3.5-5.5); Sodium 140 mmol/L (135-145); Total Bilirubin <0.15 mg/dL (0.30-1.20); Total Protein 6.2 g/dL (6.2-8.2)
[2021-11-01] MEDS: CYANOCOBALAMIN 500 MCG TAB PO SCH (09:32)
[2021-11-01] MEDS: APIXABAN 5 MG TAB PO SCH ×2 (09:32→17:59)
[2021-11-01] MEDS: amLODIPine 5 MG TAB PO SCH ×2 (09:32→17:59)
[2021-11-01] MEDS: PANTOPRAZOLE 40 MG TABLET PO SCH (09:32)
[2021-11-01] MEDS: BUMETANIDE 1 MG TAB PO SCH ×2 (09:33→11:48)
[2021-11-01] MEDS: LEVOTHYROXINE 125 MCG TAB PO SCH (09:33)
[2021-11-01] MEDS: hydrALAZINE HCL 10 MG TAB PO SCH ×2 (09:33→18:00)
[2021-11-01] MEDS: CINNAMON PO SCH ×2 (09:34→11:48)
[2021-11-01] MEDS: HYDROcodone/APAP 5-325MG 1 EACH TAB PO SCH ×2 (09:35→20:38)
[2021-11-01] MEDS: carvediloL 6.25 MG TAB PO SCH ×2 (09:38→17:59)
[2021-11-01] MEDS: CEFEPIME 2 GM in SODIUM CHLORIDE 0.9% 100 ML IVPB SCH ×2 (09:42→20:39)
--- NOTE | 2021-11-01 11:27 | P.PN ---
Subjective Progress Note Date: 11/01/21 This is a 76-year-old woman with multiple medical conditions including proximal atrial fibrillation, diabetes, dementia, renal disease, rheumatoid arthritis, thyroid disorder, pulmonary hypertension who is brought into the ER when she was found on the bathroom floor by her family. Patient follows with Dr. Crump in [place]. Seen today resting comfortably in bed with her at the bedside. He remains confused, alert and orientated 1. Patient denies chest pain or should increased shortness of breath. Her echocardiogram showed normal LV function with mild mitral regurgitation and moderate tricuspid regurgitation. She has not had any noted bradycardia or tachyarrhythmias on a alarm security or surveillance monitor area and she remains in sinus rhythm. She has not had any additional episodes of syn cope. Her blood cultures are still pending. Her urine cultures were positive. Patient has right pyelonephritis. Objective - Vital Signs Vital signs: Vital Signs Temp 98.2 F 11/01/21 08:12 Pulse 75 11/01/21 08:12 Resp 16 11/01/21 09:32 BP 148/79 11/01/21 08:12 Pulse Ox 93 L 11/01/21 08:12 FiO2 Intake & Output 10/31/21 11/01/21 11/01/21 18:59 06:59 18:59 Intake Total 386 118 Balance 386 118 Intake: Intake, IV Titration 150 Amount Cefepime 2 gm In Sodium 100 Chloride 0.9% 100 ml @ 25 mls/hr IVPB Q12HR [facility] Rx #:[id number] cefTRIAXone 1 gm In 50 Sodium Chloride 0.9% 50 ml @ 100 mls/hr IVPB Q24HR [facility] Rx#:[id number] Oral 236 118 Other: Voiding Method External Catheter Toilet # Voids 1 1 - Exam PHYSICAL EXAM: VITAL SIGNS: Reviewed. GENERAL: Well-developed in no acute distress. HEENT: Head is normocephalic. Pupils are equal, round. Sclerae anicteric. Mucous membranes of the mouth are moist. NECK: Supple. No JVD or thyromegaly RESPIRATORY: Respirations even and unlabored. Lungs diminished to auscultation bilaterally. CARDIO: Regular rate and rhythm. S1 and S2 heard. No murmur or gallops. EXTREMITIES: Normal range of motion. No clubbing or cyanosis. Peripheral pulses intact. Negative for bilateral lower extremity edema NEURO: Orientated to person, mood is appropriate - Labs CBC & Chem 7: 11/01/21 06:21 11/01/21 06:21 Labs: Abnormal Lab Results - Last 24 Hours (Table) 10/31/21 10/31/21 10/31/21 Range/Units 11:56 17:06 19:29 WBC (4.50-10.00) X 10*3/uL RBC (4.10-5.20) X 10*6/uL Hgb (12.0-15.0) g/dL Hct (37.2-46.3) % MCV (80.0-97.0) fL MCHC (32.0-37.0) g/dL Immature Gran # (0.00-0.04) X 10*3/uL Neutrophils # (1.80-7.70) X 10*3/uL Monocytes # (0.20-1.00) X 10*3/uL Eosinophils # (0.04-0.35) X 10*3/uL BUN/Creatinine Ratio (12.00-20.00) Ratio Glucose (70-110) mg/dL POC Glucose (mg/dL) 209 H 190 H 172 H (75-99) mg/dL Total Bilirubin (0.30-1.20) mg/dL Albumin (3.8-4.9) g/dL Albumin/Globulin Ratio (1.60-3.17) g/dL 11/01/21 11/01/21 11/01/21 Range/Units 06:21 06:21 07:23 WBC 11.54 H (4.50-10.00) X 10*3/uL RBC 3.76 L (4.10-5.20) X 10*6/uL Hgb 11.2 L (12.0-15.0) g/dL Hct 36.5 L (37.2-46.3) % MCV 97.1 H (80.0-97.0) fL MCHC 30.7 L (32.0-37.0) g/dL Immature Gran # 0.05 H (0.00-0.04) X 10*3/uL Neutrophils # 8.50 H (1.80-7.70) X 10*3/uL Monocytes # 1.44 H (0.20-1.00) X 10*3/uL Eosinophils # 0.46 H (0.04-0.35) X 10*3/uL BUN/Creatinine Ratio 27.65 H (12.00-20.00) Ratio Glucose 68 L (70-110) mg/dL POC Glucose (mg/dL) 71 L (75-99) mg/dL Total Bilirubin <0.15 L (0.30-1.20) mg/dL Albumin 3.5 L (3.8-4.9) g/dL Albumin/Globulin Ratio 1.26 L (1.60-3.17) g/dL Microbiology - Last 24 Hours (Table) 10/29/21 19:15 Blood Culture - Preliminary Blood No Growth after 48 hours 10/29/21 14:10 Urine Culture - Preliminary Urine,Voided Gram Neg Bacilli 10/29/21 19:00 Blood Culture Gram Stain - Preliminary Blood Blood Culture - Preliminary Gram Neg Bacilli Assessment and Plan Assessment: Syncopal episode Proximal atrial fibrillation Urinary tract infection with concerns for possible underlying nephritis Plan: Reviewed echocardiogram Continue with Eliquis Continue with all current cardiac medications Will continue with telemetry monitoring Continue to follow with infectious disease for pyelonephritis and positive cultures Further recommendations based on clinical course The above impression and plan of care have been discussed and directed by the signing physician. Nika Langston, nurse practitioner, acting as scribe for signing physician.
[2021-11-01] MEDS: MILK THISTLE PO SCH ×2 (11:48→18:00)
[2021-11-01] MEDS: ASPIRIN 81 MG PO SCH (11:48)
[2021-11-01] MEDS: GABAPENTIN 100 MG CAP PO SCH ×2 (11:48→18:01)
[2021-11-01 11:57] LABS: Glucose,Whole Blood 163 mg/dL (75-99)
--- NOTE | 2021-11-01 12:37 | P.PN ---
Subjective Progress Note Date: 11/01/21 Mirian Briceno, is a 76-year-old female who presented to [facility] emergency room with a chief complaint of confusion and mental status changes, patient had a fall with head trauma at home He was evaluated in the emergency room vital examination on presentation revealed a temperature of 100 heart rate 93 respiration 20 blood pressure 138/71 pulse ox 95% on room air Laboratory data revealed white blood count 10.3 hemoglobin 12.4 platelet count 258 BUN 28 creatinine 1.01 urine analysis revealed evidence of urinary tract infection Testing in the emergency room revealed the head and cervical spine computed tomography scan without contrast was done in the emergency room and did not reve al any acute abnormality, chest x-ray was done in emergency room and revealed suspected pulmonary edema, pelvic x-ray didn't reveal any evidence of acute fracture. EKG revealed sinus rhythm, with left ventricular hypertrophy and left axis deviation. Patient was admitted to medical floor for further evaluation and treatment, she was started on IV Rocephin for urinary tract infection On 10/30/2021 patient is resting comfortably in bed intermittent episodes of confusion. Blood culture positive for gram-negative rods. Infectious disease services have been consulted. White blood cell increasing to 24.8. Patient currently on IV Rocephin. Will order COVID-19 and influenza At this time daniel ent denies chest pain or shortness of breath. Patient denies nausea vomiting or diarrhea. Patient denies any urinary burning or frequency 10/31/2021 patient is resting comfortably in bed denies any acute complaints. White blood cell slightly improving to 16.0. Infectious disease services are fo llowing patient remains on IV Rocephin. COVID and influenza negative. BNP is elevated at 6475. 2-D echo has been ordered cardiology services have been consulted. At this time patient denies chest pain or shortness breath. Patient denies nausea vomiting or diarrhea. Patient denies any urinary burning or frequency. Current vitals temp 97.6, heart rate 83, respiratory rate 16, blood pressure 148/87 with a pulse ox of 98% on room air. On 11/01/2021 patient was seen and examined on the medical floor she is alert and oriented 3 in no apparent distress, she denies any complaints at this time there is no fever or chills no headache or dizziness no chest pain no shortness of breath no cough no nausea or vomiting no abdominal pain no diarrhea and no urinary symptoms, vital examination reveals a temperature of 98.2 pulse 75 respiration 16 blood pressure 148/79 pulse ox 93% on room air, white blood count today is 11.54 down from 16.0 yesterday hemoglobin 11.2 platelet count 244 BUN 23 creatinine 0.8 Objective - Vital Signs Vital signs: Vital Signs Temp 98.2 F 11/01/21 08:12 Pulse 75 11/01/21 08:12 Resp 16 11/01/21 09:32 BP 148/79 11/01/21 08:12 Pulse Ox 93 L 11/01/21 08:12 FiO2 Intake & Output 10/31/21 11/01/21 11/01/21 18:59 06:59 18:59 Intake Total 386 118 Balance 386 118 Intake: Intake, IV Titration 150 Amount Cefepime 2 gm In Sodium 100 Chloride 0.9% 100 ml @ 25 mls/hr IVPB Q12HR [facility] Rx #:[id number] cefTRIAXone 1 gm In 50 Sodium Chloride 0.9% 50 ml @ 100 mls/hr IVPB Q24HR [facility] Rx#:[id number] Oral 236 118 Other: Voiding Method External Catheter Toilet # Voids 1 1 - Exam In general patient is alert and oriented x 3 in no distress HEENT head normocephalic and atraumatic Neck is supple no JVD no goiter no lymphadenopathy no carotid bruit Chest examination is clear to auscultation no crackles no wheezing Cardiac exam reveals regular heart sounds S1 and S2 no gallops no murmurs Abdomen is soft nontender no organomegaly with normal bowel sounds Extremity exam reveals no edema no cyanosis or clubbing Neurological examination reveals no gross focal deficits - Labs CBC & Chem 7: 11/01/21 06:21 11/01/21 06:21 Labs: Abnormal Lab Results - Last 24 Hours (Table) 10/31/21 10/31/21 11/01/21 Range/Units 17:06 19:29 06:21 WBC 11.54 H (4.50-10.00) X 10*3/uL RBC 3.76 L (4.10-5.20) X 10*6/uL Hgb 11.2 L (12.0-15.0) g/dL Hct 36.5 L (37.2-46.3) % MCV 97.1 H (80.0-97.0) fL MCHC 30.7 L (32.0-37.0) g/dL Immature Gran # 0.05 H (0.00-0.04) X 10*3/uL Neutrophils # 8.50 H (1.80-7.70) X 10*3/uL Monocytes # 1.44 H (0.20-1.00) X 10*3/uL Eosinophils # 0.46 H (0.04-0.35) X 10*3/uL BUN/Creatinine Ratio (12.00-20.00) Ratio Glucose (70-110) mg/dL POC Glucose (mg/dL) 190 H 172 H (75-99) mg/dL Total Bilirubin (0.30-1.20) mg/dL Albumin (3.8-4.9) g/dL Albumin/Globulin Ratio (1.60-3.17) g/dL 11/01/21 11/01/21 11/01/21 Range/Units 06:21 07:23 11:55 WBC (4.50-10.00) X 10*3/uL RBC (4.10-5.20) X 10*6/uL Hgb (12.0-15.0) g/dL Hct (37.2-46.3) % MCV (80.0-97.0) fL MCHC (32.0-37.0) g/dL Immature Gran # (0.00-0.04) X 10*3/uL Neutrophils # (1.80-7.70) X 10*3/uL Monocytes # (0.20-1.00) X 10*3/uL Eosinophils # (0.04-0.35) X 10*3/uL BUN/Creatinine Ratio 27.65 H (12.00-20.00) Ratio Glucose 68 L (70-110) mg/dL POC Glucose (mg/dL) 71 L 163 H (75-99) mg/dL Total Bilirubin <0.15 L (0.30-1.20) mg/dL Albumin 3.5 L (3.8-4.9) g/dL Albumin/Globulin Ratio 1.26 L (1.60-3.17) g/dL Microbiology - Last 24 Hours (Table) 10/29/21 19:15 Blood Culture - Preliminary Blood No Growth after 48 hours 10/29/21 14:10 Urine Culture - Preliminary Urine,Voided Gram Neg Bacilli 10/29/21 19:00 Blood Culture Gram Stain - Preliminary Blood Blood Culture - Preliminary Gram Neg Bacilli Assessment and Plan Assessment: 1. Altered mental status changes 2. Fall at home 3. Urinary tract infection, with evidence of right kidney pyelonephritis on computed tomography scan 4. Positive blood culture, gram-negative Bacilli, maintained on cefepime at this time, infectious disease following 5. History of hypertension 6. History of hypothyroidism 7. History of insulin-dependent diabetes mellitus 8. History of osteoarthritis 9. Acute on chronic diastolic congestive heart failure 10. History chronic kidney disease stage III 11. History of atrial fibrillation maintained on eliquis DVT prophylaxis eliquis. GI prophylaxis Protonix Patient started on IV antibiotics Infectious disease service is consulted 2-D echo ordered Cardiology services consulted Repeat labs ordered
[2021-11-01] MEDS: INSULIN ASPART (NovoLOG) 100 UNIT/ML VIAL SQ PRN (14:10)
[2021-11-01 17:01] LABS: Glucose,Whole Blood 243 mg/dL (75-99)
[2021-11-01] MEDS: PRAVASTATIN SODIUM 20 MG TAB PO SCH (18:00)
[2021-11-01] MEDS: CHOLECALCIFEROL 25 MCG (1000 IU) TABLET PO SCH (20:38)
[2021-11-01] MEDS: traZODone HCL 50 MG TAB PO SCH (20:39)
[2021-11-01] MEDS: DULoxetine HCL 60 MG CAPSULE.DR PO SCH (20:39)
[2021-11-01] MEDS: LATANOPROST 0.005% OPHTH DROPS 2.5 ML BTL BOTH EYES SCH (20:40)
[2021-11-01 21:15] LABS: Glucose,Whole Blood 133 mg/dL (75-99)
[2021-11-01] MEDS: INSULIN DETEMIR (LEVEMIR) 100 UNIT/ML SYR SQ SCH (21:48)
[2021-11-02 07:07] LABS: Glucose,Whole Blood 190 mg/dL (75-99)
[2021-11-02] MEDS: hydrALAZINE HCL 10 MG TAB PO SCH ×2 (09:02→17:43)
[2021-11-02] MEDS: CEFEPIME 2 GM in SODIUM CHLORIDE 0.9% 100 ML IVPB SCH (09:02)
[2021-11-02] MEDS: PANTOPRAZOLE 40 MG TABLET PO SCH (09:03)
[2021-11-02] MEDS: BUMETANIDE 1 MG TAB PO SCH ×2 (09:03→14:25)
[2021-11-02] MEDS: carvediloL 6.25 MG TAB PO SCH ×2 (09:03→17:43)
[2021-11-02] MEDS: APIXABAN 5 MG TAB PO SCH ×2 (09:03→17:44)
[2021-11-02] MEDS: HYDROcodone/APAP 5-325MG 1 EACH TAB PO SCH ×2 (09:03→20:59)
[2021-11-02] MEDS: amLODIPine 5 MG TAB PO SCH ×2 (09:03→17:44)
[2021-11-02] MEDS: GABAPENTIN 100 MG CAP PO SCH ×2 (09:03→17:46)
[2021-11-02] MEDS: LEVOTHYROXINE 125 MCG TAB PO SCH (09:03)
[2021-11-02] MEDS: CINNAMON PO SCH ×2 (09:04→14:26)
[2021-11-02] MEDS: INSULIN ASPART (NovoLOG) 100 UNIT/ML VIAL SQ SCH ×2 (09:04→17:44)
[2021-11-02] MEDS: MILK THISTLE PO SCH ×2 (09:05→17:02)
[2021-11-02 10:45] LABS: Basophils # (A) 0.03 X 10*3/uL (0.00-0.10); Basophils % (A) 0.4 %; Eosinophils # (A) 0.28 X 10*3/uL (0.04-0.35); Eosinophils % (A) 3.3 %; HCT 39.8 % (37.2-46.3); HGB 12.7 g/dL (12.0-15.0); Immature Grans, Automated 0.6 %; Lymphocytes # (A) 1.43 X 10*3/uL (0.90-5.00); Lymphocytes % (A) 17.1 %; MCH 30.6 pg (27.0-32.0); MCHC 31.9 g/dL (32.0-37.0); MCV 95.9 fL (80.0-97.0); Mean Platelet Volume 11.1 fL (9.5-12.2); Monocytes # (A) 1.16 X 10*3/uL (0.20-1.00); Monocytes % (A) 13.9 %; NRBC Per 100 WBC 0 /100 WBCS (0.0-0.0); Neutrophils # (A) 5.42 X 10*3/uL (1.80-7.70); Neutrophils % (A) 64.7 %; Platelet Count 277 X 10*3/uL (140-440); RBC 4.15 X 10*6/uL (4.10-5.20); RDW 14.2 % (11.5-14.5); WBC 8.37 X 10*3/uL (4.50-10.00)
--- NOTE | 2021-11-02 11:12 | P.PN ---
Subjective Progress Note Date: 11/02/21 This is a 76-year-old woman with multiple medical conditions including proximal atrial fibrillation, diabetes, dementia, renal disease, rheumatoid arthritis, thyroid disorder, pulmonary hypertension who is brought into the ER when she was found on the bathroom floor by her family. Patient follows with Dr. Crump in [place]. Patient is seen today having breakfast with her at the bedside. Patient remains confused alert and orientated 1-2. She denies chest pain or increased shortness of breath. Patient is seen up walking around the room without signs of distress. No arrhythmias have been noted on her desk monitor. She remains in sinus rhythm. Patient continues on IV antibiotics for right pyelonephritis. We'll continue with all current cardiac medications. At this time we will follow the patient on an as-needed basis Objective - Vital Signs Vital signs: Vital Signs Temp 97.7 F 11/02/21 07:46 Pulse 75 11/02/21 07:46 Resp 18 11/02/21 07:46 BP 148/82 11/02/21 07:46 Pulse Ox 96 11/02/21 07:46 FiO2 Intake & Output 11/01/21 11/02/21 11/02/21 18:59 06:59 18:59 Intake Total 118 Balance 118 Intake: Oral 118 Other: Voiding Method Toilet Toilet Toilet # Voids 1 1 - Exam PHYSICAL EXAM: VITAL SIGNS: Reviewed. GENERAL: Well-developed in no acute distress. HEENT: Head is normocephalic. Pupils are equal, round. Sclerae anicteric. Mucous membranes of the mouth are moist. NECK: Supple. No JVD or thyromegaly RESPIRATORY: Respirations even and unlabored. Lungs diminished to auscultation bilaterally. CARDIO: Regular rate and rhythm. S1 and S2 heard. No murmur or gallops. EXTREMITIES: Normal range of motion. No clubbing or cyanosis. Peripheral pulses intact. Negative for bilateral lower extremity edema NEURO: Orientated to person, mood is appropriate - Labs CBC & Chem 7: 11/02/21 05:26 11/01/21 06:21 Labs: Abnormal Lab Results - Last 24 Hours (Table) 11/01/21 11/01/21 11/01/21 Range/Units 11:55 17:00 21:10 MCHC (32.0-37.0) g/dL Immature Gran # (0.00-0.04) X 10*3/uL Monocytes # (0.20-1.00) X 10*3/uL POC Glucose (mg/dL) 163 H 243 H 133 H (75-99) mg/dL 11/02/21 11/02/21 Range/Units 05:26 07:05 MCHC 31.9 L (32.0-37.0) g/dL Immature Gran # 0.05 H (0.00-0.04) X 10*3/uL Monocytes # 1.16 H (0.20-1.00) X 10*3/uL POC Glucose (mg/dL) 190 H (75-99) mg/dL Microbiology - Last 24 Hours (Table) 10/29/21 14:10 Urine Culture - Final Urine,Voided Escherichia fergusonii 10/29/21 19:15 Blood Culture - Preliminary Blood No Growth after 72 hours 10/29/21 19:00 Blood Culture Gram Stain - Final Blood Blood Culture - Final Escherichia fergusonii Assessment and Plan Assessment: Syncopal episode Proximal atrial fibrillation Urinary tract infection with concerns for possible underlying nephritis Plan: Continue with Eliquis Continue with all current cardiac medications Will continue with telemetry monitoring Continue to follow with infectious disease for pyelonephritis and positive cultures Patient is remains stable from a cardiac standpoint will follow patient on a as- needed basis The above impression and plan of care have been discussed and directed by the signing physician. Nika Langston, nurse practitioner, acting as scribe for signing physician.
[2021-11-02 11:44] LABS: Glucose,Whole Blood 247 mg/dL (75-99)
[2021-11-02 12:41] LABS: African American GFR (CKD) 56.9 (60.0-200.0); Albumin 3.9 g/dL (3.8-4.9); Albumin/Globulin Ratio 1.26 (1.60-3.17); Anion Gap 15.1 mmol/L (10.00-18.00); BUN/Creat Ratio 23.55 Ratio (12.00-20.00); Blood Urea Nitrogen 25.9 mg/dL (9.0-27.0); Calcium 9.8 mg/dL (8.7-10.3); Carbon Dioxide 26.9 mmol/L (20.0-27.5); Globulin 3.1 g/dL (1.6-3.3); Non-African American GFR(CKD) 49.1 (60.0-200.0); Total Bilirubin 0.2 mg/dL (0.30-1.20)
--- NOTE | 2021-11-02 13:21 | P.PN ---
Subjective Progress Note Date: 11/02/21 Mirian Briceno, is a 76-year-old female who presented to [facility] emergency room with a chief complaint of confusion and mental status changes, patient had a fall with head trauma at home He was evaluated in the emergency room vital examination on presentation revealed a temperature of 100 heart rate 93 respiration 20 blood pressure 138/71 pulse ox 95% on room air Laboratory data revealed white blood count 10.3 hemoglobin 12.4 platelet count 258 BUN 28 creatinine 1.01 urine analysis revealed evidence of urinary tract infection Testing in the emergency room revealed the head and cervical spine computed tomography scan without contrast was done in the emergency room and did not reve al any acute abnormality, chest x-ray was done in emergency room and revealed suspected pulmonary edema, pelvic x-ray didn't reveal any evidence of acute fracture. EKG revealed sinus rhythm, with left ventricular hypertrophy and left axis deviation. Patient was admitted to medical floor for further evaluation and treatment, she was started on IV Rocephin for urinary tract infection On 10/30/2021 patient is resting comfortably in bed intermittent episodes of confusion. Blood culture positive for gram-negative rods. Infectious disease services have been consulted. White blood cell increasing to 24.8. Patient currently on IV Rocephin. Will order COVID-19 and influenza At this time daniel ent denies chest pain or shortness of breath. Patient denies nausea vomiting or diarrhea. Patient denies any urinary burning or frequency 10/31/2021 patient is resting comfortably in bed denies any acute complaints. White blood cell slightly improving to 16.0. Infectious disease services are fo llowing patient remains on IV Rocephin. COVID and influenza negative. BNP is elevated at 6475. 2-D echo has been ordered cardiology services have been consulted. At this time patient denies chest pain or shortness breath. Patient denies nausea vomiting or diarrhea. Patient denies any urinary burning or frequency. Current vitals temp 97.6, heart rate 83, respiratory rate 16, blood pressure 148/87 with a pulse ox of 98% on room air. On 11/01/2021 patient was seen and examined on the medical floor she is alert and oriented 3 in no apparent distress, she denies any complaints at this time there is no fever or chills no headache or dizziness no chest pain no shortness of breath no cough no nausea or vomiting no abdominal pain no diarrhea and no urinary symptoms, vital examination reveals a temperature of 98.2 pulse 75 respiration 16 blood pressure 148/79 pulse ox 93% on room air, white blood count today is 11.54 down from 16.0 yesterday hemoglobin 11.2 platelet count 244 BUN 23 creatinine 0.8 On 11/02/2021 patient was seen and examined on the medical floor she is alert and oriented in no distress, there is no fever or chills no headache or dizziness no chest pain no shortness of breath no cough no nausea or vomiting no abdominal pain no diarrhea and no urinary symptoms, patient had positive urine culture and positive blood culture both for Escherishia Fergusonii, currently patient is maintained on IV cefepime and bacteria is sensitive to the cefepime, awaiting further recommendation from infectious disease regarding antibiotic at the time of discharge Objective - Vital Signs Vital signs: Vital Signs Temp 97.7 F 11/02/21 07:46 Pulse 75 11/02/21 07:46 Resp 18 11/02/21 07:46 BP 148/82 11/02/21 07:46 Pulse Ox 96 11/02/21 07:46 FiO2 Intake & Output 11/01/21 11/02/21 11/02/21 18:59 06:59 18:59 Intake Total 118 Balance 118 Intake: Oral 118 Other: Voiding Method Toilet Toilet Toilet # Voids 1 1 - Exam In general patient is alert and oriented x 3 in no distress HEENT head normocephalic and atraumatic Neck is supple no JVD no goiter no lymphadenopathy no carotid bruit Chest examination is clear to auscultation no crackles no wheezing Cardiac exam reveals regular heart sounds S1 and S2 no gallops no murmurs Abdomen is soft nontender no organomegaly with normal bowel sounds Extremity exam reveals no edema no cyanosis or clubbing Neurological examination reveals no gross focal deficits - Labs CBC & Chem 7: 11/02/21 05:26 11/02/21 05:26 Labs: Abnormal Lab Results - Last 24 Hours (Table) 11/01/21 11/01/21 11/02/21 Range/Units 17:00 21:10 05:26 MCHC 31.9 L (32.0-37.0) g/dL Immature Gran # 0.05 H (0.00-0.04) X 10*3/uL Monocytes # 1.16 H (0.20-1.00) X 10*3/uL POC Glucose (mg/dL) 243 H 133 H (75-99) mg/dL 11/02/21 11/02/21 Range/Units 07:05 11:42 MCHC (32.0-37.0) g/dL Immature Gran # (0.00-0.04) X 10*3/uL Monocytes # (0.20-1.00) X 10*3/uL POC Glucose (mg/dL) 190 H 247 H (75-99) mg/dL Microbiology - Last 24 Hours (Table) 10/29/21 14:10 Urine Culture - Final Urine,Voided Escherichia fergusonii 10/29/21 19:15 Blood Culture - Preliminary Blood No Growth after 72 hours 10/29/21 19:00 Blood Culture Gram Stain - Final Blood Blood Culture - Final Escherichia fergusonii Assessment and Plan Assessment: 1. Altered mental status changes 2. Fall at home 3. Urinary tract infection, with evidence of right kidney pyelonephritis on computed tomography scan 4. Positive blood culture, gram-negative Bacilli, maintained on cefepime at this time, infectious disease following 5. History of hypertension 6. History of hypothyroidism 7. History of insulin-dependent diabetes mellitus 8. History of osteoarthritis 9. Acute on chronic diastolic congestive heart failure 10. History chronic kidney disease stage III 11. History of atrial fibrillation maintained on eliquis DVT prophylaxis eliquis. GI prophylaxis Protonix Patient started on IV antibiotics Infectious disease service is consulted 2-D echo ordered Cardiology services consulted Repeat labs ordered
[2021-11-02] MEDS: ASPIRIN 81 MG PO SCH (14:25)
[2021-11-02 16:52] LABS: Glucose,Whole Blood 351 mg/dL (75-99)
[2021-11-02] MEDS: PRAVASTATIN SODIUM 20 MG TAB PO SCH (17:43)
[2021-11-02 20:28] LABS: Glucose,Whole Blood 313 mg/dL (75-99)
[2021-11-02] MEDS: CHOLECALCIFEROL 25 MCG (1000 IU) TABLET PO SCH (20:58)
[2021-11-02] MEDS: INSULIN DETEMIR (LEVEMIR) 100 UNIT/ML SYR SQ SCH (20:58)
[2021-11-02] MEDS: traZODone HCL 50 MG TAB PO SCH (20:58)
[2021-11-02] MEDS: LATANOPROST 0.005% OPHTH DROPS 2.5 ML BTL BOTH EYES SCH (21:00)
[2021-11-02] MEDS: DULoxetine HCL 60 MG CAPSULE.DR PO SCH (21:00)
[2021-11-03 07:46] LABS: Glucose,Whole Blood 139 mg/dL (75-99)
[2021-11-03] MEDS: APIXABAN 5 MG TAB PO SCH (07:57)
[2021-11-03] MEDS: hydrALAZINE HCL 10 MG TAB PO SCH (07:57)
[2021-11-03] MEDS: amLODIPine 5 MG TAB PO SCH (07:57)
[2021-11-03] MEDS: PANTOPRAZOLE 40 MG TABLET PO SCH (07:57)
[2021-11-03] MEDS: carvediloL 6.25 MG TAB PO SCH (07:57)
[2021-11-03] MEDS: LEVOTHYROXINE 125 MCG TAB PO SCH (07:58)
[2021-11-03] MEDS: BUMETANIDE 1 MG TAB PO SCH (07:58)
[2021-11-03] MEDS: INSULIN ASPART (NovoLOG) 100 UNIT/ML VIAL SQ SCH (07:58)
[2021-11-03] MEDS: CINNAMON PO SCH (08:01)
[2021-11-03 09:04] LABS: ALT 18 U/L (4-34); AST 30 U/L (14-36); African American GFR (CKD) 70 (>60 ml/min/1.73 sqM); Albumin 3.7 g/dL (3.5-5.0); Albumin/Globulin Ratio 1.1; Alkaline Phosphatase 104 U/L (38-126); Anion Gap 12 mmol/L; Blood Urea Nitrogen 30 mg/dL (7-17); Calcium 9.4 mg/dL (8.4-10.2); Carbon Dioxide 25 mmol/L (22-30); Chloride 102 mmol/L (98-107); Globulin 3.3 g/dL; Glucose 131 mg/dL (74-99); Non-African American GFR(CKD) 61 (>60 ml/min/1.73 sqM); Potassium 3.7 mmol/L (3.5-5.1); Sodium 139 mmol/L (137-145); Total Bilirubin 0.3 mg/dL (0.2-1.3)
[2021-11-03 09:13] VITALS: BP 139/68; PULSE 74; RESP 16; TEMP 98
[2021-11-03] MEDS: CYANOCOBALAMIN 500 MCG TAB PO SCH (10:35)
[2021-11-03] MEDS: HYDROcodone/APAP 5-325MG 1 EACH TAB PO SCH (10:35)
[2021-11-03 10:44] LABS: Basophils # (A) 0.06 X 10*3/uL (0.00-0.10); Basophils % (A) 0.7 %; Eosinophils # (A) 0.36 X 10*3/uL (0.04-0.35); Eosinophils % (A) 4.2 %; HCT 37.5 % (37.2-46.3); Immature Grans, Automated 0.9 %; Lymphocytes # (A) 1.37 X 10*3/uL (0.90-5.00); MCH 30.5 pg (27.0-32.0); MCV 95.4 fL (80.0-97.0); Mean Platelet Volume 10.6 fL (9.5-12.2); Monocytes # (A) 1.23 X 10*3/uL (0.20-1.00); Monocytes % (A) 14.3 %; NRBC Per 100 WBC 0 /100 WBCS (0.0-0.0); Neutrophils # (A) 5.48 X 10*3/uL (1.80-7.70); Neutrophils % (A) 63.9 %; Platelet Count 297 X 10*3/uL (140-440); RBC 3.93 X 10*6/uL (4.10-5.20); WBC 8.58 X 10*3/uL (4.50-10.00)
--- NOTE | 2021-11-03 10:59 | P.DS ---
Providers Date of admission: 10/30/21 13:26 Expected date of discharge: 11/03/21 Attending physician: Taina Vergara Consults: 10/29/21 20:09 Consult Physician Routine Consulting Provider: Ajay Meda Consult Reason/Comments: Urinary tract infection Do you want consulting provider notified?: Yes Primary care physician: Taina Vergara [facility] Course: Discharge diagnosis 1. Altered mental status changes 2. Fall at home 3. Urinary tract infection, with evidence of right kidney pyelonephritis on computed tomography scan 4. Positive blood culture, gram-negative Bacilli, maintained on cefepime at this time, infectious disease following 5. History of hypertension 6. History of hypothyroidism 7. History of insulin-dependent diabetes mellitus 8. History of osteoarthritis 9. Acute on chronic diastolic congestive heart failure 10. History chronic kidney disease stage III 11. History of atrial fibrillation maintained on [facility] course Mirian Briceno, is a 76-year-old female who presented to [facility] emergency room with a chief complaint of confusion and mental status changes, patient had a fall with head trauma at home He was evaluated in the emergency room vital examination on presentation revealed a temperature of 100 heart rate 93 respiration 20 blood pressure 138/71 pulse ox 95% on room air Laboratory data revealed white blood count 10.3 hemoglobin 12.4 platelet count 258 BUN 28 creatinine 1.01 urine analysis revealed evidence of urinary tract infection Testing in the emergency room revealed the head and cervical spine computed tomography scan without contrast was done in the emergency room and did not reveal any acute abnormality, chest x-ray was done in emergency room and revealed suspected pulmonary edema, pelvic x-ray didn't reveal any evidence of acute fracture. EKG revealed sinus rhythm, with left ventricular hypertrophy and left axis deviation. Patient was admitted to medical floor for further evaluation and treatment, she was started on IV Rocephin for urinary tract infection On 10/30/2021 patient is resting comfortably in bed intermittent episodes of co nfusion. Blood culture positive for gram-negative rods. Infectious disease services have been consulted. White blood cell increasing to 24.8. Patient currently on IV Rocephin. Will order COVID-19 and influenza At this time patient denies chest pain or shortness of breath. Patient denies nausea vomiting or diarrhea. Patient denies any urinary burning or frequency 10/31/2021 patient is resting comfortably in bed denies any acute complaints. White blood cell slightly improving to 16.0. Infectious disease services are following patient remains on IV Rocephin. COVID and influenza negative. BNP is elevated at 6475. 2-D echo has been ordered cardiology services have been consulted. At this time patient denies chest pain or shortness breath. Patient denies nausea vomiting or diarrhea. Patient denies any urinary burning or frequency. Current vitals temp 97.6, heart rate 83, respiratory rate 16, blood pressure 148/87 with a pulse ox of 98% on room air. On 11/01/2021 patient was seen and examined on the medical floor she is alert and oriented 3 in no apparent distress, she denies any complaints at this time there is no fever or chills no headache or dizziness no chest pain no shortness of breath no cough no nausea or vomiting no abdominal pain no diarrhea and no urinary symptoms, vital examination reveals a temperature of 98.2 pulse 75 respiration 16 blood pressure 148/79 pulse ox 93% on room air, white blood count today is 11.54 down from 16.0 yesterday hemoglobin 11.2 platelet count 244 BUN 23 creatinine 0.8 On 11/02/2021 patient was seen and examined on the medical floor she is alert and oriented in no distress, there is no fever or chills no headache or dizziness no chest pain no shortness of breath no cough no nausea or vomiting no abdominal pain no diarrhea and no urinary symptoms, patient had positive urine culture and positive blood culture both for Escherishia Fergusonii, currently patient is maintained on IV cefepime and bacteria is sensitive to the cefepime, awaiting further recommendation from infectious disease regarding antibiotic at the time of discharge On 11/03/2021 patient is alert and oriented 3. at bedside patient has been her eager to be DC'd home. Did discuss with infectious disease patient may be discharged on Cipro for 10 days. no further workup inpatient per cardiology services continue current medication. At this time patient denies chest pain or shortness of breath. Patient denies nausea vomiting or diarrhea. Patient denies any urinary burning or frequency Patient Condition at Discharge: Stable Plan - Discharge Summary Discharge Rx Participant: No New Discharge Prescriptions: New DULoxetine HCL [Cymbalta] 60 mg PO HS cap Ciprofloxacin HCl [Cipro] 250 mg PO Q12HR 10 Days #20 tab Continue Bumetanide [BUMEX] 1 mg PO BID@0900,1200 Pantoprazole Sodium 40 mg PO W/BRKFST traZODone HCL [Desyrel] 50 mg PO HS Gabapentin [Neurontin] 100 mg PO BID@1200,1700 Apixaban [Eliquis] 5 mg PO BID-W/MEALS Pravastatin Sodium [Pravachol] 20 mg PO W/SUPPER carvediloL [Coreg] 6.25 mg PO BID-W/MEALS HYDROcodone/APAP 5-325MG [[place] 5-325] 1 tab PO BID@0900,2100 amLODIPine [Norvasc] 5 mg PO BID-W/MEALS Milk Thistle 250mg 250 mg PO BID@1200,1700 Aspirin 81 mg PO W/LUNCH Latanoprost/Pf [Latanoprost 0.005% Eye Drop] 1 drop BOTH EYES HS Insulin Aspart [NovoLOG Flexpen] 12 units SQ BID-W/MEALS Acetaminophen [Tylenol] 500 mg PO TID PRN PRN Reason: Pain Cinnamon 250mg 250 mg PO BID@0900,1200 Fluticasone Nasal Kirwin [Flonase Nasal Kirwin] 2 spray EA NOSTRIL DAILY PRN PRN Reason: Allergy Symptoms Insulin Aspart [NovoLOG Flexpen] 5 units SQ W/LUNCH PRN PRN Reason: IF EATING LUNCH Levothyroxine Sodium [Synthroid] 125 mcg PO DAILY@0800 hydrALAZINE HCL [Apresoline] 10 mg PO BID-W/MEALS Cholecalciferol (Vitamin D3) [Vitamin D3 (125 MCG = 5,000 IU)] 125 mcg PO HS Cyanocobalamin (Vitamin B-12) [Vitamin B-12] 500 mcg PO Q48H Insulin Detemir [Levemir Flextouch Pen] 14 units SQ HS calcitrioL [Rocaltrol] 0.25 mcg PO BHATTI Diclofenac Sodium Gel [Voltaren Gel] 2 gm TOPICAL DAILY PRN PRN Reason: Pain diphenhydrAMINE HCL [Benadryl] 25 mg PO DAILY PRN PRN Reason: Allergy Symptoms Mupirocin 2% Oint [Bactroban 2% Oint] 1 applic TOPICAL TID Discontinued DULoxetine HCL [Cymbalta] 60 mg PO HS clindamycin HCL [Cleocin] 600 mg PO DIRECTED PRN PRN Reason: 1 HOUR BEFORE DENTAL APPT Discharge Medication List Bumetanide [BUMEX] 1 mg PO BID@0900,1200 10/02/14 [History] Pantoprazole Sodium 40 mg PO W/BRKFST 10/02/14 [History] traZODone HCL [Desyrel] 50 mg PO HS 06/06/15 [History] Gabapentin [Neurontin] 100 mg PO BID@1200,1700 12/16/16 [History] Apixaban [Eliquis] 5 mg PO BID-W/MEALS 09/27/18 [History] Pravastatin Sodium [Pravachol] 20 mg PO W/SUPPER 09/27/18 [History] carvediloL [Coreg] 6.25 mg PO BID-W/MEALS 05/01/19 [History] HYDROcodone/APAP 5-325MG [[place]wood 5-325] 1 tab PO BID@0900,2100 12/31/20 [History] Levothyroxine Sodium [Synthroid] 125 mcg PO DAILY@0800 12/31/20 [History] Milk Thistle 250mg 250 mg PO BID@1200,1700 12/31/20 [History] amLODIPine [Norvasc] 5 mg PO BID-W/MEALS 12/31/20 [History] hydrALAZINE HCL [Apresoline] 10 mg PO BID-W/MEALS 12/31/20 [History] Aspirin 81 mg PO W/LUNCH 03/15/21 [History] Cholecalciferol (Vitamin D3) [Vitamin D3 (125 MCG = 5,000 IU)] 125 mcg PO HS 03/15/21 [History] Cyanocobalamin (Vitamin B-12) [Vitamin B-12] 500 mcg PO Q48H 03/15/21 [History] Acetaminophen [Tylenol] 500 mg PO TID PRN 06/24/21 [History] Cinnamon 250mg 250 mg PO BID@0900,1200 06/24/21 [History] Diclofenac Sodium Gel [Voltaren Gel] 2 gm TOPICAL DAILY PRN 06/24/21 [History] Insulin Aspart [NovoLOG Flexpen] 12 units SQ BID-W/MEALS 06/24/21 [History] Insulin Detemir [Levemir Flextouch Pen] 14 units SQ HS 06/24/21 [History] Latanoprost/Pf [Latanoprost 0.005% Eye Drop] 1 drop BOTH EYES HS 06/24/21 [History] calcitrioL [Rocaltrol] 0.25 mcg PO BHATTI 06/24/21 [History] Fluticasone Nasal Kirwin [Flonase Nasal Kirwin] 2 spray EA NOSTRIL DAILY PRN 10/29/21 [History] Insulin Aspart [NovoLOG Flexpen] 5 units SQ W/LUNCH PRN 10/29/21 [History] Mupirocin 2% Oint [Bactroban 2% Oint] 1 applic TOPICAL TID 10/29/21 [History] diphenhydrAMINE HCL [Benadryl] 25 mg PO DAILY PRN 10/29/21 [History] Ciprofloxacin HCl [Cipro] 250 mg PO Q12HR 10 Days #20 tab 11/03/21 [Rx] DULoxetine HCL [Cymbalta] 60 mg PO HS cap 11/03/21 [Rx] Follow up Appointment(s)/Referral(s): [facility], [NON-STAFF] - 1 Week Taina Vergara MD [Primary Care Provider] - 1-2 days Activity/Diet/Wound Care/Special Instructions: Activity as tolerated Diet heart healthy Cymbalta should be held while on Cipro for 10 days Discharge Disposition: HOME WITH HOME HEALTH SERVICES
--- NOTE | 2021-11-06 13:10 | CDI ---
Documentation Clarification Form Date: 11/06/2021 12:55:33 PM From: Aleja Langston Admit Date: 10/30/2021 01:26:00 PM Patient Name: Mirian Briceno Visit Number: [id number] Discharge Date: 11/03/2021 12:33:00 PM ATTENTION: The Clinical Documentation Specialists (CDI) and [facility] Coding Staff appreciate your assistance in clarifying documentation. Please respond to the clarification below the line at the bottom and electronically sign. The CDI & [facility] Coding staff will review the response and follow-up if needed. Please note: Queries are made part of the Legal Health Record. If you have any questions, please contact the author of this message via ITS. Dr. Taina Vergara Acute Encephalopathy is documented on the ED note 10/29/21. Additional clarification regarding the type of encephalopathy is requested. Confusion documented on H&P 10/29, progress notes 10/30, 10/31, 11/01, and 11/02, discharge summary 11/03. History/Risk Factors: UTI, bacteremia Clinical Indicators: Labs: 10/30 : WBC 24.88 Treatment: IV antibiotics Consults: cardiology and infectious disease Please clarify if encephalopathy was ruled out or in, and specify the type of encephalopathy, if known: [x ] Metabolic Encephalopathy [ ] Septic Encephalopathy [ ] Toxic Encephalopathy [ ] Traumatic Encephalopathy [ ] Encephalopathy ruled out [ ] Other, please specify [ ] Unable to determine MTDD
--- NOTE | 2021-11-06 13:27 | CDI ---
Documentation Clarification Form Date: 11/06/2021 01:12:21 PM From: Aleja Langston Admit Date: 10/30/2021 01:26:00 PM Patient Name: Mirain Briceno Visit Number: [id number] Discharge Date: 11/03/2021 12:33:00 PM ATTENTION: The Clinical Documentation Specialists (CDI) and [facility] Coding Staff appreciate your assistance in clarifying documentation. Please respond to the clarification below the line at the bottom and electronically sign. The CDI & [facility] Coding staff will review the response and follow-up if needed. Please note: Queries are made part of the Legal Health Record. If you have any questions, please contact the author of this message via ITS. Dr. Taina Vergara Documentation of positive blood culture and gram negative Bacilli in the Discharge Summary. Bacteremia likely secondary to right sided pyelonphritis was documented in progress note from 10/31. The patient presented with the following clinical indicators. Additional clarification regarding the etiology/cause of the clinical indicators is requested. History/Risk Factors: Altered mental status, positive blood cultures, elevated WBCs. Clinical Indicators: WBC: 10/30 24.88 Blood cultures: 10/29 Escherichia fergusonii Vitals signs: 10/29 temperature 100.4, and pulse 108 ID Consult: [place] Antibiotics: cefepime In your professional opinion, please clarify if these findings signify one of the following conditions: [ x ] Septicemia due to UTI POA [ ] Septicemia ruled out [ ] Bacteremia [ ] Other, please specify [ ] Unable to determine MTDD
--- NOTE | 2021-11-10 23:59 | P.PN ---
Subjective Progress Note Date: 11/01/21 Principal diagnosis: Right-sided pyelonephritis with bacteremia Patient is a 76-year-old patient female presented to the hospital with weakness follow in this patient noticed to have elevated white count and positive UA, concerning for symptomatic UTI CT abdominal pelvis suspicious for right-sided pyelonephritis, blood cultures reported positive for gram-negative bacilli On today's evaluation that is 11/01/2021, the patient remains to be afebrile, the patient is breathing comfortably on room air patient denies chest pain shortness of breath or cough no abdominal pain no diarrhea Objective - Vital Signs Vital signs: Vital Signs Temp 98 F 11/01/21 14:32 Pulse 80 11/01/21 14:32 Resp 16 11/01/21 14:32 BP 113/82 11/01/21 14:32 Pulse Ox 96 11/01/21 14:32 FiO2 Intake & Output 10/31/21 11/01/21 11/01/21 18:59 06:59 18:59 Intake Total 386 118 Balance 386 118 Intake: Intake, IV Titration 150 Amount Cefepime 2 gm In Sodium 100 Chloride 0.9% 100 ml @ 25 mls/hr IVPB Q12HR [facility] Rx #:[id number] cefTRIAXone 1 gm In 50 Sodium Chloride 0.9% 50 ml @ 100 mls/hr IVPB Q24HR [facility] Rx#:[id number] Oral 236 118 Other: Voiding Method External Catheter Toilet # Voids 1 1 - Exam GENERAL DESCRIPTION: An elderly female lying in bed in no distress RESPIRATORY SYSTEM: Unlabored breathing , decreased breath sounds at bases HEART: S1 S2 regular rate and rhythm , ABDOMEN: Soft , no tenderness EXTREMITIES: No edema feet - Labs CBC & Chem 7: 11/03/21 07:51 11/03/21 07:51 Labs: Abnormal Lab Results - Last 24 Hours (Table) 10/31/21 10/31/21 11/01/21 Range/Units 17:06 19:29 06:21 WBC 11.54 H (4.50-10.00) X 10*3/uL RBC 3.76 L (4.10-5.20) X 10*6/uL Hgb 11.2 L (12.0-15.0) g/dL Hct 36.5 L (37.2-46.3) % MCV 97.1 H (80.0-97.0) fL MCHC 30.7 L (32.0-37.0) g/dL Immature Gran # 0.05 H (0.00-0.04) X 10*3/uL Neutrophils # 8.50 H (1.80-7.70) X 10*3/uL Monocytes # 1.44 H (0.20-1.00) X 10*3/uL Eosinophils # 0.46 H (0.04-0.35) X 10*3/uL BUN/Creatinine Ratio (12.00-20.00) Ratio Glucose (70-110) mg/dL POC Glucose (mg/dL) 190 H 172 H (75-99) mg/dL Total Bilirubin (0.30-1.20) mg/dL Albumin (3.8-4.9) g/dL Albumin/Globulin Ratio (1.60-3.17) g/dL 11/01/21 11/01/21 11/01/21 Range/Units 06:21 07:23 11:55 WBC (4.50-10.00) X 10*3/uL RBC (4.10-5.20) X 10*6/uL Hgb (12.0-15.0) g/dL Hct (37.2-46.3) % MCV (80.0-97.0) fL MCHC (32.0-37.0) g/dL Immature Gran # (0.00-0.04) X 10*3/uL Neutrophils # (1.80-7.70) X 10*3/uL Monocytes # (0.20-1.00) X 10*3/uL Eosinophils # (0.04-0.35) X 10*3/uL BUN/Creatinine Ratio 27.65 H (12.00-20.00) Ratio Glucose 68 L (70-110) mg/dL POC Glucose (mg/dL) 71 L 163 H (75-99) mg/dL Total Bilirubin <0.15 L (0.30-1.20) mg/dL Albumin 3.5 L (3.8-4.9) g/dL Albumin/Globulin Ratio 1.26 L (1.60-3.17) g/dL Microbiology - Last 24 Hours (Table) 10/29/21 19:15 Blood Culture - Preliminary Blood No Growth after 48 hours 10/29/21 14:10 Urine Culture - Preliminary Urine,Voided Gram Neg Bacilli 10/29/21 19:00 Blood Culture Gram Stain - Preliminary Blood Blood Culture - Preliminary Gram Neg Bacilli Assessment and Plan (1) Bacteremia Status: Acute Code(s): R78.81 - BACTEREMIA SNOMED Code(s): 2811140 (2) UTI (urinary tract infection) Status: Acute Code(s): N39.0 - URINARY TRACT INFECTION, SITE NOT SPECIFIED SNOMED Code(s): 30787453 Plan: 1patient is in the hospital after patient did have a fall complaining of weakness did have urinary symptoms positive UA with concern for possible underlying pyelonephritis which has been confirmed on a CT in no other acute abnormality 2patient with penicillin ALLERGY that would limit the number of antibiotic safety use. 3gram-negative bacteremia likely secondary to right-sided pyelonephritis. 4patient to continue with cefepime while waiting for the cultures to finalize and monitored weekly course closely
--- NOTE | 2021-11-11 | P.PN ---
Subjective Progress Note Date: 11/02/21 Principal diagnosis: Right-sided pyelonephritis with bacteremia Patient is a 76-year-old patient female presented to the hospital with weakness follow in this patient noticed to have elevated white count and positive UA, concerning for symptomatic UTI CT abdominal pelvis suspicious for right-sided pyelonephritis, blood cultures reported positive for gram-negative bacilli On today's evaluation that is 11/02/2021, the patient continues to be afebrile, the patient is breathing comfortably on room air, the patient denies chest pain shortness of breath or cough , the patient denies abdominal pain no diarrhea Objective - Vital Signs Vital signs: Vital Signs Temp 97.7 F 11/02/21 07:46 Pulse 75 11/02/21 07:46 Resp 18 11/02/21 07:46 BP 148/82 11/02/21 07:46 Pulse Ox 96 11/02/21 07:46 FiO2 Intake & Output 11/01/21 11/02/21 11/02/21 18:59 06:59 18:59 Intake Total 118 Balance 118 Intake: Oral 118 Other: Voiding Method Toilet Toilet # Voids 1 1 - Exam GENERAL DESCRIPTION: An elderly female lying in bed in no distress RESPIRATORY SYSTEM: Unlabored breathing , decreased breath sounds at bases HEART: S1 S2 regular rate and rhythm , ABDOMEN: Soft , no tenderness EXTREMITIES: No edema feet - Labs CBC & Chem 7: 11/03/21 07:51 11/03/21 07:51 Labs: Abnormal Lab Results - Last 24 Hours (Table) 11/01/21 11/01/21 11/01/21 Range/Units 11:55 17:00 21:10 POC Glucose (mg/dL) 163 H 243 H 133 H (75-99) mg/dL 11/02/21 Range/Units 07:05 POC Glucose (mg/dL) 190 H (75-99) mg/dL Microbiology - Last 24 Hours (Table) 10/29/21 14:10 Urine Culture - Final Urine,Voided Escherichia fergusonii 10/29/21 19:15 Blood Culture - Preliminary Blood No Growth after 72 hours 10/29/21 19:00 Blood Culture Gram Stain - Final Blood Blood Culture - Final Escherichia fergusonii Assessment and Plan (1) Bacteremia Status: Acute Code(s): R78.81 - BACTEREMIA SNOMED Code(s): 6342133 (2) UTI (urinary tract infection) Status: Acute Code(s): N39.0 - URINARY TRACT INFECTION, SITE NOT SPECIFIED SNOMED Code(s): 06464308 Plan: 1patient is in the hospital after patient did have a fall complaining of weakness did have urinary symptoms positive UA with concern for possible underlying pyelonephritis which has been confirmed on a CT in no other acute abnormality 2patient with penicillin ALLERGY that would limit the number of antibiotic sa fety use. 3E. Fergusonii bacteremia likely secondary to right-sided pyelonephritis. 4patient antibiotic was switched to Rocephin 2 g daily with a plan to finish therapy with oral Cipro
--- NOTE | 2021-11-11 00:01 | P.PN ---
Subjective Progress Note Date: 11/03/21 Principal diagnosis: Right-sided pyelonephritis with bacteremia Patient is a 76-year-old patient female presented to the hospital with weakness follow in this patient noticed to have elevated white count and positive UA, concerning for symptomatic UTI CT abdominal pelvis suspicious for right-sided pyelonephritis, blood cultures reported positive for gram-negative bacilli On today's evaluation that is 11/03/2021, the patient denies any fever or chills, the patient is breathing comfortably on room air, the patient denies chest pain shortness of breath or cough , the patient denies abdominal pain and no diarrhea, urinary symptom has improved Objective - Vital Signs Vital signs: Vital Signs Temp 98.0 F 11/03/21 08:00 Pulse 74 11/03/21 08:00 Resp 16 11/03/21 08:00 BP 139/68 11/03/21 08:00 Pulse Ox 93 L 11/03/21 08:00 FiO2 Intake & Output 11/02/21 11/03/21 11/03/21 18:59 06:59 18:59 Intake Total 118 Balance 118 Intake: Oral 118 Other: Voiding Method Toilet Toilet # Voids 3 1 - Exam GENERAL DESCRIPTION: An elderly female lying in bed in no distress RESPIRATORY SYSTEM: Unlabored breathing , decreased breath sounds at bases HEART: S1 S2 regular rate and rhythm , ABDOMEN: Soft , no tenderness EXTREMITIES: No edema feet - Labs CBC & Chem 7: 11/03/21 07:51 11/03/21 07:51 Labs: Abnormal Lab Results - Last 24 Hours (Table) 11/02/21 11/02/21 11/02/21 Range/Units 05:26 11:42 16:49 RBC (4.10-5.20) X 10*6/uL Immature Gran # (0.00-0.04) X 10*3/uL Monocytes # (0.20-1.00) X 10*3/uL Eosinophils # (0.04-0.35) X 10*3/uL Chloride 95 L (96-109) mmol/L BUN (7-17) mg/dL Est GFR (CKD-EPI)AfAm 56.9 L (60.0-200.0) Est GFR (CKD-EPI)NonAf 49.1 L (60.0-200.0) BUN/Creatinine Ratio 23.55 H (12.00-20.00) Ratio Glucose 181 H (70-110) mg/dL POC Glucose (mg/dL) 247 H 351 H (75-99) mg/dL Total Bilirubin 0.20 L (0.30-1.20) mg/dL Albumin/Globulin Ratio 1.26 L (1.60-3.17) g/dL 11/02/21 11/03/21 11/03/21 Range/Units 20:27 07:45 07:51 RBC 3.93 L (4.10-5.20) X 10*6/uL Immature Gran # 0.08 H (0.00-0.04) X 10*3/uL Monocytes # 1.23 H (0.20-1.00) X 10*3/uL Eosinophils # 0.36 H (0.04-0.35) X 10*3/uL Chloride (96-109) mmol/L BUN (7-17) mg/dL Est GFR (CKD-EPI)AfAm (60.0-200.0) Est GFR (CKD-EPI)NonAf (60.0-200.0) BUN/Creatinine Ratio (12.00-20.00) Ratio Glucose (70-110) mg/dL POC Glucose (mg/dL) 313 H 139 H (75-99) mg/dL Total Bilirubin (0.30-1.20) mg/dL Albumin/Globulin Ratio (1.60-3.17) g/dL 11/03/21 Range/Units 07:51 RBC (4.10-5.20) X 10*6/uL Immature Gran # (0.00-0.04) X 10*3/uL Monocytes # (0.20-1.00) X 10*3/uL Eosinophils # (0.04-0.35) X 10*3/uL Chloride (96-109) mmol/L BUN 30 H (7-17) mg/dL Est GFR (CKD-EPI)AfAm (60.0-200.0) Est GFR (CKD-EPI)NonAf (60.0-200.0) BUN/Creatinine Ratio (12.00-20.00) Ratio Glucose 131 H (70-110) mg/dL POC Glucose (mg/dL) (75-99) mg/dL Total Bilirubin (0.30-1.20) mg/dL Albumin/Globulin Ratio (1.60-3.17) g/dL Microbiology - Last 24 Hours (Table) 10/29/21 19:15 Blood Culture - Preliminary Blood No Growth after 96 hours 10/29/21 14:10 Urine Culture - Final Urine,Voided Escherichia franklinonii Assessment and Plan (1) Bacteremia Status: Acute Code(s): R78.81 - BACTEREMIA SNOMED Code(s): 5626633 (2) UTI (urinary tract infection) Status: Acute Code(s): N39.0 - URINARY TRACT INFECTION, SITE NOT SPECIFIED SNOMED Code(s): 33810512 Plan: 1patient is in the hospital after patient did have a fall complaining of weakness did have urinary symptoms positive UA with concern for possible underlying pyelonephritis which has been confirmed on a CT in no other acute abnormality 2patient with penicillin ALLERGY that would limit the number of antibiotic safety use. 3E. Fergusonii bacteremia likely secondary to right-sided pyelonephritis. 4patient has shown overall clinical improvement and plan to finish therapy with oral Cipro 500 mg twice a day for 10 days Time with Patient: Less than 30
== END 2021-11-03 12:33 | disposition home health service (06) | DRG 871 ==
LOC: EC 09:20 → 6NMEDSUR 15:49 → OBSVTOIN 10-30 13:26
PROVIDERS: ADMIT Internal Medicine; ATTEND Internal Medicine
PROC: 05HA33Z Insertion of Infusion Device into Left Brachial Vein, Percutaneous Approach (ICD-10-PCS; principal; 2021-10-30 14:05)
DX: A41.9 Sepsis, unspecified organism (principal); G93.41 Metabolic encephalopathy; I50.33 Acute on chronic diastolic (congestive) heart failure; N39.0 Urinary tract infection, site not specified; I13.0 Hypertensive heart and chronic kidney disease with heart failure and stage 1 through stage 4 chronic kidney disease, or unspecified chronic kidney disease; N10 Acute pyelonephritis; N12 Tubulo-interstitial nephritis, not specified as acute or chronic; W18.30XA Fall on same level, unspecified, initial encounter; B96.20 Unspecified Escherichia coli [E. coli] as the cause of diseases classified elsewhere; Y92.012 Bathroom of single-family (private) house as the place of occurrence of the external cause; E11.22 Type 2 diabetes mellitus with diabetic chronic kidney disease; N18.30 Chronic kidney disease, stage 3 unspecified; Z79.4 Long term (current) use of insulin; E03.9 Hypothyroidism, unspecified; E78.5 Hyperlipidemia, unspecified; F03.90 Unspecified dementia, unspecified severity, without behavioral disturbance, psychotic disturbance, mood disturbance, and anxiety; F32.A Depression, unspecified; I08.1 Rheumatic disorders of both mitral and tricuspid valves; I27.20 Pulmonary hypertension, unspecified; I48.0 Paroxysmal atrial fibrillation; M06.9 Rheumatoid arthritis, unspecified; M79.7 Fibromyalgia; S09.90XA Unspecified injury of head, initial encounter; Z20.822 Contact with and (suspected) exposure to COVID-19; K21.9 Gastro-esophageal reflux disease without esophagitis; M19.90 Unspecified osteoarthritis, unspecified site; H40.9 Unspecified glaucoma; Z96.653 Presence of artificial knee joint, bilateral; I44.7 Left bundle-branch block, unspecified; Z79.01 Long term (current) use of anticoagulants; Z79.890 Hormone replacement therapy; Z79.899 Other long term (current) drug therapy; Z79.891 Long term (current) use of opiate analgesic; Z79.82 Long term (current) use of aspirin; Z86.79 Personal history of other diseases of the circulatory system; Z87.01 Personal history of pneumonia (recurrent); Z86.2 Personal history of diseases of the blood and blood-forming organs and certain disorders involving the immune mechanism; Z86.19 Personal history of other infectious and parasitic diseases; Z91.81 History of falling; Z87.2 Personal history of diseases of the skin and subcutaneous tissue; Z86.69 Personal history of other diseases of the nervous system and sense organs; Z87.42 Personal history of other diseases of the female genital tract; Z88.6 Allergy status to analgesic agent; Z91.030 Bee allergy status; Z88.5 Allergy status to narcotic agent; Z88.0 Allergy status to penicillin; Z88.8 Allergy status to other drugs, medicaments and biological substances; Z91.018 Allergy to other foods; Z91.048 Other nonmedicinal substance allergy status; Z90.89 Acquired absence of other organs; Z90.49 Acquired absence of other specified parts of digestive tract; Z90.710 Acquired absence of both cervix and uterus; Z98.890 Other specified postprocedural states; Z98.84 Bariatric surgery status; Z82.0 Family history of epilepsy and other diseases of the nervous system; Z82.49 Family history of ischemic heart disease and other diseases of the circulatory system; Z82.41 Family history of sudden cardiac death
CPT/HCPCS: 36410; 36415; 70450; 71046; 72125; 72170; 74176; 76937; 80053; 81001; 83880; 84443; 84484; 85025; 85610; 85730; 87040; 87077; 87086; 87186; 87502; 87635; 93005; 93306; 96374; 96375; 99285

== ENCOUNTER → 2022-01-12 | Outpatient (CLI) | payer MEDICARE, BC ==
[2022-01-12 15:21] LABS: ALT 30 U/L (8-44); AST 37 U/L (13-35); African American GFR (CKD) 60.2 (60.0-200.0); Albumin 4.4 g/dL (3.8-4.9); Alkaline Phosphatase 91 U/L (41-126); BUN/Creat Ratio 33.05 Ratio (12.00-20.00); Blood Urea Nitrogen 34.7 mg/dL (9.0-27.0); Calcium 10.1 mg/dL (8.7-10.3); Carbon Dioxide 27.9 mmol/L (20.0-27.5); Chloride 100 mmol/L (96-109); Chol/HDL Ratio 2.05 Ratio; Globulin 2.9 g/dL (1.6-3.3); Glucose 169 mg/dL (70-110); LDL Cholesterol,Calculated 84.6 mg/dL (0.0-131.0); Non-African American GFR(CKD) 51.9 (60.0-200.0); Potassium 3.9 mmol/L (3.5-5.5); Sodium 138 mmol/L (135-145); Total Protein 7.3 g/dL (6.2-8.2); VLDL Calculation 16.76 mg/dL (5.00-40.00)
[2022-01-12 19:51] LABS: Urine Creatinine 68.6 mg/dL (28.0-217.0)
== END | disposition home or self-care (01) ==
LOC: LABWHC1 10:58
PROVIDERS: ATTEND Psychiatry & Neurology Neurology
DX: E11.65 Type 2 diabetes mellitus with hyperglycemia (principal); G60.9 Hereditary and idiopathic neuropathy, unspecified; R41.3 Other amnesia
CPT/HCPCS: 36415; 80053; 80061; 82043; 82570; 82607; 83036; 84443

== ENCOUNTER → 2022-03-09 | Outpatient (CLI) | payer MEDICARE, BC ==
[2022-03-09 12:08] LABS: Appearance,Urine Clear (Clear); Bilirubin,Urine Negative (Negative); Blood,Urine Negative (Negative); Color,Urine Light Yellow; Glucose,Urine (UA) Negative (Negative); Ketones,Urine Negative (Negative); Leukocyte Esterase,Urine Moderate (Negative); Mucus,Urine Rare /hpf; Nitrite,Urine Negative (Negative); PH, Urine 6.5 (5.0-8.0); Protein,Urine Trace (Negative); RBC,Urine 1 /hpf (0-5); Specific Gravity,Urine 1.015 (1.001-1.035); Squamous Epithelial Cell,Urine 1 /hpf (0-4); Urobilinogen,Urine <2.0 mg/dL (<2.0); WBC,Urine 2 /hpf (0-5)
[2022-03-09 12:12] LABS: Protein/Creatinine Ratio,Urine 0.714
[2022-03-09 19:57] LABS: Basophils # (A) 0.05 X 10*3/uL (0.00-0.10); Basophils % (A) 0.8 %; Eosinophils # (A) 0.27 X 10*3/uL (0.04-0.35); Eosinophils % (A) 4.1 %; HCT 36.7 % (37.2-46.3); HGB 11.7 g/dL (12.0-15.0); Immature Grans, Automated 0.3 %; Lymphocytes # (A) 1.43 X 10*3/uL (0.90-5.00); Lymphocytes % (A) 21.6 %; MCH 30.6 pg (27.0-32.0); MCHC 31.9 g/dL (32.0-37.0); MCV 96.1 fL (80.0-97.0); Mean Platelet Volume 11.3 fL (9.5-12.2); Monocytes # (A) 0.43 X 10*3/uL (0.20-1.00); Monocytes % (A) 6.5 %; NRBC Per 100 WBC 0 /100 WBCS (0.0-0.0); Neutrophils # (A) 4.42 X 10*3/uL (1.80-7.70); Neutrophils % (A) 66.7 %; Platelet Count 311 X 10*3/uL (140-440); RBC 3.82 X 10*6/uL (4.10-5.20); RDW 14.9 % (11.5-14.5); WBC 6.62 X 10*3/uL (4.50-10.00)
[2022-03-09 20:32] LABS: % Iron Saturation 24.64 (12.00-45.00); African American GFR (CKD) 63.8 (60.0-200.0); Anion Gap 11.6 mmol/L (10.00-18.00); BUN/Creat Ratio 30.1 Ratio (12.00-20.00); Blood Urea Nitrogen 30.1 mg/dL (9.0-27.0); Calcium 9.9 mg/dL (8.7-10.3); Carbon Dioxide 26.4 mmol/L (20.0-27.5); Non-African American GFR(CKD) 55.1 (60.0-200.0); Phosphorus 3.4 mg/dL (2.4-5.1); Potassium 4.1 mmol/L (3.5-5.5); Uric Acid 5.8 mg/dL (2.9-7.7)
[2022-03-09 21:27] LABS: Albumin 4.3 g/dL (3.8-4.9); Ferritin 24.5 ng/mL (10.0-291.0)
== END | disposition home or self-care (01) ==
LOC: LABWHC1 10:58
PROVIDERS: ATTEND Internal Medicine Nephrology
DX: N25.81 Secondary hyperparathyroidism of renal origin (principal); N18.31 Chronic kidney disease, stage 3a; E55.9 Vitamin D deficiency, unspecified; M10.9 Gout, unspecified; N39.0 Urinary tract infection, site not specified; D63.1 Anemia in chronic kidney disease; R80.9 Proteinuria, unspecified
CPT/HCPCS: 36415; 80048; 81001; 82040; 82306; 82570; 82728; 83540; 83550; 83735; 83970; 84100; 84156; 84550; 85025

== ENCOUNTER 2022-04-08 21:57 | Inpatient (IN) | payer MEDICARE, BC ==
[2022-04-08] MEDS ORDERED: ACETAMINOPHEN TAB 500 MG TAB PO STA (22:09)
[2022-04-08] MEDS ORDERED: SODIUM CHLORIDE 0.9% 500 ML 500 ML IV ONE (22:09)
--- NOTE | 2022-04-08 22:19 | ED ---
General Adult HPI - General Chief complaint: Weakness Stated complaint: Weakness Time Seen by Provider: 04/08/22 22:09 Source: patient, family, EMS, RN notes reviewed, old records reviewed Mode of arrival: EMS Limitations: altered mental status - History of Present Illness Initial comments: 76-year-old female who presents with increased weakness, fever. Patient has no pain complaints. She is febrile upon arrival but has stable vitals otherwise. She has bilateral lower extremity swelling and erythema. Patient has history of dementia, history is obtained from the patient and patient's is at bedside. There's been no reported cough. No vomiting. - Related Data Home Medications Medication Instructions Recorded Confirmed Bumetanide [BUMEX] 1 mg PO BID@0900,1200 10/02/14 10/29/21 Pantoprazole Sodium 40 mg PO W/BRKFST 10/02/14 10/29/21 traZODone HCL [Desyrel] 50 mg PO HS 06/06/15 10/29/21 Gabapentin [Neurontin] 100 mg PO BID@1200,1700 12/16/16 10/29/21 Apixaban [Eliquis] 5 mg PO BID-W/MEALS 09/27/18 10/29/21 Pravastatin Sodium [Pravachol] 20 mg PO W/SUPPER 09/27/18 10/29/21 carvediloL [Coreg] 6.25 mg PO BID-W/MEALS 05/01/19 10/29/21 HYDROcodone/APAP 5-325MG [[place] 1 tab PO BID@0900,2100 12/31/20 10/29/21 5-325] Levothyroxine Sodium [Synthroid] 125 mcg PO DAILY@0800 12/31/20 10/29/21 Milk Thistle 250mg 250 mg PO BID@1200,1700 12/31/20 10/29/21 amLODIPine [Norvasc] 5 mg PO BID-W/MEALS 12/31/20 10/29/21 hydrALAZINE HCL [Apresoline] 10 mg PO BID-W/MEALS 12/31/20 10/29/21 Aspirin 81 mg PO W/LUNCH 03/15/21 10/29/21 Cholecalciferol (Vitamin D3) 125 mcg PO HS 03/15/21 10/29/21 [Vitamin D3 (125 MCG = 5,000 IU)] Cyanocobalamin (Vitamin B-12) 500 mcg PO Q48H 03/15/21 10/29/21 [Vitamin B-12] Acetaminophen [Tylenol] 500 mg PO TID PRN 06/24/21 10/29/21 Cinnamon 250mg 250 mg PO BID@0900,1200 06/24/21 10/29/21 Diclofenac Sodium Gel [Voltaren 2 gm TOPICAL DAILY PRN 06/24/21 10/29/21 Gel] Insulin Aspart [NovoLOG Flexpen] 12 units SQ BID-W/MEALS 06/24/21 10/29/21 Insulin Detemir [Levemir Flextouch 14 units SQ HS 06/24/21 10/29/21 Pen] Latanoprost/Pf [Latanoprost 0.005% 1 drop BOTH EYES HS 06/24/21 10/29/21 Eye Drop] calcitrioL [Rocaltrol] 0.25 mcg PO BHATTI 06/24/21 10/29/21 Fluticasone Nasal [place] [Flonase 2 spray EA NOSTRIL DAILY PRN 10/29/21 10/29/21 Nasal [place]] Insulin Aspart [NovoLOG Flexpen] 5 units SQ W/LUNCH PRN 10/29/21 10/29/21 Mupirocin 2% Oint [Bactroban 2% 1 applic TOPICAL TID 10/29/21 10/29/21 Oint] diphenhydrAMINE HCL [Benadryl] 25 mg PO DAILY PRN 10/29/21 10/29/21 Previous Rx's Medication Instructions Recorded Ciprofloxacin HCl [Cipro] 250 mg PO Q12HR 10 Days #20 tab 11/03/21 DULoxetine HCL [Cymbalta] 60 mg PO HS cap 11/03/21 Allergies Allergy/AdvReac Type Severity Reaction Status Date / Time adhesive tape Allergy Rash/Hives Verified 04/08/22 22:03 Penicillins Allergy Anaphylaxis Verified 04/08/22 22:03 triamcinolone Allergy Unknown Verified 04/08/22 22:03 venom-honey bee Allergy Swelling Verified 04/08/22 22:03 caffeine AdvReac Nausea & Verified 04/08/22 22:03 Vomiting & Diarrhea hydrocodone bitartrate AdvReac Itching Verified 04/08/22 22:03 [From Lorcet (hydrocodone)] tramadol HCl [From Ultram] AdvReac Itching Verified 04/08/22 22:03 Review of Systems ROS Statement: Those systems with pertinent positive or pertinent negative responses have been documented in the HPI. ROS Other: All systems not noted in ROS Statement are negative. Past Medical History Past Medical History: Atrial Fibrillation, Chest Pain / Angina, Dementia, Diabetes Mellitus, Eye Disorder, Fibromyalgia, GERD/Reflux, Hyperlipidemia, Hypertension, Osteoarthritis (OA), Pneumonia, Renal Disease, Rheumatoid Arthritis (RA), Thyroid Disorder Additional Past Medical History / Comment(s): Mild glaucoma stable. BURSITIS, hx falls, past chronic sacral wound, occ Vertigo, anemia, Constipation History of Any Multi-Drug Resistant Organisms: None Reported Past Surgical History: Adenoidectomy, Cholecystectomy, Hysterectomy, Joint Replacement, Orthopedic Surgery, Tonsillectomy Additional Past Surgical History / Comment(s): 3 RIGHT KNEE SURGERIES AND 2 LEFT, TOTAL KNEE REPLACEMENTS SURGERIES. D&C'S. Lap Ignacio-en-Y gastric [place] [address] Zambrano , total hysterectomy for fibroid tumor, tubal ligation Past Anesthesia/Blood Transfusion Reactions: Motion Sickness Additional Past Anesthesia/Blood Transfusion Reaction / Comment(s): Pt received blood in 2013 without reaction. Past Psychological History: Depression Smoking Status: Never smoker Past Alcohol Use History: None Reported Past Drug Use History: None Reported - Past Family History Mother Family Medical History: Coronary Artery Disease (CAD) Additional Family Medical History / Comment(s): age 90 of heart failure. Had hx of Parkinsons and Narcolepsy Father Family Medical History: Coronary Artery Disease (CAD) Additional Family Medical History / Comment(s): age 73 of massive heart attack General Exam Limitations: altered mental status General appearance: alert Head exam: Present: atraumatic, normocephalic ENT exam: Present: mucous membranes dry Respiratory exam: Present: decreased breath sounds. Absent: respiratory distress Cardiovascular Exam: Present: regular rate, normal rhythm GI/Abdominal exam: Present: soft. Absent: distended, tenderness, guarding Extremities exam: Present: pedal edema, other (Bilateral lower extremity edema, and erythema, warmth specifically on the left.) Neurological exam: Present: alert Psychiatric exam: Present: normal affect, normal mood Skin exam: Present: warm, petechiae (Diffuse), pallor Course Vital Signs 04/08/22 22:03 Temperature 100.5 F H Pulse Rate 83 Respiratory 20 Rate Blood Pressure 146/70 O2 Sat by Pulse 97 Oximetry EKG Findings - EKG Comments: EKG Findings:: Tremor artifact limiting assessment, sinus rhythm rate of 82, no ST segment elevation, WA interval 141, QRS duration 121, QTC 392. - EKG Results: EKG: interpreted by SERINA Medical Decision Making - Medical Decision Making 76-year-old female who presents with increased weakness, fever. Patient has no pain complaints. She is febrile upon arrival but has stable vitals otherwise. She has bilateral lower extremity swelling and erythema. Workup reveals mild leukocytosis at 13. She has a normal electrolytes, mildly elevated creatinine. Chest x-ray does show some animal increased pulmonary vascular congestion. No effusion. No focal pneumonia. Patient is comfortable on room air. She will be admitted for IV antibiotics. Urinalysis is pending. Case discussed with Dr. Vergara who will admit. - Lab Data Result diagrams: 04/08/22 22:20 04/08/22 22:20 Lab Results 04/08/22 04/08/22 04/08/22 Range/Units 22:20 22:20 22:20 WBC 13.0 H (3.8-10.6) k/uL RBC 3.56 L (3.80-5.40) m/uL Hgb 11.2 L (11.4-16.0) gm/dL Hct 33.5 L (34.0-46.0) % MCV 94.3 (80.0-100.0) fL MCH 31.4 (25.0-35.0) pg MCHC 33.3 (31.0-37.0) g/dL RDW 13.4 (11.5-15.5) % Plt Count 250 (150-450) k/uL MPV 8.1 Neutrophils % 82 % Lymphocytes % 6 % Monocytes % 9 % Eosinophils % 1 % Basophils % 0 % Neutrophils # 10.7 H (1.3-7.7) k/uL Lymphocytes # 0.8 L (1.0-4.8) k/uL Monocytes # 1.2 H (0-1.0) k/uL Eosinophils # 0.1 (0-0.7) k/uL Basophils # 0.0 (0-0.2) k/uL PT 11.0 (9.0-12.0) sec INR 1.0 (<1.2) APTT 31.0 H (22.0-30.0) sec Sodium 133 L (137-145) mmol/L Potassium 3.8 (3.5-5.1) mmol/L Chloride 97 L (98-107) mmol/L Carbon Dioxide 27 (22-30) mmol/L Anion Gap 9 mmol/L BUN 41 H (7-17) mg/dL Creatinine 1.22 H (0.52-1.04) mg/dL Est GFR (CKD-EPI)AfAm 50 (>60 ml/min/1.73 sqM) Est GFR (CKD-EPI)NonAf 44 (>60 ml/min/1.73 sqM) Glucose 147 H (74-99) mg/dL Plasma Lactic Acid [place] (0.7-2.0) mmol/L Calcium 9.3 (8.4-10.2) mg/dL Magnesium 1.8 (1.6-2.3) mg/dL Total Bilirubin 0.7 (0.2-1.3) mg/dL AST 34 (14-36) U/L ALT 27 (4-34) U/L Alkaline Phosphatase 117 (38-126) U/L Troponin I (0.000-0.034) ng/mL Total Protein 7.1 (6.3-8.2) g/dL Albumin 4.1 (3.5-5.0) g/dL Coronavirus (PCR) (Not Detectd) Influenza Type A RNA (Not Detectd) Influenza Type B (PCR) (Not Detectd) 04/08/22 04/08/22 04/08/22 Range/Units 22:20 22:20 22:20 WBC (3.8-10.6) k/uL RBC (3.80-5.40) m/uL Hgb (11.4-16.0) gm/dL Hct (34.0-46.0) % MCV (80.0-100.0) fL MCH (25.0-35.0) pg MCHC (31.0-37.0) g/dL RDW (11.5-15.5) % Plt Count (150-450) k/uL MPV Neutrophils % % Lymphocytes % % Monocytes % % Eosinophils % % Basophils % % Neutrophils # (1.3-7.7) k/uL Lymphocytes # (1.0-4.8) k/uL Monocytes # (0-1.0) k/uL Eosinophils # (0-0.7) k/uL Basophils # (0-0.2) k/uL PT (9.0-12.0) sec INR (<1.2) APTT (22.0-30.0) sec Sodium (137-145) mmol/L Potassium (3.5-5.1) mmol/L Chloride (98-107) mmol/L Carbon Dioxide (22-30) mmol/L Anion Gap mmol/L BUN (7-17) mg/dL Creatinine (0.52-1.04) mg/dL Est GFR (CKD-EPI)AfAm (>60 ml/min/1.73 sqM) Est GFR (CKD-EPI)NonAf (>60 ml/min/1.73 sqM) Glucose (74-99) mg/dL Plasma Lactic Acid [place] 1.0 (0.7-2.0) mmol/L Calcium (8.4-10.2) mg/dL Magnesium (1.6-2.3) mg/dL Total Bilirubin (0.2-1.3) mg/dL AST (14-36) U/L ALT (4-34) U/L Alkaline Phosphatase (38-126) U/L Troponin I 0.019 (0.000-0.034) ng/mL Total Protein (6.3-8.2) g/dL Albumin (3.5-5.0) g/dL Coronavirus (PCR) (Not Detectd) Influenza Type A RNA Not Detected (Not Detectd) Influenza Type B (PCR) Not Detected (Not Detectd) 04/08/22 Range/Units 22:20 WBC (3.8-10.6) k/uL RBC (3.80-5.40) m/uL Hgb (11.4-16.0) gm/dL Hct (34.0-46.0) % MCV (80.0-100.0) fL MCH (25.0-35.0) pg MCHC (31.0-37.0) g/dL RDW (11.5-15.5) % Plt Count (150-450) k/uL MPV Neutrophils % % Lymphocytes % % Monocytes % % Eosinophils % % Basophils % % Neutrophils # (1.3-7.7) k/uL Lymphocytes # (1.0-4.8) k/uL Monocytes # (0-1.0) k/uL Eosinophils # (0-0.7) k/uL Basophils # (0-0.2) k/uL PT (9.0-12.0) sec INR (<1.2) APTT (22.0-30.0) sec Sodium (137-145) mmol/L Potassium (3.5-5.1) mmol/L Chloride (98-107) mmol/L Carbon Dioxide (22-30) mmol/L Anion Gap mmol/L BUN (7-17) mg/dL Creatinine (0.52-1.04) mg/dL Est GFR (CKD-EPI)AfAm (>60 ml/min/1.73 sqM) Est GFR (CKD-EPI)NonAf (>60 ml/min/1.73 sqM) Glucose (74-99) mg/dL Plasma Lactic Acid [place] (0.7-2.0) mmol/L Calcium (8.4-10.2) mg/dL Magnesium (1.6-2.3) mg/dL Total Bilirubin (0.2-1.3) mg/dL AST (14-36) U/L ALT (4-34) U/L Alkaline Phosphatase (38-126) U/L Troponin I (0.000-0.034) ng/mL Total Protein (6.3-8.2) g/dL Albumin (3.5-5.0) g/dL Coronavirus (PCR) Not Detected (Not Detectd) Influenza Type A RNA (Not Detectd) Influenza Type B (PCR) (Not Detectd) Disposition Clinical Impression: Generalized weakness, Cellulitis Disposition: ADMITTED IP TO THIS HOSP Condition: Stable Is patient prescribed a controlled substance at d/c from ED?: No Referrals: Taina Vergara MD [Primary Care Provider] - 1-2 days Time of Disposition: 00:24
[2022-04-08 22:31] LABS: Basophils % (A) 0 %; Eosinophils # (A) 0.1 k/uL (0-0.7); Eosinophils % (A) 1 %; HCT 33.5 % (34.0-46.0); HGB 11.2 gm/dL (11.4-16.0); Lymphocytes # (A) 0.8 k/uL (1.0-4.8); Lymphocytes % (A) 6 %; MCH 31.4 pg (25.0-35.0); MCHC 33.3 g/dL (31.0-37.0); MCV 94.3 fL (80.0-100.0); Mean Platelet Volume 8.1; Monocytes # (A) 1.2 k/uL (0-1.0); Monocytes % (A) 9 %; Neutrophils # (A) 10.7 k/uL (1.3-7.7); Neutrophils % (A) 82 %; Platelet Count 250 k/uL (150-450); RBC 3.56 m/uL (3.80-5.40); RDW 13.4 % (11.5-15.5)
[2022-04-08 22:46] LABS: Albumin 4.1 g/dL (3.5-5.0); Calcium 9.3 mg/dL (8.4-10.2); Magnesium 1.8 mg/dL (1.6-2.3); Potassium 3.8 mmol/L (3.5-5.1); Total Bilirubin 0.7 mg/dL (0.2-1.3); Total Protein 7.1 g/dL (6.3-8.2)
--- NOTE | 2022-04-08 22:55 | XR ---
EXAMINATION TYPE: XR chest 2V DATE OF EXAM: 04/08/2022 COMPARISON: 10/29/2021 HISTORY: Weakness TECHNIQUE: 2 views FINDINGS: Heart is normal. Lungs are clear of consolidation. There is coarsening of interstitial amrit ings. There is spurring in the thoracic spine. IMPRESSION: There is mild pulmonary interstitial edema which is slightly increased compared to last e xam. Heart failure is possible. No definite pleural fluid seen.
[2022-04-08] MEDS ORDERED: VANCOMYCIN IV PER PHARMACY 1 EACH MISC MISCELLANE PRN (22:56)
[2022-04-08] MEDS ORDERED: LEVOFLOXACIN 500MG-D5W PMX 500 MG in DEXTROSE/WATER 1 100ML.BAG IVPB STA (22:57)
[2022-04-08] MEDS ORDERED: VANCOMYCIN 1,500 MG in SODIUM CHLORIDE 0.9% 500 ML 500 ML IVPB ONE (23:00)
[2022-04-09] MEDS ORDERED: NALOXONE 0.4 MG/ML 1 ML VIAL IV PRN (00:20)
[2022-04-09 01:58] LABS: Appearance,Urine Clear (Clear); Bacteria,Urine Many /hpf; Bilirubin,Urine Negative (Negative); Blood,Urine Moderate (Negative); Color,Urine Light Yellow; Glucose,Urine (UA) Negative (Negative); Hyaline Casts,Urine 1 /lpf (0-2); Ketones,Urine Trace (Negative); Leukocyte Esterase,Urine Large (Negative); Nitrite,Urine Positive (Negative); PH, Urine 5.5 (5.0-8.0); Protein,Urine 1+ (Negative); RBC,Urine 16 /hpf (0-5); Specific Gravity,Urine 1.008 (1.001-1.035); Squamous Epithelial Cell,Urine 1 /hpf (0-4); Urobilinogen,Urine <2.0 mg/dL (<2.0); WBC,Urine 27 /hpf (0-5)
[2022-04-09] MEDS: ACETAMINOPHEN TAB 325 MG TAB PO PRN (07:50)
[2022-04-09] MEDS ORDERED: HEPARIN SODIUM 1,000 UN/ML (10ML VL) IV PRN (07:56)
[2022-04-09] MEDS ORDERED: HEPARIN SODIUM 1,000 UN/ML (10ML VL) IV ONE (07:56)
[2022-04-09] MEDS ORDERED: HEPARIN SOD,PORK IN 0.45% NACL 25,000 UNIT in 0.45% NACL 1 250ML.BAG IV SCH (08:00)
[2022-04-09] MEDS ORDERED: DILTIAZEM DRIP BOLUS FROM BAG 1 MG SOLN IV ONE (08:11)
[2022-04-09 08:35] LABS: Basophils % (A) 0 %; Eosinophils # (A) 0.1 k/uL (0-0.7); Eosinophils % (A) 1 %; HCT 34.9 % (34.0-46.0); HGB 11.5 gm/dL (11.4-16.0); Lymphocytes # (A) 0.4 k/uL (1.0-4.8); Lymphocytes % (A) 2 %; MCH 30.8 pg (25.0-35.0); MCHC 32.8 g/dL (31.0-37.0); MCV 93.8 fL (80.0-100.0); Mean Platelet Volume 9.2; Monocytes # (A) 0.8 k/uL (0-1.0); Monocytes % (A) 5 %; Neutrophils # (A) 15.6 k/uL (1.3-7.7); Neutrophils % (A) 91 %; Platelet Count 223 k/uL (150-450); RBC 3.72 m/uL (3.80-5.40); RDW 13.8 % (11.5-15.5); WBC 17.1 k/uL (3.8-10.6)
[2022-04-09] MEDS: DILTIAZEM 125 MG in SODIUM CHLORIDE 0.9% 100 ML IV SCH ×2 (08:40→23:02)
[2022-04-09 09:05] LABS: INR 1.1 (<1.2); Partial Thromboplastin Time 22.1 sec (22.0-30.0); Prothrombin Time 11.5 sec (9.0-12.0)
[2022-04-09] MEDS ORDERED: DEXTROSE 50% SYRINGE 50 ML IVP PRN ×2 (09:49)
--- NOTE | 2022-04-09 09:55 | P.HPIM ---
History of Present Illness H&P Date: 04/09/22 Chief Complaint: Fever lower extremity cellulitis and UTI This is a 76-year-old female patient. Patient is a poor historian no family at bedside history is obtained from ER record. According to your records patient presented with concerns of fever and weakness. Patient does have past medical history of atrial fibrillation, chest pain, diabetes mellitus, fibromyalgia, GE RD, hyperlipidemia, hypertension, osteoarthritis, rheumatoid arthritis and depression. Chest x-ray completed showing mild pulmonary interstitial edema which is slightly increased compared to last exam heart failure is possible no definitive pleural fluid seen. Lower extremities are noted to have erythema and +1 edematous. UA positive for urinary tract infection. White blood cell elevated at 17.1. Elevated temp 100.5. Upon arrival to the ER patient went into A. fib with RVR. Cardizem drip started and cardiology services have been consulted this time patient will be admitted. Patient started on IV vancomycin. Infectious disease and cardiology services consulted. Urine blood and sputum cultures ordered. At this time patient is resting comfortably in bed. Patient does wake up and follow commands. Patient denies chest pain or shortness of breath. Patient denies nausea vomiting or diarrhea. Patient denies any urinary burning or frequency Review of Systems Please refer to waters unremarkable Past Medical History Past Medical History: Atrial Fibrillation, Chest Pain / Angina, Dementia, Diabetes Mellitus, Eye Disorder, Fibromyalgia, GERD/Reflux, Hyperlipidemia, Hypertension, Osteoarthritis (OA), Pneumonia, Renal Disease, Rheumatoid Arthritis (RA), Thyroid Disorder Additional Past Medical History / Comment(s): Mild glaucoma stable. BURSITIS, hx falls, past chronic sacral wound, occ Vertigo, anemia, Constipation History of Any Multi-Drug Resistant Organisms: None Reported Past Surgical History: Adenoidectomy, Cholecystectomy, Hysterectomy, Joint Replacement, Orthopedic Surgery, Tonsillectomy Additional Past Surgical History / Comment(s): 3 RIGHT KNEE SURGERIES AND 2 LEFT, TOTAL KNEE REPLACEMENTS SURGERIES. D&C'S. Lap Ignacio-en-Y gastric [place] [address] Zambrano , total hysterectomy for fibroid tumor, tubal ligation Past Anesthesia/Blood Transfusion Reactions: Motion Sickness Additional Past Anesthesia/Blood Transfusion Reaction / Comment(s): Pt received blood in 2012 without reaction. Past Psychological History: Depression Smoking Status: Never smoker Past Alcohol Use History: None Reported Past Drug Use History: None Reported - Past Family History Mother Family Medical History: Coronary Artery Disease (CAD) Additional Family Medical History / Comment(s): age 90 of heart failure. Had hx of Parkinsons and Narcolepsy Father Family Medical History: Coronary Artery Disease (CAD) Additional Family Medical History / Comment(s): age 73 of massive heart attack Medications and Allergies Home Medications Medication Instructions Recorded Confirmed Type Bumetanide [BUMEX] 1 mg PO BID@0900,1200 10/02/14 10/29/21 History Pantoprazole Sodium 40 mg PO W/BRKFST 10/02/14 10/29/21 History traZODone HCL [Desyrel] 50 mg PO HS 06/06/15 10/29/21 History Gabapentin [Neurontin] 100 mg PO BID@1200,1700 12/16/16 10/29/21 History Apixaban [Eliquis] 5 mg PO BID-W/MEALS 09/27/18 10/29/21 History Pravastatin Sodium [Pravachol] 20 mg PO W/SUPPER 09/27/18 10/29/21 History carvediloL [Coreg] 6.25 mg PO BID-W/MEALS 05/01/19 10/29/21 History HYDROcodone/APAP 5-325MG [[place] 1 tab PO BID@0900,2100 12/31/20 10/29/21 History 5-325] Levothyroxine Sodium [Synthroid] 125 mcg PO DAILY@0800 12/31/20 10/29/21 History Milk Thistle 250mg 250 mg PO BID@1200,1700 12/31/20 10/29/21 History amLODIPine [Norvasc] 5 mg PO BID-W/MEALS 12/31/20 10/29/21 History hydrALAZINE HCL [Apresoline] 10 mg PO BID-W/MEALS 12/31/20 10/29/21 History Aspirin 81 mg PO W/LUNCH 03/15/21 10/29/21 History Cholecalciferol (Vitamin D3) 125 mcg PO HS 03/15/21 10/29/21 History [Vitamin D3 (125 MCG = 5,000 IU)] Cyanocobalamin (Vitamin B-12) 500 mcg PO Q48H 03/15/21 10/29/21 History [Vitamin B-12] Acetaminophen [Tylenol] 500 mg PO TID PRN 06/24/21 10/29/21 History Cinnamon 250mg 250 mg PO BID@0900,1200 06/24/21 10/29/21 History Diclofenac Sodium Gel [Voltaren 2 gm TOPICAL DAILY PRN 06/24/21 10/29/21 History Gel] Insulin Aspart [NovoLOG Flexpen] 12 units SQ BID-W/MEALS 06/24/21 10/29/21 History Insulin Detemir [Levemir Flextouch 14 units SQ HS 06/24/21 10/29/21 History Pen] Latanoprost/Pf [Latanoprost 0.005% 1 drop BOTH EYES HS 06/24/21 10/29/21 History Eye Drop] calcitrioL [Rocaltrol] 0.25 mcg PO BHATTI 06/24/21 10/29/21 History Fluticasone Nasal [place] [Flonase 2 spray EA NOSTRIL DAILY PRN 10/29/21 10/29/21 History Nasal [place]] Insulin Aspart [NovoLOG Flexpen] 5 units SQ W/LUNCH PRN 10/29/21 10/29/21 Hi story Mupirocin 2% Oint [Bactroban 2% 1 applic TOPICAL TID 10/29/21 10/29/21 History Oint] diphenhydrAMINE HCL [Benadryl] 25 mg PO DAILY PRN 10/29/21 10/29/21 History Ciprofloxacin HCl [Cipro] 250 mg PO Q12HR 10 Days #20 tab 11/03/21 Rx DULoxetine HCL [Cymbalta] 60 mg PO HS cap 11/03/21 Rx Allergies Allergy/AdvReac Type Severity Reaction Status Date / Time adhesive tape Allergy Rash/Hives Verified 04/08/22 22:03 Penicillins Allergy Anaphylaxis Verified 04/08/22 22:03 triamcinolone Allergy Unknown Verified 04/08/22 22:03 venom-honey bee Allergy Swelling Verified 04/08/22 22:03 caffeine AdvReac Nausea & Verified 04/08/22 22:03 Vomiting & Diarrhea hydrocodone bitartrate AdvReac Itching Verified 04/08/22 22:03 [From Lorcet (hydrocodone)] tramadol HCl [From Ultram] AdvReac Itching Verified 04/08/22 22:03 Physical Exam Vitals: Vital Signs Temp Pulse Resp BP Pulse Ox 04/09/22 09:20 141 H 17 133/77 92 L 04/09/22 09:00 129 H 15 118/77 96 04/09/22 08:10 166 H 20 139/85 97 04/09/22 08:00 146 H 20 152/94 04/09/22 06:40 99.0 F 04/09/22 05:00 76 16 140/76 98 04/09/22 04:00 73 16 131/68 98 04/09/22 03:00 73 16 112/61 99 04/09/22 02:00 78 16 116/64 99 04/09/22 01:00 77 16 112/59 98 04/09/22 00:00 80 16 114/61 99 04/08/22 23:00 99 16 121/85 99 04/08/22 22:03 100.5 F H 83 20 146/70 97 Intake and Output 04/08/22 04/09/22 04/09/22 22:59 06:59 14:59 Intake Total 4.083 Balance 4.083 Intake: Intake, IV Titration 4.083 Amount Diltiazem 125 mg In 4.083 Sodium Chloride 0.9% 100 ml @ 5 MG/HR 5 mls/hr IV .Q24H [facility] Rx#:[id number] Other: Weight 90.718 kg Head normocephalic Neck supple Lungs diminished bilaterally Heart irregular heart rate atrial fibrillation Abdomen is soft nontender nondistended positive bowel sounds no hepatosplenomegaly Extremities no edema. Bilateral lower extremity erythema Neuro alert and orientated to 3 Results CBC & Chem 7: 04/09/22 08:23 04/08/22 22:20 Labs: Abnormal Lab Results - Last 24 Hours (Table) 04/08/22 04/08/22 04/08/22 Range/Units 22:20 22:20 22:20 WBC 13.0 H (3.8-10.6) k/uL RBC 3.56 L (3.80-5.40) m/uL Hgb 11.2 L (11.4-16.0) gm/dL Hct 33.5 L (34.0-46.0) % Neutrophils # 10.7 H (1.3-7.7) k/uL Lymphocytes # 0.8 L (1.0-4.8) k/uL Monocytes # 1.2 H (0-1.0) k/uL APTT 31.0 H (22.0-30.0) sec Sodium 133 L (137-145) mmol/L Chloride 97 L (98-107) mmol/L BUN 41 H (7-17) mg/dL Creatinine 1.22 H (0.52-1.04) mg/dL Glucose 147 H (74-99) mg/dL Urine Protein (Negative) Urine Ketones (Negative) Urine Blood (Negative) Urine Nitrite (Negative) Ur Leukocyte Esterase (Negative) Urine RBC (0-5) /hpf Urine WBC (0-5) /hpf Urine WBC Clumps (None) /hpf Urine Bacteria (None) /hpf 04/09/22 04/09/22 Range/Units 01:37 08:23 WBC 17.1 H (3.8-10.6) k/uL RBC 3.72 L (3.80-5.40) m/uL Hgb (11.4-16.0) gm/dL Hct (34.0-46.0) % Neutrophils # 15.6 H (1.3-7.7) k/uL Lymphocytes # 0.4 L (1.0-4.8) k/uL Monocytes # (0-1.0) k/uL APTT (22.0-30.0) sec Sodium (137-145) mmol/L Chloride (98-107) mmol/L BUN (7-17) mg/dL Creatinine (0.52-1.04) mg/dL Glucose (74-99) mg/dL Urine Protein 1+ H (Negative) Urine Ketones Trace H (Negative) Urine Blood Moderate H (Negative) Urine Nitrite Positive H (Negative) Ur Leukocyte Esterase Large H (Negative) Urine RBC 16 H (0-5) /hpf Urine WBC 27 H (0-5) /hpf Urine WBC Clumps Rare H (None) /hpf Urine Bacteria Many H (None) /hpf Assessment and Plan Assessment: 1. Fever likely secondary to UTI and lower extremity cellulitis 2. Urinary tract infection. Urine culture ordered 2. Bilateral lower extremity cellulitis 3. Atrial fibrillation with rapid ventricular response. Patient started on Cardizem drip cardiology service 4. History of essential hypertension 5. History of hypothyroidism 6. History of insulin-dependent diabetes mellitus 7. History of osteoarthritis 8. Chronic diastolic heart failure 9. Chronic kidney disease stage III 10. History of paroxysmal atrial fibrillation maintained on eliquis At this time patient will be admitted Cardiology and infectious disease services consulted Bloody urine and sputum cultures ordered Patient maintained on Cardizem drip Patient started on IV antibiotics Time with Patient: Greater than 30 (Greater than 60% of the total time spent in counseling and coordination of care)
--- NOTE | 2022-04-09 10:07 | P.CRDCN ---
History of Present Illness Consult date: 04/09/22 History of present illness: HISTORY OF PRESENT ILLNESS: This is a 76-year-old female with a past medical history significant for congestive heart failure, paroxysmal atrial fibrillation, diabetes, hypothyroidism, hypertension, and hyperlipidemia. Patient follows with Dr. Crump in [place]. We have been asked to see the patient in consu ltation for A. fib with RVR. Patient examined at the bedside in the emergency room. There is no family present. Per the emergency room nurse, the patient was brought to the hospital for increasing confusion at home and possible cellulitis of her lower extremities. The patient is a poor historian. She currently denies chest pain or pressure. Denies shortness of breath. Denies palpitations. She reports generalized pain at the time of my examination. She is currently in atrial fibrillation with RVR. * EKG reveals A. fib with RVR * Chest xray there is mild pulmonary interstitial edema which is slightly increased compared to last exam. Heart failure is possible. No definite pleural fluid seen. * Laboratory data: WBC 17.1. Hemoglobin 11.5. Platelet count 223. Sodium 133. Potassium 3.8. BUN 41. Creatinine 1.22. Troponin negative 1. * Current home cardiac medication list has not been verified at the time of this dictation * Most recent echocardiogram obtained in October 2021 revealed ejection fraction 55- 60%, mild MR, moderate TR REVIEW OF SYSTEMS: At the time of my exam: CONSTITUTIONAL: Denies fever or chills. HEENT: Denies blurred vision, vision changes, or eye pain. Denies hemoptysis CARDIOVASCULAR: Denies chest pain. Denies orthopnea. Denies PND. Denies palpitations RESPIRATORY: Denies shortness of breath. GASTROINTESTINAL: Denies abdominal pain. Denies nausea or vomiting. HEMATOLOGIC: Denies bleeding disorders. GENITOURINARY: Denies any blood in urine. SKIN: Denies pruitis. Denies rash. PHYSICAL EXAM: VITAL SIGNS: Reviewed. GENERAL: Well-developed in no acute distress. HEENT: Head is normocephalic. Pupils are equal, round. Sclerae anicteric. Mucous membranes of the mouth are moist. Neck supple. No JVD or thyromegaly LUNGS: Respirations even and unlabored. Lungs essentially clear to auscultation bilaterally. HEART: Tachycardic. Irregular rate and rhythm. S1 and S2 heard. ABDOMEN: Soft. Nondistended. Nontender. EXTREMITIES: Normal range of motion. No clubbing or cyanosis. Peripheral pulses intact. Bilateral lower extremity edema with redness just above the ankles bilaterally NEUROLOGIC: Awake and alert. Oriented x 1-2. ASSESSMENT: Altered mental status Possible cellulitis of bilateral lower extremities Paroxysmal atrial fibrillation ablation with RVR Hypertension Hyperlipidemia Diabetes Chronic heart failure with preserved ejection fraction PLAN: No need to repeat echocardiogram Resume home cardiac medications when medication list has been verified Continue Eliquis for anticoagulation Begin Cardizem drip at 5 mg an hour Continue telemetry monitoring Further recommendations pending patient's course Nurse practitioner note has been reviewed by physician. Signing provider agrees with the documented findings, assessment, and plan of care. Past Medical History Past Medical History: Atrial Fibrillation, Chest Pain / Angina, Dementia, Diabetes Mellitus, Eye Disorder, Fibromyalgia, GERD/Reflux, Hyperlipidemia, Hypertension, Osteoarthritis (OA), Pneumonia, Renal Disease, Rheumatoid Arthritis (RA), Thyroid Disorder Additional Past Medical History / Comment(s): Mild glaucoma stable. BURSITIS, hx falls, past chronic sacral wound, occ Vertigo, anemia, Constipation History of Any Multi-Drug Resistant Organisms: None Reported Past Surgical History: Adenoidectomy, Cholecystectomy, Hysterectomy, Joint Replacement, Orthopedic Surgery, Tonsillectomy Additional Past Surgical History / Comment(s): 3 RIGHT KNEE SURGERIES AND 2 LEFT, TOTAL KNEE REPLACEMENTS SURGERIES. D&C'S. Lap Ignacio-en-Y gastric [place] [address] Zambrano , total hysterectomy for fibroid tumor, tubal ligation Past Anesthesia/Blood Transfusion Reactions: Motion Sickness Additional Past Anesthesia/Blood Transfusion Reaction / Comment(s): Pt received blood in 2012 without reaction. Past Psychological History: Depression Smoking Status: Never smoker Past Alcohol Use History: None Reported Past Drug Use History: None Reported - Past Family History Mother Family Medical History: Coronary Artery Disease (CAD) Additional Family Medical History / Comment(s): age 90 of heart failure. Had hx of Parkinsons and Narcolepsy Father Family Medical History: Coronary Artery Disease (CAD) Additional Family Medical History / Comment(s): age 73 of massive heart attack Medications and Allergies Home Medications Medication Instructions Recorded Confirmed Type Bumetanide [BUMEX] 1 mg PO BID@0900,1200 10/02/14 10/29/21 History Pantoprazole Sodium 40 mg PO W/BRKFST 10/02/14 10/29/21 History traZODone HCL [Desyrel] 50 mg PO HS 06/06/15 10/29/21 History Gabapentin [Neurontin] 100 mg PO BID@1200,1700 12/16/16 10/29/21 History Apixaban [Eliquis] 5 mg PO BID-W/MEALS 09/27/18 10/29/21 History Pravastatin Sodium [Pravachol] 20 mg PO W/SUPPER 09/27/18 10/29/21 History carvediloL [Coreg] 6.25 mg PO BID-W/MEALS 05/01/19 10/29/21 History HYDROcodone/APAP 5-325MG [[place] 1 tab PO BID@0900,2100 12/31/20 10/29/21 History 5-325] Levothyroxine Sodium [Synthroid] 125 mcg PO DAILY@0800 12/31/20 10/29/21 History Milk Thistle 250mg 250 mg PO BID@1200,1700 12/31/20 10/29/21 History amLODIPine [Norvasc] 5 mg PO BID-W/MEALS 12/31/20 10/29/21 History hydrALAZINE HCL [Apresoline] 10 mg PO BID-W/MEALS 12/31/20 10/29/21 History Aspirin 81 mg PO W/LUNCH 03/15/21 10/29/21 History Cholecalciferol (Vitamin D3) 125 mcg PO HS 03/15/21 10/29/21 History [Vitamin D3 (125 MCG = 5,000 IU)] Cyanocobalamin (Vitamin B-12) 500 mcg PO Q48H 03/15/21 10/29/21 History [Vitamin B-12] Acetaminophen [Tylenol] 500 mg PO TID PRN 06/24/21 10/29/21 History Cinnamon 250mg 250 mg PO BID@0900,1200 06/24/21 10/29/21 History Diclofenac Sodium Gel [Voltaren 2 gm TOPICAL DAILY PRN 06/24/21 10/29/21 History Gel] Insulin Aspart [NovoLOG Flexpen] 12 units SQ BID-W/MEALS 06/24/21 10/29/21 History Insulin Detemir [Levemir Flextouch 14 units SQ HS 06/24/21 10/29/21 History Pen] Latanoprost/Pf [Latanoprost 0.005% 1 drop BOTH EYES HS 06/24/21 10/29/21 History Eye Drop] calcitrioL [Rocaltrol] 0.25 mcg PO BHATTI 06/24/21 10/29/21 History Fluticasone Nasal [place] [Flonase 2 spray EA NOSTRIL DAILY PRN 10/29/21 10/29/21 History Nasal [place]] Insulin Aspart [NovoLOG Flexpen] 5 units SQ W/LUNCH PRN 10/29/21 10/29/21 History Mupirocin 2% Oint [Bactroban 2% 1 applic TOPICAL TID 10/29/21 10/29/21 History Oint] diphenhydrAMINE HCL [Benadryl] 25 mg PO DAILY PRN 10/29/21 10/29/21 History Ciprofloxacin HCl [Cipro] 250 mg PO Q12HR 10 Days #20 tab 11/03/21 Rx DULoxetine HCL [Cymbalta] 60 mg PO HS cap 11/03/21 Rx Allergies Allergy/AdvReac Type Severity Reaction Status Date / Time adhesive tape Allergy Rash/Hives Verified 04/08/22 22:03 Penicillins Allergy Anaphylaxis Verified 04/08/22 22:03 triamcinolone Allergy Unknown Verified 04/08/22 22:03 venom-honey bee Allergy Swelling Verified 04/08/22 22:03 caffeine AdvReac Nausea & Verified 04/08/22 22:03 Vomiting & Diarrhea hydrocodone bitartrate AdvReac Itching Verified 04/08/22 22:03 [From Lorcet (hydrocodone)] tramadol HCl [From Ultram] AdvReac Itching Verified 04/08/22 22:03 Physical Exam Vitals: Vital Signs Temp Pulse Resp BP Pulse Ox 04/09/22 09:20 141 H 17 133/77 92 L 04/09/22 09:00 129 H 15 118/77 96 04/09/22 08:10 166 H 20 139/85 97 04/09/22 08:00 146 H 20 152/94 04/09/22 06:40 99.0 F 04/09/22 05:00 76 16 140/76 98 04/09/22 04:00 73 16 131/68 98 04/09/22 03:00 73 16 112/61 99 04/09/22 02:00 78 16 116/64 99 04/09/22 01:00 77 16 112/59 98 04/09/22 00:00 80 16 114/61 99 04/08/22 23:00 99 16 121/85 99 04/08/22 22:03 100.5 F H 83 20 146/70 97 Intake and Output 04/08/22 04/09/22 04/09/22 22:59 06:59 14:59 Intake Total 4.083 Balance 4.083 Intake: Intake, IV Titration 4.083 Amount Diltiazem 125 mg In 4.083 Sodium Chloride 0.9% 100 ml @ 5 MG/HR 5 mls/hr IV .Q24H [facility] Rx#:[id number] Other: Weight 90.718 kg Results 04/09/22 08:23 04/08/22 22:20 Cardiac Enzymes 04/08/22 04/08/22 Range/Units 22:20 22:20 AST 34 (14-36) U/L Troponin I 0.019 (0.000-0.034) ng/mL Coagulation 04/08/22 04/09/22 Range/Units 22:20 08:23 PT 11.0 11.5 (9.0-12.0) sec APTT 31.0 H 22.1 (22.0-30.0) sec CBC 04/08/22 04/09/22 Range/Units 22:20 08:23 WBC 13.0 H 17.1 H (3.8-10.6) k/uL RBC 3.56 L 3.72 L (3.80-5.40) m/uL Hgb 11.2 L 11.5 (11.4-16.0) gm/dL Hct 33.5 L 34.9 (34.0-46.0) % Plt Count 250 223 (150-450) k/uL Comprehensive Metabolic Panel 04/08/22 Range/Units 22:20 Sodium 133 L (137-145) mmol/L Potassium 3.8 (3.5-5.1) mmol/L Chloride 97 L (98-107) mmol/L Carbon Dioxide 27 (22-30) mmol/L BUN 41 H (7-17) mg/dL Creatinine 1.22 H (0.52-1.04) mg/dL Glucose 147 H (74-99) mg/dL Calcium 9.3 (8.4-10.2) mg/dL AST 34 (14-36) U/L ALT 27 (4-34) U/L Alkaline Phosphatase 117 (38-126) U/L Total Protein 7.1 (6.3-8.2) g/dL Albumin 4.1 (3.5-5.0) g/dL Current Medications Generic Name Dose Route Start Last Admin Trade Name Freq PRN Reason Stop Dose Admin Acetaminophen 650 mg 04/09/22 00:20 04/09/22 07:50 Acetaminophen Tab 325 Mg Tab PO 650 mg Q6HR PRN Administration Mild Pain or Fever > 100.5 Apixaban 5 mg 04/09/22 09:00 Apixaban 5 Mg Tab PO BID BUTCH Protocol Dextrose/Water 25 ml 04/09/22 09:49 Dextrose 50% Syringe 50 Ml IVP PER PROTOCOL PRN Hypoglycemia Protocol Dextrose/Water 50 ml 04/09/22 09:49 Dextrose 50% Syringe 50 Ml IVP PER PROTOCOL PRN Hypoglycemia Protocol Vancomycin HCl 1,500 mg/ 500 mls @ 167 mls/hr 04/10/22 00:00 Sodium Chloride IVPB Q24H BUTCH Diltiazem HCl 125 mg/ Sodium 125 mls @ 5 mls/hr 04/09/22 08:15 04/09/22 09:29 Chloride IV 7.5 mg/hr .Q24H BUT[facility] 7.5 mls/hr Infusion 5 MG/HR Insulin Aspart 0 unit 04/09/22 12:30 Insulin Aspart (Novolog) 100 Unit/Ml Vial SQ ACHS BUTCH Protocol Naloxone HCl 0.2 mg 04/09/22 00:20 Naloxone 0.4 Mg/Ml 1 Ml Vial IV Q2M PRN Opioid Reversal Intake and Output 04/08/22 04/09/22 04/09/22 22:59 06:59 14:59 Intake Total 4.083 Balance 4.083 Intake: Intake, IV Titration 4.083 Amount Diltiazem 125 mg In 4.083 Sodium Chloride 0.9% 100 ml @ 5 MG/HR 5 mls/hr IV .Q24H [facility] Rx#:[id number] Other: Weight 90.718 kg 04/09/22 08:23 04/08/22 22:20
[2022-04-09] MEDS: APIXABAN 5 MG TAB PO SCH ×2 (10:14→20:25)
[2022-04-09 12:25] LABS: Glucose,Whole Blood 241 mg/dL (70-110)
[2022-04-09] MEDS: INSULIN ASPART (NovoLOG) 100 UNIT/ML VIAL SQ SCH ×3 (12:30→20:25)
[2022-04-09 16:26] LABS: Glucose,Whole Blood 270 mg/dL (70-110)
[2022-04-09 19:49] VITALS: RESP 18
[2022-04-09 20:19] LABS: Glucose,Whole Blood 303 mg/dL (70-110)
[2022-04-09] MEDS: METOPROLOL TARTRATE 25 MG TAB PO SCH (20:25)
[2022-04-09] MEDS: LEVOFLOXACIN 250MG-D5W PMX 250 MG in DEXTROSE/WATER 1 50ML.BAG IVPB SCH (20:25)
[2022-04-09] MEDS ORDERED: LEVOFLOXACIN 500MG-D5W PMX 500 MG in DEXTROSE/WATER 1 100ML.BAG IVPB SCH (21:00)
[2022-04-09] MEDS: VANCOMYCIN 1,500 MG in SODIUM CHLORIDE 0.9% 500 ML 500 ML IVPB SCH (23:03)
[2022-04-10] MEDS: METOPROLOL TARTRATE 25 MG TAB PO SCH (10:23)
[2022-04-10] MEDS: INSULIN ASPART (NovoLOG) 100 UNIT/ML VIAL SQ SCH ×4 (10:23→20:11)
[2022-04-10] MEDS: APIXABAN 5 MG TAB PO SCH ×2 (10:23→20:11)
--- NOTE | 2022-04-10 10:25 | P.PN ---
Subjective Progress Note Date: 04/10/22 PROGRESS NOTE The patienti dependings a 76-year-old female with history of paroxysmal atrial ablation, congestive heart failure with preserved systolic function, history of diabetes who presented with cellulitis and atrial fibrillation with rapid ventricle response. She's feeling better today. She denies any symptoms of chest discomfort, she denies any dizziness or palpitations. She continues to be in atrial fibrillation. Her left ventricle systolic function in October was normal with mild mitral and moderate tricuspid regurgitation. Medications: Metoprolol 25 mg twice a day, vancomycin, IV Cardizem,Eliquis 5 mg bid PHYSICAL EXAMINATION: Blood pressure 130/70 heart rate 80 LUNGS: [Clear to auscultation] HEART: [Irregular rate and rhythm, S1, S2. No S3. systolic ejection murmur] ABDOMEN: [Soft, nontender, no organomegaly] EXTREMETIES: [one plus edema with redness] LAB: pending IMPRESSION: 1. Atrial fibrillation, controlled rate, on Eliquis 2. Cellulitis 3. Change in mental status 4. hypertension PLAN: 1. Stop IV cardizem 2. Increase Lopressor 3. restart Bumex 4. Follow renal function Objective - Vital Signs Vital signs: Vital Signs Temp 98.4 F 04/09/22 23:48 Pulse 84 04/09/22 23:48 Resp 18 04/09/22 23:48 BP 130/72 04/09/22 23:48 Pulse Ox 94 L 04/09/22 23:48 FiO2 Intake & Output 04/09/22 04/10/22 04/10/22 18:59 06:59 18:59 Intake Total 32.833 92.167 Output Total 700 Balance -667.167 92.167 Weight 90.718 kg Intake: Intake, IV Titration 32.833 92.167 Amount Diltiazem 125 mg In 32.833 92.167 Sodium Chloride 0.9% 100 ml @ 5 MG/HR 5 mls/hr IV .Q24H [facility] Rx#:[id number] Output: Urine 700 Other: Voiding Method External Catheter # Voids 1 # Bowel Movements 1 - Labs CBC & Chem 7: 04/09/22 08:23 04/08/22 22:20 Labs: Abnormal Lab Results - Last 24 Hours (Table) 04/08/22 04/09/22 04/09/22 Range/Units 22:20 08:23 12:23 POC Glucose (mg/dL) 241 H (70-110) mg/dL Hemoglobin A1c 7.9 H (0.0-6.0) % TSH 0.408 L (0.465-4.680) mIU/L 04/09/22 04/09/22 Range/Units 16:23 20:18 POC Glucose (mg/dL) 270 H 303 H (70-110) mg/dL Hemoglobin A1c (0.0-6.0) % TSH (0.465-4.680) mIU/L Microbiology - Last 24 Hours (Table) 04/08/22 22:09 Blood Culture - Preliminary Blood No Growth after 24 hours 04/08/22 22:20 Blood Culture - Preliminary Blood No Growth after 24 hours 04/09/22 01:37 Urine Culture - Preliminary Urine,Voided
[2022-04-10 11:37] LABS: Glucose,Whole Blood 228 mg/dL (70-110)
[2022-04-10 11:53] LABS: Glucose,Whole Blood 339 mg/dL (70-110)
[2022-04-10] MEDS: ATORVASTATIN 20 MG TAB PO SCH (12:59)
--- NOTE | 2022-04-10 13:09 | P.CONS ---
History of Present Illness - Reason for Consult Consult date: 04/09/22 - History of Present Illness Patient is a 76-year-old female with a past medical history significant for atrial fibrillation diabetes mellitus fibromyalgia hypertension hyperlipidemia history of recurrent urinary tract infection presented to the ER for evaluation of increasing weakness and fever in this patient symptom has been going on for few days before presentation to the hospital patient denies having any headache or URI symptoms patient denies having any chest pain or shortness of breath or cough no nausea vomiting no abdominal pain no diarrhea patient noted to have increasing swelling to bilateral lower extremity with minimal erythema to the right leg and the patient did have a mild pain to the leg 4 to 5-10 no radiation patient presented to the hospital was noted to be febrile with a temperature 100.5 F patient was not hypoxic or need for supplemental oxygen white count of 13 repeat is 17.1 with a left shift patient did have elevated BUN/creatinine liver enzymes are normal urine has been positive COVID testing has been negative blood cultures apparently currently pending chest x-ray mild pulm interstitial edema slightly increased compared to last exam no evidence of any consolidation patient was admitted to hospital infectious was consulted for possible cellulitis and UTI patient is currently being treated with the vancomycin in this patient who did have a multiple patient with multiple antibiotic allergies that would limit the number of antibiotics safe to use Past Medical History Past Medical History: Atrial Fibrillation, Chest Pain / Angina, Dementia, Diabetes Mellitus, Eye Disorder, Fibromyalgia, GERD/Reflux, Hyperlipidemia, Hypertension, Osteoarthritis (OA), Pneumonia, Renal Disease, Rheumatoid Arthritis (RA), Thyroid Disorder Additional Past Medical History / Comment(s): Mild glaucoma stable. BURSITIS, hx falls, past chronic sacral wound, occ Vertigo, anemia, Constipation History of Any Multi-Drug Resistant Organisms: None Reported Past Surgical History: Adenoidectomy, Cholecystectomy, Hysterectomy, Joint Replacement, Orthopedic Surgery, Tonsillectomy Additional Past Surgical History / Comment(s): 3 RIGHT KNEE SURGERIES AND 2 LEFT, TOTAL KNEE REPLACEMENTS SURGERIES. D&C'S. Lap Ignacio-en-Y gastric [place] [address] Zambrano , total hysterectomy for fibroid tumor, tubal ligation Past Anesthesia/Blood Transfusion Reactions: Motion Sickness Additional Past Anesthesia/Blood Transfusion Reaction / Comm: Pt received blood in 2012 without reaction. Past Psychological History: Depression Smoking Status: Never smoker Past Alcohol Use History: None Reported Past Drug Use History: None Reported - Past Family History Mother Family Medical History: Coronary Artery Disease (CAD) Additional Family Medical History / Comment(s): age 90 of heart failure. Had hx of Parkinsons and Narcolepsy Father Family Medical History: Coronary Artery Disease (CAD) Additional Family Medical History / Comment(s): age 73 of massive heart attack Medications and Allergies Home Medications Medication Instructions Recorded Confirmed Type Bumetanide [BUMEX] 1 mg PO BID@0900,1200 10/02/14 04/09/22 History Pantoprazole Sodium 40 mg PO W/BRKFST 10/02/14 04/09/22 History traZODone HCL [Desyrel] 50 mg PO HS 06/06/15 04/09/22 History Gabapentin [Neurontin] 100 mg PO BID@1200,1700 12/16/16 04/09/22 History Apixaban [Eliquis] 5 mg PO BID-W/MEALS 09/27/18 04/09/22 History Pravastatin Sodium [Pravachol] 20 mg PO W/SUPPER 09/27/18 04/09/22 History carvediloL [Coreg] 6.25 mg PO BID-W/MEALS 05/01/19 04/09/22 History HYDROcodone/APAP 5-325MG [[place] 1 tab PO BID@0900,2100 12/31/20 04/09/22 History 5-325] Levothyroxine Sodium [Synthroid] 125 mcg PO DAILY@0800 12/31/20 04/09/22 History Milk Thistle 250mg 250 mg PO BID@1200,1700 12/31/20 04/09/22 History amLODIPine [Norvasc] 5 mg PO BID-W/MEALS 12/31/20 04/09/22 History hydrALAZINE HCL [Apresoline] 10 mg PO BID-W/MEALS 12/31/20 04/09/22 History Aspirin 81 mg PO W/LUNCH 03/15/21 04/09/22 History Cholecalciferol (Vitamin D3) 125 mcg PO HS 03/15/21 04/09/22 History [Vitamin D3 (125 MCG = 5,000 IU)] Cyanocobalamin (Vitamin B-12) 500 mcg PO Q48H 03/15/21 04/09/22 History [Vitamin B-12] Acetaminophen [Tylenol] 500 mg PO TID PRN 06/24/21 04/09/22 History Cinnamon 250mg 250 mg PO BID@0900,1200 06/24/21 04/09/22 History Diclofenac Sodium Gel [Voltaren 2 gm TOPICAL DAILY PRN 06/24/21 04/09/22 History Gel] Insulin Aspart [NovoLOG Flexpen] 12 units SQ AC-TID 06/24/21 04/09/22 History Insulin Detemir [Levemir Flextouch 14 units SQ HS 06/24/21 04/09/22 History Pen] Latanoprost/Pf [Latanoprost 0.005% 1 drop BOTH EYES HS 06/24/21 04/09/22 History Eye Drop] calcitrioL [Rocaltrol] 0.25 mcg PO BHATTI 06/24/21 04/09/22 History Fluticasone Nasal [place] [Flonase 2 spray EA NOSTRIL DAILY PRN 10/29/21 04/09/22 History Nasal [place]] Mupirocin 2% Oint [Bactroban 2% 1 applic TOPICAL TID 10/29/21 04/09/22 History Oint] diphenhydrAMINE HCL [Benadryl] 25 mg PO DAILY PRN 10/29/21 04/09/22 History DULoxetine HCL [Cymbalta] 60 mg PO HS cap 11/03/21 04/09/22 Rx ALPRAZolam [Xanax] 0.25 mg PO DAILY PRN 04/09/22 04/09/22 History Allergies Allergy/AdvReac Type Severity Reaction Status Date / Time adhesive tape Allergy Rash/Hives Verified 04/09/22 10:23 Penicillins Allergy Anaphylaxis Verified 04/09/22 10:23 triamcinolone Allergy Unknown Verified 04/09/22 10:23 venom-honey bee Allergy Swelling Verified 04/09/22 10:23 caffeine AdvReac Nausea & Verified 04/09/22 10:23 Vomiting & Diarrhea hydrocodone bitartrate AdvReac Itching Verified 04/09/22 10:23 [From Lorcet (hydrocodone)] tramadol HCl [From Ultram] AdvReac Itching Verified 04/09/22 10:23 Physical Exam Vitals: Vital Signs Temp Pulse Resp BP Pulse Ox 04/09/22 13:00 123 H 16 121/82 98 04/09/22 12:30 98 16 123/82 94 L 04/09/22 12:00 121 H 18 113/76 93 L 04/09/22 11:30 111 H 20 106/80 94 L 04/09/22 11:00 128 H 17 121/75 04/09/22 10:30 149 H 15 111/81 93 L 04/09/22 10:00 98.5 F 133 H 17 124/74 93 L 04/09/22 09:20 141 H 17 133/77 92 L 04/09/22 09:00 129 H 15 118/77 96 04/09/22 08:10 166 H 20 139/85 97 04/09/22 08:00 146 H 20 152/94 04/09/22 06:40 99.0 F 04/09/22 05:00 76 16 140/76 98 04/09/22 04:00 73 16 131/68 98 04/09/22 03:00 73 16 112/61 99 04/09/22 02:00 78 16 116/64 99 04/09/22 01:00 77 16 112/59 98 04/09/22 00:00 80 16 114/61 99 04/08/22 23:00 99 16 121/85 99 04/08/22 22:03 100.5 F H 83 20 146/70 97 Intake and Output 04/08/22 04/09/22 04/09/22 22:59 06:59 14:59 Intake Total 32.833 Balance 32.833 Intake: Intake, IV Titration 32.833 Amount Diltiazem 125 mg In 32.833 Sodium Chloride 0.9% 100 ml @ 5 MG/HR 5 mls/hr IV .Q24H [facility] Rx#:[id number] Other: Weight 90.718 kg Results CBC & Chem 7: 04/09/22 08:23 04/08/22 22:20 Labs: Abnormal Lab Results - Last 24 Hours (Table) 04/08/22 04/08/22 04/08/22 Range/Units 22:20 22:20 22:20 WBC 13.0 H (3.8-10.6) k/uL RBC 3.56 L (3.80-5.40) m/uL Hgb 11.2 L (11.4-16.0) gm/dL Hct 33.5 L (34.0-46.0) % Neutrophils # 10.7 H (1.3-7.7) k/uL Lymphocytes # 0.8 L (1.0-4.8) k/uL Monocytes # 1.2 H (0-1.0) k/uL APTT 31.0 H (22.0-30.0) sec Sodium 133 L (137-145) mmol/L Chloride 97 L (98-107) mmol/L BUN 41 H (7-17) mg/dL Creatinine 1.22 H (0.52-1.04) mg/dL Glucose 147 H (74-99) mg/dL POC Glucose (mg/dL) (70-110) mg/dL TSH (0.465-4.680) mIU/L Urine Protein (Negative) Urine Ketones (Negative) Urine Blood (Negative) Urine Nitrite (Negative) Ur Leukocyte Esterase (Negative) Urine RBC (0-5) /hpf Urine WBC (0-5) /hpf Urine WBC Clumps (None) /hpf Urine Bacteria (None) /hpf 04/08/22 04/09/22 04/09/22 Range/Units 22:20 01:37 08:23 WBC 17.1 H (3.8-10.6) k/uL RBC 3.72 L (3.80-5.40) m/uL Hgb (11.4-16.0) gm/dL Hct (34.0-46.0) % Neutrophils # 15.6 H (1.3-7.7) k/uL Lymphocytes # 0.4 L (1.0-4.8) k/uL Monocytes # (0-1.0) k/uL APTT (22.0-30.0) sec Sodium (137-145) mmol/L Chloride (98-107) mmol/L BUN (7-17) mg/dL Creatinine (0.52-1.04) mg/dL Glucose (74-99) mg/dL POC Glucose (mg/dL) (70-110) mg/dL TSH 0.408 L (0.465-4.680) mIU/L Urine Protein 1+ H (Negative) Urine Ketones Trace H (Negative) Urine Blood Moderate H (Negative) Urine Nitrite Positive H (Negative) Ur Leukocyte Esterase Large H (Negative) Urine RBC 16 H (0-5) /hpf Urine WBC 27 H (0-5) /hpf Urine WBC Clumps Rare H (None) /hpf Urine Bacteria Many H (None) /hpf 04/09/22 Range/Units 12:23 WBC (3.8-10.6) k/uL RBC (3.80-5.40) m/uL Hgb (11.4-16.0) gm/dL Hct (34.0-46.0) % Neutrophils # (1.3-7.7) k/uL Lymphocytes # (1.0-4.8) k/uL Monocytes # (0-1.0) k/uL APTT (22.0-30.0) sec Sodium (137-145) mmol/L Chloride (98-107) mmol/L BUN (7-17) mg/dL Creatinine (0.52-1.04) mg/dL Glucose (74-99) mg/dL POC Glucose (mg/dL) 241 H (70-110) mg/dL TSH (0.465-4.680) mIU/L Urine Protein (Negative) Urine Ketones (Negative) Urine Blood (Negative) Urine Nitrite (Negative) Ur Leukocyte Esterase (Negative) Urine RBC (0-5) /hpf Urine WBC (0-5) /hpf Urine WBC Clumps (None) /hpf Urine Bacteria (None) /hpf Microbiology - Last 24 Hours (Table) 04/09/22 01:37 Urine Culture - Preliminary Urine,Voided Assessment and Plan Plan: 1patient was at hospital with increasing weakness and the patient also have a low-grade fever concerning for possible UTI patient also noticed to have increasing swelling to the lower extremities patient's right leg and possible component of cellulitis. 2antibiotic allergies that would limit the number of antibiotics safe to use. 3vancomycin pharmacy to dose target trough of 15 while watching kidney function and vancomycin trough closely however and Rocephin while waiting for the culture to finalize. We will follow on clinical condition and cultures to further adjust medication if needed Thank you for this consultation will follow this patient along with you Time with Patient: Greater than 30
[2022-04-10 14:09] LABS: Basophils % (A) 0 %; Eosinophils # (A) 0.1 k/uL (0-0.7); Eosinophils % (A) 1 %; HCT 35.2 % (34.0-46.0); HGB 11.1 gm/dL (11.4-16.0); Hypochromasia Slight; Lymphocytes # (A) 0.5 k/uL (1.0-4.8); Lymphocytes % (A) 6 %; MCH 30.2 pg (25.0-35.0); MCHC 31.4 g/dL (31.0-37.0); MCV 96.2 fL (80.0-100.0); Mean Platelet Volume 8.7; Monocytes # (A) 0.5 k/uL (0-1.0); Monocytes % (A) 5 %; Neutrophils # (A) 7.3 k/uL (1.3-7.7); Neutrophils % (A) 85 %; Platelet Count 264 k/uL (150-450); RBC 3.66 m/uL (3.80-5.40); RDW 13.8 % (11.5-15.5); WBC 8.6 k/uL (3.8-10.6)
[2022-04-10 14:21] LABS: Albumin 3.3 g/dL (3.5-5.0); Potassium 3.4 mmol/L (3.5-5.1); Total Bilirubin 0.4 mg/dL (0.2-1.3); Total Protein 6.1 g/dL (6.3-8.2)
[2022-04-10] MEDS: ACETAMINOPHEN TAB 325 MG TAB PO PRN (15:00)
[2022-04-10 16:45] LABS: Glucose,Whole Blood 282 mg/dL (70-110)
[2022-04-10] MEDS: FUROSEMIDE 40 MG TAB PO SCH (17:34)
[2022-04-10 19:47] LABS: Glucose,Whole Blood 294 mg/dL (70-110)
[2022-04-10] MEDS: LEVOFLOXACIN 250MG-D5W PMX 250 MG in DEXTROSE/WATER 1 50ML.BAG IVPB SCH (20:11)
[2022-04-10] MEDS: METOPROLOL TARTRATE 50 MG TAB PO SCH (20:11)
--- NOTE | 2022-04-10 22:08 | P.PN ---
Subjective Progress Note Date: 04/10/22 Principal diagnosis: Cellulitis and UTI Patient is a 76-year female with multiple comorbidities including recurrent urine tract infection presented to the hospital generalized weakness patient did have a low-grade fever positive UA concerning for UTI some swelling to lower extremity and possible cellulitis. On today's evaluation that is 04/10/2021: The patient is afebrile patient is currently breathing comfortably on room air denies any chest pain or shortness of breath occasional cough no abdominal pain did have some lower extremity but no significant pain no open wound or any drainage. Objective - Vital Signs Vital signs: Vital Signs Temp 98.2 F 04/10/22 08:00 Pulse 80 04/10/22 08:00 Resp 18 04/10/22 08:00 BP 130/84 04/10/22 08:00 Pulse Ox 94 L 04/10/22 08:00 FiO2 Intake & Output 04/09/22 04/10/22 04/10/22 18:59 06:59 18:59 Intake Total 32.833 92.167 Output Total 700 Balance -667.167 92.167 Weight 90.718 kg Intake: Intake, IV Titration 32.833 92.167 Amount Diltiazem 125 mg In 32.833 92.167 Sodium Chloride 0.9% 100 ml @ 5 MG/HR 5 mls/hr IV .Q24H [facility] Rx#:[id number] Output: Urine 700 Other: Voiding Method External Catheter External Catheter # Voids 1 # Bowel Movements 1 - Exam GENERAL DESCRIPTION: Elderly female lying in bed, no distress. No tachypnea or accessory muscle of respiration use. LUNGS: Unlabored breathing. Decreased breath sound at the base HEART: S1, S2, regular rate and rhythm. No loud murmur ABDOMEN: Soft, no tenderness , guarding or rigidity, no organomegaly EXTREMITIES: Diffuse swelling to bilateral lower extremity minimal redness no drainage. - Labs CBC & Chem 7: 04/10/22 13:38 04/10/22 13:38 Labs: Abnormal Lab Results - Last 24 Hours (Table) 04/09/22 04/09/22 04/09/22 Range/Units 08:23 16:23 20:18 POC Glucose (mg/dL) 270 H 303 H (70-110) mg/dL Hemoglobin A1c 7.9 H (0.0-6.0) % 04/10/22 04/10/22 Range/Units 06:14 11:52 POC Glucose (mg/dL) 228 H 339 H (70-110) mg/dL Hemoglobin A1c (0.0-6.0) % Microbiology - Last 24 Hours (Table) 04/08/22 22:09 Blood Culture - Preliminary Blood No Growth after 24 hours 04/08/22 22:20 Blood Culture - Preliminary Blood No Growth after 24 hours 04/09/22 01:37 Urine Culture - Preliminary Urine,Voided Assessment and Plan (1) Cellulitis Current Visit: Yes Status: Acute Code(s): L03.90 - CELLULITIS, UNSPECIFIED SNOMED Code(s): 120599930 (2) UTI (lower urinary tract infection) Current Visit: No Status: Acute Code(s): N39.0 - URINARY TRACT INFECTION, SITE NOT SPECIFIED SNOMED Code(s): 3727019 Plan: 1patient was at hospital with increasing weakness and the patient also have a low-grade fever concerning for possible UTI patient also noticed to have increasing swelling to the lower extremities patient's right leg and possible component of cellulitis. 2antibiotic allergies that wILL limit the number of antibiotics safe to use. 3Patient has shown some clinical improvement the patient white count has normalized and fever has resolved cultures are currently pending patient to continue with the vancomycin and Rocephin we will monitor clinical course closely. Family at the bedside question were answered Time with Patient: Less than 30
[2022-04-10] MEDS: VANCOMYCIN 1,500 MG in SODIUM CHLORIDE 0.9% 500 ML 500 ML IVPB SCH (22:49)
[2022-04-11 06:30] LABS: Glucose,Whole Blood 267 mg/dL (70-110)
[2022-04-11] MEDS: INSULIN ASPART (NovoLOG) 100 UNIT/ML VIAL SQ SCH ×3 (06:51→17:33)
[2022-04-11] MEDS: METOPROLOL TARTRATE 50 MG TAB PO SCH (09:23)
[2022-04-11] MEDS: FUROSEMIDE 40 MG TAB PO SCH ×2 (09:23→17:34)
[2022-04-11] MEDS: ATORVASTATIN 20 MG TAB PO SCH (09:23)
[2022-04-11] MEDS: APIXABAN 5 MG TAB PO SCH (09:23)
[2022-04-11] MEDS ORDERED: ALPRAZolam 0.25 MG TAB PO PRN (09:43)
--- NOTE | 2022-04-11 10:47 | P.PN ---
Subjective Progress Note Date: 04/11/22 This is a 76-year-old female patient. Patient is a poor historian no family at bedside history is obtained from ER record. According to your records patient presented with concerns of fever and weakness. Patient does have past medical history of atrial fibrillation, chest pain, diabetes mellitus, fibromyalgia, GERD, hyperlipidemia, hypertension, osteoarthritis, rheumatoid arthritis and depression. Chest x-ray completed showing mild pulmonary interstitial edema which is slightly increased compared to last exam heart failure is possible no definitive pleural fluid seen. Lower extremities are noted to have erythema and +1 edematous. UA positive for urinary tract infection. White blood cell alberto vated at 17.1. Elevated temp 100.5. Upon arrival to the ER patient went into A. fib with RVR. Cardizem drip started and cardiology services have been consulted this time patient will be admitted. Patient started on IV vancomycin. Infectious disease and cardiology services consulted. Urine blood and sputum cultures ordered. At this time patient is resting comfortably in bed. Patient does wake up and follow commands. Patient denies chest pain or shortness of breath. Patient denies nausea vomiting or diarrhea. Patient denies any urinary burning or frequency On 04/11/2022 patient is alert and oriented 3. is at bedside. Cardiology adjusting medication. Heart rate slightly improved. Patient remains on IV Rocephin. Patient expresses that she is eager to be discharged home. Explained patient and that we are waiting for cardiology and infectious disease clearance prior to discharge. At this time urine and blood cultures negative. Patient denies chest pain or shortness of breath. Patient denies nausea vomiting or diarrhea. Patient denies any urinary burning or frequency Objective - Vital Signs Vital signs: Vital Signs Temp 98.2 F 04/10/22 20:00 Pulse 120 H 04/11/22 04:00 Resp 18 04/11/22 04:00 BP 137/97 04/11/22 04:00 Pulse Ox 95 04/11/22 04:00 FiO2 Intake & Output 04/10/22 04/11/22 04/11/22 19:59 06:59 18:59 Intake Total Balance Intake: Intake, IV Titration Amount Levofloxacin 250Mg-D5w Pmx 250 mg In Dextrose/ Water 1 50ml.bag @ 50 mls /hr IVPB Q24H [facility] Rx#: [id number] Vancomycin 1,500 mg In Sodium Chloride 0.9% 500 ml 500 ml @ 167 mls/hr IVPB Q24H [facility] Rx#: [id number] Oral Other: Voiding Method # Voids # Bowel Movements - Labs CBC & Chem 7: 04/10/22 13:38 04/10/22 13:38 Labs: Abnormal Lab Results - Last 24 Hours (Table) 04/10/22 04/10/22 04/10/22 Range/Units 11:52 13:38 13:38 RBC 3.66 L (3.80-5.40) m/uL Hgb 11.1 L (11.4-16.0) gm/dL Lymphocytes # 0.5 L (1.0-4.8) k/uL Sodium 135 L (137-145) mmol/L Potassium 3.4 L (3.5-5.1) mmol/L BUN 30 H (7-17) mg/dL Glucose 388 H (74-99) mg/dL POC Glucose (mg/dL) 339 H (70-110) mg/dL Total Protein 6.1 L (6.3-8.2) g/dL Albumin 3.3 L (3.5-5.0) g/dL 04/10/22 04/10/22 04/11/22 Range/Units 16:44 19:46 06:28 RBC (3.80-5.40) m/uL Hgb (11.4-16.0) gm/dL Lymphocytes # (1.0-4.8) k/uL Sodium (137-145) mmol/L Potassium (3.5-5.1) mmol/L BUN (7-17) mg/dL Glucose (74-99) mg/dL POC Glucose (mg/dL) 282 H 294 H 267 H (70-110) mg/dL Total Protein (6.3-8.2) g/dL Albumin (3.5-5.0) g/dL Microbiology - Last 24 Hours (Table) 04/08/22 22:20 Blood Culture - Preliminary Blood No Growth after 48 hours 04/08/22 22:09 Blood Culture - Preliminary Blood No Growth after 48 hours 04/09/22 01:37 Urine Culture - Final Urine,Voided Assessment and Plan Assessment: 1. Fever likely secondary to UTI and lower extremity cellulitis 2. Urinary tract infection. Urine culture ordered 2. Bilateral lower extremity cellulitis 3. Atrial fibrillation with rapid ventricular response. 4. History of essential hypertension 5. History of hypothyroidism 6. History of insulin-dependent diabetes mellitus 7. History of osteoarthritis 8. Chronic diastolic heart failure 9. Chronic kidney disease stage III 10. History of paroxysmal atrial fibrillation maintained on eliquis At this time patient will be admitted Cardiology and infectious disease services consulted Medications adjusted per cardiology Sabiha hopkins DC'd Patient remains on IV antibiotics
--- NOTE | 2022-04-11 11:22 | P.PN ---
Subjective Progress Note Date: 04/11/22 PROGRESS NOTE The patient is a 76-year-old female with history of paroxysmal atrial fibrillation, congestive heart failure with preserved systolic function, history of diabetes who presented with cellulitis and atrial fibrillation with rapid ventricle response. She's feeling better today. She denies any symptoms of chest discomfort, she denies any dizziness or palpitations. She continues to be in atrial fibrillation. Her left ventricle systolic function in October was normal with mild mitral and moderate tricuspid regurgitation. April 11: She is feeling better today, ambulating, anxious to go home. She denies any chest discomfort, dizziness or palpitations. Her atrial fibrillation is under good control. She has no nausea or vomiting. She is ambulating. Medications: Metoprolol 25 mg twice a day, vancomycin, IV Cardizem,Eliquis 5 mg bid PHYSICAL EXAMINATION: Blood pressure 130/70 heart rate 80 LUNGS: Clear to auscultation HEART: Irregular rate and rhythm, S1, S2. No S3. systolic ejection murmur ABDOMEN: Soft, nontender, no organomegaly EXTREMETIES: Trace edema with redness LAB: On April 10 BUN 30, creatinine 0.97, potassium 3.4 pending IMPRESSION: 1. Atrial fibrillation, controlled rate, on Eliquis 2. Cellulitis 3. Change in mental status 4. hypertension PLAN: 1. Continue present therapy 2. Probable discharge home today on present treatment. Objective - Vital Signs Vital signs: Vital Signs Temp 98.2 F 04/10/22 20:00 Pulse 120 H 04/11/22 04:00 Resp 18 04/11/22 04:00 BP 137/97 04/11/22 04:00 Pulse Ox 95 04/11/22 04:00 FiO2 Intake & Output 04/10/22 04/11/22 04/11/22 19:59 06:59 18:59 Intake Total Balance Intake: Intake, IV Titration Amount Levofloxacin 250Mg-D5w Pmx 250 mg In Dextrose/ Water 1 50ml.bag @ 50 mls /hr IVPB Q24H [facility] Rx#: [id number] Vancomycin 1,500 mg In Sodium Chloride 0.9% 500 ml 500 ml @ 167 mls/hr IVPB Q24H [facility] Rx#: [id number] Oral Other: Voiding Method # Voids # Bowel Movements - Labs CBC & Chem 7: 04/10/22 13:38 04/10/22 13:38 Labs: Abnormal Lab Results - Last 24 Hours (Table) 04/10/22 04/10/22 04/10/22 Range/Units 13:38 13:38 16:44 RBC 3.66 L (3.80-5.40) m/uL Hgb 11.1 L (11.4-16.0) gm/dL Lymphocytes # 0.5 L (1.0-4.8) k/uL Sodium 135 L (137-145) mmol/L Potassium 3.4 L (3.5-5.1) mmol/L BUN 30 H (7-17) mg/dL Glucose 388 H (74-99) mg/dL POC Glucose (mg/dL) 282 H (70-110) mg/dL Total Protein 6.1 L (6.3-8.2) g/dL Albumin 3.3 L (3.5-5.0) g/dL 04/10/22 04/11/22 Range/Units 19:46 06:28 RBC (3.80-5.40) m/uL Hgb (11.4-16.0) gm/dL Lymphocytes # (1.0-4.8) k/uL Sodium (137-145) mmol/L Potassium (3.5-5.1) mmol/L BUN (7-17) mg/dL Glucose (74-99) mg/dL POC Glucose (mg/dL) 294 H 267 H (70-110) mg/dL Total Protein (6.3-8.2) g/dL Albumin (3.5-5.0) g/dL Microbiology - Last 24 Hours (Table) 04/08/22 22:20 Blood Culture - Preliminary Blood No Growth after 48 hours 04/08/22 22:09 Blood Culture - Preliminary Blood No Growth after 48 hours 04/09/22 01:37 Urine Culture - Final Urine,Voided
[2022-04-11 11:28] VITALS: TEMP 98.6
[2022-04-11 11:35] LABS: Glucose,Whole Blood 295 mg/dL (70-110)
[2022-04-11 12:12] LABS: ALT 24 U/L (4-34); AST 33 U/L (14-36); African American GFR (CKD) >90 (>60 ml/min/1.73 sqM); Albumin 3.5 g/dL (3.5-5.0); Alkaline Phosphatase 112 U/L (38-126); Anion Gap 10 mmol/L; Blood Urea Nitrogen 18 mg/dL (7-17); Calcium 9.2 mg/dL (8.4-10.2); Carbon Dioxide 24 mmol/L (22-30); Chloride 102 mmol/L (98-107); Glucose 287 mg/dL (74-99); HCT 35.9 % (34.0-46.0); HGB 11.6 gm/dL (11.4-16.0); Hypochromasia Slight; MCH 30.7 pg (25.0-35.0); MCHC 32.4 g/dL (31.0-37.0); MCV 94.7 fL (80.0-100.0); Mean Platelet Volume 10.1; Non-African American GFR(CKD) 81 (>60 ml/min/1.73 sqM); Platelet Count 265 k/uL (150-450); Potassium 3.6 mmol/L (3.5-5.1); RDW 13.7 % (11.5-15.5); Sodium 136 mmol/L (137-145); Total Bilirubin 0.4 mg/dL (0.2-1.3); Total Protein 6.4 g/dL (6.3-8.2); WBC 8.6 k/uL (3.8-10.6)
[2022-04-11 12:20] LABS: Eosinophils # (M) 0.34 k/uL (0-0.7); Lymphocytes # (M) 0.77 k/uL (1.0-4.8); Monocytes # (M) 0.69 k/uL (0-1.0); Neutrophils # (M) 6.79 k/uL (1.3-7.7); Neutrophils % (M) 79 %; Nucleated Red Blood Cells 0 /100 WBC (0-0); Total Cells Counted 100
[2022-04-11 16:50] LABS: Glucose,Whole Blood 231 mg/dL (70-110)
[2022-04-11 17:59] VITALS: BP 151/84; PULSE 112
[2022-04-11] MEDS ORDERED: INSULIN DETEMIR (LEVEMIR) 100 UNIT/ML SYR SQ SCH (21:00)
[2022-04-11] MEDS ORDERED: CHOLECALCIFEROL 125 MCG (5000 IU) TABLET PO SCH (21:00)
[2022-04-11] MEDS ORDERED: traZODone HCL 50 MG TAB PO SCH (21:00)
[2022-04-11] MEDS ORDERED: LATANOPROST 0.005% OPHTH DROPS 2.5 ML BTL BOTH EYES SCH (21:00)
[2022-04-11] MEDS ORDERED: HYDROcodone/APAP 5-325MG 1 EACH TAB PO SCH (21:00)
[2022-04-12] MEDS ORDERED: LEVOTHYROXINE 125 MCG TAB PO SCH (06:30)
[2022-04-12] MEDS ORDERED: PANTOPRAZOLE 40 MG TABLET PO SCH (07:30)
--- NOTE | 2022-04-14 09:35 | P.DS ---
Providers Date of admission: 04/09/22 00:20 Expected date of discharge: 04/11/22 Attending physician: Taina Vergara Consults: 04/09/22 07:57 Consult Physician Urgent Consulting Provider: Eli Kebede Consult Reason/Comments: New onset afib Do you want consulting provider notified?: Yes 04/09/22 09:06 Consult Physician Routine Consulting Provider: Ajay Mead Consult Reason/Comments: fever cellulits, uti Do you want consulting provider notified?: Yes [facility] care [facility]: [facility] Course: Discharge diagnosis 1. Fever likely secondary to UTI and lower extremity cellulitis 2. Urinary tract infection. Urine culture ordered 2. Bilateral lower extremity cellulitis 3. Atrial fibrillation with rapid ventricular response. 4. History of essential hypertension 5. History of hypothyroidism 6. History of insulin-dependent diabetes mellitus 7. History of osteoarthritis 8. Chronic diastolic heart failure 9. Chronic kidney disease stage III 10. History of paroxysmal atrial fibrillation maintained on [facility] course This is a 76-year-old female patient. Patient is a poor historian no family at bedside history is obtained from ER record. According to your records patient presented with concerns of fever and weakness. Patient does have past medical history of atrial fibrillation, chest pain, diabetes mellitus, fibromyalgia, GERD, hyperlipidemia, hypertension, osteoarthritis, rheumatoid arthritis and depression. Chest x-ray completed showing mild pulmonary interstitial edema which is slightly increased compared to last exam heart failure is possible no definitive pleural fluid seen. Lower extremities are noted to have erythema and +1 edematous. UA positive for urinary tract infection. White blood cell elevated at 17.1. Elevated temp 100.5. Upon arrival to the ER patient went into A. fib with RVR. Cardizem drip started and cardiology services have been consulted this time patient will be admitted. Patient started on IV vancomycin. Infectious disease and cardiology services consulted. Urine blood and sputum cultures ordered. At this time patient is resting comfortably in bed. Patient does wake up and follow commands. Patient denies chest pain or shortness of breath. Patient denies nausea vomiting or diarrhea. Patient denies any urinary burning or frequency On 04/11/2022 patient is alert and oriented 3. is at bedside. Cardiology adjusting medication. Heart rate slightly improved. Patient remains on IV Rocephin. Patient expresses that she is eager to be discharged home. Explained patient and that we are waiting for cardiology and infectious disease clearance prior to discharge. At this time urine and blood cultures negative. Patient denies chest pain or shortness of breath. Patient denies nausea vomiting or diarrhea. Patient denies any urinary burning or frequency Patient cleared for discharge from cardiology standpoint patient will be DC'd on cefuroxime. Patient also started on Lopressor. Patient to follow-up with PCP and consulting providers for further management Patient Condition at Discharge: Stable Plan - Discharge Summary Discharge Rx Participant: No New Discharge Prescriptions: New Metoprolol Tartrate [Lopressor] 50 mg PO BID tab cefUROXime axetiL [Cefuroxime] 500 mg PO BID 10 Days #20 tab Continue Bumetanide [BUMEX] 1 mg PO BID@0900,1200 Pantoprazole Sodium 40 mg PO W/BRKFST traZODone HCL [Desyrel] 50 mg PO HS Gabapentin [Neurontin] 100 mg PO BID@1200,1700 Apixaban [Eliquis] 5 mg PO BID-W/MEALS Pravastatin Sodium [Pravachol] 20 mg PO W/SUPPER HYDROcodone/APAP 5-325MG [Randle 5-325] 1 tab PO BID@0900,2100 Milk Thistle 250mg 250 mg PO BID@1200,1700 Aspirin 81 mg PO W/LUNCH Latanoprost/Pf [Latanoprost 0.005% Eye Drop] 1 drop BOTH EYES HS Insulin Aspart [NovoLOG Flexpen] 12 units SQ AC-TID Acetaminophen [Tylenol] 500 mg PO TID PRN PRN Reason: Pain Cinnamon 250mg 250 mg PO BID@0900,1200 Fluticasone Nasal [place] [Flonase Nasal [place]] 2 spray EA NOSTRIL DAILY PRN PRN Reason: Allergy Symptoms DULoxetine HCL [Cymbalta] 60 mg PO HS cap Levothyroxine Sodium [Synthroid] 125 mcg PO DAILY@0800 Cholecalciferol (Vitamin D3) [Vitamin D3 (125 MCG = 5,000 IU)] 125 mcg PO HS Cyanocobalamin (Vitamin B-12) [Vitamin B-12] 500 mcg PO Q48H Insulin Detemir [Levemir Flextouch Pen] 14 units SQ HS calcitrioL [Rocaltrol] 0.25 mcg PO BHATTI Diclofenac Sodium Gel [Voltaren Gel] 2 gm TOPICAL DAILY PRN PRN Reason: Pain diphenhydrAMINE HCL [Benadryl] 25 mg PO DAILY PRN PRN Reason: Allergy Symptoms Mupirocin 2% Oint [Bactroban 2% Oint] 1 applic TOPICAL TID ALPRAZolam [Xanax] 0.25 mg PO DAILY PRN PRN Reason: Anxiety Discontinued carvediloL [Coreg] 6.25 mg PO BID-W/MEALS amLODIPine [Norvasc] 5 mg PO BID-W/MEALS hydrALAZINE HCL [Apresoline] 10 mg PO BID-W/MEALS Discharge Medication List Bumetanide [BUMEX] 1 mg PO BID@0900,1200 10/02/14 [History] Pantoprazole Sodium 40 mg PO W/BRKFST 10/02/14 [History] traZODone HCL [Desyrel] 50 mg PO HS 06/06/15 [History] Gabapentin [Neurontin] 100 mg PO BID@1200,1700 12/16/16 [History] Apixaban [Eliquis] 5 mg PO BID-W/MEALS 09/27/18 [History] Pravastatin Sodium [Pravachol] 20 mg PO W/SUPPER 09/27/18 [History] HYDROcodone/APAP 5-325MG [Randle 5-325] 1 tab PO BID@0900,2100 12/31/20 [History] Levothyroxine Sodium [Synthroid] 125 mcg PO DAILY@0800 12/31/20 [History] Milk Thistle 250mg 250 mg PO BID@1200,1700 12/31/20 [History] Aspirin 81 mg PO W/LUNCH 03/15/21 [History] Cholecalciferol (Vitamin D3) [Vitamin D3 (125 MCG = 5,000 IU)] 125 mcg PO HS 03/15/21 [History] Cyanocobalamin (Vitamin B-12) [Vitamin B-12] 500 mcg PO Q48H 03/15/21 [History] Acetaminophen [Tylenol] 500 mg PO TID PRN 06/24/21 [History] Cinnamon 250mg 250 mg PO BID@0900,1200 06/24/21 [History] Diclofenac Sodium Gel [Voltaren Gel] 2 gm TOPICAL DAILY PRN 06/24/21 [History] Insulin Aspart [NovoLOG Flexpen] 12 units SQ AC-TID 06/24/21 [History] Insulin Detemir [Levemir Flextouch Pen] 14 units SQ HS 06/24/21 [History] Latanoprost/Pf [Latanoprost 0.005% Eye Drop] 1 drop BOTH EYES HS 06/24/21 [Histo ry] calcitrioL [Rocaltrol] 0.25 mcg PO BHATTI 06/24/21 [History] Fluticasone Nasal [place] [Flonase Nasal [place]] 2 spray EA NOSTRIL DAILY PRN 10/29/21 [History] Mupirocin 2% Oint [Bactroban 2% Oint] 1 applic TOPICAL TID 10/29/21 [History] diphenhydrAMINE HCL [Benadryl] 25 mg PO DAILY PRN 10/29/21 [History] DULoxetine HCL [Cymbalta] 60 mg PO HS cap 11/03/21 [Rx] ALPRAZolam [Xanax] 0.25 mg PO DAILY PRN 04/09/22 [History] Metoprolol Tartrate [Lopressor] 50 mg PO BID tab 04/11/22 [Rx] cefUROXime axetiL [Cefuroxime] 500 mg PO BID 10 Days #20 tab 04/11/22 [Rx] Follow up Appointment(s)/Referral(s): Taina Vergara MD [Primary Care Provider] - 1-2 days (Discuss with Dr Vergara if you need Dr Kebede (cardiology) follow up.) Patient Instructions/Handouts: A-fib (Atrial Fibrillation) (DC), Urinary Tract Infection in Women (DC), Cellulitis (GEN) Discharge Disposition: HOME SELF-CARE
--- NOTE | 2022-04-14 11:09 | CDI ---
Documentation Clarification Form Date: 04/14/22 From: Kitty Britt Admit Date: 04/09/2022 12:20:00 AM Patient Name: Mirian Briceno Visit Number: [id number] Discharge Date: 04/11/2022 06:36:00 PM ATTENTION: The Clinical Documentation Specialists (CDI) and [facility] Coding Staff appreciate your assistance in clarifying documentation. Please respond to the clarification below the line at the bottom and electronically sign. The CDI & [facility] Coding staff will review the response and follow-up if needed. Please note: Queries are made part of the Legal Health Record. If you have any questions, please contact the author of this message via ITS. Dr. Taina Vergara, UTI is documented in the H&P, PN and DS which may lack sufficient clinical evidence/support in the medical record. Additional clarification is requested. History/Risk Factors: HX of UTI's, dementia, HTN w CKD w chronic diastolic CHF, T2DM w CKD, PAF, bilateral cellulitis of lower limbs, RA Clinical Indicators: UA positive foe UTI. Fever of 100.5 Vital Signs: T 100.5, P 83, R 20, BP 146/70, O2 97 (RA) WBC: 13.0 Urinalysis: Protein 1+, Ketones Trace, Nitrite +, Leukocyte Esterase large, WBC 16, Bacteria many Urine Culture: No growth after 18 HRs Treatment: IV Vancomycin, IV Levofoxacin, IV Rocephin, dc'd on Cefuroxime 500 mg PO BID Please clarify if UIT is a valid diagnosis? [ xxx ] Yes, UTI is present as evidence by (additional clinical support): Urinalysis on 04/09/2022 positive for nitrite and leukocyte esterase, although culture was negative, culture was done after starting antibiotics____ [ ] No, UTI is ruled out [ ] Other (please specify diagnosis) [ ] Unable to determine MTDD
== END 2022-04-11 18:36 | disposition home or self-care (01) | DRG 603 ==
LOC: EC 21:57 → 4SSUR 04-09 00:20 → 3SCARD 04-09 08:01
PROVIDERS: ADMIT Internal Medicine; ATTEND Internal Medicine
DX: L03.116 Cellulitis of left lower limb (principal); L03.115 Cellulitis of right lower limb; F03.93 Unspecified dementia, unspecified severity, with mood disturbance; I13.0 Hypertensive heart and chronic kidney disease with heart failure and stage 1 through stage 4 chronic kidney disease, or unspecified chronic kidney disease; I50.32 Chronic diastolic (congestive) heart failure; N39.0 Urinary tract infection, site not specified; E11.22 Type 2 diabetes mellitus with diabetic chronic kidney disease; I48.0 Paroxysmal atrial fibrillation; N18.30 Chronic kidney disease, stage 3 unspecified; M06.9 Rheumatoid arthritis, unspecified; Z79.4 Long term (current) use of insulin; Z20.822 Contact with and (suspected) exposure to COVID-19; E03.9 Hypothyroidism, unspecified; M79.7 Fibromyalgia; I08.1 Rheumatic disorders of both mitral and tricuspid valves; K21.9 Gastro-esophageal reflux disease without esophagitis; E78.5 Hyperlipidemia, unspecified; H40.9 Unspecified glaucoma; K59.00 Constipation, unspecified; M19.90 Unspecified osteoarthritis, unspecified site; Z79.01 Long term (current) use of anticoagulants; Z79.82 Long term (current) use of aspirin; Z79.890 Hormone replacement therapy; Z79.899 Other long term (current) drug therapy; Z87.440 Personal history of urinary (tract) infections; Z98.84 Bariatric surgery status; Z88.0 Allergy status to penicillin; Z91.030 Bee allergy status; Z91.02 Food additives allergy status; Z88.5 Allergy status to narcotic agent; Z91.048 Other nonmedicinal substance allergy status
CPT/HCPCS: 36415; 71046; 80053; 81001; 83036; 83605; 83735; 84439; 84443; 84484; 85025; 85610; 85730; 87040; 87086; 87502; 87635; 93005; 96361; 96365; 96366; 96367; 96376; 99285

== ENCOUNTER → 2022-04-30 | Outpatient (CLI) | payer MEDICARE, BC | END | disposition home or self-care (01) | LOC: RADMAMWWP 10:29 | PROVIDERS: ATTEND Internal Medicine | DX: Z53.9 Procedure and treatment not carried out, unspecified reason (principal) ==

== ENCOUNTER 2022-05-12 19:27 | Inpatient (IN) | payer MEDICARE, BC ==
--- NOTE | 2022-05-12 19:43 | ED ---
General Adult HPI - General Chief complaint: Fall Stated complaint: Fall Time Seen by Provider: 05/12/22 19:30 Source: patient, RN notes reviewed, old records reviewed Mode of arrival: EMS Limitations: physical limitation - History of Present Illness Initial comments: This is a 76-year-old female presents emergency department after having fallen. Patient states she lost her balance when she got up and was transferring from one chair to another. Patient states she fell backwards and hit the stereo cabinet. Patient states he hit the occipital region of her skull. Patient states he did not lose consciousness she's not days she does however complain of a headache. Patient denies any neck pain. Patient denies numbness or weakness. Patient denies any back pain or chest pain. Patient denies difficulty breathing shortness of breath. Patient denies any recent fever chills or cough. Patient denies any recent nausea vomiting. states she's been home for approximately a month she was in the hospital being treated for urinary tract in [facility]. - Related Data Home Medications Medication Instructions Recorded Confirmed Bumetanide [BUMEX] 1 mg PO BID@0900,1200 10/02/14 04/09/22 Pantoprazole Sodium 40 mg PO W/BRKFST 10/02/14 04/09/22 traZODone HCL [Desyrel] 50 mg PO HS 06/06/15 04/09/22 Gabapentin [Neurontin] 100 mg PO BID@1200,1700 12/16/16 04/09/22 Apixaban [Eliquis] 5 mg PO BID-W/MEALS 09/27/18 04/09/22 Pravastatin Sodium [Pravachol] 20 mg PO W/SUPPER 09/27/18 04/09/22 HYDROcodone/APAP 5-325MG [[place] 1 tab PO BID@0900,2100 12/31/20 04/09/22 5-325] Levothyroxine Sodium [Synthroid] 125 mcg PO DAILY@0800 12/31/20 04/09/22 Milk Thistle 250mg 250 mg PO BID@1200,1700 12/31/20 04/09/22 Aspirin 81 mg PO W/LUNCH 03/15/21 04/09/22 Cholecalciferol (Vitamin D3) 125 mcg PO HS 03/15/21 04/09/22 [Vitamin D3 (125 MCG = 5,000 IU)] Cyanocobalamin (Vitamin B-12) 500 mcg PO Q48H 03/15/21 04/09/22 [Vitamin B-12] Acetaminophen [Tylenol] 500 mg PO TID PRN 06/24/21 04/09/22 Cinnamon 250mg 250 mg PO BID@0900,1200 06/24/21 04/09/22 Diclofenac Sodium Gel [Voltaren 2 gm TOPICAL DAILY PRN 06/24/21 04/09/22 Gel] Insulin Aspart [NovoLOG Flexpen] 12 units SQ AC-TID 06/24/21 04/09/22 Insulin Detemir [Levemir Flextouch 14 units SQ HS 06/24/21 04/09/22 Pen] Latanoprost/Pf [Latanoprost 0.005% 1 drop BOTH EYES HS 06/24/21 04/09/22 Eye Drop] calcitrioL [Rocaltrol] 0.25 mcg PO BHATTI 06/24/21 04/09/22 Fluticasone Nasal [place] [Flonase 2 spray EA NOSTRIL DAILY PRN 10/29/21 04/09/22 Nasal [place]] Mupirocin 2% Oint [Bactroban 2% 1 applic TOPICAL TID 10/29/21 04/09/22 Oint] diphenhydrAMINE HCL [Benadryl] 25 mg PO DAILY PRN 10/29/21 04/09/22 ALPRAZolam [Xanax] 0.25 mg PO DAILY PRN 04/09/22 04/09/22 Previous Rx's Medication Instructions Recorded DULoxetine HCL [Cymbalta] 60 mg PO HS cap 11/03/21 Metoprolol Tartrate [Lopressor] 50 mg PO BID tab 04/11/22 cefUROXime axetiL [Cefuroxime] 500 mg PO BID 10 Days #20 tab 04/11/22 Allergies Allergy/AdvReac Type Severity Reaction Status Date / Time adhesive tape Allergy Rash/Hives Verified 04/09/22 10:23 Penicillins Allergy Anaphylaxis Verified 04/09/22 10:23 triamcinolone Allergy Unknown Verified 04/09/22 10:23 venom-honey bee Allergy Swelling Verified 04/09/22 10:23 caffeine AdvReac Nausea & Verified 04/09/22 10:23 Vomiting & Diarrhea hydrocodone bitartrate AdvReac Itching Verified 04/09/22 10:23 [From Lorcet (hydrocodone)] tramadol HCl [From Ultram] AdvReac Itching Verified 04/09/22 10:23 Review of Systems ROS Statement: Those systems with pertinent positive or pertinent negative responses have been documented in the HPI. ROS Other: All systems not noted in ROS Statement are negative. Past Medical History Past Medical History: Atrial Fibrillation, Chest Pain / Angina, Dementia, Diabetes Mellitus, Eye Disorder, Fibromyalgia, GERD/Reflux, Hyperlipidemia, Hy pertension, Osteoarthritis (OA), Pneumonia, Renal Disease, Rheumatoid Arthritis (RA), Thyroid Disorder Additional Past Medical History / Comment(s): Mild glaucoma stable. BURSITIS, hx falls, past chronic sacral wound, occ Vertigo, anemia, Constipation History of Any Multi-Drug Resistant Organisms: None Reported Past Surgical History: Adenoidectomy, Cholecystectomy, Hysterectomy, Joint Replacement, Orthopedic Surgery, Tonsillectomy Additional Past Surgical History / Comment(s): 3 RIGHT KNEE SURGERIES AND 2 LEFT, TOTAL KNEE REPLACEMENTS SURGERIES. D&C'S. Lap Ignacio-en-Y gastric bypass [place] [address] Zambrano , total hysterectomy for fibroid tumor, tubal ligation Past Anesthesia/Blood Transfusion Reactions: Motion Sickness Additional Past Anesthesia/Blood Transfusion Reaction / Comment(s): Pt received blood in 2012 without reaction. Past Psychological History: Depression Smoking Status: Never smoker Past Alcohol Use History: None Reported Past Drug Use History: None Reported - Past Family History Mother Family Medical History: Coronary Artery Disease (CAD) Additional Family Medical History / Comment(s): age 90 of heart failure. Had hx of Parkinsons and Narcolepsy Father Family Medical History: Coronary Artery Disease (CAD) Additional Family Medical History / Comment(s): age 73 of massive heart attack General Exam - General Exam Comments Initial Comments: GENERAL: Patient is well-developed and well-nourished. Patient is nontoxic and well- hydrated and is in no acute distress. ENT: Neck is soft and supple. No significant lymphadenopathy is noted. Oropharynx is clear. Moist mucous membranes. Neck has full range of motion without eliciting any pain. Patient has some mild tenderness in the occipital region of her skull. EYES: The sclera were anicteric and conjunctiva were pink and moist. Extraocular movements were intact and pupils were equal round and reactive to light. Eyelids were unremarkable. PULMONARY: Unlabored respirations. Good breath sounds bilaterally. No audible rales rhonchi or wheezing was noted. CARDIOVASCULAR: Patient is tachycardic with a irregularly irregular heart rate at about 135 beats a minute ABDOMEN: Soft and nontender with normal bowel sounds. SKIN: Skin is clear with no lesions or rashes and otherwise unremarkable. NEUROLOGIC: Patient is alert and oriented x3. Cranial nerves II through XII are grossly intact. Motor and sensory are also intact. Normal speech, volume and content. Symmetrical smile. MUSCULOSKELETAL: Normal extremities with adequate strength and full range of motion. Patient has 2+ edema bilaterally LYMPHATICS: No significant lymphadenopathy is noted PSYCHIATRIC: Normal psychiatric evaluation. Limitations: physical limitation Course Vital Signs 05/12/22 19:28 Temperature 97.7 F Pulse Rate 136 H Respiratory 18 Rate Blood Pressure 136/108 O2 Sat by Pulse 98 Oximetry Medical Decision Making - Medical Decision Making EKG was interpreted by me. EKG shows atrial fibrillation with rapid ventricular response at 122 bpm QRS is 120 QT interval 340 QTC is 412. Patient's EKG shows no ST segment elevation or depression I interpreted CT of the brain. CT of the brain shows no acute abnormality no acute bleed no mass. CT of the C-spine was interpreted by me. CT of the C-spine shows no fractures. Chest x-ray as interpreted by me chest x-ray shows mild pulmonary edema. Patient received Lasix in the emergency department and was started on a Cardizem drip for the heart rate that jumped up to 145 and was A. fib. I spoke with Dr. Vergara he agreed to admit the patient admitted the patient I consult cardiology. - Lab Data Result diagrams: 05/12/22 20:55 Lab Results 05/12/22 05/12/22 Range/Units 20:55 20:55 WBC 10.9 H (3.8-10.6) k/uL RBC 4.21 (3.80-5.40) m/uL Hgb 12.6 (11.4-16.0) gm/dL Hct 39.0 (34.0-46.0) % MCV 92.7 (80.0-100.0) fL MCH 30.0 (25.0-35.0) pg MCHC 32.4 (31.0-37.0) g/dL RDW 13.6 (11.5-15.5) % Plt Count 258 (150-450) k/uL MPV 9.2 Neutrophils % 79 % Lymphocytes % 11 % Monocytes % 6 % Eosinophils % 2 % Basophils % 1 % Neutrophils # 8.7 H (1.3-7.7) k/uL Lymphocytes # 1.2 (1.0-4.8) k/uL Monocytes # 0.6 (0-1.0) k/uL Eosinophils # 0.3 (0-0.7) k/uL Basophils # 0.1 (0-0.2) k/uL Hypochromasia Moderate PT 10.8 (9.0-12.0) sec INR 1.0 (<1.2) APTT 27.3 (22.0-30.0) sec Critical Care Time Critical Care Time: Yes Total Critical Care Time: 35 Disposition Clinical Impression: Atrial fibrillation with RVR, Pulmonary edema Disposition: ADMITTED IP TO THIS HOSP Referrals: Taina Vergara MD [Primary Care Provider] - 1-2 days Time of Disposition: 21:40
--- NOTE | 2022-05-12 20:50 | CT ---
EXAMINATION TYPE: CT brain roma beatty con DATE OF EXAM: 05/12/2022 COMPARISON: 10/29/2021 HISTORY: pain after fall today/ AMS. CT DLP: 1333 mGycm Automated exposure control for dose reduction was used. Images obtained of the brain and cervical spine with no contrast. There is cerebral minimal cortical atrophy. There is patchy moderate hypodensity in the periventricular white matter. There is no mass e ffect or midline shift. No sign of intracranial hemorrhage. The calvarium is intact. The cervical vertebra have normal alignment. There is degenerative disc space narrowing in the mid an d lower cervical spine with spurring of the endplates and some encroachment on the spinal canal. Face t joints are intact. There is multilevel hypertrophic facet arthropathy. No compression fracture. No focal bone destruction. IMPRESSION: There is chronic small vessel ischemia. No acute intracranial abnormality. No significant change comp ared to the old exam. Cervical multilevel spondylotic changes. No fracture. No significant change compared to old exam.
[2022-05-12 21:02] LABS: Basophils # (A) 0.1 k/uL (0-0.2); Basophils % (A) 1 %; Eosinophils # (A) 0.3 k/uL (0-0.7); Eosinophils % (A) 2 %; HGB 12.6 gm/dL (11.4-16.0); Hypochromasia Moderate; Lymphocytes # (A) 1.2 k/uL (1.0-4.8); Lymphocytes % (A) 11 %; MCHC 32.4 g/dL (31.0-37.0); MCV 92.7 fL (80.0-100.0); Mean Platelet Volume 9.2; Monocytes # (A) 0.6 k/uL (0-1.0); Monocytes % (A) 6 %; Neutrophils # (A) 8.7 k/uL (1.3-7.7); Neutrophils % (A) 79 %; Platelet Count 258 k/uL (150-450); RBC 4.21 m/uL (3.80-5.40); RDW 13.6 % (11.5-15.5); WBC 10.9 k/uL (3.8-10.6)
[2022-05-12 21:11] LABS: Partial Thromboplastin Time 27.3 sec (22.0-30.0); Prothrombin Time 10.8 sec (9.0-12.0)
--- NOTE | 2022-05-12 21:19 | XR ---
EXAMINATION TYPE: XR chest 2V DATE OF EXAM: 05/12/2022 COMPARISON: 04/08/2022 HISTORY: Weakness TECHNIQUE: FINDINGS: Heart is enlarged. There is some pulmonary interstitial edema. No pleural effusion. There a re no hilar masses. Bony thorax is intact. There are chest leads. IMPRESSION: Mild pulmonary interstitial edema. No pleural fluid. This is not significantly different than last ex am. Heart failure is possible. Also consider pulmonary fibrosis.
[2022-05-12] MEDS ORDERED: FUROSEMIDE 10 MG/ML 2 ML VIAL IV ONE (21:38)
[2022-05-12] MEDS ORDERED: NITROGLYCERIN SL TABS 0.4 MG TAB SUBLINGUAL PRN (21:41)
[2022-05-12] MEDS: DILTIAZEM 125 MG in SODIUM CHLORIDE 0.9% 100 ML IV SCH (21:48)
[2022-05-12 21:50] LABS: Albumin 4.5 g/dL (3.5-5.0); Calcium 9.7 mg/dL (8.4-10.2); Magnesium 1.9 mg/dL (1.6-2.3); Potassium 4.1 mmol/L (3.5-5.1); Total Bilirubin 0.6 mg/dL (0.2-1.3)
[2022-05-12 22:44] LABS: Appearance,Urine Clear (Clear); Bacteria,Urine Rare /hpf; Bilirubin,Urine Negative (Negative); Blood,Urine Negative (Negative); Color,Urine Colorless; Glucose,Urine (UA) Negative (Negative); Ketones,Urine Negative (Negative); Leukocyte Esterase,Urine Small (Negative); Mucus,Urine Rare /hpf; Nitrite,Urine Negative (Negative); PH, Urine 7.5 (5.0-8.0); Protein,Urine Negative (Negative); RBC,Urine 2 /hpf (0-5); Specific Gravity,Urine 1.006 (1.001-1.035); Squamous Epithelial Cell,Urine <1 /hpf (0-4); Urobilinogen,Urine <2.0 mg/dL (<2.0); WBC,Urine 4 /hpf (0-5)
[2022-05-13] MEDS: ALPRAZolam 0.25 MG TAB PO PRN ×2 (03:49→22:52)
[2022-05-13] MEDS ORDERED: ASPIRIN 325 MG TAB PO SCH (09:00)
[2022-05-13] MEDS ORDERED: FLUTICASONE 50MCG/SPRAY NASAL 16GM EA NOSTRIL PRN (09:02)
[2022-05-13] MEDS ORDERED: diphenhydrAMINE 25 MG CAP PO PRN (09:02)
--- NOTE | 2022-05-13 09:02 | P.HPIM ---
History of Present Illness H&P Date: 05/13/22 Mirian Briceno, he is a 76-year-old female who presented to [facility] emergency room after sustaining a fall with head trauma, patient stated that she was transferring from one chair to another when she lost her balance and fell backward she hit the back of her head, she started having headache , she denies any loss of consciousness, she was evaluated in the emergency room and was found to have atrial fibrillation with rapid ventricular response. She was evaluated in the emergency room vital examination on presentation revealed a temperature of 97.7 pulse 136 respiration 18 blood pressure 136/108 pulse ox 98% on room air Laboratory data reveals Testing in the emergency room revealed EKG done in the emergency room revealed atrial fibrillation with rapid ventricular response, left anterior fascicular block. Computed tomography scan of the brain and cervical spine was done without contrast in the emergency room and revealed chronic small vessel ischemia no acute intracranial abnormality no cervical spine fracture. Chest x- ray done in the emergency room revealed evidence of pulmonary edema. Patient was admitted to medical floor for further evaluation and treatment, ca rdiology consultation was requested. Past medical history is significant for history of paroxysmal atrial fibrillation, history of hypertension, history of hyperlipidemia, history of chronic kidney disease stage III, history of chronic diastolic congestive heart failure, and recent history of urinary tract infection and bilateral lower extremity cellulitis. On review of systems patient is alert and oriented 3 in no apparent distress she is complaining of dizziness and headache at this time there is no fever or chills no chest pain no shortness of breath no cough no nausea or vomiting no abdominal pain no diarrhea no blood in the stools she has some burning with urination, and frequency with urination, no hematuria, she has bilateral pretibial areas of erythema, she denies any weakness or numbness in any of the extremities, she denies any change in vision speech or gait Past Medical History Past Medical History: Atrial Fibrillation, Chest Pain / Angina, Dementia, Diabetes Mellitus, Eye Disorder, Fibromyalgia, GERD/Reflux, Hyperlipidemia, Hypertension, Osteoarthritis (OA), Pneumonia, Renal Disease, Rheumatoid Arthritis (RA), Thyroid Disorder Additional Past Medical History / Comment(s): Mild glaucoma stable. BURSITIS, hx falls, past chronic sacral wound, occ Vertigo, anemia, Constipation History of Any Multi-Drug Resistant Organisms: None Reported Past Surgical History: Adenoidectomy, Cholecystectomy, Hysterectomy, Joint Replacement, Orthopedic Surgery, Tonsillectomy Additional Past Surgical History / Comment(s): 3 RIGHT KNEE SURGERIES AND 2 LEFT, TOTAL KNEE REPLACEMENTS SURGERIES. D&C'S. Lap Ignacio-en-Y gastric [place] [address] Zambrano , total hysterectomy for fibroid tumor, tubal ligation Past Anesthesia/Blood Transfusion Reactions: Motion Sickness Additional Past Anesthesia/Blood Transfusion Reaction / Comment(s): Pt received blood in 2012 without reaction. Past Psychological History: Depression Additional Psychological History / Comment(s): Pt's 44 year old son in 2013, pt's daughter states that's when pt's mental health started to decline. She has become more forgetful, confused to the point of getting mean, doesn't recognize her spouse at times and has gone outside at night looking for her dogs that have . Smoking Status: Never smoker Past Alcohol Use History: None Reported Past Drug Use History: None Reported - Past Family History Mother Family Medical History: Coronary Artery Disease (CAD) Additional Family Medical History / Comment(s): age 90 of heart failure. Had hx of Parkinsons and Narcolepsy Father Family Medical History: Coronary Artery Disease (CAD) Additional Family Medical History / Comment(s): age 73 of massive heart attack Medications and Allergies Home Medications Medication Instructions Recorded Confirmed Type Bumetanide [BUMEX] 1 mg PO BID-W/MEALS 10/02/14 05/12/22 History Pantoprazole Sodium 40 mg PO W/BRKFST 10/02/14 05/12/22 History traZODone HCL [Desyrel] 50 mg PO HS 06/06/15 05/12/22 History Gabapentin [Neurontin] 100 mg PO BID@1200,1700 12/16/16 05/12/22 History Apixaban [Eliquis] 5 mg PO BID-W/MEALS 09/27/18 05/12/22 History Pravastatin Sodium [Pravachol] 20 mg PO W/SUPPER 09/27/18 05/12/22 History HYDROcodone/APAP 5-325MG [[place] 1 tab PO BID@0900,2100 12/31/20 05/12/22 History 5-325] Milk Thistle 250mg 250 mg PO BID@1200,1700 12/31/20 05/12/22 History Aspirin 81 mg PO W/LUNCH 03/15/21 05/12/22 History Cholecalciferol (Vitamin D3) 125 mcg PO HS 03/15/21 05/12/22 History [Vitamin D3 (125 MCG = 5,000 IU)] Cyanocobalamin (Vitamin B-12) 500 mcg PO MOFR 03/15/21 05/12/22 History [Vitamin B-12] Acetaminophen [Tylenol] 500 mg PO TID PRN 06/24/21 05/12/22 History Cinnamon 250mg 250 mg PO BID@0900,1200 06/24/21 05/12/22 History Diclofenac Sodium Gel [Voltaren 2 gm TOPICAL QID PRN 06/24/21 05/12/22 History Gel] Insulin Aspart [NovoLOG Flexpen] 12 units SQ BID-W/MEALS 06/24/21 05/12/22 History Insulin Detemir [Levemir Flextouch 14 units SQ HS 06/24/21 05/12/22 History Pen] Latanoprost/Pf [Latanoprost 0.005% 1 drop BOTH EYES HS 06/24/21 05/12/22 History Eye Drop] calcitrioL [Rocaltrol] 0.25 mcg PO BHATTI@2100 06/24/21 05/12/22 History Fluticasone Nasal [place] [Flonase 2 spray EA NOSTRIL DAILY PRN 10/29/21 05/12/22 History Nasal [place]] diphenhydrAMINE HCL [Benadryl] 25 mg PO DAILY PRN 10/29/21 05/12/22 History DULoxetine HCL [Cymbalta] 60 mg PO HS cap 11/03/21 05/12/22 Rx ALPRAZolam [Xanax] 0.25 mg PO W/LUNCH 04/09/22 05/12/22 History Metoprolol Tartrate [Lopressor] 50 mg PO BID tab 04/11/22 05/12/22 Rx Insulin Aspart [NovoLOG Flexpen] 6 units SQ W/LUNCH 05/12/22 05/12/22 History Levothyroxine Sodium [Synthroid] 137 mcg PO AC-BRKFST 05/12/22 05/12/22 History Allergies Allergy/AdvReac Type Severity Reaction Status Date / Time adhesive tape Allergy Rash/Hives Verified 04/09/22 10:23 Penicillins Allergy Anaphylaxis Verified 04/09/22 10:23 triamcinolone Allergy Unknown Verified 04/09/22 10:23 venom-honey bee Allergy Swelling Verified 04/09/22 10:23 caffeine AdvReac Nausea & Verified 04/09/22 10:23 Vomiting & Diarrhea hydrocodone bitartrate AdvReac Itching Verified 04/09/22 10:23 [From Lorcet (hydrocodone)] tramadol HCl [From Ultram] AdvReac Itching Verified 04/09/22 10:23 Physical Exam Vitals: Vital Signs Temp Pulse Pulse Resp BP BP Pulse Ox 05/13/22 04:22 97.9 F 105 H 18 142/96 05/13/22 02:43 110 H 18 151/90 05/13/22 01:11 98.1 F 104 H 18 148/90 05/13/22 00:20 101 H 14 173/142 94 L 05/12/22 23:29 109 H 16 147/112 96 05/12/22 21:53 135 H 18 144/113 95 05/12/22 19:28 97.7 F 136 H 18 136/108 98 Intake and Output 05/12/22 05/13/22 05/13/22 22:59 06:59 14:59 Intake Total 2.833 Output Total 3600 Balance 2.833 -3600 Intake: Intake, IV Titration 2.833 Amount Diltiazem 125 mg In 2.833 Sodium Chloride 0.9% 100 ml @ 5 MG/HR 5 mls/hr IV .Q24H [facility] Rx#:[id number] Output: Urine 3600 Other: Voiding Method External Catheter Weight 65.771 kg 65.771 kg In general patient is alert and oriented x 3 in no distress HEENT head normocephalic and atraumatic Neck is supple no JVD no goiter no lymphadenopathy no carotid bruit Chest examination is clear to auscultation no crackles no wheezing Cardiac exam reveals regular heart sounds S1 and S2 no gallops no murmurs Abdomen is soft nontender no organomegaly with normal bowel sounds Extremity exam reveals no edema no cyanosis or clubbing Neurological examination reveals no gross focal deficits Results CBC & Chem 7: 05/12/22 20:55 05/12/22 20:55 Labs: Abnormal Lab Results - Last 24 Hours (Table) 05/12/22 05/12/2222 Range/Units 20:55 20:55 22:03 WBC 10.9 H (3.8-10.6) k/uL Neutrophils # 8.7 H (1.3-7.7) k/uL Carbon Dioxide 32 H (22-30) mmol/L BUN 38 H (7-17) mg/dL Glucose 113 H (74-99) mg/dL AST 48 H (14-36) U/L Alkaline Phosphatase 130 H (38-126) U/L Ur Leukocyte Esterase Small H (Negative) Urine Bacteria Rare H (None) /hpf Urine Mucus Rare H (None) /hpf Thrombosis Risk Factor Assmnt - Choose All That Apply Each Risk Factor Represents 3 Points: Age 75 years or older Thrombosis Risk Factor Assessment Total Risk Factor Score: 3 Thrombosis Risk Factor Assessment Level: Moderate Risk Assessment and Plan Plan: Atrial fibrillation with rapid ventricular response, patient has a known history of atrial fibrillation Underlying history of hypertension Underlying history of hypothyroidism Underlying history of insulin-dependent diabetes mellitus Underlying history of chronic diastolic congestive heart failure Underlying history of chronic kidney disease stage III Recent admission for UTI and bilateral lower extremity cellulitis Underlying history of osteoarthritis At this time patient was admitted to telemetry floor She was started on IV Cardizem drip She was started on IV Lasix Home medications reviewed and reordered Cardiology consultation requested Will follow closely
[2022-05-13] MEDS: FUROSEMIDE 10 MG/ML 2 ML VIAL IV SCH ×2 (09:18→20:02)
[2022-05-13 09:35] LABS: Chol/HDL Ratio 1.88 Ratio; LDL Cholesterol,Calculated 56.3 mg/dL (0.0-131.0)
[2022-05-13] MEDS: ACETAMINOPHEN TAB 500 MG TAB PO PRN (09:50)
[2022-05-13] MEDS: METOPROLOL TARTRATE 50 MG TAB PO SCH ×2 (09:50→20:02)
[2022-05-13] MEDS: APIXABAN 5 MG TAB PO SCH ×2 (09:52→17:13)
--- NOTE | 2022-05-13 10:37 | P.CRDCN ---
History of Present Illness History of present illness: This is a 76-year-old female with a past medical history significant for congestive heart failure, paroxysmal atrial fibrillation, diabetes, hypothyroidism, hypertension, and hyperlipidemia. Patient follows with Dr. Arana in the office. We have been asked to see the patient in consultation for A. fib with RVR. Patient is confused at bedside, poor historian. Per , there are some underlying dementia symptoms at home where she is misplacing things and putting soap in the coffee machine. She came to the hospital because she lost her balance and fell. She did not have a syncopal episode. She was transferring from one chair to another and fell backward and hit her head. She was brought to the ER, found to be in A fib with RVR, started on cardizem drip. She is alert, has no complaints. Denies any chest pain, shortness of breath, palpitations. She denies any lightheadedness or dizziness. She does have increased LE edema bilaterally. She endorses "feeling sick" at home, but unable to elaborate. She is currently in the ER, on IV Cardizem, HR have improved low 100s. DIAGNOSTICS: * EKG reveals A. fib with RVR, HR 122 * Chest xray there is mild pulmonary interstitial edema no change from last exam. Consider pulmonary fibrosis * Head and cervical spine CT was no acute abnormality reported * Laboratory data: WC 10.9. Hemoglobin 12.6. Platelets 258., Troponin negative 3, sodium 137, potassium 4.1, BUN 38, serum creatinine 0.9, knees and 1.9 * Current home cardiac medications metoprolol titrate 50 mg twice a day, Eliquis 5 mg twice a day, aspirin 80 mg daily, Bumex 1 mg twice a day * Most recent echocardiogram obtained in October 2021 revealed ejection fraction 55- 60%, mild MR, moderate TR REVIEW OF SYSTEMS: At the time of my exam: CONSTITUTIONAL: Denies fever or chills. HEENT: Denies blurred vision, vision changes, or eye pain. Denies hemoptysis CARDIOVASCULAR: Denies chest pain. Denies orthopnea. Denies PND. Denies palpitations RESPIRATORY: Denies shortness of breath. GASTROINTESTINAL: Denies abdominal pain. Denies nausea or vomiting. HEMATOLOGIC: Denies bleeding disorders. GENITOURINARY: Denies any blood in urine. SKIN: Denies pruitis. Denies rash. PHYSICAL EXAM: VITAL SIGNS: Reviewed. GENERAL: Well-developed in no acute distress. HEENT: Head is normocephalic. Pupils are equal, round. Sclerae anicteric. Mucous membranes of the mouth are moist. Neck supple. No JVD LUNGS: Respirations even and unlabored. Lungs essentially clear to auscultation bilaterally. HEART: Tachycardic. Irregular rate and rhythm. S1 and S2 heard. ABDOMEN: Soft. Nondistended. Nontender. EXTREMITIES: Normal range of motion. No clubbing or cyanosis. Peripheral pulses intact. Bilateral lower extremity edema with redness just above the ankles bilaterally NEUROLOGIC: Awake and alert. Oriented x 1-2. ASSESSMENT: Persistent atrial fibrillation with RVR, on Eliquis S/p Mechanical fall at home, no syncope Increased confusion, symptoms of dementia per Recent UTI per , finished treatment Hypertension Hyperlipidemia Diabetes Chronic heart failure with preserved ejection fraction PLAN: Continue IV Cardizem Restart patient's beta annita Continue IV Lasix for additional 24 hours Monitor I/Os, daily weights, renal function and electrolytes Continue Eliquis for anticoagulation Continue telemetry monitoring Confusion/Dementia reports from family addressed by primary Further recommendations pending patient's course Nurse practitioner note has been reviewed by physician. Signing provider agrees with the documented findings, assessment, and plan of care. Past Medical History Past Medical History: Atrial Fibrillation, Chest Pain / Angina, Dementia, Diabetes Mellitus, Eye Disorder, Fibromyalgia, GERD/Reflux, Hyperlipidemia, Hypertension, Osteoarthritis (OA), Pneumonia, Renal Disease, Rheumatoid Ar thritis (RA), Thyroid Disorder Additional Past Medical History / Comment(s): Mild glaucoma stable. BURSITIS, hx falls, past chronic sacral wound, occ Vertigo, anemia, Constipation History of Any Multi-Drug Resistant Organisms: None Reported Past Surgical History: Adenoidectomy, Cholecystectomy, Hysterectomy, Joint Replacement, Orthopedic Surgery, Tonsillectomy Additional Past Surgical History / Comment(s): 3 RIGHT KNEE SURGERIES AND 2 LEFT, TOTAL KNEE REPLACEMENTS SURGERIES. D&C'S. Lap Ignacio-en-Y gastric bypass [place] [address] Zambrano , total hysterectomy for fibroid tumor, tubal ligation Past Anesthesia/Blood Transfusion Reactions: Motion Sickness Additional Past Anesthesia/Blood Transfusion Reaction / Comment(s): Pt received blood in 2012 without reaction. Past Psychological History: Depression Additional Psychological History / Comment(s): Pt's 44 year old son in 2013, pt's daughter states that's when pt's mental health started to decline. She has become more forgetful, confused to the point of getting mean, doesn't recognize her spouse at times and has gone outside at night looking for her dogs that have . Smoking Status: Never smoker Past Alcohol Use History: None Reported Past Drug Use History: None Reported - Past Family History Mother Family Medical History: Coronary Artery Disease (CAD) Additional Family Medical History / Comment(s): age 90 of heart failure. Had hx of Parkinsons and Narcolepsy Father Family Medical History: Coronary Artery Disease (CAD) Additional Family Medical History / Comment(s): age 73 of massive heart attack Medications and Allergies Home Medications Medication Instructions Recorded Confirmed Type Bumetanide [BUMEX] 1 mg PO BID-W/MEALS 10/02/14 05/12/22 History Pantoprazole Sodium 40 mg PO W/BRKFST 10/02/14 05/12/22 History traZODone HCL [Desyrel] 50 mg PO HS 06/06/15 05/12/22 History Gabapentin [Neurontin] 100 mg PO BID@1200,1700 12/16/16 05/12/22 History Apixaban [Eliquis] 5 mg PO BID-W/MEALS 09/27/18 05/12/22 History Pravastatin Sodium [Pravachol] 20 mg PO W/SUPPER 09/27/18 05/12/22 History HYDROcodone/APAP 5-325MG [[place] 1 tab PO BID@0900,2100 12/31/20 05/12/22 History 5-325] Milk Thistle 250mg 250 mg PO BID@1200,1700 12/31/20 05/12/22 History Aspirin 81 mg PO W/LUNCH 03/15/21 05/12/22 History Cholecalciferol (Vitamin D3) 125 mcg PO HS 03/15/21 05/12/22 History [Vitamin D3 (125 MCG = 5,000 IU)] Cyanocobalamin (Vitamin B-12) 500 mcg PO MOFR 03/15/21 05/12/22 History [Vitamin B-12] Acetaminophen [Tylenol] 500 mg PO TID PRN 06/24/21 05/12/22 History Cinnamon 250mg 250 mg PO BID@0900,1200 06/24/21 05/12/22 History Diclofenac Sodium Gel [Voltaren 2 gm TOPICAL QID PRN 06/24/21 05/12/22 History Gel] Insulin Aspart [NovoLOG Flexpen] 12 units SQ BID-W/MEALS 06/24/21 05/12/22 History Insulin Detemir [Levemir Flextouch 14 units SQ HS 06/24/21 05/12/22 History Pen] Latanoprost/Pf [Latanoprost 0.005% 1 drop BOTH EYES HS 06/24/21 05/12/22 History Eye Drop] calcitrioL [Rocaltrol] 0.25 mcg PO BHATTI@2100 06/24/21 05/12/22 History Fluticasone Nasal [place] [Flonase 2 spray EA NOSTRIL DAILY PRN 10/29/21 05/12/22 History Nasal [place]] diphenhydrAMINE HCL [Benadryl] 25 mg PO DAILY PRN 10/29/21 05/12/22 History DULoxetine HCL [Cymbalta] 60 mg PO HS cap 11/03/21 05/12/22 Rx ALPRAZolam [Xanax] 0.25 mg PO W/LUNCH 04/09/22 05/12/22 History Metoprolol Tartrate [Lopressor] 50 mg PO BID tab 04/11/22 05/12/22 Rx Insulin Aspart [NovoLOG Flexpen] 6 units SQ W/LUNCH 05/12/22 05/12/22 History Levothyroxine Sodium [Synthroid] 137 mcg PO AC-BRKFST 05/12/22 05/12/22 History Allergies Allergy/AdvReac Type Severity Reaction Status Date / Time adhesive tape Allergy Rash/Hives Verified 04/09/22 10:23 Penicillins Allergy Anaphylaxis Verified 04/09/22 10:23 triamcinolone Allergy Unknown Verified 04/09/22 10:23 venom-honey bee Allergy Swelling Verified 04/09/22 10:23 caffeine AdvReac Nausea & Verified 04/09/22 10:23 Vomiting & Diarrhea hydrocodone bitartrate AdvReac Itching Verified 04/09/22 10:23 [From Lorcet (hydrocodone)] tramadol HCl [From Ultram] AdvReac Itching Verified 04/09/22 10:23 Physical Exam Vitals: Vital Signs Temp Pulse Pulse Resp BP BP Pulse Ox 05/13/22 04:22 97.9 F 105 H 18 142/96 05/13/22 02:43 110 H 18 151/90 05/13/22 01:11 98.1 F 104 H 18 148/90 05/13/22 00:20 101 H 14 173/142 94 L 05/12/22 23:29 109 H 16 147/112 96 05/12/22 21:53 135 H 18 144/113 95 05/12/22 19:28 97.7 F 136 H 18 136/108 98 Intake and Output 05/12/22 05/13/22 05/13/22 22:59 06:59 14:59 Intake Total 2.833 Output Total 3600 Balance 2.833 -3600 Intake: Intake, IV Titration 2.833 Amount Diltiazem 125 mg In 2.833 Sodium Chloride 0.9% 100 ml @ 5 MG/HR 5 mls/hr IV .Q24H [facility] Rx#:[id number] Output: Urine 3600 Other: Voiding Method External Catheter Weight 65.771 kg 65.771 kg Results 05/12/22 20:55 05/12/22 20:55 Cardiac Enzymes 05/12/22 05/12/22 05/12/22 Range/Units 20:55 20:55 23:53 AST 48 H (14-36) U/L Troponin I <0.012 <0.012 (0.000-0.034) ng/mL 05/13/22 Range/Units 02:00 AST (14-36) U/L Troponin I 0.012 (0.000-0.034) ng/mL Coagulation 05/12/22 Range/Units 20:55 PT 10.8 (9.0-12.0) sec APTT 27.3 (22.0-30.0) sec CBC 05/12/22 Range/Units 20:55 WBC 10.9 H (3.8-10.6) k/uL RBC 4.21 (3.80-5.40) m/uL Hgb 12.6 (11.4-16.0) gm/dL Hct 39.0 (34.0-46.0) % Plt Count 258 (150-450) k/uL Comprehensive Metabolic Panel 05/12/22 Range/Units 20:55 Sodium 137 (137-145) mmol/L Potassium 4.1 (3.5-5.1) mmol/L Chloride 98 (98-107) mmol/L Carbon Dioxide 32 H (22-30) mmol/L BUN 38 H (7-17) mg/dL Creatinine 0.96 (0.52-1.04) mg/dL Glucose 113 H (74-99) mg/dL Calcium 9.7 (8.4-10.2) mg/dL AST 48 H (14-36) U/L ALT 30 (4-34) U/L Alkaline Phosphatase 130 H (38-126) U/L Total Protein 8.0 (6.3-8.2) g/dL Albumin 4.5 (3.5-5.0) g/dL Current Medications Generic Name Dose Route Start Last Admin Trade Name Freq PRN Reason Stop Dose Admin Alprazolam 0.25 mg 05/13/22 03:24 05/13/22 03:49 Alprazolam 0.25 Mg Tab PO 0.25 mg QID PRN Administration Anxiety Aspirin 325 mg 05/13/22 09:00 Aspirin 325 Mg Tab PO DAILY BUTCH Furosemide 20 mg 05/13/22 09:00 Furosemide 10 Mg/Ml 2 Ml Vial IV Q12HR [facility] Diltiazem HCl 125 mg/ Sodium 125 mls @ 5 mls/hr 05/12/22 21:45 05/12/22 22:22 Chloride IV 7 mg/hr .Q24H BUTCH 7 mls/hr Infusion 5 MG/HR Nitroglycerin 0.4 mg 05/12/22 21:41 Nitroglycerin Sl Tabs 0.4 Mg Tab SUBLINGUAL Q5M PRN Chest Pain Intake and Output 05/12/22 05/13/22 05/13/22 22:59 06:59 14:59 Intake Total 2.833 Output Total 3600 Balance 2.833 -3600 Intake: Intake, IV Titration 2.833 Amount Diltiazem 125 mg In 2.833 Sodium Chloride 0.9% 100 ml @ 5 MG/HR 5 mls/hr IV .Q24H [facility] Rx#:[id number] Output: Urine 3600 Other: Voiding Method External Catheter Weight 65.771 kg 65.771 kg 05/12/22 20:55 05/12/22 20:55
[2022-05-13] MEDS ORDERED: HYDROcodone/APAP 5-325MG 1 EACH TAB PO STA (10:41)
[2022-05-13] MEDS: GABAPENTIN 100 MG CAP PO SCH ×2 (11:05→17:13)
[2022-05-13] MEDS ORDERED: CINNAMON PO SCH (12:00)
[2022-05-13] MEDS ORDERED: MILK THISTLE PO SCH (12:00)
[2022-05-13 12:02] LABS: Glucose,Whole Blood 209 mg/dL (70-110)
[2022-05-13] MEDS: ALPRAZolam 0.25 MG TAB PO SCH (12:03)
[2022-05-13] MEDS: ASPIRIN 81 MG PO SCH (12:03)
[2022-05-13] MEDS ORDERED: INSULIN ASPART (NovoLOG) 100 UNIT/ML VIAL SQ SCH (12:30)
[2022-05-13] MEDS: BUMETANIDE 1 MG TAB PO SCH (17:17)
[2022-05-13 17:23] LABS: Glucose,Whole Blood 81 mg/dL (70-110)
[2022-05-13] MEDS: INSULIN ASPART (NovoLOG) 100 UNIT/ML VIAL SQ SCH (17:23)
[2022-05-13] MEDS ORDERED: PRAVASTATIN SODIUM 20 MG TAB PO SCH (17:30)
[2022-05-13 20:00] LABS: Glucose,Whole Blood 161 mg/dL (70-110)
[2022-05-13] MEDS: HYDROcodone/APAP 5-325MG 1 EACH TAB PO SCH (20:02)
[2022-05-13] MEDS ORDERED: CHOLECALCIFEROL 125 MCG (5000 IU) TABLET PO SCH (21:00)
[2022-05-13] MEDS ORDERED: LATANOPROST 0.005% OPHTH DROPS 2.5 ML BTL BOTH EYES SCH (21:00)
[2022-05-13] MEDS ORDERED: INSULIN DETEMIR (LEVEMIR) 100 UNIT/ML SYR SQ SCH (21:00)
[2022-05-13] MEDS ORDERED: traZODone HCL 50 MG TAB PO SCH (21:00)
[2022-05-13] MEDS ORDERED: DULoxetine HCL 60 MG CAPSULE.DR PO SCH (21:00)
[2022-05-14] MEDS: DILTIAZEM 125 MG in SODIUM CHLORIDE 0.9% 100 ML IV SCH (00:06)
[2022-05-14 04:56] VITALS: RESP 18
[2022-05-14 05:53] LABS: Glucose,Whole Blood 116 mg/dL (70-110)
[2022-05-14] MEDS: INSULIN ASPART (NovoLOG) 100 UNIT/ML VIAL SQ SCH (05:55)
[2022-05-14] MEDS: APIXABAN 5 MG TAB PO SCH (06:15)
[2022-05-14] MEDS: BUMETANIDE 1 MG TAB PO SCH (06:15)
[2022-05-14] MEDS ORDERED: LEVOTHYROXINE 137 MCG TAB PO SCH (07:30)
[2022-05-14] MEDS ORDERED: PANTOPRAZOLE 40 MG TABLET PO SCH (07:30)
[2022-05-14 08:24] LABS: Calcium 9.3 mg/dL (8.4-10.2); Potassium 3.6 mmol/L (3.5-5.1); Total Bilirubin 0.9 mg/dL (0.2-1.3); Total Protein 7.4 g/dL (6.3-8.2)
[2022-05-14] MEDS: HYDROcodone/APAP 5-325MG 1 EACH TAB PO SCH (08:27)
[2022-05-14] MEDS: METOPROLOL TARTRATE 50 MG TAB PO SCH (08:27)
[2022-05-14] MEDS: FUROSEMIDE 10 MG/ML 2 ML VIAL IV SCH (08:28)
[2022-05-14 08:42] LABS: Basophils % (A) 1 %; Eosinophils # (A) 0.3 k/uL (0-0.7); Eosinophils % (A) 4 %; HCT 39.7 % (34.0-46.0); HGB 12.9 gm/dL (11.4-16.0); Hypochromasia Moderate; Lymphocytes # (A) 1.3 k/uL (1.0-4.8); Lymphocytes % (A) 14 %; MCH 29.7 pg (25.0-35.0); MCHC 32.6 g/dL (31.0-37.0); Monocytes # (A) 0.9 k/uL (0-1.0); Monocytes % (A) 9 %; Neutrophils # (A) 6.5 k/uL (1.3-7.7); Neutrophils % (A) 70 %; Platelet Count 227 k/uL (150-450); RBC 4.36 m/uL (3.80-5.40); RDW 13.7 % (11.5-15.5); WBC 9.3 k/uL (3.8-10.6)
[2022-05-14] MEDS ORDERED: CYANOCOBALAMIN 500 MCG TAB PO SCH (09:00)
[2022-05-14 09:15] VITALS: BP 128/88; PULSE 104; TEMP 98
--- NOTE | 2022-05-14 10:29 | P.DS ---
Providers Date of admission: 05/12/22 21:41 Expected date of discharge: 05/14/22 Attending physician: Taina Vergara Consults: 05/12/22 21:41 Consult Physician Urgent Consulting Provider: [facility] Consult Reason/Comments: A. fib with rapid ventricular response Do you want consulting provider notified?: Yes Primary care physician: Taina Vergara [facility] Course: Discharge diagnosis Atrial fibrillation with rapid ventricular response, patient has a known history of atrial fibrillation Underlying history of hypertension Underlying history of hypothyroidism Underlying history of insulin-dependent diabetes mellitus Underlying history of chronic diastolic congestive heart failure Underlying history of chronic kidney disease stage III Recent admission for UTI and bilateral lower extremity cellulitis Underlying history of osteoarthritis Hospital course Mirian Briceno, he is a 76-year-old female who presented to [facility] emergency room after sustaining a fall with head trauma, patient stated that she was transferring from one chair to another when she lost her balance and fell backward she hit the back of her head, she started having headache , she denies any loss of consciousness, she was evaluated in the emergency room and was found to have atrial fibrillation with rapid ventricular response. She was evaluated in the emergency room vital examination on presentation revealed a temperature of 97.7 pulse 136 respiration 18 blood pressure 136/108 pulse ox 98% on room air Laboratory data reveals Testing in the emergency room revealed EKG done in the emergency room revealed atrial fibrillation with rapid ventricular response, left anterior fascicular block. Computed tomography scan of the brain and cervical spine was done without contrast in the emergency room and revealed chronic small vessel ischemia no acute intracranial abnormality no cervical spine fracture. Chest x- ray done in the emergency room revealed evidence of pulmonary edema. Patient was admitted to medical floor for further evaluation and treatment, cardiology consultation was requested. Past medical history is significant for history of paroxysmal atrial fibrillation, history of hypertension, history of hyperlipidemia, history of chronic kidney disease stage III, history of chronic diastolic congestive heart failure, and recent history of urinary tract infection and bilateral lower extremity cellulitis. On review of systems patient is alert and oriented 3 in no apparent distress she is complaining of dizziness and headache at this time there is no fever or chills no chest pain no shortness of breath no cough no nausea or vomiting no abdominal pain no diarrhea no blood in the stools she has some burning with urination, and frequency with urination, no hematuria, she has bilateral pretibial areas of erythema, she denies any weakness or numbness in any of the extremities, she denies any change in vision speech or gait On 05/14/2022 patient is alert and oriented 3. Patient and here to be DC'd home. Did discuss case with cardiology nurse practitioner Narcisa. Patient cleared for discharge. No changes to current medication regime. Patient to be DC'd home on current cardiac meds and follow-up outpatient with cardiology services. Patient denies chest pain or shortness of breath. Patient denies nausea vomiting or diarrhea. Patient denies any urinary burning or frequency Plan - Discharge Summary New Discharge Prescriptions: Continue Bumetanide [BUMEX] 1 mg PO BID-W/MEALS Pantoprazole Sodium 40 mg PO W/BRKFST traZODone HCL [Desyrel] 50 mg PO HS Gabapentin [Neurontin] 100 mg PO BID@1200,1700 Apixaban [Eliquis] 5 mg PO BID-W/MEALS Pravastatin Sodium [Pravachol] 20 mg PO W/SUPPER HYDROcodone/APAP 5-325MG [[place] 5-325] 1 tab PO BID@0900,2100 Milk Thistle 250mg 250 mg PO BID@1200,1700 Aspirin 81 mg PO W/LUNCH Latanoprost/Pf [Latanoprost 0.005% Eye Drop] 1 drop BOTH EYES HS Insulin Aspart [NovoLOG Flexpen] 12 units SQ BID-W/MEALS Acetaminophen [Tylenol] 500 mg PO TID PRN PRN Reason: Pain Cinnamon 250mg 250 mg PO BID@0900,1200 Fluticasone Nasal [place] [Flonase Nasal [place]] 2 spray EA NOSTRIL DAILY PRN PRN Reason: Allergy Symptoms DULoxetine HCL [Cymbalta] 60 mg PO HS cap Metoprolol Tartrate [Lopressor] 50 mg PO BID tab Levothyroxine Sodium [Synthroid] 137 mcg PO AC-BRKFST Insulin Aspart [NovoLOG Flexpen] 6 units SQ W/LUNCH Cholecalciferol (Vitamin D3) [Vitamin D3 (125 MCG = 5,000 IU)] 125 mcg PO HS Cyanocobalamin (Vitamin B-12) [Vitamin B-12] 500 mcg PO MOFR Insulin Detemir [Levemir Flextouch Pen] 14 units SQ HS calcitrioL [Rocaltrol] 0.25 mcg PO BHATTI@2100 Diclofenac Sodium Gel [Voltaren Gel] 2 gm TOPICAL QID PRN PRN Reason: Pain diphenhydrAMINE HCL [Benadryl] 25 mg PO DAILY PRN PRN Reason: Allergy Symptoms ALPRAZolam [Xanax] 0.25 mg PO W/LUNCH Discharge Medication List Bumetanide [BUMEX] 1 mg PO BID-W/MEALS 10/02/14 [History] Pantoprazole Sodium 40 mg PO W/BRKFST 10/02/14 [History] traZODone HCL [Desyrel] 50 mg PO HS 06/06/15 [History] Gabapentin [Neurontin] 100 mg PO BID@1200,1700 12/16/16 [History] Apixaban [Eliquis] 5 mg PO BID-W/MEALS 09/27/18 [History] Pravastatin Sodium [Pravachol] 20 mg PO W/SUPPER 09/27/18 [History] HYDROcodone/APAP 5-325MG [[place] 5-325] 1 tab PO BID@0900,2100 12/31/20 [History] Milk Thistle 250mg 250 mg PO BID@1200,1700 12/31/20 [History] Aspirin 81 mg PO W/LUNCH 03/15/21 [History] Cholecalciferol (Vitamin D3) [Vitamin D3 (125 MCG = 5,000 IU)] 125 mcg PO HS 03/15/21 [History] Cyanocobalamin (Vitamin B-12) [Vitamin B-12] 500 mcg PO MOFR 03/15/21 [History] Acetaminophen [Tylenol] 500 mg PO TID PRN 06/24/21 [History] Cinnamon 250mg 250 mg PO BID@0900,1200 06/24/21 [History] Diclofenac Sodium Gel [Voltaren Gel] 2 gm TOPICAL QID PRN 06/24/21 [History] Insulin Aspart [NovoLOG Flexpen] 12 units SQ BID-W/MEALS 06/24/21 [History] Insulin Detemir [Levemir Flextouch Pen] 14 units SQ HS 06/24/21 [History] Latanoprost/Pf [Latanoprost 0.005% Eye Drop] 1 drop BOTH EYES HS 06/24/21 [History] calcitrioL [Rocaltrol] 0.25 mcg PO BHATTI@2100 06/24/21 [History] Fluticasone Nasal [place] [Flonase Nasal [place]] 2 spray EA NOSTRIL DAILY PRN 10/29/21 [History] diphenhydrAMINE HCL [Benadryl] 25 mg PO DAILY PRN 10/29/21 [History] DULoxetine HCL [Cymbalta] 60 mg PO HS cap 11/03/21 [Rx] ALPRAZolam [Xanax] 0.25 mg PO W/LUNCH 04/09/22 [History] Metoprolol Tartrate [Lopressor] 50 mg PO BID tab 04/11/22 [Rx] Insulin Aspart [NovoLOG Flexpen] 6 units SQ W/LUNCH 05/12/22 [History] Levothyroxine Sodium [Synthroid] 137 mcg PO AC-BRKFST 05/12/22 [History] Follow up Appointment(s)/Referral(s): Taina Vergara MD [Primary Care Provider] - 1-2 days Piter Malcolm MD [STAFF PHYSICIAN] - 1 Week Discharge Disposition: HOME SELF-CARE
[2022-05-14] MEDS: GABAPENTIN 100 MG CAP PO SCH (11:24)
[2022-05-14] MEDS: ACETAMINOPHEN TAB 500 MG TAB PO PRN (11:24)
[2022-05-14] MEDS: ALPRAZolam 0.25 MG TAB PO SCH (11:25)
[2022-05-14] MEDS: ASPIRIN 81 MG PO SCH (11:25)
[2022-05-14 11:52] LABS: Glucose,Whole Blood 155 mg/dL (70-110)
--- NOTE | 2022-05-14 12:11 | CA ---
Transthoracic Echo Report Name: Mirian Briceno Age: 76 Gender: F : 1945 Exam Date: 05/13/2022 11:05 Exam Location: [place] [facility] Ht (in): 62 Wt (lb): 145 Ordering Physician: Narcisa Hewitt Attending/Referring Phys: Paint Mixer Tana Arellano, JORGE Procedure CPT: Indications: A fib with RVR, CHF Cardiac Hx: Technical Quality: Contrast 1: Total Dose (mL): Contrast 2: Total Dose (mL): MEASUREMENTS (Male / Female) Normal Values 2D ECHO LV Diastolic Diameter PLAX 4.6 cm 4.2 - 5.9 / 3.9 - 5.3 cm LV Systolic Diameter PLAX 3.8 cm IVS Diastolic Thickness 0.9 cm 0.6 - 1.0 / 0.6 - 0.9 cm LVPW Diastolic Thickness 1.3 cm 0.6 - 1.0 / 0.6 - 0.9 cm LV Relative Wall Thickness 0.5 RV Internal Dim ED PLAX 3.3 cm LA Systolic Diameter LX 3.8 cm 3.0 - 4.0 / 2.7 - 3.8 cm M-MODE Aortic Root Diameter MM 2.8 cm LA Systolic Diameter MM 3.8 cm LA Ao Ratio MM 1.3 MV E Point Septal Separation 0.9 cm AV Cusp Separation MM 1.6 cm DOPPLER TR Peak Velocity 252.1 cm/s TR Peak Gradient 25.4 mmHg Right Ventricular Systolic Press 30.4 mmHg FINDINGS Left Ventricle Left ventricular ejection fraction is estimated at 40%. Left ventricular cavity size normal. Mildly increased left ventricular wall thickness. Right Ventricle Normal right ventricular size and function. Right ventricular systolic pressure within normal limits. Right Atrium Normal right atrial size. Left Atrium Normal left atrial size. Mitral Valve Mitral annular calcification. Mild mitral regurgitation. Aortic Valve Trileaflet aortic valve. Tricuspid Valve Structurally normal tricuspid valve. Mild tricuspid regurgitation. Pulmonic Valve Structurally normal pulmonic valve. Pericardium Normal pericardium. Aorta Normal size aortic root and proximal ascending aorta. CONCLUSIONS Reduced LV systolic function at around 40% Tricuspid regurgitation 1-2+ Previewed by: Dr. Brian Catalan MD (Electronically Signed) Final Date: 14 May 2022 12:10
--- NOTE | 2022-05-14 14:11 | P.PN ---
Subjective This is a 76-year-old female with a past medical history significant for congestive heart failure, paroxysmal atrial fibrillation, diabetes, hypothyr oidism, hypertension, and hyperlipidemia. Patient follows with Dr. Arana in the office. We have been asked to see the patient in consultation for A. fib with RVR. Patient is confused at bedside, poor historian. Per , there are some underlying dementia symptoms at home where she is misplacing things and putting soap in the coffee machine. She came to the hospital because she lost her balance and fell. She did not have a syncopal episode. She was transferring from one chair to another and fell backward and hit her head. She was brought to the ER, found to be in A fib with RVR, started on cardizem drip and her HR improved. 05/14/2022 Patient seen and examined at bedside, no distress. She continues to be in A. fib with a heart rate better controlled in the 80s-90s. She is on anticoa gulation with Eliquis. She has been transitioned to her home Bumex dose. She is on metoprolol tartrate 50 mg twice a day Her echocardiogram revealed EF of 40%, mild mitral regurgitation, mild tricuspid regurgitation. GENERAL: In no acute distress. NECK: Supple without JVD LUNGS: Breath sounds clear to auscultation bilaterally. Respiration equal and unlabored. No wheezes, rales or rhonchi. HEART: Irregular rate and rhythm without murmurs, rubs or gallops. S1 and S2 heard. EXTREMITIES: Normal range of motion, no edema. No clubbing or cyanosis. Peripheral pulses intact. 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 Recommend follow patient with Dr. Arana. Please reach out with any further questions or concerns Nurse Practitioner note has been reviewed, I agree with a documented findings and plan of care. Patient was seen and examined. Objective - Vital Signs Vital signs: Vital Signs Temp 98.0 F 05/14/22 08:00 Pulse 104 H 05/14/22 08:00 Resp 18 05/14/22 08:00 BP 128/88 05/14/22 08:00 Pulse Ox 98 05/14/22 08:00 FiO2 Intake & Output 05/13/22 05/14/22 05/14/22 18:59 06:59 18:59 Intake Total 180 Output Total 1400 1000 Balance 180 -1400 -1000 Weight 76.5 kg Intake: Oral 180 Output: Urine 1400 1000 Other: Voiding Method External Catheter External Catheter External Catheter - Labs CBC & Chem 7: 05/14/22 07:48 05/14/22 07:48 Labs: Abnormal Lab Results - Last 24 Hours (Table) 05/13/22 05/14/22 05/14/22 Range/Units 19:59 05:51 07:48 Carbon Dioxide 34 H (22-30) mmol/L BUN 24 H (7-17) mg/dL POC Glucose (mg/dL) 161 H 116 H (70-110) mg/dL AST 40 H (14-36) U/L 05/14/22 Range/Units 11:50 Carbon Dioxide (22-30) mmol/L BUN (7-17) mg/dL POC Glucose (mg/dL) 155 H (70-110) mg/dL AST (14-36) U/L
== END 2022-05-14 12:57 | disposition home or self-care (01) | DRG 309 ==
LOC: EC 19:27 → 3SCARD 21:41
PROVIDERS: ADMIT Internal Medicine; ATTEND Internal Medicine
DX: I48.19 Other persistent atrial fibrillation (principal); F03.93 Unspecified dementia, unspecified severity, with mood disturbance; I13.0 Hypertensive heart and chronic kidney disease with heart failure and stage 1 through stage 4 chronic kidney disease, or unspecified chronic kidney disease; I50.42 Chronic combined systolic (congestive) and diastolic (congestive) heart failure; E11.22 Type 2 diabetes mellitus with diabetic chronic kidney disease; E03.9 Hypothyroidism, unspecified; N18.30 Chronic kidney disease, stage 3 unspecified; M06.9 Rheumatoid arthritis, unspecified; S09.90XA Unspecified injury of head, initial encounter; E78.5 Hyperlipidemia, unspecified; M19.90 Unspecified osteoarthritis, unspecified site; I44.4 Left anterior fascicular block; R35.0 Frequency of micturition; R30.9 Painful micturition, unspecified; M79.7 Fibromyalgia; I25.5 Ischemic cardiomyopathy; W01.190A Fall on same level from slipping, tripping and stumbling with subsequent striking against furniture, initial encounter; Z96.653 Presence of artificial knee joint, bilateral; Y92.009 Unspecified place in unspecified non-institutional (private) residence as the place of occurrence of the external cause; Z79.01 Long term (current) use of anticoagulants; Z79.890 Hormone replacement therapy; Z79.899 Other long term (current) drug therapy; Z87.440 Personal history of urinary (tract) infections; Z79.4 Long term (current) use of insulin; Z98.84 Bariatric surgery status; Z79.82 Long term (current) use of aspirin; Z88.0 Allergy status to penicillin; Z91.030 Bee allergy status; Z91.018 Allergy to other foods; Z91.048 Other nonmedicinal substance allergy status; Z88.8 Allergy status to other drugs, medicaments and biological substances; Z88.5 Allergy status to narcotic agent
CPT/HCPCS: 36415; 70450; 71046; 72125; 80053; 80061; 81001; 83735; 84484; 85025; 85610; 85730; 93005; 93306; 96374; 96375; 96376; 99291

== ENCOUNTER 2022-06-07 15:25 | Emergency (ER) | payer MEDICARE, BC ==
[2022-06-07 15:46] LABS: ABG Base Excess -9.1 mmol/L; ABG HCO3 15 mmol/L (21-25); ABG Oxygen Saturation 98.1 % (94-97); ABG PCO2 23 mmHg (35-45); ABG PH 7.43 (7.35-7.45); ABG PO2 185 mmHg (83-108); ABG TCO2 16 mmol/L (19-24); Allen Test Performed? Yes
[2022-06-07 15:50] VITALS: TEMP 97.5
[2022-06-07 15:53] VITALS: BP 66/53
[2022-06-07 16:40] VITALS: PULSE 0; RESP 0
--- NOTE | 2022-06-07 16:55 | ED ---
General Adult HPI - General Chief complaint: Arrhythmia/Palpitations Stated complaint: unresponsive Time Seen by Provider: 06/07/22 15:25 Source: patient, family, EMS, RN notes reviewed, old records reviewed Mode of arrival: EMS Limitations: altered mental status, physical limitation - History of Present Illness Initial comments: This is a 77 female who presents emergency Department unresponsive. According to EMS the patient was unresponsive for the last 2 days. Family is considering hospice today when they called EMS to bring the patient to the hospital. When the patient arrived she was unresponsive and her heart rate was 215 and it appeared she was in V. tach. Family arrived shortly thereafter I spoke with the 2 granddaughters and eventually the daughter by phone and they were all in agreement with no intervention at all no medications no CPR no intubation. states she has dementia and recently diagnosed with a urinary tract infection this had multiple other problems but he himself is a very poor historian. At this point in time we were going to admit the patient to hospice. - Related Data Home Medications Medication Instructions Recorded Confirmed Bumetanide [BUMEX] 1 mg PO AC-BID@0800,1200 10/02/14 06/07/22 Pantoprazole Sodium 40 mg PO W/BRKFST 10/02/14 06/07/22 traZODone HCL [Desyrel] 50 mg PO HS 06/06/15 06/07/22 Gabapentin [Neurontin] 100 mg PO BID@1200,1700 12/16/16 06/07/22 Apixaban [Eliquis] 5 mg PO BID-W/MEALS 09/27/18 06/07/22 Pravastatin Sodium [Pravachol] 20 mg PO W/SUPPER 09/27/18 06/07/22 HYDROcodone/APAP 5-325MG [[place] 1 tab PO BID@0900,2100 12/31/20 06/07/22 5-325] Milk Thistle 250mg 250 mg PO BID@1200,1700 12/31/20 06/07/22 Aspirin 81 mg PO W/LUNCH 03/15/21 06/07/22 Cholecalciferol (Vitamin D3) 125 mcg PO HS 03/15/21 06/07/22 [Vitamin D3 (125 MCG = 5,000 IU)] Cyanocobalamin (Vitamin B-12) 500 mcg PO Q7D@0800 03/15/21 06/07/22 [Vitamin B-12] Acetaminophen [Tylenol] 500 mg PO TID PRN 06/24/21 06/07/22 Cinnamon 250mg 250 mg PO BID@0900,1200 06/24/21 06/07/22 Diclofenac Sodium Gel [Voltaren 2 gm TOPICAL QID PRN 06/24/21 06/07/22 Gel] Insulin Aspart [NovoLOG Flexpen] 12 units SQ BID-W/MEALS 06/24/21 06/07/22 Insulin Detemir [Levemir Flextouch 16 units SQ HS 06/24/21 06/07/22 Pen] Latanoprost/Pf [Latanoprost 0.005% 1 drop BOTH EYES HS 06/24/21 06/07/22 Eye Drop] calcitrioL [Rocaltrol] 0.25 mcg PO BHATTI@0800 06/24/21 06/07/22 Fluticasone Nasal Flushing [Flonase 2 spr EA NOSTRIL DAILY PRN 10/29/21 06/07/22 Nasal Flushing] diphenhydrAMINE HCL [Benadryl] 25 mg PO DAILY PRN 10/29/21 06/07/22 ALPRAZolam [Xanax] 0.25 mg PO W/LUNCH 04/09/22 06/07/22 Insulin Aspart [NovoLOG Flexpen] 5 units SQ W/LUNCH PRN 05/12/22 06/07/22 Levothyroxine Sodium [Synthroid] 137 mcg PO AC-BRKFST 05/12/22 06/07/22 Metoprolol Tartrate [Lopressor] 50 mg PO BID-W/MEALS 06/07/22 06/07/22 Mupirocin 2% Oint [Bactroban 2% 1 applic TOPICAL TID 06/07/22 06/07/22 Oint] Previous Rx's Medication Instructions Recorded DULoxetine HCL [Cymbalta] 60 mg PO HS cap 11/03/21 Allergies Allergy/AdvReac Type Severity Reaction Status Date / Time adhesive tape Allergy Rash/Hives Verified 06/07/22 16:07 insect venom Allergy Swelling Verified 06/07/22 16:07 at sting site Penicillins Allergy Anaphylaxis Verified 06/07/22 16:07 triamcinolone Allergy Unknown Verified 06/07/22 16:07 venom-honey bee Allergy Swelling Verified 06/07/22 16:07 at sting site caffeine AdvReac Nausea & Verified 06/07/22 16:07 Vomiting & Diarrhea hydrocodone bitartrate AdvReac Itching Verified 06/07/22 16:07 [From Lorcet (hydrocodone)] tramadol HCl [From Ultram] AdvReac Itching Verified 06/07/22 16:07 Review of Systems ROS Statement: Those systems with pertinent positive or pertinent negative responses have been documented in the HPI. ROS Other: All systems not noted in ROS Statement are negative. Past Medical History Past Medical History: Atrial Fibrillation, Chest Pain / Angina, Dementia, Diabetes Mellitus, Eye Disorder, Fibromyalgia, GERD/Reflux, Hyperlipidemia, Hypertension, Osteoarthritis (OA), Pneumonia, Renal Disease, Rheumatoid Arthritis (RA), Thyroid Disorder Additional Past Medical History / Comment(s): Mild glaucoma stable. BURSITIS, hx falls, past chronic sacral wound, occ Vertigo, anemia, Constipation History of Any Multi-Drug Resistant Organisms: None Reported Past Surgical History: Adenoidectomy, Cholecystectomy, Hysterectomy, Joint Replacement, Orthopedic Surgery, Tonsillectomy Additional Past Surgical History / Comment(s): 3 RIGHT KNEE SURGERIES AND 2 LEF T, TOTAL KNEE REPLACEMENTS SURGERIES. D&C'S. Lap Ignacio-en-Y gastric bypass [place] [address] Zambrano , total hysterectomy for fibroid tumor, tubal ligation Past Anesthesia/Blood Transfusion Reactions: Motion Sickness Additional Past Anesthesia/Blood Transfusion Reaction / Comment(s): Pt received blood in 2012 without reaction. Past Psychological History: Depression Smoking Status: Never smoker Past Alcohol Use History: None Reported Past Drug Use History: None Reported - Past Family History Mother Family Medical History: Coronary Artery Disease (CAD) Additional Family Medical History / Comment(s): age 90 of heart failure. Had hx of Parkinsons and Narcolepsy Father Family Medical History: Coronary Artery Disease (CAD) Additional Family Medical History / Comment(s): age 73 of massive heart attack General Exam - General Exam Comments Initial Comments: GENERAL: Patient is well-developed and well-nourished. Patient is breathing on her own and does not appear to be in any distress EYES: The sclera were anicteric and conjunctiva were pink and moist. PULMONARY: Patient has labored respirations but there is no rhonchi or wheezing heard CARDIOVASCULAR: Patient's heart rate is 215 bpm ABDOMEN: Abdomen is not distended no gross abnormalities can be noted SKIN: Skin is clear with no lesions or rashes and otherwise unremarkable. NEUROLOGIC: Patient is is unresponsive MUSCULOSKELETAL: Patient is not moving any extremities PSYCHIATRIC: Unable to assess at this time Limitations: altered mental status, physical limitation Course Vital Signs 06/07/22 06/07/22 06/07/22 15:26 15:36 15:42 Temperature 97.5 F L Pulse Rate 227 H 220 H 213 H Pulse Rate [ Welding Machine Operator Arc ] Respiratory 32 H 40 H 40 H Rate Blood Pressure 83/28 105/54 66/53 O2 Sat by Pulse 89 L Oximetry 06/07/22 06/07/22 06/07/22 15:53 15:57 16:37 Temperature Pulse Rate 248 H 0 L Pulse Rate [ 244 H Welding Machine Operator Arc ] Respiratory 40 H 0 L Rate Blood Pressure O2 Sat by Pulse 92 L Oximetry Medical Decision Making - Medical Decision Making Was pt. sent in by a medical professional or institution? @ -None Did you speak to anyone other than the patient for history? @ -EMS and family gives all the history Did you review nursing and triage notes? @ -I agree with the nursing and triage notes Were old charts reviewed? @ -No Differential Diagnosis? @ -Differential Altered Mental Status: Hypoglycemia, DKA, hypercapnia, ETOH, overdose, CO poisoning, trauma, myxedema coma, HTN encephalopathy, infection, encephalitis, psychosis, intercranial hemorrhage, hepatic encephalopathy, meningitis, CVA, this is not meant to be an all-inclusive EKG interpreted by me (3pts min.)? @ -None X-rays interpreted by me (1pt min.)? @ -None CT interpreted by me (1pt min.)? @ -None U/S interpreted by me (1pt. min.)? @ -Known What testing was considered but not performed? (CT, X-rays, U/S, labs)? Why? @ -Nothing else was considered his family wanted no intervention What meds were considered but not given? Why? @ -None Did you discuss the management of the patient with other professionals? @ -I spoke with the medical office clerk after the patient was pronounced at 4:37 PM Did you reconcile home meds? @ -No Was smoking cessation discussed for >3mins.? @ -No Was critical care preformed (if so, how long)? @ -No Were there social determinants of health that impacted care today? How? (Homelessness, low income, unemployed, alcoholism, drug addiction, transportation, low edu. Level, literacy, decrease access to med. care, alf, rehab)? @ -No Was there de-escalation of care discussed even if they declined? (Discuss DNR or withdrawal of care, Hospice)? @ -No What co-morbidities impacted this encounter? (DM, HTN, Smoking, COPD, CAD, Cancer, CVA, Hep., AIDS, mental health diagnosis, sleep apnea, morbid obesity)? @ -No Was patient admitted / discharged? @ -Patient was pronounced at 4:37 PM and will be going to the morgue or home Undiagnosed new problem with uncertain prognosis? @ -No Drug Therapy requiring intensive monitoring for toxicity (Heparin, Nitro, Insulin, Cardizem)? @ -No Were any procedures done? @ -No Diagnosis/symptom? @ -Ventricular tachycardia Acute, or Chronic, or Acute on Chronic? @ -Acute Uncomplicated (without systemic symptoms) or Complicated (systemic symptoms)? @ -Complicated Side effects of treatment? @ -No Exacerbation, Progression, or Severe Exacerbation] @ -No Poses a threat to life or bodily function? @ -Yes patient from the ventricular tachycardia - Lab Data Lab Results 06/07/22 Range/Units 15:42 Sample Site Right Radial ABG pH 7.43 (7.35-7.45) ABG pCO2 23 L (35-45) mmHg ABG pO2 185 H (83-108) mmHg ABG HCO3 15 L (21-25) mmol/L ABG Total CO2 16 L (19-24) mmol/L ABG O2 Saturation 98.1 H (94-97) % ABG Base Excess -9.1 mmol/L German Test Yes FiO2 100 % Disposition Clinical Impression: Ventricular tachycardia Disposition: Referrals: Taina Vergara MD [Primary Care Provider] - 1-2 days Time of Disposition: 16:54 Preliminary Cause of : Ventricular tachycardia time of is 4:37 PM
== END 2022-06-07 18:50 | disposition expired ==
LOC: EC 15:25
DX: I47.20 Ventricular tachycardia, unspecified (principal); I48.91 Unspecified atrial fibrillation; E11.9 Type 2 diabetes mellitus without complications; K21.9 Gastro-esophageal reflux disease without esophagitis; E78.5 Hyperlipidemia, unspecified; I10 Essential (primary) hypertension; E07.9 Disorder of thyroid, unspecified; F32.A Depression, unspecified; M19.90 Unspecified osteoarthritis, unspecified site; Z79.1 Long term (current) use of non-steroidal anti-inflammatories (NSAID); Z79.890 Hormone replacement therapy; Z79.82 Long term (current) use of aspirin; Z79.01 Long term (current) use of anticoagulants; Z79.899 Other long term (current) drug therapy; Z79.4 Long term (current) use of insulin; Z79.84 Long term (current) use of oral hypoglycemic drugs; Z88.0 Allergy status to penicillin; Z88.5 Allergy status to narcotic agent; Z91.030 Bee allergy status; Z91.018 Allergy to other foods; Z91.038 Other insect allergy status; Z88.8 Allergy status to other drugs, medicaments and biological substances
CPT/HCPCS: 36600; 82805; 99285